=== PATIENT | male | born 1960 | race African-American/Black ===

== ENCOUNTER → 2018-03-26 | Outpatient (CLI) | payer BC, MEDICAID | END | disposition home or self-care (01) | LOC: LABWHC1 10:35 | PROVIDERS: ATTEND Surgery Plastic and Reconstructive Surgery | DX: K43.9 Ventral hernia without obstruction or gangrene (principal) | CPT/HCPCS: 36415; 86850; 86900; 86901 ==

== ENCOUNTER → 2018-04-02 | Outpatient (CLI) | payer BC, MEDICAID ==
[2018-04-02 16:05] LABS: HCT 44.2 % (39.0-53.0); HGB 14.8 gm/dL (13.0-17.5); MCH 28.4 pg (25.0-35.0); MCHC 33.5 g/dL (31.0-37.0); MCV 84.9 fL (80.0-100.0); Mean Platelet Volume 8.4; Platelet Count 254 k/uL (150-450); RDW 13.7 % (11.5-15.5); WBC 6.5 k/uL (3.8-10.6)
[2018-04-02 16:15] LABS: Anion Gap 10 mmol/L; Blood Urea Nitrogen 12 mg/dL (9-20); Carbon Dioxide 26 mmol/L (22-30); Chloride 104 mmol/L (98-107); Potassium 3.8 mmol/L (3.5-5.1); Sodium 140 mmol/L (137-145)
== END | disposition home or self-care (01) ==
LOC: LABPAT 15:45
PROVIDERS: ATTEND Internal Medicine Interventional Cardiology
DX: Z01.812 Encounter for preprocedural laboratory examination (principal)
CPT/HCPCS: 36415; 80051; 82565; 84520; 85027

== ENCOUNTER 2018-04-07 09:20 | Day surgery (SDC) | payer BC, MEDICAID ==
[2018-04-06 08:21] VITALS: BMI 30.9
[~2018-04-07 09:20] MED LIST: ALPRAZolam 0.25 MG TAB PO PRN; ASPIRIN 325 MG TAB PO ONE; SODIUM CHLORIDE 0.9% 1,000 ML in EMPTY BAG 1 BAG IV ONE
[2018-04-07 09:55] VITALS: TEMP 98
[2018-04-07] MEDS ORDERED: hydrALAZINE HCL 20 MG/ML 1 ML VIAL ONE (10:25)
[2018-04-07 10:26] LABS: Glucose,Whole Blood 146 mg/dL (75-99)
[2018-04-07] MEDS: MIDAZOLAM 2 MG/2 ML VIAL IV ONE ×2 (12:52→12:55)
[2018-04-07] MEDS ORDERED: LIDOCAINE 1% INJ 10MG/ML (20 ML MDV) SQ ONE (12:55)
[2018-04-07] MEDS ORDERED: HEPARIN SODIUM 1,000 UN/ML (10ML VL) IV ONE (12:57)
[2018-04-07] MEDS: VERAPAMIL SYRINGE (5 MG/10 ML) INTRAARTER ONE ×2 (12:57→13:05)
[2018-04-07] MEDS ORDERED: RX INFO: IV CONTRAST WAS GIVEN 1 EACH MISC MISCELLANE PRN (13:10)
[2018-04-07] MEDS ORDERED: SODIUM CHLORIDE 0.9% 1,000 ML IV SCH (13:15)
[2018-04-07] MEDS ORDERED: IOPAMIDOL-370 125ML BTL INJ ONE (13:16)
--- NOTE | 2018-04-07 13:38 | CC ---
CARDIAC CATHETERIZATION REPORT DATE OF SERVICE: 04/07/2018 PERFORMING PHYSICIAN: Terry Mir MD, merchandising execution manager. PROCEDURE PERFORMED: 1. Selective right and left coronary angiogram. 2. Left heart catheterization. INDICATION: This is a pleasant 58-year-old gentleman with history of diabetes as well as hypertension and history of smoking, was referred for cardiac assessment before abdominal surgery. The patient underwent myocardial perfusion imaging stress test and that revealed ischemia involving the inferior wall. Because of that, a heart catheterization was recommended. APPROACH: Right radial artery. COMPLICATION: None. LEVEL OF SEDATION: Moderate with sedation length of 12 minutes. PROCEDURE DESCRIPTION: After obtaining an informed consent, the patient was brought to the cardiac distillery laborer. The right radial artery was cannulated using micropuncture technique, the micropuncture wire passed easily then I placed a 6-Lithuanian sheath in the right common femoral artery. After that, I did give the patient 2 mg of verapamil IA and 10,000 units of heparin IV. I did after that selective right and left coronary angiogram using JR4 and JL3.5 catheters. I did perform left heart catheterization using JR4 catheter which flipped into the LV then I did pullback across the aortic valve. The procedure was completed without any complication. SELECTIVE CORONARY ANGIOGRAM: 1. The RCA is a large caliber vessel and it is a dominant vessel. It is angiographically normal. It bifurcates distally into PDA and PLV branches both are angiographically normal. 2. The left main is angiographically normal. It bifurcates into left circumflex, ramus intermedius, and left anterior descending artery. 3. The left circumflex is a large caliber vessel. It is a nondominant vessel. The left circumflex itself is angiographically normal. In the midportion it gives rise into a large OM branch which seems to be angiographically normal and distally gives rise into a second OM branch which seems to be angiographically normal. 4. The ramus intermedius bifurcates into 2 branches and both are angiographically normal. 5. The LAD: The proximal LAD looks angiographically normal. The mid and distal LAD are normal as well. HEMODYNAMICS: The left ventricular end-diastolic pressure was 12 mmHg and no gradient was identified across the aortic valve. CONCLUSION: 1. Normal coronary angiogram. 2. Normal left ventricular end-diastolic pressure. Postprocedure management is medical treatment. MMODL / IJN: [id number] /
--- NOTE | 2018-04-07 13:59 | LTR ---
DATE OF SERVICE: 04/07/2018 RE: Dillan Beckwith Dear Dr. Gibson; Mr. Dillan Mosquera underwent today a heart catheterization and that revealed normal coronaries. From the cardiovascular standpoint of view, the patient can proceed with the hernia surgery. Thank you for allowing us to participate in his care and please do not hesitate to call if you have any question or concern. Sincerely, MD EBENEZER Ellsworth / ASHLEYN: [id number] /
--- NOTE | 2018-04-07 13:59 | LTR ---
DATE OF SERVICE: 04/07/2017 RE: Dillan Mosquera Dear Dr. Perez; Mr. Dillan Mosquera was referred to see me for preop cardiac assessment before hernia surgery. As you know, he is a pleasant 58-year-old gentleman with diabetes, hypertension, and significant history of smoking. He underwent a myocardial perfusion imaging stress test which revealed inferior ischemia. The echocardiogram showed normal LV function with mild aortic insufficiency. Dillan underwent a heart catheterization and that revealed normal coronaries. I want to thank you for allowing me to participate in his care and please do not hesitate to call if you have any question or concern. Sincerely, MD EBENEZER Ellsworth / ASHLEYN: [id number] /
[2018-04-07 15:14] VITALS: RESP 16
[2018-04-07 15:44] VITALS: BP 162/89
[2018-04-07 17:39] LABS: Glucose,Whole Blood 157 mg/dL (75-99)
[2018-04-07] MEDS ORDERED: INSULIN ASPART 100 UNIT/ML 1 ML 10 ML VIAL SQ ONE (17:45)
[2018-04-07 17:55] VITALS: PULSE 68
== END 2018-04-07 18:26 | disposition home or self-care (01) ==
LOC: CATHCVL 09:20
PROVIDERS: ATTEND Internal Medicine Interventional Cardiology
DX: R94.39 Abnormal result of other cardiovascular function study (principal); I20.0 Unstable angina; E78.00 Pure hypercholesterolemia, unspecified; K46.9 Unspecified abdominal hernia without obstruction or gangrene; E11.9 Type 2 diabetes mellitus without complications; I10 Essential (primary) hypertension; Z82.49 Family history of ischemic heart disease and other diseases of the circulatory system; Z79.4 Long term (current) use of insulin; Z79.899 Other long term (current) drug therapy; F17.200 Nicotine dependence, unspecified, uncomplicated
CPT/HCPCS: 93458; C1894; J2250; J0360; J2001; J1644; Q9967

== ENCOUNTER 2018-05-27 14:42 | Day surgery (SDC) | payer BC, MEDICAID ==
[2018-05-18 12:32] VITALS: BMI 31.4
[~2018-05-27 14:42] MED LIST changes: -ALPRAZolam 0.25 MG TAB PO PRN; -ASPIRIN 325 MG TAB PO ONE; +DEXAMETHASONE SOD PHOSPHATE 10 MG/ML 1 ML VIAL IV ONE; +HEPARIN SODIUM,PORCINE 5,000 UNIT/ML 1 ML VIAL SQ ONE; +HYDROmorphone 1 MG/ML 1 ML SYRINGE IVP PRN; +LACTATED RINGERS 1,000 ML IV SCH; +LIDOCAINE 1% 20 ML VIAL (10MG/ML) FOR IV START INTRADERMA PRN; +ONDANSETRON 4 MG/2 ML VIAL IVP ONE; +SCOPOLAMINE 1.5MG/72HR PATCH TRANSDERM ONE; -SODIUM CHLORIDE 0.9% 1,000 ML in EMPTY BAG 1 BAG IV ONE; +ceFAZolin IN SWFI 2 GM/20 ML SYRINGE IVP ONE
== END 2018-05-27 15:19 | disposition home or self-care (01) ==
LOC: OR 14:42
PROVIDERS: ATTEND Surgery Plastic and Reconstructive Surgery
DX: Z53.8 Procedure and treatment not carried out for other reasons (principal); K43.9 Ventral hernia without obstruction or gangrene

== ENCOUNTER 2018-05-28 10:19 | Day surgery (SDC) | payer BC, MEDICAID ==
--- NOTE | 2018-05-28 08:44 | P.GSHP ---
History of Present Illness H&P Date: 05/28/18 CHIEF COMPLAINT: Ventral hernia HISTORY OF PRESENT ILLNESS: The patient is a 58-year-old male who presents with a history of swelling and pain along the abdomen from a hernia. Now he presents for surgical intervention. PAST MEDICAL HISTORY: Please see list. PAST SURGICAL HISTORY: Please see list. MEDICATIONS: Please see list. ALLERGIES: Please see list. SOCIAL HISTORY: No illicit drug use FAMILY HISTORY: No reports of Crohn disease or ulcerative colitis. REVIEW OF ORGAN SYSTEMS: CONSTITUTIONAL: No reports of fevers or chills. No reports of weight loss despite prior attempts. GI: Denies any blood in stools or constipation. PHYSICAL EXAM: VITAL SIGNS: Stable GENERAL: Well-developed pleasant male in no acute distress. HEENT: No scleral icterus. Extraocular movements grossly intact. Moist buccal mucosa. NECK: Supple without lymphadenopathy. CHEST: Unlabored respirations. Equal bilateral excursions. CARDIOVASCULAR: Regular rate and rhythm. Distal 2+ pulses. ABDOMEN: Soft, nondistended. Palpable defect of the abdomen. No peritoneal signs. MUSCULOSKELETAL: No clubbing, cyanosis, or edema. ASSESSMENT: 1. Ventral hernia PLAN: 1. Recommend proceeding with robotic ventral hernia repair with NO MESH per patient request 2. Benefits and risks of surgical intervention was discussed including possibility of open technique. 3. DVT prophylaxis. 4. Antibiotic prophylaxis. Past Medical History Past Medical History: Diabetes Mellitus, Hyperlipidemia, Hypertension, Sleep Apnea/CPAP/BIPAP Additional Past Medical History / Comment(s): uses CPAP History of Any Multi-Drug Resistant Organisms: None Reported Past Surgical History: Heart Catheterization, Hernia Repair Additional Past Surgical History / Comment(s): COLONOSCOPY Past Anesthesia/Blood Transfusion Reactions: No Reported Reaction Smoking Status: Former smoker - Past Family History Sister(s) Family Medical History: Cancer Additional Family Medical History / Comment(s): 1 SISTER FROM ESOPHAGEL CANCER. 1 SISTER HAD BREAST CANCER Medications and Allergies Home Medications Medication Instructions Recorded Confirmed Type INSULIN LISPRO (humaLOG) [humaLOG] 18 units SQ TID-W/MEALS 03/23/18 05/18/18 History Insulin Detemir [Levemir Flextouch] 50 units SQ HS 03/23/18 05/18/18 History PARoxetine HCL [Paxil] 20 mg PO HS 03/23/18 05/18/18 History Lisinopril [Zestril] 10 mg PO DAILY 04/06/18 05/18/18 History amLODIPine [Norvasc] 5 mg PO DAILY 04/06/18 05/18/18 History Allergies Allergy/AdvReac Type Severity Reaction Status Date / Time No Known Allergies Allergy Verified 05/18/18 12:29
[~2018-05-28 10:19] MED LIST changes: -DEXAMETHASONE SOD PHOSPHATE 10 MG/ML 1 ML VIAL IV ONE; -HYDROmorphone 1 MG/ML 1 ML SYRINGE IVP PRN; -LACTATED RINGERS 1,000 ML IV SCH; -LIDOCAINE 1% 20 ML VIAL (10MG/ML) FOR IV START INTRADERMA PRN; -ONDANSETRON 4 MG/2 ML VIAL IVP ONE; -SCOPOLAMINE 1.5MG/72HR PATCH TRANSDERM ONE
[2018-05-28] MEDS ORDERED: LACTATED RINGERS 1,000 ML IV SCH (10:52)
[2018-05-28] MEDS ORDERED: HYDROmorphone 0.5 MG/0.5 ML SYRINGE IVP PRN (10:52)
[2018-05-28] MEDS ORDERED: MIDAZOLAM 2 MG/2 ML VIAL IV PRN (10:52)
[2018-05-28] MEDS ORDERED: SCOPOLAMINE 1.5MG/72HR PATCH TRANSDERM ONE (10:52)
[2018-05-28] MEDS ORDERED: ONDANSETRON 4 MG/2 ML VIAL IVP ONE (10:52)
[2018-05-28] MEDS ORDERED: DEXAMETHASONE SOD PHOSPHATE 10 MG/ML 1 ML VIAL IV ONE (10:52)
[2018-05-28 11:14] LABS: Glucose,Whole Blood 156 mg/dL (75-99)
[2018-05-28] MEDS ORDERED: LIDOCAINE 1% 20 ML VIAL (10MG/ML) FOR IV START INTRADERMA ONE (11:35)
[2018-05-28] MEDS ORDERED: hydrALAZINE HCL 20 MG/ML 1 ML VIAL IVP ONE ×2 (13:13→13:38)
[2018-05-28] MEDS ORDERED: MIDAZOLAM 2 MG/2 ML VIAL ONE (13:52)
[2018-05-28] MEDS ORDERED: HYDROmorphone (PF) 1 MG/ML ONE (13:52)
[2018-05-28] MEDS ORDERED: GLYCOPYRROLATE 0.2 MG/ML 2 ML VIAL ONE (13:52)
[2018-05-28] MEDS ORDERED: NEOSTIGMINE 1 MG/ML 10 ML VIAL ONE (13:52)
[2018-05-28] MEDS ORDERED: ROCURONIUM BROMIDE 10 MG/ML 10 ML VIAL IV ONE (13:52)
[2018-05-28] MEDS ORDERED: MAGNESIUM SULFATE 4 MEQ/ML 2 ML VIAL ONE (13:52)
[2018-05-28] MEDS ORDERED: ePHEDrine SULFATE/0.9% NACL/PF 50 MG/5 ML SYRINGE IV ONE (13:52)
[2018-05-28] MEDS ORDERED: fentaNYL (PF) 50 MCG/ML 2 ML AMP ONE (13:52)
[2018-05-28] MEDS ORDERED: PROPOFOL 10 MG/ML 20 ML VIAL IV ONE (13:52)
[2018-05-28] MEDS ORDERED: BUPIVACAIN-EPI 0.25%-1:200,000 30 ML VIAL SQ ONE (14:37)
[2018-05-28] MEDS ORDERED: MAGNESIUM SULFATE-D5W PMX 1 GM in DEXTROSE/WATER 1 100ML.BAG IVPB SCH (15:15)
[2018-05-28] MEDS ORDERED: LACTATED RINGERS 1,000 ML IV ONE (15:49)
[2018-05-28 16:22] VITALS: TEMP 97.9
[2018-05-28] MEDS ORDERED: HYDROmorphone 1 MG/ML 1 ML SYRINGE IVP ONE ×2 (16:22→16:32)
[2018-05-28 16:27] LABS: Glucose,Whole Blood 268 mg/dL (75-99)
--- NOTE | 2018-05-28 16:28 | P.OP ---
Date of Procedure: 05/28/18 Description of Procedure: SURGEON: MARIA G GIBSON MD PREOPERATIVE DIAGNOSES: 1. Recurrent incarcerated epigastric ventral hernia, 4 cm 2. Obesity due to excess calories, BMI 32.1 3. Insulin-dependent diabetes type 2 4. Hypertensive heart disease 5. Depressive disorder POSTOPERATIVE DIAGNOSES: 1. Recurrent incarcerated epigastric ventral hernia, 4 cm, involving transverse mesocolon 2. Obesity due to excess calories, BMI 32.1 3. Insulin-dependent diabetes type 2 4. Hypertensive heart disease 5. Depressive disorder 6. Recurrent incarcerated umbilical hernia, 2 cm OPERATION: 1. Robotic-assisted da Rachel Xi laparoscopic repair of recurrent incarcerated epigastric ventral hernia 4 cm without mesh 2. Robotic-assisted da Rachel Xi laparoscopic repair of recurrent incarcerated umbilical hernia 2 cm without mesh ANESTHESIA: General with local ESTIMATED BLOOD LOSS: 5 mL. SPECIMENS: None. COMPLICATIONS: None. INDICATIONS: The patient is a 58-year-old male who presents with recurrent incarcerated epigastric hernia. Surgical options were described. The patient declined any mesh repair despite the increased possibility of recurrence. Surgical intervention with laparoscopic versus robotic and open techniques were reviewed. The patient wishes to avoid mesh. Benefits and risks were thoroughly described. Informed consent was obtained. DESCRIPTION OF PROCEDURE: The patient was brought into the operating room and laid in supine position. After general induction, the abdomen had been prepped and draped in standard sterile fashion. Ioban draping was also placed. Prior to incision, a timeout protocol was confirmed with surgical team regarding the patient's name including procedures to be performed. The robot was primed prior to the procedure. A field block using local anesthetic was placed along hernia site including the proposed port sites. Initial incision was made with an #11 blade along the left upper quadrant. A 0 degree 5 mm laparoscopic trocar entry was performed. Diagnostic laparoscopy demonstrated an incarcerated ventral hernia of the epigastrium involving the mid transverse mesocolon without obstruction. Three 8 mm trocars were placed along the right lateral abdominal wall. Placements of the ports were 12 cm from the target anatomy and 8 cm apart. The [employer] robot was previously primed, prepped and draped then docked along the right side of the patient. I then sat at the robot [employer] console where working arms of the robot were scissors, vessel sealer, needle armored truck driver, and graspers placed by the assistant production editor. To address the incarcerated mesocolon of the mid transverse colon, vessel sealer was used. The fascia of the hernia was incised superiorly and inferiorly along the midline to allow complete reduction of the incarcerated contents. No injury to the colon was found. Separately, an umbilical hernia 5 cm distal to the epigastric hernia was also identified consistent with recurrence. Fascial defect of the epigastric hernia was 4 cm. After the incarcerated contents was reduced, the peritoneal fat was cleaned from the abdominal wall. Next, hemostasis was checked with cautery. The hernia defect of 4-cm was oversewn using #1 Stratafix with fascial imbrication 3. Similarly, attention was brought to the recurrent umbilical hernia and also addressed with reduction of the incarcerated contents followed by oversew of the fascial defect. A final endoscopic imaging was obtained. All instruments and pneumoperitoneum were evacuated from the abdominal cavity. The da Rachel Xi robot was undocked from the patient. I re-scrubbed into the case for closure of incisions. The incisions were reapproximated using 4-0 Monocryl in an interrupted subcuticular fashion. Exofin liquid glue was applied to the skin after cleansing the skin with normal saline and dilute hydrogen peroxide. An umbilical dressing using 4 x 4 gauze and Tegaderm was placed along the midline followed by an abdominal binder. At the end of the procedure, needle, sponge, and instrument count had been verified correct by surgical specialist. The patient was taken to the postanesthesia care unit in stable condition. FINDINGS: 1. Recurrent incarcerated ventral hernia epigastrium, 4 cm involving transverse mesocolon 2. Recurrent incarcerated ventral hernia epigastrium, 2 cm involving omentum 3. Mesh repair avoided per patient request. Plan - Discharge Summary New Discharge Prescriptions: New HYDROcodone/APAP 5-325MG [[place] 5-325] 1 tab PO Q4HR PRN 3 Days #18 tab PRN Reason: Pain No Action INSULIN LISPRO (humaLOG) [humaLOG] 18 units SQ TID-W/MEALS PARoxetine HCL [Paxil] 20 mg PO HS Insulin Detemir [Levemir Flextouch] 50 units SQ HS amLODIPine [Norvasc] 5 mg PO DAILY Lisinopril [Zestril] 10 mg PO DAILY Discharge Medication List INSULIN LISPRO (humaLOG) [humaLOG] 18 units SQ TID-W/MEALS 03/23/18 [History] Insulin Detemir [Levemir Flextouch] 50 units SQ HS 03/23/18 [History] PARoxetine HCL [Paxil] 20 mg PO HS 03/23/18 [History] Lisinopril [Zestril] 10 mg PO DAILY 04/06/18 [History] amLODIPine [Norvasc] 5 mg PO DAILY 04/06/18 [History] HYDROcodone/APAP 5-325MG [[place] 5-325] 1 tab PO Q4HR PRN 3 Days #18 tab [Rx] Follow up Appointment(s)/Referral(s): Maria G Gibson MD [STAFF PHYSICIAN] - 05/31/18 Patient Instructions/Handouts: Abdominal Binder (DC), Ventral Hernia Repair (DC ) Activity/Diet/Wound Care/Special Instructions: No lifting over 4 pounds in 4 weeks. Wear abdominal binder at all times except for showering. No baths for soaks. Do not remove dressing Discharge Disposition: HOME SELF-CARE
[2018-05-28] MEDS ORDERED: INSULIN ASPART 100 UNIT/ML 1 ML 10 ML VIAL SQ ONE (16:33)
[2018-05-28 17:49] VITALS: RESP 18
[2018-05-28] MEDS ORDERED: HYDROcodone/APAP 5-325MG 1 EACH TAB PO ONE (18:04)
[2018-05-28 18:16] LABS: Glucose,Whole Blood 223 mg/dL (75-99)
[2018-05-28 18:21] VITALS: PULSE 87
[2018-05-28 18:37] VITALS: BP 147/73
== END 2018-05-28 19:03 | disposition home or self-care (01) ==
LOC: OR 10:19
PROVIDERS: ATTEND Surgery Plastic and Reconstructive Surgery
DX: K43.0 Incisional hernia with obstruction, without gangrene (principal); K42.0 Umbilical hernia with obstruction, without gangrene; E66.09 Other obesity due to excess calories; Z68.32 Body mass index [BMI] 32.0-32.9, adult; E11.9 Type 2 diabetes mellitus without complications; I11.9 Hypertensive heart disease without heart failure; F32.9 Major depressive disorder, single episode, unspecified; E78.5 Hyperlipidemia, unspecified; G47.33 Obstructive sleep apnea (adult) (pediatric); Z99.89 Dependence on other enabling machines and devices; Z79.4 Long term (current) use of insulin; Z79.899 Other long term (current) drug therapy; Z87.891 Personal history of nicotine dependence
CPT/HCPCS: 49653 ×2; J2250; J0360; J1644; J1100; J3475; J2710; J2405; J3010; J1170; J2704; J0690

== ENCOUNTER → 2019-03-03 | Outpatient (CLI) | payer BC, MEDICAID ==
--- NOTE | 2019-03-03 12:42 | CONS ---
CONSULTATION DATE OF SERVICE: 03/03/2019 A 59-year-old gentleman has been evaluated in the sleep center for obstructive sleep apnea-hypopnea syndrome. HISTORY OF PRESENT ILLNESS/SLEEP-WAKE EVALUATION: Patient has history of obstructive sleep apnea for more than 10 years. He continued to use his CPAP equipment but recently he developed problems with his CPAP unit. Sometimes in the middle of the night CPAP unit does not work well. He changed his weight down around 20 pounds for the last several months. 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 Sometimes he goes to bed around 10 a.m. and sleeps until 5:30 to 6 p.m. or sometimes he goes to bed at 9:30 p.m. to 7 a.m. [place] Sleepiness Scale today is 4. PAST MEDICAL HISTORY: Positive for hypertension, diabetes. PAST SURGICAL HISTORY: Several surgeries for abdominal hernia in May 2018. MEDICATIONS: Levemir, Humalog, Nuvigil, lisinopril. SOCIAL HISTORY: Negative for smoking. Alcohol consumption occasional. FAMILY HISTORY: Positive for hypertension and diabetes. REVIEW OF SYSTEMS: Awakenings from sleep if he has any problems with CPAP unit. PHYSICAL EXAMINATION: During physical exam, an gentleman without distress. VITAL SIGNS: BP 188/103 on the right arm, 173/85 on the left, RR 16, height 5 feet 9 inches, weight 217, body mass index 32.0, temperature 98.8, oxygen saturation at room air 95%, HEENT: Oropharynx extremely low position of soft palate. Mallampati 4. Neck is wide, 17-1/2 inches in circumference. NECK: Supple, no JVD. Thyroid is not palpable. LUNGS: Clear to percussion and to auscultation. Good air exchange. No wheezing or rhonchi. HEART: S1, S2 regular. No murmurs, gallops, or rubs. ABDOMEN: Soft and nontender. Bowel sounds are present. No organomegaly appreciated. EXTREMITIES: No clubbing or cyanosis. BAKELITE MOLDER: Awake, alert, and oriented X3. Cranial nerves 2 to 7 intact. There is no fasciculation or atrophy. noted. No focal deficits observed. IMPRESSION: 1. Obstructive sleep apnea-hypopnea syndrome for many years. Patient continued to use his CPAP equipment every night for the whole night, but recently developed some problems with his CPAP equipment, extremely low position of soft palate, wide neck. 2. Mild obesity. Body mass index 32.0. 3. Hypertension. 4. Diabetes mellitus. 5. Status post 2 surgeries for abdominal hernia. PLAN: 1. Prescription to replace CPAP unit. 2. Sleep hygiene with regular time in bed for least 7-1/2 hours. 3. Precautions related to driving. No driving if feeling sleepiness. 4. Prescription for all necessary CPAP supplies including mask, tube, filters. Thank you very much for allowing me to participate in management of your patient. Sincerely, Praveen Costello MD, PhD, FAASM Diplomat of [employer] Station Operator [facility] [place] MMODL / IJN: [id number] /
== END | disposition home or self-care (01) ==
LOC: SLEEP 10:21
PROVIDERS: ATTEND Internal Medicine
DX: G47.33 Obstructive sleep apnea (adult) (pediatric) (principal); E66.9 Obesity, unspecified; I10 Essential (primary) hypertension; E11.9 Type 2 diabetes mellitus without complications; Z68.32 Body mass index [BMI] 32.0-32.9, adult; Z99.89 Dependence on other enabling machines and devices; Z98.890 Other specified postprocedural states; Z79.4 Long term (current) use of insulin; Z79.899 Other long term (current) drug therapy

== ENCOUNTER → 2019-05-26 | Outpatient (CLI) | payer BC, MEDICAID ==
--- NOTE | 2019-05-26 15:22 | PN ---
PROGRESS NOTE DATE OF SERVICE: 05/26/2019 A 59-year-old gentleman who has been followed in the Sleep Center for treatment of obstructive sleep apnea-hypopnea syndrome recently patient received new CPAP unit and this is his first visit after he started to use new CPAP machine. The patient is able to use CPAP equipment every night for the whole night without significant problems. Occasionally, according to him, his , he still may have episodes of snoring. [place] Sleepiness Scale today is 11. I checked his CPAP unit, range of the pressure at 7-14 in average pressure 12.6, usage is 29/30 nights and 27/30 nights for more than 4 hours. The average usage is 7.7 hours which is good compliance. Leak is 7 L/minute which is normal range. Apnea-hypopnea index only 2.1, which is normal. MEDICATIONS: Levemir, Humalog, Nuvigil, lisinopril. PHYSICAL EXAM: Patient in no distress BP go on the right arm 166/97, HR 70, RR 16, weight 217, temp 98.3, oxygen saturation at room air 97% OROPHARYNX: Extremely low soft palate, Mallampati 4. Neck Supple, no JVD. Thyroid is not palpable. LUNGS Clear to percussion and to auscultation. Good air exchange. No wheezing or rhonchi. HEART S1, S2 regular. No murmurs, gallops, or rubs. ABDOMEN Soft and nontender. Bowel sounds are present. No organomegaly appreciated. EXTREMITIES No clubbing or cyanosis. NEURO: Awake, alert, and oriented X3. Cranial nerves 2 to 7 intact. There is no fasciculation or atrophy. noted. No focal deficits observed. IMPRESSION: 1. Obstructive sleep apnea-hypopnea syndrome. Patient demonstrated great compliance with treatment, benefitting from treatment. 2. Hypertension. 3. Diabetes mellitus. 4. Mild obesity. 5. Status post 2 surgeries for abdominal hernia. PLAN: 1. Patient will continue to use CPAP equipment every night for the whole night. 2. Watching and losing weigh. 3. I will increase the range of the pressure up to 16 to be sure that CPAP unit will cover any episodes of snoring. 4. No driving if feeling sleepiness. 5. I will maintain all necessary prescriptions for CPAP supplies including mask, tube, filters. 6. Patient is on treatment with modafinil 200 mg a day for any excessive daytime sleepiness. Patient will continue to take modafinil. Thank you very much for allowing me to participate in the management of your patient. Sincerely, Praveen Costello MD, PhD, FAASM Diplomat of [employer] Lard Bleacher of [facility] [place] MMODL / LESIA: [id number] /
== END | disposition home or self-care (01) ==
LOC: SLEEP 13:28
PROVIDERS: ATTEND Internal Medicine
DX: G47.33 Obstructive sleep apnea (adult) (pediatric) (principal); I10 Essential (primary) hypertension; E11.9 Type 2 diabetes mellitus without complications; E66.9 Obesity, unspecified; Z99.89 Dependence on other enabling machines and devices; Z98.890 Other specified postprocedural states; Z79.4 Long term (current) use of insulin; Z79.899 Other long term (current) drug therapy

== ENCOUNTER 2021-08-20 22:17 | Inpatient (IN) | payer BC, MEDICAID ==
[2021-08-20 22:39] LABS: Glucose,Whole Blood 200 mg/dL (75-99)
--- NOTE | 2021-08-20 22:43 | ED ---
Dizziness HPI - General Chief Complaint: Dizziness Stated Complaint: SOB Time Seen by Provider: 08/20/21 22:24 Source: patient, RN notes reviewed, old records reviewed Mode of arrival: wheelchair Limitations: no limitations - History of Present Illness Initial Comments: This is a 61-year-old male to the ER for evaluation today. Patient has history of high blood pressure off and has been off blood pressure medications for one year. Patient's sons were currently at bedside state they heard a fall earlier today around 9 PM. They found patient at that time with right arm pain. They thought he may have been a little confused at that time he was complaining of some difficulty breathing and they did give him a significant amount of Benadryl at that time 75 mg. Per them per the per the son's patient was also complaining of dizziness MD Complaint: dizziness, lightheadedness, near syncope -: unknown Timing: sudden onset, intermittent Description: off-balance, difficulty walking History of Same: Yes (This seems similar to the event he had prior to arrival) History of Trauma: Yes (patient did have a fall prior to arrival) Severity: moderate Improves With: nothing Worsens With: nothing Associated Symptoms: weakness, other (R arm spasm) - Related Data Home Medications Medication Instructions Recorded Confirmed INSULIN LISPRO (humaLOG) [humaLOG] 18 units SQ TID-W/MEALS 03/23/18 05/28/18 Insulin Detemir [Levemir Flextouch 50 units SQ HS 03/23/18 05/28/18 Pen] PARoxetine HCL [Paxil] 20 mg PO HS 03/23/18 05/28/18 amLODIPine [Norvasc] 5 mg PO DAILY 04/06/18 05/28/18 lisinopriL [Zestril] 10 mg PO DAILY 04/06/18 05/28/18 Previous Rx's Medication Instructions Recorded HYDROcodone/APAP 5-325MG [Cropsey 1 tab PO Q4HR PRN 3 Days #18 tab 05/28/18 5-325] Allergies Allergy/AdvReac Type Severity Reaction Status Date / Time No Known Allergies Allergy Verified 08/20/21 22:22 Review of Systems ROS Statement: Those systems with pertinent positive or pertinent negative responses have been documented in the HPI. ROS Other: All systems not noted in ROS Statement are negative. Past Medical History Past Medical History: Diabetes Mellitus, Hyperlipidemia, Hypertension, Sleep Apnea/CPAP/BIPAP Additional Past Medical History / Comment(s): uses CPAP History of Any Multi-Drug Resistant Organisms: None Reported Past Surgical History: Heart Catheterization, Hernia Repair Additional Past Surgical History / Comment(s): COLONOSCOPY Past Anesthesia/Blood Transfusion Reactions: No Reported Reaction Past Psychological History: Depression Smoking Status: Never smoker Past Alcohol Use History: Occasional Past Drug Use History: None Reported - Past Family History Sister(s) Family Medical History: Cancer Additional Family Medical History / Comment(s): 1 SISTER FROM ESOPHAGEL CANCER. 1 SISTER HAD BREAST CANCER General Exam - General Exam Comments Initial Comments: GCS 15 Initial NIH 0 R arm spasm General appearance: alert, in no apparent distress, anxious Head exam: Present: atraumatic, normocephalic, normal inspection Eye exam: Present: normal appearance, PERRL, EOMI. Absent: scleral icterus, conjunctival injection, periorbital swelling ENT exam: Present: normal exam, mucous membranes moist Neck exam: Present: normal inspection. Absent: tenderness, meningismus, lymphadenopathy Respiratory exam: Present: normal lung sounds bilaterally. Absent: respiratory distress, wheezes, rales, rhonchi, stridor Cardiovascular Exam: Present: normal rhythm, tachycardia, normal heart sounds. Absent: systolic murmur, diastolic murmur, rubs, gallop, clicks GI/Abdominal exam: Present: soft, normal bowel sounds. Absent: distended, tenderness, guarding, rebound, rigid Extremities exam: Present: normal inspection, full ROM, normal capillary refill. Absent: tenderness, pedal edema, joint swelling, calf tenderness Back exam: Present: normal inspection Neurological exam: Present: alert, oriented X3, CN II-XII intact Expanded Neurological exam: Present: tremor (R arm), protecting the airway. Absent: inattentive, memory loss-remote event, memory loss-recent event, ataxia, receptive aphasia, expressive aphasia, total aphasia Patient oriented to: Present: person, place, time Speech: Absent: fluid speech, receptive aphasia, expressive aphasia, total aphasia, anomia Cranial nerves: EOM's Intact: Normal, Gag Reflex: Normal, Tongue Deviation: Normal, Nystagmus: Normal, Facial Sensation: Normal, Facial Palsy with Forehead Movement: Normal, Facial Palsy without Forehead Movement: Normal Ataxia: Absent: yes Cerebellar function: Finger to Nose: Normal, Heel to Simons: Normal, Romberg: Normal Sensory exam: Upper Extremity Light Touch: Normal, Lower Extremity Light Touch: Normal Motor strength exam: RUE: 5, LUE: 5, RLE: 5, LLE: 5 Eye Response: (4) open spontaneously Motor Response: (6) obeys commands Verbal Response: (5) oriented Psychiatric exam: Present: normal affect, normal mood Skin exam: Present: warm, dry, intact, normal color. Absent: rash Course Vital Signs 08/20/21 08/20/21 08/20/21 22:18 22:39 23:07 Temperature 98.6 F Pulse Rate 121 H 114 H 89 Respiratory 18 18 18 Rate Blood Pressure 239/132 227/145 226/130 O2 Sat by Pulse 97 95 98 Oximetry 08/20/21 08/20/21 08/21/21 23:21 23:50 00:05 Temperature Pulse Rate 96 93 92 Respiratory 18 18 18 Rate Blood Pressure 208/133 185/117 220/133 O2 Sat by Pulse 97 98 100 Oximetry 08/21/21 08/21/21 08/21/21 00:16 00:50 01:00 Temperature Pulse Rate 89 94 94 Respiratory 18 20 18 Rate Blood Pressure 172/102 195/119 197/121 O2 Sat by Pulse 97 96 96 Oximetry 08/21/21 08/21/21 08/21/21 01:15 01:25 01:30 Temperature Pulse Rate 93 90 89 Respiratory 18 18 18 Rate Blood Pressure 193/118 190/117 196/119 O2 Sat by Pulse 96 96 98 Oximetry 08/21/21 08/21/21 08/21/21 01:35 01:40 01:45 Temperature Pulse Rate 92 96 92 Respiratory 18 18 18 Rate Blood Pressure 187/122 198/117 153/91 O2 Sat by Pulse 96 92 L Oximetry 08/21/21 08/21/21 08/21/21 01:48 01:55 02:00 Temperature Pulse Rate 91 92 90 Respiratory 18 18 18 Rate Blood Pressure 157/100 155/94 164/96 O2 Sat by Pulse 96 95 96 Oximetry 08/21/21 08/21/21 08/21/21 02:15 02:30 02:45 Temperature Pulse Rate 92 90 86 Respiratory 18 18 18 Rate Blood Pressure 196/118 137/85 165/87 O2 Sat by Pulse 96 98 98 Oximetry 08/21/21 08/21/21 08/21/21 03:00 03:20 03:30 Temperature Pulse Rate 87 86 89 Respiratory 18 18 18 Rate Blood Pressure 150/91 156/84 147/100 O2 Sat by Pulse 97 98 98 Oximetry 08/21/21 08/21/21 08/21/21 03:40 04:00 04:32 Temperature Pulse Rate 89 86 91 Respiratory 18 18 18 Rate Blood Pressure 160/92 155/83 181/109 O2 Sat by Pulse 96 98 97 Oximetry 08/21/21 08/21/21 08/21/21 04:41 05:20 05:30 Temperature Pulse Rate 90 97 94 Respiratory 18 18 18 Rate Blood Pressure 169/102 185/104 156/94 O2 Sat by Pulse 96 96 94 L Oximetry 08/21/21 08/21/21 08/21/21 05:51 06:00 06:30 Temperature 99.0 F Pulse Rate 89 89 90 Respiratory 18 18 18 Rate Blood Pressure 148/93 171/94 150/88 O2 Sat by Pulse 98 99 100 Oximetry 08/21/21 06:40 Temperature Pulse Rate 94 Respiratory 18 Rate Blood Pressure 164/104 O2 Sat by Pulse 99 Oximetry - Reevaluation(s) Reevaluation #1: 08/20/21 23:00 Medical record is reviewed 08/21/21 00:49 A she has blood pressure is significantly difficult to control here in the ER Reevaluation #2: 08/21/21 00:50 Patient was standing up to Pee when his right leg gave out (to have significant right-sided weakness right arm continued, right leg new as well as facial droop. Patient did fall to ground while he was pain secondary to right leg giving away Patient also this time is very anxious, complaining some shortness of breath 08/21/21 00:52 Code stroke paged secondary to these new symptoms patient is currently having 08/21/21 00:56 NIH on reevaluation Right tongue deviation, right facial droop right arm and leg weakness compared to left forearm 5 NIH 4 Reevaluation #3: 08/21/21 01:12 Patient severely elevated blood pressure is difficult to make him a TPA candidate at this time Reevaluation #4: 08/21/21 04:21 Does appear to significant worsening of symptoms especially with speech - Consultations Consultation #1: Spoke with Dr. Guerra for long winder tender Neuro interventional this suggests possibly small thalamic bleed, blood pressure control remains no TPA candidate for acute bleeding on CT (thalamic bleed) not seen by our radiologist Spoke with Dr. Carranza, Dr. Machado, Dr. Cardozo who are all okay with admitting patient Consultation #2: Spoke with [facility] transfer accepting facility which they deny transfer EKG Findings - EKG Comments: EKG Findings:: EKG is sinus tachycardia 110 SC 174 QRS 108 QTc 498 Medical Decision Making - Medical Decision Making 61 male to the emergency department for evaluation of fall. Patient presented with an NIH of 0 been presented as a code stroke later in his stay after falling again here in the emergency department. Does have worsening symptoms at this time does show evidence of thalamic bleed which may, not candidate hypertensive emergency on strict blood pressure control with permissive hypertension and hydration - Lab Data Result diagrams: 08/20/21 22:54 08/20/21 22:54 Lab Results 08/20/21 08/20/21 08/20/21 Range/Units 22:36 22:54 22:54 WBC 9.1 (3.8-10.6) k/uL RBC 5.25 (4.30-5.90) m/uL Hgb 15.8 (13.0-17.5) gm/dL Hct 45.8 (39.0-53.0) % MCV 87.3 (80.0-100.0) fL MCH 30.0 (25.0-35.0) pg MCHC 34.4 (31.0-37.0) g/dL RDW 13.4 (11.5-15.5) % Plt Count 231 (150-450) k/uL MPV 9.5 Neutrophils % 76 % Lymphocytes % 18 % Monocytes % 4 % Eosinophils % 1 % Basophils % 0 % Neutrophils # 6.9 (1.3-7.7) k/uL Lymphocytes # 1.6 (1.0-4.8) k/uL Monocytes # 0.4 (0-1.0) k/uL Eosinophils # 0.1 (0-0.7) k/uL Basophils # 0.0 (0-0.2) k/uL PT 10.5 (9.0-12.0) sec INR 1.0 (<1.2) APTT 24.5 (22.0-30.0) sec Sodium (137-145) mmol/L Potassium (3.5-5.1) mmol/L Chloride (98-107) mmol/L Carbon Dioxide (22-30) mmol/L Anion Gap mmol/L BUN (9-20) mg/dL Creatinine (0.66-1.25) mg/dL Est GFR (CKD-EPI)AfAm (>60 ml/min/1.73 sqM) Est GFR (CKD-EPI)NonAf (>60 ml/min/1.73 sqM) Glucose (74-99) mg/dL POC Glucose (mg/dL) 200 H (75-99) mg/dL POC Glu Dip Lube Operator ID Riley Mandujano Lactic Ac Sepsis Rflx Plasma Lactic Acid [place] (0.7-2.0) mmol/L Calcium (8.4-10.2) mg/dL Phosphorus (2.5-4.5) mg/dL Magnesium (1.6-2.3) mg/dL Total Bilirubin (0.2-1.3) mg/dL AST (17-59) U/L ALT (4-49) U/L Alkaline Phosphatase (38-126) U/L Troponin I (0.000-0.034) ng/mL NT-Pro-B Natriuret Pep pg/mL Total Protein (6.3-8.2) g/dL Albumin (3.5-5.0) g/dL 08/20/21 08/20/21 08/20/21 Range/Units 22:54 22:54 22:54 WBC (3.8-10.6) k/uL RBC (4.30-5.90) m/uL Hgb (13.0-17.5) gm/dL Hct (39.0-53.0) % MCV (80.0-100.0) fL MCH (25.0-35.0) pg MCHC (31.0-37.0) g/dL RDW (11.5-15.5) % Plt Count (150-450) k/uL MPV Neutrophils % % Lymphocytes % % Monocytes % % Eosinophils % % Basophils % % Neutrophils # (1.3-7.7) k/uL Lymphocytes # (1.0-4.8) k/uL Monocytes # (0-1.0) k/uL Eosinophils # (0-0.7) k/uL Basophils # (0-0.2) k/uL PT (9.0-12.0) sec INR (<1.2) APTT (22.0-30.0) sec Sodium 139 (137-145) mmol/L Potassium 3.9 (3.5-5.1) mmol/L Chloride 101 (98-107) mmol/L Carbon Dioxide 23 (22-30) mmol/L Anion Gap 15 mmol/L BUN 15 (9-20) mg/dL Creatinine 1.00 (0.66-1.25) mg/dL Est GFR (CKD-EPI)AfAm >90 (>60 ml/min/1.73 sqM) Est GFR (CKD-EPI)NonAf 82 (>60 ml/min/1.73 sqM) Glucose 219 H (74-99) mg/dL POC Glucose (mg/dL) (75-99) mg/dL POC Glu Dip Lube Operator ID Lactic Ac Sepsis Rflx Plasma Lactic Acid Keyon 2.9 H* (0.7-2.0) mmol/L Calcium 9.7 (8.4-10.2) mg/dL Phosphorus 3.9 (2.5-4.5) mg/dL Magnesium 1.7 (1.6-2.3) mg/dL Total Bilirubin 0.4 (0.2-1.3) mg/dL AST 25 (17-59) U/L ALT 24 (4-49) U/L Alkaline Phosphatase 89 (38-126) U/L Troponin I <0.012 (0.000-0.034) ng/mL NT-Pro-B Natriuret Pep pg/mL Total Protein 8.6 H (6.3-8.2) g/dL Albumin 4.6 (3.5-5.0) g/dL 08/20/21 08/20/21 08/21/21 Range/Units 22:54 23:38 00:50 WBC (3.8-10.6) k/uL RBC (4.30-5.90) m/uL Hgb (13.0-17.5) gm/dL Hct (39.0-53.0) % MCV (80.0-100.0) fL MCH (25.0-35.0) pg MCHC (31.0-37.0) g/dL RDW (11.5-15.5) % Plt Count (150-450) k/uL MPV Neutrophils % % Lymphocytes % % Monocytes % % Eosinophils % % Basophils % % Neutrophils # (1.3-7.7) k/uL Lymphocytes # (1.0-4.8) k/uL Monocytes # (0-1.0) k/uL Eosinophils # (0-0.7) k/uL Basophils # (0-0.2) k/uL PT (9.0-12.0) sec INR (<1.2) APTT (22.0-30.0) sec Sodium (137-145) mmol/L Potassium (3.5-5.1) mmol/L Chloride (98-107) mmol/L Carbon Dioxide (22-30) mmol/L Anion Gap mmol/L BUN (9-20) mg/dL Creatinine (0.66-1.25) mg/dL Est GFR (CKD-EPI)AfAm (>60 ml/min/1.73 sqM) Est GFR (CKD-EPI)NonAf (>60 ml/min/1.73 sqM) Glucose (74-99) mg/dL POC Glucose (mg/dL) 107 H (75-99) mg/dL POC Glu Dip Lube Operator ID Demetri, Pastor Lactic Ac Sepsis Rflx Y Plasma Lactic Acid Keyon (0.7-2.0) mmol/L Calcium (8.4-10.2) mg/dL Phosphorus (2.5-4.5) mg/dL Magnesium (1.6-2.3) mg/dL Total Bilirubin (0.2-1.3) mg/dL AST (17-59) U/L ALT (4-49) U/L Alkaline Phosphatase (38-126) U/L Troponin I (0.000-0.034) ng/mL NT-Pro-B Natriuret Pep 171 pg/mL Total Protein (6.3-8.2) g/dL Albumin (3.5-5.0) g/dL 08/21/21 Range/Units 01:40 WBC (3.8-10.6) k/uL RBC (4.30-5.90) m/uL Hgb (13.0-17.5) gm/dL Hct (39.0-53.0) % MCV (80.0-100.0) fL MCH (25.0-35.0) pg MCHC (31.0-37.0) g/dL RDW (11.5-15.5) % Plt Count (150-450) k/uL MPV Neutrophils % % Lymphocytes % % Monocytes % % Eosinophils % % Basophils % % Neutrophils # (1.3-7.7) k/uL Lymphocytes # (1.0-4.8) k/uL Monocytes # (0-1.0) k/uL Eosinophils # (0-0.7) k/uL Basophils # (0-0.2) k/uL PT (9.0-12.0) sec INR (<1.2) APTT (22.0-30.0) sec Sodium (137-145) mmol/L Potassium (3.5-5.1) mmol/L Chloride (98-107) mmol/L Carbon Dioxide (22-30) mmol/L Anion Gap mmol/L BUN (9-20) mg/dL Creatinine (0.66-1.25) mg/dL Est GFR (CKD-EPI)AfAm (>60 ml/min/1.73 sqM) Est GFR (CKD-EPI)NonAf (>60 ml/min/1.73 sqM) Glucose (74-99) mg/dL POC Glucose (mg/dL) (75-99) mg/dL POC Glu Dip Lube Operator ID Lactic Ac Sepsis Rflx Plasma Lactic Acid Keyon 1.5 (0.7-2.0) mmol/L Calcium (8.4-10.2) mg/dL Phosphorus (2.5-4.5) mg/dL Magnesium (1.6-2.3) mg/dL Total Bilirubin (0.2-1.3) mg/dL AST (17-59) U/L ALT (4-49) U/L Alkaline Phosphatase (38-126) U/L Troponin I (0.000-0.034) ng/mL NT-Pro-B Natriuret Pep pg/mL Total Protein (6.3-8.2) g/dL Albumin (3.5-5.0) g/dL - Radiology Data Radiology results: report reviewed (CT brain negative for acute disease after code stroke CT brain CT had neck negative for acute disease CT brain prior to admission does show thalamic bleed which is present on all prior CTs), image reviewed Critical Care Time Critical Care Time: Yes Total Critical Care Time: 31 Disposition Clinical Impression: Dehydration, Transient cerebral ischemia, Cerebrovascular accident (CVA), Hypertensive emergency Disposition: ADMITTED IP TO THIS HOSP Condition: Serious Is patient prescribed a controlled substance at d/c from ED?: No
[2021-08-20] MEDS ORDERED: LABETALOL 5 MG/ML VIAL MDV IVP STA ×2 (22:44→23:09)
[2021-08-20] MEDS ORDERED: SODIUM CHLORIDE 0.9% 1,000 ML IV STA (22:44)
--- NOTE | 2021-08-20 23:12 | CT ---
EXAMINATION TYPE: CT brain wo con DATE OF EXAM: 08/20/2021 COMPARISON: None HISTORY: ams, pt fell & was having rt sided weakness & dizzy CT DLP: 1070.4 mGycm Automated exposure control for dose reduction was used. Images of the brain obtained without contrast. Ventricles have normal size. There is no mass effect or midline shift. There is no sign of intracrani al hemorrhage. Calvarium is intact. There is no evidence of cerebral edema. Skull base is intact. The re is normal aeration of the mastoid sinuses. IMPRESSION: Negative unenhanced head CT scan.
[2021-08-20 23:14] LABS: Basophils % (A) 0 %; Eosinophils # (A) 0.1 k/uL (0-0.7); Eosinophils % (A) 1 %; HCT 45.8 % (39.0-53.0); HGB 15.8 gm/dL (13.0-17.5); Lymphocytes # (A) 1.6 k/uL (1.0-4.8); Lymphocytes % (A) 18 %; MCHC 34.4 g/dL (31.0-37.0); MCV 87.3 fL (80.0-100.0); Mean Platelet Volume 9.5; Monocytes # (A) 0.4 k/uL (0-1.0); Monocytes % (A) 4 %; Neutrophils # (A) 6.9 k/uL (1.3-7.7); Neutrophils % (A) 76 %; Platelet Count 231 k/uL (150-450); RBC 5.25 m/uL (4.30-5.90); RDW 13.4 % (11.5-15.5); WBC 9.1 k/uL (3.8-10.6)
[2021-08-20 23:24] LABS: Partial Thromboplastin Time 24.5 sec (22.0-30.0); Prothrombin Time 10.5 sec (9.0-12.0)
[2021-08-20] MEDS ORDERED: hydrALAZINE HCL 20 MG/ML 1 ML VIAL IVP STA (23:28)
[2021-08-20 23:30] LABS: ALT 24 U/L (4-49); AST 25 U/L (17-59); African American GFR (CKD) >90 (>60 ml/min/1.73 sqM); Albumin 4.6 g/dL (3.5-5.0); Alkaline Phosphatase 89 U/L (38-126); Anion Gap 15 mmol/L; Blood Urea Nitrogen 15 mg/dL (9-20); Calcium 9.7 mg/dL (8.4-10.2); Carbon Dioxide 23 mmol/L (22-30); Chloride 101 mmol/L (98-107); Glucose 219 mg/dL (74-99); Magnesium 1.7 mg/dL (1.6-2.3); Non-African American GFR(CKD) 82 (>60 ml/min/1.73 sqM); Phosphorus 3.9 mg/dL (2.5-4.5); Potassium 3.9 mmol/L (3.5-5.1); Sodium 139 mmol/L (137-145); Total Bilirubin 0.4 mg/dL (0.2-1.3); Total Protein 8.6 g/dL (6.3-8.2)
[2021-08-21] MEDS ORDERED: hydrALAZINE HCL 20 MG/ML 1 ML VIAL IVP STA (00:05)
[2021-08-21] MEDS ORDERED: LABETALOL 5 MG/ML VIAL MDV IVP STA (00:05)
--- NOTE | 2021-08-21 00:12 | XR ---
EXAMINATION TYPE: XR chest 1V DATE OF EXAM: 08/20/2021 COMPARISON: NONE HISTORY: Altered mental status TECHNIQUE: Single view FINDINGS: There is no heart failure nor confluent pneumonic infiltrate. Costophrenic angles are clear . There are chest leads. Bony thorax appears intact. IMPRESSION: No active cardiopulmonary disease.
[2021-08-21] MEDS ORDERED: cloNIDine 0.3 MG/24HR PATCH TRANSDERM SCH (00:15)
[2021-08-21] MEDS ORDERED: LORazepam 2 MG/ML INJ IV STA (00:46)
[2021-08-21] MEDS ORDERED: MORPHINE SULFATE 4 MG/ML SYRINGE IVP STA (00:46)
[2021-08-21] MEDS ORDERED: MORPHINE SULFATE 4 MG/ML SYRINGE IV PRN (00:46)
[2021-08-21] MEDS ORDERED: LORazepam 2 MG/ML INJ IV PRN (00:46)
[2021-08-21 01:00] LABS: Glucose,Whole Blood 107 mg/dL (75-99)
--- NOTE | 2021-08-21 01:21 | CT ---
EXAMINATION TYPE: CT brain wo con DATE OF EXAM: 08/21/2021 COMPARISON: Yesterday HISTORY: AMS/Fall CT DLP: 1849.4 mGycm Automated exposure control for dose reduction was used. Ventricles have normal size. There is no mass effect or midline shift. There is no sign of intracrani al hemorrhage. The calvarium is intact. IMPRESSION: Negative unenhanced head CT scan. No change
[2021-08-21] MEDS: CLEVIDIPINE BUTYRATE 25 MG in EMPTY BAG 1 BAG IV SCH ×8 (01:27→17:25)
--- NOTE | 2021-08-21 01:27 | CT ---
EXAMINATION TYPE: CT angio head neck DATE OF EXAM: 08/21/2021 COMPARISON: None HISTORY: AMS/Fall CT DLP: 1849.4 mGycm Automated exposure control for dose reduction was used. CONTRAST: Performed with IV Contrast, patient injected with 65 mL of Isovue 370. Images obtained from the aortic arch to the vertex of the brain without IV contrast. There are Three- D postprocessed images. There is normal branching pattern of the great vessels on the aortic arch. There is arterial flow in both subclavian arteries. There is arterial flow within the common internal and external carotid sergio iqra bilaterally. There is wide patency of the carotid artery bifurcations. Exam limited slightly by motion at the level of the oropharynx. There is arterial flow both vertebral arteries. There is no ev idence of carotid or vertebral artery aneurysm or dissection. No evidence of hemodynamic stenosis. Th ere is arterial flow in the vertebral basilar artery system. There is arterial flow in the anterior middle and posterior cerebral arteries. I see no evidence of i ntracranial aneurysm or neovascularity. There is no mass effect. There is normal enhancement of the v enous sinuses. There is no evidence of intracranial hemodynamic arterial stenosis. IMPRESSION: Negative CT angiogram of the neck. Negative CT angiogram of the brain.
[2021-08-21] MEDS ORDERED: NALOXONE 0.4 MG/ML 1 ML VIAL IV PRN (02:21)
[2021-08-21] MEDS ORDERED: ASPIRIN 325 MG TAB PO STA (02:30)
[2021-08-21 04:00] LABS: Magnesium 1.7 mg/dL (1.6-2.3); Phosphorus 2.9 mg/dL (2.5-4.5)
--- NOTE | 2021-08-21 04:41 | CT ---
EXAMINATION TYPE: CT brain wo con DATE OF EXAM: 08/21/2021 COMPARISON: 08/21/2021 HISTORY: AMS CT DLP: 1074.4 mGycm Automated exposure control for dose reduction was used. Ventricles have normal size. There is no mass effect or midline shift. Calvarium is intact. There is a 5 mm area of increased density in the mid left thalamus consistent with acute hemorrhage. In retrospect this is not changed compared to the 2 previous exams 3 hours ago and 5 hours ago. Ronit rium is intact. IMPRESSION: High attenuation left thalamus consistent with small focal acute hemorrhage without change. This coul d be acute hemorrhagic infarct. This exam was discussed with Dr. Burns 4:45 AM.
[2021-08-21] MEDS ORDERED: PANTOPRAZOLE 40 MG/10 ML VIAL IV SCH (09:00)
[2021-08-21 09:23] VITALS: RESP 18
--- NOTE | 2021-08-21 09:47 | ECHOF ---
Referral Reason:Thrombus MEASUREMENTS -------- HEIGHT: 162.6 cm WEIGHT: 106.6 kg BP: RVIDd: 4.0 cm (< 3.3) IVSd: 1.6 cm (0.6 - 1.1) LVIDd: 3.4 cm (3.9 - 5.3) LVPWd: 2.6 cm (0.6 - 1.1) IVSs: 2.2 cm LVIDs: 4.3 cm LVPWs: 1.8 cm LA Diam: 4.4 cm (2.7 - 3.8) LAESV Index (A-L): 33.15 ml/m Ao Diam: 3.5 cm (2.0 - 3.7) AV Cusp: 2.3 cm (1.5 - 2.6) LA Diam: 4.1 cm (2.7 - 3.8) MV EXCURSION: 19.523 mm (> 18.000) MV EF SLOPE: 71 mm/s (70 - 150) EPSS: 0.9 cm MV E Juan Jose: 0.29 m/s MV DecT: 262 ms MV A Juan Jose: 0.85 m/s MV E/A Ratio: 0.34 FINDINGS -------- Sinus rhythm. This was a technically good study. There is severe concentric left ventricular hypertrophy. Overall left ventricular systolic function is low-normal with, an EF between 50 - 55 %. The right ventricle is normal in size. The left atrial size is normal. The right atrial size is normal. Aneurysmal Interatrial septum. Possible PFO vs ASD. Bubble study is suboptimal, non diagnostic The aortic valve is trileaflet, and appears structurally normal. No aortic stenosis or regurgitation. Mild mitral regurgitation is present. Mild tricuspid regurgitation present. Right ventricular systolic pressure is normal at < 35 mmHg. There is no pulmonic regurgitation present. There is no pericardial effusion. CONCLUSIONS -------- 1. There is severe concentric left ventricular hypertrophy. 2. Overall left ventricular systolic function is low-normal with, an EF between 50 - 55 %. 3. The right ventricle is normal in size. 4. The left atrial size is normal. 5. The right atrial size is normal. 6. Aneurysmal Interatrial septum. 7. Possible PFO vs ASD. 8. The aortic valve is trileaflet, and appears structurally normal. No aortic stenosis or regurgitati on. 9. Mild mitral regurgitation is present. 10. Mild tricuspid regurgitation present. 11. There is no pericardial effusion. EXTRACTOR AND WRINGER OPERATOR: Mayda Silver RDCS
--- NOTE | 2021-08-21 11:57 | P.CNPUL ---
History of Present Illness Consult date: 08/21/21 Requesting physician: Berny Carranza Jr Reason for consult: other (Critical care management) Chief complaint: Right-sided weakness, aphasia History of present illness: This is a 61-year-old gentleman with a known history of diabetes mellitus and hypertension. Apparently the patient has been off blood pressure medications for approximately one year. The patient's son was in the home and heard a fall around 9 PM last night. They found the patient on the ground with right arm weakness confusion and difficulty speaking. He was also complaining of dizziness and difficulty walking. He was brought into the emergency room for the same. Chest x-ray revealed no acute pulmonary process. CT angiogram of the head and neck were negative. Initial computed tomography scan of the brain was negative. No evidence of intracranial hemorrhage. Follow up computed tomography scan at 1 AM today was also negative. A third computed tomography scan was performed approximately 4:30 AM that revealed a high attenuation left thalamus consistent with a small focal acute hemorrhage. This could be acute hemorrhagic infarct. Since at times attempts were made by the ER staff to find a tertiary care center with a neurosurgeon for higher level of care. Initially no beds were available and he was going to be admitted to the intensive care unit. He is seen today in consultation in the emergency department. He is awake. He has a right-sided facial droop. He has right sided weakness. His is at the bedside. MRI of the brain is pending. He is on room air oxygen with O2 saturations 88-99%. He is hypertensive. He is currently on up clevidipine drip at 5 mg per hour requiring titration up to 10 mg per hour. Clonidine patch has been applied. Echocardiogram reveals preserved left ventr icular systolic function with ejection fraction 50-55%. There is a possible PFO versus ASD noted. WBC 9.1. Hemoglobin 15.8. Sodium 139. Potassium 3.9. Creatinine 1.00. Glucose 219. Troponins 0.012, 0.0-1, 0.024 proBNP 171. Cabrera virus by PCR not detected. Review of Systems ROS unobtainable: due to mental status Past Medical History Past Medical History: Diabetes Mellitus, Hyperlipidemia, Hypertension, Sleep Apnea/CPAP/BIPAP Additional Past Medical History / Comment(s): uses CPAP History of Any Multi-Drug Resistant Organisms: None Reported Past Surgical History: Heart Catheterization, Hernia Repair Additional Past Surgical History / Comment(s): COLONOSCOPY Past Anesthesia/Blood Transfusion Reactions: No Reported Reaction Past Psychological History: Depression Smoking Status: Never smoker Past Alcohol Use History: Occasional Past Drug Use History: None Reported - Past Family History Sister(s) Family Medical History: Cancer Additional Family Medical History / Comment(s): 1 SISTER FROM ESOPHAGEL CANCER. 1 SISTER HAD BREAST CANCER Medications and Allergies Home Medications Medication Instructions Recorded Confirmed Type Insulin Detemir [Levemir Flextouch 1 dose SQ HS 03/23/18 08/21/21 History Pen] Insulin Lispro [humaLOG Kwikpen] See Protocol SQ AC-TID 08/21/21 08/21/21 History Allergies Allergy/AdvReac Type Severity Reaction Status Date / Time No Known Allergies Allergy Verified 08/21/21 09:19 Physical Exam Vitals: Vital Signs Temp Pulse Resp BP Pulse Ox 08/21/21 10:00 99 18 174/99 99 08/21/21 09:22 99 18 166/99 99 08/21/21 09:17 181/98 08/21/21 09:00 98 16 181/112 100 08/21/21 08:00 101 H 16 158/98 98 08/21/21 07:00 93 18 161/96 100 08/21/21 06:40 94 18 164/104 99 08/21/21 06:30 90 18 150/88 100 08/21/21 06:00 99.0 F 89 18 171/94 99 08/21/21 05:51 89 18 148/93 98 08/21/21 05:30 94 18 156/94 94 L 08/21/21 05:20 97 18 185/104 96 08/21/21 04:41 90 18 169/102 96 08/21/21 04:32 91 18 181/109 97 08/21/21 04:00 86 18 155/83 98 08/21/21 03:40 89 18 160/92 96 08/21/21 03:30 89 18 147/100 98 08/21/21 03:20 86 18 156/84 98 08/21/21 03:00 87 18 150/91 97 08/21/21 02:45 86 18 165/87 98 08/21/21 02:30 90 18 137/85 98 08/21/21 02:15 92 18 196/118 96 08/21/21 02:00 90 18 164/96 96 08/21/21 01:55 92 18 155/94 95 08/21/21 01:48 91 18 157/100 96 08/21/21 01:45 92 18 153/91 92 L 08/21/21 01:40 96 18 198/117 08/21/21 01:35 92 18 187/122 96 08/21/21 01:30 89 18 196/119 98 08/21/21 01:25 90 18 190/117 96 08/21/21 01:15 93 18 193/118 96 08/21/21 01:00 94 18 197/121 96 08/21/21 00:50 94 20 195/119 96 08/21/21 00:16 89 18 172/102 97 08/21/21 00:05 92 18 220/133 100 08/20/21 23:50 93 18 185/117 98 08/20/21 23:21 96 18 208/133 97 08/20/21 23:07 89 18 226/130 98 08/20/21 22:39 114 H 18 227/145 95 08/20/21 22:18 98.6 F 121 H 18 239/132 97 Intake and Output 08/20/21 08/21/21 08/21/21 22:59 06:59 14:59 Intake Total 49.534 47.933 Output Total 300 Balance 49.534 -252.067 Intake: Intake, IV Titration 49.534 47.933 Amount Clevidipine Butyrate 25 49.534 47.933 mg In Empty Bag 1 bag @ 1 MG/HR 2 mls/hr IV .Q24H [facility] Rx#:[id number] Output: Urine 300 Other: Weight 106.594 kg GENERAL EXAM: Alert, 61-year-old -[place] male patient on room air. HEAD: Normocephalic. EYES: Normal reaction of pupils, equal size. NOSE: Clear with pink turbinates. THROAT: Right-sided facial droop noted. No erythema or exudates. NECK: No masses, no JVD. CHEST: No chest wall deformity. LUNGS: Equal air entry with no crackles, wheeze, rhonchi or dullness. CVS: S1 and S2 normal with no audible murmur, regular rhythm. ABDOMEN: No hepatosplenomegaly, normal bowel sounds, no guarding or rigidity. SPINE: No scoliosis or deformity SKIN: No rashes CENTRAL NERVOUS SYSTEM: Tone is normal in all 4 extremities. EXTREMITIES: Right-sided weakness of the right upper and lower extremities. There is no peripheral edema. No clubbing, no cyanosis. Peripheral pulses are intact. Results - Laboratory Findings CBC and BMP: 08/20/21 22:54 08/20/21 22:54 PT/INR, D-dimer PT 10.5 sec (9.0-12.0) 08/20/21 22:54 INR 1.0 (<1.2) 08/20/21 22:54 Abnormal lab findings: Abnormal Labs 08/20/21 08/20/21 08/20/21 22:36 22:54 22:54 Glucose 219 H POC Glucose (mg/dL) 200 H Plasma Lactic Acid Keyon 2.9 H* Total Protein 8.6 H 08/21/21 00:50 Glucose POC Glucose (mg/dL) 107 H Plasma Lactic Acid [place] Total Protein - Diagnostic Findings Chest x-ray: image reviewed Assessment and Plan Assessment: 1 Acute left thalamus small focal acute hemorrhage with right-sided facial droop, weakness in the right upper and lower extremities consistent with acute hemorrhagic infarct. Echocardiogram reveals possible PFO versus ASD. 2 Acute hypertension requiring clevidipine drip at 10 mg an hour 3 History of hypertension however has been off his medications 4 Diabetes mellitus Plan: The patient was seen and evaluated by Dr. Machado CAT scan, echocardiograms and labs reviewed Titrate the clevidipine drip for better blood pressure control The plan is to still attempt to transfer the patient to a tertiary care center with neurosurgery availability If no accepting beds we will admit to the ICU with a poor prognosis He spoke to the patient's who is at the bedside, she is aware of the plan I, the cosigning physician, performed a history & physical examination of the patient. Lungs sounds are clear. Maintaining good O2 saturations in the 90s on room air. I discussed the assessment and plan of care with my nurse practitioner, Mel Lechuga. I attest to the above consultation as dictated by her. Time with Patient: Greater than 30
--- NOTE | 2021-08-21 13:04 | P.CNNES ---
History of Present Illness Consult date: 08/21/21 Requesting physician: Noe Burns Reason for Consult: Neuro evaluation History of Present Illness: Patient is a 61-year-old right-handed male came to the hospital yesterday at 10:17 PM for acute onset of right-sided weakness and slurred speech and frequent falls. Patient's was also present today. She states that he woke up yesterday at 7:30 AM with numbness of the right leg, complaining of feeling like a cramp of the right leg. He felt he was not feeling well, and attributed it to the sugars. 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 Late evening she went to work. Later there are some called patient's at around 9:30 PM, that patient had suffered from a couple falls and his speech is slurred. She recommended him to take him to the ER. Vital signs unremarkable blood pressure 239/132 pulse rate 121 temperature 98.6. The blood pressure went up to 227/145 and stayed up. Computed tomography scan of the head reported as "negative". Chest x-ray showed no active cardiopulmonary disease. Patient will in the ER was going to the bathroom, when his right leg gave way and he fell. Patient had a repeat computed tomography scan of head performed at 1:17 AM. It was again reported as "negative". Patient was noted to have slurred speech and right hemiparesis. Stroke code was activated. Patient was not a candidate for TPA, as his symptoms have been p resent for > 12 hours. EKG showed sinus tachycardia with premature supraventricular complexes.Stroke neurologist Dr. Joseph reviewed the CT scans, and felt there was a small left thalamic hemorrhage. Patient's blood pressure was very high, which was getting difficult to control. Transferred to higher level of care was considered, but no hospitals accepting the patient. A third computed tomography scan of the head performed at 4:31 AM showed high attenuation in the left thalamus consistent with small focal acute hemorrhage without change. This could be an acute hemorrhagic infarct. Patient had a CTA of head and neck which was reported as "negative". Patient's blood test shows normal CBC PT/PTT, Chem-7. Hepatic panel normal. Troponin negative. Plasma lactate 2.9. Patient's last hemoglobin A1c 9.0 on 07/13/2014. Patient has history of hypertension for 10 years, which is uncontrolled. Patient has stopped taking his blood pressure medications for over a year. He used to take lisinopril. Patient has diabetes for 10 years and he claims the sugars are controlled. He is a never smoker never had a strokes TIA in the past. Review of Systems Patient denies any visual symptoms, no chest pain, abdominal pain nausea vomiting diarrhea. No fever or chills. As per HPI. All other review of systems unremarkable. Patient currently not working since his completely closed during pandemic. Past Medical History Past Medical History: Diabetes Mellitus, Hyperlipidemia, Hypertension, Sleep Apnea/CPAP/BIPAP Additional Past Medical History / Comment(s): uses CPAP History of Any Multi-Drug Resistant Organisms: None Reported Past Surgical History: Heart Catheterization, Hernia Repair Additional Past Surgical History / Comment(s): COLONOSCOPY Past Anesthesia/Blood Transfusion Reactions: No Reported Reaction Past Psychological History: Depression Smoking Status: Never smoker Past Alcohol Use History: Occasional Past Drug Use History: None Reported - Past Family History Sister(s) Family Medical History: Cancer Additional Family Medical History / Comment(s): 1 SISTER FROM ESOPHAGEL CANCER. 1 SISTER HAD BREAST CANCER Medications and Allergies Home Medications Medication Instructions Recorded Confirmed Type Insulin Detemir [Levemir Flextouch 1 dose SQ HS 03/23/18 08/21/21 History Pen] Insulin Lispro [humaLOG Kwikpen] See Protocol SQ AC-TID 08/21/21 08/21/21 History Allergies Allergy/AdvReac Type Severity Reaction Status Date / Time No Known Allergies Allergy Verified 08/21/21 09:19 Physical Examination - Vital Signs Vital Signs: Vital Signs Temp Pulse Resp BP Pulse Ox 08/21/21 09:22 99 18 166/99 99 08/21/21 09:17 181/98 08/21/21 09:00 98 16 181/112 100 08/21/21 08:00 101 H 16 158/98 98 08/21/21 07:00 93 18 161/96 100 08/21/21 06:40 94 18 164/104 99 08/21/21 06:30 90 18 150/88 100 08/21/21 06:00 99.0 F 89 18 171/94 99 08/21/21 05:51 89 18 148/93 98 08/21/21 05:30 94 18 156/94 94 L 08/21/21 05:20 97 18 185/104 96 08/21/21 04:41 90 18 169/102 96 08/21/21 04:32 91 18 181/109 97 08/21/21 04:00 86 18 155/83 98 08/21/21 03:40 89 18 160/92 96 08/21/21 03:30 89 18 147/100 98 08/21/21 03:20 86 18 156/84 98 08/21/21 03:00 87 18 150/91 97 08/21/21 02:45 86 18 165/87 98 08/21/21 02:30 90 18 137/85 98 08/21/21 02:15 92 18 196/118 96 08/21/21 02:00 90 18 164/96 96 08/21/21 01:55 92 18 155/94 95 08/21/21 01:48 91 18 157/100 96 08/21/21 01:45 92 18 153/91 92 L 08/21/21 01:40 96 18 198/117 08/21/21 01:35 92 18 187/122 96 08/21/21 01:30 89 18 196/119 98 08/21/21 01:25 90 18 190/117 96 08/21/21 01:15 93 18 193/118 96 08/21/21 01:00 94 18 197/121 96 08/21/21 00:50 94 20 195/119 96 08/21/21 00:16 89 18 172/102 97 08/21/21 00:05 92 18 220/133 100 08/20/21 23:50 93 18 185/117 98 08/20/21 23:21 96 18 208/133 97 08/20/21 23:07 89 18 226/130 98 08/20/21 22:39 114 H 18 227/145 95 08/20/21 22:18 98.6 F 121 H 18 239/132 97 Intake and Output 08/20/21 08/21/21 08/21/21 22:59 06:59 14:59 Intake Total 49.534 34.800 Output Total 300 Balance 49.534 -265.200 Intake: Intake, IV Titration 49.534 34.800 Amount Clevidipine Butyrate 25 49.534 34.800 mg In Empty Bag 1 bag @ 1 MG/HR 2 mls/hr IV .Q24H [facility] Rx#:[id number] Output: Urine 300 Other: Weight 106.594 kg Patient is a middle aged Afro-[place] male, who is in no respiratory distress. Patient does appear stressed, struggling to get comfortable, trying to move right side. Patient is alert awake oriented to time place and person. Speech is moderately dysarthric, but no aphasia. Patient can name and repeat very well. Attention, concentration and fund of knowledge is adequate, however difficult to assess because of significant dysarthria. Patient's comprehension is perfect. On cranial examination, pupils are round and reacting to light, visual wu are full on confrontation, with no neglect on double simultaneous stimulation. His extraocular muscles are intact with no nystagmus. Patient has very severe right facial weakness, which is somewhat peripheral type. His tongue protrudes to the right side. Palatal elevation and sensation normal, hearing normal, facial sensation normal. Shoulder shrug severely decreased the right, normal left. On muscle strength testing, the strength is normal in left arm and left leg. Patient has very minimal movement of the right upper extremity at the shoulder. He has 1-2 strength at the cfa. In the right lower extremity hip flexion is about 4+ whereas ankle dorsiflexion is 1. Deep tendon reflexes are diminished in general bilaterally and plantars is flat on the right, down on the left side. Sensory to touch and temperature is equal on both sides with no neglect on double simultaneous stimulation. Cerebellar function showed no ataxia for [id number] testing on the left. Papa fontenot not able to perform testing on the right. Tone is slightly increased on the right and bulk of muscles normal. Gait not checked. On general examination, there is no carotid bruit or murmur, S1-S2 audible. Abdomen is soft nontender, bowel sounds present, no organomegaly. Chest is clear to auscultation. Peripheral pulses are present. No edema. Results - Laboratory Findings CBC and BMP: 08/20/21 22:54 08/20/21 22:54 Abnormal Lab Findings: Abnormal Labs 08/20/21 08/20/21 08/20/21 22:36 22:54 22:54 Glucose 219 H POC Glucose (mg/dL) 200 H Plasma Lactic Acid Keyon 2.9 H* Total Protein 8.6 H 08/21/21 00:50 Glucose POC Glucose (mg/dL) 107 H Plasma Lactic Acid [place] Total Protein Assessment and Plan Assessment: * Acute left thalamic hemorrhage, likely hypertensive * Acute ischemic stroke left basal ganglia, measuring 2.4 x 1.1 cm, possible embolic, less likely from ?small vessel disease. * 2-D echo reported small PFO versus ASD. * Hypertension, uncontrolled * Diabetes * Medication noncompliance Plan: * Patient has presented with an acute small left thalamic hemorrhage, likely hypertensive. However MRI of the brain also revealed evidence of an acute ischemic infarction involving the left basal ganglia, possibly embolic in nature. Official MRI report still pending. Hold off on antiplatelet medication because of evidence of thalamic hemorrhage. * Blood pressure needs to be controlled to less than 160 systolic. Avoid hypotension. * CTA of head and neck reported no acute process. No stenosis reported. * 2-D echo revealed severe concentric LVH. EF is low-normal between 50-55%. Right ventricle is normal in size. Left atrial size is normal. Aneurysmal interatrial septum. Possible PFO versus ASD. No aortic stenosis. We will get cardiology consult. * Hemoglobin A1c, lipid panel. * Patient accepted to [facility] for neurosurgical evaluation, but awaiting bed availability. * Telemetry monitoring rule out paroxysmal atrial fibrillation. * Patient on Protonix for gastric ulcer prophylaxis. * DVT prophylaxis, may use SCDs. * Discussed with patient's in detail. Thank you for the consult. Time with Patient: Greater than 30
[2021-08-21 13:50] LABS: Amphetamine Screen,Urine Not Detected (NotDetected); Barbiturate Screen,Urine Not Detected (NotDetected); Benzodiazepines Screen,Urine Detected (NotDetected); Cocaine Screen,Urine Not Detected (NotDetected); Methadone Screen, Urine Not Detected (NotDetected); Opiate Screen,Urine Detected (NotDetected); Oxycodone Screen, Urine Not Detected (NotDetected); Phencyclidine Screen,Urine Not Detected (NotDetected); Tricyclic Antidepressant,Urine Not Detected (NotDetected); Urn Cannabinoid Scrn Not Detected (NotDetected)
[2021-08-21 15:42] LABS: Glucose,Whole Blood 199 mg/dL (75-99)
[2021-08-21 17:28] VITALS: BP 161/98; PULSE 94; TEMP 98.2
--- NOTE | 2021-08-21 18:06 | MR ---
EXAMINATION TYPE: MR brain wo/w con DATE OF EXAM: 08/21/2021 COMPARISON: CT brain 08/21/2021 HISTORY: Bleed, cva, right side weakness CONTRAST: Performed utilizing 11 mL intravenous Gadavist gadolinium contrast. TECHNIQUE: Multiplanar, multiecho imaging on a 3.0 Carrie magnet is performed through the brain. Stud y is performed within 24 hours of arrival to the hospital. The craniovertebral junction is normal. The pituitary is normal. Diffusion-weighted imaging is performed. There is hyperintensity within the left thalamus compatible with acute ischemic change. This extends adjacent to the left lateral ventricle. Within the left thalamus is a small focal area of low signal on both T1 and T2-weighted sequences com patible with early subacute hemorrhage. This area corresponds to the CT examination. Periventricular white matter hyperintensities present on the inversion recovery weighted sequences ar e present bilaterally. Subcortical white matter change is in the left frontal lobe. Findings are nons pecific but can be related to chronic white matter ischemic type changes. The acute area of ischemic changes also identified is an ill-defined hyperintensity adjacent to the l eft lateral ventricle. Ventricles and sulci are prominent for the patient age. IMPRESSIONS: 1. Small hypointense area within the left thalamus on T1 and T2-weighted sequences can be compatible with the acute hemorrhage identified by CT examination. This appears similar to the comparison. 2. There is extension from the hemorrhage within the deep white matter adjacent to the left lateral v entricle compatible with acute ischemic change. 3. There are additional chronic appearing periventricular and subcortical white matter changes discus sed above.
[2021-08-21] MEDS ORDERED: ATORVASTATIN 80 MG TAB PO SCH (21:00)
[2021-08-22] MEDS ORDERED: ASPIRIN 325 MG TAB PO SCH (09:00)
== END 2021-08-21 17:45 | disposition other institution (70) | DRG 65 ==
LOC: EC 22:17 → 2SICU 08-21 02:22
PROVIDERS: ADMIT Family Medicine; ATTEND Family Medicine
DX: I61.8 Other nontraumatic intracerebral hemorrhage (principal); G81.91 Hemiplegia, unspecified affecting right dominant side; I16.1 Hypertensive emergency; R47.01 Aphasia; Q21.1 Atrial septal defect; R41.0 Disorientation, unspecified; R47.02 Dysphasia; R06.02 Shortness of breath; Z20.822 Contact with and (suspected) exposure to COVID-19; E11.65 Type 2 diabetes mellitus with hyperglycemia; E78.5 Hyperlipidemia, unspecified; I08.1 Rheumatic disorders of both mitral and tricuspid valves; E86.0 Dehydration; I10 Essential (primary) hypertension; I49.1 Atrial premature depolarization; R29.6 Repeated falls; R29.700 NIHSS score 0; R29.810 Facial weakness; W19.XXXA Unspecified fall, initial encounter; Z80.3 Family history of malignant neoplasm of breast; Z79.4 Long term (current) use of insulin; Z91.14 Patient's other noncompliance with medication regimen; Z91.81 History of falling; Z87.19 Personal history of other diseases of the digestive system; Z79.899 Other long term (current) drug therapy
CPT/HCPCS: 36415; 70450; 70496; 70498; 70553; 71045; 80053; 80306; 83036; 83605; 83735; 83880; 84100; 84484; 85025; 85610; 85730; 87635; 93005; 93306; 96361; 96365; 96366; 96375; 96376; 99291

== ENCOUNTER 2021-12-20 14:42 | Emergency (ER) | payer MEDICAID ==
[2021-12-20 14:47] VITALS: TEMP 98.1
--- NOTE | 2021-12-20 15:17 | CT ---
EXAMINATION TYPE: CT brain wo con DATE OF EXAM: 12/20/2021 HISTORY: headache, visual changes. hx of cva [address] DLP: 1126.4 mGycm. Automated Exposure Control for Dose Reduction was Utilized. TECHNIQUE: CT scan of the head is performed without contrast. COMPARISON: CT and MRI brain August 21, 2021. FINDINGS: There is no acute intracranial hemorrhage or midline shift identified. Interval expected evolution of now chronic left-sided infarct in the left sprague radiata extending into the internal ca psule. Mild low attenuation in the deep and periventricular white matter consistent with chronic smal l vessel ischemic change redemonstrated appreciated better on recent MRI. Suspected cerumen in the bi lateral external auditory canals. The globes are intact and the visualized sinuses are clear. IMPRESSION: Evolved left-sided infarct from most recent studies. Background mild to borderline moder ate chronic small vessel ischemic change redemonstrated. No acute intracranial hemorrhage or midline shift is seen.
[2021-12-20] MEDS ORDERED: diphenhydrAMINE 50 MG/ML 1 ML VIAL IVP STA (16:19)
[2021-12-20] MEDS ORDERED: METOCLOPRAMIDE 5 MG/ML 2 ML VIAL IVP STA (16:19)
[2021-12-20] MEDS ORDERED: SODIUM CHLORIDE 0.9% 1,000 ML IV STA (16:19)
[2021-12-20] MEDS ORDERED: MAGNESIUM SULFATE-D5W PMX 1 GM in DEXTROSE/WATER 1 100ML.BAG IVPB ONE (16:20)
[2021-12-20] MEDS ORDERED: DEXAMETHASONE SOD PHOSPHATE 10 MG/ML 1 ML VIAL IVP STA (16:20)
[2021-12-20 17:06] LABS: Basophils # (A) 0.1 k/uL (0-0.2); Basophils % (A) 1 %; Eosinophils # (A) 0.3 k/uL (0-0.7); Eosinophils % (A) 4 %; HGB 11.7 gm/dL (13.0-17.5); Lymphocytes # (A) 1.5 k/uL (1.0-4.8); Lymphocytes % (A) 20 %; MCH 29.4 pg (25.0-35.0); MCHC 32.6 g/dL (31.0-37.0); MCV 90.2 fL (80.0-100.0); Mean Platelet Volume 8.4; Monocytes # (A) 0.3 k/uL (0-1.0); Monocytes % (A) 4 %; Neutrophils # (A) 5.1 k/uL (1.3-7.7); Neutrophils % (A) 70 %; Platelet Count 264 k/uL (150-450); RBC 3.99 m/uL (4.30-5.90); RDW 13.6 % (11.5-15.5); WBC 7.3 k/uL (3.8-10.6)
[2021-12-20 17:15] LABS: Albumin 4.3 g/dL (3.5-5.0); Calcium 9.7 mg/dL (8.4-10.2); Total Bilirubin 0.9 mg/dL (0.2-1.3); Total Protein 7.8 g/dL (6.3-8.2)
[2021-12-20 17:18] LABS: Potassium 3.9 mmol/L (3.5-5.1)
[2021-12-20 17:22] LABS: Prothrombin Time 10.6 sec (9.0-12.0)
[2021-12-20 18:46] VITALS: RESP 17
--- NOTE | 2021-12-20 19:00 | CT ---
EXAMINATION TYPE: CT angio head neck DATE OF EXAM: 12/20/2021 COMPARISON: 08/21/2021 HISTORY: MIGUEL, blurry vision, dizziness, stroke last year. CT DLP: 542.7 mGycm Automated exposure control for dose reduction was used. CONTRAST: Performed with IV Contrast, patient injected with 65ml mL of Isovue 370. Images obtained from the aortic arch to the vertex of the brain without IV contrast. There are Three- D postprocessed images. There is normal branching pattern of the great vessels on the aortic arch. There is arterial flow in both subclavian arteries. There is arterial flow in the common internal and external carotid arteries bilaterally. There is arterial flow in both vertebral arteries. There is wide patency of the carotid artery bifurcations. No evidence of stenosis. No evidence of carotid or vertebral artery aneurysm or dissection. There is arterial flow in the vertebrobasilar artery system. There is arterial flow in the anterior middle and posterior cerebral arteries bilaterally. No mass ef fect. No evidence of intracranial aneurysm or neovascularity. No evidence of hemodynamic stenosis. Th ere is normal enhancement of the venous sinuses. There is an irregular 2 x 1 cm hypodensity left post erior internal capsule consistent with an old lacunar infarct. IMPRESSION: Old lacunar infarct left posterior internal capsule is a change compared to old CT scan. Negative CT angiogram of the neck. Negative CT angiogram of the brain.
--- NOTE | 2021-12-20 19:53 | ED ---
Headache HPI - General Chief Complaint: Headache Stated Complaint: Headaches,L eye vision issues Time Seen by Provider: 12/20/21 14:45 Mode of arrival: wheelchair Limitations: no limitations - History of Present Illness Initial Comments: 61-year-old male with past medical history of hypertension, diabetes, stroke secondary to uncontrolled hypertension presents to the emergency department with headache. Patient has awoken daily with a headache in the morning since Thursday. He has been asking his are Motrin which his states is uncommon for him. He normally does not suffer from headaches. He states that they're relatively minor, 2 out of 10 currently. It is not the worse headache of his life. No associated visual changes or speech difficulties. feels as if his weakness on his right side is worse however the patient does not feel that this is true. There has been no reported confusion from the patient. No fevers. No recent head trauma. They saw their primary care physician today in office who recommended that he come into the emergency room for CT. Outpatient CT unable to be performed at this time. No other alleviating, precipitating or modifying factors - Related Data Home Medications Medication Instructions Recorded Confirmed Insulin Lispro [humaLOG Kwikpen] See Protocol SQ TID-W/MEALS 08/21/21 12/20/21 Aspirin EC [Ecotrin Low Dose] 81 mg PO DAILY 12/20/21 12/20/21 Atorvastatin [Lipitor] 80 mg PO DAILY 12/20/21 12/20/21 Baclofen 5 mg PO BID 12/20/21 12/20/21 Docusate [Colace] 200 mg PO BID 12/20/21 12/20/21 Dronabinol [Marinol] 2.5 mg PO BID 12/20/21 12/20/21 Gabapentin [Neurontin] 100 mg PO TID 12/20/21 12/20/21 Mirtazapine [Remeron] 15 mg PO HS 12/20/21 12/20/21 NIFEdipine [NIFEdipine ER 60 mg PO DAILY 12/20/21 12/20/21 (Osmotic)] Pantoprazole [Protonix] 40 mg PO DAILY 12/20/21 12/20/21 Sennosides [Senna] 17.2 mg PO HS PRN 12/20/21 12/20/21 hydroCHLOROthiazide [Hydrodiuril] 25 mg PO DAILY 12/20/21 12/20/21 lisinopriL [Zestril] 20 mg PO DAILY 12/20/21 12/20/21 metFORMIN HCL 500 mg PO BID 12/20/21 12/20/21 ondansetron HCL [Zofran] 8 mg PO BID PRN 12/20/21 12/20/21 Allergies Allergy/AdvReac Type Severity Reaction Status Date / Time No Known Allergies Allergy Verified 12/20/21 18:00 Review of Systems ROS Statement: Those systems with pertinent positive or pertinent negative responses have been documented in the HPI. ROS Other: All systems not noted in ROS Statement are negative. Past Medical History Past Medical History: Diabetes Mellitus, Hyperlipidemia, Hypertension, Sleep Apnea/CPAP/BIPAP Additional Past Medical History / Comment(s): uses CPAP History of Any Multi-Drug Resistant Organisms: None Reported Past Surgical History: Heart Catheterization, Hernia Repair Additional Past Surgical History / Comment(s): COLONOSCOPY Past Anesthesia/Blood Transfusion Reactions: No Reported Reaction Past Psychological History: Depression Smoking Status: Never smoker Past Alcohol Use History: Occasional Past Drug Use History: None Reported - Past Family History Sister(s) Family Medical History: Cancer Additional Family Medical History / Comment(s): 1 SISTER FROM ESOPHAGEL CANCER. 1 SISTER HAD BREAST CANCER General Exam Limitations: no limitations General appearance: alert, in no apparent distress Head exam: Present: atraumatic, normocephalic, other (right facial droop) Eye exam: Present: normal appearance, PERRL, EOMI. Absent: scleral icterus, conjunctival injection, periorbital swelling ENT exam: Present: normal exam, mucous membranes moist Neck exam: Present: normal inspection. Absent: tenderness, meningismus, lymphadenopathy Respiratory exam: Present: normal lung sounds bilaterally. Absent: respiratory distress, wheezes, rales, rhonchi, stridor Cardiovascular Exam: Present: regular rate, normal rhythm, normal heart sounds. Absent: systolic murmur, diastolic murmur, rubs, gallop, clicks GI/Abdominal exam: Present: soft, normal bowel sounds. Absent: distended, tenderness, guarding, rebound, rigid Extremities exam: Present: normal capillary refill, other (right upper and right lower chronic weakness). Absent: tenderness, pedal edema, joint swelling, calf tenderness Back exam: Present: normal inspection Neurological exam: Present: alert, oriented X3, CN II-XII intact Psychiatric exam: Present: normal affect, normal mood Skin exam: Present: warm, dry, intact, normal color. Absent: rash Course Vital Signs 12/20/21 12/20/21 12/20/21 14:45 18:45 20:19 Temperature 98.1 F Pulse Rate 83 65 77 Respiratory 18 17 17 Rate Blood Pressure 121/81 148/102 140/86 O2 Sat by Pulse 98 98 96 Oximetry Medical Decision Making - Medical Decision Making Upon arrival patient is placed into room 10. A thorough history and physical exam is performed. IV access established laboratory studies are conducted. Laboratory studies are reviewed and are within normal limits. CT of the brain demonstrates of altered left-sided infarct from most recent study. No acute intracranial process. CT angiography demonstrates an old lacunar infarcts of the left posterior internal capsule. Negative CT angiogram of the neck. Negative CT angiogram of the brain. The patient is reevaluated after medication administration reports that his headache is completely gone at this time. She denies any new weakness. I did discuss diagnosis, differential and treatment options. Patient prefers to go home at this time. As he is stating that his weakness is not worse, I feel that this is appropriate. He is instructed to follow up in 2-4 days with his primary care doctor and return for any new worsening symptoms. Blood pressure is increasing during his hospital stay and therefore he is administered his home blood pressure medications. Patient discharged home in stable condition - Lab Data Result diagrams: 12/20/21 17:00 12/20/21 17:00 Lab Results 12/20/21 12/20/21 12/20/21 Range/Units 17:00 17:00 17:00 WBC 7.3 (3.8-10.6) k/uL RBC 3.99 L (4.30-5.90) m/uL Hgb 11.7 L (13.0-17.5) gm/dL Hct 36.0 L (39.0-53.0) % MCV 90.2 (80.0-100.0) fL MCH 29.4 (25.0-35.0) pg MCHC 32.6 (31.0-37.0) g/dL RDW 13.6 (11.5-15.5) % Plt Count 264 (150-450) k/uL MPV 8.4 Neutrophils % 70 % Lymphocytes % 20 % Monocytes % 4 % Eosinophils % 4 % Basophils % 1 % Neutrophils # 5.1 (1.3-7.7) k/uL Lymphocytes # 1.5 (1.0-4.8) k/uL Monocytes # 0.3 (0-1.0) k/uL Eosinophils # 0.3 (0-0.7) k/uL Basophils # 0.1 (0-0.2) k/uL PT 10.6 (9.0-12.0) sec INR 1.0 (<1.2) APTT 23.0 (22.0-30.0) sec Sodium 138 (137-145) mmol/L Potassium 3.9 (3.5-5.1) mmol/L Chloride 103 (98-107) mmol/L Carbon Dioxide 26 (22-30) mmol/L Anion Gap 9 mmol/L BUN 22 H (9-20) mg/dL Creatinine 1.29 H (0.66-1.25) mg/dL Est GFR (CKD-EPI)AfAm 70 (>60 ml/min/1.73 sqM) Est GFR (CKD-EPI)NonAf 60 (>60 ml/min/1.73 sqM) Glucose 107 H (74-99) mg/dL Calcium 9.7 (8.4-10.2) mg/dL Total Bilirubin 0.9 (0.2-1.3) mg/dL AST 34 (17-59) U/L ALT 15 (4-49) U/L Alkaline Phosphatase 61 (38-126) U/L Troponin I (0.000-0.034) ng/mL Total Protein 7.8 (6.3-8.2) g/dL Albumin 4.3 (3.5-5.0) g/dL 12/20/21 Range/Units 17:00 WBC (3.8-10.6) k/uL RBC (4.30-5.90) m/uL Hgb (13.0-17.5) gm/dL Hct (39.0-53.0) % MCV (80.0-100.0) fL MCH (25.0-35.0) pg MCHC (31.0-37.0) g/dL RDW (11.5-15.5) % Plt Count (150-450) k/uL MPV Neutrophils % % Lymphocytes % % Monocytes % % Eosinophils % % Basophils % % Neutrophils # (1.3-7.7) k/uL Lymphocytes # (1.0-4.8) k/uL Monocytes # (0-1.0) k/uL Eosinophils # (0-0.7) k/uL Basophils # (0-0.2) k/uL PT (9.0-12.0) sec INR (<1.2) APTT (22.0-30.0) sec Sodium (137-145) mmol/L Potassium (3.5-5.1) mmol/L Chloride (98-107) mmol/L Carbon Dioxide (22-30) mmol/L Anion Gap mmol/L BUN (9-20) mg/dL Creatinine (0.66-1.25) mg/dL Est GFR (CKD-EPI)AfAm (>60 ml/min/1.73 sqM) Est GFR (CKD-EPI)NonAf (>60 ml/min/1.73 sqM) Glucose (74-99) mg/dL Calcium (8.4-10.2) mg/dL Total Bilirubin (0.2-1.3) mg/dL AST (17-59) U/L ALT (4-49) U/L Alkaline Phosphatase (38-126) U/L Troponin I <0.012 (0.000-0.034) ng/mL Total Protein (6.3-8.2) g/dL Albumin (3.5-5.0) g/dL - EKG Data EKG Comments: EKG demonstrates sinus rhythm with a rate of 66. NC interval 182. QRS 119. QTC of 460. No acute ST segment elevations or depressions. Disposition Clinical Impression: Cephalgia, History of CVA (cerebrovascular accident) Disposition: HOME SELF-CARE Condition: Stable Instructions (If sedation given, give patient instructions): Acute Headache (ED) Additional Instructions: Please follow up with your PCP in 2-4 days. Return to the ED for any new or worsening symptoms. Is patient prescribed a controlled substance at d/c from ED?: No Referrals: Андрей Perez MD [Primary Care Provider] - 1-2 days Time of Disposition: 19:52
[2021-12-20] MEDS ORDERED: lisinopriL 20 MG TAB PO SCH (20:00)
[2021-12-20] MEDS ORDERED: hydroCHLOROthiazide 25 MG TAB PO SCH (20:00)
[2021-12-20 20:20] VITALS: BP 140/86; PULSE 77
== END 2021-12-20 20:50 | disposition home or self-care (01) ==
LOC: EC 14:42
DX: R51.9 Headache, unspecified (principal); Z86.73 Personal history of transient ischemic attack (TIA), and cerebral infarction without residual deficits; I10 Essential (primary) hypertension; E11.9 Type 2 diabetes mellitus without complications
CPT/HCPCS: 99285; 96365; 96375; 96361; 36415; 93005; 80053; 84484; 85025; 85610; 85730; 70496; 70450; 70498; J1200; J1100; J2765; J3475; Q9967

== ENCOUNTER → 2022-01-25 | Outpatient (CLI) | payer MEDICAID ==
[2022-01-25 16:32] LABS: African American GFR (CKD) 76.3 (60.0-200.0); Blood Urea Nitrogen 27.8 mg/dL (9.0-27.0); Non-African American GFR(CKD) 65.8 (60.0-200.0)
== END | disposition home or self-care (01) ==
LOC: LABWHC1 01-24 10:12
PROVIDERS: ATTEND Ophthalmology
DX: I63.9 Cerebral infarction, unspecified (principal)
CPT/HCPCS: 36415; 82565; 84520

== ENCOUNTER 2022-02-21 06:17 | Day surgery (SDC) | payer MEDICAID ==
[2022-02-19 12:19] VITALS: BMI 23.7
[~2022-02-21 06:17] MED LIST changes: -HEPARIN SODIUM,PORCINE 5,000 UNIT/ML 1 ML VIAL SQ ONE; +LACTATED RINGERS 1,000 ML IV SCH; -ceFAZolin IN SWFI 2 GM/20 ML SYRINGE IVP ONE
[2022-02-21 06:56] LABS: Glucose,Whole Blood 148 mg/dL (70-110)
[2022-02-21 07:00] VITALS: TEMP 97.9
[2022-02-21] MEDS ORDERED: LIDOCAINE 2% INJ 20 MG/ML (2 ML VIAL) ONE (07:10)
[2022-02-21] MEDS ORDERED: PROPOFOL 10 MG/ML 20 ML VIAL IV ONE (07:10)
--- NOTE | 2022-02-21 07:33 | P.PCN ---
Date of Procedure: 02/21/22 Procedure(s) Performed: Brief history: Patient is a pleasant 62-year-old -[place] male scheduled for an elective upper endoscopy as well as colonoscopy as a part of evaluation of progressive weight loss of 20 pounds, abdominal pain and intermittent rectal bleeding Procedure performed: Esophagogastroduodenoscopy with biopsy Colonoscopy with biopsy Preoperative diagnosis: Abdominal pain/progressive weight loss Intermittent rectal bleeding Anesthesia: [facility] [place] Procedure: After informed consent was obtained from the patient was brought into the endoscopy unit and IV sedation was administered by anesthesia under continuous monitoring. Initially upper endoscopy was done. The Olympus GF 160 video endoscope was inserted inserted into the mouth and esophagus intubated without any difficulty and was gradually advanced into the stomach and duodenum and carefully examined. The bulb and second part of the duodenum appeared normal. Biopsies were done from the duodenum to rule out celiac disease. The scope was then withdrawn into the stomach adequately insufflated with air and upon careful examination the antrum had mild gastritis and biopsies were done from this area. The body, cardia and fundus appeared normal. The scope was then withdrawn into the esophagus. The GE junction was located at 40 cm to the incisors. It appeared regular with no erythema erosions or ulcerations. Rest of the esophagus appeared normal. Patient tolerated the procedure well. At this time the patient continued to remain sedation. Initial digital rectal examination was normal. Olympus CF 160 video colonoscope was then inserted into the rectum and gradually advanced to the cecum without any difficulty. Careful examination was performed as the scope was gradually being withdrawn. The prep was excellent. The cecum, normal. Ascending colon there was a 3 mm polyp that was removed by cold biopsy. Rest of the ascending colon, transverse colon, descending colon, sigmoid colon and rectum appeared normal. Scattered sigmoid diverticulosis. Retroflexion was performed in the rectum and small internal were noted. Patient tolerated the procedure well. Impression: 1. Upper endoscopy revealed mild antral gastritis but no evidence of esophagitis or peptic ulcer disease 2. Colonoscopy revealed a 3 mm ascending colon polyp status post cold biopsy and scattered sigmoid diverticulosis as well as small internal hemorrhoids Recommendations: Findings of this examination were discussed with the patient as well as his family. He was advised to follow with the biopsy results. If the biopsy results adenoma he can have a repeat colonoscopy in 5 years.
[2022-02-21 07:52] LABS: Glucose,Whole Blood 124 mg/dL (70-110)
[2022-02-21 07:53] VITALS: RESP 17
[2022-02-21 08:22] VITALS: BP 132/92; PULSE 74
== END 2022-02-21 09:05 | disposition home or self-care (01) ==
LOC: ORWHC2ENDO 06:17
PROVIDERS: ATTEND Internal Medicine Gastroenterology
DX: D12.2 Benign neoplasm of ascending colon (principal); K29.50 Unspecified chronic gastritis without bleeding; K57.30 Diverticulosis of large intestine without perforation or abscess without bleeding; K64.8 Other hemorrhoids; I10 Essential (primary) hypertension; E11.69 Type 2 diabetes mellitus with other specified complication; E78.5 Hyperlipidemia, unspecified; G47.33 Obstructive sleep apnea (adult) (pediatric); I69.351 Hemiplegia and hemiparesis following cerebral infarction affecting right dominant side; Z79.899 Other long term (current) drug therapy; Z79.4 Long term (current) use of insulin; Z80.3 Family history of malignant neoplasm of breast; Z80.0 Family history of malignant neoplasm of digestive organs
CPT/HCPCS: 88305; 45380; 43239; J2704; J2001

== ENCOUNTER → 2023-07-24 | Outpatient (CLI) | payer MEDICAID ==
[2023-07-25 02:08] LABS: Basophils # (A) 0.04 X 10*3/uL (0.00-0.10); Basophils % (A) 0.8 %; Eosinophils # (A) 0.15 X 10*3/uL (0.04-0.35); Eosinophils % (A) 2.9 %; HCT 38.2 % (39.6-50.0); HGB 12.4 g/dL (13.0-17.0); MCH 29.2 pg (27.0-32.0); MCHC 32.5 g/dL (32.0-37.0); MCV 89.9 FL (80.0-97.0); Mean Platelet Volume 11.5 FL (9.5-12.2); Monocytes % (A) 5.8 %; NRBC Per 100 WBC 0 X 10*3/uL (0.00-0.01); Neutrophils # (A) 3.17 X 10*3/uL (1.80-7.70); Neutrophils % (A) 61.1 %; Platelet Count 252 X 10*3/uL (140-440); RBC 4.25 X 10*6/uL (4.40-5.60); RDW 13.8 % (11.5-14.5); WBC 5.18 X 10*3/uL (4.50-10.00)
[2023-07-25 03:14] LABS: ALT 16 U/L (10-49); AST 16 U/L (14-35); Albumin 4.5 g/dL (3.8-4.9); Albumin/Globulin Ratio 1.55 Ratio (1.60-3.17); Alkaline Phosphatase 79 U/L (41-126); BUN/Creat Ratio 17.18 Ratio (12.00-20.00); Blood Urea Nitrogen 18.9 mg/dL (9.0-27.0); Calcium 10.1 mg/dL (8.7-10.3); Carbon Dioxide 28.8 mmol/L (21.6-31.8); Chloride 103 mmol/L (96-109); Chol/HDL Ratio 2.22 Ratio; Globulin 2.9 g/dL (1.6-3.3); Glucose 93 mg/dL (70-110); LDL Cholesterol,Calculated 49.2 mg/dL (0.0-131.0); Potassium 3.6 mmol/L (3.5-5.5); Prostate Specific Antigen 1.42 ng/mL (0.000-4.500); Sodium 143 mmol/L (135-145); T4, Free (Free Thyroxine) 1.51 ng/dL (0.80-1.80); Total Bilirubin 0.3 mg/dL (0.3-1.2); Total Protein 7.4 g/dL (6.2-8.2)
== END | disposition home or self-care (01) ==
LOC: LABWHC1 13:27
DX: Z00.00 Encounter for general adult medical examination without abnormal findings (principal)
CPT/HCPCS: 36415; 80053; 80061; 82043; 82306; 82570; 83036; 84153; 84156; 84439; 84443; 85025

== ENCOUNTER 2023-10-01 00:51 | Emergency (ER) | payer MEDICAID ==
[2023-10-01 01:00] VITALS: TEMP 98.1
[2023-10-01 01:44] LABS: Glucose,Whole Blood 222 mg/dL (70-110)
[2023-10-01 02:10] LABS: Basophils % (A) 0 %; Eosinophils # (A) 0.1 k/uL (0-0.7); Eosinophils % (A) 1 %; HCT 28.7 % (39.0-53.0); HGB 9.7 gm/dL (13.0-17.5); Lymphocytes # (A) 0.8 k/uL (1.0-4.8); Lymphocytes % (A) 6 %; MCH 30.3 pg (25.0-35.0); MCHC 33.8 g/dL (31.0-37.0); MCV 89.7 fL (80.0-100.0); Monocytes # (A) 0.6 k/uL (0-1.0); Monocytes % (A) 5 %; Neutrophils # (A) 11.2 k/uL (1.3-7.7); Neutrophils % (A) 88 %; Platelet Count 273 k/uL (150-450); RDW 13.2 % (11.5-15.5); WBC 12.8 k/uL (3.8-10.6)
[2023-10-01 02:11] LABS: INR 1.1 (<1.2); Partial Thromboplastin Time 22.5 sec (22.0-30.0); Prothrombin Time 11.8 sec (10.0-12.5)
[2023-10-01 02:26] LABS: ALT 28 U/L (4-49); AST 19 U/L (17-59); African American GFR (CKD) 84 (>60 ml/min/1.73 sqM); Alkaline Phosphatase 57 U/L (38-126); Anion Gap 5 mmol/L; Blood Urea Nitrogen 42 mg/dL (9-20); Calcium 8.6 mg/dL (8.4-10.2); Carbon Dioxide 23 mmol/L (22-30); Chloride 107 mmol/L (98-107); Glucose 210 mg/dL (74-99); Non-African American GFR(CKD) 73 (>60 ml/min/1.73 sqM); Potassium 4.3 mmol/L (3.5-5.1); Sodium 135 mmol/L (137-145); Total Bilirubin 0.2 mg/dL (0.2-1.3); Total Protein 5.6 g/dL (6.3-8.2)
[2023-10-01 02:58] VITALS: RESP 12
--- NOTE | 2023-10-01 03:19 | ED ---
General Adult HPI - General Chief complaint: GI Bleed Stated complaint: BLOOD IN URINE Time Seen by Provider: 10/01/23 01:06 Source: patient Mode of arrival: wheelchair Limitations: no limitations - History of Present Illness Initial comments: 63-year-old male presenting to the ED with a chief complaint of GI bleeding. Patient notes history and 2021 of GI bleeding and had a colonoscopy performed which showed polyps. Has been following up with Dr. Costa of GI and has been stable since with no episodes. Tonight, had sensation of abdominal cramping and felt the urge to use the restroom. When he did, tried to have a bowel movement and noticed that he filled the toilet with blood. States pain currently at a 4 out of 10 in severity. Prior to evaluation, patient was reported to have a syncopal episode lasting approximately 2 minutes. At this time patient is back to his normal self. Denies chest pain shortness of breath. No other complaints at this time. - Related Data Home Medications Medication Instructions Recorded Confirmed Insulin Lispro [humaLOG Kwikpen] See Protocol SQ TID-W/MEALS 08/21/21 02/21/22 Aspirin EC [Ecotrin Low Dose] 81 mg PO DAILY 12/20/21 02/21/22 Atorvastatin [Lipitor] 80 mg PO DAILY 12/20/21 02/21/22 Baclofen 5 mg PO BID 12/20/21 02/21/22 Docusate [Colace] 200 mg PO BID 12/20/21 02/21/22 Gabapentin [Neurontin] 100 mg PO TID 12/20/21 02/21/22 Mirtazapine [Remeron] 15 mg PO HS 12/20/21 02/21/22 NIFEdipine [NIFEdipine ER 60 mg PO DAILY 12/20/21 02/21/22 (Osmotic)] Pantoprazole [Protonix] 40 mg PO DAILY 12/20/21 02/21/22 dronabinoL [Marinol] 5 mg PO BID 12/20/21 02/21/22 hydroCHLOROthiazide [Hydrodiuril] 25 mg PO DAILY 12/20/21 02/21/22 lisinopriL [Zestril] 20 mg PO DAILY 12/20/21 02/21/22 metFORMIN HCL 500 mg PO BID 12/20/21 02/21/22 ondansetron HCL [Zofran] 8 mg PO BID PRN 12/20/21 02/21/22 Allergies Allergy/AdvReac Type Severity Reaction Status Date / Time No Known Allergies Allergy Verified 10/01/23 00:59 Review of Systems ROS Statement: Those systems with pertinent positive or pertinent negative responses have been documented in the HPI. ROS Other: All systems not noted in ROS Statement are negative. Past Medical History Past Medical History: CVA/TIA, Diabetes Mellitus, Hyperlipidemia, Hypertension, Sleep Apnea/CPAP/BIPAP Additional Past Medical History / Comment(s): uses CPAP, CEREBRAL BLEED 08/19/22 RIGHT SIDE WEAKNESS History of Any Multi-Drug Resistant Organisms: None Reported Past Surgical History: Heart Catheterization, Hernia Repair Additional Past Surgical History / Comment(s): COLONOSCOPY Past Anesthesia/Blood Transfusion Reactions: No Reported Reaction Past Psychological History: Depression Smoking Status: Former smoker Past Alcohol Use History: Occasional Past Drug Use History: None Reported - Past Family History Sister(s) Family Medical History: Cancer Additional Family Medical History / Comment(s): 1 SISTER FROM ESOPHAGEL CANCER. 1 SISTER HAD BREAST CANCER General Exam Limitations: no limitations General appearance: alert, in no apparent distress Eye exam: Present: normal appearance Neck exam: Present: normal inspection Respiratory exam: Present: normal lung sounds bilaterally Cardiovascular Exam: Present: regular rate GI/Abdominal exam: Present: soft (No significant tenderness to palpation on examination.) Rectal exam: Present: other (Exam showed no gross active bleeding.) Neurological exam: Present: alert, oriented X3, CN II-XII intact Skin exam: Present: warm, dry Course Vital Signs 10/01/23 10/01/23 10/01/23 00:55 01:12 02:02 Temperature 98.1 F Pulse Rate 96 85 87 Respiratory 18 16 16 Rate Blood Pressure 106/69 118/94 O2 Sat by Pulse 96 96 96 Oximetry 10/01/23 02:42 Temperature Pulse Rate 62 Respiratory 12 Rate Blood Pressure 100/72 O2 Sat by Pulse 100 Oximetry Medical Decision Making - Medical Decision Making Was pt. sent in by a medical professional or institution (, PA, CARRIER OPERATOR, urgent care, hospital, or assisted...) When possible be specific @ -No Did you speak to anyone other than the patient for history (EMS, parent, family, police, friend...)? What history was obtained from this source @ -Spoke to the patient's son who reported patient had an episode lasting about 2 minutes were he became less responsive and his eyes rolled back. Did you review nursing and triage notes (agree or disagree)? Why? @ -I reviewed and agree with nursing and triage notes Were old charts reviewed (outside hosp., previous admission, EMS record, old EKG, old radiological studies, urgent care reports/EKG's, assisted records)? Report findings @ -Prior records are reviewed. For further details please see HPI Differential Diagnosis (chest pain, altered mental status, abdominal pain women, abdominal pain men, vaginal bleeding, weakness, fever, dyspnea, syncope, headache, dizziness, GI bleed, back pain, seizure, CVA, palpatations, mental health, musculoskeletal)? @ -Differential Abdominal Pain Men: Appendicitis, cholecystitis, diverticulosis, ischemic bowel, pancreatitis, hepatitis, UTI, gastroenteritis, AAA, incarcerated hernia, bowel obstruction, constipation, inflammatory bowel, hepatitis, peptic ulcer disease, splenic infar ction, perforated viscus, testicular torsion, this is not meant to be an all- inclusive list EKG interpreted by me (3pts min.). @ -EKG interpreted by me showing sinus rhythm with nonspecific T wave changes at a rate of 75 bpm. SD 151, QRS 105, QT/QTc 392/401. X-rays interpreted by me (1pt min.). @ -None done CT interpreted by me (1pt min.). @ -None done U/S interpreted by me (1pt. min.). @ -None done What testing was considered but not performed or refused? (CT, X-rays, U/S, labs)? Why? @ -None What meds were considered but not given or refused? Why? @ -None Did you discuss the management of the patient with other professionals (professionals i.e. Dr., PA, CARRIER OPERATOR, lab, RT, psych nurse, social media manager, cannon fire direction specialist, teacher, security officer supervisor, bilingual case manager)? Give summary @ -Case discussed with Dr. Paige, attending physician at [facility], who ac cepted transfer of patient. Was smoking cessation discussed for >3mins.? @ -No Was critical care preformed (if so, how long)? @ -No Were there social determinants of health that impacted care today? How? (Homelessness, low income, unemployed, alcoholism, drug addiction, transportation, low edu. Level, literacy, decrease access to med. care, care home, rehab)? @ -No Was there de-escalation of care discussed even if they declined (Discuss DNR or withdrawal of care, Hospice)? DNR status @ -No What co-morbidities impacted this encounter? (DM, HTN, Smoking, COPD, CAD, Cancer, CVA, ARF, Chemo, Hep., AIDS, mental health diagnosis, sleep apnea, morbid obesity)? @ -None Was patient admitted / discharged? Hospital course, mention meds given and route, prescriptions, significant lab abnormalities, going to OR and other pertinent info. @ -Transfer 63-year-old male presenting to the ED with complaints of abdominal pain and GI bleeding. Prior to examination patient was noted to have a syncopal episode. Patient did use the bedside commode and this showed a large amount of gross blood. Laboratory studies significant for a hemoglobin of 9.7. Chemistry panel shows an elevated BUN at 42. At this time, do not have GI services available. Secondary to this patient will be transferred to [facility] for further evaluation. Undiagnosed new problem with uncertain prognosis? @ -No Drug Therapy requiring intensive monitoring for toxicity (Heparin, Nitro, Insul in, Cardizem)? @ -No Were any procedures done? @ -No Diagnosis/symptom? @ -Abdominal pain, GI bleeding Acute, or Chronic, or Acute on Chronic? @ -Acute Uncomplicated (without systemic symptoms) or Complicated (systemic symptoms)? @ -Complicated Side effects of treatment? @ -No Exacerbation, Progression, or Severe Exacerbation? @ -No Poses a threat to life or bodily function? How? (Chest pain, USA, CA, pneumonia, PE, COPD, DKA, ARF, appy, cholecystitis, CVA, Diverticulitis, Homicidal, Suicidal, threat to staff... and all critical care pts) @ -Possibly - Lab Data Result diagrams: 10/01/23 01:52 10/01/23 01:52 Lab Results 10/01/23 10/01/23 10/01/23 Range/Units 01:42 01:52 01:52 WBC 12.8 H (3.8-10.6) k/uL RBC 3.20 L (4.30-5.90) m/uL Hgb 9.7 L (13.0-17.5) gm/dL Hct 28.7 L (39.0-53.0) % MCV 89.7 (80.0-100.0) fL MCH 30.3 (25.0-35.0) pg MCHC 33.8 (31.0-37.0) g/dL RDW 13.2 (11.5-15.5) % Plt Count 273 (150-450) k/uL MPV 9.0 Neutrophils % 88 % Lymphocytes % 6 % Monocytes % 5 % Eosinophils % 1 % Basophils % 0 % Neutrophils # 11.2 H (1.3-7.7) k/uL Lymphocytes # 0.8 L (1.0-4.8) k/uL Monocytes # 0.6 (0-1.0) k/uL Eosinophils # 0.1 (0-0.7) k/uL Basophils # 0.0 (0-0.2) k/uL PT 11.8 (10.0-12.5) sec INR 1.1 (<1.2) APTT 22.5 (22.0-30.0) sec Sodium (137-145) mmol/L Potassium (3.5-5.1) mmol/L Chloride (98-107) mmol/L Carbon Dioxide (22-30) mmol/L Anion Gap mmol/L BUN (9-20) mg/dL Creatinine (0.66-1.25) mg/dL Est GFR (CKD-EPI)AfAm (>60 ml/min/1.73 sqM) Est GFR (CKD-EPI)NonAf (>60 ml/min/1.73 sqM) Glucose (74-99) mg/dL POC Glucose (mg/dL) 222 H (70-110) mg/dL POC Glu [facility] Laborer ID Leila Cainy Calcium (8.4-10.2) mg/dL Total Bilirubin (0.2-1.3) mg/dL AST (17-59) U/L ALT (4-49) U/L Alkaline Phosphatase (38-126) U/L Troponin I (0.000-0.034) ng/mL Total Protein (6.3-8.2) g/dL Albumin (3.5-5.0) g/dL 10/01/23 10/01/23 Range/Units 01:52 01:52 WBC (3.8-10.6) k/uL RBC (4.30-5.90) m/uL Hgb (13.0-17.5) gm/dL Hct (39.0-53.0) % MCV (80.0-100.0) fL MCH (25.0-35.0) pg MCHC (31.0-37.0) g/dL RDW (11.5-15.5) % Plt Count (150-450) k/uL MPV Neutrophils % % Lymphocytes % % Monocytes % % Eosinophils % % Basophils % % Neutrophils # (1.3-7.7) k/uL Lymphocytes # (1.0-4.8) k/uL Monocytes # (0-1.0) k/uL Eosinophils # (0-0.7) k/uL Basophils # (0-0.2) k/uL PT (10.0-12.5) sec INR (<1.2) APTT (22.0-30.0) sec Sodium 135 L (137-145) mmol/L Potassium 4.3 (3.5-5.1) mmol/L Chloride 107 (98-107) mmol/L Carbon Dioxide 23 (22-30) mmol/L Anion Gap 5 mmol/L BUN 42 H (9-20) mg/dL Creatinine 1.09 (0.66-1.25) mg/dL Est GFR (CKD-EPI)AfAm 84 (>60 ml/min/1.73 sqM) Est GFR (CKD-EPI)NonAf 73 (>60 ml/min/1.73 sqM) Glucose 210 H (74-99) mg/dL POC Glucose (mg/dL) (70-110) mg/dL POC Glu [employer] Laborer ID Calcium 8.6 (8.4-10.2) mg/dL Total Bilirubin 0.2 (0.2-1.3) mg/dL AST 19 (17-59) U/L ALT 28 (4-49) U/L Alkaline Phosphatase 57 (38-126) U/L Troponin I <0.012 (0.000-0.034) ng/mL Total Protein 5.6 L (6.3-8.2) g/dL Albumin 3.0 L (3.5-5.0) g/dL Disposition Clinical Impression: Abdominal pain, GI bleed Disposition: OTHER INSTITUTION NOT DEFINED Condition: Fair Referrals: Андрей Perez MD [Primary Care Provider] - 1-2 days Time of Disposition: 03:15 - Out of Hospital Transfer - Req. Specs Out of Hospital Transfer - Requested Specifics: Other Emergency Center ([facility]
[2023-10-01 03:52] VITALS: BP 105/71; PULSE 68
== END 2023-10-01 03:43 | disposition other institution (70) ==
LOC: EC 00:51
DX: K92.2 Gastrointestinal hemorrhage, unspecified (principal); R79.89 Other specified abnormal findings of blood chemistry; E11.9 Type 2 diabetes mellitus without complications; I10 Essential (primary) hypertension; E78.5 Hyperlipidemia, unspecified; F32.A Depression, unspecified; Z79.4 Long term (current) use of insulin; Z79.84 Long term (current) use of oral hypoglycemic drugs; Z79.82 Long term (current) use of aspirin; Z79.899 Other long term (current) drug therapy; Z87.891 Personal history of nicotine dependence; Z86.73 Personal history of transient ischemic attack (TIA), and cerebral infarction without residual deficits
CPT/HCPCS: 36415; 80053; 83605; 84484; 85025; 85610; 85730; 93005; 99285

== ENCOUNTER 2023-10-25 14:25 | Inpatient (IN) | payer OTHER, MEDICAID ==
--- NOTE | 2023-10-25 14:54 | ED ---
Weakness HPI - General Chief complaint: Shortness of Breath Stated complaint: Hypotension Time Seen by Provider: 10/25/23 14:27 Source: EMS, RN notes reviewed, old records reviewed, Caregiver Mode of arrival: EMS Limitations: altered mental status, physical limitation - History of Present Illness Initial comments: This is a 63-year-old male to ER for evaluation regards to shortness of breath from [facility], concern for GI bleed with colectomy, low blood pressure and decreased level of responsiveness MD Complaint: generalized weakness -: unknown Location: generalized Severity: severe Consistency: constant Improves with: none Worsens with: none Associated Symptoms: confusion, shortness of breath - Related Data Home Medications Medication Instructions Recorded Confirmed Aspirin EC [Ecotrin Low Dose] 81 mg PO DAILY@0800 12/20/21 10/25/23 Atorvastatin [Lipitor] 80 mg PO DAILY@0800 12/20/21 10/25/23 Docusate [Colace] 100 mg PO BID@0800,1700 12/20/21 10/25/23 Gabapentin [Neurontin] 100 mg PO TID@0600,1200,1700 12/20/21 10/25/23 Pantoprazole [Protonix] 40 mg PO DAILY@0800 12/20/21 10/25/23 metFORMIN HCL 500 mg PO BID@0800,1700 12/20/21 10/25/23 ondansetron HCL [Zofran] 8 mg PO TID@0800,1200,1700 12/20/21 10/25/23 Baclofen 10 mg PO QID@08,12,17,21 10/25/23 10/25/23 Cholestyramine (with Sugar) 4 gm PO DAILY PRN 10/25/23 10/25/23 [Cholestyramine Powder] Dicyclomine [Bentyl] 10 mg PO TID@0800,1200,1700 10/25/23 10/25/23 Loperamide [Imodium] 4 mg PO QID@00,06,12,18 10/25/23 10/25/23 Mirtazapine 30 mg PO HS@2100 10/25/23 10/25/23 NIFEdipine XL [Procardia XL] 60 mg PO DAILY@0800 10/25/23 10/25/23 Sertraline [Zoloft] 100 mg PO DAILY@0800 10/25/23 10/25/23 Previous Rx's Medication Instructions Recorded cefUROXime axetiL [Ceftin] 500 mg PO BID 5 Days #10 tab 10/29/23 Apixaban [Eliquis] 5 mg PO BID tab 11/02/23 lisinopriL [Zestril] 5 mg PO DAILY tab 11/02/23 INSULIN LISPRO (HumaLOG) [humaLOG] 0 unit SQ ACHS #10 ml 11/03/23 Allergies Allergy/AdvReac Type Severity Reaction Status Date / Time No Known Allergies Allergy Verified 10/25/23 17:01 Review of Systems ROS Statement: Those systems with pertinent positive or pertinent negative responses have been documented in the HPI. ROS Other: All systems not noted in ROS Statement are negative. Past Medical History Past Medical History: CVA/TIA, Diabetes Mellitus, Hyperlipidemia, Hypertension, Sleep Apnea/CPAP/BIPAP Additional Past Medical History / Comment(s): uses CPAP, CEREBRAL BLEED 08/19/22 RIGHT SIDE WEAKNESS History of Any Multi-Drug Resistant Organisms: None Reported Past Surgical History: Heart Catheterization, Hernia Repair Additional Past Surgical History / Comment(s): COLONOSCOPY Past Anesthesia/Blood Transfusion Reactions: No Reported Reaction Past Psychological History: Depression Smoking Status: Former smoker Past Alcohol Use History: Occasional Past Drug Use History: None Reported - Past Family History Sister(s) Family Medical History: Cancer Additional Family Medical History / Comment(s): 1 SISTER FROM ESOPHAGEL CANCER. 1 SISTER HAD BREAST CANCER General Exam Limitations: altered mental status General appearance: alert, lethargic, obtunded, in distress Head exam: Present: atraumatic, normocephalic, normal inspection Eye exam: Present: normal appearance, PERRL, EOMI. Absent: scleral icterus, conjunctival injection, periorbital swelling ENT exam: Present: normal exam, mucous membranes moist Neck exam: Present: normal inspection. Absent: tenderness, meningismus, lymphadenopathy Respiratory exam: Present: normal lung sounds bilaterally. Absent: respiratory distress, wheezes, rales, rhonchi, stridor Cardiovascular Exam: Present: regular rate, normal rhythm, normal heart sounds. Absent: systolic murmur, diastolic murmur, rubs, gallop, clicks GI/Abdominal exam: Present: soft, normal bowel sounds. Absent: distended, tenderness, guarding, rebound, rigid Extremities exam: Present: normal inspection, full ROM, normal capillary refill. Absent: tenderness, pedal edema, joint swelling, calf tenderness Back exam: Present: normal inspection Neurological exam: Present: alert, oriented X3, CN II-XII intact Psychiatric exam: Present: normal affect, normal mood Skin exam: Present: warm, dry, intact, normal color. Absent: rash Course Vital Signs 10/25/23 10/25/23 10/25/23 14:34 15:48 15:55 Temperature Pulse Rate 90 90 85 Pulse Rate [ Left Supine Pulse Oximetery ] Respiratory 16 18 20 Rate Blood Pressure 80/63 103/40 89/61 Blood Pressure [Left Arm Supine] O2 Sat by Pulse 100 100 Oximetry 10/25/23 10/25/23 10/25/23 16:21 16:28 16:30 Temperature Pulse Rate 85 80 Pulse Rate [ Left Supine Pulse Oximetery ] Respiratory 20 16 16 Rate Blood Pressure 65/50 68/47 Blood Pressure [Left Arm Supine] O2 Sat by Pulse 100 100 Oximetry 10/25/23 10/25/23 10/25/23 16:52 17:22 18:15 Temperature Pulse Rate 80 79 Pulse Rate [ Left Supine Pulse Oximetery ] Respiratory 12 16 16 Rate Blood Pressure 107/67 113/60 Blood Pressure [Left Arm Supine] O2 Sat by Pulse 96 100 Oximetry 10/25/23 10/25/23 10/25/23 18:35 18:40 18:43 Temperature Pulse Rate 82 85 Pulse Rate [ Left Supine Pulse Oximetery ] Respiratory 18 20 Rate Blood Pressure 84/48 90/58 Blood Pressure [Left Arm Supine] O2 Sat by Pulse 100 100 Oximetry 10/25/23 10/25/23 10/25/23 19:38 19:40 19:50 Temperature Pulse Rate 92 92 90 Pulse Rate [ Left Supine Pulse Oximetery ] Respiratory 12 12 13 Rate Blood Pressure 125/70 125/67 119/65 Blood Pressure [Left Arm Supine] O2 Sat by Pulse 100 100 100 Oximetry 10/25/23 10/25/23 10/25/23 20:00 20:10 20:30 Temperature Pulse Rate 90 96 90 Pulse Rate [ Left Supine Pulse Oximetery ] Respiratory 12 12 12 Rate Blood Pressure 119/65 109/61 91/58 Blood Pressure [Left Arm Supine] O2 Sat by Pulse 100 100 100 Oximetry 10/25/23 10/25/23 10/25/23 20:40 21:20 21:30 Temperature Pulse Rate 108 H 86 83 Pulse Rate [ Left Supine Pulse Oximetery ] Respiratory 12 12 12 Rate Blood Pressure 97/55 95/49 104/61 Blood Pressure [Left Arm Supine] O2 Sat by Pulse 100 100 100 Oximetry 10/25/23 10/26/23 10/26/23 22:45 02:00 04:00 Temperature Pulse Rate Pulse Rate [ 72 72 108 H Left Supine Pulse Oximetery ] Respiratory 20 20 18 Rate Blood Pressure Blood Pressure 141/80 143/86 [Left Arm Supine] O2 Sat by Pulse 93 L 100 Oximetry 10/26/23 10/26/23 10/26/23 11:31 11:42 17:39 Temperature 98.7 F Pulse Rate 105 H 72 Pulse Rate [ Left Supine Pulse Oximetery ] Respiratory 18 20 Rate Blood Pressure 93/61 Blood Pressure [Left Arm Supine] O2 Sat by Pulse 93 L 93 L 100 Oximetry 10/26/23 10/26/23 10/27/23 19:02 23:40 03:59 Temperature 98.2 F Pulse Rate 86 98 95 Pulse Rate [ Left Supine Pulse Oximetery ] Respiratory 18 18 16 Rate Blood Pressure 104/70 133/68 129/67 Blood Pressure [Left Arm Supine] O2 Sat by Pulse 100 100 98 Oximetry 10/27/23 10/27/23 06:47 15:19 Temperature 98.4 F Pulse Rate 74 80 Pulse Rate [ Left Supine Pulse Oximetery ] Respiratory 16 20 Rate Blood Pressure 93/60 144/78 Blood Pressure [Left Arm Supine] O2 Sat by Pulse 100 100 Oximetry - Reevaluation(s) Reevaluation #1: 10/25/23 14:53 Medical records reviewed Reevaluation #2: 10/25/23 16:52 patient has symptoms of relapsing and remitting mental status Reevaluation #3: 10/25/23 16:53 Patient informed of results questions answered Reevaluation #4: 10/25/23 14:53 Was pt. sent in by a medical professional or institution (, PA, PRACTICING MD ANESTHESIOLOGIST, urgent care, hospital, or retirement...) When possible be specific @ -no Did you speak to anyone other than the patient for history (EMS, parent, family, police, friend...)? What history was obtained from this source @ -no Did you review nursing and triage notes (agree or disagree)? Why? @ -agree Are old charts reviewed (outside hosp., previous admission, EMS record, old EKG, old radiological studies, urgent care reports/EKG's, retirement records)? Report findings @ -yes Differential Diagnosis (chest pain, altered mental status, abdominal pain women, abdominal pain men, vaginal bleeding, weakness, fever, dyspnea, syncope, headache, dizziness, GI bleed, back pain, seizure, CVA, palpatations, mental health, musculoskeletal)? @ -prior EKG interpreted by me (3pts min.). @ -yes X-rays interpreted by me (1pt min.). @ -yes negative for acute disease CT interpreted by me (1pt min.). @ -Yes pending, negative for acute disease U/S interpreted by me (1pt. min.). @ -no What testing was considered but not performed or refused? (CT, X-rays, U/S, labs)? Why? @ -none What meds were considered but not given or refused? Why? @ -none Did you discuss the management of the patient with other professionals (professionals i.e. , PA, PRACTICING MD ANESTHESIOLOGIST, lab, RT, psych nurse, clinical social work therapist, flame brazing machine operator, teacher, ground intelligence officer, immigration case worker)? Give summary @ -no Was smoking cessation discussed for >3mins.? @ -no Was critical care preformed (if so, how long)? @ -no Were there social determinants of health that impacted care today? How? (Homelessness, low income, unemployed, alcoholism, drug addiction, transportation, low edu. Level, literacy, decrease access to med. care, residential, rehab)? @ -none Was there de-escalation of care discussed even if they declined (Discuss DNR or withdrawal of care, Hospice)? DNR status @ -no What co-morbidities impacted this encounter? (DM, HTN, Smoking, COPD, CAD, Cancer, CVA, ARF, Chemo, Hep., AIDS, mental health diagnosis, sleep apnea, morbid obesity)? @ -none Was patient admitted / discharged? Hospital course, mention meds given and route, prescriptions, significant lab abnormalities, going to OR and other pertinent info. @ - 63 male to the ER for evaluation patient presents today for evaluation of altered mental status and decreased responsiveness with low blood pressure without symptoms or significant improving with hydration here in the ER, Leach is placed, minimal output, patient admitted for renal failure and dehydration with altered mental status Admitted Undiagnosed new problem with uncertain prognosis? @ -no Drug Therapy requiring intensive monitoring for toxicity (Heparin, Nitro, Insulin, Cardizem)? @ -no Were any procedures done? @ -no Diagnosis/symptom? @ -Renal failure dehydration altered mental status Acute, or Chronic, or Acute on Chronic? @ -Acute Uncomplicated (without systemic symptoms) or Complicated (systemic symptoms)? @ -Complicated Side effects of treatment? @ -no Exacerbation, Progression, or Severe Exacerbation? @ -exacerbation Poses a threat to life or bodily function? How? (Chest pain, USA, NM, pneumonia, PE, COPD, DKA, ARF, appy, cholecystitis, CVA, Diverticulitis, Homicidal, Suicidal, threat to staff... and all critical care pts) @ -yes with significant weakness and altered mental status Reevaluation #5: Differential Altered Mental Status: Hypoglycemia, DKA, hypercapnia, ETOH, overdose, CO poisoning, trauma, myxedema coma, HTN encephalopathy, infection, encephalitis, psychosis, intercranial hemorrhage, hepatic encephalopathy, meningitis, CVA, this is not meant to be an all-inclusive list - Consultations Consultation #1: Spoke with Dr. Perez will see this patient EKG Findings - EKG Comments: EKG Findings:: EKG is sinus 88 VA 169 QRS 110 QTc 428 - EKG Results: EKG: interpreted by RACHEL Medical Decision Making - Medical Decision Making 63 male to the ER for evaluation patient midstate for evaluation of altered mental status and decreased responsiveness with low blood pressure without symptoms or significant improving with hydration here in the ER, Leach is placed, minimal output, patient admitted for renal failure and dehydration with altered mental status - Lab Data Result diagrams: 11/03/23 06:57 11/03/23 06:57 Lab Results 10/25/23 10/25/23 10/25/23 Range/Units 15:31 15:31 15:31 WBC 11.0 H (3.8-10.6) k/uL RBC 4.45 (4.30-5.90) m/uL Hgb 12.7 L D (13.0-17.5) gm/dL Hct 40.8 (39.0-53.0) % MCV 91.8 (80.0-100.0) fL MCH 28.5 (25.0-35.0) pg MCHC 31.0 (31.0-37.0) g/dL RDW 14.6 (11.5-15.5) % Plt Count 352 (150-450) k/uL MPV 8.4 Neutrophils % 84 % Lymphocytes % 11 % Monocytes % 3 % Eosinophils % 1 % Basophils % 0 % Neutrophils # 9.2 H (1.3-7.7) k/uL Lymphocytes # 1.2 (1.0-4.8) k/uL Monocytes # 0.4 (0-1.0) k/uL Eosinophils # 0.1 (0-0.7) k/uL Basophils # 0.0 (0-0.2) k/uL Hypochromasia Slight PT 11.2 (10.0-12.5) sec INR 1.0 (<1.2) APTT 21.7 L (22.0-30.0) sec Sodium 141 (137-145) mmol/L Potassium 5.4 H (3.5-5.1) mmol/L Chloride 101 (98-107) mmol/L Carbon Dioxide 21 L (22-30) mmol/L Anion Gap 19 mmol/L BUN 66 H (9-20) mg/dL Creatinine 5.55 H (0.66-1.25) mg/dL Est GFR (CKD-EPI)AfAm 12 (>60 ml/min/1.73 sqM) Est GFR (CKD-EPI)NonAf 10 (>60 ml/min/1.73 sqM) Glucose 140 H (74-99) mg/dL Lactic Ac Sepsis Rflx Plasma Lactic Acid [place] (0.7-2.0) mmol/L Calcium 11.0 H (8.4-10.2) mg/dL Phosphorus 8.9 H (2.5-4.5) mg/dL Magnesium 2.1 (1.6-2.3) mg/dL Total Bilirubin 0.6 (0.2-1.3) mg/dL AST 25 (17-59) U/L ALT 21 (4-49) U/L Alkaline Phosphatase 136 H (38-126) U/L Creatine Kinase (55-170) U/L Troponin I (0.000-0.034) ng/mL Total Protein 9.1 H (6.3-8.2) g/dL Albumin 5.3 H (3.5-5.0) g/dL TSH 2.630 (0.465-4.680) mIU/L 10/25/23 10/25/23 10/25/23 Range/Units 15:31 15:31 15:31 WBC (3.8-10.6) k/uL RBC (4.30-5.90) m/uL Hgb (13.0-17.5) gm/dL Hct (39.0-53.0) % MCV (80.0-100.0) fL MCH (25.0-35.0) pg MCHC (31.0-37.0) g/dL RDW (11.5-15.5) % Plt Count (150-450) k/uL MPV Neutrophils % % Lymphocytes % % Monocytes % % Eosinophils % % Basophils % % Neutrophils # (1.3-7.7) k/uL Lymphocytes # (1.0-4.8) k/uL Monocytes # (0-1.0) k/uL Eosinophils # (0-0.7) k/uL Basophils # (0-0.2) k/uL Hypochromasia PT (10.0-12.5) sec INR (<1.2) APTT (22.0-30.0) sec Sodium (137-145) mmol/L Potassium (3.5-5.1) mmol/L Chloride (98-107) mmol/L Carbon Dioxide (22-30) mmol/L Anion Gap mmol/L BUN (9-20) mg/dL Creatinine (0.66-1.25) mg/dL Est GFR (CKD-EPI)AfAm (>60 ml/min/1.73 sqM) Est GFR (CKD-EPI)NonAf (>60 ml/min/1.73 sqM) Glucose (74-99) mg/dL Lactic Ac Sepsis Rflx Plasma Lactic Acid [place] 4.8 H* (0.7-2.0) mmol/L Calcium (8.4-10.2) mg/dL Phosphorus (2.5-4.5) mg/dL Magnesium (1.6-2.3) mg/dL Total Bilirubin (0.2-1.3) mg/dL AST (17-59) U/L ALT (4-49) U/L Alkaline Phosphatase (38-126) U/L Creatine Kinase 49 L (55-170) U/L Troponin I 1.250 H* (0.000-0.034) ng/mL Total Protein (6.3-8.2) g/dL Albumin (3.5-5.0) g/dL TSH (0.465-4.680) mIU/L 10/25/23 Range/Units 16:01 WBC (3.8-10.6) k/uL RBC (4.30-5.90) m/uL Hgb (13.0-17.5) gm/dL Hct (39.0-53.0) % MCV (80.0-100.0) fL MCH (25.0-35.0) pg MCHC (31.0-37.0) g/dL RDW (11.5-15.5) % Plt Count (150-450) k/uL MPV Neutrophils % % Lymphocytes % % Monocytes % % Eosinophils % % Basophils % % Neutrophils # (1.3-7.7) k/uL Lymphocytes # (1.0-4.8) k/uL Monocytes # (0-1.0) k/uL Eosinophils # (0-0.7) k/uL Basophils # (0-0.2) k/uL Hypochromasia PT (10.0-12.5) sec INR (<1.2) APTT (22.0-30.0) sec Sodium (137-145) mmol/L Potassium (3.5-5.1) mmol/L Chloride (98-107) mmol/L Carbon Dioxide (22-30) mmol/L Anion Gap mmol/L BUN (9-20) mg/dL Creatinine (0.66-1.25) mg/dL Est GFR (CKD-EPI)AfAm (>60 ml/min/1.73 sqM) Est GFR (CKD-EPI)NonAf (>60 ml/min/1.73 sqM) Glucose (74-99) mg/dL Lactic Ac Sepsis Rflx Y Plasma Lactic Acid [place] (0.7-2.0) mmol/L Calcium (8.4-10.2) mg/dL Phosphorus (2.5-4.5) mg/dL Magnesium (1.6-2.3) mg/dL Total Bilirubin (0.2-1.3) mg/dL AST (17-59) U/L ALT (4-49) U/L Alkaline Phosphatase (38-126) U/L Creatine Kinase (55-170) U/L Troponin I (0.000-0.034) ng/mL Total Protein (6.3-8.2) g/dL Albumin (3.5-5.0) g/dL TSH (0.465-4.680) mIU/L - EKG Data -: EKG Interpreted by Id - Radiology Data Radiology results: pending ( CT brain), report reviewed (Chest x-ray is negative for acute disease), image reviewed Disposition Clinical Impression: Dehydration, Abdominal pain, Weakness, AMS (altered mental status), LURDES (acute kidney injury) Dis[facility] Condition: Stable Is patient prescribed a controlled substance at d/c from ED?: No Time of Disposition: 16:50
[2023-10-25 15:43] LABS: Basophils % (A) 0 %; Eosinophils # (A) 0.1 k/uL (0-0.7); Eosinophils % (A) 1 %; HCT 40.8 % (39.0-53.0); Hypochromasia Slight; Lymphocytes # (A) 1.2 k/uL (1.0-4.8); Lymphocytes % (A) 11 %; MCH 28.5 pg (25.0-35.0); MCV 91.8 fL (80.0-100.0); Mean Platelet Volume 8.4; Monocytes # (A) 0.4 k/uL (0-1.0); Monocytes % (A) 3 %; Neutrophils # (A) 9.2 k/uL (1.3-7.7); Neutrophils % (A) 84 %; Platelet Count 352 k/uL (150-450); RBC 4.45 m/uL (4.30-5.90); RDW 14.6 % (11.5-15.5)
[2023-10-25] MEDS: NALOXONE 0.4 MG/ML 1 ML VIAL IVP STA ×4 (15:49→18:40)
[2023-10-25] MEDS: SODIUM CHLORIDE 0.9% 1,000 ML IV STA ×2 (15:52→16:58)
[2023-10-25] MEDS: SODIUM CHLORIDE 0.9% 500 ML 500 ML IV STA ×2 (15:53→16:59)
--- NOTE | 2023-10-25 15:56 | XR ---
EXAMINATION TYPE: XR chest 1V portable DATE OF EXAM: 10/25/2023 3:49 PM CLINICAL INDICATION:Male, 63 years old with history of weak; [facility] COMPARISON: Chest radiographs from 08/20/2021 TECHNIQUE: XR chest 1V portable Frontal view of the chest. FINDINGS: Lungs/Pleura: There is no evidence of pleural effusion, focal consolidation, or pneumothorax. Pulmonary vascularity: Unremarkable. Heart/mediastinum: Cardiomediastinal silhouette is unremarkable. Musculoskeletal: No acute osseous pathology. IMPRESSION: No acute cardiopulmonary disease/process.
[2023-10-25 16:02] LABS: ALT 21 U/L (4-49); AST 25 U/L (17-59); African American GFR (CKD) 12 (>60 ml/min/1.73 sqM); Albumin 5.3 g/dL (3.5-5.0); Alkaline Phosphatase 136 U/L (38-126); Anion Gap 19 mmol/L; Blood Urea Nitrogen 66 mg/dL (9-20); Carbon Dioxide 21 mmol/L (22-30); Chloride 101 mmol/L (98-107); Glucose 140 mg/dL (74-99); Magnesium 2.1 mg/dL (1.6-2.3); Non-African American GFR(CKD) 10 (>60 ml/min/1.73 sqM); Phosphorus 8.9 mg/dL (2.5-4.5); Potassium 5.4 mmol/L (3.5-5.1); Sodium 141 mmol/L (137-145); Total Bilirubin 0.6 mg/dL (0.2-1.3); Total Protein 9.1 g/dL (6.3-8.2)
[2023-10-25 16:04] LABS: Prothrombin Time 11.2 sec (10.0-12.5)
[2023-10-25 16:12] LABS: HGB 12.7 gm/dL (13.0-17.5)
[2023-10-25 16:46] LABS: Partial Thromboplastin Time 21.7 sec (22.0-30.0)
[2023-10-25] MEDS ORDERED: NALOXONE 0.4 MG/ML 1 ML VIAL IV PRN (16:49)
[2023-10-25 17:59] LABS: Amphetamine Screen,Urine Not Detected (NotDetected); Barbiturate Screen,Urine Not Detected (NotDetected); Benzodiazepines Screen,Urine Not Detected (NotDetected); Cocaine Screen,Urine Not Detected (NotDetected); Methadone Screen, Urine Not Detected (NotDetected); Opiate Screen,Urine Not Detected (NotDetected); Oxycodone Screen, Urine Not Detected (NotDetected); Phencyclidine Screen,Urine Not Detected (NotDetected); Tricyclic Antidepressant,Urine Not Detected (NotDetected); Urn Cannabinoid Scrn Not Detected (NotDetected)
[2023-10-25] MEDS: SODIUM CHLORIDE 0.9% 1,000 ML IV SCH (18:14)
[2023-10-25] MEDS: SODIUM CHLORIDE 0.9% 1,000 ML IV ONE (18:43)
--- NOTE | 2023-10-26 01:31 | CT ---
EXAM: CT Head Without Intravenous Contrast CLINICAL HISTORY: ITS.REASON CT Reason: ams TECHNIQUE: Axial computed tomography images of the head/brain without intravenous contrast. CTDI is 47.2 mGy and DLP is 1191.4 mGy-cm. This CT exam was performed using one or more of the following dose reduction techniques: automated exposure control, adjustment of the mA and/or kV according to patient size, and/or use of iterative reconstruction technique. COMPARISON: No relevant prior studies available. FINDINGS: Brain: 2 cm area of encephalomalacia within the left occipital parietal lobe likely related to remote infarct. No hemorrhage. No significant white matter disease. Ventricles: Unremarkable. No ventriculomegaly. Bones/joints: Unremarkable. No acute fracture. Soft tissues: Unremarkable. Sinuses: Unremarkable as visualized. No acute sinusitis. Mastoid air cells: Unremarkable as visualized. No mastoid effusion. IMPRESSION: No acute intracranial abnormality. 2 cm area of encephalomalacia within the left occipital parietal lobe likely related to remote infarct.
[2023-10-26 02:45] LABS: ALT 12 U/L (4-49); AST 17 U/L (17-59); African American GFR (CKD) 13 (>60 ml/min/1.73 sqM); Albumin 3.1 g/dL (3.5-5.0); Alkaline Phosphatase 85 U/L (38-126); Anion Gap 11 mmol/L; Blood Urea Nitrogen 62 mg/dL (9-20); Calcium 8.1 mg/dL (8.4-10.2); Carbon Dioxide 17 mmol/L (22-30); Chloride 112 mmol/L (98-107); Glucose 110 mg/dL (74-99); Magnesium 1.7 mg/dL (1.6-2.3); Non-African American GFR(CKD) 12 (>60 ml/min/1.73 sqM); Phosphorus 6.8 mg/dL (2.5-4.5); Potassium 4.2 mmol/L (3.5-5.1); Sodium 140 mmol/L (137-145); Total Bilirubin 0.3 mg/dL (0.2-1.3); Total Protein 5.7 g/dL (6.3-8.2)
[2023-10-26 02:48] LABS: Basophils % (A) 0 %; Eosinophils % (A) 1 %; HCT 26.3 % (39.0-53.0); Hypochromasia Moderate; Lymphocytes # (A) 1.1 k/uL (1.0-4.8); Lymphocytes % (A) 12 %; MCHC 32.3 g/dL (31.0-37.0); MCV 92.8 fL (80.0-100.0); Mean Platelet Volume 8.4; Monocytes # (A) 0.4 k/uL (0-1.0); Monocytes % (A) 4 %; Neutrophils % (A) 82 %; Platelet Count 219 k/uL (150-450); RBC 2.83 m/uL (4.30-5.90); RDW 14.8 % (11.5-15.5); WBC 8.6 k/uL (3.8-10.6)
[2023-10-26 02:53] LABS: HGB 8.5 gm/dL (13.0-17.5)
[2023-10-26] MEDS: MORPHINE SULFATE 4 MG/ML SYRINGE IV PRN (09:39)
[2023-10-26] MEDS ORDERED: DEXTROSE 50% SYRINGE 50 ML IVP PRN (10:30)
[2023-10-26] MEDS: hydrOXYzine HCL 25 MG TAB PO SCH (11:34)
[2023-10-26] MEDS: PANTOPRAZOLE 40 MG/10 ML VIAL IVP SCH (11:35)
[2023-10-26 11:41] LABS: Basophils % (A) 0 %; Eosinophils # (A) 0.1 k/uL (0-0.7); Eosinophils % (A) 1 %; HCT 26.7 % (39.0-53.0); HGB 8.5 gm/dL (13.0-17.5); Hypochromasia Slight; Lymphocytes # (A) 0.8 k/uL (1.0-4.8); Lymphocytes % (A) 8 %; MCH 29.3 pg (25.0-35.0); MCHC 31.9 g/dL (31.0-37.0); MCV 91.8 fL (80.0-100.0); Mean Platelet Volume 8.1; Monocytes # (A) 0.6 k/uL (0-1.0); Monocytes % (A) 6 %; Neutrophils # (A) 8.5 k/uL (1.3-7.7); Neutrophils % (A) 84 %; Platelet Count 243 k/uL (150-450); RBC 2.91 m/uL (4.30-5.90); RDW 14.6 % (11.5-15.5); WBC 10.1 k/uL (3.8-10.6)
--- NOTE | 2023-10-26 11:59 | P.NPCON ---
History of Present Illness - Reason for Consult acute renal failure - History of Present Illness Patient is a 63-year-old male who was sent in to the hospital from [facility] due to mental status changes and concern for possible ongoing GI bleed. According to the family patient was recently hospitalized and [facility] for acute GI bleed. He had more than 10 units of packed RBCs transfusion and had bowel surgery with significant resection of the large intestine. Patient was at [facility] only for 2 days. No significant urinary symptoms per family No history of fever Leach catheter was placed in the ER and 500 mL of urine was obtained. It looks like another 600 mL was obtained therefore there was likely underlying urine retention. Blood pressure was low initially with systolic in the 60s. Currently improved. Patient is maintained on IV fluids. NOE inhibitor's on hold Serum creatinine was 5.5 yesterday and it is 4.9 today. Previous creatinine 1.0 on 10/01/2023 Review of Systems As per HPI Past Medical History Past Medical History: CVA/TIA, Diabetes Mellitus, Hyperlipidemia, Hypertension, Sleep Apnea/CPAP/BIPAP Additional Past Medical History / Comment(s): uses CPAP, CEREBRAL BLEED 08/19/22 RIGHT SIDE WEAKNESS History of Any Multi-Drug Resistant Organisms: None Reported Past Surgical History: Heart Catheterization, Hernia Repair Additional Past Surgical History / Comment(s): COLONOSCOPY Past Anesthesia/Blood Transfusion Reactions: No Reported Reaction Past Psychological History: Depression Smoking Status: Former smoker Past Alcohol Use History: Occasional Past Drug Use History: None Reported - Past Family History Sister(s) Family Medical History: Cancer Additional Family Medical History / Comment(s): 1 SISTER FROM ESOPHAGEL CANCER. 1 SISTER HAD BREAST CANCER Medications and Allergies Home Medications Medication Instructions Recorded Confirmed Type Aspirin EC [Ecotrin Low Dose] 81 mg PO DAILY@0800 12/20/21 10/25/23 History Atorvastatin [Lipitor] 80 mg PO DAILY@0800 12/20/21 10/25/23 History Docusate [Colace] 100 mg PO BID@0800,1700 12/20/21 10/25/23 History Gabapentin [Neurontin] 100 mg PO TID@0600,1200,1700 12/20/21 10/25/23 History Pantoprazole [Protonix] 40 mg PO DAILY@0800 12/20/21 10/25/23 History lisinopriL [Zestril] 20 mg PO DAILY@0800 12/20/21 10/25/23 History metFORMIN HCL 500 mg PO BID@0800,1700 12/20/21 10/25/23 History ondansetron HCL [Zofran] 8 mg PO TID@0800,1200,1700 12/20/21 10/25/23 History Baclofen 10 mg PO QID@08,12,17,21 10/25/23 10/25/23 History Cholestyramine (with Sugar) 4 gm PO DAILY PRN 10/25/23 10/25/23 History [Cholestyramine Powder] Dicyclomine [Bentyl] 10 mg PO TID@0800,1200,1700 10/25/23 10/25/23 History Loperamide [Imodium] 4 mg PO QID@00,06,12,18 10/25/23 10/25/23 History Mirtazapine 30 mg PO HS@2100 10/25/23 10/25/23 History NIFEdipine XL [Procardia XL] 60 mg PO DAILY@0800 10/25/23 10/25/23 History Sertraline [Zoloft] 100 mg PO DAILY@0800 10/25/23 10/25/23 History Allergies Allergy/AdvReac Type Severity Reaction Status Date / Time No Known Allergies Allergy Verified 10/25/23 17:01 Physical Exam Vitals: Vital Signs Pulse Pulse Resp BP BP Pulse Ox 10/26/23 11:42 93 L 10/26/23 11:31 105 H 18 93/61 93 L 10/26/23 04:00 108 H 18 143/86 100 10/26/23 02:00 72 20 10/25/23 22:45 72 20 141/80 93 L 10/25/23 21:30 83 12 104/61 100 10/25/23 21:20 86 12 95/49 100 10/25/23 20:40 108 H 12 97/55 100 10/25/23 20:30 90 12 91/58 100 10/25/23 20:10 96 12 109/61 100 10/25/23 20:00 90 12 119/65 100 10/25/23 19:50 90 13 119/65 100 10/25/23 19:40 92 12 125/67 100 10/25/23 19:38 92 12 125/70 100 10/25/23 18:43 85 20 90/58 100 10/25/23 18:40 18 10/25/23 18:35 82 84/48 100 10/25/23 18:15 79 16 113/60 100 10/25/23 17:22 80 16 107/67 96 10/25/23 16:52 12 10/25/23 16:30 80 16 68/47 100 10/25/23 16:28 16 10/25/23 16:21 85 20 65/50 100 10/25/23 15:55 85 20 89/61 100 10/25/23 15:48 90 18 103/40 100 10/25/23 14:34 90 16 80/63 Intake and Output 10/25/23 10/26/23 10/26/23 22:59 06:59 14:59 Output Total 1100 Balance -1100 Output: Urine 500 Stool 600 Other: Voiding Method Indwelling Catheter Patient is awake, confused. Not in any acute distress Examination of the heart S1 and S2 Examination of the lungs bilateral breath sounds are heard Abdomen is soft nontender, ileostomy noted Examination of lower extremity shows no evidence of edema Patient is moving all 4 extremities, he is agitated Results - Lab Results Most recent lab results Calcium 8.1 mg/dL (8.4-10.2) L 10/26/23 02:18 Phosphorus 6.8 mg/dL (2.5-4.5) H 10/26/23 02:18 Magnesium 1.7 mg/dL (1.6-2.3) 10/26/23 02:18 10/26/23 11:36 10/26/23 02:18 Assessment and Plan Assessment: 1. Acute kidney injury ATN secondary to hypotension. Possible underlying urine retention as well. Currently with indwelling Leach catheter. Noe inhibitors are on hold. Check UA. Check ultrasound of the kidneys 2. Mental status changes related to hypotension and possibly related to advanced acute kidney injury. Renal function is currently improving therefore I will hold off on dialysis. 3. Anion gap metabolic acidosis secondary to acute kidney injury and lactic acidosis 4. 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 Renal function is improving therefore I will hold off on renal replacement therapy at this time Thank you for the consultation. We will continue to follow the patient with you during his hospitalization
[2023-10-26 12:22] LABS: Glucose,Whole Blood 115 mg/dL (70-110)
[2023-10-26] MEDS: INSULIN ASPART (NovoLOG) 100 UNIT/ML VIAL SQ SCH (12:23)
--- NOTE | 2023-10-26 13:30 | US ---
EXAMINATION TYPE: US kidneys/renal and bladder DATE OF EXAM: 10/26/2023 COMPARISON: NONE CLINICAL INDICATION: Male, 63 years old with history of adilson; Recent hospitalization for internal blee d from bowel; Lost a lot of blood (45 Unit transfer?); History taken from patients . EXAM MEASUREMENTS: Right Kidney: 10.9 x 5.8 x 5.5 cm Left Kidney: 9.8 x 6.4 x 5.2 cm Post Void Residual Volume: NA mL Right Kidney: Multiple cysts, largest = 5.1 x 4.7 x 4.0 cm Left Kidney: wnl Bladder: Leach noted within Bilateral Jets seen: Not assessed Normal Post Void Residual: NA There is no evidence for hydronephrosis at this point in time. No nephrolithiasis is seen. Incidental note is made of multiple gallstones within the gallbladder which is only partially include d. IMPRESSION: 1. Multiple right-sided renal cysts. 2. No hydronephrosis or shadowing renal stones otherwise seen. 3. Incidental note is made of cholelithiasis.
[2023-10-26 13:50] LABS: Amorphous Sediment,Urine Moderate /hpf; Appearance,Urine Turbid (Clear); Bacteria,Urine Occasional /hpf; Bilirubin,Urine Negative (Negative); Blood,Urine Negative (Negative); Color,Urine Yellow; Glucose,Urine (UA) Negative (Negative); Hyaline Casts,Urine 9 /lpf (0-2); Ketones,Urine Negative (Negative); Leukocyte Esterase,Urine Negative (Negative); Mucus,Urine Many /hpf; Nitrite,Urine Negative (Negative); PH, Urine 5.5 (5.0-8.0); Protein,Urine 1+ (Negative); Specific Gravity,Urine 1.024 (1.001-1.035); Uric Acid Crystals,Urine Occasional /hpf; Urobilinogen,Urine <2.0 mg/dL (<2.0); WBC,Urine 4 /hpf (0-5)
[2023-10-26] MEDS: LORazepam 2 MG/ML INJ IV PRN (13:59)
[2023-10-26 14:31] LABS: Appearance,Urine Turbid (Clear); Bacteria,Urine Rare /hpf; Bilirubin,Urine Negative (Negative); Blood,Urine Moderate (Negative); Color,Urine Colorless; Glucose,Urine (UA) 1+ (Negative); Ketones,Urine Negative (Negative); Leukocyte Esterase,Urine Moderate (Negative); Mucus,Urine Rare /hpf; Nitrite,Urine Negative (Negative); Protein,Urine 1+ (Negative); RBC,Urine >182 /hpf (0-5); Specific Gravity,Urine 1.011 (1.001-1.035); Squamous Epithelial Cell,Urine 1 /hpf (0-4); Triple Phosphate Crystal,Urine Moderate /hpf; Urobilinogen,Urine <2.0 mg/dL (<2.0); WBC,Urine 10 /hpf (0-5)
--- NOTE | 2023-10-26 14:31 | P.HPIM ---
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 at bedside reports she was told by Kevin that patient had a seizure. On admission, Leach catheter was placed with immediate return of 500 mL of urine followed by another 600ml. Hypotensive on admission with lowest blood pressure recorded as 65/50, heart rate 85, respiratory rate 20, maintaining O2 sats of 100% on 4 L nasal cannula, temperature pending. Received multiple fluid boluses and currently receiving IV fluid hydration of saline 130 MLS per hour. Serum creatinine was 5.5, currently 4.96, baseline creatinine 1. Bicarb 17, bicarb drip ordered. Chest x-ray reported no acute cardiopulmonary disease/process. Brain CT reported no acute intracranial abnormality, 2 cm area of encephalomalacia within the left occipital parietal lobe likely related to remote infarct. Denies chest pain, palpitations .troponin elevated 1.250, repeat level ordered. Review of Systems ROS unable to be obtained at this time secondary to patient's current mental status. Past Medical History Past Medical History: CVA/TIA, Diabetes Mellitus, Hyperlipidemia, Hypertension, Sleep Apnea/CPAP/BIPAP Additional Past Medical History / Comment(s): uses CPAP, CEREBRAL BLEED 08/19/22 RIGHT SIDE WEAKNESS History of Any Multi-Drug Resistant Organisms: None Reported Past Surgical History: Heart Catheterization, Hernia Repair Additional Past Surgical History / Comment(s): COLONOSCOPY Past Anesthesia/Blood Transfusion Reactions: No Reported Reaction Past Psychological History: Depression Smoking Status: Former smoker Past Alcohol Use History: Occasional Past Drug Use History: None Reported - Past Family History Sister(s) Family Medical History: Cancer Additional Family Medical History / Comment(s): 1 SISTER FROM ESOPHAGEL CANCER. 1 SISTER HAD BREAST CANCER Medications and Allergies Home Medications Medication Instructions Recorded Confirmed Type Aspirin EC [Ecotrin Low Dose] 81 mg PO DAILY@0800 12/20/21 10/25/23 History Atorvastatin [Lipitor] 80 mg PO DAILY@0800 12/20/21 10/25/23 History Docusate [Colace] 100 mg PO BID@0800,1700 12/20/21 10/25/23 History Gabapentin [Neurontin] 100 mg PO TID@0600,1200,1700 12/20/21 10/25/23 History Pantoprazole [Protonix] 40 mg PO DAILY@0800 12/20/21 10/25/23 History lisinopriL [Zestril] 20 mg PO DAILY@0800 12/20/21 10/25/23 History metFORMIN HCL 500 mg PO BID@0800,1700 12/20/21 10/25/23 History ondansetron HCL [Zofran] 8 mg PO TID@0800,1200,1700 12/20/21 10/25/23 History Baclofen 10 mg PO QID@08,12,17,21 10/25/23 10/25/23 History Cholestyramine (with Sugar) 4 gm PO DAILY PRN 10/25/23 10/25/23 History [Cholestyramine Powder] Dicyclomine [Bentyl] 10 mg PO TID@0800,1200,1700 10/25/23 10/25/23 History Loperamide [Imodium] 4 mg PO QID@00,06,12,18 10/25/23 10/25/23 History Mirtazapine 30 mg PO HS@2100 10/25/23 10/25/23 History NIFEdipine XL [Procardia XL] 60 mg PO DAILY@0800 10/25/23 10/25/23 History Sertraline [Zoloft] 100 mg PO DAILY@0800 10/25/23 10/25/23 History Allergies Allergy/AdvReac Type Severity Reaction Status Date / Time No Known Allergies Allergy Verified 10/25/23 17:01 Physical Exam Vitals: Vital Signs Pulse Pulse Resp BP BP Pulse Ox 10/26/23 04:00 108 H 18 143/86 100 10/26/23 02:00 72 20 10/25/23 22:45 72 20 141/80 93 L 10/25/23 21:30 83 12 104/61 100 10/25/23 21:20 86 12 95/49 100 10/25/23 20:40 108 H 12 97/55 100 10/25/23 20:30 90 12 91/58 100 10/25/23 20:10 96 12 109/61 100 10/25/23 20:00 90 12 119/65 100 10/25/23 19:50 90 13 119/65 100 10/25/23 19:40 92 12 125/67 100 10/25/23 19:38 92 12 125/70 100 10/25/23 18:43 85 20 90/58 100 10/25/23 18:40 18 10/25/23 18:35 82 84/48 100 10/25/23 18:15 79 16 113/60 100 10/25/23 17:22 80 16 107/67 96 10/25/23 16:52 12 10/25/23 16:30 80 16 68/47 100 10/25/23 16:28 16 10/25/23 16:21 85 20 65/50 100 10/25/23 15:55 85 20 89/61 100 10/25/23 15:48 90 18 103/40 100 10/25/23 14:34 90 16 80/63 Intake and Output 10/25/23 10/26/23 10/26/23 22:59 06:59 14:59 Output Total 1100 Balance -1100 Output: Urine 500 Stool 600 Other: Voiding Method Indwelling Catheter PHYSICAL EXAM: VITAL SIGNS: [As above] GENERAL: Alert and oriented x 1, sitting up in bed, confused, agitated, disoriented to year,oriented to person and family. HEENT: Normocephalic conjunctivae normal. eyes normal. NECK: Supple, no JVD. No thyroid enlargement. No LNs CARDIOVASCULAR: S1, S2 regular.. No murmur RESPIRATION: Equal air entry, breath sounds diminished in the bases. No rhonchi or crackles. No bronchial breathing. ABDOMEN: Soft, nontender . No guarding. Recent surgery, surgical incision site appears healed- ostomy present with watery greenish drainage LEGS: No edema. no swelling NERVOUS SYSTEM: Limited exam given current mental status,URIAS Skin: Warm and dry, no rash noted. Results CBC & Chem 7: 10/26/23 11:36 10/26/23 02:18 Labs: Abnormal Lab Results - Last 24 Hours (Table) 10/25/23 10/25/23 10/25/23 Range/Units 15:31 15:31 15:31 WBC 11.0 H (3.8-10.6) k/uL RBC (4.30-5.90) m/uL Hgb 12.7 L D (13.0-17.5) gm/dL Hct (39.0-53.0) % Neutrophils # 9.2 H (1.3-7.7) k/uL APTT 21.7 L (22.0-30.0) sec Potassium 5.4 H (3.5-5.1) mmol/L Chloride (98-107) mmol/L Carbon Dioxide 21 L (22-30) mmol/L BUN 66 H (9-20) mg/dL Creatinine 5.55 H (0.66-1.25) mg/dL Glucose 140 H (74-99) mg/dL Plasma Lactic Acid [place] (0.7-2.0) mmol/L Calcium 11.0 H (8.4-10.2) mg/dL Phosphorus 8.9 H (2.5-4.5) mg/dL Alkaline Phosphatase 136 H (38-126) U/L Creatine Kinase (55-170) U/L Troponin I (0.000-0.034) ng/mL Total Protein 9.1 H (6.3-8.2) g/dL Albumin 5.3 H (3.5-5.0) g/dL 10/25/23 10/25/23 10/25/23 Range/Units 15:31 15:31 15:31 WBC (3.8-10.6) k/uL RBC (4.30-5.90) m/uL Hgb (13.0-17.5) gm/dL Hct (39.0-53.0) % Neutrophils # (1.3-7.7) k/uL APTT (22.0-30.0) sec Potassium (3.5-5.1) mmol/L Chloride (98-107) mmol/L Carbon Dioxide (22-30) mmol/L BUN (9-20) mg/dL Creatinine (0.66-1.25) mg/dL Glucose (74-99) mg/dL Plasma Lactic Acid [place] 4.8 H* (0.7-2.0) mmol/L Calcium (8.4-10.2) mg/dL Phosphorus (2.5-4.5) mg/dL Alkaline Phosphatase (38-126) U/L Creatine Kinase 49 L (55-170) U/L Troponin I 1.250 H* (0.000-0.034) ng/mL Total Protein (6.3-8.2) g/dL Albumin (3.5-5.0) g/dL 10/25/23 10/25/23 10/26/23 Range/Units 18:54 22:48 02:18 WBC (3.8-10.6) k/uL RBC 2.83 L (4.30-5.90) m/uL Hgb 8.5 L D (13.0-17.5) gm/dL Hct 26.3 L (39.0-53.0) % Neutrophils # (1.3-7.7) k/uL APTT (22.0-30.0) sec Potassium (3.5-5.1) mmol/L Chloride (98-107) mmol/L Carbon Dioxide (22-30) mmol/L BUN (9-20) mg/dL Creatinine (0.66-1.25) mg/dL Glucose (74-99) mg/dL Plasma Lactic Acid [place] 3.8 H* 2.3 H* (0.7-2.0) mmol/L Calcium (8.4-10.2) mg/dL Phosphorus (2.5-4.5) mg/dL Alkaline Phosphatase (38-126) U/L Creatine Kinase (55-170) U/L Troponin I (0.000-0.034) ng/mL Total Protein (6.3-8.2) g/dL Albumin (3.5-5.0) g/dL 10/26/23 Range/Units 02:18 WBC (3.8-10.6) k/uL RBC (4.30-5.90) m/uL Hgb (13.0-17.5) gm/dL Hct (39.0-53.0) % Neutrophils # (1.3-7.7) k/uL APTT (22.0-30.0) sec Potassium (3.5-5.1) mmol/L Chloride 112 H (98-107) mmol/L Carbon Dioxide 17 L (22-30) mmol/L BUN 62 H (9-20) mg/dL Creatinine 4.96 H (0.66-1.25) mg/dL Glucose 110 H (74-99) mg/dL Plasma Lactic Acid [place] (0.7-2.0) mmol/L Calcium 8.1 L (8.4-10.2) mg/dL Phosphorus 6.8 H (2.5-4.5) mg/dL Alkaline Phosphatase (38-126) U/L Creatine Kinase (55-170) U/L Troponin I (0.000-0.034) ng/mL Total Protein 5.7 L (6.3-8.2) g/dL Albumin 3.1 L (3.5-5.0) g/dL Assessment and Plan Assessment: Acute renal failure secondary to ATN related to hypotension, urinary retention, medications- NIYAH inhibitor, metformin on hold Metabolic acidosis secondary to #1 Possible acute UTI, original UA not available, UA with reflex to culture reordered. 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 Lactic acidosis resolved with IV fluid hydration Acute blood loss anemia, in a patient with recent history of abdominal surgery at [facility] Acute renal failure Diabetes mellitus Hypertension Hyperlipidemia Sleep apnea Plan: Continue on current medication regime, monitoring and symptomatic treatment. UA with culture , repeat troponin ordered. stat repeat CBC ordered. Nephrology consult in place, recommendations pending. Bicarb drip ordered. neurology consult initiated. Seizure precautions ordered. Close monitoring of hemoglobin, renal function, bicarb with repeat labs ordered for a.m. The impression and plan of care has been dictated as directed. : I performed a history and examination of this patient, discussed the same with the dictator. I agree with the dictator's note ,documented as a scribe. Any additional findings or plans will be noted.
[2023-10-26 16:53] LABS: HCT 25.7 % (39.0-53.0); HGB 8.3 gm/dL (13.0-17.5); Hypochromasia Moderate; MCH 29.8 pg (25.0-35.0); MCHC 32.2 g/dL (31.0-37.0); MCV 92.3 fL (80.0-100.0); Mean Platelet Volume 8.1; Platelet Count 219 k/uL (150-450); RBC 2.78 m/uL (4.30-5.90); RDW 14.7 % (11.5-15.5); WBC 9.9 k/uL (3.8-10.6)
[2023-10-26 16:55] LABS: Glucose,Whole Blood 99 mg/dL (70-110)
[2023-10-26 21:15] LABS: Glucose,Whole Blood 92 mg/dL (70-110)
[2023-10-27 07:51] LABS: Basophils % (A) 0 %; Eosinophils # (A) 0.1 k/uL (0-0.7); Eosinophils % (A) 1 %; HCT 24.4 % (39.0-53.0); Hypochromasia Marked; Lymphocytes # (A) 1.1 k/uL (1.0-4.8); Lymphocytes % (A) 12 %; MCH 30.5 pg (25.0-35.0); MCHC 32.7 g/dL (31.0-37.0); MCV 93.4 fL (80.0-100.0); Monocytes # (A) 0.8 k/uL (0-1.0); Monocytes % (A) 8 %; Neutrophils # (A) 6.9 k/uL (1.3-7.7); Neutrophils % (A) 77 %; Platelet Count 200 k/uL (150-450); Poikilocytosis Slight; RBC 2.61 m/uL (4.30-5.90); RDW 14.6 % (11.5-15.5)
[2023-10-27 08:04] LABS: African American GFR (CKD) 26 (>60 ml/min/1.73 sqM); Anion Gap 10 mmol/L; Blood Urea Nitrogen 51 mg/dL (9-20); Calcium 8.8 mg/dL (8.4-10.2); Carbon Dioxide 17 mmol/L (22-30); Chloride 113 mmol/L (98-107); Glucose 73 mg/dL (74-99); Non-African American GFR(CKD) 23 (>60 ml/min/1.73 sqM); Potassium 3.9 mmol/L (3.5-5.1); Sodium 140 mmol/L (137-145)
--- NOTE | 2023-10-27 08:08 | P.CNNES ---
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 Patient not able to provide any history. Patient's was present, who provided with a detailed history. Patient's mentioned that patient was recently hospitalized at [facility] for almost a month, after he had blood in the stools. He was in the ICU for 3 weeks where he coded 5 times. Patient required 45 units of packed blood cells. He underwent complete col ectomy with ileostomy. While he was in the ICU, patient had a new onset seizure. He was not discharged on seizure medication. Patient also developed renal insufficiency while he was in the hospital. He was just discharged to the [facility] on 10/23/2023. Yesterday he was getting evaluated by the PT, OT when he started having shortness of breath, his saturation dropped down to 82%, and he had his second seizure for which he is transferred to [facility]. He did not bite his tongue, and patient's does not know if he lost control of urine. Patient's mentions that prior to getting sick in [facility], he was completely conversational, and would hold normal conversation. He has developed significant mental status change since he had the second seizure. As per EMS flowsheet, when they arrived on scene, patient was laying in hospital bed in the [facility]. The nursing staff states patient had complained of being unable to urinate shortly before becoming lethargic. Patient was alert to painful stimuli upon EMS arrival. Patient's vitals at the scene was blood pressure 70/28, which came down to 66/39, pulse rate 86, respirations 16 saturation 93%. Blood glucose was not checked. EKG shows sinus rhythm, chest x-ray revealed no acute process. CT head revealed no acute intracranial abnormality. 2 cm area of encephalomalacia within the left occipital parietal lobe likely related to remote infarct. I personally reviewed CT head, agree with the findings. Apparently this area of ischemia involving the left occipital lobe is somehow new since his MRI from 01/13/2022 where it was not present, although appears definitely chronic at this time. Evidence of old lacunar infarct involving the left posterior periventricular white matter. Visualized paranasal sinuses are clear. Ultrasound of the abdomen showed multiple right-sided renal cysts. No hydronephrosis or shadowing renal stones otherwise seen. Blood test shows WBC 11.0, hemoglobin 12.7, platelets 352. PT PTT normal, sodium is normal potassium 5.4. BUN 66, creatinine 5.55. Lactate 4.8, hepatic panel is normal, CK is 49, troponin was elevated 1.250. TSH is normal. UA is negative. Urine drug screen negative. Repeat BUN is 62, creatinine 4.96. And hemoglobin 8.5. Troponin is 0.334, improved. UA shows moderate leukocyte esterase, > 182 RBC and 10 WBC. Negative nitrite. Blood cultures so far negative. Patient has been seen by myself on 08/21/2021 for acute left thalamic hemorrhage likely hypertensive. Patient also had acute ischemic stroke left basal ganglia measuring 2.4 x 1.1 cm, possible embolic, less likely from small vessel disease. 2D echo reported small PFO versus ASD. Hypertension, diabetes and medication noncompliance at that time. Patient was transferred [place] [facility] [place] acute left thalamic hemorrhage. He was treated conservatively. Patient after stabilization was transferred to [facility] in [place] for rehabilitation where he stayed for 2 months. His mentation completely recovered although he has slight speech deficit after CVA. His right arm is weaker than the right leg. He is able to walk with a cane and using an AFO of the right foot. Since his recent hospitalization for colectomy, he has not been able to walk because of weakness therefore he was in [facility] for rehabilitation. Since patient had the stroke, he is completely compliant with medication. He does take aspirin 81 mg daily. Patient has history of hypertension for 12 years. Patient has diabetes for 12 years. He has never smoked. Review of Systems Constitutional: Reports fever, Reports weight loss, Denies chills Eyes: denies blurred vision, denies diplopia, denies pain, denies loss of vision Ears: deny: decreased hearing, ear discharge Ears, nose, mouth and throat: Denies headache, Denies sore throat, Denies vertigo Cardiovascular: Reports shortness of breath, Denies chest pain Respiratory: Denies cough, Denies excessive sputum Gastrointestinal: Denies abdominal pain, Denies diarrhea, Denies nausea, Denies vomiting Genitourinary: Denies incontinence Musculoskeletal: Denies low back pain, Denies myalgias, Denies neck pain Integumentary: Denies pruritus, Denies rash Neurological: Reports as per HPI Psychiatric: Reports anxiety, Reports depression Endocrine: Reports weight change, Denies fatigue Hematologic/Lymphatic: Denies easy bleeding, Denies easy bruising Past Medical History Past Medical History: CVA/TIA, Diabetes Mellitus, Hyperlipidemia, Hypertension, Sleep Apnea/CPAP/BIPAP Additional Past Medical History / Comment(s): uses CPAP, CEREBRAL BLEED 08/19/22 RIGHT SIDE WEAKNESS History of Any Multi-Drug Resistant Organisms: None Reported Past Surgical History: Heart Catheterization, Hernia Repair Additional Past Surgical History / Comment(s): COLONOSCOPY Past Anesthesia/Blood Transfusion Reactions: No Reported Reaction Past Psychological History: Depression Smoking Status: Former smoker Past Alcohol Use History: Occasional Past Drug Use History: None Reported - Past Family History Sister(s) Family Medical History: Cancer Additional Family Medical History / Comment(s): 1 SISTER FROM ESOPHAGEL CANCER. 1 SISTER HAD BREAST CANCER Medications and Allergies Home Medications Medication Instructions Recorded Confirmed Type Aspirin EC [Ecotrin Low Dose] 81 mg PO DAILY@0800 12/20/21 10/25/23 History Atorvastatin [Lipitor] 80 mg PO DAILY@0800 12/20/21 10/25/23 History Docusate [Colace] 100 mg PO BID@0800,1700 12/20/21 10/25/23 History Gabapentin [Neurontin] 100 mg PO TID@0600,1200,1700 12/20/21 10/25/23 History Pantoprazole [Protonix] 40 mg PO DAILY@0800 12/20/21 10/25/23 History lisinopriL [Zestril] 20 mg PO DAILY@0800 12/20/21 10/25/23 History metFORMIN HCL 500 mg PO BID@0800,1700 12/20/21 10/25/23 History ondansetron HCL [Zofran] 8 mg PO TID@0800,1200,1700 12/20/21 10/25/23 History Baclofen 10 mg PO QID@08,12,17,21 10/25/23 10/25/23 History Cholestyramine (with Sugar) 4 gm PO DAILY PRN 10/25/23 10/25/23 History [Cholestyramine Powder] Dicyclomine [Bentyl] 10 mg PO TID@0800,1200,1700 10/25/23 10/25/23 History Loperamide [Imodium] 4 mg PO QID@00,06,12,18 10/25/23 10/25/23 History Mirtazapine 30 mg PO HS@2100 10/25/23 10/25/23 History NIFEdipine XL [Procardia XL] 60 mg PO DAILY@0800 10/25/23 10/25/23 History Sertraline [Zoloft] 100 mg PO DAILY@0800 10/25/23 10/25/23 History Allergies Allergy/AdvReac Type Severity Reaction Status Date / Time No Known Allergies Allergy Verified 10/25/23 17:01 Physical Examination - Vital Signs Vital Signs: Vital Signs Temp Pulse Pulse Resp BP BP Pulse Ox 10/26/23 19:02 86 18 104/70 100 10/26/23 17:39 72 20 100 10/26/23 11:42 93 L 10/26/23 11:31 98.7 F 105 H 18 93/61 93 L 10/26/23 04:00 108 H 18 143/86 100 10/26/23 02:00 72 20 10/25/23 22:45 72 20 141/80 93 L 10/25/23 21:30 83 12 104/61 100 10/25/23 21:20 86 12 95/49 100 10/25/23 20:40 108 H 12 97/55 100 10/25/23 20:30 90 12 91/58 100 10/25/23 20:10 96 12 109/61 100 10/25/23 20:00 90 12 119/65 100 10/25/23 19:50 90 13 119/65 100 Intake and Output 10/26/23 10/26/23 10/26/23 06:59 14:59 22:59 Output Total 1100 Balance -1100 Output: Urine 500 Stool 600 Other: Voiding Method Indwelling Catheter Patient is a middle aged Afro-[place] male, who appears somewhat restless, turning his head left to right although prefers keeping his head to the left where his is present and keeps on watching her. Patient is obviously encephalopathic. Patient knows it is the month of October, could not tell the year. He could not tell what city or state he is in. More [place] is slightly perseverating. He believes Mr. Cardona is the president. Speech appears clear, but very limited. Attention, concentration is significantly limited and fund of knowledge difficult to assess because of mentation. On cranial nerve examination, pupils are equal, round and reacting to light, visual wu are full on confrontation, with no neglect on double simultaneous stimulation. Extraocular muscles are intact with no nystagmus. Patient has obvious right facial asymmetry. This is perhaps old from previous stroke. His tongue protrudes to the midline. Palatal elevation and sensation normal, hearing appears normal and shoulder shrug decreased on the right, facial sensation difficult to assess. On muscle strength testing, patient is hemiplegic on the right side from pre vious stroke. His right arm is weaker than the leg. He is able to lift his right leg off the bed and give some resistance at least 3+. However his ankle is very weak. The left arm and the left leg is normal. Deep tendon reflexes are (right/left) biceps 2/1, brachioradialis 2/1, plantar is flat on the right side, down on the left. Sensory to touch is equal, although he would not cooperate for checking for neglect because of his mentation. Cerebellar function showed no ataxia for [id number] testing on the left side, cannot perform on the right because of hemiplegia. Tone is decreased on the right and bulk of muscles normal. Gait deferred.. On general examination, there is no carotid bruit or murmur, S1-S2 audible. Chest is clear on consultation. Abdomen is soft nontender. No organomegaly, bowel sounds present. Peripheral pulses are present. No peripheral edema. Results - Laboratory Findings CBC and BMP: 10/26/23 16:12 10/26/23 02:18 Abnormal Lab Findings: Abnormal Labs 10/25/23 10/25/23 10/25/23 15:31 15:31 15:31 WBC 11.0 H RBC Hgb 12.7 L D Hct Neutrophils # 9.2 H Lymphocytes # APTT 21.7 L Potassium 5.4 H Chloride Carbon Dioxide 21 L BUN 66 H Creatinine 5.55 H Glucose 140 H POC Glucose (mg/dL) Plasma Lactic Acid [place] Calcium 11.0 H Phosphorus 8.9 H Alkaline Phosphatase 136 H Creatine Kinase Troponin I Total Protein 9.1 H Albumin 5.3 H Urine Protein Urine Glucose (UA) Urine Blood Ur Leukocyte Esterase Urine RBC Urine WBC Uric Acid Crystals Triple Phos Crystals Amorphous Sediment Urine Bacteria Hyaline Casts Urine Mucus 10/25/23 10/25/23 10/25/23 15:31 15:31 15:31 WBC RBC Hgb Hct Neutrophils # Lymphocytes # APTT Potassium Chloride Carbon Dioxide BUN Creatinine Glucose POC Glucose (mg/dL) Plasma Lactic Acid [place] 4.8 H* Calcium Phosphorus Alkaline Phosphatase Creatine Kinase 49 L Troponin I 1.250 H* Total Protein Albumin Urine Protein Urine Glucose (UA) Urine Blood Ur Leukocyte Esterase Urine RBC Urine WBC Uric Acid Crystals Triple Phos Crystals Amorphous Sediment Urine Bacteria Hyaline Casts Urine Mucus 10/25/23 10/25/23 10/25/23 17:02 18:54 22:48 WBC RBC Hgb Hct Neutrophils # Lymphocytes # APTT Potassium Chloride Carbon Dioxide BUN Creatinine Glucose POC Glucose (mg/dL) Plasma Lactic Acid [place] 3.8 H* 2.3 H* Calcium Phosphorus Alkaline Phosphatase Creatine Kinase Troponin I Total Protein Albumin Urine Protein 1+ H Urine Glucose (UA) Urine Blood Ur Leukocyte Esterase Urine RBC Urine WBC Uric Acid Crystals Occasional H Triple Phos Crystals Amorphous Sediment Moderate H Urine Bacteria Occasional H Hyaline Casts 9 H Urine Mucus Many H 10/26/23 10/26/23 10/26/23 02:18 02:18 11:36 WBC RBC 2.83 L 2.91 L Hgb 8.5 L D 8.5 L Hct 26.3 L 26.7 L Neutrophils # 8.5 H Lymphocytes # 0.8 L APTT Potassium Chloride 112 H Carbon Dioxide 17 L BUN 62 H Creatinine 4.96 H Glucose 110 H POC Glucose (mg/dL) Plasma Lactic Acid [place] Calcium 8.1 L Phosphorus 6.8 H Alkaline Phosphatase Creatine Kinase Troponin I Total Protein 5.7 L Albumin 3.1 L Urine Protein Urine Glucose (UA) Urine Blood Ur Leukocyte Esterase Urine RBC Urine WBC Uric Acid Crystals Triple Phos Crystals Amorphous Sediment Urine Bacteria Hyaline Casts Urine Mucus 10/26/23 10/26/23 10/26/23 12:20 14:03 16:12 WBC RBC 2.78 L Hgb 8.3 L Hct 25.7 L Neutrophils # Lymphocytes # APTT Potassium Chloride Carbon Dioxide BUN Creatinine Glucose POC Glucose (mg/dL) 115 H Plasma Lactic Acid [place] Calcium Phosphorus Alkaline Phosphatase Creatine Kinase Troponin I Total Protein Albumin Urine Protein 1+ H Urine Glucose (UA) 1+ H Urine Blood Moderate H Ur Leukocyte Esterase Moderate H Urine RBC >182 H Urine WBC 10 H Uric Acid Crystals Triple Phos Crystals Moderate H Amorphous Sediment Urine Bacteria Rare H Hyaline Casts Urine Mucus Rare H 10/26/23 16:12 WBC RBC Hgb Hct Neutrophils # Lymphocytes # APTT Potassium Chloride Carbon Dioxide BUN Creatinine Glucose POC Glucose (mg/dL) Plasma Lactic Acid [place] Calcium Phosphorus Alkaline Phosphatase Creatine Kinase Troponin I 0.334 H* Total Protein Albumin Urine Protein Urine Glucose (UA) Urine Blood Ur Leukocyte Esterase Urine RBC Urine WBC Uric Acid Crystals Triple Phos Crystals Amorphous Sediment Urine Bacteria Hyaline Casts Urine Mucus Assessment and Plan Assessment: * Seizure, likely due to hemodynamic and metabolic dysfunction. Patient was very hypotensive with blood pressure 70/28 likely triggering the seizure. Perhaps acute on chronic renal insufficiency, hyperkalemia may be contributing to the seizure. * Acute renal failure * Hyperkalemia * Lactic acidosis * Elevated troponin * Anemia with recent history of massive GI bleed status post multiple packed RBC transfusion and colectomy with ileostomy. 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 * Evidence of chronic left occipital lobe CVA which is new since his most recent brain imaging of MRI 01/14/2022 * Hypertension * Diabetes, well-controlled, as last A1c 5.9 on 07/24/2023 * Previous 2D echo reported small PFO versus ASD. Cardiology following. Plan: * Patient's seizure is likely provoked due to reasons mentioned above. We will check EEG to rule out any epileptiform activity. Hold off on antiepileptic medication unless EEG shows any obvious epileptiform activity. * Patient has elevated cardiac enzymes. Cardiology has been consulted. Discussed with the nurse, to inform cardiology. Consider starting aspirin if no medical contraindication. We will defer to IM/cardiology because of recent massive GI bleed, and currently patient's hemoglobin has dropped from 12.7-8.5. * Nephrology on board for acute renal failure. * Patient has history of questionable PFO VS ASD. Cardiology on board. Uncertain if patient had TOMASA performed in the past. Will discuss with the cardiology. * Hemoglobin A1c 5.9 on 07/24/2023 * Lipid panel with cholesterol 115, LDL 49, HDL 51, triglycerides 70 on 07/24/2023. Continue Lipitor 80 mg daily. * Other medical management as per IM and other specialties. * Neurology will follow clinically * Thank you for the consult. Time with Patient: Greater than 30
[2023-10-27 08:43] LABS: Glucose,Whole Blood 68 mg/dL (70-110)
[2023-10-27 09:49] LABS: Glucose,Whole Blood 79 mg/dL (70-110)
[2023-10-27] MEDS: DEXTROSE 50% SYRINGE 50 ML IVP PRN (09:50)
[2023-10-27] MEDS: CEFEPIME 2 GM in SODIUM CHLORIDE 0.9% 100 ML IVPB STA (11:34)
--- NOTE | 2023-10-27 11:37 | P.CRDCN ---
History of Present Illness History of present illness: HISTORY OF PRESENT ILLNESS: This is a 63-year-old female with a past medical history significant for hypertension, hyperlipidemia, diabetes, CVA, and former nicotine dependence. Patient does not follow with a director of housing. We have been asked to see the patient in consultation for elevated troponins. Patient examined at the bedside in the emergency room. Patient's family is at the bedside. Patient was recently hospitalized at [facility] due to significant GI bleeding requiring more than 10 units of packed RBCs. Patient also underwent colon resection end ileostomy placement. Patient was discharged to [facility]. Patient's family states he was only there for less than 2 days when he began to have shortness of breath, low blood pressure, and confusion. Patient was jonna t to the hospital for further evaluation. Patient currently denies any chest pain or pressure. He denies any shortness of breath. DIAGNOSTICS: - EKG reveals sinus mechanism with no signs of acute ischemia. - Chest xray negative for acute process. - Laboratory data: WBC 9.9. Hemoglobin 8.3. Platelet count 219. Sodium 140. Potassium 4.2. BUN 62. Creatinine 4.96. Lactic acid 2.3. Troponin 1.250. 0.334. 0.277. - Current home cardiac medications include Procardia XL 60 mg daily, lisinopril 20 mg daily, atorvastatin 80 mg daily, and aspirin 81 mg daily. - Most recent echocardiogram obtained in July 2021 revealed ejection fraction 50 to 55%, mild MR, mild TR, possible PFO versus ASD. - Cardiac catheterization history: March [address] Mir revealing normal coronary arteries and normal left ventricular end-diastolic pressure REVIEW OF SYSTEMS: At the time of my exam: CONSTITUTIONAL: Denies fever or chills. HEENT: Denies blurred vision, vision changes, or eye pain. Denies hemoptysis CARDIOVASCULAR: Denies chest pain. Denies orthopnea. Denies PND. Denies palpitations RESPIRATORY: Denies shortness of breath. GASTROINTESTINAL: Denies abdominal pain. Denies nausea or vomiting. HEMATOLOGIC: Denies bleeding disorders. GENITOURINARY: Denies any blood in urine. SKIN: Denies pruitis. Denies rash. PHYSICAL EXAM: VITAL SIGNS: Reviewed. GENERAL: Well-developed in no acute distress. HEENT: Head is normocephalic. Pupils are equal, round. Sclerae anicteric. Mucous membranes of the mouth are moist. Neck supple. No JVD or thyromegaly LUNGS: Respirations even and unlabored. Lungs essentially clear to auscultation bilaterally. HEART: Regular rate and rhythm. S1 and S2 heard. ABDOMEN: Soft. Nondistended. Nontender. EXTREMITIES: Normal range of motion. No clubbing or cyanosis. Peripheral pulses intact. No lower extremity edema NEUROLOGIC: Awake and alert. Oriented x 3. ASSESSMENT: Altered mental status Hypotension, improved with IV fluid hydration Acute renal failure Abnormal troponins, not suggestive of acute coronary syndrome, likely secondary to above Acute anemia, hemoglobin 12.7 on admission, now 8.3, possible hemodilution Recent colon resection with ostomy creation at [facility] Recent GI bleeding requiring more than 10 units packed RBCs History of seizure disorder PLAN: An acute coronary event has been ruled out Obtain 2D echo to assess cardiac structure and function Continue to monitor blood pressure Continue telemetry monitoring Further recommendations pending patient course Nurse practitioner note has been reviewed by physician. Signing provider agrees with the documented findings, assessment, and plan of care documented by LEADED GLASS INSTALLER as a scribe. Past Medical History Past Medical History: CVA/TIA, Diabetes Mellitus, Hyperlipidemia, Hypertension, Sleep Apnea/CPAP/BIPAP Additional Past Medical History / Comment(s): uses CPAP, CEREBRAL BLEED 08/19/22 RIGHT SIDE WEAKNESS History of Any Multi-Drug Resistant Organisms: None Reported Past Surgical History: Heart Catheterization, Hernia Repair Additional Past Surgical History / Comment(s): COLONOSCOPY Past Anesthesia/Blood Transfusion Reactions: No Reported Reaction Past Psychological History: Depression Smoking Status: Former smoker Past Alcohol Use History: Occasional Past Drug Use History: None Reported - Past Family History Sister(s) Family Medical History: Cancer Additional Family Medical History / Comment(s): 1 SISTER FROM ESOPHAGEL CANCER. 1 SISTER HAD BREAST CANCER Medications and Allergies Home Medications Medication Instructions Recorded Confirmed Type Aspirin EC [Ecotrin Low Dose] 81 mg PO DAILY@0800 12/20/21 10/25/23 History Atorvastatin [Lipitor] 80 mg PO DAILY@0800 12/20/21 10/25/23 History Docusate [Colace] 100 mg PO BID@0800,1700 12/20/21 10/25/23 History Gabapentin [Neurontin] 100 mg PO TID@0600,1200,1700 12/20/21 10/25/23 History Pantoprazole [Protonix] 40 mg PO DAILY@0800 12/20/21 10/25/23 History lisinopriL [Zestril] 20 mg PO DAILY@0800 12/20/21 10/25/23 History metFORMIN HCL 500 mg PO BID@0800,1700 12/20/21 10/25/23 History ondansetron HCL [Zofran] 8 mg PO TID@0800,1200,1700 12/20/21 10/25/23 History Baclofen 10 mg PO QID@08,12,17,21 10/25/23 10/25/23 History Cholestyramine (with Sugar) 4 gm PO DAILY PRN 10/25/23 10/25/23 History [Cholestyramine Powder] Dicyclomine [Bentyl] 10 mg PO TID@0800,1200,1700 10/25/23 10/25/23 History Loperamide [Imodium] 4 mg PO QID@00,06,12,18 10/25/23 10/25/23 History Mirtazapine 30 mg PO HS@2100 10/25/23 10/25/23 History NIFEdipine XL [Procardia XL] 60 mg PO DAILY@0800 10/25/23 10/25/23 History Sertraline [Zoloft] 100 mg PO DAILY@0800 10/25/23 10/25/23 History Allergies Allergy/AdvReac Type Severity Reaction Status Date / Time No Known Allergies Allergy Verified 10/25/23 17:01 Physical Exam Vitals: Vital Signs Temp Pulse Resp BP Pulse Ox 10/27/23 06:47 74 16 93/60 100 10/27/23 03:59 95 16 129/67 98 10/26/23 23:40 98.2 F 98 18 133/68 100 10/26/23 19:02 86 18 104/70 100 10/26/23 17:39 72 20 100 10/26/23 11:42 93 L 10/26/23 11:31 98.7 F 105 H 18 93/61 93 L Intake and Output 10/26/23 10/27/23 10/27/23 22:59 06:59 14:59 Output Total 1700 Balance -1700 Output: Urine 1700 Results 10/27/23 06:12 10/27/23 06:12 Cardiac Enzymes 10/26/23 10/26/23 Range/Units 16:12 21:35 Troponin I 0.334 H* 0.277 H* (0.000-0.034) ng/mL CBC 10/26/23 10/26/23 Range/Units 11:36 16:12 WBC 10.1 9.9 (3.8-10.6) k/uL RBC 2.91 L 2.78 L (4.30-5.90) m/uL Hgb 8.5 L 8.3 L (13.0-17.5) gm/dL Hct 26.7 L 25.7 L (39.0-53.0) % Plt Count 243 219 (150-450) k/uL Current Medications Generic Name Dose Route Start Last Admin Trade Name Freq PRN Reason Stop Dose Admin Dextrose/Water 25 ml 10/26/23 10:30 Dextrose 50% Syringe 50 Ml IVP PER PROTOCOL PRN Hypoglycemia Protocol Dextrose/Water 50 ml 10/26/23 10:30 Dextrose 50% Syringe 50 Ml IVP PER PROTOCOL PRN Hypoglycemia Protocol Sodium Chloride 1,000 mls @ 130 mls/hr 10/25/23 17:00 10/27/23 00:12 Saline 0.9% IV 130 mls/hr .[id number] ARELI Administration Insulin Aspart 0 unit 10/26/23 12:30 10/26/23 21:39 Insulin Aspart (Novolog) 100 Unit/Ml Vial SQ Not Given ACHS ARELI Protocol Lorazepam 0.5 mg 10/26/23 13:51 10/27/23 03:58 Lorazepam 2 Mg/Ml Inj IV 0.5 mg Q8H PRN Administration Anxiety Morphine Sulfate 4 mg 10/25/23 16:49 10/27/23 03:58 Morphine Sulfate 4 Mg/Ml Syringe IV 4 mg Q4HR PRN Administration Severe Pain (Scale 7 to 10) Naloxone HCl 0.2 mg 10/25/23 16:49 Naloxone 0.4 Mg/Ml 1 Ml Vial IV Q2M PRN Opioid Reversal Ondansetron HCl 4 mg 10/25/23 16:49 Ondansetron 4 Mg/2 Ml Vial IVP Q8HR PRN Nausea And Vomiting Pantoprazole Sodium 40 mg 10/26/23 11:00 10/26/23 11:35 Pantoprazole 40 Mg/10 Ml Vial IVP 40 mg DAILY ARELI Administration Intake and Output 10/26/23 10/27/23 10/27/23 22:59 06:59 14:59 Output Total 1700 Balance -1700 Output: Urine 1700 10/26/23 16:12 10/26/23 02:18
[2023-10-27 12:44] LABS: Glucose,Whole Blood 134 mg/dL (70-110)
--- NOTE | 2023-10-27 12:49 | P.PN ---
Subjective Patient is seen for follow-up for acute kidney injury. Renal function has improved significantly with IV hydration and Leach catheter placement for urine retention. Mentation has improved as well. Serum creatinine decreased to 2.8 from 5.5 on initial admission. Objective - Vital Signs Vital signs: Vital Signs Temp 98.2 F 10/26/23 23:40 Pulse 74 10/27/23 06:47 Resp 16 10/27/23 06:47 BP 93/60 10/27/23 06:47 Pulse Ox 100 10/27/23 06:47 FiO2 Intake & Output 10/26/23 10/27/23 10/27/23 18:59 06:59 18:59 Output Total 1700 Balance -1700 Output: Urine 1700 - Exam Patient is awake, confused. Not in any acute distress. Mentation is improved Examination of the heart S1 and S2 Examination of the lungs bilateral breath sounds are heard Abdomen is soft nontender, ileostomy noted Examination of lower extremity shows no evidence of edema Patient is moving all 4 extremities - Labs CBC & Chem 7: 10/27/23 06:12 10/27/23 06:12 Labs: Abnormal Lab Results - Last 24 Hours (Table) 10/25/23 10/26/23 10/26/23 Range/Units 17:02 14:03 16:12 RBC 2.78 L (4.30-5.90) m/uL Hgb 8.3 L (13.0-17.5) gm/dL Hct 25.7 L (39.0-53.0) % Chloride (98-107) mmol/L Carbon Dioxide (22-30) mmol/L BUN (9-20) mg/dL Creatinine (0.66-1.25) mg/dL Glucose (74-99) mg/dL POC Glucose (mg/dL) (70-110) mg/dL Troponin I (0.000-0.034) ng/mL Urine Protein 1+ H 1+ H (Negative) Urine Glucose (UA) 1+ H (Negative) Urine Blood Moderate H (Negative) Ur Leukocyte Esterase Moderate H (Negative) Urine RBC >182 H (0-5) /hpf Urine WBC 10 H (0-5) /hpf Uric Acid Crystals Occasional H (None) /hpf Triple Phos Crystals Moderate H (None) /hpf Amorphous Sediment Moderate H (None) /hpf Urine Bacteria Occasional H Rare H (None) /hpf Hyaline Casts 9 H (0-2) /lpf Urine Mucus Many H Rare H (None) /hpf 10/26/23 10/26/23 10/27/23 Range/Units 16:12 21:35 06:12 RBC 2.61 L (4.30-5.90) m/uL Hgb 8.0 L (13.0-17.5) gm/dL Hct 24.4 L (39.0-53.0) % Chloride (98-107) mmol/L Carbon Dioxide (22-30) mmol/L BUN (9-20) mg/dL Creatinine (0.66-1.25) mg/dL Glucose (74-99) mg/dL POC Glucose (mg/dL) (70-110) mg/dL Troponin I 0.334 H* 0.277 H* (0.000-0.034) ng/mL Urine Protein (Negative) Urine Glucose (UA) (Negative) Urine Blood (Negative) Ur Leukocyte Esterase (Negative) Urine RBC (0-5) /hpf Urine WBC (0-5) /hpf Uric Acid Crystals (None) /hpf Triple Phos Crystals (None) /hpf Amorphous Sediment (None) /hpf Urine Bacteria (None) /hpf Hyaline Casts (0-2) /lpf Urine Mucus (None) /hpf 10/27/23 10/27/23 10/27/23 Range/Units 06:12 08:42 12:42 RBC (4.30-5.90) m/uL Hgb (13.0-17.5) gm/dL Hct (39.0-53.0) % Chloride 113 H (98-107) mmol/L Carbon Dioxide 17 L (22-30) mmol/L BUN 51 H (9-20) mg/dL Creatinine 2.85 H (0.66-1.25) mg/dL Glucose 73 L (74-99) mg/dL POC Glucose (mg/dL) 68 L 134 H (70-110) mg/dL Troponin I (0.000-0.034) ng/mL Urine Protein (Negative) Urine Glucose (UA) (Negative) Urine Blood (Negative) Ur Leukocyte Esterase (Negative) Urine RBC (0-5) /hpf Urine WBC (0-5) /hpf Uric Acid Crystals (None) /hpf Triple Phos Crystals (None) /hpf Amorphous Sediment (None) /hpf Urine Bacteria (None) /hpf Hyaline Casts (0-2) /lpf Urine Mucus (None) /hpf Microbiology - Last 24 Hours (Table) 10/25/23 15:20 Blood Culture - Preliminary Blood 10/25/23 15:31 Blood Culture - Preliminary Blood Assessment and Plan Assessment: 1. Acute kidney injury ATN secondary to hypotension. Possible underlying urine retention as well. Currently with indwelling Leach catheter. Noe inhibitors are on hold. Ultrasound shows no evidence of obstructive uropathy. Multiple cysts noted on the right kidney. UA shows 1+ protein no blood on 10/25/2023. Repeat urine specimen on was likely a Leach specimen with moderate blood noted. 2. Mental status changes related to hypotension and possibly related to adva nced acute kidney injury. Renal function is currently improving therefore I will hold off on dialysis. 3. Anion gap metabolic acidosis secondary to acute kidney injury and lactic acidosis 4. Anemia with recent history of massive GI bleed status post multiple packed RBCs transfusion and abdominal surgery with resection of large portion of the colon and ileostomy Plan: Continue with IV fluids Change to IV bicarb Continue with Leach catheter Continue to hold off on NOE inhibitor's and avoid any other nephrotoxic agents. Renal function is improving therefore I will hold off on renal replacement therapy at this time
--- NOTE | 2023-10-27 13:24 | P.PN ---
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 at bedside reports she was told by Kevin that patient had a seizure. On admission, Leach catheter was placed with immediate return of 500 mL of urine followed by another 600ml. Hypotensive on admission with lowest blood pressure recorded as 65/50, heart rate 85, respiratory rate 20, maintaining O2 sats of 100% on 4 L nasal cannula, temper ature pending. Received multiple fluid boluses and currently receiving IV fluid hydration of saline 130 MLS per hour. Serum creatinine was 5.5, currently 4.96, baseline creatinine 1. Bicarb 17, bicarb drip ordered. Chest x-ray reported no acute cardiopulmonary disease/process. Brain CT reported no acute intracranial abnormality, 2 cm area of encephalomalacia within the left occipital parietal lobe likely related to remote infarct. Denies chest pain, palpitations .troponin elevated 1.250, repeat level ordered. 10/27/2023 troponins 1.250, 0.334, 0.277 , evaluated by cardiology, echo ordered. Evaluated by neurology, EEG pending. cefepime initiated per infectious disease. UA reporting moderate triple phosphate crystals, greater than 10 urine WBCs, moderate leukocytes, negative nitrates, moderate blood, 1+ close, 1+ protein. Sensorium significantly improved.Maintained on IV bicarb, bicarb remains at 17 and Leach catheter secondary to urinary retention. Creatinine improving, decreased to 2.85. hemoglobin 8, platelets 200. Reticulocyte count within normal limits, 1. No bleeding. denies abdominal pain. Blood pressures soft. Objective - Vital Signs Vital signs: Vital Signs Temp 98.2 F 10/26/23 23:40 Pulse 74 10/27/23 06:47 Resp 16 10/27/23 06:47 BP 93/60 10/27/23 06:47 Pulse Ox 100 10/27/23 06:47 FiO2 Intake & Output 10/26/23 10/27/23 10/27/23 18:59 06:59 18:59 Output Total 1700 Balance -1700 Output: Urine 1700 - Exam PHYSICAL EXAM: VITAL SIGNS: [As above] GENERAL: Alert and oriented x 2-3, sitting up in bed, conversing appropriately, at bedside HEENT: Normocephalic conjunctivae normal. eyes normal. NECK: Supple, no JVD. CARDIOVASCULAR: S1, S2 regular.No murmur RESPIRATION: Equal air entry, breath sounds diminished in the bases. No rhonchi or crackles. ABDOMEN: Soft, nontender . No guarding. Recent surgery, surgical incision site appears healed- ostomy present with greenish drainage LEGS: No edema. no swelling NERVOUS SYSTEM: Cranial nerves II through XII grossly intact. Skin: Warm and dry, no rash noted. - Labs CBC & Chem 7: 10/27/23 06:12 10/27/23 06:12 Labs: Abnormal Lab Results - Last 24 Hours (Table) 10/25/23 10/26/23 10/26/23 Range/Units 17:02 12:20 14:03 RBC (4.30-5.90) m/uL Hgb (13.0-17.5) gm/dL Hct (39.0-53.0) % Chloride (98-107) mmol/L Carbon Dioxide (22-30) mmol/L BUN (9-20) mg/dL Creatinine (0.66-1.25) mg/dL Glucose (74-99) mg/dL POC Glucose (mg/dL) 115 H (70-110) mg/dL Troponin I (0.000-0.034) ng/mL Urine Protein 1+ H 1+ H (Negative) Urine Glucose (UA) 1+ H (Negative) Urine Blood Moderate H (Negative) Ur Leukocyte Esterase Moderate H (Negative) Urine RBC >182 H (0-5) /hpf Urine WBC 10 H (0-5) /hpf Uric Acid Crystals Occasional H (None) /hpf Triple Phos Crystals Moderate H (None) /hpf Amorphous Sediment Moderate H (None) /hpf Urine Bacteria Occasional H Rare H (None) /hpf Hyaline Casts 9 H (0-2) /lpf Urine Mucus Many H Rare H (None) /hpf 10/26/23 10/26/23 10/26/23 Range/Units 16:12 16:12 21:35 RBC 2.78 L (4.30-5.90) m/uL Hgb 8.3 L (13.0-17.5) gm/dL Hct 25.7 L (39.0-53.0) % Chloride (98-107) mmol/L Carbon Dioxide (22-30) mmol/L BUN (9-20) mg/dL Creatinine (0.66-1.25) mg/dL Glucose (74-99) mg/dL POC Glucose (mg/dL) (70-110) mg/dL Troponin I 0.334 H* 0.277 H* (0.000-0.034) ng/mL Urine Protein (Negative) Urine Glucose (UA) (Negative) Urine Blood (Negative) Ur Leukocyte Esterase (Negative) Urine RBC (0-5) /hpf Urine WBC (0-5) /hpf Uric Acid Crystals (None) /hpf Triple Phos Crystals (None) /hpf Amorphous Sediment (None) /hpf Urine Bacteria (None) /hpf Hyaline Casts (0-2) /lpf Urine Mucus (None) /hpf 10/27/23 10/27/23 10/27/23 Range/Units 06:12 06:12 08:42 RBC 2.61 L (4.30-5.90) m/uL Hgb 8.0 L (13.0-17.5) gm/dL Hct 24.4 L (39.0-53.0) % Chloride 113 H (98-107) mmol/L Carbon Dioxide 17 L (22-30) mmol/L BUN 51 H (9-20) mg/dL Creatinine 2.85 H (0.66-1.25) mg/dL Glucose 73 L (74-99) mg/dL POC Glucose (mg/dL) 68 L (70-110) mg/dL Troponin I (0.000-0.034) ng/mL Urine Protein (Negative) Urine Glucose (UA) (Negative) Urine Blood (Negative) Ur Leukocyte Esterase (Negative) Urine RBC (0-5) /hpf Urine WBC (0-5) /hpf Uric Acid Crystals (None) /hpf Triple Phos Crystals (None) /hpf Amorphous Sediment (None) /hpf Urine Bacteria (None) /hpf Hyaline Casts (0-2) /lpf Urine Mucus (None) /hpf Microbiology - Last 24 Hours (Table) 10/25/23 15:20 Blood Culture - Preliminary Blood 10/25/23 15:31 Blood Culture - Preliminary Blood Assessment and Plan Assessment: Acute renal failure secondary to ATN related to hypotension, urinary retention, medications- NIYAH inhibitor, metformin on hold Metabolic acidosis secondary to #1 Possible acute UTI, original UA not available, UA with reflex to culture reorder ed. 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 Lactic acidosis resolved with IV fluid hydration Acute blood loss anemia, in a patient with recent history of colon resection, ostomy, massive GI bleed with multiple units of packed RBC transfusions at [facility], possibly hemodilutional. Acute renal failure Diabetes mellitus, hemoglobin A1c 5.7 Hypertension Hyperlipidemia Sleep apnea Plan: Continue on current medication regime, monitoring and symptomatic treatment. EEG and echo pending. general surgery consulted related to anemia. Bicarb drip as per nephrology. Avoid nephrotoxins. maintain seizure precautions. Antibiotics as per infectious disease .close monitoring of hemoglobin, renal function, bicarb with repeat labs ordered for a.m. The impression and plan of care has been dictated as directed. : I performed a history and examination of this patient, discussed the same with the dictator. I agree with the dictator's note ,documented as a scribe. Any additional findings or plans will be noted.
[2023-10-27] MEDS: DEXTROSE 5% IN WATER 1,000 ML with SODIUM BICARB (1 MEQ/ML) 150 ML IV SCH (13:54)
--- NOTE | 2023-10-27 15:16 | P.GSCN ---
History of Present Illness Consult date: 10/27/23 History of present illness: CHIEF COMPLAINT: Hypotension and unresponsiveness HISTORY OF PRESENT ILLNESS: This is a 63-year-old male who was brought in from [facility] due to hypotension and unresponsiveness. Patient evidence of acute renal failure and possible UTI. Patient did have a hemoglobin of 12.7 which is dropped down to 8.0. Patient has received fluids for his hypotension. Currently no blood from his ostomy. Stool is liquidy green in color. He denies any abdominal pain. Denies any nausea or vomiting. Patient had a recent colon resection with ostomy placed at [facility] for GI bleed about 2 weeks ago. Patient had a prolonged hospitalization there and needed ICU care. Per charting patient needed more than 10 units of packaged RBCs., Patient currently denies any chest pain or shortness of breath. PAST MEDICAL HISTORY: GI bleed, CVA, diabetes mellitus, hyperlipidemia, hypertension, sleep apnea, cerebral bleed 08/19/2022 right-sided weakness, seizure PAST SURGICAL HISTORY: See list. MEDICATIONS: See list. ALLERGIES: See list. SOCIAL HISTORY: No illicit drug use. REVIEW OF SYSTEMS: CONSTITUTIONAL: Denies fever or chills. HEENT: Denies blurred vision, vision changes, or eye pain. Denies hemoptysis ENDOCRINE: Denies heat or cold intolerance. CARDIOVASCULAR: Denies chest pain or pressure. RESPIRATORY: No shortness of breath. GASTROINTESTINAL: Denies abdominal pain. Denies nausea or vomiting. NEURO: Denies history of seizures. PSYCH: No depression or suicidal ideation HEMATOLOGIC: Denies bleeding disorders. LYMPHATIC: The patient denies any lumps and bumps around the neck. GENITOURINARY: Denies any blood in urine or increased urinary frequency. MUSCULOSKELETAL: Denies myalgias. Denies joint swelling. Denies decreased range of motion beyond patients baseline. SKIN: Denies pruitis. Denies rash. PHYSICAL EXAM: VITAL SIGNS: Reviewed GENERAL: Well-developed in no acute distress. HEENT: No sclera icterus. Extraocular movements grossly intact. Moist buccal mucosa. Head is atraumatic, normocephalic. Hears conversational speech. No nasal drainage. NECK: Supple without lymphadenopathy. CHEST: Non-labored respirations and equal bilateral excursions. CARDIOVASCULAR: Palpable 2+ radial pulses. ABDOMEN: Soft. Nondistended. Nontender ostomy intact stoma pink in color. No evidence of bleeding at this time. Liquidy green stool present. MUSCULOSKELETAL: No clubbing or cyanosis. NEUROLOGIC: No focal or lateralizing signs. Cranial nerves II through XII grossly intact. PSYCH: Appropriate affect. Alert and oriented to person, place and time. SKIN: Well perfused. Good skin turgor. LABORATORY DATA: WBC 9.0 Hgb 12.7 down to 8.0 platelets 200 Sodium is 140 potassium 3.9 creatinine 5.55 down to 2.85 IMAGING: Bladder ultrasound multiple right sided renal cysts. No hydronephrosis or renal stones. Incidental note made of cholelithiasis. ASSESSMENT: 1. Anemia. No signs of active bleeding at this time 2. Recent GI bleed with colectomy and ostomy placement about 2 weeks ago at [facility] 3. Hypotension improved with IV fluids 4. Acute kidney injury 5. Altered mental status 6. Elevated troponin, followed by cardiology, not suggestive of acute coronary syndrome PLAN: -Further recommendations forthcoming per surgeon -Continue to monitor hemoglobin -Continue to monitor for any signs or symptoms of bleeding -Continue Protonix -Okay for regular diet Physician Respiratory Assistant note has been reviewed by physician. Signing provider agrees with the documented findings, assessment, and plan of care. Past Medical History Past Medical History: CVA/TIA, Diabetes Mellitus, Hyperlipidemia, Hypertension, Sleep Apnea/CPAP/BIPAP Additional Past Medical History / Comment(s): uses CPAP, CEREBRAL BLEED 08/19/22 RIGHT SIDE WEAKNESS History of Any Multi-Drug Resistant Organisms: None Reported Past Surgical History: Heart Catheterization, Hernia Repair Additional Past Surgical History / Comment(s): COLONOSCOPY Past Anesthesia/Blood Transfusion Reactions: No Reported Reaction Past Psychological History: Depression Smoking Status: Former smoker Past Alcohol Use History: Occasional Past Drug Use History: None Reported - Past Family History Sister(s) Family Medical History: Cancer Additional Family Medical History / Comment(s): 1 SISTER FROM ESOPHAGEL CANCER. 1 SISTER HAD BREAST CANCER Medications and Allergies Home Medications Medication Instructions Recorded Confirmed Type Aspirin EC [Ecotrin Low Dose] 81 mg PO DAILY@0800 12/20/21 10/25/23 History Atorvastatin [Lipitor] 80 mg PO DAILY@0800 12/20/21 10/25/23 History Docusate [Colace] 100 mg PO BID@0800,1700 12/20/21 10/25/23 History Gabapentin [Neurontin] 100 mg PO TID@0600,1200,1700 12/20/21 10/25/23 History Pantoprazole [Protonix] 40 mg PO DAILY@0800 12/20/21 10/25/23 History lisinopriL [Zestril] 20 mg PO DAILY@0800 12/20/21 10/25/23 History metFORMIN HCL 500 mg PO BID@0800,1700 12/20/21 10/25/23 History ondansetron HCL [Zofran] 8 mg PO TID@0800,1200,1700 12/20/21 10/25/23 History Baclofen 10 mg PO QID@08,12,17,21 10/25/23 10/25/23 History Cholestyramine (with Sugar) 4 gm PO DAILY PRN 10/25/23 10/25/23 History [Cholestyramine Powder] Dicyclomine [Bentyl] 10 mg PO TID@0800,1200,1700 10/25/23 10/25/23 History Loperamide [Imodium] 4 mg PO QID@00,06,12,18 10/25/23 10/25/23 History Mirtazapine 30 mg PO HS@2100 10/25/23 10/25/23 History NIFEdipine XL [Procardia XL] 60 mg PO DAILY@0800 10/25/23 10/25/23 History Sertraline [Zoloft] 100 mg PO DAILY@0800 10/25/23 10/25/23 History Allergies Allergy/AdvReac Type Severity Reaction Status Date / Time No Known Allergies Allergy Verified 10/25/23 17:01 Surgical - Exam Vital Signs Pulse Resp BP 90 16 80/63 10/25/23 14:34 10/25/23 14:34 10/25/23 14:34 Results - Labs 10/27/23 06:12 10/27/23 06:12 Abnormal Lab Results - Last 24 Hours (Table) 10/26/23 10/26/23 10/26/23 Range/Units 16:12 16:12 21:35 RBC 2.78 L (4.30-5.90) m/uL Hgb 8.3 L (13.0-17.5) gm/dL Hct 25.7 L (39.0-53.0) % Chloride (98-107) mmol/L Carbon Dioxide (22-30) mmol/L BUN (9-20) mg/dL Creatinine (0.66-1.25) mg/dL Glucose (74-99) mg/dL POC Glucose (mg/dL) (70-110) mg/dL Troponin I 0.334 H* 0.277 H* (0.000-0.034) ng/mL 10/27/23 10/27/23 10/27/23 Range/Units 06:12 06:12 08:42 RBC 2.61 L (4.30-5.90) m/uL Hgb 8.0 L (13.0-17.5) gm/dL Hct 24.4 L (39.0-53.0) % Chloride 113 H (98-107) mmol/L Carbon Dioxide 17 L (22-30) mmol/L BUN 51 H (9-20) mg/dL Creatinine 2.85 H (0.66-1.25) mg/dL Glucose 73 L (74-99) mg/dL POC Glucose (mg/dL) 68 L (70-110) mg/dL Troponin I (0.000-0.034) ng/mL 10/27/23 Range/Units 12:42 RBC (4.30-5.90) m/uL Hgb (13.0-17.5) gm/dL Hct (39.0-53.0) % Chloride (98-107) mmol/L Carbon Dioxide (22-30) mmol/L BUN (9-20) mg/dL Creatinine (0.66-1.25) mg/dL Glucose (74-99) mg/dL POC Glucose (mg/dL) 134 H (70-110) mg/dL Troponin I (0.000-0.034) ng/mL Microbiology - Last 24 Hours (Table) 10/25/23 15:20 Blood Culture - Preliminary Blood 10/25/23 15:31 Blood Culture - Preliminary Blood Diabetes panel 10/27/23 10/27/23 Range/Units 06:12 06:12 Sodium 140 (137-145) mmol/L Potassium 3.9 (3.5-5.1) mmol/L Chloride 113 H (98-107) mmol/L Carbon Dioxide 17 L (22-30) mmol/L BUN 51 H (9-20) mg/dL Creatinine 2.85 H (0.66-1.25) mg/dL Glucose 73 L (74-99) mg/dL Hemoglobin A1c 5.7 (<=6.0) % Calcium 8.8 (8.4-10.2) mg/dL Calcium panel 10/27/23 Range/Units 06:12 Calcium 8.8 (8.4-10.2) mg/dL Pituitary panel 10/27/23 Range/Units 06:12 Sodium 140 (137-145) mmol/L Potassium 3.9 (3.5-5.1) mmol/L Chloride 113 H (98-107) mmol/L Carbon Dioxide 17 L (22-30) mmol/L BUN 51 H (9-20) mg/dL Creatinine 2.85 H (0.66-1.25) mg/dL Glucose 73 L (74-99) mg/dL Calcium 8.8 (8.4-10.2) mg/dL Adrenal panel 10/27/23 Range/Units 06:12 Sodium 140 (137-145) mmol/L Potassium 3.9 (3.5-5.1) mmol/L Chloride 113 H (98-107) mmol/L Carbon Dioxide 17 L (22-30) mmol/L BUN 51 H (9-20) mg/dL Creatinine 2.85 H (0.66-1.25) mg/dL Glucose 73 L (74-99) mg/dL Calcium 8.8 (8.4-10.2) mg/dL
[2023-10-27 16:48] LABS: Glucose,Whole Blood 141 mg/dL (70-110)
[2023-10-27] MEDS: ACETAMINOPHEN TAB 325 MG TAB PO PRN (20:34)
[2023-10-27 20:36] LABS: Glucose,Whole Blood 137 mg/dL (70-110)
[2023-10-27] MEDS: CEFEPIME 1 GM in SODIUM CHLORIDE 0.9% 50 ML IVPB SCH (20:45)
[2023-10-27 21:20] LABS: % Iron Saturation 12.07 (15.00-50.00)
--- NOTE | 2023-10-28 00:29 | EEG ---
ELECTROENCEPHALOGRAM REPORT PREAMBLE: This is a 63-year-old male who has history of stroke in 2020 with right hemiplegia, came to the hospital with seizure-like activity. The patient was also hypotensive at that time. The patient not on any seizure medication. EEG FINDINGS: This is a 21-channel digital EEG recorded with video component, utilizing 10/20 international system with referential and bipolar montages. Background consists of moderately well-developed, poorly regulated, predominantly mixed frequencies of 5-6 hertz theta, intermixed with moderate amplitude 1-2 hertz delta activity seen in bihemispheric region. Background does not seem to be reactive to eye opening or closing. Photic stimulation and hyperventilation were not done. Different stages of sleep were not seen. No focal or generalized epileptiform activity was seen. IMPRESSION: This is an abnormal EEG due to background slowing of moderate degree. This is suggestive of generalized cerebral dysfunction as can be seen with toxic metabolic encephalopathy or related to diffuse structural brain abnormality. Clinical correlation is recommended. No epileptiform activity was seen. MMODL / IJN: [id number] /
[2023-10-28 05:19] LABS: Glucose,Whole Blood 141 mg/dL (70-110)
--- NOTE | 2023-10-28 08:13 | P.CONS ---
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 also with a history of diabetes mellitus hypertension hyperlipidemia sleep apnea recently admitted at [facility] for GI bleed and the patient's status post subtotal colectomy with ileostomy after stabilization the patient has been discharged to the [facility] for rehabilitation, patient apparently did have an episode of decreased responsiveness, seem to have difficulty urinating was complaining of shortness of breath and noticed to be hypoxic for the patient was brought into [facility] ER 2 days ago on presentation to the hospital the patient was afebrile no fever has been called subsequently patient did have some tachycardia but not hypotensive or hypoxic and currently not requiring some supplemental oxygen patient did have a white count of 11,000 on admission did have elevated BUN and creatinine lactic acid was 2.3 subsequent normalized liver enzymes normal patient did have a positive UA with moderate leukocyte Estrace urine drug screen has been negative patient did have a dose of Rocephin in the ER yesterday infectious disease was consulted for further grzegorz gement of antibiotic therapy patient did have a chest x-ray no acute cardiopulmonary disease ultrasound of the bladder and kidney area mild right- sided renal cyst no hydronephrosis or shadowing stone is seen, patient abdominal evaluation slightly more awake and alert he is breathing comfortably on room air denies any chest pain shortness of breath or cough denies currently abdominal pain no nausea no vomiting does have some difficulty urination no hematuria or flank pain Review of Systems Positive point and negatives has been mentioned in the HPI, complete review of systems was performed and all other systems are negative Past Medical History Past Medical History: CVA/TIA, Diabetes Mellitus, Hyperlipidemia, Hypertension, Sleep Apnea/CPAP/BIPAP Additional Past Medical History / Comment(s): uses CPAP, CEREBRAL BLEED 08/19/22 RIGHT SIDE WEAKNESS History of Any Multi-Drug Resistant Organisms: None Reported Past Surgical History: Heart Catheterization, Hernia Repair Additional Past Surgical History / Comment(s): COLONOSCOPY Past Anesthesia/Blood Transfusion Reactions: No Reported Reaction Past Psychological History: Depression Smoking Status: Former smoker Past Alcohol Use History: Occasional Past Drug Use History: None Reported - Past Family History Sister(s) Family Medical History: Cancer Additional Family Medical History / Comment(s): 1 SISTER FROM ESOPHAGEL CANCER. 1 SISTER HAD BREAST CANCER Medications and Allergies Home Medications Medication Instructions Recorded Confirmed Type Aspirin EC [Ecotrin Low Dose] 81 mg PO DAILY@0800 12/20/21 10/25/23 History Atorvastatin [Lipitor] 80 mg PO DAILY@0800 12/20/21 10/25/23 History Docusate [Colace] 100 mg PO BID@0800,1700 12/20/21 10/25/23 History Gabapentin [Neurontin] 100 mg PO TID@0600,1200,1700 12/20/21 10/25/23 History Pantoprazole [Protonix] 40 mg PO DAILY@0800 12/20/21 10/25/23 History metFORMIN HCL 500 mg PO BID@0800,1700 12/20/21 10/25/23 History ondansetron HCL [Zofran] 8 mg PO TID@0800,1200,1700 12/20/21 10/25/23 History Baclofen 10 mg PO QID@08,12,17,21 10/25/23 10/25/23 History Cholestyramine (with Sugar) 4 gm PO DAILY PRN 10/25/23 10/25/23 History [Cholestyramine Powder] Dicyclomine [Bentyl] 10 mg PO TID@0800,1200,1700 10/25/23 10/25/23 History Loperamide [Imodium] 4 mg PO QID@00,06,12,18 10/25/23 10/25/23 History Mirtazapine 30 mg PO HS@2100 10/25/23 10/25/23 History NIFEdipine XL [Procardia XL] 60 mg PO DAILY@0800 10/25/23 10/25/23 History Sertraline [Zoloft] 100 mg PO DAILY@0800 10/25/23 10/25/23 History cefUROXime axetiL [Ceftin] 500 mg PO BID 5 Days #10 tab 10/29/23 Rx Apixaban [Eliquis] 5 mg PO BID tab 11/02/23 Rx lisinopriL [Zestril] 5 mg PO DAILY tab 11/02/23 Rx INSULIN LISPRO (HumaLOG) [humaLOG] 0 unit SQ ACHS #10 ml 11/03/23 Rx Allergies Allergy/AdvReac Type Severity Reaction Status Date / Time No Known Allergies Allergy Verified 10/25/23 17:01 Physical Exam Vitals: Vital Signs Temp Pulse Resp BP Pulse Ox 10/27/23 06:47 74 16 93/60 100 10/27/23 03:59 95 16 129/67 98 10/26/23 23:40 98.2 F 98 18 133/68 100 10/26/23 19:02 86 18 104/70 100 10/26/23 17:39 72 20 100 10/26/23 11:42 93 L 10/26/23 11:31 98.7 F 105 H 18 93/61 93 L Intake and Output 10/26/23 10/27/23 10/27/23 22:59 06:59 14:59 Output Total 1700 Balance -1700 Output: Urine 1700 GENERAL DESCRIPTION: Middle-aged male lying in bed, no distress. No tachypnea or accessory muscle of respiration use. HEENT: Shows Pallor , no scleral icterus. Oral mucous membrane is dry. NECK: Trachea central, no thyromegaly. LUNGS: Unlabored breathing. Clear to auscultation anteriorly. No wheeze or crackle. HEART: S1, S2, regular rate and rhythm. No loud murmur ABDOMEN: Soft, no tenderness , EXTREMITIES: No edema of feet. SKIN: No rash, no masses palpable. NEUROLOGICAL: The patient is lethargic but arousable, mood and affect normal. Results CBC & Chem 7: 11/03/23 06:57 11/03/23 06:57 Labs: Abnormal Lab Results - Last 24 Hours (Table) 10/25/23 10/26/23 10/26/23 Range/Units 17:02 11:36 12:20 RBC 2.91 L (4.30-5.90) m/uL Hgb 8.5 L (13.0-17.5) gm/dL Hct 26.7 L (39.0-53.0) % Neutrophils # 8.5 H (1.3-7.7) k/uL Lymphocytes # 0.8 L (1.0-4.8) k/uL Chloride (98-107) mmol/L Carbon Dioxide (22-30) mmol/L BUN (9-20) mg/dL Creatinine (0.66-1.25) mg/dL Glucose (74-99) mg/dL POC Glucose (mg/dL) 115 H (70-110) mg/dL Troponin I (0.000-0.034) ng/mL Urine Protein 1+ H (Negative) Urine Glucose (UA) (Negative) Urine Blood (Negative) Ur Leukocyte Esterase (Negative) Urine RBC (0-5) /hpf Urine WBC (0-5) /hpf Uric Acid Crystals Occasional H (None) /hpf Triple Phos Crystals (None) /hpf Amorphous Sediment Moderate H (None) /hpf Urine Bacteria Occasional H (None) /hpf Hyaline Casts 9 H (0-2) /lpf Urine Mucus Many H (None) /hpf 10/26/23 10/26/23 10/26/23 Range/Units 14:03 16:12 16:12 RBC 2.78 L (4.30-5.90) m/uL Hgb 8.3 L (13.0-17.5) gm/dL Hct 25.7 L (39.0-53.0) % Neutrophils # (1.3-7.7) k/uL Lymphocytes # (1.0-4.8) k/uL Chloride (98-107) mmol/L Carbon Dioxide (22-30) mmol/L BUN (9-20) mg/dL Creatinine (0.66-1.25) mg/dL Glucose (74-99) mg/dL POC Glucose (mg/dL) (70-110) mg/dL Troponin I 0.334 H* (0.000-0.034) ng/mL Urine Protein 1+ H (Negative) Urine Glucose (UA) 1+ H (Negative) Urine Blood Moderate H (Negative) Ur Leukocyte Esterase Moderate H (Negative) Urine RBC >182 H (0-5) /hpf Urine WBC 10 H (0-5) /hpf Uric Acid Crystals (None) /hpf Triple Phos Crystals Moderate H (None) /hpf Amorphous Sediment (None) /hpf Urine Bacteria Rare H (None) /hpf Hyaline Casts (0-2) /lpf Urine Mucus Rare H (None) /hpf 10/26/23 10/27/23 10/27/23 Range/Units 21:35 06:12 06:12 RBC 2.61 L (4.30-5.90) m/uL Hgb 8.0 L (13.0-17.5) gm/dL Hct 24.4 L (39.0-53.0) % Neutrophils # (1.3-7.7) k/uL Lymphocytes # (1.0-4.8) k/uL Chloride 113 H (98-107) mmol/L Carbon Dioxide 17 L (22-30) mmol/L BUN 51 H (9-20) mg/dL Creatinine 2.85 H (0.66-1.25) mg/dL Glucose 73 L (74-99) mg/dL POC Glucose (mg/dL) (70-110) mg/dL Troponin I 0.277 H* (0.000-0.034) ng/mL Urine Protein (Negative) Urine Glucose (UA) (Negative) Urine Blood (Negative) Ur Leukocyte Esterase (Negative) Urine RBC (0-5) /hpf Urine WBC (0-5) /hpf Uric Acid Crystals (None) /hpf Triple Phos Crystals (None) /hpf Amorphous Sediment (None) /hpf Urine Bacteria (None) /hpf Hyaline Casts (0-2) /lpf Urine Mucus (None) /hpf 10/27/23 Range/Units 08:42 RBC (4.30-5.90) m/uL Hgb (13.0-17.5) gm/dL Hct (39.0-53.0) % Neutrophils # (1.3-7.7) k/uL Lymphocytes # (1.0-4.8) k/uL Chloride (98-107) mmol/L Carbon Dioxide (22-30) mmol/L BUN (9-20) mg/dL Creatinine (0.66-1.25) mg/dL Glucose (74-99) mg/dL POC Glucose (mg/dL) 68 L (70-110) mg/dL Troponin I (0.000-0.034) ng/mL Urine Protein (Negative) Urine Glucose (UA) (Negative) Urine Blood (Negative) Ur Leukocyte Esterase (Negative) Urine RBC (0-5) /hpf Urine WBC (0-5) /hpf Uric Acid Crystals (None) /hpf Triple Phos Crystals (None) /hpf Amorphous Sediment (None) /hpf Urine Bacteria (None) /hpf Hyaline Casts (0-2) /lpf Urine Mucus (None) /hpf Microbiology - Last 24 Hours (Table) 10/25/23 15:20 Blood Culture - Preliminary Blood 10/25/23 15:31 Blood Culture - Preliminary Blood Assessment and Plan (1) Leukocytosis Status: Acute Code(s): D72.829 - ELEVATED WHITE BLOOD CELL COUNT, UNSPECIFIED SNOMED Code(s): 114464190 (2) Urinary tract infection Status: Acute Code(s): N39.0 - URINARY TRACT INFECTION, SITE NOT SPECIFIED SNOMED Code(s): 65460812 Plan: 1patient presented to hospital with weakness decreased level of responsiveness, patient did have a urinary symptoms also elevated white count positive UA concerning for symptomatic ureteric infection likely from enteric gram-negative pathogen keeping in mind her recent prolonged stay at [facility] will need to cover for resistant gram-negative 2-we will start the patient cefepime dose adjusted to the kidney function while waiting for the culture to finalize at the bedside multiple question concern answered We will follow on clinical condition and cultures to further adjust medication if needed Thank you for this consultation we will follow the patient along with you Dictation was produced using [employer] dictation software. please excuse any grammatical, word or spelling errors. Time with Patient: Greater than 30
[2023-10-28 09:26] LABS: HCT 24.7 % (39.0-53.0); HGB 8.3 gm/dL (13.0-17.5); Hypochromasia Slight; MCH 30.6 pg (25.0-35.0); MCHC 33.8 g/dL (31.0-37.0); MCV 90.7 fL (80.0-100.0); Mean Platelet Volume 8.2; Platelet Count 191 k/uL (150-450); Poikilocytosis Slight; RBC 2.73 m/uL (4.30-5.90); RDW 14.4 % (11.5-15.5)
--- NOTE | 2023-10-28 10:25 | P.PN ---
Subjective Progress Note Date: 10/27/23 Patient was seen for a follow-up. Patient's and perhaps children were present. They believe patient is much better. They believe he is 40% better. He is nowhere back to baseline yet. His worsening of symptoms were very acute, concerning for a CVA. Patient already have history of multiple strokes in the past. Need to rule out another CVA. Objective - Vital Signs Vital signs: Vital Signs Temp 98.4 F 10/27/23 15:19 Pulse 101 H 10/27/23 16:00 Resp 16 10/27/23 16:00 BP 152/80 10/27/23 16:00 Pulse Ox 100 10/27/23 16:00 FiO2 Intake & Output 10/26/23 10/27/23 10/27/23 18:59 06:59 18:59 Output Total 1700 1000 Balance -1700 -1000 Output: Urine 1700 850 Stool 150 Other: Voiding Method Indwelling Catheter - Exam Patient is much more alert and awake. He continues to be somewhat dysarthric. Patient is nowhere back to baseline yet. - Labs CBC & Chem 7: 10/28/23 07:37 10/27/23 06:12 Labs: Abnormal Lab Results - Last 24 Hours (Table) 10/26/23 10/27/23 10/27/23 Range/Units 21:35 06:12 06:12 RBC 2.61 L (4.30-5.90) m/uL Hgb 8.0 L (13.0-17.5) gm/dL Hct 24.4 L (39.0-53.0) % Chloride 113 H (98-107) mmol/L Carbon Dioxide 17 L (22-30) mmol/L BUN 51 H (9-20) mg/dL Creatinine 2.85 H (0.66-1.25) mg/dL Glucose 73 L (74-99) mg/dL POC Glucose (mg/dL) (70-110) mg/dL Troponin I 0.277 H* (0.000-0.034) ng/mL 10/27/23 10/27/23 10/27/23 Range/Units 08:42 12:42 16:44 RBC (4.30-5.90) m/uL Hgb (13.0-17.5) gm/dL Hct (39.0-53.0) % Chloride (98-107) mmol/L Carbon Dioxide (22-30) mmol/L BUN (9-20) mg/dL Creatinine (0.66-1.25) mg/dL Glucose (74-99) mg/dL POC Glucose (mg/dL) 68 L 134 H 141 H (70-110) mg/dL Troponin I (0.000-0.034) ng/mL Microbiology - Last 24 Hours (Table) 10/25/23 15:20 Blood Culture - Preliminary Blood 10/25/23 15:31 Blood Culture - Preliminary Blood Assessment and Plan Assessment: * Seizure, likely due to hemodynamic and metabolic dysfunction. Patient was very hypotensive with blood pressure 70/28 likely triggering the seizure. Perhaps acute on chronic renal insufficiency, hyperkalemia may be contributing to the seizure. * Patient developed acute worsening of mental status. Need to rule out CVA. * Acute renal failure * Hyperkalemia * Lactic acidosis * Elevated troponin, improving, cardiology on board. * Anemia with recent history of massive GI bleed status post multiple packed RBC transfusion and colectomy with ileostomy. 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 * Evidence of chronic left occipital lobe CVA which is new since his most recent brain imaging of MRI 01/14/2022 * Hypertension * Diabetes, well-controlled, as last A1c 5.9 on 07/24/2023 * Previous 2D echo reported small PFO versus ASD. Cardiology following. Plan: * Patient's seizure is likely provoked due to reasons mentioned above. * EEG was abnormal due to background slowing of moderate degree, suggestive of generalized cerebral dysfunction as can be seen with toxic metabolic encephalopathy or related to diffuse structural brain abnormality. Clinical correlation is recommended. No epileptiform activity was seen. * No indication of antiepileptic medication, as the seizure was likely provoked due to hemodynamic and metabolic dysfunction, and the EEG did not reveal any epileptiform activity. * Patient has acute change in mental status, and continues to have mildly slurred speech. We will check MRI to rule out any acute stroke. * Patient has elevated cardiac enzymes. Cardiology on board. Consider starting aspirin if no medical contraindication. We will defer to IM/cardiology because of recent massive GI bleed, and currently patient's hemoglobin has dropped from 12.7-8.5, and now today further down to 8.0. * Nephrology on board for acute renal failure, much improving. * Patient's 2D echo in July 2021 revealed EF 50 to 55%, mild MR, possible PFO versus ASD. Cardiology on board, recommended repeating 2D echo. Uncertain if patient had TOMASA performed in the past. * Hemoglobin A1c 5.9 on 07/24/2023 * Patient has possible UTI, ID on board, started on cefepime. * Lipid panel with cholesterol 115, LDL 49, HDL 51, triglycerides 70 on 07/24/2023. Continue Lipitor 80 mg daily. * Other medical management as per IM and other specialties.
[2023-10-28 11:34] LABS: Glucose,Whole Blood 175 mg/dL (70-110)
--- NOTE | 2023-10-28 11:42 | CA ---
Transthoracic Echo Report Name: Dillan Mosquera Age: 63 Gender: M : 1960 Exam Date: 10/27/2023 16:05 Exam Location: [facility] Ht (in): 72 Wt (lb): 180 Ordering Physician: Za Mayer Attending/Referring Phys: Giorgi Martini MD ([id number]) Ice Platform Supervisor Lauren Arora, [place] Procedure CPT: Indications: LV function Cardiac Hx: stroke Technical Quality: Fair Contrast 1: Total Dose (mL): Contrast 2: Total Dose (mL): MEASUREMENTS (Male / Female) Normal Values 2D ECHO LV Diastolic Diameter PLAX 5.0 cm 4.2 - 5.9 / 3.9 - 5.3 cm LV Systolic Diameter PLAX 3.4 cm IVS Diastolic Thickness 1.2 cm 0.6 - 1.0 / 0.6 - 0.9 cm LVPW Diastolic Thickness 1.1 cm 0.6 - 1.0 / 0.6 - 0.9 cm LV Relative Wall Thickness 0.5 RV Internal Dim ED PLAX 2.8 cm LA Systolic Diameter LX 3.3 cm 3.0 - 4.0 / 2.7 - 3.8 cm M-MODE Aortic Root Diameter MM 3.4 cm DOPPLER AV Peak Velocity 106.8 cm/s AV Peak Gradient 4.6 mmHg MV Area PHT 4.2 cm??? Mitral E Point Velocity 86.4 cm/s Mitral A Point Velocity 76.3 cm/s Mitral E to A Ratio 1.1 MV Deceleration Time 182.6 ms FINDINGS Left Ventricle Left ventricular ejection fraction is estimated at 50-55 %. Left ventricular cavity size normal. Mildly increased septal wall thickness. Right Ventricle Normal right ventricular size. Unable to estimate the right ventricular systolic pressure. Right Atrium Right atrium not well visualized. Left Atrium Normal left atrial size. Mitral Valve Structurally normal mitral valve. No mitral stenosis, regurgitation or prolapse. Aortic Valve Aortic valve not well visualized. Tricuspid Valve Tricuspid valve not well visualized. Pulmonic Valve Pulmonic valve not well visualized. Pericardium No pericardial effusion. Aorta Normal size aortic root and proximal ascending aorta. CONCLUSIONS Normal LV function Previewed by: Dr. Elan Armenta MD (Electronically Signed) Final Date: 28 October 2023 11:42
[2023-10-28] MEDS: LORazepam 2 MG/ML INJ IV STA (12:18)
--- NOTE | 2023-10-28 12:23 | P.PN ---
Subjective HISTORY OF PRESENT ILLNESS: This is a 63-year-old female with a past medical history significant for hypertension, hyperlipidemia, diabetes, CVA, and former nicotine dependence. Patient does not follow with a technician assistant. We have been asked to see the patient in consultation for elevated troponins. Patient examined at the bedside in the emergency room. Patient's family is at the bedside. Patient was recently hospitalized at [facility] due to significant GI bleeding requiring more than 10 units of packed RBCs. Patient also underwent colon resection end ileostomy placement. Patient was discharged to [facility]. Patient's family states he was only there for less than 2 days when he began to have shortness of breath, low blood pressure, and confusion. Patient was brought to the hospital for further evaluation. Patient currently denies any chest pain or pressure. He denies any shortness of breath. DIAGNOSTICS: - EKG reveals sinus mechanism with no signs of acute ischemia. - Chest xray negative for acute process. - Laboratory data: WBC 9.9. Hemoglobin 8.3. Platelet count 219. Sodium 140. Potassium 4.2. BUN 62. Creatinine 4.96. Lactic acid 2.3. Troponin 1.250. 0.334. 0.277. - Current home cardiac medications include Procardia XL 60 mg daily, lisinopril 20 mg daily, atorvastatin 80 mg daily, and aspirin 81 mg daily. - Most recent echocardiogram obtained in July 2021 revealed ejection fraction 50 to 55%, mild MR, mild TR, possible PFO versus ASD. - Cardiac catheterization history: March [address] Mir revealing normal coronary arteries and normal left ventricular end-diastolic pressure 10/28/2023 Patient examined this morning at the bedside. Patient's family is present. Patient states he is feeling somewhat better today. He reports he has been able to tolerate some oral intake. He denies chest pain or pressure. He denies shortness of breath. Vital signs are stable. Echocardiogram completed revealing ejection fraction 50 to 55%. PHYSICAL EXAM: VITAL SIGNS: Reviewed. GENERAL: Well-developed in no acute distress. HEENT: Head is normocephalic. Pupils are equal, round. Sclerae anicteric. Mucous membranes of the mouth are moist. Neck supple. No JVD or thyromegaly LUNGS: Respirations even and unlabored. Lungs essentially clear to auscultation bilaterally. HEART: Regular rate and rhythm. S1 and S2 heard. EXTREMITIES: Normal range of motion. No clubbing or cyanosis. Peripheral pulses intact. No lower extremity edema ASSESSMENT: Altered mental status Hypotension, improved with IV fluid hydration Acute renal failure Abnormal troponins, not suggestive of acute coronary syndrome, likely secondary to above Acute anemia, hemoglobin 12.7 on admission, now 8.3, possible hemodilution Recent colon resection with ostomy creation at [facility] Recent GI bleeding requiring more than 10 units packed RBCs History of seizure disorder History of CVA PLAN: An acute coronary event has been ruled out Continue to monitor blood pressure Continue telemetry monitoring Resume Lipitor Patient on ASA 81mg daily at home. May resume from cardiology standpoint. Will defer to internal medicine. Continue to hold antihypertensive medications No plans for TOMASA or cardiac catheterization at this time Neurology following. MRI ordered. Await results. Further recommendations pending patient course Nurse practitioner note has been reviewed by physician. Signing provider agrees with the documented findings, assessment, and plan of care documented by PROMOTIONAL MARKETING ANALYST as a scribe. Objective - Vital Signs Vital signs: Vital Signs Temp 97.7 F 10/28/23 03:28 Pulse 93 10/28/23 08:00 Resp 16 10/28/23 08:00 BP 130/63 10/28/23 08:00 Pulse Ox 100 10/28/23 08:00 FiO2 Intake & Output 10/27/23 10/28/23 10/28/23 18:59 06:59 18:59 Intake Total 120 Output Total 1000 1300 550 Balance -1000 -1180 -550 Intake: Oral 120 Output: Urine 850 1150 550 Uretheral (Leach) 500 Stool 150 150 Other: Voiding Method Indwelling Catheter Indwelling Catheter Indwelling Catheter - Labs CBC & Chem 7: 10/28/23 07:37 10/27/23 06:12 Labs: Abnormal Lab Results - Last 24 Hours (Table) 10/27/23 10/27/23 10/27/23 Range/Units 06:12 12:42 16:44 RBC (4.30-5.90) m/uL Hgb (13.0-17.5) gm/dL Hct (39.0-53.0) % POC Glucose (mg/dL) 134 H 141 H (70-110) mg/dL Iron 21 L (65-175) UG/DL TIBC 174 L (228-460) UG/DL % Saturation 12.07 L (15.00-50.00) Transferrin 124.0 L (204.0-354.0) mg/dL 10/27/23 10/28/23 10/28/23 Range/Units 20:25 05:17 07:37 RBC 2.73 L (4.30-5.90) m/uL Hgb 8.3 L (13.0-17.5) gm/dL Hct 24.7 L (39.0-53.0) % POC Glucose (mg/dL) 137 H 141 H (70-110) mg/dL Iron (65-175) UG/DL TIBC (228-460) UG/DL % Saturation (15.00-50.00) Transferrin (204.0-354.0) mg/dL 10/28/23 Range/Units 11:32 RBC (4.30-5.90) m/uL Hgb (13.0-17.5) gm/dL Hct (39.0-53.0) % POC Glucose (mg/dL) 175 H (70-110) mg/dL Iron (65-175) UG/DL TIBC (228-460) UG/DL % Saturation (15.00-50.00) Transferrin (204.0-354.0) mg/dL Microbiology - Last 24 Hours (Table) 10/25/23 15:20 Blood Culture - Preliminary Blood 10/25/23 15:31 Blood Culture - Preliminary Blood
--- NOTE | 2023-10-28 12:37 | P.PN ---
Subjective Patient is seen for follow-up for acute kidney injury. Renal function has improved significantly with IV hydration and Leach catheter placement for urine retention. Mentation has improved as well. Serum creatinine decreased to 2.8 from 5.5 on initial admission. Labs are pending from today Urine output at 2 L for 24 hours Objective - Vital Signs Vital signs: Vital Signs Temp 97.7 F 10/28/23 03:28 Pulse 93 10/28/23 08:00 Resp 16 10/28/23 08:00 BP 130/63 10/28/23 08:00 Pulse Ox 100 10/28/23 08:00 FiO2 Intake & Output 10/27/23 10/28/23 10/28/23 18:59 06:59 18:59 Intake Total 120 Output Total 1000 1300 550 Balance -1000 -1180 -550 Intake: Oral 120 Output: Urine 850 1150 550 Uretheral (Leach) 500 Stool 150 150 Other: Voiding Method Indwelling Catheter Indwelling Catheter Indwelling Catheter - Exam Patient is awake, confused. Not in any acute distress. Mentation is improved Examination of the heart S1 and S2 Examination of the lungs bilateral breath sounds are heard Abdomen is soft nontender, ileostomy noted Examination of lower extremity shows no evidence of edema Patient is moving all 4 extremities - Labs CBC & Chem 7: 10/28/23 07:37 10/27/23 06:12 Labs: Abnormal Lab Results - Last 24 Hours (Table) 10/27/23 10/27/23 10/27/23 Range/Units 06:12 12:42 16:44 RBC (4.30-5.90) m/uL Hgb (13.0-17.5) gm/dL Hct (39.0-53.0) % POC Glucose (mg/dL) 134 H 141 H (70-110) mg/dL Iron 21 L (65-175) UG/DL TIBC 174 L (228-460) UG/DL % Saturation 12.07 L (15.00-50.00) Transferrin 124.0 L (204.0-354.0) mg/dL 10/27/23 10/28/23 10/28/23 Range/Units 20:25 05:17 07:37 RBC 2.73 L (4.30-5.90) m/uL Hgb 8.3 L (13.0-17.5) gm/dL Hct 24.7 L (39.0-53.0) % POC Glucose (mg/dL) 137 H 141 H (70-110) mg/dL Iron (65-175) UG/DL TIBC (228-460) UG/DL % Saturation (15.00-50.00) Transferrin (204.0-354.0) mg/dL 10/28/23 Range/Units 11:32 RBC (4.30-5.90) m/uL Hgb (13.0-17.5) gm/dL Hct (39.0-53.0) % POC Glucose (mg/dL) 175 H (70-110) mg/dL Iron (65-175) UG/DL TIBC (228-460) UG/DL % Saturation (15.00-50.00) Transferrin (204.0-354.0) mg/dL Microbiology - Last 24 Hours (Table) 10/25/23 15:20 Blood Culture - Preliminary Blood 10/25/23 15:31 Blood Culture - Preliminary Blood Assessment and Plan Assessment: 1. Acute kidney injury ATN secondary to hypotension. Possible underlying urine retention as well. Currently with indwelling Leach catheter. Noe inhibitors are on hold. Ultrasound shows no evidence of obstructive uropathy. Multiple cysts noted on the right kidney. UA shows 1+ protein no blood on 10/25/2023. Repeat urine specimen on was likely a Leach specimen with moderate blood noted. 2. Mental status changes related to hypotension and possibly related to advanced acute kidney injury. Renal function is currently improving therefore I will hold off on dialysis. 3. Anion gap metabolic acidosis secondary to acute kidney injury and lactic acidosis 4. Anemia with recent history of massive GI bleed status post multiple packed RBCs transfusion and abdominal surgery with resection of large portion of the colon and ileostomy Plan: Continue with IV fluids It just IV fluids based on labs from today Continue with Leach catheter Continue to hold off on NOE inhibitor's and avoid any other nephrotoxic agents.
--- NOTE | 2023-10-28 13:16 | MR ---
EXAMINATION TYPE: MR brain wo con DATE OF EXAM: 10/28/2023 12:54 PM COMPARISON: NONE HISTORY: Weakness, AMS, evaluate for CVA. FINDINGS: The ventricles, basal cisterns and sulci overlying the cerebral convexities are mildly enlarged. There is evidence of mild periventricular white matter ischemic demyelination. Remote deep white matter insults are also noted. Subcortical edema noted within the high left parietal lobe compatible with acute CVA. There is also f ocal area of increased signal within the right centrum semioval . There is no evidence for midline shift or mass effect. Acute intracranial hemorrhage or extra-axial collection is not evident. The paranasal sinuses and mastoid air cells are well-aerated. IMPRESSION: Subcortical edema noted within the high left parietal lobe compatible with acute CVA. There is also f ocal area of increased signal within the right centrum semioval .
--- NOTE | 2023-10-28 15:25 | P.PN ---
Subjective Progress Note Date: 10/28/23 CHIEF COMPLAINT: Hypotension and unresponsiveness HISTORY OF PRESENT ILLNESS: Patient brought in from [facility] due to hypotension, unresponsiveness and concerns for possible seizure. Surgical service following in regards to his anemia. Patient has had no bloody output from his ileostomy. Hemoglobin has gone up slightly from 8.0-8.3. Patient did receive a lot of fluids on admission due to hypotension. Iron is low at 21 PHYSICAL EXAM: VITAL SIGNS: Reviewed GENERAL: Well-developed in no acute distress. HEENT: No sclera icterus. Extraocular movements grossly intact. Moist buccal mucosa. Head is atraumatic, normocephalic. Hears conversational speech. No nasal drainage. NECK: Supple without lymphadenopathy. CHEST: Non-labored respirations and equal bilateral excursions. CARDIOVASCULAR: Palpable 2+ radial pulses. ABDOMEN: Soft. Nondistended. Nontender. Ileostomy with light pink stoma. Stool is thick and greenish in color MUSCULOSKELETAL: No clubbing or cyanosis. NEUROLOGIC: No focal or lateralizing signs. Cranial nerves II through XII grossly intact. PSYCH: Appropriate affect. Alert and oriented to person, place and time. SKIN: Well perfused. Good skin turgor. ASSESSMENT: 1. Anemia. No signs of active bleeding at this time 2. Recent GI bleed, likely diverticular bleed with colectomy and ileostomy placement about 3 weeks ago at [facility] 3. Hypotension improved with IV fluids 4. Acute kidney injury 5. Altered mental status 6. Elevated troponin, followed by cardiology, acute coronary syndrome ruled out by cardiac PLAN: -No plans for endoscopy -Continue to monitor hemoglobin -Continue to monitor for any signs or symptoms of bleeding Physician Para Educator note has been reviewed by physician. Signing provider agrees with the documented findings, assessment, and plan of care. Objective - Vital Signs Vital signs: Vital Signs Temp 97.7 F 10/28/23 03:28 Pulse 83 10/28/23 12:00 Resp 16 10/28/23 12:00 BP 116/73 10/28/23 12:00 Pulse Ox 100 10/28/23 12:00 FiO2 Intake & Output 10/27/23 10/28/23 10/28/23 18:59 06:59 18:59 Intake Total 120 Output Total 1000 1300 550 Balance -1000 -1180 -550 Intake: Oral 120 Output: Urine 850 1150 550 Uretheral (Leach) 500 Stool 150 150 Other: Voiding Method Indwelling Catheter Indwelling Catheter Indwelling Catheter - Labs CBC & Chem 7: 10/28/23 07:37 10/27/23 06:12 Labs: Abnormal Lab Results - Last 24 Hours (Table) 10/27/23 10/27/23 10/27/23 Range/Units 06:12 16:44 20:25 RBC (4.30-5.90) m/uL Hgb (13.0-17.5) gm/dL Hct (39.0-53.0) % POC Glucose (mg/dL) 141 H 137 H (70-110) mg/dL Iron 21 L (65-175) UG/DL TIBC 174 L (228-460) UG/DL % Saturation 12.07 L (15.00-50.00) Transferrin 124.0 L (204.0-354.0) mg/dL 10/28/23 10/28/23 10/28/23 Range/Units 05:17 07:37 11:32 RBC 2.73 L (4.30-5.90) m/uL Hgb 8.3 L (13.0-17.5) gm/dL Hct 24.7 L (39.0-53.0) % POC Glucose (mg/dL) 141 H 175 H (70-110) mg/dL Iron (65-175) UG/DL TIBC (228-460) UG/DL % Saturation (15.00-50.00) Transferrin (204.0-354.0) mg/dL Microbiology - Last 24 Hours (Table) 10/25/23 15:20 Blood Culture - Preliminary Blood 10/25/23 15:31 Blood Culture - Preliminary Blood
[2023-10-28 16:22] LABS: African American GFR (CKD) 73 (>60 ml/min/1.73 sqM); Anion Gap 9 mmol/L; Blood Urea Nitrogen 23 mg/dL (9-20); Calcium 8.5 mg/dL (8.4-10.2); Carbon Dioxide 24 mmol/L (22-30); Chloride 105 mmol/L (98-107); Glucose 124 mg/dL (74-99); Non-African American GFR(CKD) 63 (>60 ml/min/1.73 sqM); Potassium 3.1 mmol/L (3.5-5.1); Sodium 138 mmol/L (137-145)
[2023-10-28 16:44] LABS: Glucose,Whole Blood 163 mg/dL (70-110)
--- NOTE | 2023-10-28 16:49 | P.PN ---
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 at bedside reports she was told by Kevin that patient had a seizure. On admission, Leach catheter was placed with immediate return of 500 mL of urine followed by another 600ml. Hypotensive on admission with lowest blood pressure recorded as 65/50, heart rate 85, respiratory rate 20, maintaining O2 sats of 100% on 4 L nasal cannula, temper ature pending. Received multiple fluid boluses and currently receiving IV fluid hydration of saline 130 MLS per hour. Serum creatinine was 5.5, currently 4.96, baseline creatinine 1. Bicarb 17, bicarb drip ordered. Chest x-ray reported no acute cardiopulmonary disease/process. Brain CT reported no acute intracranial abnormality, 2 cm area of encephalomalacia within the left occipital parietal lobe likely related to remote infarct. Denies chest pain, palpitations .troponin elevated 1.250, repeat level ordered. 10/27/2023 troponins 1.250, 0.334, 0.277 , evaluated by cardiology, echo ordered. Evaluated by neurology, EEG pending. cefepime initiated per infectious disease. UA reporting moderate triple phosphate crystals, greater than 10 urine WBCs, moderate leukocytes, negative nitrates, moderate blood, 1+ close, 1+ protein. Sensorium significantly improved.Maintained on IV bicarb, bicarb remains at 17 and Leach catheter secondary to urinary retention. Creatinine improving, decreased to 2.85. hemoglobin 8, platelets 200. Reticulocyte count within normal limits, 1. No bleeding. denies abdominal pain. Blood pressures soft. 10/28/2023 at bedside reports patient's mental status/dysarthria is at about 47 % of baseline. EEG reported abnormal due to background slowing of moderate degree suggestive of generalized cerebral dysfunction, can be seen with toxic metabolic encephalopathy or related to diffuse structural brain abnormality, no epileptiform activity seen. Just returned back from brain MRI. Echocardiogram reported normal LV function.hemoglobin 8.3 with no bleeding noted. Iron 21. 24- hour I AND O reporting urine output of 2 L. BMP pending. Objective - Vital Signs Vital signs: Vital Signs Temp 97.7 F 10/28/23 03:28 Pulse 83 10/28/23 12:00 Resp 16 10/28/23 12:00 BP 116/73 10/28/23 12:00 Pulse Ox 100 10/28/23 12:00 FiO2 Intake & Output 10/27/23 10/28/23 10/28/23 18:59 06:59 18:59 Intake Total 120 118 Output Total 1000 1300 550 Balance -1000 -1180 -432 Intake: Oral 120 118 Output: Urine 850 1150 550 Uretheral (Leach) 500 Stool 150 150 Other: Voiding Method Indwelling Catheter Indwelling Catheter Indwelling Catheter - Exam PHYSICAL EXAM: VITAL SIGNS: [As above] GENERAL: Alert and oriented x 2-3, sitting up in bed, no acute distress HEENT: Normocephalic conjunctivae normal. eyes normal. NECK: Supple, no JVD. CARDIOVASCULAR: S1, S2 regular.No murmur RESPIRATION: Unlabored, equal air entry, breath sounds diminished in the bases. ABDOMEN: Soft, nontender . No guarding, ileostomy with greenish drainage, light pink stoma. LEGS: No edema. no swelling NERVOUS SYSTEM: Limited exam -cranial nerves II through XII grossly intact.URIAS. Skin: Warm and dry, no rash noted. - Labs CBC & Chem 7: 10/28/23 07:37 10/27/23 06:12 Labs: Abnormal Lab Results - Last 24 Hours (Table) 10/27/23 10/27/23 10/27/23 Range/Units 06:12 16:44 20:25 RBC (4.30-5.90) m/uL Hgb (13.0-17.5) gm/dL Hct (39.0-53.0) % POC Glucose (mg/dL) 141 H 137 H (70-110) mg/dL Iron 21 L (65-175) UG/DL TIBC 174 L (228-460) UG/DL % Saturation 12.07 L (15.00-50.00) Transferrin 124.0 L (204.0-354.0) mg/dL 10/28/23 10/28/23 10/28/23 Range/Units 05:17 07:37 11:32 RBC 2.73 L (4.30-5.90) m/uL Hgb 8.3 L (13.0-17.5) gm/dL Hct 24.7 L (39.0-53.0) % POC Glucose (mg/dL) 141 H 175 H (70-110) mg/dL Iron (65-175) UG/DL TIBC (228-460) UG/DL % Saturation (15.00-50.00) Transferrin (204.0-354.0) mg/dL Microbiology - Last 24 Hours (Table) 10/25/23 15:20 Blood Culture - Preliminary Blood 10/25/23 15:31 Blood Culture - Preliminary Blood Assessment and Plan Assessment: Change in mental status, metabolic encephalopathy, ruling out CVA in a patient with history of 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 Brain MRI pending Chronic left occipital lobe CVA which appears new since most recent brain imaging of MRI 01/14/2022 per neurology's review. Hypotension, improved with IV fluid hydration Dehydration secondary to the above Acute renal failure secondary to ATN related to hypotension, urinary retention, medications- NIYAH inhibitor, metformin on hold Seizure activity reported by , recently while inpatient at [facility], also possibly at [facility], suspect hemodynamic related as well as related to acute renal failure. Metabolic acidosis secondary to #1 Possible acute UTI, original UA not available, UA with reflex to culture reordered. Elevated troponins, not suggestive of acute coronary syndrome as per cardiology. Lactic acidosis resolved with IV fluid hydration Acute anemia, in a patient with recent history of recent colectomy with ile ostomy, massive GI bleed with multiple units of packed RBC transfusions at [facility], possibly hemodilutional, iron deficient. Urinary retention, requiring Leach catheter Diabetes mellitus, hemoglobin A1c 5.7 Hypertension Hyperlipidemia Sleep apnea Former nicotine dependence Plan: Continue on current medication regime, monitoring and symptomatic treatment. MRI completed, results pending. BMP pending. IV fluid hydration. avoiding nephrotoxins. Continue maintaining seizure precautions. Antibiotics as per infectious disease .close monitoring of hemoglobin, renal function, bi carb with repeat labs ordered for a.m. PT/OT consulted. The impression and plan of care has been dictated as directed. : I performed a history and examination of this patient, discussed the same with the dictator. I agree with the dictator's note ,documented as a scribe. Any additional findings or plans will be noted.
[2023-10-28] MEDS: SODIUM FERRIC GLUCONAT-SUCROSE 125 MG in SODIUM CHLORIDE 0.9% 100 ML IVPB SCH (17:05)
[2023-10-28 20:02] LABS: Glucose,Whole Blood 151 mg/dL (70-110)
[2023-10-28] MEDS: CLOPIDOGREL 75 MG TAB PO SCH (21:03)
[2023-10-29 06:18] LABS: Glucose,Whole Blood 133 mg/dL (70-110)
[2023-10-29] MEDS: ACETAMINOPHEN IV (For NPO) 1,000 MG in EMPTY BAG 1 BAG IVPB ONE (06:44)
[2023-10-29 08:14] LABS: Basophils % (A) 0 %; Eosinophils # (A) 0.2 k/uL (0-0.7); Eosinophils % (A) 3 %; HCT 25.2 % (39.0-53.0); HGB 8.2 gm/dL (13.0-17.5); Lymphocytes % (A) 16 %; MCH 28.9 pg (25.0-35.0); MCHC 32.6 g/dL (31.0-37.0); MCV 88.5 fL (80.0-100.0); Mean Platelet Volume 8.5; Monocytes # (A) 0.4 k/uL (0-1.0); Monocytes % (A) 6 %; Neutrophils # (A) 4.7 k/uL (1.3-7.7); Neutrophils % (A) 75 %; Platelet Count 190 k/uL (150-450); Poikilocytosis Slight; RBC 2.85 m/uL (4.30-5.90); RDW 14.2 % (11.5-15.5); WBC 6.2 k/uL (3.8-10.6)
[2023-10-29 08:43] LABS: African American GFR (CKD) >90 (>60 ml/min/1.73 sqM); Anion Gap 6 mmol/L; Blood Urea Nitrogen 14 mg/dL (9-20); Calcium 8.3 mg/dL (8.4-10.2); Carbon Dioxide 30 mmol/L (22-30); Chloride 101 mmol/L (98-107); Glucose 120 mg/dL (74-99); Non-African American GFR(CKD) >90 (>60 ml/min/1.73 sqM); Potassium 3.1 mmol/L (3.5-5.1); Sodium 137 mmol/L (137-145)
[2023-10-29] MEDS: ATORVASTATIN 80 MG TAB PO SCH (09:18)
--- NOTE | 2023-10-29 09:26 | P.PN ---
Subjective Progress Note Date: 10/28/23 Patient was seen for a follow-up. Patient's 2 sons were present today. They believe patient is about now 55% improved. "A lot more to do". He is slowly improving. Patient denies any headache. No new focal symptoms. Objective - Vital Signs Vital signs: Vital Signs Temp 97.7 F 10/28/23 03:28 Pulse 98 10/28/23 16:00 Resp 16 10/28/23 16:00 BP 132/72 10/28/23 16:00 Pulse Ox 99 10/28/23 16:00 FiO2 Intake & Output 10/28/23 10/28/23 10/29/23 06:59 18:59 06:59 Intake Total 120 236 Output Total 1300 800 Balance -1180 -564 Intake: Oral 120 236 Output: Urine 1150 800 Uretheral (Leach) 500 Stool 150 Other: Voiding Method Indwelling Catheter Indwelling Catheter - Exam Patient is much more alert and awake. Patient speech is mild to moderately dysarthric. No aphasia. Cranial nerves significant for right facial droop. Tongue protrudes slightly to the right. Visual wu are full with no neglect. Extraocular muscles are intact. Right shoulder shrug is decreased. On muscle strength testing, the strength is completely normal in the left arm and left leg. Patient's right arm is very weak almost 0. Right hip flexion 4+, ankle dorsiflexion 0. Sensory to touch is equal with no neglect. - Labs CBC & Chem 7: 10/29/23 07:39 10/29/23 07:39 Labs: Abnormal Lab Results - Last 24 Hours (Table) 10/27/23 10/27/23 10/28/23 Range/Units 06:12 20:25 05:17 RBC (4.30-5.90) m/uL Hgb (13.0-17.5) gm/dL Hct (39.0-53.0) % Potassium (3.5-5.1) mmol/L BUN (9-20) mg/dL Glucose (74-99) mg/dL POC Glucose (mg/dL) 137 H 141 H (70-110) mg/dL Iron 21 L (65-175) UG/DL TIBC 174 L (228-460) UG/DL % Saturation 12.07 L (15.00-50.00) Transferrin 124.0 L (204.0-354.0) mg/dL 10/28/23 10/28/23 10/28/23 Range/Units 07:37 07:37 11:32 RBC 2.73 L (4.30-5.90) m/uL Hgb 8.3 L (13.0-17.5) gm/dL Hct 24.7 L (39.0-53.0) % Potassium 3.1 L (3.5-5.1) mmol/L BUN 23 H (9-20) mg/dL Glucose 124 H (74-99) mg/dL POC Glucose (mg/dL) 175 H (70-110) mg/dL Iron (65-175) UG/DL TIBC (228-460) UG/DL % Saturation (15.00-50.00) Transferrin (204.0-354.0) mg/dL 10/28/23 10/28/23 Range/Units 16:42 20:00 RBC (4.30-5.90) m/uL Hgb (13.0-17.5) gm/dL Hct (39.0-53.0) % Potassium (3.5-5.1) mmol/L BUN (9-20) mg/dL Glucose (74-99) mg/dL POC Glucose (mg/dL) 163 H 151 H (70-110) mg/dL Iron (65-175) UG/DL TIBC (228-460) UG/DL % Saturation (15.00-50.00) Transferrin (204.0-354.0) mg/dL Microbiology - Last 24 Hours (Table) 10/25/23 15:20 Blood Culture - Preliminary Blood 10/25/23 15:31 Blood Culture - Preliminary Blood Assessment and Plan Assessment: * Acute stroke, involving the high left parietal lobe and also a small focal area of ischemia in the right centrum semiovale. Strokes are bilateral, therefore need to rule out cardio-embolic source. * Seizure, likely due to hemodynamic and metabolic dysfunction. Patient was very hypotensive with blood pressure 70/28 likely triggering the seizure. Perhaps acute on chronic renal insufficiency, hyperkalemia may be contributing to the seizure. * Acute renal failure, resolved * Hyperkalemia, resolved * Lactic acidosis, resolved * Elevated troponin, improving, cardiology on board. * Anemia with recent history of massive GI bleed status post multiple packed RBC transfusion and colectomy with ileostomy. 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 * Evidence of chronic left occipital lobe CVA which is new since his most recent brain imaging of MRI 01/14/2022 * Hypertension * Diabetes, well-controlled, with hemoglobin A1c 5.7. * Previous 2D echo reported small PFO versus ASD. Cardiology following. Plan: * MRI of the brain revealed subcortical edema noted within the high left pa rietal lobe compatible with acute CVA. There is also focal area of increased signal within the right centrum semiovale. I reviewed MRI agree with the findings. * Patient was taking aspirin 81 mg daily, therefore has failed aspirin regimen. We will switch to Plavix 75 mg daily. I informed nurse to check with the primary physician to get clearance before starting Plavix. * 2D echo revealed normal left ventricular systolic function with EF 50 to 55%. Left ventricular cavity size normal. Mildly increased septal wall thickness. Right atrium not well-visualized. Normal left atrial size. Most of the valves not visualized. * Patient is having recurrent embolic strokes. He has now at least 4 different areas of ischemic infarctions over the last few years. Patient has history of possible PFO. 2D echo was of poor quality. Strongly recommend TOMASA for fu rther evaluation of embolic source. I informed the cardiology team for TOMASA. * Patient's seizure is likely provoked due to reasons mentioned above. * EEG was abnormal due to background slowing of moderate degree, suggestive of generalized cerebral dysfunction as can be seen with toxic metabolic encephalopathy or related to diffuse structural brain abnormality. Clinical correlation is recommended. No epileptiform activity was seen. * No indication of antiepileptic medication, as the seizure was likely provoked due to hemodynamic and metabolic dysfunction, and the EEG did not reveal any epileptiform activity. * Patient has elevated cardiac enzymes. Cardiology on board. Consider starting aspirin if no medical contraindication. We will defer to IM/cardiology because of recent massive GI bleed, and currently patient's hemoglobin has dropped from 12.7-8.5, and now today 8.3. * Nephrology on board for acute renal failure, now resolved. * Hemoglobin A1c 5.9 on 07/24/2023 * Patient has possible UTI, ID on board, started on cefepime. * Lipid panel with cholesterol 115, LDL 49, HDL 51, triglycerides 70 on 07/24/2023. Continue Lipitor 80 mg daily. * Other medical management as per IM and other specialties.
[2023-10-29] MEDS: ONDANSETRON 4 MG/2 ML VIAL IVP PRN (10:03)
--- NOTE | 2023-10-29 11:25 | P.PN ---
Subjective HISTORY OF PRESENT ILLNESS: This is a 63-year-old female with a past medical history significant for hypertension, hyperlipidemia, diabetes, CVA, and former nicotine dependence. Patient does not follow with a police pilot. We have been asked to see the patient in consultation for elevated troponins. Patient examined at the bedside in the emergency room. Patient's family is at the bedside. Patient was recently hospitalized at [facility] due to significant GI bleeding requiring more than 10 units of packed RBCs. Patient also underwent colon resection end ileostomy placement. Patient was discharged to [facility]. Patient's family states he was only there for less than 2 days when he began to have shortness of breath, low blood pressure, and confusion. Patient was brought to the hospital for further evaluation. Patient currently denies any chest pain or pressure. He denies any shortness of breath. DIAGNOSTICS: - EKG reveals sinus mechanism with no signs of acute ischemia. - Chest xray negative for acute process. - Laboratory data: WBC 9.9. Hemoglobin 8.3. Platelet count 219. Sodium 140. Potassium 4.2. BUN 62. Creatinine 4.96. Lactic acid 2.3. Troponin 1.250. 0.334. 0.277. - Current home cardiac medications include Procardia XL 60 mg daily, lisinopril 20 mg daily, atorvastatin 80 mg daily, and aspirin 81 mg daily. - Most recent echocardiogram obtained in July 2021 revealed ejection fraction 50 to 55%, mild MR, mild TR, possible PFO versus ASD. - Cardiac catheterization history: March [address] Mir revealing normal coronary arteries and normal left ventricular end-diastolic pressure 10/28/2023 Patient examined this morning at the bedside. Patient's family is present. Patient states he is feeling somewhat better today. He reports he has been able to tolerate some oral intake. He denies chest pain or pressure. He denies shortness of breath. Vital signs are stable. Echocardiogram completed revealing ejection fraction 50 to 55%. 10/29/2023 Patient examined this morning at the bedside. Patient's family is present. Patient denies any chest pain or pressure. He denies any shortness of breath. He states he is starting to feel little bit better. He continues to report right-sided weakness which is chronic. Telemetry reveals sinus mechanism with no evidence of atrial fibrillation. Vital signs are stable. PHYSICAL EXAM: VITAL SIGNS: Reviewed. GENERAL: Well-developed in no acute distress. HEENT: Head is normocephalic. Pupils are equal, round. Sclerae anicteric. Mucous membranes of the mouth are moist. Neck supple. No JVD or thyromegaly LUNGS: Respirations even and unlabored. Lungs essentially clear to auscultation bilaterally. HEART: Regular rate and rhythm. S1 and S2 heard. EXTREMITIES: Normal range of motion. No clubbing or cyanosis. Peripheral pulses intact. No lower extremity edema ASSESSMENT: Altered mental status Hypotension, improved with IV fluid hydration Acute renal failure Abnormal troponins, not suggestive of acute coronary syndrome, likely secondary to above Acute CVA involving left high parietal lobe and also small focal area of ischemia in right centrum semiovale Acute anemia, hemoglobin 12.7 on admission, now 8.3, possible hemodilution Recent colon resection with ostomy creation at [facility] Recent GI bleeding requiring more than 10 units packed RBCs History of seizure disorder Possible PFO vs ASD on prior echo, not visualized on repeat echo History of CVA, 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 Resume lisinopril tomorrow as LURDES has resolved and BP is running on the higher side Discussed possibility of TOMASA with family. Per Dr. Núñez, No plans for inpatient TOMASA. Will consider outpatient TOMASA when patients acute issues have resolved. Family is agreeable. Recommend event monitor at discharge to assess for atrial fibrillation Further recommendations pending patient course Nurse practitioner note has been reviewed by physician. Signing provider agrees with the documented findings, assessment, and plan of care documented by FAMILY LIFE COUNSELOR as a scribe. Objective - Vital Signs Vital signs: Vital Signs Temp 98.5 F 10/29/23 04:00 Pulse 85 10/29/23 04:00 Resp 18 10/29/23 04:00 BP 152/93 10/29/23 04:00 Pulse Ox 98 10/29/23 04:00 FiO2 Intake & Output 10/28/23 10/29/23 10/29/23 18:59 06:59 18:59 Intake Total 236 20 Output Total 800 975 Balance -564 -955 Intake: IV 20 Invasive Line 1 10 Invasive Line 2 10 Oral 236 Output: Urine 800 725 Stool 250 Other: Voiding Method Indwelling Catheter Indwelling Catheter - Labs CBC & Chem 7: 10/29/23 07:39 10/29/23 07:39 Labs: Abnormal Lab Results - Last 24 Hours (Table) 10/28/23 10/28/23 10/28/23 Range/Units 07:37 07:37 11:32 RBC 2.73 L (4.30-5.90) m/uL Hgb 8.3 L (13.0-17.5) gm/dL Hct 24.7 L (39.0-53.0) % Potassium 3.1 L (3.5-5.1) mmol/L BUN 23 H (9-20) mg/dL Glucose 124 H (74-99) mg/dL POC Glucose (mg/dL) 175 H (70-110) mg/dL Calcium (8.4-10.2) mg/dL 10/28/23 10/28/23 10/29/23 Range/Units 16:42 20:00 06:17 RBC (4.30-5.90) m/uL Hgb (13.0-17.5) gm/dL Hct (39.0-53.0) % Potassium (3.5-5.1) mmol/L BUN (9-20) mg/dL Glucose (74-99) mg/dL POC Glucose (mg/dL) 163 H 151 H 133 H (70-110) mg/dL Calcium (8.4-10.2) mg/dL 10/29/23 10/29/23 Range/Units 07:39 07:39 RBC 2.85 L (4.30-5.90) m/uL Hgb 8.2 L (13.0-17.5) gm/dL Hct 25.2 L (39.0-53.0) % Potassium 3.1 L (3.5-5.1) mmol/L BUN (9-20) mg/dL Glucose 120 H (74-99) mg/dL POC Glucose (mg/dL) (70-110) mg/dL Calcium 8.3 L (8.4-10.2) mg/dL Microbiology - Last 24 Hours (Table) 10/25/23 15:20 Blood Culture - Preliminary Blood 10/25/23 15:31 Blood Culture - Preliminary Blood
[2023-10-29] MEDS: SODIUM CHLORIDE 0.9% 1,000 ML IV SCH (11:30)
[2023-10-29 11:57] LABS: Glucose,Whole Blood 161 mg/dL (70-110)
--- NOTE | 2023-10-29 12:25 | P.PN ---
Subjective Patient is seen for follow-up for acute kidney injury. Renal function has improved significantly with IV hydration and Leach catheter placement for urine retention. Mentation has improved as well. Serum creatinine decreased to 0.9 from 5.5 on initial admission. Urine output at 1.5 L for 24 hours Objective - Vital Signs Vital signs: Vital Signs Temp 98.4 F 10/29/23 08:00 Pulse 70 10/29/23 08:00 Resp 16 10/29/23 08:00 BP 155/87 10/29/23 08:00 Pulse Ox 96 10/29/23 08:00 FiO2 Intake & Output 10/28/23 10/29/23 10/29/23 18:59 06:59 18:59 Intake Total 236 20 Output Total 800 975 150 Balance -564 -955 -150 Intake: IV 20 Invasive Line 1 10 Invasive Line 2 10 Oral 236 Output: Urine 800 725 Stool 250 150 Other: Voiding Method Indwelling Catheter Indwelling Catheter Indwelling Catheter - Exam Patient is awake, confused. Not in any acute distress. Mentation is improved Examination of the heart S1 and S2 Examination of the lungs bilateral breath sounds are heard Abdomen is soft nontender, ileostomy noted Examination of lower extremity shows no evidence of edema Patient is moving all 4 extremities - Labs CBC & Chem 7: 10/29/23 07:39 10/29/23 07:39 Labs: Abnormal Lab Results - Last 24 Hours (Table) 10/28/23 10/28/23 10/28/23 Range/Units 07:37 16:42 20:00 RBC (4.30-5.90) m/uL Hgb (13.0-17.5) gm/dL Hct (39.0-53.0) % Potassium 3.1 L (3.5-5.1) mmol/L BUN 23 H (9-20) mg/dL Glucose 124 H (74-99) mg/dL POC Glucose (mg/dL) 163 H 151 H (70-110) mg/dL Calcium (8.4-10.2) mg/dL 10/29/23 10/29/23 10/29/23 Range/Units 06:17 07:39 07:39 RBC 2.85 L (4.30-5.90) m/uL Hgb 8.2 L (13.0-17.5) gm/dL Hct 25.2 L (39.0-53.0) % Potassium 3.1 L (3.5-5.1) mmol/L BUN (9-20) mg/dL Glucose 120 H (74-99) mg/dL POC Glucose (mg/dL) 133 H (70-110) mg/dL Calcium 8.3 L (8.4-10.2) mg/dL 10/29/23 Range/Units 11:28 RBC (4.30-5.90) m/uL Hgb (13.0-17.5) gm/dL Hct (39.0-53.0) % Potassium (3.5-5.1) mmol/L BUN (9-20) mg/dL Glucose (74-99) mg/dL POC Glucose (mg/dL) 161 H (70-110) mg/dL Calcium (8.4-10.2) mg/dL Microbiology - Last 24 Hours (Table) 10/25/23 15:20 Blood Culture - Preliminary Blood 10/25/23 15:31 Blood Culture - Preliminary Blood Assessment and Plan Assessment: 1. Acute kidney injury ATN secondary to hypotension. Possible underlying urine retention as well. Currently with indwelling Leach catheter. Noe inhibitors are on hold. Ultrasound shows no evidence of obstructive uropathy. Multiple cysts noted on the right kidney. UA shows 1+ protein no blood on 10/25/2023. Repeat urine specimen on was likely a Leach specimen with moderate blood noted. 2. Mental status changes related to hypotension and possibly related to advanced acute kidney injury. Currently improved with improving renal function. 3. Anion gap metabolic acidosis secondary to acute kidney injury and lactic acidosis 4. Anemia with recent history of massive GI bleed status post multiple packed RBCs transfusion and abdominal surgery with resection of large portion of the colon and ileostomy Plan: Continue with IV fluids DC bicarb drip Continue with Leach catheter Okay to add NOE inhibitor's as blood pressure remains on the higher side
--- NOTE | 2023-10-29 13:23 | P.PN ---
Subjective Progress Note Date: 10/28/23 Principal diagnosis: Reason for follow-up is urinary tract infection Patient is a 63-year-old -Luxembourger male with a past medical history significant for CVA TIA with the residual right-sided weakness also with a history of diabetes mellitus hypertension hyperlipidemia sleep apnea. On today's evaluation that is 10/28/2023,the patient remains to be afebrile, patient is on 2 L nasal cannula supplemental oxygen and denies any shortness of breath no chest pain or cough.Patient denies having any nausea or vomiting, no abdominal pain and no diarrhea has been reported. Patient did have a white count of 7.0, creatinine is 1.24 Objective - Vital Signs Vital signs: Vital Signs Temp 97.7 F 10/28/23 03:28 Pulse 93 10/28/23 08:00 Resp 16 10/28/23 08:00 BP 130/63 10/28/23 08:00 Pulse Ox 100 10/28/23 08:00 FiO2 Intake & Output 10/27/23 10/28/23 10/28/23 18:59 06:59 18:59 Intake Total 120 Output Total 1000 1300 550 Balance -1000 -1180 -550 Intake: Oral 120 Output: Urine 850 1150 550 Uretheral (Leach) 500 Stool 150 150 Other: Voiding Method Indwelling Catheter Indwelling Catheter Indwelling Catheter - Exam GENERAL DESCRIPTION: Middle-age male lying in bed in no distress RESPIRATORY SYSTEM: Unlabored breathing , decreased breath sounds at bases HEART: S1 S2 regular rate and rhythm , ABDOMEN: Soft , no tenderness EXTREMITIES: No edema feet - Labs CBC & Chem 7: 10/29/23 07:39 10/29/23 07:39 Labs: Abnormal Lab Results - Last 24 Hours (Table) 10/27/23 10/27/23 10/27/23 Range/Units 06:12 12:42 16:44 RBC (4.30-5.90) m/uL Hgb (13.0-17.5) gm/dL Hct (39.0-53.0) % POC Glucose (mg/dL) 134 H 141 H (70-110) mg/dL Iron 21 L (65-175) UG/DL TIBC 174 L (228-460) UG/DL % Saturation 12.07 L (15.00-50.00) Transferrin 124.0 L (204.0-354.0) mg/dL 10/27/23 10/28/23 10/28/23 Range/Units 20:25 05:17 07:37 RBC 2.73 L (4.30-5.90) m/uL Hgb 8.3 L (13.0-17.5) gm/dL Hct 24.7 L (39.0-53.0) % POC Glucose (mg/dL) 137 H 141 H (70-110) mg/dL Iron (65-175) UG/DL TIBC (228-460) UG/DL % Saturation (15.00-50.00) Transferrin (204.0-354.0) mg/dL 10/28/23 Range/Units 11:32 RBC (4.30-5.90) m/uL Hgb (13.0-17.5) gm/dL Hct (39.0-53.0) % POC Glucose (mg/dL) 175 H (70-110) mg/dL Iron (65-175) UG/DL TIBC (228-460) UG/DL % Saturation (15.00-50.00) Transferrin (204.0-354.0) mg/dL Microbiology - Last 24 Hours (Table) 10/25/23 15:20 Blood Culture - Preliminary Blood 10/25/23 15:31 Blood Culture - Preliminary Blood Assessment and Plan (1) Urinary tract infection Current Visit: Yes Status: Acute Code(s): N39.0 - URINARY TRACT INFECTION, SITE NOT SPECIFIED SNOMED Code(s): 75849029 Plan: 1patient presented to hospital with weakness decreased level of responsiveness, patient did have a urinary symptoms also elevated white count positive UA concerning for symptomatic ureteric infection likely from enteric gram-negative pathogen keeping in mind her recent prolonged stay at [facility] will need to cover for resistant gram-negative 2-patient to continue with cefepime while waiting for the culture to finalize at the bedside multiple question concern answered Dictation was produced using [employer] dictation software. please excuse any grammatical, word or spelling errors. Time with Patient: Less than 30
--- NOTE | 2023-10-29 13:26 | P.PN ---
Subjective Progress Note Date: 10/29/23 Principal diagnosis: Reason for follow-up is urinary tract infection Patient is a 63-year-old -Col[place] male with a past medical history significant for CVA TIA with the residual right-sided weakness also with a history of diabetes mellitus hypertension hyperlipidemia sleep apnea. On today's evaluation that is 10/28/2023,the patient remains to be afebrile, patient is on 2 L nasal cannula supplemental oxygen and denies any shortness of breath no chest pain or cough.Patient denies having any nausea or vomiting, no abdominal pain and no diarrhea has been reported. Patient did have a white count of 7.0, creatinine is 1.24 Objective - Vital Signs Vital signs: Vital Signs Temp 98.4 F 10/29/23 08:00 Pulse 70 10/29/23 08:00 Resp 16 10/29/23 08:00 BP 155/87 10/29/23 08:00 Pulse Ox 96 10/29/23 08:00 FiO2 Intake & Output 10/28/23 10/29/23 10/29/23 18:59 06:59 18:59 Intake Total 236 20 Output Total 800 975 150 Balance -564 -955 -150 Intake: IV 20 Invasive Line 1 10 Invasive Line 2 10 Oral 236 Output: Urine 800 725 Stool 250 150 Other: Voiding Method Indwelling Catheter Indwelling Catheter Indwelling Catheter - Exam GENERAL DESCRIPTION: Middle-age male lying in bed in no distress RESPIRATORY SYSTEM: Unlabored breathing , decreased breath sounds at bases HEART: S1 S2 regular rate and rhythm , ABDOMEN: Soft , no tenderness EXTREMITIES: No edema feet - Labs CBC & Chem 7: 10/29/23 07:39 10/29/23 07:39 Labs: Abnormal Lab Results - Last 24 Hours (Table) 10/28/23 10/28/23 10/28/23 Range/Units 07:37 16:42 20:00 RBC (4.30-5.90) m/uL Hgb (13.0-17.5) gm/dL Hct (39.0-53.0) % Potassium 3.1 L (3.5-5.1) mmol/L BUN 23 H (9-20) mg/dL Glucose 124 H (74-99) mg/dL POC Glucose (mg/dL) 163 H 151 H (70-110) mg/dL Calcium (8.4-10.2) mg/dL 10/29/23 10/29/23 10/29/23 Range/Units 06:17 07:39 07:39 RBC 2.85 L (4.30-5.90) m/uL Hgb 8.2 L (13.0-17.5) gm/dL Hct 25.2 L (39.0-53.0) % Potassium 3.1 L (3.5-5.1) mmol/L BUN (9-20) mg/dL Glucose 120 H (74-99) mg/dL POC Glucose (mg/dL) 133 H (70-110) mg/dL Calcium 8.3 L (8.4-10.2) mg/dL 10/29/23 Range/Units 11:28 RBC (4.30-5.90) m/uL Hgb (13.0-17.5) gm/dL Hct (39.0-53.0) % Potassium (3.5-5.1) mmol/L BUN (9-20) mg/dL Glucose (74-99) mg/dL POC Glucose (mg/dL) 161 H (70-110) mg/dL Calcium (8.4-10.2) mg/dL Microbiology - Last 24 Hours (Table) 10/25/23 15:20 Blood Culture - Preliminary Blood 10/25/23 15:31 Blood Culture - Preliminary Blood Assessment and Plan (1) Urinary tract infection Current Visit: Yes Status: Acute Code(s): N39.0 - URINARY TRACT INFECTION, SITE NOT SPECIFIED SNOMED Code(s): 72369742 Plan: 1patient presented to hospital with weakness decreased level of responsiveness, patient did have a urinary symptoms also elevated white count positive UA concerning for symptomatic ureteric infection likely from enteric gram-negative pathogen keeping in mind her recent prolonged stay at [facility] will need to cover for resistant gram-negative 2-patient has shown clinical improvement, continue with cefepime, repeat UA as no cultures were don faustino initial sample Dictation was produced using [employer] dictation software. please excuse any grammatical, word or spelling errors. Time with Patient: Less than 30
[2023-10-29 14:11] LABS: Appearance,Urine Clear (Clear); Bacteria,Urine Rare /hpf; Bilirubin,Urine Negative (Negative); Blood,Urine Small (Negative); Color,Urine Colorless; Glucose,Urine (UA) 3+ (Negative); Ketones,Urine Negative (Negative); Leukocyte Esterase,Urine Negative (Negative); Nitrite,Urine Negative (Negative); Protein,Urine Negative (Negative); RBC,Urine 6 /hpf (0-5); Specific Gravity,Urine 1.009 (1.001-1.035); Urobilinogen,Urine <2.0 mg/dL (<2.0); WBC,Urine 1 /hpf (0-5)
--- NOTE | 2023-10-29 14:34 | P.PN ---
Subjective Progress Note Date: 10/29/23 CHIEF COMPLAINT: Hypotension and unresponsiveness HISTORY OF PRESENT ILLNESS: Patient brought in from [facility] due to hypotension, unresponsiveness and concerns for possible seizure. Surgical service following in regards to his anemia. Patient has had no bloody output from his ileostomy. Hgb stable 8.2. Patient is receiving IV iron. Patient does report some discomfort in the left lower quadrant. Patient reports decreased appetite. PHYSICAL EXAM: VITAL SIGNS: Reviewed GENERAL: Well-developed in no acute distress. HEENT: No sclera icterus. Extraocular movements grossly intact. Moist buccal mucosa. Head is atraumatic, normocephalic. Hears conversational speech. No nasal drainage. NECK: Supple without lymphadenopathy. CHEST: Non-labored respirations and equal bilateral excursions. CARDIOVASCULAR: Palpable 2+ radial pulses. ABDOMEN: Soft. Nondistended. Tender in the left lower quadrant. Ileostomy with light pink stoma. Stool is thick and greenish in color MUSCULOSKELETAL: No clubbing or cyanosis. NEUROLOGIC: No focal or lateralizing signs. Cranial nerves II through XII grossly intact. PSYCH: Appropriate affect. Alert and oriented to person, place and time. SKIN: Well perfused. Good skin turgor. ASSESSMENT: 1. Anemia. No signs of active bleeding at this time 2. Recent GI bleed, likely diverticular bleed with colectomy and ileostomy placement about 3 weeks ago at [facility] 3. Hypotension improved with IV fluids 4. Acute kidney injury resolved 5. Altered mental status 6. Elevated troponin, followed by cardiology, acute coronary syndrome ruled out by cardiac PLAN: -No plans for endoscopy -Continue to monitor hemoglobin -Continue to monitor for any signs or symptoms of bleeding -Agree with IV iron -Add Ensure protein drinks Physician Metalizing Machine Operator note has been reviewed by physician. Signing provider agrees with the documented findings, assessment, and plan of care. Objective - Vital Signs Vital signs: Vital Signs Temp 98.4 F 10/29/23 08:00 Pulse 70 10/29/23 08:00 Resp 16 10/29/23 08:00 BP 155/87 10/29/23 08:00 Pulse Ox 96 10/29/23 08:00 FiO2 Intake & Output 10/28/23 10/29/23 10/29/23 18:59 06:59 18:59 Intake Total 236 20 118 Output Total 800 975 950 Balance -564 -955 -832 Intake: IV 20 Invasive Line 1 10 Invasive Line 2 10 Oral 236 118 Output: Urine 800 725 800 Stool 250 150 Other: Voiding Method Indwelling Catheter Indwelling Catheter Indwelling Catheter - Labs CBC & Chem 7: 10/29/23 07:39 10/29/23 07:39 Labs: Abnormal Lab Results - Last 24 Hours (Table) 10/28/23 10/28/23 10/28/23 Range/Units 07:37 16:42 20:00 RBC (4.30-5.90) m/uL Hgb (13.0-17.5) gm/dL Hct (39.0-53.0) % Potassium 3.1 L (3.5-5.1) mmol/L BUN 23 H (9-20) mg/dL Glucose 124 H (74-99) mg/dL POC Glucose (mg/dL) 163 H 151 H (70-110) mg/dL Calcium (8.4-10.2) mg/dL Magnesium (1.6-2.3) mg/dL Urine Glucose (UA) (Negative) Urine Blood (Negative) Urine RBC (0-5) /hpf Urine Bacteria (None) /hpf 10/29/23 10/29/23 10/29/23 Range/Units 06:17 07:39 07:39 RBC 2.85 L (4.30-5.90) m/uL Hgb 8.2 L (13.0-17.5) gm/dL Hct 25.2 L (39.0-53.0) % Potassium 3.1 L (3.5-5.1) mmol/L BUN (9-20) mg/dL Glucose 120 H (74-99) mg/dL POC Glucose (mg/dL) 133 H (70-110) mg/dL Calcium 8.3 L (8.4-10.2) mg/dL Magnesium (1.6-2.3) mg/dL Urine Glucose (UA) (Negative) Urine Blood (Negative) Urine RBC (0-5) /hpf Urine Bacteria (None) /hpf 10/29/23 10/29/23 10/29/23 Range/Units 07:39 11:28 14:03 RBC (4.30-5.90) m/uL Hgb (13.0-17.5) gm/dL Hct (39.0-53.0) % Potassium (3.5-5.1) mmol/L BUN (9-20) mg/dL Glucose (74-99) mg/dL POC Glucose (mg/dL) 161 H (70-110) mg/dL Calcium (8.4-10.2) mg/dL Magnesium 1.4 L (1.6-2.3) mg/dL Urine Glucose (UA) 3+ H (Negative) Urine Blood Small H (Negative) Urine RBC 6 H (0-5) /hpf Urine Bacteria Rare H (None) /hpf Microbiology - Last 24 Hours (Table) 10/25/23 15:20 Blood Culture - Preliminary Blood 10/25/23 15:31 Blood Culture - Preliminary Blood
[2023-10-29] MEDS ORDERED: Magnesium Replacement Protocol 1 EACH MISC MISCELLANE PRN (14:37)
[2023-10-29] MEDS: POTASSIUM CHLORIDE ER 20 MEQ TAB.ER PO SCH (15:46)
[2023-10-29] MEDS: MAGNESIUM SULFATE-D5W PMX 1 GM in DEXTROSE/WATER 1 100ML.BAG IVPB SCH (15:46)
[2023-10-29] MEDS: IOPAMIDOL CONTRAST (ORAL USE) VIAL PO PRN (15:46)
--- NOTE | 2023-10-29 15:46 | P.PN ---
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 at bedside reports she was told by Kevin that patient had a seizure. On admission, Leach catheter was placed with immediate return of 500 mL of urine followed by another 600ml. Hypotensive on admission with lowest blood pressure recorded as 65/50, heart rate 85, respiratory rate 20, maintaining O2 sats of 100% on 4 L nasal cannula, temper ature pending. Received multiple fluid boluses and currently receiving IV fluid hydration of saline 130 MLS per hour. Serum creatinine was 5.5, currently 4.96, baseline creatinine 1. Bicarb 17, bicarb drip ordered. Chest x-ray reported no acute cardiopulmonary disease/process. Brain CT reported no acute intracranial abnormality, 2 cm area of encephalomalacia within the left occipital parietal lobe likely related to remote infarct. Denies chest pain, palpitations .troponin elevated 1.250, repeat level ordered. 10/27/2023 troponins 1.250, 0.334, 0.277 , evaluated by cardiology, echo ordered. Evaluated by neurology, EEG pending. cefepime initiated per infectious disease. UA reporting moderate triple phosphate crystals, greater than 10 urine WBCs, moderate leukocytes, negative nitrates, moderate blood, 1+ close, 1+ protein. Sensorium significantly improved.Maintained on IV bicarb, bicarb remains at 17 and Leach catheter secondary to urinary retention. Creatinine improving, decreased to 2.85. hemoglobin 8, platelets 200. Reticulocyte count within normal limits, 1. No bleeding. denies abdominal pain. Blood pressures soft. 10/28/2023 at bedside reports patient's mental status/dysarthria is at about 47 % of baseline. EEG reported abnormal due to background slowing of moderate degree suggestive of generalized cerebral dysfunction, can be seen with toxic metabolic encephalopathy or related to diffuse structural brain abnormality, no epileptiform activity seen. Just returned back from brain MRI. Echocardiogram reported normal LV function.hemoglobin 8.3 with no bleeding noted. Iron 21. 24- hour I AND O reporting urine output of 2 L. BMP pending. 10/29/2023 Mentation improved .telemetry sinus rhythm, denies chest pain, palpitations or shortness of breath. Significant improvement in renal function, BUN 14, creatinine 0.9. Antihypertensives remain on hold, blood pressures running higher , systolic blood pressure in the 150s, nephrology okayed resuming lisinopril .Bicarb 30, Bicarb Drip Discontinued. continue O2 sats in the high 90s on room air. Continues on cefepime as per ID, Afebrile, normal WBC. Denies nausea, vomiting or diarrhea. Denies abdominal pain or tenderness. hemoglobin 8.2, platelets 190. Potassium 3.9, potassium supplementation ordered, magnesium level added on. Blood sugars controlled. MRI reported subcortical edema noted within the left high parietal lobe compatible with acute CVA, also focal area of increased signal within the right centrum semiovale. Plavix started as per neurology related to patient failed aspirin regime. Potassium 3.1, supplements ordered. Magnesium level ordered. Hemoglobin 8.2, platelets 190. Denies chest pain, palpitations or shortness of breath. Objective - Vital Signs Vital signs: Vital Signs Temp 98.4 F 10/29/23 08:00 Pulse 70 10/29/23 08:00 Resp 16 10/29/23 08:00 BP 155/87 10/29/23 08:00 Pulse Ox 96 10/29/23 08:00 FiO2 Intake & Output 10/28/23 10/29/23 10/29/23 18:59 06:59 18:59 Intake Total 236 20 Output Total 800 975 150 Balance -564 -955 -150 Intake: IV 20 Invasive Line 1 10 Invasive Line 2 10 Oral 236 Output: Urine 800 725 Stool 250 150 Other: Voiding Method Indwelling Catheter Indwelling Catheter Indwelling Catheter - Exam PHYSICAL EXAM: VITAL SIGNS: [As above] GENERAL: Alert and oriented x 2-3, sitting up in bed, no acute distress extremely attentive and participating in discussion at bedside. HEENT: Normocephalic conjunctivae normal. eyes normal. NECK: Supple, no JVD. CARDIOVASCULAR: S1, S2 regular.No murmur RESPIRATION: Unlabored, equal air entry, breath sounds diminished in the bases. ABDOMEN: Soft, nontender . No guarding, ileostomy with greenish drainage, light pink stoma. LEGS: No edema. no swelling NERVOUS SYSTEM: Limited exam -cranial nerves II through XII grossly intact.URIAS. Chronic residual right-sided weakness. Skin: Warm and dry, no rash noted. - Labs CBC & Chem 7: 10/29/23 07:39 10/29/23 07:39 Labs: Abnormal Lab Results - Last 24 Hours (Table) 10/28/23 10/28/23 10/28/23 Range/Units 07:37 16:42 20:00 RBC (4.30-5.90) m/uL Hgb (13.0-17.5) gm/dL Hct (39.0-53.0) % Potassium 3.1 L (3.5-5.1) mmol/L BUN 23 H (9-20) mg/dL Glucose 124 H (74-99) mg/dL POC Glucose (mg/dL) 163 H 151 H (70-110) mg/dL Calcium (8.4-10.2) mg/dL 10/29/23 10/29/23 10/29/23 Range/Units 06:17 07:39 07:39 RBC 2.85 L (4.30-5.90) m/uL Hgb 8.2 L (13.0-17.5) gm/dL Hct 25.2 L (39.0-53.0) % Potassium 3.1 L (3.5-5.1) mmol/L BUN (9-20) mg/dL Glucose 120 H (74-99) mg/dL POC Glucose (mg/dL) 133 H (70-110) mg/dL Calcium 8.3 L (8.4-10.2) mg/dL 10/29/23 Range/Units 11:28 RBC (4.30-5.90) m/uL Hgb (13.0-17.5) gm/dL Hct (39.0-53.0) % Potassium (3.5-5.1) mmol/L BUN (9-20) mg/dL Glucose (74-99) mg/dL POC Glucose (mg/dL) 161 H (70-110) mg/dL Calcium (8.4-10.2) mg/dL Microbiology - Last 24 Hours (Table) 10/25/23 15:20 Blood Culture - Preliminary Blood 10/25/23 15:31 Blood Culture - Preliminary Blood Assessment and Plan Assessment: Change in mental status, metabolic encephalopathy, ruling out CVA in a patient with history of 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 Brain MRI reported acute bilateral CVAs- high left parietal lobe and small focal area of ischemia in the right centrum semiovale. Ruling out cardioembolic source.Possible PFO vs ASD on prior echo, not visualized on repeat echo. Cardiology recommending possible outpatient TOMASA after acute issues have resolved. Hypotension, improved with IV fluid hydration; now hypertensive Dehydration secondary to the above Acute renal failure secondary to ATN related to hypotension, urinary retention, medications. Resolved. Seizure activity reported by , recently while inpatient at [facility], also possibly at [facility], suspect hemodynamic related as well as related to acute renal failure. Metabolic acidosis secondary to #1 Possible acute UTI, original UA not available, UA with reflex to culture reordered. Elevated troponins, not suggestive of acute coronary syndrome as per cardiology. Lactic acidosis resolved with IV fluid hydration Acute anemia, in a patient with recent history of recent colectomy with ileostomy, massive GI bleed with multiple units of packed RBC transfusions at [facility], possibly hemodilutional, iron deficient. Close monitoring. Urinary retention, requiring Leach catheter Diabetes mellitus, hemoglobin A1c 5.7 Hypertension Hyperlipidemia Sleep apnea Former nicotine dependence Plan: Continue on current medication regime, monitoring and symptomatic treatment. IV fluids as per nephrology. Hypertensive, resuming NIYAH inhibitor. Antibiotics as per infectious disease .Plavix initiated given aspirin failure as per neurology. Discussed with at bedside -if any presentation of bleeding will discontinue given patient's history of massive GI bleed .Close monitoring of hemoglobin, renal function, with repeat labs ordered for a.m. No antiepileptic medication as per neurology as seizure was likely provoked to hemodynamic and metabolic dysfunction as well as EEG did not reveal any epileptiform activity .PT/OT. Potential discharge planning in progress for tomorrow to [facility] subacute rehab pending final DC recommendations and clearance from infectious disease, cardiology, neurology and nephrology. Prognosis guarded given multiple complex medical issues. The impression and plan of care has been dictated as directed. : I performed a history and examination of this patient, discussed the same with the dictator. I agree with the dictator's note ,documented as a scribe. Any additional findings or plans will be noted.
--- NOTE | 2023-10-29 16:19 | P.EN ---
Had physician to physician communication with Dr. Cardozo. Dr Cardozo is concerned about embolic etiology of patient's CVA. Patient has had 4 CVAs in the past. Will plan for TOAMSA tomorrow
[2023-10-29 17:24] LABS: Glucose,Whole Blood 141 mg/dL (70-110)
[2023-10-29] MEDS: POTASSIUM CHLORIDE 20 MEQ in WATER FOR INJECTION 1 100ML.BAG IVPB SCH (18:12)
--- NOTE | 2023-10-29 20:01 | CT ---
EXAMINATION TYPE: CT abdomen pelvis wo con DATE OF EXAM: 10/29/2023 HISTORY: LLQ pain. Inpatient. TECHNIQUE: CT scan of the abdomen and pelvis is performed without oral or IV contrast.CT DLP: 416.2 mGycm. Automated Exposure Control for Dose Reduction was Utilized. COMPARISON: NONE FINDINGS: LUNG BASES: No acute process. Mild cardiomegaly noted. LIVER/GB: No acute process. PANCREAS: Unremarkable. SPLEEN: No significant abnormality is seen. ADRENALS: No nodules. KIDNEYS: No acute process. Three right renal cystic masses noted measuring from 2 cm-5 cm. BOWEL: Oral contrast is present. Stomach is distended. No small or large bowel dilation. No inflammat ion. Left lower quadrant bowel loops are not opacified with oral contrast and, so, are not well visua lized. However, there is no definite lower quadrant acute process. PERITONEAL CAVITY: No pneumoperitoneum or fluid. PELVIC VISCERA: Leach catheter noted. No gross abnormality seen. LYMPH NODES: No greater than 1 cm abdominal or pelvic lymph nodes are appreciated. OSSEOUS STRUCTURES: No significant abnormality is seen. Limitation of the study: Without IV contrast there is limited CT sensitivity for focal visceral lesions, intraluminal filling defects, intravascular pathology. IMPRESSION: No definite acute process.
[2023-10-29 20:18] LABS: Glucose,Whole Blood 142 mg/dL (70-110)
[2023-10-30] MEDS: CEFEPIME 2 GM in SODIUM CHLORIDE 0.9% 100 ML IVPB SCH (02:28)
[2023-10-30 06:11] LABS: Glucose,Whole Blood 155 mg/dL (70-110)
[2023-10-30] MEDS: lisinopriL 20 MG TAB PO SCH (08:30)
[2023-10-30] MEDS: IV FLUID CONTINUATION 1,000 ML IV ONE (11:43)
--- NOTE | 2023-10-30 11:50 | P.PN ---
Subjective Progress Note Date: 10/29/23 Patient was seen for a follow-up. Patient's was present today. She believes that he is about 80% better. He is still slightly delayed and slurred speech. He is slowly improving. Patient denies any headache. No new focal symptoms. Objective - Vital Signs Vital signs: Vital Signs Temp 98.8 F 10/29/23 12:00 Pulse 98 10/29/23 14:00 Resp 18 10/29/23 14:00 BP 150/85 10/29/23 12:00 Pulse Ox 98 10/29/23 12:00 FiO2 Intake & Output 10/28/23 10/29/23 10/29/23 18:59 06:59 18:59 Intake Total 236 20 118 Output Total 603 521 3244 Balance -564 -955 -982 Intake: IV 20 Invasive Line 1 10 Invasive Line 2 10 Oral 236 118 Output: Urine 800 725 800 Stool 250 300 Other: Voiding Method Indwelling Catheter Indwelling Catheter Indwelling Catheter - Exam Patient is much more alert and awake. Patient speech is mild to moderately dysarthric. No aphasia. Patient knows it is October 2023 and that he is in [facility] in [place]. Patient's mentions that he did have some slurred speech before after his previous stroke but has got worse with this current 1. Cranial nerves significant for right facial droop, although better than yesterday. Tongue protrudes slightly to the right. Visual wu are full with no neglect. Extraocular muscles are intact. Right shoulder shrug is decreased. On muscle strength testing, the strength is completely normal in the left arm and left leg. Patient's right arm is very weak almost 0. Right hip flexion 4+, ankle dorsiflexion 0. Sensory to touch is equal with no neglect. - Labs CBC & Chem 7: 10/29/23 07:39 10/29/23 07:39 Labs: Abnormal Lab Results - Last 24 Hours (Table) 10/28/23 10/28/23 10/28/23 Range/Units 07:37 16:42 20:00 RBC (4.30-5.90) m/uL Hgb (13.0-17.5) gm/dL Hct (39.0-53.0) % Potassium 3.1 L (3.5-5.1) mmol/L BUN 23 H (9-20) mg/dL Glucose 124 H (74-99) mg/dL POC Glucose (mg/dL) 163 H 151 H (70-110) mg/dL Calcium (8.4-10.2) mg/dL Magnesium (1.6-2.3) mg/dL Urine Glucose (UA) (Negative) Urine Blood (Negative) Urine RBC (0-5) /hpf Urine Bacteria (None) /hpf 10/29/23 10/29/23 10/29/23 Range/Units 06:17 07:39 07:39 RBC 2.85 L (4.30-5.90) m/uL Hgb 8.2 L (13.0-17.5) gm/dL Hct 25.2 L (39.0-53.0) % Potassium 3.1 L (3.5-5.1) mmol/L BUN (9-20) mg/dL Glucose 120 H (74-99) mg/dL POC Glucose (mg/dL) 133 H (70-110) mg/dL Calcium 8.3 L (8.4-10.2) mg/dL Magnesium (1.6-2.3) mg/dL Urine Glucose (UA) (Negative) Urine Blood (Negative) Urine RBC (0-5) /hpf Urine Bacteria (None) /hpf 10/29/23 10/29/23 10/29/23 Range/Units 07:39 11:28 14:03 RBC (4.30-5.90) m/uL Hgb (13.0-17.5) gm/dL Hct (39.0-53.0) % Potassium (3.5-5.1) mmol/L BUN (9-20) mg/dL Glucose (74-99) mg/dL POC Glucose (mg/dL) 161 H (70-110) mg/dL Calcium (8.4-10.2) mg/dL Magnesium 1.4 L (1.6-2.3) mg/dL Urine Glucose (UA) 3+ H (Negative) Urine Blood Small H (Negative) Urine RBC 6 H (0-5) /hpf Urine Bacteria Rare H (None) /hpf Microbiology - Last 24 Hours (Table) 10/25/23 15:20 Blood Culture - Preliminary Blood 10/25/23 15:31 Blood Culture - Preliminary Blood Assessment and Plan Assessment: * Acute stroke, involving the high left parietal lobe and also a small focal area of ischemia in the right centrum semiovale. Strokes are bilateral, therefore need to rule out cardio-embolic source. * Seizure, likely due to hemodynamic and metabolic dysfunction. Patient was very hypotensive with blood pressure 70/28 likely triggering the seizure. Perhaps acute on chronic renal insufficiency, hyperkalemia may be contributing to the seizure. * Acute renal failure, resolved * Hyperkalemia, resolved * Lactic acidosis, resolved * Elevated troponin, improving, cardiology on board. * Anemia with recent history of massive GI bleed status post multiple packed RBC transfusion and colectomy with ileostomy. 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 * Evidence of chronic left occipital lobe CVA which is new since his most recent brain imaging of MRI 01/14/2022 * Hypertension * Diabetes, well-controlled, with hemoglobin A1c 5.7. * Previous 2D echo reported small PFO versus ASD. Cardiology following. Plan: * Patient's neurological examination is improving. He still has some slurred speech, and slightly slow mentation more than baseline. He continues to be right hemiplegic, which is chronic from before. * MRI of the brain revealed subcortical edema noted within the high left parietal lobe compatible with acute CVA. There is also focal area of increased signal within the right centrum semiovale. I reviewed MRI agree with the findings. * Patient was taking aspirin 81 mg daily, therefore has failed aspirin regimen. We will switch to Plavix 75 mg daily. I informed nurse to check with the primary physician to get clearance before starting Plavix. * 2D echo revealed normal left ventricular systolic function with EF 50 to 55%. Left ventricular cavity size normal. Mildly increased septal wall thickness. Right atrium not well-visualized. Normal left atrial size. Most of the valves not visualized. * Patient is having recurrent embolic strokes. He has now at least 4 different areas of ischemic infarctions over the last few years. Patient has history of possible PFO. 2D echo was of poor quality. Strongly recommend TOMASA for further evaluation of embolic source. I informed the cardiology team for TOMASA. * Patient's seizure is likely provoked due to reasons mentioned above. * EEG was abnormal due to background slowing of moderate degree, suggestive of generalized cerebral dysfunction as can be seen with toxic metabolic encephalopathy or related to diffuse structural brain abnormality. Clinical correlation is recommended. No epileptiform activity was seen. * No indication of antiepileptic medication, as the seizure was likely provoked due to hemodynamic and metabolic dysfunction, and the EEG did not reveal any epileptiform activity. * Patient has elevated cardiac enzymes. Cardiology on board. Patient used to be on aspirin 81 mg daily. He has failed aspirin regimen. We have switched f rom aspirin to Plavix 75 mg daily. Primary has cleared for Plavix for now closely watching his hemoglobin. Hemoglobin stable. * Nephrology on board for acute renal failure, now resolved. * Hemoglobin A1c 5.9 on 07/24/2023 * Patient has possible UTI, ID on board, started on cefepime. * Telemetry monitoring showing sinus rhythm, sinus tachycardia in the 130s with some ectopy. No other arrhythmia. * Lipid panel with cholesterol 115, LDL 49, HDL 51, triglycerides 70 on 07/24/2023. Continue Lipitor 80 mg daily. * Other medical management as per IM and other specialties.
[2023-10-30] MEDS: MIDAZOLAM 2 MG/2 ML VIAL IVP ONE ×2 (11:55→12:04)
[2023-10-30] MEDS: fentaNYL (PF) 50 MCG/ML 2 ML AMP IVP ONE (11:55)
[2023-10-30] MEDS: BENZOCAINE SPRAY 1 CAN MUCOUS MEM ONE (11:55)
[2023-10-30 13:08] LABS: Glucose,Whole Blood 128 mg/dL (70-110)
--- NOTE | 2023-10-30 13:31 | P.PN ---
Subjective Progress Note Date: 10/30/23 CHIEF COMPLAINT: Hypotension and unresponsiveness HISTORY OF PRESENT ILLNESS: [facility], unresponsiveness and concerns for possible seizure. Surgical service following in regards to his anemia. Patient has had no bloody output from his ileostomy. Hgb stable 8.2 as of yesterday. Patient is receiving IV iron. Patient's abdominal pain has resolved. CT scan abdomen and pelvis no definite acute process reported. PHYSICAL EXAM: VITAL SIGNS: Reviewed GENERAL: Well-developed in no acute distress. HEENT: No sclera icterus. Extraocular movements grossly intact. Moist buccal mucosa. Head is atraumatic, normocephalic. Hears conversational speech. No nasal drainage. NECK: Supple without lymphadenopathy. CHEST: Non-labored respirations and equal bilateral excursions. CARDIOVASCULAR: Palpable 2+ radial pulses. ABDOMEN: Soft. Nondistended. Nontender ileostomy with light pink stoma. Stool is thick and greenish in color MUSCULOSKELETAL: No clubbing or cyanosis. NEUROLOGIC: No focal or lateralizing signs. Cranial nerves II through XII g rossly intact. PSYCH: Appropriate affect. Alert and oriented to person, place and time. SKIN: Well perfused. Good skin turgor. ASSESSMENT: 1. Anemia. No signs of active bleeding at this time 2. Recent GI bleed, likely diverticular bleed with colectomy and ileostomy placement about 3 weeks ago at [facility] 3. Hypotension improved with IV fluids 4. Acute kidney injury resolved 5. Altered mental status 6. Elevated troponin, followed by cardiology, acute coronary syndrome ruled out by cardiac 7. Previous hospitalization contributing to patient's iron deficiency anemia PLAN: -No plans for endoscopy -Continue to monitor hemoglobin -Continue to monitor for any signs or symptoms of bleeding -Agree with IV iron -Continue Ensure protein drinks Physician Lockstitch Cup Setter note has been reviewed by physician. Signing provider agrees with the documented findings, assessment, and plan of care. Objective - Vital Signs Vital signs: Vital Signs Temp 98.9 F 10/30/23 08:00 Pulse 136 H 10/30/23 12:40 Resp 17 10/30/23 12:40 BP 128/91 10/30/23 12:40 Pulse Ox 96 10/30/23 12:40 FiO2 Intake & Output 10/29/23 10/30/23 10/30/23 18:59 06:59 18:59 Intake Total 118 450 100 Output Total 1650 1300 575 [id number] -850 -475 Intake: IV 10 100 Invasive Line 2 10 Oral 118 440 Output: Urine 1300 1000 575 Stool 350 300 Other: Voiding Method Indwelling Catheter Indwelling Catheter Indwelling Catheter - Labs CBC & Chem 7: 10/29/23 07:39 10/29/23 07:39 Labs: Abnormal Lab Results - Last 24 Hours (Table) 10/29/23 10/29/23 10/29/23 Range/Units 14:03 17:22 20:15 POC Glucose (mg/dL) 141 H 142 H (70-110) mg/dL Urine Glucose (UA) 3+ H (Negative) Urine Blood Small H (Negative) Urine RBC 6 H (0-5) /hpf Urine Bacteria Rare H (None) /hpf 10/30/23 10/30/23 Range/Units 06:08 12:49 POC Glucose (mg/dL) 155 H 128 H (70-110) mg/dL Urine Glucose (UA) (Negative) Urine Blood (Negative) Urine RBC (0-5) /hpf Urine Bacteria (None) /hpf
--- NOTE | 2023-10-30 15:12 | P.PN ---
Subjective Patient is seen for follow-up for acute kidney injury. Renal function has improved significantly with IV hydration and Leach catheter placement for urine retention. Mentation has improved significantly. Serum creatinine decreased to 0.9 from 5.5 on initial admission. Good urine output. Maintained on normal saline at 75 cc an hour. Objective - Vital Signs Vital signs: Vital Signs Temp 98.9 F 10/30/23 08:00 Pulse 136 H 10/30/23 12:40 Resp 17 10/30/23 12:40 BP 128/91 10/30/23 12:40 Pulse Ox 96 10/30/23 12:40 FiO2 Intake & Output 10/29/23 10/30/23 10/30/23 18:59 06:59 18:59 Intake Total 118 450 100 Output Total 1650 1300 575 Balance -1532 -850 -475 Intake: IV 10 100 Invasive Line 2 10 Oral 118 440 Output: Urine 1300 1000 575 Stool 350 300 Other: Voiding Method Indwelling Catheter Indwelling Catheter Indwelling Catheter - Exam Patient is awake, confused. Not in any acute distress. Mentation is improved Examination of the heart S1 and S2 Examination of the lungs bilateral breath sounds are heard Abdomen is soft nontender, ileostomy noted Examination of lower extremity shows no evidence of edema Patient is moving all 4 extremities - Labs CBC & Chem 7: 10/29/23 07:39 10/29/23 07:39 Labs: Abnormal Lab Results - Last 24 Hours (Table) 10/29/23 10/29/23 10/30/23 Range/Units 17:22 20:15 06:08 POC Glucose (mg/dL) 141 H 142 H 155 H (70-110) mg/dL 10/30/23 Range/Units 12:49 POC Glucose (mg/dL) 128 H (70-110) mg/dL Assessment and Plan Assessment: 1. Acute kidney injury ATN secondary to hypotension. Possible underlying urine retention as well. Currently with indwelling Leach catheter. Noe inhibitors are on hold. Ultrasound shows no evidence of obstructive uropathy. Multiple cysts noted on the right kidney. UA shows 1+ protein no blood on 10/25/2023. Repeat urine specimen on was likely a Leach specimen with moderate blood noted. 2. Mental status changes related to hypotension and possibly related to advanced acute kidney injury. Currently improved with improving renal function. 3. Anion gap metabolic acidosis secondary to acute kidney injury and lactic acidosis, improved 4. Anemia with recent history of massive GI bleed status post multiple packed RBCs transfusion and abdominal surgery with resection of large portion of the colon and ileostomy Plan: Continue with IV fluids Continue with Leach catheter Continue with NOE inhibitors
[2023-10-30] MEDS: fentaNYL (PF) 50 MCG/ML 2 ML AMP ONE (15:33)
[2023-10-30] MEDS: FUROSEMIDE 10 MG/ML 4 ML VIAL IV STA (15:35)
[2023-10-30 15:40] VITALS: BMI 24.4
--- NOTE | 2023-10-30 16:26 | P.TEE ---
Date of Procedure: 10/30/23 (Please CC this report to Dr. Giorgi Martini and Dr. Андрей Perez) Transesophageal Echocardiogram (TOMASA) Progress Note: Please CC this report to Dr. Giorgi Martini and Dr. Андрей Perez Description of Procedure(s): Procedure performed: 1. Transesophageal Echocardiogram with color flow doppler, pulsed wave doppler and continuous wave doppler 2. Moderate conscious sedation. Sedation time [20] mins. 3. Bubble Study Indications: Recurrent CVA. I69.30 Consent: I have discussed the risks, benefits and alternative therapies for the above-mentioned procedure. The patient has indicated understanding and acceptance of the risks of the procedure. Signed consent was obtained and was placed in the paper chart. Procedural Steps: Timeout was performed in usual fashion. Patient's heart rate, blood pressure, oxygen saturation and ECG were monitored. Benzocaine was sprayed liberally in the back of the throat. Bite block was placed between the jaw. 4 mg of Versed and 75 mcg of Fentanyl were administered intravenously. After achieving appropriate moderate conscious sedation, TOMASA probe was advanced without difficulty and without any immediate complications to the esophagus. TOMASA study was performed with color flow doppler, pulsed wave doppler and continuous wave doppler. The probe was then removed. Patient tolerated the procedure well. Patient was transferred to the post procedure area in stable and satisfactory condition. Throughout the procedure patient's heart rate, blood pressure, oxygen saturation and ECG were monitored. Total sedation time [20] mins. Complications: none FINDINGS Left Atrium: Severe left atrial dilatation. Elevated LA pressures. No evidence of mass or thrombus seen Left Atrial Appendage: No evidence of thrombus or mass seen in ZACHARY. Inter atrial septum: Patent foramen ovale with [id number] shunting on color Doppler. No right to left shunting on bubble study noticed with Left Ventricle: Severely reduced global LV systolic function. Right Atrium: Normal overall RV size Right Ventricle: Normal global RV size and systolic function Aortic Valve: Structurally normal Trileaflet, trace regurgitation. No evidence of thrombus or vegetation. Mitral Valve: Struturally normal. Mild MR. No evidence of vegetation. Pulmonic Valve: No significant regurg or stenosis. No evidence of vegetation. Tricuspid Valve: Mild TR. No evidence of vegetation. Ascending aorta, Aortic root and Aortic arch: Normal size aortic root and ascending aorta. Ascending aorta measured 4.0 cm. Mild intimal thickening. Descending aorta: Mild intimal thickening. CONCLUSION: Severely reduced global LV systolic function Severely reduced LA dilatation Severely elevated LA pressures Patent foramen ovale with [id number] shunting No evidence of intracardiac thrombus No evidence of vegetation or infective endocarditis Giles Núñez MD, RPVI, FACC Thank you for allowing [facility] to participate in this patient's care. Feel free to reach out in case of any followup questions.
[2023-10-30] MEDS: METOPROLOL SUCCINATE (ER) 50 MG TAB.ER.24H PO SCH (17:02)
[2023-10-30 17:08] LABS: Glucose,Whole Blood 139 mg/dL (70-110)
[2023-10-30 18:37] LABS: Basophils % (A) 0 %; Eosinophils # (A) 0.1 k/uL (0-0.7); Eosinophils % (A) 1 %; HGB 10.3 gm/dL (13.0-17.5); Hypochromasia Slight; Lymphocytes # (A) 0.9 k/uL (1.0-4.8); Lymphocytes % (A) 5 %; MCHC 33.3 g/dL (31.0-37.0); MCV 90.3 fL (80.0-100.0); Mean Platelet Volume 8.4; Monocytes # (A) 0.4 k/uL (0-1.0); Monocytes % (A) 2 %; Neutrophils # (A) 17.3 k/uL (1.3-7.7); Neutrophils % (A) 92 %; Platelet Count 267 k/uL (150-450); Poikilocytosis Slight; RBC 3.44 m/uL (4.30-5.90); RDW 14.3 % (11.5-15.5); WBC 18.9 k/uL (3.8-10.6)
[2023-10-30 20:09] LABS: Glucose,Whole Blood 164 mg/dL (70-110)
[2023-10-30] MEDS: ATORVASTATIN 40 MG TAB PO SCH (20:21)
--- NOTE | 2023-10-31 00:56 | P.PN ---
Subjective Progress Note Date: 10/30/23 Patient was seen for a follow-up. Patient's and patient's son were present today. Patient is further better. He is still slightly delayed and slurred speech. He is slowly improving. Patient denies any headache. No new focal symptoms. Objective - Vital Signs Vital signs: Vital Signs Temp 98.9 F 10/30/23 08:00 Pulse 129 H 10/30/23 15:35 Resp 18 10/30/23 15:35 BP 128/89 10/30/23 15:35 Pulse Ox 96 10/30/23 15:35 FiO2 Intake & Output 10/30/23 10/30/23 10/31/23 06:59 18:59 06:59 Intake Total 450 100 Output Total 1300 2775 Balance -850 -2675 Weight 81.647 kg Intake: IV 10 100 Invasive Line 2 10 Oral 440 Output: Urine 1000 2775 Stool 300 Other: Voiding Method Indwelling Catheter Indwelling Catheter - Exam Patient is much more alert and awake. Patient speech is mild to moderately dysarthric. No aphasia. Patient knows it is October 2023 and that he is in [facility] in [place]. Patient's mentions that he did have some slurred speech before after his previous stroke but has got worse with this current 1. Cranial nerves significant for right facial droop, although better than yesterday. Tongue protrudes slightly to the right. Visual wu are full with no neglect. Extraocular muscles are intact. Right shoulder shrug is decreased. On muscle strength testing, the strength is completely normal in the left arm and left leg. Patient's right arm is very weak almost 0. Right hip flexion 4+, ankle dorsiflexion 0. Sensory to touch is equal with no neglect. - Labs CBC & Chem 7: 10/30/23 17:46 10/29/23 07:39 Labs: Abnormal Lab Results - Last 24 Hours (Table) 10/29/23 10/30/23 10/30/23 Range/Units 20:15 06:08 12:49 WBC (3.8-10.6) k/uL RBC (4.30-5.90) m/uL Hgb (13.0-17.5) gm/dL Hct (39.0-53.0) % Neutrophils # (1.3-7.7) k/uL Lymphocytes # (1.0-4.8) k/uL POC Glucose (mg/dL) 142 H 155 H 128 H (70-110) mg/dL 10/30/23 10/30/23 Range/Units 17:07 17:46 WBC 18.9 H (3.8-10.6) k/uL RBC 3.44 L (4.30-5.90) m/uL Hgb 10.3 L (13.0-17.5) gm/dL Hct 31.0 L (39.0-53.0) % Neutrophils # 17.3 H (1.3-7.7) k/uL Lymphocytes # 0.9 L (1.0-4.8) k/uL POC Glucose (mg/dL) 139 H (70-110) mg/dL Assessment and Plan Assessment: * Acute stroke, involving the high left parietal lobe and also a small focal area of ischemia in the right centrum semiovale. Strokes are bilateral, therefore need to rule out cardio-embolic source. * Seizure, likely due to hemodynamic and metabolic dysfunction. Patient was very hypotensive with blood pressure 70/28 likely triggering the seizure. Perhaps acute on chronic renal insufficiency, hyperkalemia may be contributing to the seizure. * Acute renal failure, resolved * Hyperkalemia, resolved * Lactic acidosis, resolved * Elevated troponin, improving, cardiology on board. * Anemia with recent history of massive GI bleed status post multiple packed RBC transfusion and colectomy with ileostomy. 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 * Evidence of chronic left occipital lobe CVA which is new since his most recent brain imaging of MRI 01/14/2022 * Hypertension * Diabetes, well-controlled, with hemoglobin A1c 5.7. * Previous 2D echo reported small PFO versus ASD. Cardiology following. Plan: * Patient's neurological examination is improving. He still has some slurred speech, and slightly slow mentation more than baseline. He continues to be right hemiplegic, which is chronic from before. * MRI of the brain revealed subcortical edema noted within the high left parietal lobe compatible with acute CVA. There is also focal area of increased signal within the right centrum semiovale. I reviewed MRI agree with the findings. * Patient was taking aspirin 81 mg daily, therefore has failed aspirin regimen. We will switch to Plavix 75 mg daily. I informed nurse to check with the primary physician to get clearance before starting Plavix. * 2D echo revealed normal left ventricular systolic function with EF 50 to 55%. Left ventricular cavity size normal. Mildly increased septal wall thickness. Right atrium not well-visualized. Normal left atrial size. Most of the valves not visualized. * Patient is having recurrent embolic strokes. He has now at least 4 different areas of ischemic infarctions over the last few years. Patient has history of possible PFO. 2D echo was of poor quality. Strongly recommend TOMASA for further evaluation of embolic source. I informed the cardiology team for TOMASA. * TOMASA revealed: Severely reduced global LV systolic function Severely reduced LA dilatation Severely elevated LA pressures Patent foramen ovale with [id number] shunting No evidence of intracardiac thrombus No evidence of vegetation or infective endocarditis Patient to follow-up with weigher and grader to consider PFO closure outpatient. * Patient's seizure is likely provoked due to reasons mentioned above. * EEG was abnormal due to background slowing of moderate degree, suggestive of generalized cerebral dysfunction as can be seen with toxic metabolic encephalopathy or related to diffuse structural brain abnormality. Clinical correlation is recommended. No epileptiform activity was seen. * No indication of antiepileptic medication, as the seizure was likely provoked due to hemodynamic and metabolic dysfunction, and the EEG did not reveal any epileptiform activity. * Patient has elevated cardiac enzymes. Cardiology on board. Patient used to be on aspirin 81 mg daily. He has failed aspirin regimen. We have switched from aspirin to Plavix 75 mg daily. Primary has cleared for Plavix for now c losely watching his hemoglobin. Hemoglobin stable today 10.3. * Nephrology on board for acute renal failure, now resolved. * Hemoglobin A1c 5.9 on 07/24/2023 * Patient has possible UTI, ID on board, started on cefepime. * Lipid panel with cholesterol 115, LDL 49, HDL 51, triglycerides 70 on 07/24/2023. Continue Lipitor 80 mg daily. * Other medical management as per IM and other specialties. * Neurologically clear for transfer to rehab facility for strengthening. Please call neurology service if any concerns. Dr. Dias starting neurology service over the weekend.
[2023-10-31 05:14] LABS: Glucose,Whole Blood 120 mg/dL (70-110)
[2023-10-31] MEDS: TAMSULOSIN 0.4 MG CAP.ER.24H PO SCH (09:48)
--- NOTE | 2023-10-31 09:50 | P.PN ---
Subjective Patient is seen in follow-up for acute kidney injury. Renal function improved with IV fluids and Leach catheter placement due to retention. Hemodynamically stable. Nonoliguric. Oral intake poor. Intermittent dry heaving. Vital signs are stable. General: No acute distress. HEENT: Head exam is unremarkable. LUNGS: No audible rhonchi or wheezes. HEART: Rate and Rhythm are regular. ABDOMEN: Nontender. EXTREMITITES: No edema. Objective - Vital Signs Vital signs: Vital Signs Temp 98.5 F 10/31/23 03:19 Pulse 99 10/31/23 03:19 Resp 18 10/31/23 03:19 BP 109/82 10/31/23 03:19 Pulse Ox 99 10/31/23 03:19 FiO2 Intake & Output 10/30/23 10/31/23 10/31/23 18:59 06:59 18:59 Intake Total 100 720 Output Total 2775 300 Balance -2675 420 Weight 81.647 kg Intake: IV 100 Oral 720 Output: Urine 2775 300 Other: Voiding Method Indwelling Catheter Indwelling Catheter - Labs CBC & Chem 7: 10/30/23 17:46 10/29/23 07:39 Labs: Abnormal Lab Results - Last 24 Hours (Table) 10/30/23 10/30/23 10/30/23 Range/Units 12:49 17:07 17:46 WBC 18.9 H (3.8-10.6) k/uL RBC 3.44 L (4.30-5.90) m/uL Hgb 10.3 L (13.0-17.5) gm/dL Hct 31.0 L (39.0-53.0) % Neutrophils # 17.3 H (1.3-7.7) k/uL Lymphocytes # 0.9 L (1.0-4.8) k/uL POC Glucose (mg/dL) 128 H 139 H (70-110) mg/dL 10/30/23 10/31/23 Range/Units 20:04 05:12 WBC (3.8-10.6) k/uL RBC (4.30-5.90) m/uL Hgb (13.0-17.5) gm/dL Hct (39.0-53.0) % Neutrophils # (1.3-7.7) k/uL Lymphocytes # (1.0-4.8) k/uL POC Glucose (mg/dL) 164 H 120 H (70-110) mg/dL Microbiology - Last 24 Hours (Table) 10/25/23 15:20 Blood Culture - Final Blood 10/25/23 15:31 Blood Culture - Final Blood Assessment and Plan Plan: Assessment: 1. Acute kidney injury secondary to ATN secondary to hypotension and urinary retention. No hydronephrosis noted on kidney ultrasound. 1+ protein and no blood on UA. Repeat UA from October 29, 2023 showed no proteinuria. Acute kidney injury now resolved. 2. Urinary retention status post Leach catheter placement. 3. Hypokalemia from poor intake and diuresis. 4. Hypomagnesemia from poor intake and diuresis. Replaced. Improved. 5. Recent GI bleed status post colectomy end ileostomy placement. Surgery following. 6. Anemia. Iron deficiency noted. Plan: Maintain IV fluids. Encouraged oral intake. Add Flomax. Okay to do trial of void. Receiving IV iron. Follow-up morning labs.
--- NOTE | 2023-10-31 10:46 | P.PN ---
Subjective Progress Note Date: 10/31/23 Principal diagnosis: Impression presented to the hospital from subacute rehab status post bowel resection secondary to GI bleed, recent acute kidney injury which is improved, compromised cardiac function which also has improved, anemia secondary to massive GI bleed with bowel resection, multiple transfusions currently stable This patient is currently hemodynamically stable amount is awake alert oriented his is in attendance, oral intake poor but improved Objective - Vital Signs Vital signs: Vital Signs Temp 98.5 F 10/31/23 08:20 Pulse 102 H 10/31/23 08:20 Resp 17 10/31/23 08:20 BP 113/77 10/31/23 08:20 Pulse Ox 97 10/31/23 08:20 FiO2 Intake & Output 10/30/23 10/31/23 10/31/23 18:59 06:59 18:59 Intake Total 100 720 Output Total 2775 300 Balance -2245 420 Weight 81.647 kg Intake: IV 100 Oral 720 Output: Urine 2775 300 Other: Voiding Method Indwelling Catheter Indwelling Catheter Indwelling Catheter - Exam General: [Patient awake, alert and oriented times 3. Patient in no acute distress.] HEENT: [PERRL. EOMI. No pharyngeal erythema or exudate.] Neck: [No adenopathy.] Cardiac: [Heart regular in rate and rhythm. No S3. No S4. No clicks, rubs. No murmur.] Lungs: [Clear to auscultation bilaterally.] Abdomen: [No mass. No organomegaly. Bowel sounds presnt and normoactive in all 4 quadrants Incision clean and dry Extremes: [No edema no cyanosis no claudication normal pulses] : Normal male genitalia Musculoskeletal: [No joint erythema, edema or tenderness.] Skin: [No rash.] Neurologic: [No lateralizing deficits. CN II - XII grossly intact.] Lymphatic: [No adenopathy.] - Labs CBC & Chem 7: 10/30/23 17:46 10/29/23 07:39 Labs: Abnormal Lab Results - Last 24 Hours (Table) 10/30/23 10/30/23 10/30/23 Range/Units 12:49 17:07 17:46 WBC 18.9 H (3.8-10.6) k/uL RBC 3.44 L (4.30-5.90) m/uL Hgb 10.3 L (13.0-17.5) gm/dL Hct 31.0 L (39.0-53.0) % Neutrophils # 17.3 H (1.3-7.7) k/uL Lymphocytes # 0.9 L (1.0-4.8) k/uL POC Glucose (mg/dL) 128 H 139 H (70-110) mg/dL 10/30/23 10/31/23 Range/Units 20:04 05:12 WBC (3.8-10.6) k/uL RBC (4.30-5.90) m/uL Hgb (13.0-17.5) gm/dL Hct (39.0-53.0) % Neutrophils # (1.3-7.7) k/uL Lymphocytes # (1.0-4.8) k/uL POC Glucose (mg/dL) 164 H 120 H (70-110) mg/dL Microbiology - Last 24 Hours (Table) 10/25/23 15:20 Blood Culture - Final Blood 10/25/23 15:31 Blood Culture - Final Blood Assessment and Plan (1) LURDES (acute kidney injury) Current Visit: Yes Status: Acute Code(s): N17.9 - ACUTE KIDNEY FAILURE, UNS PECIFIED SNOMED Code(s): 72062477 (2) AMS (altered mental status) Current Visit: Yes Status: Acute Code(s): R41.82 - ALTERED MENTAL STATUS, UNSPECIFIED SNOMED Code(s): 475133761 (3) Abdominal pain Current Visit: Yes Status: Acute Code(s): R10.9 - UNSPECIFIED ABDOMINAL PAIN SNOMED Code(s): 34703379 (4) Dehydration Current Visit: Yes Status: Acute Code(s): E86.0 - DEHYDRATION SNOMED Code(s): 68048661 (5) Urinary tract infection Current Visit: Yes Status: Acute Code(s): N39.0 - URINARY TRACT INFECTION, SITE NOT SPECIFIED SNOMED Code(s): 93755313 (6) Weakness Current Visit: Yes Status: Acute Code(s): R53.1 - WEAKNESS SNOMED Code(s): 06815996 (7) Cerebrovascular accident (CVA) Current Visit: No Status: Acute Code(s): I63.9 - CEREBRAL INFARCTION, UNSPE CIFIED SNOMED Code(s): 983026717 (8) GI bleed Current Visit: No Status: Acute Code(s): K92.2 - GASTROINTESTINAL HEMORRHAGE, UNSPECIFIED SNOMED Code(s): 80414856 Plan: The plan was to send patient to subacute rehab Patient underwent TOMASA subsequently developed sinus tachycardia Which has been controlled with addition no metoprolol rates currently in the low 90s Patient improving slowly Will reassess for subacute rehab Time with Patient: Greater than 30
[2023-10-31 11:30] LABS: HCT 30.9 % (39.0-53.0); HGB 10.1 gm/dL (13.0-17.5); Hypochromasia Slight; MCH 29.4 pg (25.0-35.0); MCHC 32.6 g/dL (31.0-37.0); MCV 90.2 fL (80.0-100.0); Mean Platelet Volume 8.3; Platelet Count 274 k/uL (150-450); RBC 3.43 m/uL (4.30-5.90); RDW 14.4 % (11.5-15.5); WBC 15.8 k/uL (3.8-10.6)
[2023-10-31 11:40] LABS: Glucose,Whole Blood 158 mg/dL (70-110)
[2023-10-31 11:50] LABS: African American GFR (CKD) >90 (>60 ml/min/1.73 sqM); Anion Gap 6 mmol/L; Blood Urea Nitrogen 12 mg/dL (9-20); Calcium 9.1 mg/dL (8.4-10.2); Carbon Dioxide 26 mmol/L (22-30); Chloride 107 mmol/L (98-107); Glucose 133 mg/dL (74-99); Magnesium 1.7 mg/dL (1.6-2.3); Non-African American GFR(CKD) 86 (>60 ml/min/1.73 sqM); Potassium 4.1 mmol/L (3.5-5.1); Sodium 139 mmol/L (137-145)
--- NOTE | 2023-10-31 12:11 | P.PN ---
Subjective Progress Note Date: 10/30/23 Principal diagnosis: Reason for follow-up is urinary tract infection Patient is a 63-year-old -[place] male with a past medical history significant for CVA TIA with the residual right-sided weakness also with a history of diabetes mellitus hypertension hyperlipidemia sleep apnea. On today's evaluation that is 10/30/2023, Patient is afebrile patient is currently on room air and denies having any shortness of breath, the patient denies any chest pain or cough, the patient denies any nausea vomiting did not have any abdominal pain and no diarrhea. No new labs were obtained today repeat urine is relatively clear Objective - Vital Signs Vital signs: Vital Signs Temp 98.3 F 10/30/23 03:22 Pulse 85 10/30/23 03:22 Resp 16 10/30/23 03:22 BP 150/93 10/30/23 03:22 Pulse Ox 99 10/30/23 03:22 FiO2 Intake & Output 10/29/23 10/30/23 10/30/23 18:59 06:59 18:59 Intake Total 118 450 Output Total 1650 1300 Balance -1532 -850 Intake: IV 10 Invasive Line 2 10 Oral 118 440 Output: Urine 1300 1000 Stool 350 300 Other: Voiding Method Indwelling Catheter Indwelling Catheter - Labs CBC & Chem 7: 10/29/23 07:39 10/29/23 07:39 Labs: Abnormal Lab Results - Last 24 Hours (Table) 10/29/23 10/29/23 10/29/23 Range/Units 07:39 11:28 14:03 POC Glucose (mg/dL) 161 H (70-110) mg/dL Magnesium 1.4 L (1.6-2.3) mg/dL Urine Glucose (UA) 3+ H (Negative) Urine Blood Small H (Negative) Urine RBC 6 H (0-5) /hpf Urine Bacteria Rare H (None) /hpf 10/29/23 10/29/23 10/30/23 Range/Units 17:22 20:15 06:08 POC Glucose (mg/dL) 141 H 142 H 155 H (70-110) mg/dL Magnesium (1.6-2.3) mg/dL Urine Glucose (UA) (Negative) Urine Blood (Negative) Urine RBC (0-5) /hpf Urine Bacteria (None) /hpf Assessment and Plan (1) Urinary tract infection Current Visit: Yes Status: Acute Code(s): N39.0 - URINARY TRACT INFECTION, SITE NOT SPECIFIED SNOMED Code(s): 38964138 Plan: 1patient presented to hospital with weakness decreased level of responsiveness, patient did have a urinary symptoms also elevated white count positive UA concerning for symptomatic ureteric infection likely from enteric gram-negative pathogen keeping in mind her recent prolonged stay at [facility] will need to cover for resistant gram-negative 2-patient has shown clinical improvement, continue with cefepime, repeat UA has shown improvement will finish therapy with oral Ceftin on discharge this was discussed with the DIRECTOR EDUCATIONAL RADIO for admitting team Care also discussed with the at the bedside Dictation was produced using [employer] dictation software. please excuse any grammatical, word or spelling errors.
--- NOTE | 2023-10-31 13:40 | P.PN ---
Subjective Progress Note Date: 10/31/23 HISTORY OF PRESENT ILLNESS: This is a 63-year-old female with a past medical history significant for hy pertension, hyperlipidemia, diabetes, CVA, and former nicotine dependence. Patient does not follow with a technical service engineer. We have been asked to see the patient in consultation for elevated troponins. Patient examined at the bedside in the emergency room. Patient's family is at the bedside. Patient was recently hospitalized at [facility] due to significant GI bleeding requiring more than 10 units of packed RBCs. Patient also underwent colon resection end ileostomy placement. Patient was discharged to [facility]. Patient's family states he was only there for less than 2 days when he began to have shortness of breath, low blood pressure, and confusion. Patient was brought to the hospital for further evaluation. Patient currently denies any chest pain or pressure. He denies any shortness of breath. DIAGNOSTICS: - EKG reveals sinus mechanism with no signs of acute ischemia. - Chest xray negative for acute process. - Laboratory data: WBC 9.9. Hemoglobin 8.3. Platelet count 219. Sodium 140. Potassium 4.2. BUN 62. Creatinine 4.96. Lactic acid 2.3. Troponin 1.250. 0.334. 0.277. - Current home cardiac medications include Procardia XL 60 mg daily, lisinopril 20 mg daily, atorvastatin 80 mg daily, and aspirin 81 mg daily. - Most recent echocardiogram obtained in July 2021 revealed ejection fraction 50 to 55%, mild MR, mild TR, possible PFO versus ASD. - Cardiac catheterization history: March [address] iMr revealing normal coronary arteries and normal left ventricular end-diastolic pressure 10/28/2023 Patient examined this morning at the bedside. Patient's family is present. Patient states he is feeling somewhat better today. He reports he has been able to tolerate some oral intake. He denies chest pain or pressure. He denies shortness of breath. Vital signs are stable. Echocardiogram completed revealing ejection fraction 50 to 55%. 10/29/2023 Patient examined this morning at the bedside. Patient's family is present. Patient denies any chest pain or pressure. He denies any shortness of breath. He states he is starting to feel little bit better. He continues to report right-sided weakness which is chronic. Telemetry reveals sinus mechanism with no evidence of atrial fibrillation. Vital signs are stable. 10/31/2023 Patient has been seen today. For last 2 to 3 days patient has been sinus tachycardic with heart rate is in 110s to 120s. We attribute this to patient's dehydration and sepsis. Yesterday TOMASA was performed which was uneventful. No postop complications. Patient's LVEF appears to be in 20% with severely reduced globally. For this I have started him on metoprolol xl 50 mg daily. I gave him 1 dose of IV Lasix 40 mg yesterday for elevated LA pressures. Today's blood pressure 103/70, heart rate 90s to 100 sinus tachycardia. ECG shows new T wave inversions diffusely. These are consistent with stress cardiomyopathy. Any chest pain chest pressure or shortness of breath. Clinically he does not appear volume overloaded but his TOMASA showed dilated left atrium with signs of elevated LA pressures. PHYSICAL EXAM: VITAL SIGNS: Reviewed. GENERAL: Well-developed in no acute distress. HEENT: Head is normocephalic. Pupils are equal, round. Sclerae anicteric. Mucous membranes of the mouth are moist. Neck supple. No JVD or thyromegaly LUNGS: Respirations even and unlabored. Lungs essentially clear to auscultation bilaterally. HEART: Regular rate and rhythm. S1 and S2 heard. EXTREMITIES: Normal range of motion. No clubbing or cyanosis. Peripheral pulses intact. No lower extremity edema ASSESSMENT: Mild HFrEF Exacerbation Stress cardiomyopathy. Cannot rule out tachycardia induced CMP. Cannot rule out iatrogenic volume overload which was given for LURDES PFO by TOMASA Hypotension and dehydration along with LURDES on admission, now resolved Abnormal troponins, not suggestive of acute coronary syndrome, likely secondary to above AMS, likely due to acute CVA involving left high parietal lobe and also small focal area of ischemia in right centrum semiovale Acute anemia, hemoglobin 12.7 on admission, now 8.3, possible hemodilution Recent colon resection with ostomy creation at [facility] Recent GI bleeding requiring more than 10 units packed RBCs History of seizure disorder Possible PFO vs ASD on prior echo, not visualized on repeat echo History of CVA, 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 Continue metoprolol XL 50 mg daily Reduce lisinopril to 5 mg daily due to low blood pressure Discontinue IV fluids Give 1 more dose of Lasix 20 mg IV Continue Plavix for CAD as per neurology recommendations Objective - Vital Signs Vital signs: Vital Signs Temp 98.5 F 10/31/23 08:20 Pulse 103 H 10/31/23 11:35 Resp 18 10/31/23 11:35 BP 106/74 10/31/23 11:35 Pulse Ox 99 10/31/23 11:35 FiO2 Intake & Output 10/30/23 10/31/23 10/31/23 18:59 06:59 18:59 Intake Total 100 720 Output Total 2775 300 850 Balance -3763 420 -850 Weight 81.647 kg Intake: IV 100 Oral 720 Output: Urine 2775 300 850 Uretheral (Leach) 300 Other: Voiding Method Indwelling Catheter Indwelling Catheter Indwelling Catheter - Labs CBC & Chem 7: 10/31/23 10:47 10/31/23 10:47 Labs: Abnormal Lab Results - Last 24 Hours (Table) 10/30/23 10/30/23 10/30/23 Range/Units 17:07 17:46 20:04 WBC 18.9 H (3.8-10.6) k/uL RBC 3.44 L (4.30-5.90) m/uL Hgb 10.3 L (13.0-17.5) gm/dL Hct 31.0 L (39.0-53.0) % Neutrophils # 17.3 H (1.3-7.7) k/uL Lymphocytes # 0.9 L (1.0-4.8) k/uL Glucose (74-99) mg/dL POC Glucose (mg/dL) 139 H 164 H (70-110) mg/dL 10/31/23 10/31/23 10/31/23 Range/Units 05:12 10:47 10:47 WBC 15.8 H (3.8-10.6) k/uL RBC 3.43 L (4.30-5.90) m/uL Hgb 10.1 L (13.0-17.5) gm/dL Hct 30.9 L (39.0-53.0) % Neutrophils # (1.3-7.7) k/uL Lymphocytes # (1.0-4.8) k/uL Glucose 133 H (74-99) mg/dL POC Glucose (mg/dL) 120 H (70-110) mg/dL 10/31/23 Range/Units 11:34 WBC (3.8-10.6) k/uL RBC (4.30-5.90) m/uL Hgb (13.0-17.5) gm/dL Hct (39.0-53.0) % Neutrophils # (1.3-7.7) k/uL Lymphocytes # (1.0-4.8) k/uL Glucose (74-99) mg/dL POC Glucose (mg/dL) 158 H (70-110) mg/dL Microbiology - Last 24 Hours (Table) 10/25/23 15:20 Blood Culture - Final Blood 10/25/23 15:31 Blood Culture - Final Blood
--- NOTE | 2023-10-31 13:43 | P.PN ---
Subjective Progress Note Date: 10/31/23 Principal diagnosis: Reason for follow-up is urinary tract infection Patient is a 63-year-old -Irish male with a past medical history significant for CVA TIA with the residual right-sided weakness also with a history of diabetes mellitus hypertension hyperlipidemia sleep apnea. On today's evaluation that is 10/31/2023, patient has been afebrile, patient is breathing comfortably and is currently on room air, patient denies having any significant cough no chest pain shortness of breath, patient denies nausea vomiting or diarrhea and no abdominal pain Patient white count is down to 15.8 creatinine 0.96 blood culture negative repeat UA negative Objective - Vital Signs Vital signs: Vital Signs Temp 98.5 F 10/31/23 08:20 Pulse 102 H 10/31/23 08:20 Resp 17 10/31/23 08:20 BP 113/77 10/31/23 08:20 Pulse Ox 97 10/31/23 08:20 FiO2 Intake & Output 10/30/23 10/31/23 10/31/23 18:59 06:59 18:59 Intake Total 100 720 Output Total 2775 300 550 Balance -2675 420 -550 Weight 81.647 kg Intake: IV 100 Oral 720 Output: Urine 2775 300 550 Other: Voiding Method Indwelling Catheter Indwelling Catheter Indwelling Catheter - Exam GENERAL DESCRIPTION: Middle-age male lying in bed in no distress RESPIRATORY SYSTEM: Unlabored breathing , decreased breath sounds at bases HEART: S1 S2 regular rate and rhythm , ABDOMEN: Soft , no tenderness EXTREMITIES: No edema feet - Labs CBC & Chem 7: 10/31/23 10:47 10/31/23 10:47 Labs: Abnormal Lab Results - Last 24 Hours (Table) 10/30/23 10/30/23 10/30/23 Range/Units 12:49 17:07 17:46 WBC 18.9 H (3.8-10.6) k/uL RBC 3.44 L (4.30-5.90) m/uL Hgb 10.3 L (13.0-17.5) gm/dL Hct 31.0 L (39.0-53.0) % Neutrophils # 17.3 H (1.3-7.7) k/uL Lymphocytes # 0.9 L (1.0-4.8) k/uL Glucose (74-99) mg/dL POC Glucose (mg/dL) 128 H 139 H (70-110) mg/dL 10/30/23 10/31/23 10/31/23 Range/Units 20:04 05:12 10:47 WBC 15.8 H (3.8-10.6) k/uL RBC 3.43 L (4.30-5.90) m/uL Hgb 10.1 L (13.0-17.5) gm/dL Hct 30.9 L (39.0-53.0) % Neutrophils # (1.3-7.7) k/uL Lymphocytes # (1.0-4.8) k/uL Glucose (74-99) mg/dL POC Glucose (mg/dL) 164 H 120 H (70-110) mg/dL 10/31/23 10/31/23 Range/Units 10:47 11:34 WBC (3.8-10.6) k/uL RBC (4.30-5.90) m/uL Hgb (13.0-17.5) gm/dL Hct (39.0-53.0) % Neutrophils # (1.3-7.7) k/uL Lymphocytes # (1.0-4.8) k/uL Glucose 133 H (74-99) mg/dL POC Glucose (mg/dL) 158 H (70-110) mg/dL Microbiology - Last 24 Hours (Table) 10/25/23 15:20 Blood Culture - Final Blood 10/25/23 15:31 Blood Culture - Final Blood Assessment and Plan (1) Urinary tract infection Current Visit: Yes Status: Acute Code(s): N39.0 - URINARY TRACT INFECTION, SITE NOT SPECIFIED SNOMED Code(s): 36060740 (2) Leukocytosis Current Visit: Yes Status: Acute Code(s): D72.829 - ELEVATED WHITE BLOOD CELL COUNT, UNSPECIFIED SNOMED Code(s): 244525687 Plan: 1patient presented to hospital with weakness decreased level of responsiveness, patient did have a urinary symptoms also elevated white count positive UA concerning for symptomatic ureteric infection likely from enteric gram-negative pathogen keeping in mind her recent prolonged stay at [facility] will need to cover for resistant gram-negative 2-patient has shown clinical improvement, repeat UA not significantly positive white count is trending down continue with cefepime while inpatient Dictation was produced using [employer] dictation software. please excuse any grammatical, word or spelling errors. Time with Patient: Less than 30
[2023-10-31] MEDS: FUROSEMIDE 10 MG/ML 2 ML VIAL IV ONE (14:17)
[2023-10-31 16:23] LABS: Glucose,Whole Blood 161 mg/dL (70-110)
--- NOTE | 2023-10-31 16:24 | CA ---
Transthoracic Echo Report Name: Dillan Mosquera Age: 63 Gender: M : 1960 Exam Date: 10/31/2023 14:25 Exam Location: [place] [facility] Ht (in): 72 Wt (lb): 180 Ordering Physician: Giles Núñez MD ([id number]) Attending/Referring Phys: Giorgi Martini MD ([id number]) Plate Mounter Lauren Arora RDCS Procedure CPT: Indications: LVEF. On TOMASA EF was low 20% Cardiac Hx: limited study, stroke Technical Quality: Contrast 1: Definity Total Dose (mL): 2 Contrast 2: Total Dose (mL): MEASUREMENTS (Male / Female) Normal Values 2D ECHO LV Diastolic Volume MOD BP 106.4 cm??? 67 - 155 / 56 - 104 cm??? LV Systolic Volume MOD BP 80.7 cm??? 22 - 58 / 19 - 49 cm??? LV Ejection Fraction MOD BP 24.2 % >= 55 % LV Cardiac Index MOD BP 1322.5 cm???/min???m??? LV Diastolic Volume MOD 4C 126.4 cm??? LV Systolic Volume MOD 4C 93.7 cm??? LV Ejection Fraction MOD 4C 25.8 % LV Cardiac Index MOD 4C 1680.6 cm???/min???m??? LV Diastolic Length 4C 8.6 cm LV Systolic Length 4C 8.7 cm LV Diastolic Volume MOD 2C 88.7 cm??? LV Systolic Volume MOD 2C 71.2 cm??? LV Ejection Fraction MOD 2C 19.8 % LV Cardiac Index MOD 2C 902.1 cm???/min???m??? LV Diastolic Length 2C 8.8 cm LV Systolic Length 2C 9.1 cm DOPPLER TR Peak Velocity 265.3 cm/s TR Peak Gradient 28.1 mmHg Right Ventricular Systolic Press 31.7 mmHg FINDINGS Left Ventricle Left ventricular ejection fraction is estimated at 15-20 %. Only basel mishra cole Right Ventricle Right ventricular systolic pressure within normal limits. Right Atrium Left Atrium Mitral Valve Structurally normal mitral valve. No mitral stenosis, regurgitation or prolapse. Aortic Valve No aortic valve stenosis or regurgitation. Tricuspid Valve Structurally normal tricuspid valve. Mild tricuspid regurgitation. Pulmonic Valve Pulmonic valve not well visualized. Pericardium No pericardial effusion. Aorta CONCLUSIONS LVEF is estimated at 15-20 %. Severely reduced global LV systolic function No obvious thrombus in LV cavity on definity imaging. Swirling of contrast within LV cavity suggestive of slow forward flow No pericardial efffusion Previewed by: Dr Giles Núñez (Electronically Signed) Final Date: 31 October 2023 16:24
[2023-10-31 17:53] LABS: Glucose,Whole Blood 123 mg/dL (70-110)
[2023-10-31] MEDS: MELATONIN 5 MG TABLET PO PRN (20:20)
[2023-10-31] MEDS: APIXABAN 5 MG TAB PO SCH (20:20)
[2023-10-31 20:28] LABS: Glucose,Whole Blood 99 mg/dL (70-110)
[2023-10-31] MEDS ORDERED: MELATONIN 5 MG TABLET PO SCH (21:00)
--- NOTE | 2023-10-31 21:47 | P.PN ---
Subjective Progress Note Date: 10/31/23 Principal diagnosis: Patient seen and evaluated at bedside. Patient doing well, no complaints. Objective - Vital Signs Vital signs: Vital Signs Temp 98.3 F 10/31/23 19:37 Pulse 106 H 10/31/23 19:37 Resp 16 10/31/23 19:37 BP 105/76 10/31/23 19:37 Pulse Ox 98 10/31/23 19:37 FiO2 Intake & Output 10/31/23 10/31/23 11/01/23 06:59 18:59 07:59 Intake Total 720 240 Output Total 300 1450 Balance 420 -1210 Intake: Oral 720 240 Output: Urine 300 1450 Uretheral (Leach) 300 Other: Voiding Method Indwelling Catheter Indwelling Catheter Urinal gen: nad cv: rrr pul: non labored breathing abd: soft, non distended, no guarding or rebound tenderness, ostomy pink/patent/producing ext: b/l edema - Labs CBC & Chem 7: 10/31/23 10:47 10/31/23 10:47 Labs: Abnormal Lab Results - Last 24 Hours (Table) 10/31/23 10/31/23 10/31/23 Range/Units 05:12 10:47 10:47 WBC 15.8 H (3.8-10.6) k/uL RBC 3.43 L (4.30-5.90) m/uL Hgb 10.1 L (13.0-17.5) gm/dL Hct 30.9 L (39.0-53.0) % Glucose 133 H (74-99) mg/dL POC Glucose (mg/dL) 120 H (70-110) mg/dL 10/31/23 10/31/23 10/31/23 Range/Units 11:34 16:20 17:52 WBC (3.8-10.6) k/uL RBC (4.30-5.90) m/uL Hgb (13.0-17.5) gm/dL Hct (39.0-53.0) % Glucose (74-99) mg/dL POC Glucose (mg/dL) 158 H 161 H 123 H (70-110) mg/dL Microbiology - Last 24 Hours (Table) 10/25/23 15:20 Blood Culture - Final Blood 10/25/23 15:31 Blood Culture - Final Blood Assessment and Plan Assessment: 63 yo male s/p subtotal colectomy w/ recent small gi bleed -no significant bleeding -counseled pt on reversal options -trend hgb, if stable ok to discharge Time with Patient: Less than 30
[2023-11-01 06:18] LABS: Glucose,Whole Blood 121 mg/dL (70-110)
[2023-11-01] MEDS: lisinopriL 5 MG TAB PO SCH (08:37)
[2023-11-01] MEDS: ASPIRIN 81 MG PO SCH (08:37)
[2023-11-01 09:04] LABS: African American GFR (CKD) >90 (>60 ml/min/1.73 sqM); Anion Gap 9 mmol/L; Blood Urea Nitrogen 15 mg/dL (9-20); Calcium 9.3 mg/dL (8.4-10.2); Carbon Dioxide 20 mmol/L (22-30); Chloride 109 mmol/L (98-107); Glucose 114 mg/dL (74-99); Magnesium 1.7 mg/dL (1.6-2.3); Non-African American GFR(CKD) >90 (>60 ml/min/1.73 sqM); Potassium 3.9 mmol/L (3.5-5.1); Sodium 138 mmol/L (137-145)
--- NOTE | 2023-11-01 10:08 | P.PN ---
Subjective Patient is seen in follow-up for acute kidney injury. Renal function improved with IV fluids and Leach catheter placement due to retention. Leach catheter removed. Has been voiding on his own. Oral intake just fair. Still has dry heaving at times. Vital signs are stable. General: No acute distress. HEENT: Head exam is unremarkable. LUNGS: No audible rhonchi or wheezes. HEART: Rate and Rhythm are regular. ABDOMEN: Nontender. EXTREMITITES: No edema. Objective - Vital Signs Vital signs: Vital Signs Temp 98.6 F 11/01/23 03:45 Pulse 145 H 11/01/23 05:21 Resp 18 11/01/23 03:45 BP 111/72 11/01/23 05:21 Pulse Ox 100 11/01/23 03:45 FiO2 Intake & Output 10/31/23 11/01/23 11/01/23 17:59 06:59 18:59 Intake Total Output Total Balance Intake: Oral Output: Urine Uretheral (Leach) Other: Voiding Method # Voids 3 - Labs CBC & Chem 7: 10/31/23 10:47 11/01/23 07:44 Labs: Abnormal Lab Results - Last 24 Hours (Table) 10/31/23 10/31/23 10/31/23 Range/Units 10:47 10:47 11:34 WBC 15.8 H (3.8-10.6) k/uL RBC 3.43 L (4.30-5.90) m/uL Hgb 10.1 L (13.0-17.5) gm/dL Hct 30.9 L (39.0-53.0) % Chloride (98-107) mmol/L Carbon Dioxide (22-30) mmol/L Glucose 133 H (74-99) mg/dL POC Glucose (mg/dL) 158 H (70-110) mg/dL 10/31/23 10/31/23 11/01/23 Range/Units 16:20 17:52 06:16 WBC (3.8-10.6) k/uL RBC (4.30-5.90) m/uL Hgb (13.0-17.5) gm/dL Hct (39.0-53.0) % Chloride (98-107) mmol/L Carbon Dioxide (22-30) mmol/L Glucose (74-99) mg/dL POC Glucose (mg/dL) 161 H 123 H 121 H (70-110) mg/dL 11/01/23 Range/Units 07:44 WBC (3.8-10.6) k/uL RBC (4.30-5.90) m/uL Hgb (13.0-17.5) gm/dL Hct (39.0-53.0) % Chloride 109 H (98-107) mmol/L Carbon Dioxide 20 L (22-30) mmol/L Glucose 114 H (74-99) mg/dL POC Glucose (mg/dL) (70-110) mg/dL Assessment and Plan Plan: Assessment: 1. Acute kidney injury secondary to ATN secondary to hypotension and urinary retention. No hydronephrosis noted on kidney ultrasound. 1+ protein and no blood on UA. Repeat UA from October 29, 2023 showed no proteinuria. Acute kidney injury now resolved. 2. Urinary retention status post Leach catheter placement. Leach catheter now removed. On Flomax. 3. Hypokalemia from poor intake and diuresis. Replaced. Better. 4. Hypomagnesemia from poor intake and diuresis. Replaced. Improved. 5. Recent GI bleed status post colectomy end ileostomy placement. Surgery following. 6. Anemia. Iron deficiency noted. Plan: Now off IV fluids. Encouraged oral intake. Receiving IV iron. Dose of lisinopril decreased. Hold for systolic blood pressure less than 110.
[2023-11-01 11:35] LABS: Glucose,Whole Blood 129 mg/dL (70-110)
--- NOTE | 2023-11-01 12:54 | P.PN ---
Subjective Progress Note Date: 11/01/23 Principal diagnosis: Impression presented to the hospital from subacute rehab status post bowel resection secondary to GI bleed, recent acute kidney injury which is improved, compromised cardiac function which also has improved, anemia secondary to massive GI bleed with bowel resection, multiple transfusions currently stable 11/01/2023 Patient is awake alert vital signs are stable, hemoglobin is 10 today, patient is hemodynamically stable, renal function is back to normal Encouraging oral fluids and oral nutritional intake Objective - Vital Signs Vital signs: Vital Signs Temp 99 F 11/01/23 11:50 Pulse 97 11/01/23 11:50 Resp 17 11/01/23 11:50 BP 118/79 11/01/23 11:50 Pulse Ox 97 11/01/23 11:50 FiO2 Intake & Output 10/31/23 11/01/23 11/01/23 17:59 06:59 18:59 Intake Total Output Total Balance Intake: Oral Output: Urine Uretheral (Leach) Other: Voiding Method Urinal # Voids 3 - Exam General: [Patient awake, alert and oriented times 3. Patient in no acute distress.] HEENT: [PERRL. EOMI. No pharyngeal erythema or exudate.] Neck: [No adenopathy.] Cardiac: [Heart regular in rate and rhythm. No S3. No S4. No clicks, rubs. No murmur.] Lungs: [Clear to auscultation bilaterally.] Abdomen: [No mass. No organomegaly. Bowel sounds presnt and normoactive in all 4 quadrants Incision clean and dry Extremes: [No edema no cyanosis no claudication normal pulses] : Normal male genitalia Musculoskeletal: [No joint erythema, edema or tenderness.] Skin: [No rash.] Neurologic: [No lateralizing deficits. CN II - XII grossly intact.] Lymphatic: [No adenopathy.] - Labs CBC & Chem 7: 10/31/23 10:47 11/01/23 07:44 Labs: Abnormal Lab Results - Last 24 Hours (Table) 10/31/23 10/31/23 10/31/23 Range/Units 10:47 16:20 17:52 Chloride (98-107) mmol/L Carbon Dioxide (22-30) mmol/L Glucose 133 H (74-99) mg/dL POC Glucose (mg/dL) 161 H 123 H (70-110) mg/dL 11/01/23 11/01/23 11/01/23 Range/Units 06:16 07:44 11:34 Chloride 109 H (98-107) mmol/L Carbon Dioxide 20 L (22-30) mmol/L Glucose 114 H (74-99) mg/dL POC Glucose (mg/dL) 121 H 129 H (70-110) mg/dL Assessment and Plan (1) LURDES (acute kidney injury) Current Visit: Yes Status: Acute Code(s): N17.9 - ACUTE KIDNEY FAILURE, UNSPECIFIED SNOMED Code(s): 75867734 (2) AMS (altered mental status) Current Visit: Yes Status: Acute Code(s): R41.82 - ALTERED MENTAL STATUS, UNSPECIFIED SNOMED Code(s): 086576584 (3) Abdominal pain Current Visit: Yes Status: Acute Code(s): R10.9 - UNSPECIFIED ABDOMINAL PAIN SNOMED Code(s): 77671106 (4) Dehydration Current Visit: Yes Status: Acute Code(s): E86.0 - DEHYDRATION SNOMED Code(s): 36677629 (5) Urinary tract infection Current Visit: Yes Status: Acute Code(s): N39.0 - URINARY TRACT INFECTION, SITE NOT SPECIFIED SNOMED Code(s): 98053806 (6) Weakness Current Visit: Yes Status: Acute Code(s): R53.1 - WEAKNESS SNOMED Code(s): 67639594 (7) Cerebrovascular accident (CVA) Current Visit: No Status: Acute Code(s): I63.9 - CEREBRAL INFARCTION, UNSPECIFIED SNOMED Code(s): 460543563 Plan: The plan was to send patient to subacute rehab Patient underwent TOMASA subsequently developed sinus tachycardia Which has been controlled with additional metoprolol rates currently in the low 90s Patient improving slowly Will reassess for subacute rehab, anticipate movement to subacute rehab Thursday or Thursday Time with Patient: Greater than 30
--- NOTE | 2023-11-01 13:26 | P.PN ---
Subjective Progress Note Date: 11/01/23 Principal diagnosis: GI bleed Patient stable at this time. No active bleeding. Hemoglobin 10.1 yesterday. Tolerating diet. Objective - Vital Signs Vital signs: Vital Signs Temp 99 F 11/01/23 11:50 Pulse 97 11/01/23 11:50 Resp 17 11/01/23 11:50 BP 118/79 11/01/23 11:50 Pulse Ox 97 11/01/23 11:50 FiO2 Intake & Output 10/31/23 11/01/23 11/01/23 17:59 06:59 18:59 Intake Total Output Total Balance Intake: Oral Output: Urine Uretheral (Leach) Other: Voiding Method Urinal # Voids 3 - Exam Abdomen: Soft, nondistended, nontender, ostomy functioning - Labs CBC & Chem 7: 10/31/23 10:47 11/01/23 07:44 Labs: Abnormal Lab Results - Last 24 Hours (Table) 10/31/23 10/31/23 11/01/23 Range/Units 16:20 17:52 06:16 Chloride (98-107) mmol/L Carbon Dioxide (22-30) mmol/L Glucose (74-99) mg/dL POC Glucose (mg/dL) 161 H 123 H 121 H (70-110) mg/dL 11/01/23 11/01/23 Range/Units 07:44 11:34 Chloride 109 H (98-107) mmol/L Carbon Dioxide 20 L (22-30) mmol/L Glucose 114 H (74-99) mg/dL POC Glucose (mg/dL) 129 H (70-110) mg/dL Assessment and Plan (1) GI bleed Narrative/Plan: Patient being monitored for recurrent bleeding. He had some small rectal bleeding on Thursday. None since. Hemoglobin is stable. Continue diet. Current Visit: Yes Status: Acute Code(s): K92.2 - GASTROINTESTINAL HEMORRHAGE, UNSPECIFIED SNOMED Code(s): 51271632
--- NOTE | 2023-11-01 14:27 | P.PN ---
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 On today's evaluation that is 11/01/2023,the patient denies any fever or any chills, patient is breathing comfortably on room air, the patient denies chest pain shortness of breath and no significant cough, patient denies abdominal pain, no nausea vomiting or diarrhea. Creatinine 0.88 no CBC was done today Objective - Vital Signs Vital signs: Vital Signs Temp 99 F 11/01/23 11:50 Pulse 97 11/01/23 11:50 Resp 17 11/01/23 11:50 BP 118/79 11/01/23 11:50 Pulse Ox 97 11/01/23 11:50 FiO2 Intake & Output 10/31/23 11/01/23 11/01/23 17:59 06:59 18:59 Intake Total Output Total Balance Intake: Oral Output: Urine Uretheral (Leach) Other: Voiding Method Urinal # Voids 3 - Exam GENERAL DESCRIPTION: Middle-age male lying in bed in no distress RESPIRATORY SYSTEM: Unlabored breathing , decreased breath sounds at bases HEART: S1 S2 regular rate and rhythm , ABDOMEN: Soft , no tenderness EXTREMITIES: No edema feet - Labs CBC & Chem 7: 10/31/23 10:47 11/01/23 07:44 Labs: Abnormal Lab Results - Last 24 Hours (Table) 10/31/23 10/31/23 11/01/23 Range/Units 16:20 17:52 06:16 Chloride (98-107) mmol/L Carbon Dioxide (22-30) mmol/L Glucose (74-99) mg/dL POC Glucose (mg/dL) 161 H 123 H 121 H (70-110) mg/dL 11/01/23 11/01/23 Range/Units 07:44 11:34 Chloride 109 H (98-107) mmol/L Carbon Dioxide 20 L (22-30) mmol/L Glucose 114 H (74-99) mg/dL POC Glucose (mg/dL) 129 H (70-110) mg/dL Assessment and Plan (1) Urinary tract infection Current Visit: Yes Status: Acute Code(s): N39.0 - URINARY TRACT INFECTION, SITE NOT SPECIFIED SNOMED Code(s): 46150325 (2) Leukocytosis Current Visit: Yes Status: Acute Code(s): D72.829 - ELEVATED WHITE BLOOD CELL COUNT, UNSPECIFIED SNOMED Code(s): 657806427 (3) Thrush Current Visit: Yes Status: Acute Code(s): B37.0 - CANDIDAL STOMATITIS SNOMED Code(s): 33643518 Plan: 1patient presented to hospital with weakness decreased level of responsiveness, patient did have a urinary symptoms also elevated white count positive UA concerning for symptomatic ureteric infection likely from enteric gram-negative pathogen keeping in mind her recent prolonged stay at [facility] will need to cover for resistant gram-negative 2-patient has shown clinical improvement, repeat UA not significantly positive white count is trending down as of yesterday continue cefepime finishing therapy with Ceftin 3oral thrush we will start nystatin swish and swallow Dictation was produced using [employer] dictation software. please excuse any grammatical, word or spelling errors. Time with Patient: Less than 30
[2023-11-01] MEDS: NYSTATIN 100,000 UNIT/ML SUSP 500,000 UNIT/5 ML CUP PO SCH (15:43)
[2023-11-01 16:24] LABS: Glucose,Whole Blood 152 mg/dL (70-110)
[2023-11-01] MEDS: FUROSEMIDE 20 MG TAB PO SCH (16:39)
--- NOTE | 2023-11-01 18:45 | P.PN ---
Subjective Progress Note Date: 11/01/23 HISTORY OF PRESENT ILLNESS: This is a 63-year-old female with a past medical history significant for hy pertension, hyperlipidemia, diabetes, CVA, and former nicotine dependence. 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 We have been asked to see the patient in consultation for elevated troponins. Patient examined at the bedside in the emergency room. Patient's family is at the bedside. Patient was recently hospitalized at [facility] due to significant GI bleeding requiring more than 10 units of packed RBCs. Patient also underwent colon resection end ileostomy placement. Patient was discharged to [facility]. Patient's family states he was only there for less than 2 days when he began to have shortness of breath, low blood pressure, and confusion. Patient was brought to the hospital for further evaluation. Patient currently denies any chest pain or pressure. He denies any shortness of breath. DIAGNOSTICS: - EKG reveals sinus mechanism with no signs of acute ischemia. - Chest xray negative for acute process. - Laboratory data: WBC 9.9. Hemoglobin 8.3. Platelet count 219. Sodium 140. Potassium 4.2. BUN 62. Creatinine 4.96. Lactic acid 2.3. Troponin 1.250. 0.334. 0.277. - Current home cardiac medications include Procardia XL 60 mg daily, lisinopril 20 mg daily, atorvastatin 80 mg daily, and aspirin 81 mg daily. - Most recent echocardiogram obtained in July 2021 revealed ejection fraction 50 to 55%, mild MR, mild TR, possible PFO versus ASD. - Cardiac catheterization history: March [address] Mir revealing normal coronary arteries and normal left ventricular end-diastolic pressure 10/28/2023 Patient examined this morning at the bedside. Patient's family is present. Patient states he is feeling somewhat better today. He reports he has been able to tolerate some oral intake. He denies chest pain or pressure. He denies shortness of breath. Vital signs are stable. Echocardiogram completed revealing ejection fraction 50 to 55%. 10/29/2023 Patient examined this morning at the bedside. Patient's family is present. Patient denies any chest pain or pressure. He denies any shortness of breath. He states he is starting to feel little bit better. He continues to report right-sided weakness which is chronic. Telemetry reveals sinus mechanism with no evidence of atrial fibrillation. Vital signs are stable. 10/31/2023 Patient has been seen today. For last 2 to 3 days patient has been sinus tachycardic with heart rate is in 110s to 120s. We attribute this to patient's dehydration and sepsis. Yesterday TOMASA was performed which was uneventful. No postop complications. Patient's LVEF appears to be in 20% with severely reduced globally. For this I have started him on metoprolol xl 50 mg daily. I gave him 1 dose of IV Lasix 40 mg yesterday for elevated LA pressures. Today's blood pressure 103/70, heart rate 90s to 100 sinus tachycardia. ECG shows new T wave inversions diffusely. These are consistent with stress cardiomyopathy. Any chest pain chest pressure or shortness of breath. Clinically he does not appear volume overloaded but his TOMASA showed dilated left atrium with signs of elevated LA pressures. 11/01/23 Patient's hemodynamics are better controlled, heart rate is ranging from 90 to 100 bpm, blood pressure is holding up systolic around 100-110 mmHg. PHYSICAL EXAM: VITAL SIGNS: Reviewed. GENERAL: Well-developed in no acute distress. HEENT: Head is normocephalic. Pupils are equal, round. Sclerae anicteric. Mucous membranes of the mouth are moist. Neck supple. No JVD or thyromegaly LUNGS: Respirations even and unlabored. Lungs essentially clear to auscultation bilaterally. HEART: Regular rate and rhythm. S1 and S2 heard. EXTREMITIES: Normal range of motion. No clubbing or cyanosis. Peripheral puls es intact. No lower extremity edema ASSESSMENT: Mild HFrEF Exacerbation Stress cardiomyopathy. Cannot rule out tachycardia induced CMP. Cannot rule out iatrogenic volume overload which was given for LURDES PFO by TOMASA Hypotension and dehydration along with LURDES on admission, now resolved Abnormal troponins, not suggestive of acute coronary syndrome, likely secondary to above AMS, likely due to acute CVA involving left high parietal lobe and also small focal area of ischemia in right centrum semiovale Acute anemia, hemoglobin 12.7 on admission, now 8.3, possible hemodilution Recent colon resection with ostomy creation at [facility] Recent GI bleeding requiring more than 10 units packed RBCs History of seizure disorder Possible PFO vs ASD on prior echo, not visualized on repeat echo History of CVA, 07/2021 with residual right sided weakness, left thalamic hype rtensive hemorrhage and left basal ganglionic ischemic infarction simultaneously PLAN: Continue metoprolol XL 50 mg daily Lisinopril to 5 mg daily due to low blood pressure Give 1 more dose of Lasix 20 mg IV. Start p.o. Lasix 20 mg daily from tomorrow Continue Plavix. Start aspirin 81 mg for CVA. Start Eliquis 5 mg twice daily because patient has low LVEF with apical hypokinesia and swelling of Definity contrast within the LV. He is at high risk of LV thrombus formation. In setting of recent stroke low EF, I would start him on Eliquis 5 mg twice daily temporarily until his EF improves. Patient would need outpatient evaluation for his etiology of cardiomyopathy. Plan is to follow-up outpatient with Dr. Martini, repeat echocardiogram, if no improvement possible heart cath. Patient also has a PFO and has had 2-3 strokes in the past. Will need PFO closure evaluation o/p. Detailed discussion about indication needs and nuance of LifeVest. Patient's family will discuss within themselves and will reach out to us tomorrow if they would like to get it. We also had a discussion about secondary prevention ICD Objective - Vital Signs Vital signs: Vital Signs Temp 99.1 F 11/01/23 15:40 Pulse 103 H 11/01/23 15:40 Resp 18 11/01/23 15:40 BP 108/75 11/01/23 15:40 Pulse Ox 99 11/01/23 15:40 FiO2 Intake & Output 10/31/23 11/01/23 11/01/23 17:59 06:59 18:59 Intake Total Output Total Balance Intake: Oral Output: Urine Uretheral (Leach) Other: Voiding Method Urinal # Voids 3 - Labs CBC & Chem 7: 10/31/23 10:47 11/01/23 07:44 Labs: Abnormal Lab Results - Last 24 Hours (Table) 10/31/23 11/01/23 11/01/23 Range/Units 17:52 06:16 07:44 Chloride 109 H (98-107) mmol/L Carbon Dioxide 20 L (22-30) mmol/L Glucose 114 H (74-99) mg/dL POC Glucose (mg/dL) 123 H 121 H (70-110) mg/dL 11/01/23 11/01/23 Range/Units 11:34 16:22 Chloride (98-107) mmol/L Carbon Dioxide (22-30) mmol/L Glucose (74-99) mg/dL POC Glucose (mg/dL) 129 H 152 H (70-110) mg/dL
[2023-11-01 20:54] LABS: Glucose,Whole Blood 109 mg/dL (70-110)
[2023-11-02 06:27] LABS: Glucose,Whole Blood 105 mg/dL (70-110)
[2023-11-02 10:23] LABS: HCT 28.6 % (39.0-53.0); HGB 9.3 gm/dL (13.0-17.5); Hypochromasia Slight; MCH 29.9 pg (25.0-35.0); MCHC 32.5 g/dL (31.0-37.0); MCV 92.2 fL (80.0-100.0); Platelet Count 320 k/uL (150-450); RDW 14.9 % (11.5-15.5)
[2023-11-02 10:33] LABS: African American GFR (CKD) >90 (>60 ml/min/1.73 sqM); Anion Gap 7 mmol/L; Blood Urea Nitrogen 19 mg/dL (9-20); Calcium 9.1 mg/dL (8.4-10.2); Carbon Dioxide 22 mmol/L (22-30); Chloride 110 mmol/L (98-107); Glucose 130 mg/dL (74-99); Magnesium 1.7 mg/dL (1.6-2.3); Non-African American GFR(CKD) >90 (>60 ml/min/1.73 sqM); Potassium 3.9 mmol/L (3.5-5.1); Sodium 139 mmol/L (137-145)
[2023-11-02 11:34] LABS: Glucose,Whole Blood 203 mg/dL (70-110)
--- NOTE | 2023-11-02 11:38 | P.PN ---
Subjective Patient is seen in follow-up for acute kidney injury. Renal function improved with IV fluids and Leach catheter placement due to retention. Leach catheter now removed. Has been voiding on his own. Oral intake just fair. No further dry heaving. Vital signs are stable. General: No acute distress. HEENT: Head exam is unremarkable. LUNGS: No audible rhonchi or wheezes. HEART: Rate and Rhythm are regular. ABDOMEN: Nontender. EXTREMITITES: No edema. Objective - Vital Signs Vital signs: Vital Signs Temp 98.5 F 11/02/23 08:25 Pulse 96 11/02/23 08:25 Resp 16 11/02/23 08:25 BP 123/83 11/02/23 08:25 Pulse Ox 100 11/02/23 08:25 FiO2 21 11/02/23 07:36 Intake & Output 11/01/23 11/02/23 11/02/23 18:59 06:59 18:59 Output Total 575 Balance -575 Output: Urine 325 Stool 250 Other: Voiding Method Urinal Urinal Urinal # Voids 3 - Labs CBC & Chem 7: 11/02/23 09:51 11/02/23 09:51 Labs: Abnormal Lab Results - Last 24 Hours (Table) 11/01/23 11/02/23 11/02/23 Range/Units 16:22 09:51 09:51 WBC 12.0 H (3.8-10.6) k/uL RBC 3.10 L (4.30-5.90) m/uL Hgb 9.3 L (13.0-17.5) gm/dL Hct 28.6 L (39.0-53.0) % Chloride 110 H (98-107) mmol/L Glucose 130 H (74-99) mg/dL POC Glucose (mg/dL) 152 H (70-110) mg/dL 11/02/23 Range/Units 11:31 WBC (3.8-10.6) k/uL RBC (4.30-5.90) m/uL Hgb (13.0-17.5) gm/dL Hct (39.0-53.0) % Chloride (98-107) mmol/L Glucose (74-99) mg/dL POC Glucose (mg/dL) 203 H (70-110) mg/dL Assessment and Plan Plan: Assessment: 1. Acute kidney injury secondary to ATN secondary to hypotension and urinary retention. No hydronephrosis noted on kidney ultrasound. 1+ protein and no blood on UA. Repeat UA from October 29, 2023 showed no proteinuria. Acute kidney injury now resolved. 2. Urinary retention status post Leach catheter placement. Leach catheter now removed. On Flomax. 3. Hypokalemia from poor intake and diuresis. Replaced. Better. 4. Hypomagnesemia from poor intake and diuresis. Replaced. Improved. 5. Recent GI bleed status post colectomy end ileostomy placement. Surgery following. 6. Anemia. Iron deficiency noted. 7. Chronic systolic CHF with ejection fraction of 15 to 20%. Plan: Maintain low-dose Lasix. Encouraged oral intake. Add oral magnesium oxide. Receiving IV iron. Dose of lisinopril decreased 11/01/23. Hold for systolic blood pressure less than 110.
--- NOTE | 2023-11-02 12:15 | P.PN ---
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 On today's evaluation that is 11/02/2023,the patient remains to be afebrile, patient is on room air not requiring supplemental oxygen and denies any shortness of breath no chest pain or cough.Patient denies having any nausea or vomiting, no abdominal pain and no diarrhea has been reported. Patient white count is down to 12,000, creatinine 0.80 blood culture negative Objective - Vital Signs Vital signs: Vital Signs Temp 98.5 F 11/02/23 08:25 Pulse 105 H 11/02/23 11:33 Resp 16 11/02/23 11:33 BP 112/80 11/02/23 11:33 Pulse Ox 100 11/02/23 11:33 FiO2 21 11/02/23 07:36 Intake & Output 11/01/23 11/02/23 11/02/23 18:59 06:59 18:59 Output Total 575 125 Balance -575 -125 Output: Urine 325 Stool 250 125 Other: Voiding Method Urinal Urinal Urinal # Voids 3 - Exam GENERAL DESCRIPTION: Middle-age male lying in bed in no distress RESPIRATORY SYSTEM: Unlabored breathing , decreased breath sounds at bases HEART: S1 S2 regular rate and rhythm , ABDOMEN: Soft , no tenderness EXTREMITIES: No edema feet - Labs CBC & Chem 7: 11/02/23 09:51 11/02/23 09:51 Labs: Abnormal Lab Results - Last 24 Hours (Table) 11/01/23 11/02/23 11/02/23 Range/Units 16:22 09:51 09:51 WBC 12.0 H (3.8-10.6) k/uL RBC 3.10 L (4.30-5.90) m/uL Hgb 9.3 L (13.0-17.5) gm/dL Hct 28.6 L (39.0-53.0) % Chloride 110 H (98-107) mmol/L Glucose 130 H (74-99) mg/dL POC Glucose (mg/dL) 152 H (70-110) mg/dL 03/11/24 Range/Units 11:31 WBC (3.8-10.6) k/uL RBC (4.30-5.90) m/uL Hgb (13.0-17.5) gm/dL Hct (39.0-53.0) % Chloride (98-107) mmol/L Glucose (74-99) mg/dL POC Glucose (mg/dL) 203 H (70-110) mg/dL Assessment and Plan (1) Urinary tract infection Current Visit: Yes Status: Acute Code(s): N39.0 - URINARY TRACT INFECTION, SITE NOT SPECIFIED SNOMED Code(s): 67796215 (2) Leukocytosis Current Visit: Yes Status: Acute Code(s): D72.829 - ELEVATED WHITE BLOOD CELL COUNT, UNSPECIFIED SNOMED Code(s): 170546330 (3) Thrush Current Visit: Yes Status: Acute Code(s): B37.0 - CANDIDAL STOMATITIS SNOMED Code(s): 74674206 Plan: 1patient presented to hospital with weakness decreased level of responsiveness, patient did have a urinary symptoms also elevated white count positive UA concerning for symptomatic ureteric infection likely from enteric gram-negative pathogen keeping in mind her recent prolonged stay at [facility] will need to cover for resistant gram-negative 2-patient has shown clinical improvement, repeat UA not significantly positive and the patient has received adequate cefepime during this hospital stay and can be discontinued on discharge 3oral thrush more like responsible for the elevated white count which is trending down, patient to continue with nystatin swish and swallow x 7 days on discharge Dictation was produced using [employer] dictation software. please excuse any grammatical, word or spelling errors. Time with Patient: Less than 30
[2023-11-02] MEDS: MAGNESIUM OXIDE 400 MG TAB PO SCH (12:17)
--- NOTE | 2023-11-02 13:50 | P.PN ---
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 at bedside reports she was told by Kevin that patient had a seizure. On admission, Leach catheter was placed with immediate return of 500 mL of urine followed by another 600ml. Hypotensive on admission with lowest blood pressure recorded as 65/50, heart rate 85, respiratory rate 20, maintaining O2 sats of 100% on 4 L nasal cannula, temper ature pending. Received multiple fluid boluses and currently receiving IV fluid hydration of saline 130 MLS per hour. Serum creatinine was 5.5, currently 4.96, baseline creatinine 1. Bicarb 17, bicarb drip ordered. Chest x-ray reported no acute cardiopulmonary disease/process. Brain CT reported no acute intracranial abnormality, 2 cm area of encephalomalacia within the left occipital parietal lobe likely related to remote infarct. Denies chest pain, palpitations .troponin elevated 1.250, repeat level ordered. 10/27/2023 troponins 1.250, 0.334, 0.277 , evaluated by cardiology, echo ordered. Evaluated by neurology, EEG pending. cefepime initiated per infectious disease. UA reporting moderate triple phosphate crystals, greater than 10 urine WBCs, moderate leukocytes, negative nitrates, moderate blood, 1+ close, 1+ protein. Sensorium significantly improved.Maintained on IV bicarb, bicarb remains at 17 and Leach catheter secondary to urinary retention. Creatinine improving, decreased to 2.85. hemoglobin 8, platelets 200. Reticulocyte count within normal limits, 1. No bleeding. denies abdominal pain. Blood pressures soft. 10/28/2023 at bedside reports patient's mental status/dysarthria is at about 47 % of baseline. EEG reported abnormal due to background slowing of moderate degree suggestive of generalized cerebral dysfunction, can be seen with toxic metabolic encephalopathy or related to diffuse structural brain abnormality, no epileptiform activity seen. Just returned back from brain MRI. Echocardiogram reported normal LV function.hemoglobin 8.3 with no bleeding noted. Iron 21. 24- hour I AND O reporting urine output of 2 L. BMP pending. 10/29/2023 Mentation improved .telemetry sinus rhythm, denies chest pain, palpitations or shortness of breath. Significant improvement in renal function, BUN 14, creatinine 0.9. Antihypertensives remain on hold, blood pressures running higher , systolic blood pressure in the 150s, nephrology okayed resuming lisinopril .Bicarb 30, Bicarb Drip Discontinued. continue O2 sats in the high 90s on room air. Continues on cefepime as per ID, Afebrile, normal WBC. Denies nausea, vomiting or diarrhea. Denies abdominal pain or tenderness. hemoglobin 8.2, platelets 190. Potassium 3.9, potassium supplementation ordered, magnesium level added on. Blood sugars controlled. MRI reported subcortical edema noted within the left high parietal lobe compatible with acute CVA, also focal area of increased signal within the right centrum semiovale. Plavix started as per neurology related to patient failed aspirin regime. Potassium 3.1, supplements ordered. Magnesium level ordered. Hemoglobin 8.2, platelets 190. Denies chest pain, palpitations or shortness of breath. 11/01/2023 Patient is awake alert vital signs are stable, hemoglobin is 10 today, patient is hemodynamically stable, renal function is back to normal Encouraging oral fluids and oral nutritional intake 10/30/2023 no bleeding reported, hemoglobin 9.3, platelets 320. Renal function improved, creatinine 0.8, with IV fluids and Leach catheter for urinary retention .continues on oral Lasix, spontaneously voiding. magnesium oxide initiated, magnesium 1.7. Tachycardic yesterday, heart rate currently in the mid 90s. TOMASA reported severely reduced global LV systolic function, severely reduced LA dilatation, severely elevated LA pressures, PFO with [id number] shunting, no evidence of intracardiac thrombus, no evidence of vegetation or infective endocarditis, ascending aorta measured 4.0 cm. Afebrile, WBC 12, blood cultures reporting no growth. Denies nausea, vomiting or diarrhea. Denies abdominal pain. denies chest pain, palpitations or shortness of breath. Maintaining O2 sats in the 90s on room air. Objective - Vital Signs Vital signs: Vital Signs Temp 98.5 F 11/02/23 08:25 Pulse 96 11/02/23 08:25 Resp 16 11/02/23 08:25 BP 123/83 11/02/23 08:25 Pulse Ox 100 11/02/23 08:25 FiO2 21 11/02/23 07:36 Intake & Output 11/01/23 11/02/23 11/02/23 18:59 06:59 18:59 Output Total 575 Balance -575 Output: Urine 325 Stool 250 Other: Voiding Method Urinal Urinal Urinal # Voids 3 - Exam PHYSICAL EXAM: VITAL SIGNS: [As above] GENERAL: Alert and oriented x 3, sitting up at side of bed, conversing appropriately HEENT: Normocephalic conjunctivae normal. eyes normal. NECK: Supple, no JVD. CARDIOVASCULAR: S1, S2 regular.No murmur RESPIRATION: Unlabored, equal air entry, breath sounds diminished in the bases. ABDOMEN: Soft, nontender . No guarding, ileostomy. LEGS: No edema. no swelling NERVOUS SYSTEM: Limited exam -cranial nerves II through XII grossly intact.URIAS. Chronic residual right-sided weakness. Skin: Warm and dry, no rash noted. - Labs CBC & Chem 7: 11/02/23 09:51 11/02/23 09:51 Labs: Abnormal Lab Results - Last 24 Hours (Table) 11/01/23 11/02/23 11/02/23 Range/Units 16:22 09:51 09:51 WBC 12.0 H (3.8-10.6) k/uL RBC 3.10 L (4.30-5.90) m/uL Hgb 9.3 L (13.0-17.5) gm/dL Hct 28.6 L (39.0-53.0) % Chloride 110 H (98-107) mmol/L Glucose 130 H (74-99) mg/dL POC Glucose (mg/dL) 152 H (70-110) mg/dL 11/02/23 Range/Units 11:31 WBC (3.8-10.6) k/uL RBC (4.30-5.90) m/uL Hgb (13.0-17.5) gm/dL Hct (39.0-53.0) % Chloride (98-107) mmol/L Glucose (74-99) mg/dL POC Glucose (mg/dL) 203 H (70-110) mg/dL Assessment and Plan Assessment: Change in mental status, metabolic encephalopathy, multifactorial secondary to acute bilateral CVAs, renal failure in a patient with history of 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 Brain MRI reported acute bilateral CVAs- high left parietal lobe and small focal area of ischemia in the right centrum semiovale. Ruling out cardioembolic source.Possible PFO vs ASD on prior echo, not visualized on repeat echo. TOMASA reported PFO, closure evaluation outpatient. Stress cardiomyopathy, possibly induced by tachycardia, 10/31/2023 new T wave inversions consistent with stress cardiomyopathy as per cardiology. Further evaluation outpatient with cardiology. Ascending aorta 4.0 cm Hypotension, improved with IV fluid hydration. Dehydration secondary to the above Acute renal failure secondary to ATN related to hypotension, urinary retention, medications. Resolved. Seizure activity reported by , recently while inpatient at [facility], also possibly at [facility], suspect hemodynamic related as well as related to acute renal failure. Metabolic acidosis secondary to #1 Possible acute UTI, original UA not available, UA with reflex to culture reordered. Elevated troponins, not suggestive of acute coronary syndrome as per cardiology. Lactic acidosis resolved with IV fluid hydration Acute anemia, in a patient with recent history of recent colectomy with ileostomy, massive GI bleed with multiple units of packed RBC transfusions at [facility], possibly hemodilutional, iron deficient. Close monitoring. Urinary retention, suspect Leach catheter Diabetes mellitus, hemoglobin A1c 5.7 Hypertension Hyperlipidemia Sleep apnea Former nicotine dependence Plan: Continue on current medication regime, monitoring and symptomatic treatment. IV fluids as per nephrology. Decreased NIYAH inhibitor dose with parameters to hold if systolic blood pressure less than 110. Antibiotics as per infectious disease .Anticoagulation Further Adjusted to Eliquis secondary to Low EF as per cardiology . Close monitoring of hemoglobin with repeat labs ordered for a.m. high risk for bleeding as previously discussed with both patient and significant other at bedside. PPI twice daily. no antiepileptic medication as per neurology as seizure was likely provoked to hemodynamic and metabolic dysfunction as well as EEG did not reveal any epileptiform activity .PT/OT. Discharge planning in progress for tomorrow to [facility] subacute rehab pending LifeVest, final DC recommendations and clearance from cardiology. Prognosis guarded given multiple complex medical issues. The impression and plan of care has been dictated as directed. : I performed a history and examination of this patient, discussed the same with the dictator. I agree with the dictator's note ,documented as a scribe. Any additional findings or plans will be noted.
--- NOTE | 2023-11-02 13:58 | P.PN ---
Subjective Progress Note Date: 11/02/23 HISTORY OF PRESENT ILLNESS: This is a 63-year-old female with a past medical history significant for hy pertension, hyperlipidemia, diabetes, CVA, and former nicotine dependence. Patient does not follow with a radio communication coordinator. We have been asked to see the patient in consultation for elevated troponins. Patient examined at the bedside in the emergency room. Patient's family is at the bedside. Patient was recently hospitalized at [facility] due to significant GI bleeding requiring more than 10 units of packed RBCs. Patient also underwent colon resection end ileostomy placement. Patient was discharged to [facility]. Patient's family states he was only there for less than 2 days when he began to have shortness of breath, low blood pressure, and confusion. Patient was brought to the hospital for further evaluation. Patient currently denies any chest pain or pressure. He denies any shortness of breath. DIAGNOSTICS: - EKG reveals sinus mechanism with no signs of acute ischemia. - Chest xray negative for acute process. - Laboratory data: WBC 9.9. Hemoglobin 8.3. Platelet count 219. Sodium 140. Potassium 4.2. BUN 62. Creatinine 4.96. Lactic acid 2.3. Troponin 1.250. 0.334. 0.277. - Current home cardiac medications include Procardia XL 60 mg daily, lisinopril 20 mg daily, atorvastatin 80 mg daily, and aspirin 81 mg daily. - Most recent echocardiogram obtained in July 2021 revealed ejection fraction 50 to 55%, mild MR, mild TR, possible PFO versus ASD. - Cardiac catheterization history: March [address] Mir revealing normal coronary arteries and normal left ventricular end-diastolic pressure 10/28/2023 Patient examined this morning at the bedside. Patient's family is present. Patient states he is feeling somewhat better today. He reports he has been able to tolerate some oral intake. He denies chest pain or pressure. He denies shortness of breath. Vital signs are stable. Echocardiogram completed revealing ejection fraction 50 to 55%. 10/29/2023 Patient examined this morning at the bedside. Patient's family is present. Patient denies any chest pain or pressure. He denies any shortness of breath. He states he is starting to feel little bit better. He continues to report right-sided weakness which is chronic. Telemetry reveals sinus mechanism with no evidence of atrial fibrillation. Vital signs are stable. 10/31/2023 Patient has been seen today. For last 2 to 3 days patient has been sinus tachycardic with heart rate is in 110s to 120s. We attribute this to patient's dehydration and sepsis. Yesterday TOMASA was performed which was uneventful. No postop complications. Patient's LVEF appears to be in 20% with severely reduced globally. For this I have started him on metoprolol xl 50 mg daily. I gave him 1 dose of IV Lasix 40 mg yesterday for elevated LA pressures. Today's blood pressure 103/70, heart rate 90s to 100 sinus tachycardia. ECG shows new T wave inversions diffusely. These are consistent with stress cardiomyopathy. Any chest pain chest pressure or shortness of breath. Clinically he does not appear volume overloaded but his TOMASA showed dilated left atrium with signs of elevated LA pressures. 11/01/23 Patient's hemodynamics are better controlled, heart rate is ranging from 90 to 100 bpm, blood pressure is holding up systolic around 100-110 mmHg. 11/01 Family and patient is in agreement to pursue LifeVest. Case management is following for this. Patient denies having any chest pain. Discharge plan is to [facility]. Blood pressure 112/80, heart rate 105, pulse ox 100% on room air. Repeat blood work reveals WBC 12, hemoglobin 9.3, BUN 19 creatinine 0.8, potassium 3.9. PHYSICAL EXAM: VITAL SIGNS: Reviewed. GENERAL: Well-developed in no acute distress. HEENT: Head is normocephalic. Pupils are equal, round. Sclerae anicteric. Mucous membranes of the mouth are moist. Neck supple. No JVD or thyromegaly LUNGS: Respirations even and unlabored. Lungs essentially clear to auscultation bilaterally. HEART: Regular rate and rhythm. S1 and S2 heard. EXTREMITIES: Normal range of motion. No clubbing or cyanosis. Peripheral pulses intact. No lower extremity edema ASSESSMENT: Mild HFrEF Exacerbation Stress cardiomyopathy. Cannot rule out tachycardia induced CMP. Cannot rule out iatrogenic volume overload which was given for LURDES PFO by TOMASA Hypotension and dehydration along with LURDES on admission, now resolved Abnormal troponins, not suggestive of acute coronary syndrome, likely secondary to above AMS, likely due to acute CVA involving left high parietal lobe and also small focal area of ischemia in right centrum semiovale Acute anemia, hemoglobin 12.7 on admission, now 8.3, possible hemodilution Recent colon resection with ostomy creation at [facility] Recent GI bleeding requiring more than 10 units packed RBCs History of seizure disorder Possible PFO vs ASD on prior echo, not visualized on repeat echo History of CVA, 07/2021 with residual right sided weakness, left thalamic hypertensive hemorrhage and left basal ganglionic ischemic infarction simultan eously PLAN: Continue metoprolol XL 50 mg daily Lisinopril to 5 mg daily Continue Lasix 20 mg daily Continue Plavix. Start aspirin 81 mg for CVA. Start Eliquis 5 mg twice daily because patient has low LVEF with apical hypokinesia and swelling of Definity contrast within the LV. He is at high risk of LV thrombus formation. In setting of recent stroke low EF, I would start him on Eliquis 5 mg twice daily temporarily until his EF improves. Start patient on Farxiga 10 mg daily Patient would need outpatient evaluation for his etiology of cardiomyopathy. Plan is to follow-up outpatient with Dr. Martini, repeat echocardiogram, if no improvement possible heart cath. Patient also has a PFO and has had 2-3 strokes in the past. Will need PFO closure evaluation o/p. LifeVest ordered Nurse practitioner note has been reviewed, I agree with documented findings and plan of care. Patient was seen and examined. Objective - Vital Signs Vital signs: Vital Signs Temp 98.5 F 11/02/23 08:25 Pulse 96 11/02/23 08:25 Resp 16 11/02/23 08:25 BP 123/83 11/02/23 08:25 Pulse Ox 100 11/02/23 08:25 FiO2 21 11/02/23 07:36 Intake & Output 11/01/23 11/02/23 11/02/23 18:59 06:59 18:59 Output Total 575 Balance -575 Output: Urine 325 Stool 250 Other: Voiding Method Urinal Urinal # Voids 3 - Labs CBC & Chem 7: 11/02/23 09:51 11/02/23 09:51 Labs: Abnormal Lab Results - Last 24 Hours (Table) 11/01/23 11/01/23 Range/Units 11:34 16:22 POC Glucose (mg/dL) 129 H 152 H (70-110) mg/dL
--- NOTE | 2023-11-02 13:58 | P.PN ---
Subjective Progress Note Date: 11/02/23 CHIEF COMPLAINT: Hypotension and unresponsiveness HISTORY OF PRESENT ILLNESS: Patient brought in from [facility] due to hypotension, unresponsiveness and concerns for possible seizure. Surgical service following in regards to his anemia. Patient has had no bloody output from his ileostomy. Patient apparently had some blood passage from the rectum Thursday. This has resolved. Afebrile. Mildly tachycardic. WBC down from 15-12 hemoglobin 10.1 down to 9.3 PHYSICAL EXAM: VITAL SIGNS: Reviewed GENERAL: Well-developed in no acute distress. HEENT: No sclera icterus. Extraocular movements grossly intact. Moist buccal mucosa. Head is atraumatic, normocephalic. Hears conversational speech. No nasal drainage. NECK: Supple without lymphadenopathy. CHEST: Non-labored respirations and equal bilateral excursions. CARDIOVASCULAR: Palpable 2+ radial pulses. ABDOMEN: Soft. Nondistended. Nontender ileostomy with light pink stoma. Stool is thick and greenish in color MUSCULOSKELETAL: No clubbing or cyanosis. NEUROLOGIC: No focal or lateralizing signs. Cranial nerves II through XII gr ossly intact. PSYCH: Appropriate affect. Alert and oriented to person, place and time. SKIN: Well perfused. Good skin turgor. ASSESSMENT: 1. Anemia. No signs of active bleeding at this time 2. Recent GI bleed, likely diverticular bleed with colectomy and ileostomy placement about 3 weeks ago at [facility] 3. Hypotension improved with IV fluids 4. Acute kidney injury resolved 5. Altered mental status 6. Elevated troponin, followed by cardiology, acute coronary syndrome ruled out by cardiac 7. Previous hospitalization contributing to patient's iron deficiency anemia PLAN: -No plans for endoscopy -Continue to monitor hemoglobin -Continue to monitor for any signs or symptoms of bleeding -Patient receiving IV iron -Continue Ensure protein drinks -Repeat CBC in a.m. [facility] note has been reviewed by physician. Signing provider agrees with the documented findings, assessment, and plan of care. Objective - Vital Signs Vital signs: Vital Signs Temp 98.5 F 11/02/23 08:25 Pulse 105 H 11/02/23 13:24 Resp 16 11/02/23 11:33 BP 112/80 11/02/23 11:33 Pulse Ox 100 11/02/23 11:33 FiO2 21 11/02/23 07:36 Intake & Output 11/01/23 11/02/23 11/02/23 18:59 06:59 18:59 Intake Total 120 Output Total 575 125 Balance -575 -5 Intake: Oral 120 Output: Urine 325 Stool 250 125 Other: Voiding Method Urinal Urinal Urinal # Voids 3 - Labs CBC & Chem 7: 11/02/23 09:51 11/02/23 09:51 Labs: Abnormal Lab Results - Last 24 Hours (Table) 11/01/23 11/02/23 11/02/23 Range/Units 16:22 09:51 09:51 WBC 12.0 H (3.8-10.6) k/uL RBC 3.10 L (4.30-5.90) m/uL Hgb 9.3 L (13.0-17.5) gm/dL Hct 28.6 L (39.0-53.0) % Chloride 110 H (98-107) mmol/L Glucose 130 H (74-99) mg/dL POC Glucose (mg/dL) 152 H (70-110) mg/dL 11/02/23 Range/Units 11:31 WBC (3.8-10.6) k/uL RBC (4.30-5.90) m/uL Hgb (13.0-17.5) gm/dL Hct (39.0-53.0) % Chloride (98-107) mmol/L Glucose (74-99) mg/dL POC Glucose (mg/dL) 203 H (70-110) mg/dL
[2023-11-02] MEDS: DAPAGLIFLOZIN PROPANEDIOL 10 MG TABLET PO SCH (16:33)
[2023-11-02 16:49] LABS: Glucose,Whole Blood 178 mg/dL (70-110)
[2023-11-02] MEDS: PANTOPRAZOLE 40 MG/10 ML VIAL IVP SCH (19:52)
[2023-11-02 21:04] LABS: Glucose,Whole Blood 131 mg/dL (70-110)
[2023-11-03 06:28] LABS: Glucose,Whole Blood 130 mg/dL (70-110)
[2023-11-03 08:10] VITALS: RESP 16
[2023-11-03 08:13] LABS: Basophils # (A) 0.1 k/uL (0-0.2); Basophils % (A) 0 %; Eosinophils # (A) 0.2 k/uL (0-0.7); Eosinophils % (A) 2 %; HCT 27.1 % (39.0-53.0); HGB 8.6 gm/dL (13.0-17.5); Hypochromasia Moderate; Lymphocytes # (A) 1.4 k/uL (1.0-4.8); Lymphocytes % (A) 13 %; MCH 29.4 pg (25.0-35.0); MCHC 31.6 g/dL (31.0-37.0); MCV 92.9 fL (80.0-100.0); Mean Platelet Volume 8.3; Monocytes # (A) 0.5 k/uL (0-1.0); Monocytes % (A) 4 %; Neutrophils # (A) 8.4 k/uL (1.3-7.7); Neutrophils % (A) 79 %; Platelet Count 323 k/uL (150-450); RBC 2.92 m/uL (4.30-5.90); RDW 14.9 % (11.5-15.5); WBC 10.6 k/uL (3.8-10.6)
[2023-11-03 08:35] LABS: African American GFR (CKD) >90 (>60 ml/min/1.73 sqM); Anion Gap 7 mmol/L; Blood Urea Nitrogen 21 mg/dL (9-20); Calcium 9.2 mg/dL (8.4-10.2); Carbon Dioxide 22 mmol/L (22-30); Chloride 111 mmol/L (98-107); Glucose 106 mg/dL (74-99); Magnesium 1.8 mg/dL (1.6-2.3); Non-African American GFR(CKD) >90 (>60 ml/min/1.73 sqM); Potassium 4.4 mmol/L (3.5-5.1); Sodium 140 mmol/L (137-145)
--- NOTE | 2023-11-03 09:38 | P.PN ---
Subjective Progress Note Date: 11/03/23 HISTORY OF PRESENT ILLNESS: This is a 63-year-old female with a past medical history significant for hy pertension, hyperlipidemia, diabetes, CVA, and former nicotine dependence. 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 We have been asked to see the patient in consultation for elevated troponins. Patient examined at the bedside in the emergency room. Patient's family is at the bedside. Patient was recently hospitalized at [facility] due to significant GI bleeding requiring more than 10 units of packed RBCs. Patient also underwent colon resection end ileostomy placement. Patient was discharged to [facility]. Patient's family states he was only there for less than 2 days when he began to have shortness of breath, low blood pressure, and confusion. Patient was brought to the hospital for further evaluation. Patient currently denies any chest pain or pressure. He denies any shortness of breath. DIAGNOSTICS: - EKG reveals sinus mechanism with no signs of acute ischemia. - Chest xray negative for acute process. - Laboratory data: WBC 9.9. Hemoglobin 8.3. Platelet count 219. Sodium 140. Potassium 4.2. BUN 62. Creatinine 4.96. Lactic acid 2.3. Troponin 1.250. 0.334. 0.277. - Current home cardiac medications include Procardia XL 60 mg daily, lisinopril 20 mg daily, atorvastatin 80 mg daily, and aspirin 81 mg daily. - Most recent echocardiogram obtained in July 2021 revealed ejection fraction 50 to 55%, mild MR, mild TR, possible PFO versus ASD. - Cardiac catheterization history: March [address] Mir revealing normal coronary arteries and normal left ventricular end-diastolic pressure 10/28/2023 Patient examined this morning at the bedside. Patient's family is present. Patient states he is feeling somewhat better today. He reports he has been able to tolerate some oral intake. He denies chest pain or pressure. He denies shortness of breath. Vital signs are stable. Echocardiogram completed revealing ejection fraction 50 to 55%. 10/29/2023 Patient examined this morning at the bedside. Patient's family is present. Patient denies any chest pain or pressure. He denies any shortness of breath. He states he is starting to feel little bit better. He continues to report right-sided weakness which is chronic. Telemetry reveals sinus mechanism with no evidence of atrial fibrillation. Vital signs are stable. 10/31/2023 Patient has been seen today. For last 2 to 3 days patient has been sinus tachycardic with heart rate is in 110s to 120s. We attribute this to patient's dehydration and sepsis. Yesterday TOMASA was performed which was uneventful. No postop complications. Patient's LVEF appears to be in 20% with severely reduced globally. For this I have started him on metoprolol xl 50 mg daily. I gave him 1 dose of IV Lasix 40 mg yesterday for elevated LA pressures. Today's blood pressure 103/70, heart rate 90s to 100 sinus tachycardia. ECG shows new T wave inversions diffusely. These are consistent with stress cardiomyopathy. Any chest pain chest pressure or shortness of breath. Clinically he does not appear volume overloaded but his TOMASA showed dilated left atrium with signs of elevated LA pressures. 11/01/23 Patient's hemodynamics are better controlled, heart rate is ranging from 90 to 100 bpm, blood pressure is holding up systolic around 100-110 mmHg. 11/01 Family and patient is in agreement to pursue LifeVest. Case management is following for this. Patient denies having any chest pain. Discharge plan is to [facility]. Blood pressure 112/80, heart rate 105, pulse ox 100% on room air. Repeat blood work reveals WBC 12, hemoglobin 9.3, BUN 19 creatinine 0.8, potassium 3.9. 11/02 Patient feels that he is getting stronger and has more energy today. LifeVest is being applied at this time. Blood pressure 128/86, heart rate 94, pulse ox 100% on room air. Hemoglobin 8.6, potassium 4.4, BUN 21 creatinine 0.79. PHYSICAL EXAM: VITAL SIGNS: Reviewed. GENERAL: Well-developed in no acute distress. HEENT: Head is normocephalic. Pupils are equal, round. Sclerae anicteric. Mucous membranes of the mouth are moist. Neck supple. No JVD or thyromegaly LUNGS: Respirations even and unlabored. Lungs essentially clear to auscultation bilaterally. HEART: Regular rate and rhythm. S1 and S2 heard. EXTREMITIES: Normal range of motion. No clubbing or cyanosis. Peripheral pulses intact. No lower extremity edema ASSESSMENT: Mild HFrEF Exacerbation Stress cardiomyopathy. Cannot rule out tachycardia induced CMP. Cannot rule out iatrogenic volume overload which was given for LURDES PFO by TOMASA Hypotension and dehydration along with LURDES on admission, now resolved Abnormal troponins, not suggestive of acute coronary syndrome, likely secondary to above AMS, likely due to acute CVA involving left high parietal lobe and also small focal area of ischemia in right centrum semiovale Acute anemia, hemoglobin 12.7 on admission, now 8.3, possible hemodilution Recent colon resection with ostomy creation at [facility] Recent GI bleeding requiring more than 10 units packed RBCs History of seizure disorder Possible PFO vs ASD on prior echo, not visualized on repeat echo History of CVA, 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 Plan is to follow-up outpatient with Dr. Martini, repeat echocardiogram, if no improvement possible heart cath. Patient also has a PFO and has had 2-3 strokes in the past. Will need PFO closure evaluation o/p. LifeVest for home Patient is cleared for discharge from cardiology. Nurse practitioner note has been reviewed, I agree with documented findings and plan of care. Patient was seen and examined. Objective - Vital Signs Vital signs: Vital Signs Temp 98.3 F 11/03/23 08:06 Pulse 94 11/03/23 08:06 Resp 16 11/03/23 08:06 BP 128/86 11/03/23 08:06 Pulse Ox 100 11/03/23 08:06 FiO2 21 11/02/23 07:36 Intake & Output 11/02/23 11/03/23 11/03/23 18:59 06:59 18:59 Intake Total 660 200 240 Output Total 125 1000 Balance 535 -800 240 Intake: Oral 660 200 240 Output: Urine 700 Stool 125 300 Other: Voiding Method Urinal Urinal - Labs CBC & Chem 7: 11/03/23 06:57 11/03/23 06:57 Labs: Abnormal Lab Results - Last 24 Hours (Table) 11/02/23 11/02/23 11/02/23 Range/Units 09:51 09:51 11:31 WBC 12.0 H (3.8-10.6) k/uL RBC 3.10 L (4.30-5.90) m/uL Hgb 9.3 L (13.0-17.5) gm/dL Hct 28.6 L (39.0-53.0) % Neutrophils # (1.3-7.7) k/uL Chloride 110 H (98-107) mmol/L BUN (9-20) mg/dL Glucose 130 H (74-99) mg/dL POC Glucose (mg/dL) 203 H (70-110) mg/dL 11/02/23 11/02/23 11/03/23 Range/Units 16:48 20:37 06:08 WBC (3.8-10.6) k/uL RBC (4.30-5.90) m/uL Hgb (13.0-17.5) gm/dL Hct (39.0-53.0) % Neutrophils # (1.3-7.7) k/uL Chloride (98-107) mmol/L BUN (9-20) mg/dL Glucose (74-99) mg/dL POC Glucose (mg/dL) 178 H 131 H 130 H (70-110) mg/dL 11/03/23 11/03/23 Range/Units 06:57 06:57 WBC (3.8-10.6) k/uL RBC 2.92 L (4.30-5.90) m/uL Hgb 8.6 L (13.0-17.5) gm/dL Hct 27.1 L (39.0-53.0) % Neutrophils # 8.4 H (1.3-7.7) k/uL Chloride 111 H (98-107) mmol/L BUN 21 H (9-20) mg/dL Glucose 106 H (74-99) mg/dL POC Glucose (mg/dL) (70-110) mg/dL
--- NOTE | 2023-11-03 11:11 | P.DS ---
Providers Date of admission: 10/25/23 16:50 Expected date of discharge: 11/03/23 Attending physician: Андрей Perez Consults: 10/25/23 16:49 Consult Physician Routine Consulting Provider: Jose Jin Consult Reason/Comments: adilson Do you want consulting provider notified?: Yes 10/26/23 10:50 Consult Physician Routine Consulting Provider: Mariposa Palomo Consult Reason/Comments: change in mrental status Do you want consulting provider notified?: Yes 10/26/23 18:08 Consult Physician Routine Consulting Provider: Terry Mir Consult Reason/Comments: elevated trop Do you want consulting provider notified?: Yes 10/26/23 19:24 Consult Physician Routine Consulting Provider: Shruti Mcadams Consult Reason/Comments: UTI Do you want consulting provider notified?: Yes 10/27/23 09:59 Consult Physician Routine Consulting Provider: Maria G Gibson Consult Reason/Comments: anemia Do you want consulting provider notified?: Yes Primary care physician: Андрей Perez Hospital Course: Final diagnoses Change in mental status, metabolic encephalopathy, multifactorial secondary to acute bilateral CVAs, renal failure in a patient with history of 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 Brain MRI reported acute bilateral CVAs- high left parietal lobe and small focal area of ischemia in the right centrum semiovale. TOMASA reported PFO, closure evaluation outpatient. Stress cardiomyopathy, etiology unclear, possibly tachycardia induced CMP, 10/31/2023 new T wave inversions consistent with stress cardiomyopathy as per cardiology. Further evaluation outpatient with cardiology. Ascending aorta 4.0 cm Hypotension, improved with IV fluid hydration. Dehydration secondary to the above Acute renal failure secondary to ATN related to hypotension, urinary retention, medications. Resolved. Seizure activity reported by , recently while inpatient at [facility], also possibly at [facility], suspect hemodynamic related as well as related to acute renal failure. Metabolic acidosis secondary to #1, improved Possible acute UTI, original UA not available, UA with reflex to culture reordered. Elevated troponins, not suggestive of acute coronary syndrome as per cardiology. Lactic acidosis resolved with IV fluid hydration Acute anemia, in a patient with recent history of recent colectomy with ileos navarro, massive GI bleed with multiple units of packed RBC transfusions at [facility], possibly hemodilutional, iron deficient. Close monitoring. Urinary retention, required Leach catheter Diabetes mellitus, hemoglobin A1c 5.7 Hypertension Hyperlipidemia Sleep apnea Former nicotine dependence Hospital course:This is a 63-year-old male resident of with past medical history significant for recent colon resection with ostomy at [facility] with an extended stay inpatient of 1 month with multiple blood transfusions, seizures, including ICU admission reported ,discharged to [facility] subacute rehab October 22 ,diabetes mellitus, hypertension, medication noncompliance, left thalamic hemorrhage with ischemic left basal ganglia CVA, diverticulosis, internal hemorrhoids and multiple other medical issues presented to the ER with complaints of difficulty urinating, dyspnea and periods of unresponsiveness as reported per Kevin .Kevin liaison reports patient was bladder scaned for 200 mL's at 1:30 PM, decreased O2 sat to 82% on room air, 2 L applied, O2 sat increased to 92% and patient was transferred to [facility] ER. at bedside reports she was told by Kevin that patient had a seizure. On admission, Leach catheter was placed with immediate return of 500 mL of urine followed by another 600ml. Hypotensive on admission with lowest blood pressure recorded as 65/50, heart rate 85, respiratory rate 20, maintaining O2 sats of 100% on 4 L nasal cannula, temperature pending. Received multiple fluid boluses and currently receiving IV fluid hydration of saline 130 MLS per hour. Serum creatinine was 5.5, currently 4.96, baseline creatinine 1. Bicarb 17, bicarb drip ordered. Chest x-ray reported no acute cardiopulmonary disease/process. Brain CT reported no acute intracranial abnormality, 2 cm area of encephalomalacia within the left occipital parietal lobe likely related to remote infarct. Denies chest pain, palpitations .troponin elevated 1.250, repeat level ordered. 10/27/2023 troponins 1.250, 0.334, 0.277 , evaluated by cardiology, echo ordered. Evaluated by neurology, EEG pending. cefepime initiated per infectious disease. UA reporting moderate triple phosphate crystals, greater than 10 urine WBCs, moderate leukocytes, negative nitrates, moderate blood, 1+ close, 1+ protein. Sensorium significantly improved.Maintained on IV bicarb, bicarb remains at 17 and Leach catheter secondary to urinary retention. Creatinine improving, decreased to 2.85. hemoglobin 8, platelets 200. Reticulocyte count within normal limits, 1. No bleeding. denies abdominal pain. Blood pressures soft. 10/28/2023 at bedside reports patient's mental status/dysarthria is at about 47 % of baseline. EEG reported abnormal due to background slowing of moderate degree suggestive of generalized cerebral dysfunction, can be seen with toxic metabolic encephalopathy or related to diffuse structural brain abnormality, no epileptiform activity seen. Just returned back from brain MRI. Echocardiogram reported normal LV function.hemoglobin 8.3 with no bleeding noted. Iron 21. 24- hour I AND O reporting urine output of 2 L. BMP pending. 10/29/2023 Mentation improved .telemetry sinus rhythm, denies chest pain, palpitations or shortness of breath. Significant improvement in renal function, BUN 14, creatinine 0.9. Antihypertensives remain on hold, blood pressures run jet higher , systolic blood pressure in the 150s, nephrology okayed resuming lisinopril .Bicarb 30, Bicarb Drip Discontinued. continue O2 sats in the high 90s on room air. Continues on cefepime as per ID, Afebrile, normal WBC. Denies nausea, vomiting or diarrhea. Denies abdominal pain or tenderness. hemoglobin 8.2, platelets 190. Potassium 3.9, potassium supplementation ordered, magnesium level added on. Blood sugars controlled. MRI reported subcortical edema noted within the left high parietal lobe compatible with acute CVA, also focal area of increased signal within the right centrum semiovale. Plavix started as per neurology related to patient failed aspirin regime. Potassium 3.1, supplements ordered. Magnesium level ordered. Hemoglobin 8.2, platelets 190. Denies chest pain, palpitations or shortness of breath. 11/01/2023 Patient is awake alert vital signs are stable, hemoglobin is 10 today, patient is hemodynamically stable, renal function is back to normal Encouraging oral fluids and oral nutritional intake 11/02/2023 no bleeding reported, hemoglobin 9.3, platelets 320. Renal function improved, creatinine 0.8, with IV fluids and Leach catheter for urinary reten tion .continues on oral Lasix, spontaneously voiding. magnesium oxide initiated, magnesium 1.7. Tachycardic yesterday, heart rate currently in the mid 90s. TOMASA reported severely reduced global LV systolic function, severely reduced LA dilatation, severely elevated LA pressures, PFO with [id number] shunting, no evidence of intracardiac thrombus, no evidence of vegetation or infective endocarditis, ascending aorta measured 4.0 cm. Afebrile, WBC 12, blood cultures reporting no growth. Denies nausea, vomiting or diarrhea. Denies abdominal pain. denies chest pain, palpitations or shortness of breath. Maintaining O2 sats in the 90s on room air. 11/03/2023 significant clinical improvement. Feels more energetic today. Denies chest pain, palpitations or shortness of breath. VSS, Maintaining O2 sats of 100% on room air. LifeVest being applied. Cleared by cardiology for discharge. Patient will be discharged to [facility] subacute rehab today in stable condition with guarded prognosis. The impression and plan of care has been dictated as directed. : I performed a history and examination of this patient, discussed the same with the dictator. I agree with the dictator's note ,documented as a scribe. Any additional findings or plans will be noted. Patient Condition at Discharge: Stable Plan - Discharge Summary New Discharge Prescriptions: New Apixaban [Eliquis] 5 mg PO BID tab cefUROXime axetiL [Ceftin] 500 mg PO BID 5 Days #10 tab lisinopriL [Zestril] 5 mg PO DAILY tab Continue Pantoprazole [Protonix] 40 mg PO DAILY@0800 ondansetron HCL [Zofran] 8 mg PO TID@0800,1200,1700 Aspirin EC [Ecotrin Low Dose] 81 mg PO DAILY@0800 Dicyclomine [Bentyl] 10 mg PO TID@0800,1200,1700 Mirtazapine 30 mg PO HS@2100 NIFEdipine XL [Procardia XL] 60 mg PO DAILY@0800 Sertraline [Zoloft] 100 mg PO DAILY@0800 metFORMIN HCL 500 mg PO BID@0800,1700 Gabapentin [Neurontin] 100 mg PO TID@0600,1200,1700 Docusate [Colace] 100 mg PO BID@0800,1700 Atorvastatin [Lipitor] 80 mg PO DAILY@0800 Baclofen 10 mg PO QID@08,12,17,21 Cholestyramine (with Sugar) [Cholestyramine Powder] 4 gm PO DAILY PRN PRN Reason: LOOSE STOOLS Loperamide [Imodium] 4 mg PO QID@00,06,12,18 Discontinued lisinopriL [Zestril] 20 mg PO DAILY@0800 Discharge Medication List Aspirin EC [Ecotrin Low Dose] 81 mg PO DAILY@0800 12/20/21 [History] Atorvastatin [Lipitor] 80 mg PO DAILY@0800 12/20/21 [History] Docusate [Colace] 100 mg PO BID@0800,1700 12/20/21 [History] Gabapentin [Neurontin] 100 mg PO TID@0600,1200,1700 12/20/21 [History] Pantoprazole [Protonix] 40 mg PO DAILY@0800 12/20/21 [History] metFORMIN HCL 500 mg PO BID@0800,1700 12/20/21 [History] ondansetron HCL [Zofran] 8 mg PO TID@0800,1200,1700 12/20/21 [History] Baclofen 10 mg PO QID@08,12,17,21 10/25/23 [History] Cholestyramine (with Sugar) [Cholestyramine Powder] 4 gm PO DAILY PRN 10/25/23 [History] Dicyclomine [Bentyl] 10 mg PO TID@0800,1200,1700 10/25/23 [History] Loperamide [Imodium] 4 mg PO QID@00,06,12,18 10/25/23 [History] Mirtazapine 30 mg PO HS@2100 10/25/23 [History] NIFEdipine XL [Procardia XL] 60 mg PO DAILY@0800 10/25/23 [History] Sertraline [Zoloft] 100 mg PO DAILY@0800 10/25/23 [History] cefUROXime axetiL [Ceftin] 500 mg PO BID 5 Days #10 tab 10/29/23 [Rx] Apixaban [Eliquis] 5 mg PO BID tab 11/02/23 [Rx] lisinopriL [Zestril] 5 mg PO DAILY tab 11/02/23 [Rx] Follow up Appointment(s)/Referral(s): Giles Núñez MD [Medical Doctor] - 1 Week Андрей Perez MD [Primary Care Provider] - 1-2 days Activity/Diet/Wound Care/Special Instructions: [facility] LifeVest pending. CBC, BMP in 2 days TOMASA outpatient in a couple weeks after acute issues have resolved as per cardiology Ostomy appliance changed 11/01/23. Two piece appliance flange #[id number] with pouch #[id number]. Discharge Disposition: TRANSFER TO SNF/ECF
[2023-11-03 11:34] LABS: Glucose,Whole Blood 143 mg/dL (70-110)
--- NOTE | 2023-11-03 11:43 | P.PN ---
Subjective Patient is seen in follow-up for acute kidney injury. Admits to good urine output. Oral intake fair. No vomiting or diarrhea. Vital signs are stable. General: No acute distress. HEENT: Head exam is unremarkable. LUNGS: No audible rhonchi or wheezes. HEART: Rate and Rhythm are regular. ABDOMEN: Nontender. EXTREMITITES: No edema. Objective - Vital Signs Vital signs: Vital Signs Temp 98.3 F 11/03/23 08:06 Pulse 94 11/03/23 08:06 Resp 16 11/03/23 08:06 BP 128/86 11/03/23 08:06 Pulse Ox 100 11/03/23 08:06 FiO2 21 11/02/23 07:36 Intake & Output 11/02/23 11/03/23 11/03/23 18:59 06:59 18:59 Intake Total 660 200 240 Output Total 125 1000 50 Balance 535 -800 190 Intake: Oral 660 200 240 Output: Urine 700 Stool 125 300 50 Other: Voiding Method Urinal Urinal Urinal - Labs CBC & Chem 7: 11/03/23 06:57 11/03/23 06:57 Labs: Abnormal Lab Results - Last 24 Hours (Table) 11/02/23 11/02/23 11/03/23 Range/Units 16:48 20:37 06:08 RBC (4.30-5.90) m/uL Hgb (13.0-17.5) gm/dL Hct (39.0-53.0) % Neutrophils # (1.3-7.7) k/uL Chloride (98-107) mmol/L BUN (9-20) mg/dL Glucose (74-99) mg/dL POC Glucose (mg/dL) 178 H 131 H 130 H (70-110) mg/dL 11/03/23 11/03/23 11/03/23 Range/Units 06:57 06:57 11:32 RBC 2.92 L (4.30-5.90) m/uL Hgb 8.6 L (13.0-17.5) gm/dL Hct 27.1 L (39.0-53.0) % Neutrophils # 8.4 H (1.3-7.7) k/uL Chloride 111 H (98-107) mmol/L BUN 21 H (9-20) mg/dL Glucose 106 H (74-99) mg/dL POC Glucose (mg/dL) 143 H (70-110) mg/dL Assessment and Plan Plan: Assessment: 1. Acute kidney injury secondary to ATN secondary to hypotension and urinary retention. No hydronephrosis noted on kidney ultrasound. 1+ protein and no blood on UA. Repeat UA from October 29, 2023 showed no proteinuria. Acute kidney injury now resolved. 2. Urinary retention status post Leach catheter placement. Leach catheter now removed. On Flomax. 3. Hypokalemia from poor intake and diuresis. Replaced. Better. 4. Hypomagnesemia from poor intake and diuresis. Replaced. On oral magnesium oxide. 5. Recent GI bleed status post colectomy end ileostomy placement. Surgery following. 6. Anemia. Iron deficiency noted. 7. Chronic systolic CHF with ejection fraction of 15 to 20%. Plan: Maintain low-dose Lasix. Encouraged oral intake. Receiving IV iron. Dose of lisinopril decreased 11/01/23. Hold for systolic blood pressure less than 110.
[2023-11-03 12:22] VITALS: BP 132/86; PULSE 87; TEMP 97.9
--- NOTE | 2023-11-03 14:19 | P.PN ---
Subjective Progress Note Date: 11/03/23 CHIEF COMPLAINT: Hypotension and unresponsiveness HISTORY OF PRESENT ILLNESS: Patient brought in from [facility] due to hypotension, unresponsiveness and concerns for possible seizure. Surgical service following in regards to his anemia. Patient has had no bloody output from his ileostomy. Patient apparently had some blood passage from the rectum Thursday. This has resolved. Afebrile. Tachycardia resolved. Hemoglobin slightly down from 9.3-8.6 PHYSICAL EXAM: VITAL SIGNS: Reviewed GENERAL: Well-developed in no acute distress. HEENT: No sclera icterus. Extraocular movements grossly intact. Moist buccal mucosa. Head is atraumatic, normocephalic. Hears conversational speech. No nasal dr ainage. NECK: Supple without lymphadenopathy. CHEST: Non-labored respirations and equal bilateral excursions. CARDIOVASCULAR: Palpable 2+ radial pulses. ABDOMEN: Soft. Nondistended. Nontender ileostomy with light pink stoma. Stool is thick and greenish in color MUSCULOSKELETAL: No clubbing or cyanosis. NEUROLOGIC: No focal or lateralizing signs. Cranial nerves II through XII grossly intact. PSYCH: Appropriate affect. Alert and oriented to person, place and time. SKIN: Well perfused. Good skin turgor. ASSESSMENT: 1. Anemia. No signs of active bleeding at this time 2. Recent GI bleed, likely diverticular bleed with colectomy and ileostomy placement about 3 weeks ago at [facility] 3. Hypotension improved with IV fluids 4. Acute kidney injury resolved 5. Altered mental status 6. Cardiomyopathy followed by cardiology service 7. Previous hospitalization contributing to patient's iron deficiency anemia PLAN: -No plans for endoscopy -Patient can be discharged from surgical standpoint -Continue to monitor for any signs or symptoms of bleeding -Continue to monitor hemoglobin outpatient Physician Serologist note has been reviewed by physician. Signing provider agrees with the documented findings, assessment, and plan of care. Objective - Vital Signs Vital signs: Vital Signs Temp 97.9 F 11/03/23 12:00 Pulse 87 11/03/23 12:00 Resp 16 11/03/23 12:00 BP 132/86 11/03/23 12:00 Pulse Ox 99 11/03/23 12:00 FiO2 21 11/02/23 07:36 Intake & Output 03/11/24 03/12/24 03/12/24 18:59 06:59 18:59 Intake Total 660 200 240 Output Total 125 1000 50 Balance 535 -800 190 Intake: Oral 660 200 240 Output: Urine 700 Stool 125 300 50 Other: Voiding Method Urinal Urinal Urinal - Labs CBC & Chem 7: 11/03/23 06:57 11/03/23 06:57 Labs: Abnormal Lab Results - Last 24 Hours (Table) 11/02/23 11/02/23 11/03/23 Range/Units 16:48 20:37 06:08 RBC (4.30-5.90) m/uL Hgb (13.0-17.5) gm/dL Hct (39.0-53.0) % Neutrophils # (1.3-7.7) k/uL Chloride (98-107) mmol/L BUN (9-20) mg/dL Glucose (74-99) mg/dL POC Glucose (mg/dL) 178 H 131 H 130 H (70-110) mg/dL 11/03/23 11/03/23 11/03/23 Range/Units 06:57 06:57 11:32 RBC 2.92 L (4.30-5.90) m/uL Hgb 8.6 L (13.0-17.5) gm/dL Hct 27.1 L (39.0-53.0) % Neutrophils # 8.4 H (1.3-7.7) k/uL Chloride 111 H (98-107) mmol/L BUN 21 H (9-20) mg/dL Glucose 106 H (74-99) mg/dL POC Glucose (mg/dL) 143 H (70-110) mg/dL
--- NOTE | 2023-11-03 15:09 | P.PN ---
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 On today's evaluation that is 11/03/2023, the patient continues to be afebrile, the patient is on room air and breathing comfortably, the Pt denies having any chest pain or cough, the patient denies having any abdominal pain no vomiting or any diarrhea has been reported by the nursing staff. Patient white count is normal at 10.6 creatinine 0.79 blood culture negative Objective - Vital Signs Vital signs: Vital Signs Temp 97.9 F 11/03/23 12:00 Pulse 87 11/03/23 12:00 Resp 16 11/03/23 12:00 BP 132/86 11/03/23 12:00 Pulse Ox 99 11/03/23 12:00 FiO2 21 11/02/23 07:36 Intake & Output 11/02/23 11/03/23 11/03/23 18:59 06:59 18:59 Intake Total 660 200 240 Output Total 125 1000 50 Balance 535 -800 190 Intake: Oral 660 200 240 Output: Urine 700 Stool 125 300 50 Other: Voiding Method Urinal Urinal Urinal - Exam GENERAL DESCRIPTION: Middle-age male lying in bed in no distress RESPIRATORY SYSTEM: Unlabored breathing , decreased breath sounds at bases HEART: S1 S2 regular rate and rhythm , ABDOMEN: Soft , no tenderness EXTREMITIES: No edema feet - Labs CBC & Chem 7: 11/03/23 06:57 11/03/23 06:57 Labs: Abnormal Lab Results - Last 24 Hours (Table) 11/02/23 11/02/23 11/03/23 Range/Units 16:48 20:37 06:08 RBC (4.30-5.90) m/uL Hgb (13.0-17.5) gm/dL Hct (39.0-53.0) % Neutrophils # (1.3-7.7) k/uL Chloride (98-107) mmol/L BUN (9-20) mg/dL Glucose (74-99) mg/dL POC Glucose (mg/dL) 178 H 131 H 130 H (70-110) mg/dL 11/03/23 11/03/2311/02/24 Range/Units 06:57 06:57 11:32 RBC 2.92 L (4.30-5.90) m/uL Hgb 8.6 L (13.0-17.5) gm/dL Hct 27.1 L (39.0-53.0) % Neutrophils # 8.4 H (1.3-7.7) k/uL Chloride 111 H (98-107) mmol/L BUN 21 H (9-20) mg/dL Glucose 106 H (74-99) mg/dL POC Glucose (mg/dL) 143 H (70-110) mg/dL Assessment and Plan (1) Urinary tract infection Status: Acute Code(s): N39.0 - URINARY TRACT INFECTION, SITE NOT SPECIFIED SNOMED Code(s): 43264897 (2) Leukocytosis Status: Acute Code(s): D72.829 - ELEVATED WHITE BLOOD CELL COUNT, UNSPECIFIED SNOMED Code(s): 795360496 (3) Thrush Status: Acute Code(s): B37.0 - CANDIDAL STOMATITIS SNOMED Code(s): 19697770 Plan: 1patient presented to hospital with weakness decreased level of responsiveness, patient did have a urinary symptoms also elevated white count positive UA concerning for symptomatic ureteric infection likely from enteric gram-negative pathogen keeping in mind her recent prolonged stay at [facility] will need to cover for resistant gram-negative 2-patient has shown clinical improvement, repeat UA not significantly positive and the patient has received adequate cefepime and white count normalized culture has been negative cefepime can be discontinued 3oral thrush more like responsible for the elevated white count, patient had normalization of his white count, patient to continue with nystatin swish and swallow x 7 days on discharge Dictation was produced using [employer] dictation software. please excuse any grammatical, word or spelling errors. Time with Patient: Less than 30
--- NOTE | 2023-11-09 07:39 | CDI ---
Documentation Clarification Form Date: 11/09/2023 From: Deysi Davis Admit Date: 10/25/2023 04:50:00 PM Patient Name: Dillan Mosquera Visit Number: [id number] Discharge Date: 11/03/2023 01:10:00 PM ATTENTION: The Clinical Documentation Specialists (CDI) and [facility] Coding Staff appreciate your assistance in clarifying documentation. Please respond to the clarification below the line at the bottom and electronically sign. The CDI & [facility] Coding staff will review the response and follow-up if needed. Please note: Queries are made part of the Legal Health Record. If you have any questions, please contact the author of this message via ITS. Dr. Андрей Perez, Your patient has troponin level(s) of: [insert lab value, date]. Please clarify if there is an additional diagnosis and/or clinical significance related to this value. Patient history/risk factors: ATN, hypotension, urinary retention, metabolic acidosis, poss UTI, cute bilateralCVAs- high left parietal lobe and small focal area ofischemiain the right centrum semiovale Clinical indicators: Troponins: 1.250 (3/3), 0.334 & 0.277 (3/4) Per cardiology: abnormal troponins, not suggestive of acute coronary syndrome, likely secondary to hypotension & acute renal failure Treatment: IV fluids, 2D echo, monitor BP continue telemetry monitoring Is there an additional diagnosis and/or clinical significance related to the above lab result/information: [ ] Type 2 MO due to (specify cause ____) [ ] Non-ischemic with acute myocardial injury [ X ] No additional diagnosis/Not clinically significant [ ] Other, please specify [ ] Unable to determine Reference: [employer] Fourth [place] Definition of Myocardial Infraction Elevated Cardiac Troponin >99th percentile with Troponin rise and/or fall With Acute ischemia Acute Myocardial Infarction Atherosclerosis thrombosis Type I MO Oxygen supply and demand imbalance Type II MO (Please indicate etiology) Without acute ischemia Acute Myocardial Injury MTDD
== END 2023-11-03 13:10 | DRG 64 ==
LOC: EC 14:25 → 3SCARD 16:50
PROVIDERS: ADMIT Family Medicine; ATTEND Family Medicine
PROC: B24BZZ4 Ultrasonography of Heart with Aorta, Transesophageal (ICD-10-PCS; principal; 2023-10-30 12:00)
DX: I63.81 Other cerebral infarction due to occlusion or stenosis of small artery (principal); G93.41 Metabolic encephalopathy; N17.0 Acute kidney failure with tubular necrosis; I50.23 Acute on chronic systolic (congestive) heart failure; E87.20 Acidosis, unspecified; B37.0 Candidal stomatitis; I69.351 Hemiplegia and hemiparesis following cerebral infarction affecting right dominant side; D62 Acute posthemorrhagic anemia; Q21.12 Patent foramen ovale; N39.0 Urinary tract infection, site not specified; I95.9 Hypotension, unspecified; E86.0 Dehydration; G93.89 Other specified disorders of brain; I11.0 Hypertensive heart disease with heart failure; Z43.2 Encounter for attention to ileostomy; G40.909 Epilepsy, unspecified, not intractable, without status epilepticus; E11.9 Type 2 diabetes mellitus without complications; F32.A Depression, unspecified; Z28.310 Unvaccinated for COVID-19; E78.5 Hyperlipidemia, unspecified; G47.30 Sleep apnea, unspecified; R33.9 Retention of urine, unspecified; E83.42 Hypomagnesemia; E87.5 Hyperkalemia; E87.6 Hypokalemia; N28.1 Cyst of kidney, acquired; R47.1 Dysarthria and anarthria; R09.02 Hypoxemia; K64.8 Other hemorrhoids; K57.90 Diverticulosis of intestine, part unspecified, without perforation or abscess without bleeding; Z79.82 Long term (current) use of aspirin; Z79.84 Long term (current) use of oral hypoglycemic drugs; Z79.899 Other long term (current) drug therapy; Z87.891 Personal history of nicotine dependence
CPT/HCPCS: 36415; 51702; 70450; 70551; 71045; 74176; 76770; 80048; 80053; 80306; 81001; 82550; 83036; 83540; 83550; 83605; 83735; 84100; 84443; 84484; 85025; 85027; 85045; 85610; 85730; 87040; 93005; 93270; 93306; 93308; 93312; 93320; 93325; 94760; 95816; 96361; 96365; 96367; 96375; 96376; 99285

== ENCOUNTER 2023-11-27 12:00 | Observation (INO) | payer OTHER, MEDICAID ==
--- NOTE | 2023-11-27 13:30 | ED ---
Abdominal Pain HPI - General Chief Complaint: Abdominal Pain Stated Complaint: GI Issues Time Seen by Provider: 11/27/23 13:30 Source: patient Mode of arrival: ambulatory Limitations: no limitations - History of Present Illness Initial Comments: 63-year-old male from home with report of nausea and vomiting. Family at bedside helps provide the history. States that the patient has been unable to eat or drink anything since he has gone home from the hospital. He was recently hospitalized for CVA. Patient also recently had colon resection. Patient will attempt to eat and drink however the food and water comes right back up. Patient has mild left lower quadrant pain and states this has been going on for a while. His urine is extremely dark. Reports normal stool output from his ostomy. No report of any fevers. No confusion. No other alleviating, precipitating modifying factors - Related Data Home Medications Medication Instructions Recorded Confirmed Atorvastatin [Lipitor] 80 mg PO DAILY@0800 12/20/21 11/27/23 Docusate [Colace] 100 mg PO BID@0800,1700 12/20/21 11/27/23 Gabapentin [Neurontin] 100 mg PO TID@0800,1400,2100 12/20/21 11/27/23 Pantoprazole [Protonix] 40 mg PO DAILY@0800 12/20/21 11/27/23 metFORMIN HCL 500 mg PO BID@0800,1700 12/20/21 11/27/23 Baclofen 10 mg PO QID@08,12,,10/25/23 11/27/23 Dicyclomine [Bentyl] 10 mg PO TID@0800,1200,1700 10/25/23 11/27/23 Loperamide [Imodium] 4 mg PO QID@08,12,17,10/25/23 11/27/23 Mirtazapine 30 mg PO HS@2100 10/25/23 11/27/23 Sertraline [Zoloft] 100 mg PO DAILY@0800 10/25/23 11/27/23 Acetaminophen [Tylenol] 650 mg PO Q4H PRN 11/27/23 11/27/23 Apixaban [Eliquis] 5 mg PO BID@0800,1700 11/27/23 11/27/23 INSULIN LISPRO (HumaLOG) [humaLOG] See Protocol SQ TID PRN 11/27/23 11/27/23 Ondansetron [Zofran] 4 mg PO TID@0800,1400,2100 11/27/23 11/27/23 carvediloL [Coreg] 6.25 mg PO BID@0800,1700 11/27/23 11/27/23 droNABinol [Marinol] 2.5 mg PO BID@0800,1700 11/27/23 11/27/23 lisinopriL [Zestril] 5 mg PO DAILY@1200 11/27/23 11/27/23 Allergies Allergy/AdvReac Type Severity Reaction Status Date / Time No Known Allergies Allergy Verified 11/27/23 16:14 Review of Systems ROS Statement: Those systems with pertinent positive or pertinent negative responses have been documented in the HPI. ROS Other: All systems not noted in ROS Statement are negative. Past Medical History Past Medical History: CVA/TIA, Diabetes Mellitus, Hyperlipidemia, Hypertension, Sleep Apnea/CPAP/BIPAP Additional Past Medical History / Comment(s): uses CPAP, CEREBRAL BLEED 08/19/22 RIGHT SIDE WEAKNESS History of Any Multi-Drug Resistant Organisms: None Reported Past Surgical History: Heart Catheterization, Hernia Repair Additional Past Surgical History / Comment(s): COLONOSCOPY Past Anesthesia/Blood Transfusion Reactions: No Reported Reaction Past Psychological History: Depression Smoking Status: Former smoker Past Alcohol Use History: Occasional Past Drug Use History: None Reported - Past Family History Sister(s) Family Medical History: Cancer Additional Family Medical History / Comment(s): 1 SISTER FROM ESOPHAGEL CANCER. 1 SISTER HAD BREAST CANCER General Exam Limitations: no limitations General appearance: alert, in no apparent distress Head exam: Present: atraumatic, normocephalic, normal inspection Eye exam: Present: normal appearance, PERRL, EOMI. Absent: scleral icterus, conjunctival injection, periorbital swelling ENT exam: Present: normal exam, mucous membranes moist Neck exam: Present: normal inspection. Absent: tenderness, meningismus, lymphadenopathy Respiratory exam: Present: normal lung sounds bilaterally. Absent: respiratory distress, wheezes, rales, rhonchi, stridor Cardiovascular Exam: Present: normal rhythm, tachycardia, normal heart sounds. Absent: systolic murmur, diastolic murmur, rubs, gallop, clicks GI/Abdominal exam: Present: soft, normal bowel sounds. Absent: distended, tenderness, guarding, rebound, rigid Extremities exam: Present: normal inspection, full ROM, normal capillary refill. Absent: tenderness, pedal edema, joint swelling, calf tenderness Back exam: Present: normal inspection Neurological exam: Present: alert, oriented X3, CN II-XII intact Psychiatric exam: Present: normal affect, normal mood Skin exam: Present: warm, dry, intact, normal color. Absent: rash Course Vital Signs 11/27/23 11/27/23 11/27/23 12:02 14:43 15:00 Temperature 97.3 F L Pulse Rate 103 H 112 H 80 Respiratory 18 20 16 Rate Blood Pressure 120/85 114/83 112/88 O2 Sat by Pulse 99 98 99 Oximetry 11/27/23 11/27/23 16:00 18:02 Temperature Pulse Rate 80 89 Respiratory 16 16 Rate Blood Pressure 125/91 115/85 O2 Sat by Pulse 98 98 Oximetry Medical Decision Making - Medical Decision Making Was pt. sent in by a medical professional or institution (, PA, [facility]ER, urgent care, hospital, or shelter...) When possible be specific @ -Patient was sent in from Dr. Gardner as did reach out to him Did you speak to anyone other than the patient for history (EMS, parent, family, police, friend...)? What history was obtained from this source @ -Spoke with the for history Did you review nursing and triage notes (agree or disagree)? Why? @ -I reviewed and agree with nursing and triage notes Were old charts reviewed (outside hosp., previous admission, EMS record, old EKG, old radiological studies, urgent care reports/EKG's, shelter records)? Report findings @ -I reviewed patient's recent discharge summary as he was just hospitalized Differential Diagnosis (chest pain, altered mental status, abdominal pain women, abdominal pain men, vaginal bleeding, weakness, fever, dyspnea, syncope, headache, dizziness, GI bleed, back pain, seizure, CVA, palpatations, mental health, musculoskeletal)? @ -Differential Abdominal Pain Men: Appendicitis, cholecystitis, diverticulosis, ischemic bowel, pancreatitis, hepatitis, UTI, gastroenteritis, AAA, incarcerated hernia, bowel obstruction, constipation, inflammatory bowel, hepatitis, peptic ulcer disease, splenic infarction, perforated viscus, testicular torsion, this is not meant to be an all-inclusive list EKG interpreted by me (3pts min.). @ -Yes and demonstrates sinus tachycardia with a rate of 112. MS interval 196. QRS 122. QTc of 402. No acute ST segment elevations or depressions X-rays interpreted by me (1pt min.). @ -None done CT interpreted by me (1pt min.). @ -None done U/S interpreted by me (1pt. min.). @ -None done What testing was considered but not performed or refused? (CT, X-rays, U/S, labs)? Why? @ -None What meds were considered but not given or refused? Why? @ -None Did you discuss the management of the patient with other professionals (professionals i.e. Dr., PA, [employer]ER, lab, RT, psych nurse, nephrology social worker, skirt clipper, teacher, transportation security officer, correctional case records supervisor)? Give summary @ -Spoke with Dr. gardner who agreed to admission Was smoking cessation discussed for >3mins.? @ -No Was critical care preformed (if so, how long)? @ -No Were there social determinants of health that impacted care today? How? (Homelessness, low income, unemployed, alcoholism, drug addiction, transportation, low edu. Level, literacy, decrease access to med. care, fci, rehab)? @ -No Was there de-escalation of care discussed even if they declined (Discuss DNR or withdrawal of care, Hospice)? DNR status @ -No What co-morbidities impacted this encounter? (DM, HTN, Smoking, COPD, CAD, Cancer, CVA, ARF, Chemo, Hep., AIDS, mental health diagnosis, sleep apnea, morbid obesity)? @ -Recent CVA, colon resection with ileostomy Was patient admitted / discharged? Hospital course, mention meds given and route, prescriptions, significant lab abnormalities, going to OR and other pertinent info. @ -Upon arrival patient was placed into room 19. Thorough history and physical exam was performed. Patient has not been able to eat or drink since discharge. This may be related to mechanical obstruction versus effect of stroke. IV was established and patient given intravenous hydration. Laboratory studies are conducted. Results are discussed with Dr. Gardner. As he is unable to intake food he was agreeable to admitting the patient with surgery to consult. Patient was agreeable to this. Remained in stable condition awaiting a bed on the floor Undiagnosed new problem with uncertain prognosis? @ -Yes Drug Therapy requiring intensive monitoring for toxicity (Heparin, Nitro, Insulin, Cardizem)? @ -No Were any procedures done? @ -No Diagnosis/symptom? @ -Intractable nausea vomiting, acute dehydration, LURDES, recent CVA Acute, or Chronic, or Acute on Chronic? @ -Acute Uncomplicated (without systemic symptoms) or Complicated (systemic symptoms)? @ -Complicated Side effects of treatment? @ -No Exacerbation, Progression, or Severe Exacerbation? @ -No Poses a threat to life or bodily function? How? (Chest pain, USA, CA, pneumonia, PE, COPD, DKA, ARF, appy, cholecystitis, CVA, Diverticulitis, Homicidal, Suicidal, threat to staff... and all critical care pts) @ -No - Lab Data Result diagrams: 11/28/23 07:03 11/28/23 07:03 Lab Results 11/27/23 11/27/23 11/27/23 Range/Units 14:03 14:03 14:03 WBC 8.8 (3.8-10.6) k/uL RBC 4.27 L (4.30-5.90) m/uL Hgb 12.3 L D (13.0-17.5) gm/dL Hct 37.9 L (39.0-53.0) % MCV 88.8 (80.0-100.0) fL MCH 28.8 (25.0-35.0) pg MCHC 32.4 (31.0-37.0) g/dL RDW 14.6 (11.5-15.5) % Plt Count 229 (150-450) k/uL MPV 8.9 Neutrophils % 80 % Lymphocytes % 14 % Monocytes % 4 % Eosinophils % 1 % Basophils % 0 % Neutrophils # 7.1 (1.3-7.7) k/uL Lymphocytes # 1.3 (1.0-4.8) k/uL Monocytes # 0.3 (0-1.0) k/uL Eosinophils # 0.1 (0-0.7) k/uL Basophils # 0.0 (0-0.2) k/uL PT (10.0-12.5) sec INR (<1.2) APTT (22.0-30.0) sec Sodium 138 (137-145) mmol/L Potassium 4.1 (3.5-5.1) mmol/L Chloride 106 (98-107) mmol/L Carbon Dioxide 13 L (22-30) mmol/L Anion Gap 19 mmol/L BUN 74 H (9-20) mg/dL Creatinine 1.85 H (0.66-1.25) mg/dL Est GFR (CKD-EPI)AfAm 45 (>60 ml/min/1.73 sqM) Est GFR (CKD-EPI)NonAf 39 (>60 ml/min/1.73 sqM) Glucose 139 H (74-99) mg/dL Plasma Lactic Acid [place] 1.5 (0.7-2.0) mmol/L Calcium 11.1 H (8.4-10.2) mg/dL Phosphorus 5.0 H (2.5-4.5) mg/dL Magnesium 1.9 (1.6-2.3) mg/dL Total Bilirubin 0.5 (0.2-1.3) mg/dL AST 24 (17-59) U/L ALT 23 (4-49) U/L Alkaline Phosphatase 75 (38-126) U/L Troponin I (0.000-0.034) ng/mL NT-Pro-B Natriuret Pep 213 pg/mL Total Protein 8.3 H (6.3-8.2) g/dL Albumin 5.0 (3.5-5.0) g/dL Influenza Type A (PCR) (Not Detectd) Influenza Type B (PCR) (Not Detectd) RSV (PCR) (Not Detectd) SARS-CoV-2 (PCR) (Not Detectd) 11/27/23 11/27/23 11/27/23 Range/Units 14:03 14:07 15:30 WBC (3.8-10.6) k/uL RBC (4.30-5.90) m/uL Hgb (13.0-17.5) gm/dL Hct (39.0-53.0) % MCV (80.0-100.0) fL MCH (25.0-35.0) pg MCHC (31.0-37.0) g/dL RDW (11.5-15.5) % Plt Count (150-450) k/uL MPV Neutrophils % % Lymphocytes % % Monocytes % % Eosinophils % % Basophils % % Neutrophils # (1.3-7.7) k/uL Lymphocytes # (1.0-4.8) k/uL Monocytes # (0-1.0) k/uL Eosinophils # (0-0.7) k/uL Basophils # (0-0.2) k/uL PT 11.3 (10.0-12.5) sec INR 1.0 (<1.2) APTT 20.7 L (22.0-30.0) sec Sodium (137-145) mmol/L Potassium (3.5-5.1) mmol/L Chloride (98-107) mmol/L Carbon Dioxide (22-30) mmol/L Anion Gap mmol/L BUN (9-20) mg/dL Creatinine (0.66-1.25) mg/dL Est GFR (CKD-EPI)AfAm (>60 ml/min/1.73 sqM) Est GFR (CKD-EPI)NonAf (>60 ml/min/1.73 sqM) Glucose (74-99) mg/dL Plasma Lactic Acid [place] (0.7-2.0) mmol/L Calcium (8.4-10.2) mg/dL Phosphorus (2.5-4.5) mg/dL Magnesium (1.6-2.3) mg/dL Total Bilirubin (0.2-1.3) mg/dL AST (17-59) U/L ALT (4-49) U/L Alkaline Phosphatase (38-126) U/L Troponin I 0.057 H* (0.000-0.034) ng/mL NT-Pro-B Natriuret Pep pg/mL Total Protein (6.3-8.2) g/dL Albumin (3.5-5.0) g/dL Influenza Type A (PCR) Not Detected (Not Detectd) Influenza Type B (PCR) Not Detected (Not Detectd) RSV (PCR) Not Detected (Not Detectd) SARS-CoV-2 (PCR) Not Detected (Not Detectd) Disposition Clinical Impression: Dehydration, LURDES (acute kidney injury), Nausea and vomiting Disposition: ADMITTED IP TO THIS [facility] Condition: Stable Is patient prescribed a controlled substance at d/c from ED?: No Time of Disposition: 16:52 Decision to Admit Reason: Admit from EC Decision Date: 11/27/23 Decision Time: 16:52
[2023-11-27 14:14] LABS: Basophils % (A) 0 %; Eosinophils # (A) 0.1 k/uL (0-0.7); Eosinophils % (A) 1 %; HCT 37.9 % (39.0-53.0); Lymphocytes # (A) 1.3 k/uL (1.0-4.8); Lymphocytes % (A) 14 %; MCH 28.8 pg (25.0-35.0); MCHC 32.4 g/dL (31.0-37.0); MCV 88.8 fL (80.0-100.0); Mean Platelet Volume 8.9; Monocytes # (A) 0.3 k/uL (0-1.0); Monocytes % (A) 4 %; Neutrophils # (A) 7.1 k/uL (1.3-7.7); Neutrophils % (A) 80 %; Platelet Count 229 k/uL (150-450); RBC 4.27 m/uL (4.30-5.90); RDW 14.6 % (11.5-15.5); WBC 8.8 k/uL (3.8-10.6)
[2023-11-27 14:18] LABS: HGB 12.3 gm/dL (13.0-17.5)
[2023-11-27 14:29] LABS: ALT 23 U/L (4-49); African American GFR (CKD) 45 (>60 ml/min/1.73 sqM); Anion Gap 19 mmol/L; Blood Urea Nitrogen 74 mg/dL (9-20); Calcium 11.1 mg/dL (8.4-10.2); Carbon Dioxide 13 mmol/L (22-30); Chloride 106 mmol/L (98-107); Glucose 139 mg/dL (74-99); Magnesium 1.9 mg/dL (1.6-2.3); Non-African American GFR(CKD) 39 (>60 ml/min/1.73 sqM); Sodium 138 mmol/L (137-145); Total Bilirubin 0.5 mg/dL (0.2-1.3)
[2023-11-27 14:37] LABS: NT-Pro-B-Type Natriuretic Pept 213 pg/mL
[2023-11-27 14:40] LABS: AST 24 U/L (17-59); Alkaline Phosphatase 75 U/L (38-126); Potassium 4.1 mmol/L (3.5-5.1); Total Protein 8.3 g/dL (6.3-8.2)
[2023-11-27] MEDS: SODIUM CHLORIDE 0.9% 1,000 ML IV STA (14:42)
[2023-11-27 15:57] LABS: Prothrombin Time 11.3 sec (10.0-12.5)
[2023-11-27 16:01] LABS: Partial Thromboplastin Time 20.7 sec (22.0-30.0)
[2023-11-27] MEDS: ONDANSETRON 4 MG/2 ML VIAL IVP STA (16:14)
[2023-11-27] MEDS ORDERED: ONDANSETRON 4 MG/2 ML VIAL IVP PRN (16:52)
[2023-11-27] MEDS ORDERED: NALOXONE 0.4 MG/ML 1 ML VIAL IV PRN (16:52)
[2023-11-27] MEDS: SODIUM CHLORIDE 0.9% 1,000 ML IV SCH (17:00)
--- NOTE | 2023-11-27 17:08 | XR ---
EXAMINATION TYPE: XR chest 2V DATE OF EXAM: 11/27/2023 COMPARISON: 10/25/2023 HISTORY: Shortness of breath TECHNIQUE: Frontal and lateral views of the chest are obtained. FINDINGS: Scattered senescent parenchymal changes noted. Hyperinflation compatible with COPD. No evidence for infiltrate. No evidence for atelectasis. Heart size is stable. Mediastinal structures are stable and grossly unremarkable. No evidence for hilar prominence. Degenerative changes dorsal spine. IMPRESSION: 1. No evidence for acute pulmonary disease.
[2023-11-27 18:42] LABS: Glucose,Whole Blood 91 mg/dL (70-110)
[2023-11-27 20:19] LABS: Appearance,Urine Cloudy (Clear); Bilirubin,Urine Negative (Negative); Blood,Urine Moderate (Negative); Calcium Oxalate Crystals,Urine Rare /hpf; Color,Urine Yellow; Glucose,Urine (UA) Negative (Negative); Hyaline Casts,Urine 1 /lpf (0-2); Ketones,Urine Negative (Negative); Leukocyte Esterase,Urine Trace (Negative); Mucus,Urine Rare /hpf; Nitrite,Urine Negative (Negative); PH, Urine 5.5 (5.0-8.0); Protein,Urine 1+ (Negative); RBC,Urine >182 /hpf (0-5); Specific Gravity,Urine 1.021 (1.001-1.035); Urobilinogen,Urine <2.0 mg/dL (<2.0); WBC,Urine 4 /hpf (0-5)
[2023-11-27] MEDS ORDERED: DEXTROSE 50% SYRINGE 50 ML IVP PRN ×2 (20:45)
[2023-11-27 20:47] LABS: Glucose,Whole Blood 96 mg/dL (70-110)
[2023-11-27] MEDS: INSULIN DETEMIR (LEVEMIR) 100 UNIT/ML SYR SQ SCH (22:27)
[2023-11-27] MEDS: INSULIN ASPART (NovoLOG) 100 UNIT/ML VIAL SQ SCH (22:27)
[2023-11-27] MEDS: BACLOFEN 10 MG TAB PO SCH (22:41)
[2023-11-27] MEDS: GABAPENTIN 100 MG CAP PO SCH (22:41)
[2023-11-27] MEDS: DICYCLOMINE 10 MG CAP PO SCH (22:42)
[2023-11-27] MEDS: LOPERAMIDE 2 MG CAP PO SCH (22:42)
[2023-11-27] MEDS: ACETAMINOPHEN IV (For NPO) 1,000 MG in EMPTY BAG 1 BAG IVPB SCH (22:42)
[2023-11-27] MEDS: SODIUM CHLORIDE 0.9% 2,000 ML IV ONE (23:41)
[2023-11-28 06:15] LABS: Glucose,Whole Blood 91 mg/dL (70-110)
--- NOTE | 2023-11-28 06:37 | P.HPIM ---
History of Present Illness H&P Date: 11/28/23 Chief Complaint: abdominal pain, nausea vomiting patient was recently seen in the office for follow-up after long hospitalization, recent colon resection and having difficulty keeping anything down, not drinking not eating. Mild left lower quadrant pain. Normal output noted from his ostomy. No fevers no confusion Review of Systems Constitutional: Reports anorexia, Reports fatigue, Reports weakness Ears, nose, mouth and throat: Reports as per HPI Cardiovascular: Reports dyspnea on exertion, Reports high blood pressure, Reports irregular heart beat Respiratory: Reports as per HPI Gastrointestinal: Reports abdominal pain, Reports nausea, Reports vomiting Genitourinary: Reports as per HPI Musculoskeletal: Reports as per HPI, Reports gait dysfunction Integumentary: Reports as per HPI Neurological: Reports aphasia, Reports balance difficulties Psychiatric: Reports as per HPI Endocrine: Reports polydipsia, Reports polyphagia, Reports polyuria Hematologic/Lymphatic: Reports as per HPI Allergic/Immunologic: Reports as per HPI Past Medical History Past Medical History: CVA/TIA, Diabetes Mellitus, Hyperlipidemia, Hypertension, Sleep Apnea/CPAP/BIPAP Additional Past Medical History / Comment(s): uses CPAP, CEREBRAL BLEED 08/19/22 RIGHT SIDE WEAKNESS History of Any Multi-Drug Resistant Organisms: None Reported Past Surgical History: Heart Catheterization, Hernia Repair Additional Past Surgical History / Comment(s): COLONOSCOPY Past Anesthesia/Blood Transfusion Reactions: No Reported Reaction Past Psychological History: Depression Smoking Status: Former smoker Past Alcohol Use History: Occasional Additional Past Alcohol Use History / Comment(s): STARTED SMOKING AT AGE 21 QUIT SMOKING AT AGE 37 SMOKED LESS THAN 1 PACK A MONTH Past Drug Use History: None Reported - Past Family History Sister(s) Family Medical History: Cancer Additional Family Medical History / Comment(s): 1 SISTER FROM ESOPHAGEL CANCER. 1 SISTER HAD BREAST CANCER Medications and Allergies Home Medications Medication Instructions Recorded Confirmed Type Atorvastatin [Lipitor] 80 mg PO DAILY@0800 12/20/21 11/27/23 History Docusate [Colace] 100 mg PO BID@0800,1700 12/20/21 11/27/23 History Gabapentin [Neurontin] 100 mg PO TID@0800,1400,2100 12/20/21 11/27/23 History Pantoprazole [Protonix] 40 mg PO DAILY@0800 12/20/21 11/27/23 History metFORMIN HCL 500 mg PO BID@0800,1700 12/20/21 11/27/23 History Baclofen 10 mg PO QID@08,12,17,21 10/25/23 11/27/23 History Dicyclomine [Bentyl] 10 mg PO TID@0800,1200,1700 10/25/23 11/27/23 History Loperamide [Imodium] 4 mg PO QID@08,12,17,10/25/23 11/27/23 History Mirtazapine 30 mg PO HS@2100 10/25/23 11/27/23 History Sertraline [Zoloft] 100 mg PO DAILY@0800 10/25/23 11/27/23 History Acetaminophen [Tylenol] 650 mg PO Q4H PRN 11/27/23 11/27/23 History Apixaban [Eliquis] 5 mg PO BID@0800,1700 11/27/23 11/27/23 History INSULIN LISPRO (HumaLOG) [humaLOG] See Protocol SQ TID PRN 11/27/23 11/27/23 History Ondansetron [Zofran] 4 mg PO TID@0800,1400,2100 11/27/23 11/27/23 History carvediloL [Coreg] 6.25 mg PO BID@0800,1700 11/27/23 11/27/23 History droNABinol [Marinol] 2.5 mg PO BID@0800,1700 11/27/23 11/27/23 History lisinopriL [Zestril] 5 mg PO DAILY@1200 11/27/23 11/27/23 History Allergies Allergy/AdvReac Type Severity Reaction Status Date / Time No Known Allergies Allergy Verified 11/27/23 16:14 Physical Exam Osteopathic Statement: *. No significant issues noted on an osteopathic structural exam other than those noted in the History and Physical/Consult. Vitals: Vital Signs Temp Pulse Pulse Pulse Resp BP BP 11/28/23 01:36 97.8 F 72 16 109/69 11/27/23 18:46 97.5 F L 82 16 115/80 11/27/23 18:02 89 16 115/85 11/27/23 16:00 80 16 125/91 11/27/23 15:00 80 16 112/88 11/27/23 14:43 112 H 20 114/83 11/27/23 12:02 97.3 F L 103 H 18 120/85 Pulse Ox 11/28/23 01:36 98 11/27/23 18:46 99 11/27/23 18:02 98 11/27/23 16:00 98 11/27/23 15:00 99 11/27/23 14:43 98 11/27/23 12:02 99 Intake and Output 11/27/23 11/27/23 11/28/23 14:59 22:59 06:59 Output Total 325 325 Balance -325 -325 Output: Urine 275 200 Stool 50 125 Other: Voiding Method Urinal Weight 57.606 kg 57.606 kg General: [Patient awake, alert and oriented times 3. Patient in no acute d istress.] HEENT: [PERRL. EOMI. No pharyngeal erythema or exudate.] Neck: [No adenopathy.] Cardiac: [Heart regular in rate and rhythm. No S3. No S4. No clicks, rubs. No murmur.] Lungs: [Clear to auscultation bilaterally.] Abdomen: [No mass. No organomegaly. Bowel sounds presnt and normoactive in all 4 quadrants.] ostomy site noted Extremes: [No edema no cyanosis no claudication normal pulses] : normal male genitalia Musculoskeletal: [No joint erythema, edema or tenderness.] Skin: [No rash.] Neurologic: [No lateralizing deficits. CN II - XII grossly intact.] Lymphatic: [No adenopathy.] Results CBC & Chem 7: 11/27/23 14:03 11/27/23 14:03 Labs: Abnormal Lab Results - Last 24 Hours (Table) 11/27/23 11/27/23 11/27/23 Range/Units 14:03 14:03 14:03 RBC 4.27 L (4.30-5.90) m/uL Hgb 12.3 L D (13.0-17.5) gm/dL Hct 37.9 L (39.0-53.0) % APTT (22.0-30.0) sec Carbon Dioxide 13 L (22-30) mmol/L BUN 74 H (9-20) mg/dL Creatinine 1.85 H (0.66-1.25) mg/dL Glucose 139 H (74-99) mg/dL Calcium 11.1 H (8.4-10.2) mg/dL Phosphorus 5.0 H (2.5-4.5) mg/dL Troponin I 0.057 H* (0.000-0.034) ng/mL Total Protein 8.3 H (6.3-8.2) g/dL Urine Protein (Negative) Urine Blood (Negative) Ur Leukocyte Esterase (Negative) Urine RBC (0-5) /hpf Calcium Oxalate Crystal (None) /hpf Urine Mucus (None) /hpf 11/27/23 11/27/23 Range/Units 15:30 19:56 RBC (4.30-5.90) m/uL Hgb (13.0-17.5) gm/dL Hct (39.0-53.0) % APTT 20.7 L (22.0-30.0) sec Carbon Dioxide (22-30) mmol/L BUN (9-20) mg/dL Creatinine (0.66-1.25) mg/dL Glucose (74-99) mg/dL Calcium (8.4-10.2) mg/dL Phosphorus (2.5-4.5) mg/dL Troponin I (0.000-0.034) ng/mL Total Protein (6.3-8.2) g/dL Urine Protein 1+ H (Negative) Urine Blood Moderate H (Negative) Ur Leukocyte Esterase Trace H (Negative) Urine RBC >182 H (0-5) /hpf Calcium Oxalate Crystal Rare H (None) /hpf Urine Mucus Rare H (None) /hpf Thrombosis Risk Factor Assmnt - DVT/VTE Prophylaxis DVT/VTE Prophylaxis: Pharmacologic Prophylaxis ordered - Choose All That Apply Each Risk Factor Represents 2 Points: Age 61-74 years Thrombosis Risk Factor Assessment Total Risk Factor Score: 2 Thrombosis Risk Factor Assessment Level: Low Risk Assessment and Plan (1) LURDES (acute kidney injury) Narrative/Plan: significant improvement from previous GFR 45 Current Visit: Yes Status: Acute Code(s): N17.9 - ACUTE KIDNEY FAILURE, UNSPECIFIED SNOMED Code(s): 81742837 (2) Dehydration Current Visit: Yes Status: Acute Code(s): E86.0 - DEHYDRATION SNOMED Code( s): 76946780 (3) Nausea and vomiting Current Visit: Yes Status: Acute Code(s): R11.2 - NAUSEA WITH VOMITING, UNSPECIFIED SNOMED Code(s): 99010486 (4) Abdominal pain Current Visit: No Status: Acute Code(s): R10.9 - UNSPECIFIED ABDOMINAL PAIN SNOMED Code(s): 11966973 (5) Cerebrovascular accident (CVA) Current Visit: No Status: Acute Code(s): I63.9 - CEREBRAL INFARCTION, UNSPECIFIED SNOMED Code(s): 650600899 (6) Weakness Current Visit: No Status: Acute Code(s): R53.1 - WEAKNESS SNOMED Code(s): 22071136 (7) Elevated troponin Current Visit: Yes Status: Acute Code(s): R79.89 - OTHER SPECIFIED ABNORMAL FINDINGS OF BLOOD CHEMISTRY SNOMED Code(s): 058532911 Plan: admitted to the hospital consult Dr. Twyla Wilkes. surgery Consult cardiology Review all current diagnostic studies Further orders to follow Time with Patient: Greater than 30
[2023-11-28] MEDS: metFORMIN 500 MG TAB PO SCH (08:00)
--- NOTE | 2023-11-28 08:09 | XR ---
EXAMINATION TYPE: XR abdomen 2V DATE OF EXAM: 11/28/2023 HISTORY: Pain. Technique: 2 views of the abdomen are submitted. Comparison: None. Findings: There is no convincing evidence of pneumoperitoneum. The Bowel gas pattern is nonspecific and nonobstructive. No sizable air-fluid levels are seen. No mass effects are noted. No renal calcifications are identified. IMPRESSION: 1. Nonspecific nonobstructive bowel gas pattern
[2023-11-28 08:32] LABS: African American GFR (CKD) 70 (>60 ml/min/1.73 sqM); Anion Gap 13 mmol/L; Blood Urea Nitrogen 59 mg/dL (9-20); Calcium 9.9 mg/dL (8.4-10.2); Carbon Dioxide 16 mmol/L (22-30); Chloride 111 mmol/L (98-107); Glucose 84 mg/dL (74-99); Non-African American GFR(CKD) 61 (>60 ml/min/1.73 sqM); Potassium 3.6 mmol/L (3.5-5.1); Sodium 140 mmol/L (137-145)
--- NOTE | 2023-11-28 08:42 | P.GSCN ---
History of Present Illness Consult date: 11/27/23 History of present illness: CHIEF COMPLAINT: Intractable nausea and vomiting HISTORY OF PRESENT ILLNESS: The patient is a 63 year old male with complicated surgical history including massive GI bleed over 2 to 3 months ago from diverticulosis resulting in total colectomy and ileostomy. Additional history is obtained from his at bedside. From his protracted recovery, he has lost 100 pounds to date. In the last over 1 week, he is unable to tolerated oral intake. He denies dysphagia. He reports nausea. He has high output ileostomy. He denies further bleeding. Prior hemoglobin was less than 9.0 at his recent hospitalization. He comes in with hemoconcentrated Hgb over 12.0 with elevated creatinine. General surgery is consulted for intractable nausea and vomiting. At the time of assessment, he denies moderated abdominal pain. He has a alarm security or surveillance monitor presently. He is taking zofran without improvement. PAST MEDICAL HISTORY: See list and reviewed PAST SURGICAL HISTORY: See list and reviewed MEDICATIONS: See list and reviewed ALLERGIES: See list and reviewed SOCIAL HISTORY: See list and reviewed FAMILY HISTORY: See list and reviewed REVIEW OF ORGAN SYSTEMS: CONSTITUTIONAL: No fevers or chills. Unintentional weight loss 100 pounds in 3 to 4 months. EYES: Denies any trouble with vision. No glasses. HEENT: No difficulties with hearing. No nosebleeds. No difficulty swallowing. RESPIRATORY: Denies pneumonia. Denies any troubles with breathing or dyspnea on exertion. CARDIOVASCULAR: History of cardiac arrest x 7 in hospitalization Aug/Sep at [facility]. Has hypertensive heart disease. Has alarm security or surveillance monitor. GASTROINTESTINAL: History of GI bleed over 10 units of blood transfusion. Has gastroesophageal reflux disease. Has ileostomy with moderate output. GENITOURINARY: Denies any blood in urine or increased urinary frequency. NEUROLOGICAL: Has numbness or tingling along the distal extremities. No seizure disorders or headaches. History of stroke with residual right sided weakness. MUSCULOSKELETAL: Denies any back pain, stiffness or joint arthritis. SKIN: No current skin cancer. No rash. PSYCHIATRIC: Has depression. No suicidal thoughts. ENDOCRINE: Denies current thyroid disorders. 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 HEME/LYMPHATIC: Denies any lumps and bumps around the neck. No recent deep venous thrombosis. On blood thinner. ALLERGY/IMMUNOLOGY: No immunoglobulin therapy. No immune deficiencies. BREAST: Denies current breast lumps, pain or nipple discharge. PHYSICAL EXAM: VITALS: Reviewed CONSTITUTIONAL: Well developed and in no acute distress. Has muscle wasting. EYES: Conjuctivae without sclera icterus. Extraocular movements grossly intact . HEAD, EARS, NOSE, THROAT: Moist buccal mucosa. Head is atraumatic, normocephalic. Hears conversational speech. No nasal drainage. NECK: Supple. No JV distention. No thyroidomegaly. RESPIRATORY: Non-labored respirations and equal bilateral excursions. No gross wheezes. CARDIOVASCULAR: Palpable 2+ radial pulses. ABDOMEN: No peritonitis. Ileostomy present. LYMPH: No neck lymphadenopathy. MUSCULOSKELETAL: No clubbing cyanosis or edema SKIN: Warm and well perfused with good skin turgor. NEUROLOGIC: Cranial nerves II through XII grossly intact. No focal or lateralizing signs. PSYCH: Appropriate affect. Alert and oriented to person, place and time. Displays appropriate insight. CLINCAL LABS: Reviewed. Hgb elevated from 8.6 to 12.3. Creatinine elevated from 0.78 up t o 1.85 on current admission. Phosphorus elevated IMAGING: Independently reviewed. Last CT of the abdomen and pelvis 10/29/23 demonstrated no obstruction. This is my independent interpretation. Chest xray reviewed without pneumothorax. This is my independent interpretation. RADIOLOGY: Report reviewed chest xray without acute pulmonary process. RECORDS: previous old records reviewed from prior hospitalization from 10/29/23 admission. ASSESSMENT: 1. Intractable nausea and vomiting 2. Dehydration due to high output ileostomy 3. Hypertensive heart disease. 4. Acute renal failure due to acute tubular necrosis from dehydration, baseline 0.78 PLAN: 1. IV fluid hydration. Two liter bolus ordered. Recommend aggressive fluid hydration. 2. Nausea and vomiting aggravated by severe dehydration. May benefit from scopolamine patch. 3. Correction of electrolyte abnormalities. 4. Thiamine check as may also contribute to intractable nausea and vomiting including with ileostomy 5. Abdominal xray to access for bowel obstruction. 6. No acute surgical intervention needed at this time. ADVANCE DIRECTIVE: CODE status in chart. Thank you for this kind consultation. Past Medical History Past Medical History: CVA/TIA, Diabetes Mellitus, Hyperlipidemia, Hypertension, Sleep Apnea/CPAP/BIPAP Additional Past Medical History / Comment(s): uses CPAP, CEREBRAL BLEED 12/27/22 RIGHT SIDE WEAKNESS History of Any Multi-Drug Resistant Organisms: None Reported Past Surgical History: Heart Catheterization, Hernia Repair Additional Past Surgical History / Comment(s): COLONOSCOPY Past Anesthesia/Blood Transfusion Reactions: No Reported Reaction Past Psychological History: Depression Smoking Status: Former smoker Past Alcohol Use History: Occasional Additional Past Alcohol Use History / Comment(s): STARTED SMOKING AT AGE 21 QUIT SMOKING AT AGE 37 SMOKED LESS THAN 1 PACK A MONTH Past Drug Use History: None Reported - Past Family History Sister(s) Family Medical History: Cancer Additional Family Medical History / Comment(s): 1 SISTER FROM ESOPHAGEL CANCER. 1 SISTER HAD BREAST CANCER Medications and Allergies Home Medications Medication Instructions Recorded Confirmed Type Atorvastatin [Lipitor] 80 mg PO DAILY@0800 12/20/21 11/27/23 History Docusate [Colace] 100 mg PO BID@0800,1700 12/20/21 11/27/23 History Gabapentin [Neurontin] 100 mg PO TID@0800,1400,2100 12/20/21 11/27/23 History Pantoprazole [Protonix] 40 mg PO DAILY@0800 12/20/21 11/27/23 History metFORMIN HCL 500 mg PO BID@0800,1700 12/20/21 11/27/23 History Baclofen 10 mg PO QID@08,12,17,10/25/23 11/27/23 History Dicyclomine [Bentyl] 10 mg PO TID@0800,1200,1700 10/25/23 11/27/23 History Loperamide [Imodium] 4 mg PO QID@08,12,17,10/25/23 11/27/23 History Mirtazapine 30 mg PO HS@2100 10/25/23 11/27/23 History Sertraline [Zoloft] 100 mg PO DAILY@0800 10/25/23 11/27/23 History Acetaminophen [Tylenol] 650 mg PO Q4H PRN 11/27/23 11/27/23 History Apixaban [Eliquis] 5 mg PO BID@0800,1700 11/27/23 11/27/23 History INSULIN LISPRO (HumaLOG) [humaLOG] See Protocol SQ TID PRN 11/27/23 11/27/23 History Ondansetron [Zofran] 4 mg PO TID@0800,1400,2100 11/27/23 11/27/23 History carvediloL [Coreg] 6.25 mg PO BID@0800,1700 11/27/23 11/27/23 History droNABinol [Marinol] 2.5 mg PO BID@0800,1700 11/27/23 11/27/23 History lisinopriL [Zestril] 5 mg PO DAILY@1200 11/27/23 11/27/23 History Allergies Allergy/AdvReac Type Severity Reaction Status Date / Time No Known Allergies Allergy Verified 11/27/23 16:14 Surgical - Exam Vital Signs Temp Pulse Resp BP Pulse Ox 97.3 F L 103 H 18 120/85 99 11/27/23 12:02 11/27/23 12:02 11/27/23 12:02 11/27/23 12:02 11/27/23 12:02 Results - Labs 11/27/23 14:03 11/27/23 14:03 Abnormal Lab Results - Last 24 Hours (Table) 11/27/23 11/27/23 11/27/23 Range/Units 14:03 14:03 14:03 RBC 4.27 L (4.30-5.90) m/uL Hgb 12.3 L D (13.0-17.5) gm/dL Hct 37.9 L (39.0-53.0) % APTT (22.0-30.0) sec Carbon Dioxide 13 L (22-30) mmol/L BUN 74 H (9-20) mg/dL Creatinine 1.85 H (0.66-1.25) mg/dL Glucose 139 H (74-99) mg/dL Calcium 11.1 H (8.4-10.2) mg/dL Phosphorus 5.0 H (2.5-4.5) mg/dL Troponin I 0.057 H* (0.000-0.034) ng/mL Total Protein 8.3 H (6.3-8.2) g/dL Urine Protein (Negative) Urine Blood (Negative) Ur Leukocyte Esterase (Negative) Urine RBC (0-5) /hpf Calcium Oxalate Crystal (None) /hpf Urine Mucus (None) /hpf 11/27/23 11/27/23 Range/Units 15:30 19:56 RBC (4.30-5.90) m/uL Hgb (13.0-17.5) gm/dL Hct (39.0-53.0) % APTT 20.7 L (22.0-30.0) sec Carbon Dioxide (22-30) mmol/L BUN (9-20) mg/dL Creatinine (0.66-1.25) mg/dL Glucose (74-99) mg/dL Calcium (8.4-10.2) mg/dL Phosphorus (2.5-4.5) mg/dL Troponin I (0.000-0.034) ng/mL Total Protein (6.3-8.2) g/dL Urine Protein 1+ H (Negative) Urine Blood Moderate H (Negative) Ur Leukocyte Esterase Trace H (Negative) Urine RBC >182 H (0-5) /hpf Calcium Oxalate Crystal Rare H (None) /hpf Urine Mucus Rare H (None) /hpf Diabetes panel 11/27/23 Range/Units 14:03 Sodium 138 (137-145) mmol/L Potassium 4.1 (3.5-5.1) mmol/L Chloride 106 (98-107) mmol/L Carbon Dioxide 13 L (22-30) mmol/L BUN 74 H (9-20) mg/dL Creatinine 1.85 H (0.66-1.25) mg/dL Glucose 139 H (74-99) mg/dL Calcium 11.1 H (8.4-10.2) mg/dL AST 24 (17-59) U/L ALT 23 (4-49) U/L Alkaline Phosphatase 75 (38-126) U/L Total Protein 8.3 H (6.3-8.2) g/dL Albumin 5.0 (3.5-5.0) g/dL Calcium panel 11/27/23 Range/Units 14:03 Calcium 11.1 H (8.4-10.2) mg/dL Phosphorus 5.0 H (2.5-4.5) mg/dL Albumin 5.0 (3.5-5.0) g/dL Pituitary panel 11/27/23 Range/Units 14:03 Sodium 138 (137-145) mmol/L Potassium 4.1 (3.5-5.1) mmol/L Chloride 106 (98-107) mmol/L Carbon Dioxide 13 L (22-30) mmol/L BUN 74 H (9-20) mg/dL Creatinine 1.85 H (0.66-1.25) mg/dL Glucose 139 H (74-99) mg/dL Calcium 11.1 H (8.4-10.2) mg/dL Adrenal panel 11/27/23 Range/Units 14:03 Sodium 138 (137-145) mmol/L Potassium 4.1 (3.5-5.1) mmol/L Chloride 106 (98-107) mmol/L Carbon Dioxide 13 L (22-30) mmol/L BUN 74 H (9-20) mg/dL Creatinine 1.85 H (0.66-1.25) mg/dL Glucose 139 H (74-99) mg/dL Calcium 11.1 H (8.4-10.2) mg/dL Total Bilirubin 0.5 (0.2-1.3) mg/dL AST 24 (17-59) U/L ALT 23 (4-49) U/L Alkaline Phosphatase 75 (38-126) U/L Total Protein 8.3 H (6.3-8.2) g/dL Albumin 5.0 (3.5-5.0) g/dL
[2023-11-28 09:45] LABS: Basophils # (A) 0.1 k/uL (0-0.2); Basophils % (A) 1 %; Eosinophils # (A) 0.1 k/uL (0-0.7); Eosinophils % (A) 1 %; HCT 31.5 % (39.0-53.0); Lymphocytes # (A) 1.5 k/uL (1.0-4.8); Lymphocytes % (A) 21 %; MCH 28.8 pg (25.0-35.0); MCHC 31.9 g/dL (31.0-37.0); MCV 90.4 fL (80.0-100.0); Mean Platelet Volume 9.2; Monocytes # (A) 0.4 k/uL (0-1.0); Monocytes % (A) 6 %; Neutrophils # (A) 5.2 k/uL (1.3-7.7); Neutrophils % (A) 70 %; Platelet Count 202 k/uL (150-450); RBC 3.48 m/uL (4.30-5.90); RDW 14.7 % (11.5-15.5); WBC 7.4 k/uL (3.8-10.6)
--- NOTE | 2023-11-28 09:45 | CONS ---
CONSULTATION HISTORY OF PRESENT ILLNESS: Dillan is a 63-year-old gentleman with history of cardiomyopathy, status post LifeVest, diabetes, hypertension, dyslipidemia, sleep apnea on BiPAP machine, who had a recent colon resection, comes into hospital with nausea, vomiting, and we have been consulted because of mild elevation in troponin. Troponin elevation seems to be related to the renal insufficiency with significantly elevated BUN and creatinine, which are improving. He does not have any chest pain or any other new cardiac symptoms. PAST MEDICAL HISTORY: Significant for cardiomyopathy, chronic systolic heart failure, diabetes, atrial fibrillation, and dyslipidemia. MEDICATIONS: Medications at home include; 1. Insulin. 2. Tylenol. 3. Zofran. 4. Neurontin. 5. Metformin. 6. Coreg. 7. Colace. 8. Zestril. 9. Zoloft. 10.Eliquis. 11.Lipitor. FAMILY HISTORY: Negative for premature coronary artery disease. SOCIAL HISTORY: Negative for current smoking, EtOH abuse, or drug abuse. REVIEW OF SYSTEMS: 14 out of 14 review of systems has been performed, pertinents are as documented. PHYSICAL EXAMINATION: GENERAL: He is comfortable at rest. VITAL SIGNS: Stable. CHEST: Reveals good air entry bilaterally. HEART: Reveals first and second heart sounds. No gallop. Has a systolic murmur at the apex. ABDOMEN: Soft. EXTREMITIES: Did not reveal any edema. Peripheral pulses are palpable. DIAGNOSTIC STUDIES: The patient had a recent TOMASA that showed severe LV systolic dysfunction and he has a LifeVest on. He had a cardiac catheterization in 2018 that revealed normal coronary artery. ASSESSMENT: 1. Elevated troponin. 2. Cardiomyopathy, status post automatic implantable cardioverter-defibrillator and status post colon resection. 3. Nausea, vomiting. 4. History of atrial fibrillation. PLAN: The patient will continue current medications. Elevated troponin is related to prerenal azotemia. MMODL / IJN: [id number] /
[2023-11-28] MEDS: ATORVASTATIN 80 MG TAB PO SCH (10:18)
[2023-11-28] MEDS: carvediloL 6.25 MG TAB PO SCH (10:18)
[2023-11-28] MEDS: APIXABAN 2.5 MG TABLET PO SCH (10:18)
[2023-11-28] MEDS: SERTRALINE 100 MG TAB PO SCH (10:19)
[2023-11-28] MEDS: PANTOPRAZOLE 40 MG/10 ML VIAL IVP SCH (10:20)
[2023-11-28] MEDS: GABAPENTIN 100 MG CAP PO SCH (10:20)
[2023-11-28] MEDS: THIAMINE 100 MG in SODIUM CHLORIDE 0.9% 50 ML IVPB SCH (10:20)
[2023-11-28 11:27] LABS: Magnesium 1.8 mg/dL (1.6-2.3); Phosphorus 4.6 mg/dL (2.5-4.5)
[2023-11-28 12:19] LABS: Glucose,Whole Blood 94 mg/dL (70-110)
[2023-11-28 14:01] VITALS: BMI 17.6
[2023-11-28] MEDS: lisinopriL 5 MG TAB PO SCH (14:27)
[2023-11-28 16:59] LABS: Glucose,Whole Blood 125 mg/dL (70-110)
--- NOTE | 2023-11-28 19:49 | P.PN ---
Subjective patient seen and evaluated bedside. Patient denies abdominal pain nausea vomiting at this time. Objective - Vital Signs Vital signs: Vital Signs Temp 97.8 F 11/28/23 15:00 Pulse 75 11/28/23 15:00 Resp 14 11/28/23 15:00 BP 109/76 11/28/23 15:00 Pulse Ox 100 11/28/23 15:00 FiO2 Intake & Output 11/28/23 11/28/23 11/29/23 06:59 18:59 06:59 Intake Total 118 Output Total 600 475 Balance -600 -357 Weight 57.606 kg 57.606 kg Intake: Oral 118 Output: Urine 475 275 Stool 125 200 Other: Voiding Method Urinal Urinal - Exam general no acute distress alert and oriented Cardiovascular regular rate rhythm Pulmonary nonlabored breathing Abdomen soft, nontender, nondistended, no guarding rebound tenderness, ostomy pink patent and producing - Labs CBC & Chem 7: 11/28/23 07:03 11/28/23 07:03 Labs: Abnormal Lab Results - Last 24 Hours (Table) 11/27/23 11/28/23 11/28/23 Range/Units 19:56 07:03 07:03 RBC 3.48 L (4.30-5.90) m/uL Hgb 10.0 L D (13.0-17.5) gm/dL Hct 31.5 L (39.0-53.0) % Chloride 111 H (98-107) mmol/L Carbon Dioxide 16 L (22-30) mmol/L BUN 59 H (9-20) mg/dL Creatinine 1.27 H (0.66-1.25) mg/dL POC Glucose (mg/dL) (70-110) mg/dL Phosphorus (2.5-4.5) mg/dL Urine Protein 1+ H (Negative) Urine Blood Moderate H (Negative) Ur Leukocyte Esterase Trace H (Negative) Urine RBC >182 H (0-5) /hpf Calcium Oxalate Crystal Rare H (None) /hpf Urine Mucus Rare H (None) /hpf 11/28/23 11/28/23 Range/Units 07:03 16:57 RBC (4.30-5.90) m/uL Hgb (13.0-17.5) gm/dL Hct (39.0-53.0) % Chloride (98-107) mmol/L Carbon Dioxide (22-30) mmol/L BUN (9-20) mg/dL Creatinine (0.66-1.25) mg/dL POC Glucose (mg/dL) 125 H (70-110) mg/dL Phosphorus 4.6 H (2.5-4.5) mg/dL Urine Protein (Negative) Urine Blood (Negative) Ur Leukocyte Esterase (Negative) Urine RBC (0-5) /hpf Calcium Oxalate Crystal (None) /hpf Urine Mucus (None) /hpf Assessment and Plan Assessment: 63-year-old male with colostomy and intractable nausea vomiting, Nausea and vomiting resolved No bleeding from colostomy Continue gentle hydration Attempt with low fiber diet Time with Patient: Greater than 30
[2023-11-28 20:19] LABS: Glucose,Whole Blood 139 mg/dL (70-110)
[2023-11-29 06:13] LABS: Glucose,Whole Blood 79 mg/dL (70-110)
--- NOTE | 2023-11-29 10:33 | PN ---
PROGRESS NOTE SUBJECTIVE: Dillan is a 63-year-old gentleman with cardiomyopathy, chronic systolic heart failure, history of LifeVest, who presented to hospital primarily with nausea, vomiting, and we were consulted because of mildly elevated troponins. The patient is doing better today. Nausea and vomiting are improving. MEDICATIONS: The patient is on, 1. Eliquis 2.5 b.i.d. 2. Coreg 6.25 b.i.d. 3. Zestril. OBJECTIVE: GENERAL: Comfortable at rest. VITAL SIGNS: Stable. NECK: There is no jugular venous distention. Carotid upstroke is normal. There is no bruit. CHEST: Reveals good air entry bilaterally. HEART: Reveals first and second heart sounds and a systolic murmur at the apex. ABDOMEN: Soft. EXTREMITIES: Did not reveal any edema. Peripheral pulses are felt. LABS: There are no labs today. ASSESSMENT: 1. Cardiomyopathy, status post LifeVest. 2. Elevated troponin secondary to the renal insufficiency. PLAN: Continue current cardiac medications including Eliquis, Lipitor, Coreg, Zestril. Stable from cardiac standpoint, to be discharged home. MMODL / IJN: [id number] /
--- NOTE | 2023-11-29 11:18 | P.PN ---
Subjective Progress Note Date: 11/29/23 Principal diagnosis: Nausea and vomiting Patient doing better at this time. The nausea that he presented with has mostly resolved. He had some left-sided pain that he says also has gone. Ostomy is loose. No blood. Labs noted. Objective - Vital Signs Vital signs: Vital Signs Temp 97.7 F 11/29/23 07:00 Pulse 62 11/29/23 07:00 Resp 18 11/29/23 07:00 BP 118/78 11/29/23 07:00 Pulse Ox 100 11/29/23 07:00 FiO2 Intake & Output 11/28/23 11/29/23 11/29/23 18:59 06:59 18:59 Intake Total 118 Output Total 475 600 175 Balance -357 -600 -175 Weight 57.606 kg Intake: Oral 118 Output: Urine 275 400 Stool 200 200 175 Other: Voiding Method Urinal Urinal - Exam Abdomen: Soft, nontender, nondistended, ileostomy pink - Labs CBC & Chem 7: 11/28/23 07:03 11/28/23 07:03 Labs: Abnormal Lab Results - Last 24 Hours (Table) 11/28/23 11/28/23 11/28/23 Range/Units 07:03 16:57 20:18 POC Glucose (mg/dL) 125 H 139 H (70-110) mg/dL Phosphorus 4.6 H (2.5-4.5) mg/dL Assessment and Plan (1) Nausea and vomiting Narrative/Plan: 63-year-old male with ileostomy for recent GI bleed. Patient with high output and dehydration thought to be related to that. Continue low fiber diet. Monitor ostomy output. Ambulate. Current Visit: Yes Status: Acute Code(s): R11.2 - NAUSEA WITH VOMITING, UNSPECIFIED SNOMED Code(s): 49732442
[2023-11-29 12:27] LABS: Glucose,Whole Blood 130 mg/dL (70-110)
--- NOTE | 2023-11-29 12:31 | P.PN ---
Subjective Progress Note Date: 11/29/23 Principal diagnosis: abdominal pain nausea vomiting patient is awake oriented essentially stable patient is afebrile symptoms have significantly improved, secondary to rehydration Objective - Vital Signs Vital signs: Vital Signs Temp 97.7 F 11/29/23 07:00 Pulse 62 11/29/23 07:00 Resp 18 11/29/23 07:00 BP 118/78 11/29/23 07:00 Pulse Ox 100 11/29/23 07:00 FiO2 Intake & Output 11/28/23 11/29/23 11/29/23 18:59 06:59 18:59 Intake Total 118 Output Total 475 600 175 Balance -357 -600 -175 Weight 57.606 kg Intake: Oral 118 Output: Urine 275 400 Stool 200 200 175 Other: Voiding Method Urinal Urinal - Exam General: [Patient awake, alert and oriented times 3. Patient in no acute distress.] HEENT: [PERRL. EOMI. No pharyngeal erythema or exudate.] Neck: [No adenopathy.] Cardiac: [Heart regular in rate and rhythm. No S3. No S4. No clicks, rubs. No murmur.] Lungs: [Clear to auscultation bilaterally.] Abdomen: [No mass. No organomegaly. Bowel sounds presnt and normoactive in all 4 quadrants.] ostomy noted Extremes: [No edema no cyanosis no claudication normal pulses] : normal male genitalia Musculoskeletal: [No joint erythema, edema or tenderness.] Skin: [No rash.] Neurologic: [No lateralizing deficits. CN II - XII grossly intact.] Lymphatic: [No adenopathy.] - Labs CBC & Chem 7: 11/28/23 07:03 11/28/23 07:03 Labs: Abnormal Lab Results - Last 24 Hours (Table) 11/28/23 11/28/23 Range/Units 16:57 20:18 POC Glucose (mg/dL) 125 H 139 H (70-110) mg/dL Assessment and Plan (1) LURDES (acute kidney injury) Narrative/Plan: significant improvement from previous GFR 70 Current Visit: Yes Status: Acute Code(s): N17.9 - ACUTE KIDNEY FAILURE, UNSPECIFIED SNOMED Code(s): 11118578 (2) Dehydration Narrative/Plan: rehydration performed, nausea significantly improved Current Visit: Yes Status: Acute Code(s): E86.0 - DEHYDRATION SNOMED Code(s): 62686327 (3) Nausea and vomiting Narrative/Plan: resolved Current Visit: Yes Status: Acute Code(s): R11.2 - NAUSEA WITH VOMITING, UNSPECIFIED SNOMED Code(s): 98540446 (4) Abdominal pain Narrative/Plan: significant improvement Current Visit: No Status: Acute Code(s): R10.9 - UNSPECIFIED ABDOMINAL PAIN SNOMED Code(s): 63464609 (5) Cerebrovascular accident (CVA) Current Visit: No Status: Acute Code(s): I63.9 - CEREBRAL INFARCTION, UNSPECIFIED SNOMED Code(s): 376991241 (6) Weakness Current Visit: No Status: Acute Code(s): R53.1 - WEAKNESS SNOMED Code(s): 76143752 (7) Elevated troponin Current Visit: Yes Status: Acute Code(s): R79.89 - OTHER SPECIFIED ABNORMAL FINDINGS OF BLOOD CHEMISTRY SNOMED Code(s): 716268571 Plan: admitted to the hospital consult Dr. Wakefield Gen. surgery Consult cardiology nausea and vomiting resolved, secondary to aggressive fluid resuscitation Further orders to follow Time with Patient: Greater than 30
[2023-11-29] MEDS: droNABinol 2.5 MG CAP PO SCH (15:38)
[2023-11-29 17:23] LABS: Glucose,Whole Blood 100 mg/dL (70-110)
[2023-11-29 20:55] LABS: Glucose,Whole Blood 127 mg/dL (70-110)
[2023-11-30 06:07] LABS: Glucose,Whole Blood 82 mg/dL (70-110)
[2023-11-30 08:02] VITALS: RESP 16
[2023-11-30 08:50] LABS: Basophils # (A) 0.03 X 10*3/uL (0.00-0.10); Basophils % (A) 0.5 %; Eosinophils # (A) 0.18 X 10*3/uL (0.04-0.35); Eosinophils % (A) 2.8 %; HGB 8.4 g/dL (13.0-17.0); Lymphocytes # (A) 1.52 X 10*3/uL (0.90-5.00); Lymphocytes % (A) 23.9 %; MCH 28.6 pg (27.0-32.0); MCHC 32.3 g/dL (32.0-37.0); MCV 88.4 FL (80.0-97.0); Mean Platelet Volume 11.4 FL (9.5-12.2); Monocytes # (A) 0.47 X 10*3/uL (0.20-1.00); Monocytes % (A) 7.4 %; NRBC Per 100 WBC 0 X 10*3/uL (0.00-0.01); Neutrophils # (A) 4.16 X 10*3/uL (1.80-7.70); Neutrophils % (A) 65.2 %; Platelet Count 162 X 10*3/uL (140-440); RBC 2.94 X 10*6/uL (4.40-5.60); RDW 13.9 % (11.5-14.5); WBC 6.37 X 10*3/uL (4.50-10.00)
[2023-11-30 09:02] LABS: BUN/Creat Ratio 29.11 Ratio (12.00-20.00); Blood Urea Nitrogen 26.2 mg/dL (9.0-27.0); Calcium 9.3 mg/dL (8.7-10.3); Carbon Dioxide 18.8 mmol/L (21.6-31.8); Chloride 113 mmol/L (96-109); Glucose 81 mg/dL (70-110); Potassium 3.3 mmol/L (3.5-5.5); Sodium 142 mmol/L (135-145)
[2023-11-30] MEDS ORDERED: Potassium Replacement Protocol 1 EACH MISC MISCELLANE PRN (10:15)
[2023-11-30] MEDS: POTASSIUM CHLORIDE 10 MEQ in WATER FOR INJECTION 1 100ML.BAG IVPB SCH (10:53)
[2023-11-30] MEDS ORDERED: POTASSIUM CHLORIDE ER 20 MEQ TAB.ER PO STA (11:16)
[2023-11-30 11:33] LABS: Glucose,Whole Blood 117 mg/dL (70-110)
[2023-11-30] MEDS: POTASSIUM BICARBONATE/CIT AC 20 MEQ TABLET.EFF PO ONE (12:21)
--- NOTE | 2023-11-30 12:43 | P.DS ---
Providers Date of admission: 11/27/23 16:53 Expected date of discharge: 11/30/23 Attending physician: Berny Carranza Consults: 11/27/23 16:52 Consult Physician Urgent Consulting Provider: Maria G Gibson Consult Reason/Comments: intractable nausea vomiting Do you want consulting provider notified?: Yes 11/28/23 06:34 Consult Physician Routine Consulting Provider: Ham Bob Consult Reason/Comments: elevated troponin Do you want consulting provider notified?: Yes Primary care physician: [facility] Course: Final Diagnoses: (1) LURDES (acute kidney injury) Narrative/Plan: significant improvement from previous GFR 70 Current Visit: Yes Status: Acute Code(s): N17.9 - ACUTE KIDNEY FAILURE, UNSPECIFIED SNOMED Code(s): 63390274 (2) Dehydration secondary to high ostomy output and suspected dehydration Narrative/Plan: rehydration performed, nausea significantly improved Current Visit: Yes Status: Acute Code(s): E86.0 - DEHYDRATION SNOMED Code(s): 72330462 (3) Nausea and vomiting Narrative/Plan: resolved Current Visit: Yes Status: Acute Code(s): R11.2 - NAUSEA WITH VOMITING, UNSPECIFIED SNOMED Code(s): 72799326 (4) Abdominal pain Narrative/Plan: significant improvement Current Visit: No Status: Acute Code(s): R10.9 - UNSPECIFIED ABDOMINAL PAIN SNOMED Code(s): 09082904 (5) Cerebrovascular accident (CVA) Current Visit: No Status: Acute Code(s): I63.9 - CEREBRAL INFARCTION, UNSPECIFIED SNOMED Code(s): 385225624 (6) Weakness Current Visit: No Status: Acute Code(s): R53.1 - WEAKNESS SNOMED Code(s): 60466342 (7) Elevated troponin secondary to renal insufficiency as per cardiology evaluation. Current Visit: Yes Status: Acute Code(s): R79.89 - OTHER SPECIFIED ABNORMAL FINDINGS OF BLOOD CHEMISTRY SNOMED Code(s): 125363732 (8) cardiomyopathy, status post [facility] Hospital course:patient was recently seen in the office for follow-up after long hospitalization, recent colon resection and having difficulty keeping anything down, not drinking not eating. Mild left lower quadrant pain. Normal output noted from his ostomy. No fevers no confusion patient is awake oriented essentially stable patient is afebrile symptoms have significantly improved, secondary to rehydration. Evaluated by cardiology and general surgery. Maintained on gentle IV fluid hydration. Marinol resumed ,tolerating low fiber diet with no further nausea vomiting. Ostomy loose without blood .abdomen soft, nontender, nondistended , ileostomy pink .creatinine 0.9. Cleared by cardiology for discharge. Patient will be discharged home today in a stable condition with guarded prognosis pending final DC clearance per general surgery. The impression and plan of care has been dictated as directed. : I performed a history and examination of this patient, discussed the same with the dictator. I agree with the dictator's note ,documented as a scribe. Any additional findings or plans will be noted. Patient Condition at Discharge: Stable Plan - Discharge Summary New Discharge Prescriptions: New Thiamine [Vitamin B-1] 100 mg PO DAILY #30 tablet Continue Pantoprazole [Protonix] 40 mg PO DAILY@0800 Dicyclomine [Bentyl] 10 mg PO TID@0800,1200,1700 Mirtazapine 30 mg PO HS@2100 Sertraline [Zoloft] 100 mg PO DAILY@0800 carvediloL [Coreg] 6.25 mg PO BID@0800,1700 lisinopriL [Zestril] 5 mg PO DAILY@1200 metFORMIN HCL 500 mg PO BID@0800,1700 Gabapentin [Neurontin] 100 mg PO TID@0800,1400,2100 Docusate [Colace] 100 mg PO BID@0800,1700 Atorvastatin [Lipitor] 80 mg PO DAILY@0800 Baclofen 10 mg PO QID@08,12,17,21 Loperamide [Imodium] 4 mg PO QID@08,12,17,21 Acetaminophen [Tylenol] 650 mg PO Q4H PRN PRN Reason: Fever And/ Or Pain Ondansetron [Zofran] 4 mg PO TID@0800,1400,2100 droNABinol [Marinol] 2.5 mg PO BID@0800,1700 Apixaban [Eliquis] 5 mg PO BID@0800,1700 INSULIN LISPRO (HumaLOG) [humaLOG] See Protocol SQ TID PRN PRN Reason: Blood Sugar - High Discharge Medication List Atorvastatin [Lipitor] 80 mg PO DAILY@0800 12/20/21 [History] Docusate [Colace] 100 mg PO BID@0800,1700 12/20/21 [History] Gabapentin [Neurontin] 100 mg PO TID@0800,1400,209912/20/21 [History] Pantoprazole [Protonix] 40 mg PO DAILY@0800 12/20/21 [History] metFORMIN HCL 500 mg PO BID@0800,17012/20/21 [History] Baclofen 10 mg PO QID@08,12,,10/25/23 [History] Dicyclomine [Bentyl] 10 mg PO TID@0800,1200,17010/25/23 [History] Loperamide [Imodium] 4 mg PO QID@08,12,,10/25/23 [History] Mirtazapine 30 mg PO HS@209910/25/23 [History] Sertraline [Zoloft] 100 mg PO DAILY@0800 10/25/23 [History] Acetaminophen [Tylenol] 650 mg PO Q4H PRN 11/27/23 [History] Apixaban [Eliquis] 5 mg PO BID@0800,17011/27/23 [History] INSULIN LISPRO (HumaLOG) [humaLOG] See Protocol SQ TID PRN 11/27/23 [History] Ondansetron [Zofran] 4 mg PO TID@0800,1400,209911/27/23 [History] carvediloL [Coreg] 6.25 mg PO BID@0800,1700 11/27/23 [History] droNABinol [Marinol] 2.5 mg PO BID@0800,1700 11/27/23 [History] lisinopriL [Zestril] 5 mg PO DAILY@1200 11/27/23 [History] Thiamine [Vitamin B-1] 100 mg PO DAILY #30 tablet 11/30/23 [Rx] Follow up Appointment(s)/Referral(s): Giorgi Martini MD [STAFF PHYSICIAN] - 12/14/23 9:00 am Berny Carranza Jr, DO [Primary Care Provider] - 3 Days [facility] [NON-STAFF] - 1 Week Ambulatory/Diagnostic Orders: Complete Blood Count w/diff [LAB.AMB] Time Frame: 3 Days, Location: None Selected Activity/Diet/Wound Care/Special Instructions: confirm cardiology F/U apt prior to visit
[2023-11-30 13:43] VITALS: BP 113/77; PULSE 68; TEMP 98.6
--- NOTE | 2023-11-30 16:20 | P.PN ---
Subjective Progress Note Date: 11/30/23 CHIEF COMPLAINT: Nausea and vomiting HISTORY OF PRESENT ILLNESS: Patient has had no further nausea or vomiting. He is tolerating a low fiber diet. His output from his ileostomy has returned to normal. He is afebrile. WBC 6.37 Hgb 8.4 platelets 162 sodium is 142 potassium 3.3 creatinine 0.9 PHYSICAL EXAM: VITAL SIGNS: Reviewed GENERAL: Well-developed in no acute distress. HEENT: No sclera icterus. Extraocular movements grossly intact. Moist buccal mucosa. Head is atraumatic, normocephalic. Hears conversational speech. No nasal drainage. NECK: Supple without lymphadenopathy. CHEST: Non-labored respirations and equal bilateral excursions. CARDIOVASCULAR: Palpable 2+ radial pulses. ABDOMEN: Soft. Nondistended. Nontender. Ileostomy with watery brown stool with small solid pieces MUSCULOSKELETAL: No clubbing or cyanosis. NEUROLOGIC: No focal or lateralizing signs. Cranial nerves II through XII grossly intact. PSYCH: Appropriate affect. Alert and oriented to person, place and time. SKIN: Well perfused. Good skin turgor. ASSESSMENT: 1. Nausea and vomiting 2. Dehydration 3. History of ileostomy PLAN: -Patient is tolerating diet. Ileostomy output has decreased. He denies any abdominal pain. He is stable for discharge. Physician Network Security Administrator note has been reviewed by physician. Signing provider agrees with the documented findings, assessment, and plan of care. Objective - Vital Signs Vital signs: Vital Signs Temp 98.6 F 11/30/23 13:25 Pulse 68 11/30/23 13:25 Resp 16 11/30/23 13:25 BP 113/77 11/30/23 13:25 Pulse Ox 99 11/30/23 13:25 FiO2 Intake & Output 11/29/23 11/30/23 11/30/23 18:59 06:59 18:59 Output Total 325 1400 300 Balance -325 -1400 -300 Output: Urine 300 100 Stool 325 1100 200 Other: Voiding Method Urinal Urinal Urinal # Voids 4 - Labs CBC & Chem 7: 11/30/23 05:39 11/30/23 05:39 Labs: Abnormal Lab Results - Last 24 Hours (Table) 11/29/23 11/30/23 11/30/23 Range/Units 20:53 05:39 05:39 RBC 2.94 L (4.40-5.60) X 10*6/uL Hgb 8.4 L (13.0-17.0) g/dL Hct 26.0 L (39.6-50.0) % Potassium 3.3 L (3.5-5.5) mmol/L Chloride 113 H (96-109) mmol/L Carbon Dioxide 18.8 L (21.6-31.8) mmol/L BUN/Creatinine Ratio 29.11 H (12.00-20.00) Ratio POC Glucose (mg/dL) 127 H (70-110) mg/dL 11/30/23 Range/Units 11:32 RBC (4.40-5.60) X 10*6/uL Hgb (13.0-17.0) g/dL Hct (39.6-50.0) % Potassium (3.5-5.5) mmol/L Chloride (96-109) mmol/L Carbon Dioxide (21.6-31.8) mmol/L BUN/Creatinine Ratio (12.00-20.00) Ratio POC Glucose (mg/dL) 117 H (70-110) mg/dL
== END 2023-11-30 15:42 | disposition home or self-care (01) ==
LOC: EC 12:00 → 6NMEDSUR 16:53
PROVIDERS: ADMIT Family Medicine; ATTEND Family Medicine
DX: N17.0 Acute kidney failure with tubular necrosis (principal); E86.0 Dehydration; R11.2 Nausea with vomiting, unspecified; R10.9 Unspecified abdominal pain; R53.1 Weakness; R79.89 Other specified abnormal findings of blood chemistry; E11.9 Type 2 diabetes mellitus without complications; G47.30 Sleep apnea, unspecified; E78.5 Hyperlipidemia, unspecified; F32.A Depression, unspecified; I11.0 Hypertensive heart disease with heart failure; I50.22 Chronic systolic (congestive) heart failure; I48.91 Unspecified atrial fibrillation; I42.9 Cardiomyopathy, unspecified; I69.351 Hemiplegia and hemiparesis following cerebral infarction affecting right dominant side; Z87.891 Personal history of nicotine dependence; Z90.49 Acquired absence of other specified parts of digestive tract; Z93.2 Ileostomy status; Z93.3 Colostomy status; Z95.810 Presence of automatic (implantable) cardiac defibrillator; Z79.84 Long term (current) use of oral hypoglycemic drugs; Z79.01 Long term (current) use of anticoagulants; Z79.4 Long term (current) use of insulin; Z79.899 Other long term (current) drug therapy; Z11.52 Encounter for screening for COVID-19
CPT/HCPCS: 96376 ×3; 96361 ×3; 96365; 96366 ×2; 96367; 96375 ×2; 99285; 36415; 93005; 83880; 80053; 80048 ×2; 83605; 83735 ×2; 84100 ×2; 84484; 85025 ×3; 85610; 85730; 81001; 83036; 87636; 71046; 74019; G0378 ×4; J3411 ×3; Q0167 ×2; J2405; J3480; J0131 ×2; C9113 ×3; 84425

== ENCOUNTER → 2023-12-15 | Outpatient (CLI) | payer MEDICAID ==
--- NOTE | 2023-12-16 12:48 | CA ---
Transthoracic Echo Report Name: Dillan Mosquera Age: 63 Gender: M : 1960 Exam Date: 12/15/2023 15:02 Exam Location: [place] [facility] Ht (in): Wt (lb): Ordering Physician: Giorgi Martini MD ([id number]) Attending/Referring Phys: Coat Check Attendant Jasmyne Ferguson RCS Procedure CPT: Indications: I51.7 Cardiomegaly Cardiac Hx: Technical Quality: Fair Contrast 1: Total Dose (mL): Contrast 2: Total Dose (mL): MEASUREMENTS (Male / Female) Normal Values 2D ECHO LV Diastolic Diameter PLAX 4.6 cm 4.2 - 5.9 / 3.9 - 5.3 cm LV Systolic Diameter PLAX 3.5 cm IVS Diastolic Thickness 0.8 cm 0.6 - 1.0 / 0.6 - 0.9 cm LVPW Diastolic Thickness 0.8 cm 0.6 - 1.0 / 0.6 - 0.9 cm LV Relative Wall Thickness 0.4 LVOT Diameter 2.7 cm LV Diastolic Volume MOD 4C 146.6 cm??? LV Systolic Volume MOD 4C 43.3 cm??? LV Ejection Fraction MOD 4C 70.5 % LV Diastolic Length 4C 9.7 cm LV Systolic Length 4C 7.8 cm Ascending Aorta Diameter 3.6 cm DOPPLER AV Peak Velocity 89.8 cm/s AV Peak Gradient 3.2 mmHg AV Mean Velocity 59.8 cm/s AV Mean Gradient 1.7 mmHg AV Velocity Time Integral 11.3 cm LVOT Peak Velocity 82.6 cm/s LVOT Peak Gradient 2.7 mmHg LVOT Velocity Time Integral 14.0 cm LVOT Stroke Volume 80.7 cm??? AV Area Cont Eq vti 7.1 cm??? AV Area Cont Eq pk 5.3 cm??? Mitral E Point Velocity 47.6 cm/s Mitral A Point Velocity 65.0 cm/s Mitral E to A Ratio 0.7 MV Deceleration Time 81.5 ms MV E' Velocity 7.9 cm/s Mitral E to MV E' Ratio 6.0 PV Peak Velocity 72.4 cm/s PV Peak Gradient 2.1 mmHg FINDINGS Left Ventricle Left ventricular ejection fraction is estimated at 50-55 %. Left ventricular cavity size normal. Left ventricular wall thickness normal. Right Ventricle Normal right ventricular size and function. Unable to estimate right ventricular systolic pressure. Right Atrium Normal right atrial size. Left Atrium Normal left atrial size. Aneurysmal atrial septum. Mitral Valve Mitral valve thickened. No evidence for mitral valve prolapse. No mitral stenosis. Trace mitral regurgitation. Aortic Valve Trileaflet aortic valve. No aortic stenosis. No aortic regurgitation. Tricuspid Valve Structurally normal tricuspid valve. No tricuspid stenosis. No tricuspid regurgitation. Pulmonic Valve Structurally normal pulmonic valve. No pulmonic stenosis. No pulmonic regurgitation. Pericardium No pericardial effusion. Aorta Aortic annulus normal. Ascending aorta not well visualized. CONCLUSIONS Hyperdynamic LV of normal size Previewed by: Dr. Giorgi Martini MD (Electronically Signed) Final Date: 16 December 2023 12:47
== END | disposition home or self-care (01) ==
LOC: RADECHMAIN 15:48
PROVIDERS: ATTEND Internal Medicine Clinical Cardiac Electrophysiology
DX: I51.7 Cardiomegaly (principal); I51.81 Takotsubo syndrome; E78.5 Hyperlipidemia, unspecified
CPT/HCPCS: 93306

== ENCOUNTER → 2024-08-03 | Outpatient (CLI) | payer MEDICAID, MEDICARE ==
--- NOTE | 2024-08-03 12:17 | CT ---
EXAMINATION TYPE: CT abdomen pelvis wo con CT DLP: 577.6 mGycm, Automated exposure control for dose reduction was used. DATE OF EXAM: 08/03/2024 12:04 PM COMPARISON: CT abdomen pelvis 10/29/2023, abdominal radiograph 11/28/2023 CLINICAL INDICATION:Male, 64 years old with history of R30.9 PAINFUL MICTURITION, UNSPECIFIED R31.9 H EMAT; hematuria TECHNIQUE: Standard CT of the abdomen and pelvis without IV or oral contrast. Lack of IV or oral co ntrast limits evaluation of solid and hollow organ viscera. Coronal and sagittal reformats were perfo rmed. FINDINGS: LOWER CHEST: Linear atelectasis within the bilateral lower lobes. ABDOMEN LIVER: Unremarkable noncontrast appearance GALLBLADDER AND BILE DUCTS: Unremarkable noncontrast appearance PANCREAS: Unremarkable noncontrast appearance SPLEEN: Unremarkable noncontrast appearance ADRENAL GLANDS: Unremarkable noncontrast appearance. KIDNEYS AND URETERS: No evidence of hydronephrosis. Nonobstructive right renal calculus measuring up to 3 mm. Couple of nonobstructive left renal calculi measuring up to 7 mm. Approximately 3 right isaac l cyst largest in the superior pole measuring up to 4.1 cm. No ureteral calculi identified. PELVIS BLADDER: Incompletely distended but grossly unremarkable. REPRODUCTIVE: Coarse calcifications of the prostate gland are identified. ABDOMEN & PELVIS STOMACH AND BOWEL: Stomach and duodenum are unremarkable. Postsurgical changes with right lower quadr ant ostomy with colectomy and Banuelos's pouch. No focal wall thickening or surrounding inflammatory c hanges. No evidence of bowel obstruction. PERITONEUM: No evidence of pneumoperitoneum or free fluid. VASCULATURE: Mild atherosclerotic calcifications are present throughout the abdominal aorta and its b ranches. No evidence of aortic aneurysm. Pelvic phleboliths. MUSCULOSKELETAL: No acute osseous abnormalities. Degenerative disc disease most pronounced at L3-L4 w ith disc space narrowing, endplate sclerosis, anterior osteophytosis, and vacuum disc disease. LYMPH NODES: No gross evidence for lymphadenopathy. SOFT TISSUE/ABDOMINAL WALL: Postsurgical changes of the midline anterior wall. Right lower quadrant o stomy. IMPRESSION: 1. No evidence for obstructive uropathy or acute abdominopelvic process. 2. Nonobstructive bilateral renal calculi with right renal cysts redemonstrated. 3. Postsurgical changes of the bowel redemonstrated. [facility], , 08/03/2024 12:14 PM
== END | disposition home or self-care (01) ==
LOC: RADCTMAIN 11:28
PROVIDERS: ATTEND Family Medicine
DX: N20.0 Calculus of kidney (principal); R31.9 Hematuria, unspecified; N28.1 Cyst of kidney, acquired; Z98.890 Other specified postprocedural states; I70.0 Atherosclerosis of aorta; J98.11 Atelectasis
CPT/HCPCS: 74176

== ENCOUNTER → 2024-09-27 | Outpatient (CLI) | payer MEDICARE, OTHER ==
[2024-09-27 11:47] LABS: Appearance,Urine Cloudy (Clear); Bilirubin,Urine Negative (Negative); Blood,Urine Large (Negative); Calcium Oxalate Crystals,Urine Occasional /hpf; Color,Urine Light Red; Glucose,Urine (UA) Negative (Negative); Ketones,Urine Negative (Negative); Leukocyte Esterase,Urine Negative (Negative); Mucus,Urine Few /hpf; Nitrite,Urine Negative (Negative); PH, Urine 5.5 (5.0-8.0); Protein,Urine 1+ (Negative); RBC,Urine >182 /hpf (0-5); Specific Gravity,Urine 1.017 (1.001-1.035); Squamous Epithelial Cell,Urine <1 /hpf (0-4); Urobilinogen,Urine <2.0 mg/dL (<2.0); WBC,Urine 6 /hpf (0-5)
[2024-09-27 20:01] LABS: ALT 13 U/L (10-49); AST 15 U/L (14-35); Albumin 4.3 g/dL (3.8-4.9); Albumin/Globulin Ratio 1.34 Ratio (1.60-3.17); Alkaline Phosphatase 73 U/L (41-126); BUN/Creat Ratio 14.27 Ratio (12.00-20.00); Blood Urea Nitrogen 21.4 mg/dL (9.0-27.0); Calcium 10.2 mg/dL (8.7-10.3); Carbon Dioxide 21.2 mmol/L (21.6-31.8); Chloride 106 mmol/L (96-109); Creatine Kinase 123 U/L (35-257); Globulin 3.2 g/dL (1.6-3.3); Glucose 147 mg/dL (70-110); Magnesium 1.5 mg/dL (1.5-2.4); Potassium 3.9 mmol/L (3.5-5.5); Sodium 141 mmol/L (135-145); Total Bilirubin 0.3 mg/dL (0.3-1.2); Total Protein 7.5 g/dL (6.2-8.2)
== END | disposition home or self-care (01) ==
LOC: LABWHC1 10:30
PROVIDERS: ATTEND Internal Medicine Clinical Cardiac Electrophysiology
DX: I10 Essential (primary) hypertension (principal); I42.9 Cardiomyopathy, unspecified; R39.89 Other symptoms and signs involving the genitourinary system
CPT/HCPCS: 36415; 80053; 81001; 82550; 83735

== ENCOUNTER 2024-10-28 22:06 | Inpatient (IN) | payer OTHER, MEDICARE ==
--- NOTE | 2024-10-28 22:27 | ED ---
Nausea/Vomiting/Diarrhea HPI - General Source: patient, family, RN notes reviewed Mode of arrival: ambulatory Limitations: no limitations <Kenya Link - Last Filed: 10/29/24 00:19> <Joanna Iraheta - Last Filed: 10/29/24 05:35> - General Chief complaint: Nausea/Vomiting/Diarrhea Stated complaint: Vomiting Time Seen by Provider: 10/28/24 22:11 - History of Present Illness Initial comments: 64-year-old male with history of CVA and right-sided deficits,colostomy, and diabetes presenting to the emergency department with sons for complaint of nausea and vomiting. Patient states that since Thursday he has been experiencing nausea, vomiting, and pain around his ostomy site and abdomen. He denies fevers, chills, diarrhea, hematemesis, coffee-ground emesis. He denies chest pain, difficulty breathing, peripheral edema, cough, rhinorrhea, congestion. States he is still passing gas. Has been having a difficult time keeping down food due to persistent nausea and is concerned he is dehydrated. There is also been a watery amount of output from his ostomy. (Kenya Link) - Related Data Home Medications Medication Instructions Recorded Confirmed Atorvastatin [Lipitor] 80 mg PO DAILY@0800 12/20/21 11/27/23 Docusate [Colace] 100 mg PO BID@0800,17012/20/21 11/27/23 Gabapentin [Neurontin] 100 mg PO TID@0800,1400,209912/20/21 11/27/23 Pantoprazole [Protonix] 40 mg PO DAILY@0812/20/21 11/27/23 metFORMIN HCL 500 mg PO BID@0800,1700 12/20/21 11/27/23 Baclofen 10 mg PO QID@08,12,17,10/25/23 11/27/23 Dicyclomine [Bentyl] 10 mg PO TID@0800,1200,1700 10/25/23 11/27/23 Loperamide [Imodium] 4 mg PO QID@08,12,17,10/25/23 11/27/23 Mirtazapine 30 mg PO HS@2100 10/25/23 11/27/23 Sertraline [Zoloft] 100 mg PO DAILY@0800 10/25/23 11/27/23 Acetaminophen [Tylenol] 650 mg PO Q4H PRN 11/27/23 11/27/23 Apixaban [Eliquis] 5 mg PO BID@0800,1700 11/27/23 11/27/23 INSULIN LISPRO (HumaLOG) [humaLOG] See Protocol SQ TID PRN 11/27/23 11/27/23 Ondansetron [Zofran] 4 mg PO TID@0800,1400,2100 11/27/23 11/27/23 carvediloL [Coreg] 6.25 mg PO BID@0800,1700 11/27/23 11/27/23 droNABinol [Marinol] 2.5 mg PO BID@0800,1700 11/27/23 11/27/23 lisinopriL [Zestril] 5 mg PO DAILY@1200 11/27/23 11/27/23 Previous Rx's Medication Instructions Recorded Thiamine [Vitamin B-1] 100 mg PO DAILY #30 tablet 11/30/23 Allergies Allergy/AdvReac Type Severity Reaction Status Date / Time No Known Allergies Allergy Verified 10/28/24 22:10 Review of Systems ROS Other: All systems not noted in ROS Statement are negative. <Kenya Link - Last Filed: 10/29/24 00:19> ROS Other: All systems not noted in ROS Statement are negative. <Joanna Iraheta - Last Filed: 10/29/24 05:35> ROS Statement: Those systems with pertinent positive or pertinent negative responses have been documented in the HPI. Past Medical History Past Medical History: CVA/TIA, Diabetes Mellitus, Hyperlipidemia, Hypertension, Sleep Apnea/CPAP/BIPAP Additional Past Medical History / Comment(s): uses CPAP, CEREBRAL BLEED 08/19/22 RIGHT SIDE WEAKNESS History of Any Multi-Drug Resistant Organisms: None Reported Past Surgical History: Heart Catheterization, Hernia Repair Additional Past Surgical History / Comment(s): COLONOSCOPY Past Anesthesia/Blood Transfusion Reactions: No Reported Reaction Past Psychological History: Depression Smoking Status: Former smoker Past Alcohol Use History: Occasional Past Drug Use History: None Reported - Past Family History Sister(s) Family Medical History: Cancer Additional Family Medical History / Comment(s): 1 SISTER FROM ESOPHAGEL CANCER. 1 SISTER HAD BREAST CANCER <Kenya Link - Last Filed: 10/29/24 00:19> General Exam Limitations: no limitations Neck exam: Present: normal inspection. Absent: tenderness, meningismus, lymphadenopathy Respiratory exam: Present: normal lung sounds bilaterally. Absent: respiratory distress, wheezes, rales, rhonchi, stridor Cardiovascular Exam: Present: regular rate, normal rhythm, normal heart sounds. Absent: systolic murmur, diastolic murmur, rubs, gallop, clicks GI/Abdominal exam: Present: soft, tenderness (Right mid abdomen), normal bowel sounds, other (ostomy). Absent: distended, guarding, rebound, rigid Extremities exam: Present: normal inspection, full ROM, normal capillary refill. Absent: tenderness, pedal edema, joint swelling, calf tenderness Back exam: Present: normal inspection <Kenya Link - Last Filed: 10/29/24 00:19> General appearance: alert, in no apparent distress Head exam: Present: atraumatic, normocephalic, normal inspection Eye exam: Present: normal appearance, PERRL, EOMI. Absent: scleral icterus, conjunctival injection, periorbital swelling ENT exam: Present: normal exam, mucous membranes moist GI/Abdominal exam: Present: tenderness, other <Joanna Iraheta aJson - Last Filed: 10/29/24 05:35> Course Vital Signs 10/28/24 10/29/24 22:07 01:27 Temperature 97.9 F Pulse Rate 95 88 Respiratory 18 16 Rate Blood Pressure 116/77 110/68 O2 Sat by Pulse 97 97 Oximetry Medical Decision Making - Lab Data Result diagrams: 10/28/24 23:00 10/28/24 23:00 <[email or web address] - Last Filed: 10/29/24 00:19> - Lab Data Result diagrams: 10/28/24 23:00 10/28/24 23:00 <EsequielJoanna A - Last Filed: 10/29/24 05:35> - Medical Decision Making Was pt. sent in by a medical professional or institution (, PA, ENTERPRISE ACCOUNT MANAGER, urgent care, hospital, or half-way...) When possible be specific @ -[No] Did you speak to anyone other than the patient for history (EMS, parent, family, police, friend...)? What history was obtained from this source @ -[No] Did you review nursing and triage notes (agree or disagree)? Why? @ -[I reviewed and agree with nursing and triage notes] Were old charts reviewed (outside hosp., previous admission, EMS record, old EKG, old radiological studies, urgent care reports/EKG's, half-way records)? Report findings @ -[No old charts were reviewed] Differential Diagnosis (chest pain, altered mental status, abdominal pain women, abdominal pain men, vaginal bleeding, weakness, fever, dyspnea, syncope, headache, dizziness, GI bleed, back pain, seizure, CVA, palpatations, mental health, musculoskeletal)? @ -Differential Abdominal Pain Men: Appendicitis, cholecystitis, diverticulosis, ischemic bowel, pancreatitis, hepatitis, UTI, gastroenteritis, AAA, incarcerated hernia, bowel obstruction, constipation, inflammatory bowel, hepatitis, peptic ulcer disease, splenic infarction, perforated viscus, testicular torsion, this is not meant to be an all-inclusive list EKG interpreted by me (3pts min.). @ -none X-rays interpreted by me (1pt min.). @ -[None done] CT interpreted by me (1pt min.). @ -[None done] U/S interpreted by me (1pt. min.). @ -[None done] What testing was considered but not performed or refused? (CT, X-rays, U/S, labs)? Why? @ -[None] What meds were considered but not given or refused? Why? @ -[None] Did you discuss the management of the patient with other professionals (professionals i.e. , PA, ENTERPRISE ACCOUNT MANAGER, lab, RT, psych nurse, social sciences chair, regional construction manager, teacher, marine safety officer, oil field caser)? Give summary @ -[No] Was smoking cessation discussed for >3mins.? @ -[No] Was critical care preformed (if so, how long)? @ -[No] Were there social determinants of health that impacted care today? How? (Homelessness, low income, unemployed, alcoholism, drug addiction, transportation, low edu. Level, literacy, decrease access to med. care, fdc, rehab)? @ -[No] Was there de-escalation of care discussed even if they declined (Discuss DNR or withdrawal of care, Hospice)? DNR status @ -[No] What co-morbidities impacted this encounter? (DM, HTN, Smoking, COPD, CAD, Cancer, CVA, ARF, Chemo, Hep., AIDS, mental health diagnosis, sleep apnea, morbid obesity)? @ -[None] Was patient admitted / discharged? Hospital course, mention meds given and route, prescriptions, significant lab abnormalities, going to OR and other pertinent info. @ -admitted. 65-year-old male presenting with nausea, vomiting, abdominal pain. Patient's ostomy is well-appearing with no erythema or signs of bloody drainage. Patient is provided with dose of Zofran and 1L fluid bolus and will undergo laboratory testing including CT imaging for further evaluation of abdominal pain. CMP remarkable for acute kidney injury with a creatinine of 3.13 and BUN of 51, and CO2 of 14 likely secondary to emesis and dehydration. Patient is provided with additional 500 mL fluid bolus and is signed out to my attending, Dr. Iraheta, pending CT results. Patient will be admitted for acute kidney injury and is started on maintenance fluids. Undiagnosed new problem with uncertain prognosis? @ -[No] Drug Therapy requiring intensive monitoring for toxicity (Heparin, Nitro, Insulin, Cardizem)? @ -[No] Were any procedures done? @ -[No] Diagnosis/symptom? @ -[default] Acute, or Chronic, or Acute on Chronic? @ -[default] Uncomplicated (without systemic symptoms) or Complicated (systemic symptoms)? @ -[default] Side effects of treatment? @ -[No] Exacerbation, Progression, or Severe Exacerbation? @ -[No] Poses a threat to life or bodily function? How? (Chest pain, [place], [place], pneumonia, PE, COPD, DKA, ARF, appy, cholecystitis, CVA, Diverticulitis, Homicidal, Suicidal, threat to staff... and all critical care pts) @ -[No] (Kenya Link) Was patient admitted / discharged? Hospital course, mention meds given and route, prescriptions, significant lab abnormalities, going to OR and other pertinent info. @ -Patient was signed out to me pending CT read. Admitting orders has been placed by the midlevel provider. Patient was taken upstairs before read had returned. It did demonstrate a right sided ureteral stone. We do not have urology available. Because of this and the patient's acute kidney injury I did recommend that the patient be transferred as to not delay any intervention that could assist the patient's kidney function. Patient was agreeable to transfer. He is requesting [facility]. I did speak with Dr. Slater from urology who does agree that the patient should be transferred for urologic evaluation. I then called and spoke with Dr. Crocker from internal medicine who agreed to accept the patient. Patient will be transferred to a general medical floor. He is transferred in stable condition Undiagnosed new problem with uncertain prognosis? @ -No Drug Therapy requiring intensive monitoring for toxicity (Heparin, Nitro, Insulin, Cardizem)? @ -No Were any procedures done? @ -No Diagnosis/symptom? @ -Acute abdominal pain, acute kidney injury, acute right sided ureteral stone with hydronephrosis Acute, or Chronic, or Acute on Chronic? @ -Acute Uncomplicated (without systemic symptoms) or Complicated (systemic symptoms)? @ -complicated Side effects of treatment? @ -No Exacerbation, Progression, or Severe Exacerbation? @ -No Poses a threat to life or bodily function? How? (Chest pain, [place], [place], pneumonia, PE, COPD, DKA, ARF, appy, cholecystitis, CVA, Diverticulitis, Homicidal, Melvi cidal, threat to staff... and all critical care pts) @ -No (Joanna Iraheta) - Lab Data Lab Results 10/28/24 10/28/24 10/28/24 Range/Units 23:00 23:00 23:03 WBC 9.8 (3.8-10.6) k/uL RBC 3.82 L (4.30-5.90) m/uL Hgb 11.1 L (13.0-17.5) gm/dL Hct 34.3 L (39.0-53.0) % MCV 89.7 (80.0-100.0) fL MCH 28.9 (25.0-35.0) pg MCHC 32.3 (31.0-37.0) g/dL RDW 13.6 (11.5-15.5) % Plt Count 300 (150-450) k/uL MPV 8.0 Neutrophils % 74 % Lymphocytes % 17 % Monocytes % 4 % Eosinophils % 3 % Basophils % 0 % Neutrophils # 7.3 (1.3-7.7) k/uL Lymphocytes # 1.6 (1.0-4.8) k/uL Monocytes # 0.4 (0-1.0) k/uL Eosinophils # 0.3 (0-0.7) k/uL Basophils # 0.0 (0-0.2) k/uL Sodium 141 (137-145) mmol/L Potassium 4.4 (3.5-5.1) mmol/L Chloride 110 H (98-107) mmol/L Carbon Dioxide 14 L (22-30) mmol/L Anion Gap 17 mmol/L BUN 51 H (9-20) mg/dL Creatinine 3.13 H (0.66-1.25) mg/dL Est GFR (CKD-EPI)AfAm 23 (>60 ml/min/1.73 sqM) Est GFR (CKD-EPI)NonAf 20 (>60 ml/min/1.73 sqM) Glucose 144 H (74-99) mg/dL Plasma Lactic Acid [place] 1.9 (0.7-2.0) mmol/L Calcium 10.7 H (8.4-10.2) mg/dL Total Bilirubin 0.6 (0.2-1.3) mg/dL AST 33 (17-59) U/L ALT 19 (4-49) U/L Alkaline Phosphatase 87 (38-126) U/L Total Protein 8.1 (6.3-8.2) g/dL Albumin 4.7 (3.5-5.0) g/dL Lipase 244 (23-300) U/L Disposition Decision to Admit Reason: Admit from <Kenya Link - Last Filed: 10/29/24 00:19> - Out of Hospital Transfer - Req. Specs Out of Hospital Transfer - Requested Specifics: Other Non-Acute ([facility]) <Joanna Iraheta - Last Filed: 10/29/24 05:35> Clinical Impression: LURDES (acute kidney injury) Disposition: OTHER INSTITUTION NOT DEFINED Condition: Stable
[2024-10-28] MEDS: ONDANSETRON 4 MG/2 ML VIAL IVP STA (23:06)
[2024-10-28] MEDS: SODIUM CHLORIDE 0.9% 1,000 ML IV STA (23:06)
[2024-10-28 23:21] LABS: Basophils % (A) 0 %; Eosinophils # (A) 0.3 k/uL (0-0.7); Eosinophils % (A) 3 %; HCT 34.3 % (39.0-53.0); HGB 11.1 gm/dL (13.0-17.5); Lymphocytes # (A) 1.6 k/uL (1.0-4.8); Lymphocytes % (A) 17 %; MCH 28.9 pg (25.0-35.0); MCHC 32.3 g/dL (31.0-37.0); MCV 89.7 fL (80.0-100.0); Monocytes # (A) 0.4 k/uL (0-1.0); Monocytes % (A) 4 %; Neutrophils # (A) 7.3 k/uL (1.3-7.7); Neutrophils % (A) 74 %; Platelet Count 300 k/uL (150-450); RBC 3.82 m/uL (4.30-5.90); RDW 13.6 % (11.5-15.5); WBC 9.8 k/uL (3.8-10.6)
[2024-10-29 00:04] LABS: ALT 19 U/L (4-49); AST 33 U/L (17-59); African American GFR (CKD) 23 (>60 ml/min/1.73 sqM); Albumin 4.7 g/dL (3.5-5.0); Alkaline Phosphatase 87 U/L (38-126); Anion Gap 17 mmol/L; Blood Urea Nitrogen 51 mg/dL (9-20); Calcium 10.7 mg/dL (8.4-10.2); Carbon Dioxide 14 mmol/L (22-30); Chloride 110 mmol/L (98-107); Glucose 144 mg/dL (74-99); Lipase 244 U/L (23-300); Non-African American GFR(CKD) 20 (>60 ml/min/1.73 sqM); Potassium 4.4 mmol/L (3.5-5.1); Sodium 141 mmol/L (137-145); Total Bilirubin 0.6 mg/dL (0.2-1.3); Total Protein 8.1 g/dL (6.3-8.2)
[2024-10-29] MEDS ORDERED: NALOXONE 0.4 MG/ML 1 ML VIAL IV PRN (00:16)
[2024-10-29] MEDS: SODIUM CHLORIDE 0.9% 500 ML 500 ML IV STA (01:09)
--- NOTE | 2024-10-29 01:09 | CT ---
EXAM: CT Abdomen and Pelvis Without Intravenous Contrast CLINICAL HISTORY: Abdominal pain around ostomy, N/V TECHNIQUE: Axial computed tomography images of the abdomen and pelvis without intravenous contrast. CTDI is 13.5 mGy and DLP is 843.3 mGy-cm. This CT exam was performed using one or more of the following dose reduction techniques: automated exposure control, adjustment of the mA and/or kV according to patient size, and/or use of iterative reconstruction technique. COMPARISON: No relevant prior studies available. FINDINGS: Artifacts: Scatter artifact likely related to patient's arm position. Limitations: There is respiratory artifact, which degrades image quality on multiple image slices. Lung bases: Curvilinear changes noted in the lower lobes. No focal airspace consolidation. ABDOMEN: Liver: Unremarkable. Gallbladder and bile ducts: Subtle layering hyperdense material noted in the gallbladder without calcified gallstones. No gallbladder wall thickening or biliary dilatation. There is granular hyperdense material layering posteriorly in the gallbladder. Pancreas: Unremarkable. No ductal dilation. Spleen: Unremarkable. No splenomegaly. Adrenals: Unremarkable. No mass. Kidneys and ureters: 10 mm proximal right ureteral stone at the UPJ with mild to moderate right hydronephrosis. Additional nephrolithiasis noted bilaterally. The largest stone burden is noted inferiorly on the right measuring 13 mm. Presumed cortical cyst noted involving the inferior pole of the right kidney, measuring up to 3.2 cm from 3 cm previously. Stomach and bowel: Stomach and bowel No evidence for bowel obstruction. Evaluation of bowel mucosa is limited without contrast and respiratory artifact. Nonspecific fluid and gas distended small bowel loops in the pelvis. 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 The Dewayne pouch is unremarkable and stable in appearance. PELVIS: Appendix: See above. Bladder: No bladder wall thickening. No stones. Reproductive: Unremarkable as visualized. ABDOMEN and PELVIS: Intraperitoneal space: Unremarkable. No free air. No significant fluid collection. Bones/joints: No acute fracture. No dislocation. Soft tissues: Unremarkable. Vasculature: The aorta is normal in caliber. Similar mild ectasia of the common iliac arteries. No acute perivascular abnormality. No abdominal aortic aneurysm. Lymph nodes: Unremarkable. No enlarged lymph nodes. IMPRESSION: 1. 10 mm proximal right ureteral stone at the UPJ with mild to moderate right hydronephrosis. 2. Additional nephrolithiasis noted bilaterally. The largest stone burden is noted inferiorly on the right measuring 13 mm. 3. There is granular hyperdense material layering posteriorly in the gallbladder. Favor granular excreted renal collecting stones. No bladder wall thickening.
[2024-10-29] MEDS: MORPHINE SULFATE 4 MG/ML SYRINGE IVP STA (01:14)
[2024-10-29] MEDS: SODIUM CHLORIDE 0.9% 1,000 ML IV SCH (02:09)
[2024-10-29 06:12] LABS: Glucose,Whole Blood 112 mg/dL (70-110)
[2024-10-29 10:32] LABS: Glucose,Whole Blood 121 mg/dL (70-110)
[2024-10-29 11:14] LABS: Appearance,Urine Cloudy (Clear); Bacteria,Urine Rare /hpf; Bilirubin,Urine Negative (Negative); Blood,Urine Large (Negative); Color,Urine Light Red; Glucose,Urine (UA) Negative (Negative); Ketones,Urine Negative (Negative); Leukocyte Esterase,Urine Negative (Negative); Mucus,Urine Rare /hpf; Nitrite,Urine Negative (Negative); PH, Urine 5.5 (5.0-8.0); Protein,Urine 1+ (Negative); RBC,Urine >182 /hpf (0-5); Specific Gravity,Urine 1.017 (1.001-1.035); Urobilinogen,Urine <2.0 mg/dL (<2.0); WBC,Urine 4 /hpf (0-5)
[2024-10-29] MEDS ORDERED: HYDROcodone/APAP 10-325MG 1 EACH TAB PO PRN (13:57)
[2024-10-29] MEDS: MORPHINE SULFATE 2 MG/ML SYRINGE IVP PRN (14:37)
--- NOTE | 2024-10-29 15:20 | P.HPIM ---
History of Present Illness H&P Date: 10/29/24 Chief Complaint: abd pain, hematuria pt prsented to er with flank pain abd pain , hematuria, consistant with renal colic,LURDES, and renal calculi, because there is no services available, this weekend this pt is apparently being transfered to [facility], currently waiting on transfer services Review of Systems Constitutional: Reports anorexia, Reports malaise, Reports poor appetite, Reports weakness Ears, nose, mouth and throat: Reports as per HPI Cardiovascular: Reports as per HPI Respiratory: Reports as per HPI Gastrointestinal: Reports abdominal pain (flank pain, hematuria) Genitourinary: Reports flank pain, Reports hematuria, Reports kidney stones, Reports urinary retention Musculoskeletal: Reports as per HPI Integumentary: Reports as per HPI Neurological: Reports as per HPI Psychiatric: Reports as per HPI Endocrine: Reports high blood sugars, Reports polydipsia, Reports polyphagia Hematologic/Lymphatic: Reports as per HPI Allergic/Immunologic: Reports as per HPI Past Medical History Past Medical History: CVA/TIA, Diabetes Mellitus, Hyperlipidemia, Hypertension, Sleep Apnea/CPAP/BIPAP Additional Past Medical History / Comment(s): uses CPAP, CEREBRAL BLEED 08/19/22 RIGHT SIDE WEAKNESS History of Any Multi-Drug Resistant Organisms: None Reported Past Surgical History: Bowel Resection, Heart Catheterization, Hernia Repair Additional Past Surgical History / Comment(s): Colostomy, colonoscopy Past Anesthesia/Blood Transfusion Reactions: No Reported Reaction Past Psychological History: Depression Smoking Status: Former smoker Past Alcohol Use History: Occasional Additional Past Alcohol Use History / Comment(s): STARTED SMOKING AT AGE 21 QUIT SMOKING AT AGE 37 SMOKED LESS THAN 1 PACK A MONTH Past Drug Use History: None Reported - Past Family History Sister(s) Family Medical History: Cancer Additional Family Medical History / Comment(s): 1 SISTER FROM ESOPHAGEL CANCER. 1 SISTER HAD BREAST CANCER Medications and Allergies Home Medications Medication Instructions Recorded Confirmed Type Atorvastatin [Lipitor] 80 mg PO DAILY@0800 12/20/21 11/27/23 History Docusate [Colace] 100 mg PO BID@0800,1700 12/20/21 11/27/23 History Gabapentin [Neurontin] 100 mg PO TID@0800,1400,2100 12/20/21 11/27/23 History Pantoprazole [Protonix] 40 mg PO DAILY@0800 12/20/21 11/27/23 History metFORMIN HCL 500 mg PO BID@0800,1700 12/20/21 11/27/23 History Baclofen 10 mg PO QID@08,12,,10/25/23 11/27/23 History Dicyclomine [Bentyl] 10 mg PO TID@0800,1200,1700 10/25/23 11/27/23 History Loperamide [Imodium] 4 mg PO QID@08,12,,10/25/23 11/27/23 History Mirtazapine 30 mg PO HS@2100 10/25/23 11/27/23 History Sertraline [Zoloft] 100 mg PO DAILY@0800 10/25/23 11/27/23 History Acetaminophen [Tylenol] 650 mg PO Q4H PRN 11/27/23 11/27/23 History Apixaban [Eliquis] 5 mg PO BID@0800,1700 11/27/23 11/27/23 History INSULIN LISPRO (HumaLOG) [humaLOG] See Protocol SQ TID PRN 11/27/23 11/27/23 History Ondansetron [Zofran] 4 mg PO TID@0800,1400,2100 11/27/23 11/27/23 History carvediloL [Coreg] 6.25 mg PO BID@0800,1700 11/27/23 11/27/23 History droNABinol [Marinol] 2.5 mg PO BID@0800,1700 11/27/23 11/27/23 History lisinopriL [Zestril] 5 mg PO DAILY@1200 11/27/23 11/27/23 History Thiamine [Vitamin B-1] 100 mg PO DAILY #30 tablet 11/30/23 Rx Allergies Allergy/AdvReac Type Severity Reaction Status Date / Time No Known Allergies Allergy Verified 10/28/24 22:10 Physical Exam Osteopathic Statement: *. No significant issues noted on an osteopathic structural exam other than those noted in the History and Physical/Consult. Vitals: Vital Signs Temp Pulse Pulse Resp BP BP Pulse Ox 10/29/24 14:00 98.2 F 75 18 112/70 97 10/29/24 07:04 98.6 F 68 16 130/78 98 10/29/24 02:00 98.3 F 67 18 120/75 98 10/29/24 01:27 88 16 110/68 97 10/28/24 22:07 97.9 F 95 18 116/77 97 Intake and Output 10/28/24 10/29/24 10/29/24 22:59 06:59 14:59 Other: Weight 85.275 kg 85.275 kg Heent: anabel, eomi,nares patent, throat clear, neck supple, no noted carotid bruit Heart: regulary, irregular grade 3 ji lung: clear Abd: soft mild diffuse tenderness, suprapubic tenderness Extremes: no edema no cyanosis, no claudication normal male genatalia Results CBC & Chem 7: 10/28/24 23:00 10/28/24 23:00 Labs: Abnormal Lab Results - Last 24 Hours (Table) 10/28/24 10/28/24 10/29/24 Range/Units 23:00 23:00 06:11 RBC 3.82 L (4.30-5.90) m/uL Hgb 11.1 L (13.0-17.5) gm/dL Hct 34.3 L (39.0-53.0) % Chloride 110 H (98-107) mmol/L Carbon Dioxide 14 L (22-30) mmol/L BUN 51 H (9-20) mg/dL Creatinine 3.13 H (0.66-1.25) mg/dL Glucose 144 H (74-99) mg/dL POC Glucose (mg/dL) 112 H (70-110) mg/dL Calcium 10.7 H (8.4-10.2) mg/dL Urine Protein (Negative) Urine Blood (Negative) Urine RBC (0-5) /hpf Urine Bacteria (None) /hpf Urine Mucus (None) /hpf 10/29/24 10/29/24 Range/Units 10:28 10:42 RBC (4.30-5.90) m/uL Hgb (13.0-17.5) gm/dL Hct (39.0-53.0) % Chloride (98-107) mmol/L Carbon Dioxide (22-30) mmol/L BUN (9-20) mg/dL Creatinine (0.66-1.25) mg/dL Glucose (74-99) mg/dL POC Glucose (mg/dL) 121 H (70-110) mg/dL Calcium (8.4-10.2) mg/dL Urine Protein 1+ H (Negative) Urine Blood Large H (Negative) Urine RBC >182 H (0-5) /hpf Urine Bacteria Rare H (None) /hpf Urine Mucus Rare H (None) /hpf Thrombosis Risk Factor Assmnt - Choose All That Apply Any of the Below Risk Factors Present?: Yes Each Factor Represents 1 point: Obesity (BMI >25) Each Risk Factor Represents 2 Points: Age 61-74 years Thrombosis Risk Factor Assessment Total Risk Factor Score: 3 Thrombosis Risk Factor Assessment Level: Moderate Risk Assessment and Plan (1) Renal calculi Current Visit: Yes Status: Acute Code(s): N20.0 - CALCULUS OF KIDNEY SNOMED Code(s): 01647250 (2) Renal calculus, bilateral Current Visit: Yes Status: Acute Code(s): N20.0 - CALCULUS OF KIDNEY SNOMED Code(s): 05262718 (3) LURDES (acute kidney injury) Current Visit: Yes Status: Acute Code(s): N17.9 - ACUTE KIDNEY FAILURE, UNSPECIFIED SNOMED Code(s): 69966382 (4) Abdominal pain Current Visit: No Status: Acute Code(s): R10.9 - UNSPECIFIED ABDOMINAL PAIN SNOMED Code(s): 14887639 (5) Cerebrovascular accident (CVA) Current Visit: No Status: Acute Code(s): I63.9 - CEREBRAL INFARCTION, UNSPECIFIED SNOMED Code(s): 994005544 Plan: agressive pain management transfer arranged with [facility] case discussed with pt and Time with Patient: Greater than 30
[2024-10-29 17:16] LABS: Glucose,Whole Blood 146 mg/dL (70-110)
[2024-10-29] MEDS ORDERED: LOPERAMIDE 2 MG CAP PO PRN (17:30)
[2024-10-29] MEDS: carvediloL 6.25 MG TAB PO SCH (17:54)
[2024-10-29] MEDS: MEGESTROL 400 MG/10 ML CUP PO SCH (17:54)
[2024-10-29] MEDS: SUCRALFATE 1 GM TAB PO SCH (17:54)
[2024-10-29] MEDS ORDERED: LOPERAMIDE 2 MG CAP PO SCH (18:00)
[2024-10-29 20:46] LABS: Glucose,Whole Blood 161 mg/dL (70-110)
[2024-10-29] MEDS: DICYCLOMINE 10 MG CAP PO SCH (21:14)
[2024-10-29] MEDS: metFORMIN 500 MG TAB PO SCH (21:14)
[2024-10-29] MEDS: droNABinol 2.5 MG CAP PO SCH (21:14)
[2024-10-29] MEDS: GABAPENTIN 100 MG CAP PO SCH (21:14)
[2024-10-29] MEDS: SERTRALINE 100 MG TAB PO SCH (21:14)
[2024-10-29] MEDS: BACLOFEN 10 MG TAB PO SCH (21:14)
[2024-10-29] MEDS: APIXABAN 5 MG TAB PO SCH (21:14)
[2024-10-30 06:29] LABS: Glucose,Whole Blood 105 mg/dL (70-110)
[2024-10-30] MEDS: PANTOPRAZOLE 40 MG TABLET PO SCH (07:55)
[2024-10-30] MEDS: ATORVASTATIN 80 MG TAB PO SCH (07:55)
[2024-10-30 09:35] LABS: Basophils # (A) 0.03 X 10*3/uL (0.00-0.10); Basophils % (A) 0.4 %; Lymphocytes # (A) 1.72 X 10*3/uL (0.90-5.00); Lymphocytes % (A) 22.8 %; MCH 28.8 pg (27.0-32.0); MCHC 32.1 g/dL (32.0-37.0); MCV 89.5 FL (80.0-97.0); Mean Platelet Volume 10.9 FL (9.5-12.2); Monocytes % (A) 6.6 %; NRBC Per 100 WBC 0 X 10*3/uL (0.00-0.01); Neutrophils # (A) 4.99 X 10*3/uL (1.80-7.70); Neutrophils % (A) 65.9 %; Platelet Count 251 X 10*3/uL (140-440); RBC 3.13 X 10*6/uL (4.40-5.60); RDW 13.5 % (11.5-14.5); WBC 7.56 X 10*3/uL (4.50-10.00)
[2024-10-30 10:18] LABS: ALT 15 U/L (10-49); AST 33 U/L (14-35); Albumin 3.8 g/dL (3.8-4.9); Albumin/Globulin Ratio 1.58 Ratio (1.60-3.17); Alkaline Phosphatase 80 U/L (41-126); BUN/Creat Ratio 15.72 Ratio (12.00-20.00); Blood Urea Nitrogen 39.3 mg/dL (9.0-27.0); Calcium 9.7 mg/dL (8.7-10.3); Carbon Dioxide 15.4 mmol/L (21.6-31.8); Chloride 114 mmol/L (96-109); Globulin 2.4 g/dL (1.6-3.3); Glucose 105 mg/dL (70-110); Potassium 3.9 mmol/L (3.5-5.5); Sodium 142 mmol/L (135-145); Total Bilirubin <0.2 mg/dL (0.3-1.2); Total Protein 6.2 g/dL (6.2-8.2)
[2024-10-30] MEDS: ENOXAPARIN 30 MG/0.3 ML SYRINGE SQ SCH (10:29)
[2024-10-30 11:50] LABS: Glucose,Whole Blood 112 mg/dL (70-110)
--- NOTE | 2024-10-30 13:35 | P.PN ---
Subjective Progress Note Date: 10/30/24 Principal diagnosis: renal calculi, Accute kidney inj as above Objective - Vital Signs Vital signs: Vital Signs Temp 99.0 F 10/30/24 07:43 Pulse 71 10/30/24 07:43 Resp 18 10/30/24 07:43 BP 131/78 10/30/24 07:43 Pulse Ox 97 10/30/24 07:43 FiO2 Intake & Output 10/29/24 10/30/24 10/30/24 17:59 06:59 18:59 Output Total 500 Balance -500 Output: Urine 500 Other: # Voids # Bowel Movements 1 - EENT Eyes: Present: EOMI, PERRLA ENT: Present: normal oropharynx Ears: bilateral: normal - Neck Neck: Present: normal ROM Thyroid: bilateral: normal size - Respiratory Respiratory: bilateral: CTA - Cardiovascular Rhythm: regularly irregular Heart sounds: normal: S1, S2 - Gastrointestinal General gastrointestinal: Present: normal bowel sounds, tenderness Localized gastrointestinal: tender: diffuse, suprabubic, guarding: LUQ - Integumentary Integumentary: Present: normal - Neurologic Neurologic: Present: CNII-XII intact - Musculoskeletal Musculoskeletal: Present: generalized weakness, strength equal bilaterally - Psychiatric Psychiatric: Present: A&O x's 3, appropriate affect, intact judgment & insight - Labs CBC & Chem 7: 10/30/24 06:42 10/30/24 06:42 Labs: Abnormal Lab Results - Last 24 Hours (Table) 10/29/24 10/29/24 10/30/24 Range/Units 17:12 20:42 06:42 RBC 3.13 L (4.40-5.60) X 10*6/uL Hgb 9.0 L (13.0-17.0) g/dL Hct 28.0 L (39.6-50.0) % Chloride (96-109) mmol/L Carbon Dioxide (21.6-31.8) mmol/L Anion Gap (4.00-12.00) mmol/L BUN (9.0-27.0) mg/dL Creatinine (0.6-1.5) mg/dL Est GFR (CKD-EPI) (>=60) POC Glucose (mg/dL) 146 H 161 H (70-110) mg/dL Total Bilirubin (0.3-1.2) mg/dL Albumin/Globulin Ratio (1.60-3.17) Ratio 10/30/24 10/30/24 Range/Units 06:42 11:48 RBC (4.40-5.60) X 10*6/uL Hgb (13.0-17.0) g/dL Hct (39.6-50.0) % Chloride 114 H (96-109) mmol/L Carbon Dioxide 15.4 L (21.6-31.8) mmol/L Anion Gap 12.60 H (4.00-12.00) mmol/L BUN 39.3 H (9.0-27.0) mg/dL Creatinine 2.5 H (0.6-1.5) mg/dL Est GFR (CKD-EPI) 28 L (>=60) POC Glucose (mg/dL) 112 H (70-110) mg/dL Total Bilirubin <0.2 L (0.3-1.2) mg/dL Albumin/Globulin Ratio 1.58 L (1.60-3.17) Ratio Assessment and Plan (1) Renal calculi Current Visit: Yes Status: Acute Code(s): N20.0 - CALCULUS OF KIDNEY SNOMED Code(s): 94148119 (2) Renal calculus, bilateral Current Visit: Yes Status: Acute Code(s): N20.0 - CALCULUS OF KIDNEY SNOMED Code(s): 29478992 (3) LURDES (acute kidney injury) Current Visit: Yes Status: Acute Code(s): N17.9 - ACUTE KIDNEY FAILURE, UNSPECIFIED SNOMED Code(s): 81381708 (4) Abdominal pain Current Visit: No Status: Acute Code(s): R10.9 - UNSPECIFIED ABDOMINAL PAIN SNOMED Code(s): 13654675 (5) Cerebrovascular accident (CVA) Current Visit: No Status: Acute Code(s): I63.9 - CEREBRAL INFARCTION, UNSPECIFIED SNOMED Code(s): 058428030 Plan: agressive pain management pt does not wish to be transfered case discussed with pt and to see pt on thursday continue current care Time with Patient: Greater than 30
[2024-10-30] MEDS: ONDANSETRON 4 MG/2 ML VIAL IVP PRN (14:46)
[2024-10-30 17:07] LABS: Glucose,Whole Blood 119 mg/dL (70-110)
[2024-10-30] MEDS: HYDROcodone/APAP 10-325MG 1 EACH TAB PO SCH (17:13)
[2024-10-30 21:03] LABS: Glucose,Whole Blood 168 mg/dL (70-110)
[2024-10-31 06:18] LABS: Glucose,Whole Blood 134 mg/dL (70-110)
[2024-10-31 11:10] LABS: Glucose,Whole Blood 136 mg/dL (70-110)
[2024-10-31 11:23] LABS: Basophils % (A) 0 %; Eosinophils # (A) 0.4 k/uL (0-0.7); Eosinophils % (A) 4 %; HCT 29.7 % (39.0-53.0); Hypochromasia Slight; Lymphocytes # (A) 1.9 k/uL (1.0-4.8); Lymphocytes % (A) 21 %; MCH 28.4 pg (25.0-35.0); MCHC 31.4 g/dL (31.0-37.0); MCV 90.3 fL (80.0-100.0); Mean Platelet Volume 8.1; Monocytes # (A) 0.5 k/uL (0-1.0); Monocytes % (A) 5 %; Neutrophils % (A) 68 %; Platelet Count 249 k/uL (150-450); RBC 3.29 m/uL (4.30-5.90); RDW 13.7 % (11.5-15.5); WBC 8.8 k/uL (3.8-10.6)
[2024-10-31 11:24] LABS: HGB 9.3 gm/dL (13.0-17.5)
[2024-10-31 11:27] LABS: ALT 16 U/L (4-49); AST 25 U/L (17-59); African American GFR (CKD) 36 (>60 ml/min/1.73 sqM); Albumin 3.6 g/dL (3.5-5.0); Albumin/Globulin Ratio 1.3; Alkaline Phosphatase 71 U/L (38-126); Anion Gap 12 mmol/L; Blood Urea Nitrogen 33 mg/dL (9-20); Calcium 9.8 mg/dL (8.4-10.2); Carbon Dioxide 15 mmol/L (22-30); Chloride 114 mmol/L (98-107); Globulin 2.8 g/dL; Glucose 139 mg/dL (74-99); Magnesium 1.7 mg/dL (1.6-2.3); Non-African American GFR(CKD) 31 (>60 ml/min/1.73 sqM); Sodium 141 mmol/L (137-145); Total Bilirubin 0.2 mg/dL (0.2-1.3); Total Protein 6.4 g/dL (6.3-8.2)
--- NOTE | 2024-10-31 13:05 | P.PN ---
Subjective Progress Note Date: 10/31/24 October 31, 2024: Dillan was reevaluated today for his acute renal failure, obstructing nephrolithiasis and hydronephrosis. He reports pain continues to be colicky, but controlled with medication. He has Tylenol, hydrocodone, and morphine ordered if needed. Denies any chest pain pressure shortness of breath nausea or vomiting at this time. Urology is unavailable till November 02, 2024. He remains afebrile, heart rate respiratory blood pressure controlled. He is anemic with hemoglobin of 9.3. Chemistries are normal except the GFR. It is up from 28 is now 31. Glucose remained controlled with sliding scale. He has a history of CVA. Objective - Vital Signs Vital signs: Vital Signs Temp 98.8 F 10/31/24 08:34 Pulse 74 10/31/24 08:34 Resp 18 10/31/24 08:34 BP 136/75 10/31/24 08:34 Pulse Ox 96 10/31/24 08:34 FiO2 Intake & Output 10/30/24 10/31/24 10/31/24 18:59 06:59 18:59 Output Total 700 750 Balance -700 -750 Output: Urine 700 350 Stool 400 Other: # Voids 1 # Bowel Movements 2 - Exam General: The patient is awake and alert, in no distress, and does not appear acutely ill. Neck: The neck is supple, there is no thyromegaly, lymphadenopathy, tenderness or JVD. Cardiovascular: S1S2 is normal, There is a regular rate and rhythm. No murmur, rub or gallop is appreciated. Respiratory: Lungs are clear to auscultation bilaterally, respirations are non-labored, breath sounds are equal. Gastrointestinal: Soft, non-distended, non-tender abdomen without masses or organomegaly noted. There is no rebound or guarding present. Bowel sounds are unremarkable. Musculoskeletal: Normal ROM, no tenderness, There is no pedal edema. There is no calf tenderness or swelling. No cords were appreciated. Neurological: CN II-XII intact, there are no obvious motor or sensory deficits. Coordination appears grossly intact. Speech is normal. Skin: Skin is warm and dry and no rashes or lesions are noted. - Labs CBC & Chem 7: 10/31/24 10:44 10/31/24 10:44 Labs: Abnormal Lab Results - Last 24 Hours (Table) 10/30/24 10/30/24 10/31/24 Range/Units 17:05 21:01 06:17 RBC (4.30-5.90) m/uL Hgb (13.0-17.5) gm/dL Hct (39.0-53.0) % Chloride (98-107) mmol/L Carbon Dioxide (22-30) mmol/L BUN (9-20) mg/dL Creatinine (0.66-1.25) mg/dL Glucose (74-99) mg/dL POC Glucose (mg/dL) 119 H 168 H 134 H (70-110) mg/dL 10/31/24 10/31/24 10/31/24 Range/Units 10:44 10:44 11:09 RBC 3.29 L (4.30-5.90) m/uL Hgb 9.3 L D (13.0-17.5) gm/dL Hct 29.7 L (39.0-53.0) % Chloride 114 H (98-107) mmol/L Carbon Dioxide 15 L (22-30) mmol/L BUN 33 H (9-20) mg/dL Creatinine 2.18 H (0.66-1.25) mg/dL Glucose 139 H (74-99) mg/dL POC Glucose (mg/dL) 136 H (70-110) mg/dL Assessment and Plan (1) Hydronephrosis concurrent with and due to calculi of kidney and ureter Current Visit: Yes Status: Acute Code(s): N13.2 - HYDRONEPHROSIS WITH RENAL AND URETERAL CALCULOUS OBSTRUCTION SNOMED Code(s): 218981454 (2) Type 2 diabetes mellitus with other circulatory complications Current Visit: Yes Status: Acute Code(s): E11.59 - TYPE 2 DIABETES MELLITUS WITH OTH CIRCULATORY COMPLICATIONS SNOMED Code(s): 25794933 (3) Essential (primary) hypertension Current Visit: Yes Status: Acute Code(s): I10 - ESSENTIAL (PRIMARY) HYPERTENSION SNOMED Code(s): 90305105 (4) Mixed hyperlipidemia Current Visit: Yes Status: Acute Code(s): E78.2 - MIXED HYPERLIPIDEMIA SNOMED Code(s): 313568941 (5) Type 2 diabetes mellitus with other specified complication Current Visit: Yes Status: Acute Code(s): E11.69 - TYPE 2 DIABETES MELLITUS WITH OTHER SPECIFIED COMPLICATION SNOMED Code(s): 98034629 (6) LURDES (acute kidney injury) Current Visit: Yes Status: Acute Code(s): N17.9 - ACUTE KIDNEY FAILURE, UNSPECIFIED SNOMED Code(s): 14101864 (7) Renal calculus, bilateral Current Visit: Yes Status: Acute Code(s): N20.0 - CALCULUS OF KIDNEY SNOMED Code(s): 91784903 (8) Abdominal pain Current Visit: No Status: Acute Code(s): R10.9 - UNSPECIFIED ABDOMINAL PAIN SNOMED Code(s): 50400552 Plan: The patient does not wish to be transferred at this time. His kidney functions are improved. Will continue to monitor and continue his current medications for pain. Will continue to metformin at this time. Continue IV fluids at 75 cc an hour. Basic metabolic panel every 12 hours, ultrasound evaluation of hydronephrosis. Will reevaluate the patient in the next 24 hours
--- NOTE | 2024-10-31 14:24 | US ---
EXAMINATION TYPE: US kidneys/renal and bladder DATE OF EXAM: 10/31/2024 COMPARISON: CT 10/29/2024 CLINICAL INDICATION: Male, 64 years old with history of Evaluate severity of hydronephrosis; adilson TECHNIQUE: Grayscale imaging of the bilateral kidneys and urinary bladder: FINDINGS: EXAM MEASUREMENTS: Right Kidney: 9.9 x 6.7 x 5.8 cm Left Kidney: 10.6 x 6.5 x 5.1 cm Right Kidney: Anechoic area seen on superior pole measuring 6.5 x 4.0 x 4.6 cm; echogenic foci visual ized measuring 2.1 cm mild hydronephrosis Left Kidney: Multiple echogenic foci seen Bladder: Echogenic foci seen on right side measuring 1.3 cm There is no evidence for hydronephrosis at this point in time. No nephrolithiasis is seen. No lashaun s are identified. The urinary bladder is anechoic. IMPRESSION: 1. Mild right hydronephrosis as seen on 10/29/2024 CT. 2. Right renal cortical simple appearing cyst. 3. Bilateral nonobstructing renal calculi as seen on CT. [facility], , 10/31/2024 2:21 PM
[2024-10-31 17:01] LABS: Glucose,Whole Blood 171 mg/dL (70-110)
[2024-10-31 19:27] LABS: African American GFR (CKD) 37 (>60 ml/min/1.73 sqM); Anion Gap 12 mmol/L; Blood Urea Nitrogen 31 mg/dL (9-20); Calcium 10.1 mg/dL (8.4-10.2); Carbon Dioxide 15 mmol/L (22-30); Chloride 113 mmol/L (98-107); Glucose 154 mg/dL (74-99); Non-African American GFR(CKD) 32 (>60 ml/min/1.73 sqM); Potassium 3.9 mmol/L (3.5-5.1); Sodium 140 mmol/L (137-145)
[2024-10-31 20:46] LABS: Glucose,Whole Blood 146 mg/dL (70-110)
[2024-11-01 06:21] LABS: Glucose,Whole Blood 98 mg/dL (70-110)
[2024-11-01 11:42] LABS: Glucose,Whole Blood 124 mg/dL (70-110)
[2024-11-01 12:56] LABS: ALT 14 U/L (10-49); AST 21 U/L (14-35); Albumin 3.9 g/dL (3.8-4.9); Albumin/Globulin Ratio 1.44 Ratio (1.60-3.17); Alkaline Phosphatase 83 U/L (41-126); BUN/Creat Ratio 12.57 Ratio (12.00-20.00); Blood Urea Nitrogen 26.4 mg/dL (9.0-27.0); Carbon Dioxide 14.9 mmol/L (21.6-31.8); Chloride 116 mmol/L (96-109); Globulin 2.7 g/dL (1.6-3.3); Glucose 107 mg/dL (70-110); Potassium 4.4 mmol/L (3.5-5.5); Sodium 144 mmol/L (135-145); Total Bilirubin <0.2 mg/dL (0.3-1.2); Total Protein 6.6 g/dL (6.2-8.2)
--- NOTE | 2024-11-01 13:04 | P.PN ---
Subjective Progress Note Date: 11/01/24 H&P Date: 10/29/24 Chief Complaint: abd pain, hematuria pt prsented to er with flank pain abd pain , hematuria, consistant with renal colic,LURDES, and renal calculi, because there is no services available, this weekend this pt is apparently being transfered to [facility], currently waiting on transfer services. 10/30/2024 renal calculi, Accute kidney inj as above agressive pain management pt does not wish to be transfered case discussed with pt and to see pt on thursday continue current care Progress Note Date: 10/31/24 October 31, 2024: Dillan was reevaluated today for his acute renal failure, obstructing nephrolithiasis and hydronephrosis. He reports pain continues to be colicky, but controlled with medication. He has Tylenol, hydrocodone, and morphine ordered if needed. Denies any chest pain pressure shortness of breath nausea or vomiting at this time. Urology is unavailable till November 02, 2024. He remains afebrile, heart rate respiratory blood pressure controlled. He is anemic with hemoglobin of 9.3. Chemistries are normal except the GFR. It is up from 28 is now 31. Glucose remained controlled with sliding scale. He has a history of CVA. 11/01/2024 ultrasound of kidneys/renal bladder completed yesterday reporting mild right hydronephrosis as previously seen on 10/29/2024, right renal cortical simple appearing cyst, bilateral nonobstructing renal calculi as seen on prior CT. no urology services available at this site until tomorrow the . Initially on admission, transfer had been initiated to facilitate urology evaluation, but patient declined transfer. Positive diet intake with no nausea or vomiting. currently complaining of diffuse abdominal cramping sensation more so on the right. Maintained on IV fluid hydration at 75 mL/h. Afebrile. Labs pending. Objective - Vital Signs Vital signs: Vital Signs Temp 98.3 F 11/01/24 06:57 Pulse 60 11/01/24 06:57 Resp 18 11/01/24 06:57 BP 137/83 11/01/24 06:57 Pulse Ox 98 11/01/24 06:57 FiO2 Intake & Output 10/31/24 11/01/24 11/01/24 18:59 06:59 18:59 Output Total 400 800 Balance -400 -800 Output: Urine 400 Stool 400 400 Other: # Voids 2 - Exam General:alert and oriented x 3, no acute distress. Neck: neck is supple, no JVD. Cardiovascular: S1S2 is normal, There is a regular rate and rhythm. No murmur, rub or gallop is appreciated. Respiratory: Unlabored, equal air entry ,lungs are clear to auscultation. Gastrointestinal: Soft, non-distended, right lateral mid lower quadrant/flank tenderness. no rebound or guarding present. Ostomy present, +Bowel sounds. EXTREM: no pedal edema. There is no calf tenderness or swelling. Neurological: CN II-XII intact, no focal deficit. Strength and sensation grossly intact: Right-sided residual weakness from prior CVA. Skin: Skin is warm and dry, no rashes noted. - Labs CBC & Chem 7: 10/31/24 10:44 11/01/24 07:17 Labs: Abnormal Lab Results - Last 24 Hours (Table) 10/31/24 10/31/24 10/31/24 Range/Units 10:44 10:44 17:00 RBC 3.29 L (4.30-5.90) m/uL Hgb 9.3 L D (13.0-17.5) gm/dL Hct 29.7 L (39.0-53.0) % Chloride 114 H (98-107) mmol/L Carbon Dioxide 15 L (22-30) mmol/L BUN 33 H (9-20) mg/dL Creatinine 2.18 H (0.66-1.25) mg/dL Glucose 139 H (74-99) mg/dL POC Glucose (mg/dL) 171 H (70-110) mg/dL 10/31/24 10/31/24 Range/Units 18:30 20:43 RBC (4.30-5.90) m/uL Hgb (13.0-17.5) gm/dL Hct (39.0-53.0) % Chloride 113 H (98-107) mmol/L Carbon Dioxide 15 L (22-30) mmol/L BUN 31 H (9-20) mg/dL Creatinine 2.13 H (0.66-1.25) mg/dL Glucose 154 H (74-99) mg/dL POC Glucose (mg/dL) 146 H (70-110) mg/dL Assessment and Plan Assessment: (1) Hydronephrosis concurrent with and due to calculi of kidney and ureter Current Visit: Yes Status: Acute Code(s): N13.2 - HYDRONEPHROSIS WITH RENAL AND URETERAL CALCULOUS OBSTRUCTION SNOMED Code(s): 972843562 (2) Type 2 diabetes mellitus with other circulatory complications Current Visit: Yes Status: Acute Code(s): E11.59 - TYPE 2 DIABETES MELLITUS WITH OTH CIRCULATORY COMPLICATIONS SNOMED Code(s): 62587804 (3) Essential (primary) hypertension Current Visit: Yes Status: Acute Code(s): I10 - ESSENTIAL (PRIMARY) HYPERTENSION SNOMED Code(s): 07406281 (4) Mixed hyperlipidemia Current Visit: Yes Status: Acute Code(s): E78.2 - MIXED HYPERLIPIDEMIA SNOMED Code(s): 370571872 (5) Type 2 diabetes mellitus with other specified complication Current Visit: Yes Status: Acute Code(s): E11.69 - TYPE 2 DIABETES MELLITUS WITH OTHER SPECIFIED COMPLICATION SNOMED Code(s): 02937264 (6) LURDES (acute kidney injury) Current Visit: Yes Status: Acute Code(s): N17.9 - ACUTE KIDNEY FAILURE, UNSPECIFIED SNOMED Code(s): 68570227 (7) Renal calculus, bilateral Current Visit: Yes Status: Acute Code(s): N20.0 - CALCULUS OF KIDNEY SNOMED Code(s): 58997615 (8) Abdominal pain Current Visit: No Status: Acute Code(s): R10.9 - UNSPECIFIED ABDOMINAL PAIN SNOMED Code(s): 13397157 Plan: Continue on current medication regimen ,monitoring and symptomatic treatment. Pain management .maintain IV fluid hydration. Labs pending. Close monitoring of renal function with serial BMP ordered q 12h. as mentioned previously no urology services at this site until tomorrow, patient declined transfer. The impression and plan of care has been dictated as directed. : I performed a history and examination of this patient, discussed the same with the dictator. I agree with the dictator's note ,documented as a scribe. Any ad ditional findings or plans will be noted.
[2024-11-01 17:09] LABS: Glucose,Whole Blood 114 mg/dL (70-110)
[2024-11-01 20:45] LABS: Glucose,Whole Blood 126 mg/dL (70-110)
[2024-11-02 02:37] LABS: BUN/Creat Ratio 11.19 Ratio (12.00-20.00); Blood Urea Nitrogen 23.5 mg/dL (9.0-27.0); Calcium 9.6 mg/dL (8.7-10.3); Carbon Dioxide 12.7 mmol/L (21.6-31.8); Chloride 116 mmol/L (96-109); Glucose 119 mg/dL (70-110); Potassium 4.4 mmol/L (3.5-5.5); Sodium 143 mmol/L (135-145)
[2024-11-02 06:04] LABS: Glucose,Whole Blood 119 mg/dL (70-110)
--- NOTE | 2024-11-02 09:20 | P.PN ---
Subjective Progress Note Date: 11/02/24 H&P Date: 10/29/24 Chief Complaint: abd pain, hematuria pt prsented to er with flank pain abd pain , hematuria, consistant with renal colic,LURDES, and renal calculi, because there is no services available, this weekend this pt is apparently being transfered to [facility], currently waiting on transfer services. 10/30/2024 renal calculi, Accute kidney inj as above agressive pain management pt does not wish to be transfered case discussed with pt and to see pt on thursday continue current care Progress Note Date: 10/31/24 October 31, 2024: Dillan was reevaluated today for his acute renal failure, obstructing nephrolithiasis and hydronephrosis. He reports pain continues to be colicky, but controlled with medication. He has Tylenol, hydrocodone, and morphine ordered if needed. Denies any chest pain pressure shortness of breath nausea or vomiting at this time. Urology is unavailable till November 02, 2024. He remains afebrile, heart rate respiratory blood pressure controlled. He is anemic with hemoglobin of 9.3. Chemistries are normal except the GFR. It is up from 28 is now 31. Glucose remained controlled with sliding scale. He has a history of CVA. 11/01/2024 ultrasound of kidneys/renal bladder completed yesterday reporting mild right hydronephrosis as previously seen on 10/29/2024, right renal cortical simple appearing cyst, bilateral nonobstructing renal calculi as seen on prior CT. no urology services available at this site until tomorrow the . Initially on admission, transfer had been initiated to facilitate urology evaluation, but patient declined transfer. Positive diet intake with no nausea or vomiting. currently complaining of diffuse abdominal cramping sensation more so on the right. Maintained on IV fluid hydration at 75 mL/h. Afebrile. Labs pending. 11/02/2024 labs pending. Patient was seen and evaluated by urology. They are tentatively planning surgery unilaterally for kidney stone removal. They will then plan outpatient procedure. Dillan denies any other complaints today. His pain is present but controlled. He denies any nausea vomiting chest pain pressure shortness of breath. He is tolerating his diet. Continues on IV fluid hydration. Objective - Vital Signs Vital signs: Vital Signs Temp 99.0 F 11/02/24 06:42 Pulse 75 11/02/24 06:42 Resp 18 11/02/24 06:42 BP 162/93 11/02/24 06:42 Pulse Ox 96 11/02/24 06:42 FiO2 Intake & Output 11/01/24 11/02/24 11/02/24 18:59 06:59 18:59 Output Total 1800 Balance -1800 Output: Urine 1400 Stool 400 Other: # Voids 3 # Bowel Movements 0 - Exam General:alert and oriented x 3, no acute distress. Neck: neck is supple, no JVD. Cardiovascular: S1S2 is normal, There is a regular rate and rhythm. No murmur, rub or gallop is appreciated. Respiratory: Unlabored, equal air entry ,lungs are clear to auscultation. Gastrointestinal: Soft, non-distended, right lateral mid lower quadrant/flank tenderness. no rebound or guarding present. Ostomy present, +Bowel sounds. EXTREM: no pedal edema. There is no calf tenderness or swelling. Neurological: CN II-XII intact, no focal deficit. Strength and sensation grossly intact: Right-sided residual weakness from prior CVA. Skin: Skin is warm and dry, no rashes noted. - Labs CBC & Chem 7: 10/31/24 10:44 11/02/24 07:46 Labs: Abnormal Lab Results - Last 24 Hours (Table) 11/01/24 11/01/24 11/01/24 Range/Units 07:17 11:40 16:58 Chloride 116 H (96-109) mmol/L Carbon Dioxide 14.9 L (21.6-31.8) mmol/L Anion Gap 13.10 H (4.00-12.00) mmol/L Creatinine 2.1 H (0.6-1.5) mg/dL Est GFR (CKD-EPI) 35 L (>=60) BUN/Creatinine Ratio (12.00-20.00) Ratio Glucose (70-110) mg/dL POC Glucose (mg/dL) 124 H 114 H (70-110) mg/dL Total Bilirubin <0.2 L (0.3-1.2) mg/dL Albumin/Globulin Ratio 1.44 L (1.60-3.17) Ratio 11/01/24 11/01/24 11/02/24 Range/Units 18:20 20:44 06:03 Chloride 116 H (96-109) mmol/L Carbon Dioxide 12.7 L (21.6-31.8) mmol/L Anion Gap 14.30 H (4.00-12.00) mmol/L Creatinine 2.1 H (0.6-1.5) mg/dL Est GFR (CKD-EPI) 35 L (>=60) BUN/Creatinine Ratio 11.19 L (12.00-20.00) Ratio Glucose 119 H (70-110) mg/dL POC Glucose (mg/dL) 126 H 119 H (70-110) mg/dL Total Bilirubin (0.3-1.2) mg/dL Albumin/Globulin Ratio (1.60-3.17) Ratio Assessment and Plan Assessment: (1) Hydronephrosis concurrent with and due to calculi of kidney and ureter Current Visit: Yes Status: Acute Code(s): N13.2 - HYDRONEPHROSIS WITH RENAL AND URETERAL CALCULOUS OBSTRUCTION SNOMED Code(s): 145990944 (2) Type 2 diabetes mellitus with other circulatory complications Current Visit: Yes Status: Acute Code(s): E11.59 - TYPE 2 DIABETES MELLITUS WITH OTH CIRCULATORY COMPLICATIONS SNOMED Code(s): 66109427 (3) Essential (primary) hypertension Current Visit: Yes Status: Acute Code(s): I10 - ESSENTIAL (PRIMARY) HYPERTENSION SNOMED Code(s): 08678288 (4) Mixed hyperlipidemia Current Visit: Yes Status: Acute Code(s): E78.2 - MIXED HYPERLIPIDEMIA SNOMED Code(s): 464206537 (5) Type 2 diabetes mellitus with other specified complication Current Visit: Yes Status: Acute Code(s): E11.69 - TYPE 2 DIABETES MELLITUS WITH OTHER SPECIFIED COMPLICATION SNOMED Code(s): 61977551 (6) LURDES (acute kidney injury) Current Visit: Yes Status: Acute Code(s): N17.9 - ACUTE KIDNEY FAILURE, UNSPECIFIED SNOMED Code(s): 58499116 (7) Renal calculus, bilateral Current Visit: Yes Status: Acute Code(s): N20.0 - CALCULUS OF KIDNEY SNOMED Code(s): 38404760 (8) Abdominal pain Current Visit: No Status: Acute Code(s): R10.9 - UNSPECIFIED ABDOMINAL PAIN SNOMED Code(s): 81888655 Plan: Continue on current medication regimen ,monitoring and symptomatic treatment. Urology evaluation/recommendations pending. Labs pending. maintain IV fluid hydration. Pain management. Close monitoring of renal function with serial BMP ordered q 12h. Await upcoming urology procedure most likely tomorrow 11/03/2024. The impression and plan of care has been dictated as directed. : I performed a history and examination of this patient, discussed the same with the dictator. I agree with the dictator's note ,documented as a scribe. Any additional findings or plans will be noted.
[2024-11-02 10:38] LABS: Blood Urea Nitrogen 21.2 mg/dL (9.0-27.0); Calcium 9.3 mg/dL (8.7-10.3); Carbon Dioxide 13.5 mmol/L (21.6-31.8); Chloride 116 mmol/L (96-109); Glucose 118 mg/dL (70-110); Potassium 3.9 mmol/L (3.5-5.5); Sodium 141 mmol/L (135-145)
[2024-11-02 11:13] LABS: Glucose,Whole Blood 122 mg/dL (70-110)
--- NOTE | 2024-11-02 11:33 | XR ---
EXAMINATION TYPE: XR KUB DATE OF EXAM: 11/02/2024 10:52 AM COMPARISON: CT CLINICAL INDICATION: Male, 64 years old with history of Ureteral calculus; [facility] TECHNIQUE: One radiographic view of the abdomen was obtained. FINDINGS: The bowel gas pattern is nonspecific without dilated loops of small or large bowel. . Fecal material and gas are demonstrated throughout the colon and rectum. There is no evidence for organome geneva or pneumoperitoneum. Right ureteral pelvic junction calculus seen on prior CT not definitively visualized possibly due to overlying the spine. No abnormal calcifications are present. IMPRESSION: Right ureter pelvic junction calculus is poorly visualized possibly due to overlying the spine. Consi robert follow-up CT. [facility], , 11/02/2024 11:31 AM
[2024-11-02] MEDS: ACETAMINOPHEN TAB 325 MG TAB PO PRN (14:41)
[2024-11-02 16:53] LABS: Glucose,Whole Blood 138 mg/dL (70-110)
[2024-11-02 18:20] LABS: African American GFR (CKD) 40 (>60 ml/min/1.73 sqM); Anion Gap 12 mmol/L; Blood Urea Nitrogen 23 mg/dL (9-20); Calcium 9.8 mg/dL (8.4-10.2); Carbon Dioxide 11 mmol/L (22-30); Chloride 116 mmol/L (98-107); Glucose 122 mg/dL (74-99); Non-African American GFR(CKD) 35 (>60 ml/min/1.73 sqM); Potassium 4.4 mmol/L (3.5-5.1); Sodium 139 mmol/L (137-145)
[2024-11-02 20:29] LABS: Glucose,Whole Blood 142 mg/dL (70-110)
--- NOTE | 2024-11-02 22:24 | P.GSCN ---
History of Present Illness Consult date: 11/02/24 Reason for Consult: Right renal colic Requesting physician: Андрей Perez History of present illness: The patient is a 64-year-old black male who underwent a colectomy approximately 1 year ago due to intractable lower GI bleeding. He has an ileostomy, and recently presented with right renal colic. CT scan shows evidence of right hydronephrosis due to a 1 cm right UPJ calculus. Additional right renal calculi are seen. He denies any prior history of urolithiasis. He has been treated for UTIs in the past. Review of Systems - Constitutional Denies chills, Denies fever - Genitourinary Reports dysuria, Reports flank pain, Reports hematuria, Reports kidney stones Past Medical History Past Medical History: CVA/TIA, Diabetes Mellitus, Hyperlipidemia, Hypertension, Sleep Apnea/CPAP/BIPAP Additional Past Medical History / Comment(s): uses CPAP, CEREBRAL BLEED 08/19/22 RIGHT SIDE WEAKNESS History of Any Multi-Drug Resistant Organisms: None Reported Past Surgical History: Bowel Resection, Heart Catheterization, Hernia Repair Additional Past Surgical History / Comment(s): Colostomy, colonoscopy Past Anesthesia/Blood Transfusion Reactions: No Reported Reaction Past Psychological History: Depression Smoking Status: Former smoker Past Alcohol Use History: Occasional Additional Past Alcohol Use History / Comment(s): STARTED SMOKING AT AGE 21 QUIT SMOKING AT AGE 37 SMOKED LESS THAN 1 PACK A MONTH Past Drug Use History: None Reported - Past Family History Sister(s) Family Medical History: Cancer Additional Family Medical History / Comment(s): 1 SISTER FROM ESOPHAGEL CANCER. 1 SISTER HAD BREAST CANCER Medications and Allergies Home Medications Medication Instructions Recorded Confirmed Type Atorvastatin [Lipitor] 80 mg PO DAILY 12/20/21 10/29/24 History Gabapentin [Neurontin] 100 mg PO TID 12/20/21 10/29/24 History Pantoprazole [Protonix] 40 mg PO DAILY 12/20/21 10/29/24 History metFORMIN HCL 500 mg PO BID 12/20/21 10/29/24 History Baclofen 5 mg PO BID 10/25/23 10/29/24 History Dicyclomine [Bentyl] 10 mg PO TID 10/25/23 10/29/24 History Loperamide [Imodium] 2 mg PO QID 10/25/23 10/29/24 History Apixaban [Eliquis] 5 mg PO BID 11/27/23 10/29/24 History Ondansetron [Zofran] 8 mg PO TID 11/27/23 10/29/24 History carvediloL [Coreg] 6.25 mg PO BID 11/27/23 10/29/24 History droNABinol [Marinol] 2.5 mg PO BID 11/27/23 10/29/24 History lisinopriL [Zestril] 5 mg PO DAILY PRN 11/27/23 10/29/24 History Cholecalciferol (Vitamin D3) 1,250 mcg PO WEEKLY 10/29/24 10/29/24 History [Vitamin D3 (1250 Mcg = 50,000 Iu)] Insulin Lispro [humaLOG Kwikpen] See Protocol SQ AC-TID 10/29/24 10/29/24 History Megestrol [Megace] 400 mg PO AC-BID 10/29/24 10/29/24 History Sertraline [Zoloft] 100 mg PO TID 10/29/24 10/29/24 History Sucralfate [Carafate] 1 gm PO AC-BID 10/29/24 10/29/24 History Allergies Allergy/AdvReac Type Severity Reaction Status Date / Time No Known Allergies Allergy Verified 10/29/24 15:14 Surgical - Exam Vital Signs Temp Pulse Resp BP Pulse Ox 97.9 F 95 18 116/77 97 10/28/24 22:07 10/28/24 22:07 10/28/24 22:07 10/28/24 22:07 10/28/24 22:07 - General well developed, well nourished, no distress - Respiratory normal respiratory effort - Abdomen Soft, non-tender, non-distended. Right-sided ileostomy. - Genitourinary normal penis with no external lesions, testicles non-tender - Psychiatric oriented to time, oriented to person, oriented to place, speech is normal, memory intact Results - Labs 10/31/24 10:44 11/02/24 17:45 Abnormal Lab Results - Last 24 Hours (Table) 11/01/24 11/02/24 11/02/24 Range/Units 18:20 06:03 07:46 Chloride 116 H 116 H (96-109) mmol/L Carbon Dioxide 12.7 L 13.5 L (21.6-31.8) mmol/L Anion Gap 14.30 H (4.00-12.00) mmol/L BUN (9-20) mg/dL Creatinine 2.1 H 2.0 H (0.6-1.5) mg/dL Est GFR (CKD-EPI) 35 L 37 L (>=60) BUN/Creatinine Ratio 11.19 L 10.60 L (12.00-20.00) Ratio Glucose 119 H 118 H (70-110) mg/dL POC Glucose (mg/dL) 119 H (70-110) mg/dL 11/02/24 11/02/24 11/02/24 Range/Units 11:12 16:50 17:45 Chloride 116 H (96-109) mmol/L Carbon Dioxide 11 L (21.6-31.8) mmol/L Anion Gap (4.00-12.00) mmol/L BUN 23 H (9-20) mg/dL Creatinine 1.99 H (0.6-1.5) mg/dL Est GFR (CKD-EPI) (>=60) BUN/Creatinine Ratio (12.00-20.00) Ratio Glucose 122 H (70-110) mg/dL POC Glucose (mg/dL) 122 H 138 H (70-110) mg/dL 11/02/24 Range/Units 20:28 Chloride (96-109) mmol/L Carbon Dioxide (21.6-31.8) mmol/L Anion Gap (4.00-12.00) mmol/L BUN (9-20) mg/dL Creatinine (0.6-1.5) mg/dL Est GFR (CKD-EPI) (>=60) BUN/Creatinine Ratio (12.00-20.00) Ratio Glucose (70-110) mg/dL POC Glucose (mg/dL) 142 H (70-110) mg/dL Diabetes panel 11/01/24 11/02/24 11/02/24 Range/Units 18:20 07:46 17:45 Sodium 143 141 139 (135-145) mmol/L Potassium 4.4 3.9 4.4 (3.5-5.5) mmol/L Chloride 116 H 116 H 116 H (96-109) mmol/L Carbon Dioxide 12.7 L 13.5 L 11 L (21.6-31.8) mmol/L BUN 23.5 21.2 23 H (9.0-27.0) mg/dL Creatinine 2.1 H 2.0 H 1.99 H (0.6-1.5) mg/dL Glucose 119 H 118 H 122 H (70-110) mg/dL Calcium 9.6 9.3 9.8 (8.7-10.3) mg/dL Calcium panel 11/01/24 11/02/24 11/02/24 Range/Units 18:20 07:46 17:45 Calcium 9.6 9.3 9.8 (8.7-10.3) mg/dL Pituitary panel 11/01/24 11/02/24 11/02/24 Range/Units 18:20 07:46 17:45 Sodium 143 141 139 (135-145) mmol/L Potassium 4.4 3.9 4.4 (3.5-5.5) mmol/L Chloride 116 H 116 H 116 H (96-109) mmol/L Carbon Dioxide 12.7 L 13.5 L 11 L (21.6-31.8) mmol/L BUN 23.5 21.2 23 H (9.0-27.0) mg/dL Creatinine 2.1 H 2.0 H 1.99 H (0.6-1.5) mg/dL Glucose 119 H 118 H 122 H (70-110) mg/dL Calcium 9.6 9.3 9.8 (8.7-10.3) mg/dL Adrenal panel 11/01/24 11/02/24 11/02/24 Range/Units 18:20 07:46 17:45 Sodium 143 141 139 (135-145) mmol/L Potassium 4.4 3.9 4.4 (3.5-5.5) mmol/L Chloride 116 H 116 H 116 H (96-109) mmol/L Carbon Dioxide 12.7 L 13.5 L 11 L (21.6-31.8) mmol/L BUN 23.5 21.2 23 H (9.0-27.0) mg/dL Creatinine 2.1 H 2.0 H 1.99 H (0.6-1.5) mg/dL Glucose 119 H 118 H 122 H (70-110) mg/dL Calcium 9.6 9.3 9.8 (8.7-10.3) mg/dL - Imaging Abdominal x-ray: report reviewed, image reviewed CT scan - abdomen: report reviewed, image reviewed Assessment and Plan (1) Renal calculi Current Visit: Yes Status: Acute Code(s): N20.0 - CALCULUS OF KIDNEY SNOMED Code(s): 34584358 (2) Calculus of ureter Current Visit: Yes Status: Acute Code(s): N20.1 - CALCULUS OF URETER SNOMED Code(s): 21852332 (3) Hydronephrosis concurrent with and due to calculi of kidney and ureter Current Visit: Yes Status: Acute Code(s): N13.2 - HYDRONEPHROSIS WITH RENAL AND URETERAL CALCULOUS OBSTRUCTION SNOMED Code(s): 448063147 Plan: Cystoscopy, right ureteroscopy with holmium laser lithotripsy and stone basketing, right ureteral stent insertion. The procedure has been reviewed in detail with the patient and his . They have been made aware of potential risks, which include anesthesia, bleeding, infection, and ureteral injury. Given the stone burden, they are aware of the need for a secondary procedure. Time with Patient: Greater than 30
[2024-11-03 06:19] LABS: Glucose,Whole Blood 98 mg/dL (70-110)
[2024-11-03 09:24] LABS: BUN/Creat Ratio 9.71 Ratio (12.00-20.00); Blood Urea Nitrogen 20.4 mg/dL (9.0-27.0); Calcium 9.4 mg/dL (8.7-10.3); Carbon Dioxide 13.4 mmol/L (21.6-31.8); Chloride 117 mmol/L (96-109); Glucose 98 mg/dL (70-110); Potassium 4.2 mmol/L (3.5-5.5); Sodium 142 mmol/L (135-145)
[2024-11-03] MEDS ORDERED: LIDOCAINE 1% (10MG/ML) FOR IV START INTRADERMA PRN (09:55)
[2024-11-03] MEDS ORDERED: HYDROmorphone 0.5 MG/0.5 ML SYRINGE IVP PRN (09:55)
[2024-11-03] MEDS ORDERED: fentaNYL (PF) 50 MCG/ML 2 ML AMP IVP PRN (09:55)
[2024-11-03] MEDS ORDERED: MIDAZOLAM 2 MG/2 ML VIAL IV PRN (09:55)
--- NOTE | 2024-11-03 11:32 | P.PN ---
Subjective H&P Date: 10/29/24 Chief Complaint: abd pain, hematuria pt prsented to er with flank pain abd pain , hematuria, consistant with renal colic,LURDES, and renal calculi, because there is no services available, this weekend this pt is apparently being transfered to [facility], currently waiting on transfer services. 10/30/2024 renal calculi, Accute kidney inj as above agressive pain management pt does not wish to be transfered case discussed with pt and to see pt on thursday continue current care Progress Note Date: 10/31/24 October 31, 2024: Dillan was reevaluated today for his acute renal failure, obstructing nephrolithiasis and hydronephrosis. He reports pain continues to be colicky, but controlled with medication. He has Tylenol, hydrocodone, and morphine ordered if needed. Denies any chest pain pressure shortness of breath nausea or vomiting at this time. Urology is unavailable till November 02, 2024. He remains afebrile, heart rate respiratory blood pressure controlled. He is anemic with hemoglobin of 9.3. Chemistries are normal except the GFR. It is up from 28 is now 31. Glucose remained controlled with sliding scale. He has a history of CVA. 11/01/2024 ultrasound of kidneys/renal bladder completed yesterday reporting mild right hydronephrosis as previously seen on 10/29/2024, right renal cortical simple appearing cyst, bilateral nonobstructing renal calculi as seen on prior CT. no urology services available at this site until tomorrow the . Initially on admission, transfer had been initiated to facilitate urology evaluation, but patient declined transfer. Positive diet intake with no nausea or vomiting. currently complaining of diffuse abdominal cramping sensation more so on the right. Maintained on IV fluid hydration at 75 mL/h. Afebrile. Labs pending. 11/02/2024 labs pending. Patient was seen and evaluated by urology. They are tentatively planning surgery unilaterally for kidney stone removal. They will then plan outpatient procedure. Dillan denies any other complaints today. His pain is present but controlled. He denies any nausea vomiting chest pain pressure shortness of breath. He is tolerating his diet. Continues on IV fluid hydration. 11/03/2024: Patient is reevaluated. Urology is planning cystoscopy, right ureteroscopy with holmium laser lithotripsy and stone basketing along with a right ureteral stent insertion. This hopefully will be done today at 130. He will be reevaluated postoperatively and once cleared by urology will be discharged home which may be tomorrow. Today he has no complaints. His pain is colicky but controlled. He denies any chest pains, pressures, shortness breath, nausea or vomiting. Vital signs are stable. He is afebrile. Labs are stable at the kidney function with a creatinine now 2.1 and a GFR of 35. Objective - Vital Signs Vital signs: Vital Signs Temp 98.5 F 11/03/24 07:50 Pulse 75 11/03/24 07:50 Resp 18 11/03/24 07:50 BP 129/87 11/03/24 07:50 Pulse Ox 96 11/03/24 07:50 FiO2 Intake & Output 11/02/24 11/03/24 11/03/24 18:59 06:59 18:59 Output Total 1650 Balance -1650 Output: Urine 850 Stool 400 Urine/Stool Mix 400 Other: Voiding Method Urinal Urinal # Voids 3 # Bowel Movements 2 - Exam General:alert and oriented x 3, no acute distress. Neck: neck is supple, no JVD. Cardiovascular: S1S2 is normal, There is a regular rate and rhythm. No murmur, rub or gallop is appreciated. Respiratory: Unlabored, equal air entry ,lungs are clear to auscultation. Gastrointestinal: Soft, non-distended, right lateral mid lower quadrant/flank tenderness. no rebound or guarding present. Ostomy present, +Bowel sounds. EXTREM: no pedal edema. There is no calf tenderness or swelling. Neurological: CN II-XII intact, no focal deficit. Strength and sensation grossly intact: Right-sided residual weakness from prior CVA. Skin: Skin is warm and dry, no rashes noted. - Labs CBC & Chem 7: 10/31/24 10:44 11/03/24 05:39 Labs: Abnormal Lab Results - Last 24 Hours (Table) 11/02/24 11/02/24 11/02/24 Range/Units 16:50 17:45 20:28 Chloride 116 H (98-107) mmol/L Carbon Dioxide 11 L (22-30) mmol/L BUN 23 H (9-20) mg/dL Creatinine 1.99 H (0.66-1.25) mg/dL Est GFR (CKD-EPI) (>=60) BUN/Creatinine Ratio (12.00-20.00) Ratio Glucose 122 H (74-99) mg/dL POC Glucose (mg/dL) 138 H 142 H (70-110) mg/dL 11/03/24 Range/Units 05:39 Chloride 117 H (98-107) mmol/L Carbon Dioxide 13.4 L (22-30) mmol/L BUN (9-20) mg/dL Creatinine 2.1 H (0.66-1.25) mg/dL Est GFR (CKD-EPI) 35 L (>=60) BUN/Creatinine Ratio 9.71 L (12.00-20.00) Ratio Glucose (74-99) mg/dL POC Glucose (mg/dL) (70-110) mg/dL Assessment and Plan Assessment: (1) Hydronephrosis concurrent with and due to calculi of kidney and ureter Current Visit: Yes Status: Acute Code(s): N13.2 - HYDRONEPHROSIS WITH RENAL AND URETERAL CALCULOUS OBSTRUCTION SNOMED Code(s): 935886417 (2) Type 2 diabetes mellitus with other circulatory complications Current Visit: Yes Status: Acute Code(s): E11.59 - TYPE 2 DIABETES MELLITUS WITH OTH CIRCULATORY COMPLICATIONS SNOMED Code(s): 29021313 (3) Essential (primary) hypertension Current Visit: Yes Status: Acute Code(s): I10 - ESSENTIAL (PRIMARY) HYPERTENSION SNOMED Code(s): 77851026 (4) Mixed hyperlipidemia Current Visit: Yes Status: Acute Code(s): E78.2 - MIXED HYPERLIPIDEMIA SNOMED Code(s): 728811644 (5) Type 2 diabetes mellitus with other specified complication Current Visit: Yes Status: Acute Code(s): E11.69 - TYPE 2 DIABETES MELLITUS WITH OTHER SPECIFIED COMPLICATION SNOMED Code(s): 58616690 (6) LURDES (acute kidney injury) Current Visit: Yes Status: Acute Code(s): N17.9 - ACUTE KIDNEY FAILURE, UNSP ECIFIED SNOMED Code(s): 79653514 (7) Renal calculus, bilateral Current Visit: Yes Status: Acute Code(s): N20.0 - CALCULUS OF KIDNEY SNOMED Code(s): 71956629 (8) Abdominal pain Current Visit: No Status: Acute Code(s): R10.9 - UNSPECIFIED ABDOMINAL PAIN SNOMED Code(s): 60087744 Plan: Continue on current medication regimen ,monitoring and symptomatic treatment. Urology evaluation/recommendations pending. Labs pending. maintain IV fluid hydration. Pain management. Close monitoring of renal function with serial BMP ordered q 12h. Await upcoming urology procedure most likely tomorrow 11/03/2024. The impression and plan of care has been dictated as directed. : I performed a history and examination of this patient, discussed the same with the dictator. I agree with the dictator's note ,documented as a scribe. Any additional findings or plans will be noted. Plan: Awaiting procedure today. If he is medically stable after that he will be discharged home either later this afternoon or tomorrow depending on urology recommendations.
[2024-11-03 11:34] LABS: Glucose,Whole Blood 100 mg/dL (70-110)
[2024-11-03] MEDS: ONDANSETRON 4 MG/2 ML VIAL IVP ONE (12:16)
[2024-11-03] MEDS: DEXAMETHASONE SOD PHOSPHATE 4 MG/ML 1 ML VIAL IV ONE (12:16)
[2024-11-03] MEDS: LACTATED RINGERS 1,000 ML IV SCH (12:17)
[2024-11-03] MEDS: IV FLUID CONTINUATION 1,000 ML IV ONE (12:26)
--- NOTE | 2024-11-03 14:15 | FL ---
EXAMINATION TYPE: FL urography retrograde DATE OF EXAM: 11/03/2024 2:10 PM COMPARISON: Pre Operative Images if available both CT/MRI or plain film CLINICAL INDICATION: Male, 64 years old with history of Cysto for rt kidney stone; TECHNIQUE: FL urography retrograde, multiple fluoroscopic images provided for procedure. DAP: 0.60879 mGym2 Gycm2 uGym2 cGycm2 or equivalent. FINDINGS: Multiple intraoperative fluoroscopic images were taken resulting in ureteral stent placement with sup erior pigtail in appropriate position projecting over the renal pelvis. No immediate intraoperative c omplication. Multilevel degeneration changes throughout the spine. IMPRESSION: 1. No evidence for intraoperative complication. 2. Please see the operative/procedural note for further details. [facility], , 11/03/2024 2:13 PM
--- NOTE | 2024-11-03 14:27 | P.OP ---
Date of Procedure: 11/03/24 Preoperative Diagnosis: Right hydronephrosis secondary to right ureteral calculus, right renal calculi Postoperative Diagnosis: Same, bladder calculi Procedure(s) Performed: Cystoscopy with removal of bladder calculi, right retrograde pyelogram, right ureteral stent insertion Anesthesia: STACIA Surgeon: Gunnar Murdock Estimated Blood Loss (ml): 0 IV fluids (ml): 300 Pathology: other (Bladder calculus, sent for chemical analysis) Condition: stable Disposition: PACU Indications for Procedure: The patient is a 64-year-old black male who underwent a colectomy approximately 1 year ago due to intractable lower GI bleeding. He has an ileostomy, and recently presented with right renal colic. CT scan shows evidence of right hydronephrosis due to a 1 cm right UPJ calculus. Additional right renal calculi are seen. He denies any prior history of urolithiasis. He has been treated for UTIs in the past. Operative Findings: Multiple tiny bladder calculi presumed to be composed of uric acid. Radiolucent right UPJ calculus. Drainage of significant dark urine with particulate matter from the right renal pelvis. Description of Procedure: The patient was taken to the operating room and placed in the dorsolithotomy position, with legs supported in Sathya stirrups. The external genitalia was prepped and draped sterilely. The 30 lens was used to introduce the 21-Finnish Rousseau cystoscopic sheath through the urethra and into the bladder under direct vision. The prostatic urethra showed evidence of mild lateral lobe enlargement. The bladder was examined in its entirety. Both ureteral orifices were of normal anatomic location and configuration. No tumors were seen. Multiple tiny, gold calculi were seen measuring up to 2 mm in size. The bladder was irrigated multiple times to remove these. The largest was saved and sent for chemical analysis. Using a 10 Finnish cone-tip catheter, a right retrograde pyelogram was performed. The ureter was normal in course and caliber. The UPJ calculus was seen as a filling defect, and there was evidence of hydronephrosis. A 0.035 inch Glidewire was passed through the cystoscope. The right ureteral orifice was cannulated, and the Glidewire was slowly advanced up to the renal pelvis. A considerable amount of dark urine with particulate matter presumed to be old blood drained alongside the wire. The clinical impression is that the calculus is composed of uric acid, and that visualization within the renal pelvis would be poor. Therefore, a 28 cm, 6-Finnish double-J ureteral stent was placed over the wire. Proper stent positioning was verified fluoroscopically and endoscopically. A considerable amount of cloudy urine drained through the stent. It should be noted that this urine was not purulent in appearance. The bladder was emptied and the cystoscope removed. The patient tolerated the procedure well and was taken to the recovery room in stable condition.
[2024-11-03] MEDS: TAMSULOSIN 0.4 MG CAP.ER.24H PO SCH (15:33)
[2024-11-03] MEDS: lisinopriL 5 MG TAB PO PRN (16:13)
[2024-11-03 16:58] LABS: Glucose,Whole Blood 149 mg/dL (70-110)
[2024-11-03 17:52] LABS: African American GFR (CKD) 39 (>60 ml/min/1.73 sqM); Anion Gap 12 mmol/L; Blood Urea Nitrogen 20 mg/dL (9-20); Calcium 10.2 mg/dL (8.4-10.2); Carbon Dioxide 12 mmol/L (22-30); Chloride 117 mmol/L (98-107); Glucose 143 mg/dL (74-99); Non-African American GFR(CKD) 34 (>60 ml/min/1.73 sqM); Potassium 4.5 mmol/L (3.5-5.1); Sodium 141 mmol/L (137-145)
[2024-11-03 20:39] LABS: Glucose,Whole Blood 173 mg/dL (70-110)
[2024-11-04 06:17] LABS: Glucose,Whole Blood 104 mg/dL (70-110)
[2024-11-04 07:58] VITALS: RESP 18
[2024-11-04 08:27] LABS: BUN/Creat Ratio 10.18 Ratio (12.00-20.00); Blood Urea Nitrogen 22.4 mg/dL (9.0-27.0); Chloride 117 mmol/L (96-109); Glucose 113 mg/dL (70-110); Potassium 4.2 mmol/L (3.5-5.5); Sodium 144 mmol/L (135-145)
[2024-11-04 08:28] LABS: Calcium 9.7 mg/dL (8.7-10.3); Carbon Dioxide 13.7 mmol/L (21.6-31.8)
--- NOTE | 2024-11-04 10:17 | P.PN ---
Subjective Progress Note Date: 11/04/24 Principal diagnosis: Right hydronephrosis secondary to UPJ calculus The patient underwent cystoscopy with right ureteral stent insertion yesterday. Multiple small bladder calculi were seen, and it is presumed that the patient's calculi are of uric acid composition. Cola colored urine with debris drained from the right renal pelvis, so the planned ureteroscopy was aborted. He states that his urine remains dark, but he feels much better. Objective - Vital Signs Vital signs: Vital Signs Temp 98.5 F 11/04/24 01:38 Pulse 79 11/04/24 01:38 Resp 17 11/04/24 01:38 BP 137/81 11/04/24 01:38 Pulse Ox 97 11/04/24 01:38 FiO2 Intake & Output 11/03/24 11/04/24 11/04/24 18:59 06:59 18:59 Intake Total 700 Output Total 100 Balance 600 Intake: IV 700 Output: Stool 100 Estimated Blood Loss 0 Other: Voiding Method Urinal Urinal # Voids 2 3 - Constitutional General appearance: Present: average body habitus, cooperative, no acute distress - Psychiatric Psychiatric: Present: A&O x's 3 - Labs CBC & Chem 7: 10/31/24 10:44 11/04/24 05:54 Labs: Abnormal Lab Results - Last 24 Hours (Table) 11/03/24 11/03/24 11/03/24 Range/Units 05:39 16:57 17:28 Chloride 117 H 117 H (96-109) mmol/L Carbon Dioxide 13.4 L 12 L (21.6-31.8) mmol/L Creatinine 2.1 H 2.04 H (0.6-1.5) mg/dL Est GFR (CKD-EPI) 35 L (>=60) BUN/Creatinine Ratio 9.71 L (12.00-20.00) Ratio Glucose 143 H (74-99) mg/dL POC Glucose (mg/dL) 149 H (70-110) mg/dL 11/03/24 Range/Units 20:38 Chloride (96-109) mmol/L Carbon Dioxide (21.6-31.8) mmol/L Creatinine (0.6-1.5) mg/dL Est GFR (CKD-EPI) (>=60) BUN/Creatinine Ratio (12.00-20.00) Ratio Glucose (74-99) mg/dL POC Glucose (mg/dL) 173 H (70-110) mg/dL Assessment and Plan (1) Renal calculi Current Visit: Yes Status: Acute Code(s): N20.0 - CALCULUS OF KIDNEY SNOMED Code(s): 22858560 (2) Calculus of ureter Current Visit: Yes Status: Acute Code(s): N20.1 - CALCULUS OF URETER SNOMED Code(s): 67770391 (3) Hydronephrosis concurrent with and due to calculi of kidney and ureter Current Visit: Yes Status: Acute Code(s): N13.2 - HYDRONEPHROSIS WITH RENAL AND URETERAL CALCULOUS OBSTRUCTION SNOMED Code(s): 995725094 Plan: The patient is urologically stable for discharge. He has an upcoming trip planned to [place], and will follow-up with me upon return in about 3 weeks. By then, the results of stone analysis should be back. If he is confirmed to have uric acid calculi, he will be treated with urinary alkalinization. I believe that the patient's kidney stones are the results of his ileostomy, and he will ultimately require a formal metabolic evaluation.
[2024-11-04 10:31] LABS: Basophils # (A) 0.03 X 10*3/uL (0.00-0.10); Basophils % (A) 0.3 %; Eosinophils # (A) 0.07 X 10*3/uL (0.04-0.35); Eosinophils % (A) 0.6 %; HCT 30.2 % (39.6-50.0); HGB 9.7 g/dL (13.0-17.0); Lymphocytes # (A) 1.57 X 10*3/uL (0.90-5.00); Lymphocytes % (A) 13.7 %; MCH 28.7 pg (27.0-32.0); MCHC 32.1 g/dL (32.0-37.0); MCV 89.3 FL (80.0-97.0); Mean Platelet Volume 11.2 FL (9.5-12.2); Monocytes # (A) 0.71 X 10*3/uL (0.20-1.00); Monocytes % (A) 6.2 %; NRBC Per 100 WBC 0 X 10*3/uL (0.00-0.01); Neutrophils # (A) 9.05 X 10*3/uL (1.80-7.70); Neutrophils % (A) 78.6 %; Platelet Count 228 X 10*3/uL (140-440); RBC 3.38 X 10*6/uL (4.40-5.60)
[2024-11-04 11:11] LABS: Glucose,Whole Blood 164 mg/dL (70-110)
[2024-11-04 13:04] VITALS: BMI 26.2
[2024-11-04 15:07] VITALS: BP 145/83; PULSE 85; TEMP 98.9
--- NOTE | 2024-11-04 15:18 | P.DS ---
Providers Date of admission: 10/29/24 00:53 Expected date of discharge: 11/04/24 Attending physician: Berny Carranza Consults: 10/31/24 10:23 Consult Physician Routine Consulting Provider: Gunnar Murdock Consult Reason/Comments: Kidney stones Do you want consulting provider notified?: Yes Primary care physician: [facility] Course: October 31, 2024: Dillan was reevaluated today for his acute renal failure, obstructing nephrolithiasis and hydronephrosis. He reports pain continues to be colicky, but controlled with medication. He has Tylenol, hydrocodone, and morphine ordered if needed. Denies any chest pain pressure shortness of breath nausea or vomiting at this time. Urology is unavailable till November 02, 2024. He remains afebrile, heart rate respiratory blood pressure controlled. He is anemic with hemoglobin of 9.3. Chemistries are normal except the GFR. It is up from 28 is now 31. Glucose remained controlled with sliding scale. He has a history of CVA. 11/01/2024 ultrasound of kidneys/renal bladder completed yesterday reporting mild right hydronephrosis as previously seen on 10/29/2024, right renal cortical simple appearing cyst, bilateral nonobstructing renal calculi as seen on prior CT. no urology services available at this site until tomorrow the . Initially on admission, transfer had been initiated to facilitate urology evaluation, but patient declined transfer. Positive diet intake with no nausea or vomiting. currently complaining of diffuse abdominal cramping sensation more so on the right. Maintained on IV fluid hydration at 75 mL/h. Afebrile. Labs pending. 11/02/2024 labs pending. Patient was seen and evaluated by urology. They are tentatively planning surgery unilaterally for kidney stone removal. They will then plan outpatient procedure. Dillan denies any other complaints today. His pain is present but controlled. He denies any nausea vomiting chest pain pressure shortness of breath. He is tolerating his diet. Continues on IV fluid hydration. 11/03/2024: Patient is reevaluated. Urology is planning cystoscopy, right ureteroscopy with holmium laser lithotripsy and stone basketing along with a right ureteral stent insertion. This hopefully will be done today at 130. He will be reevaluated postoperatively and once cleared by urology will be discharged home which may be tomorrow. Today he has no complaints. His pain is colicky but controlled. He denies any chest pains, pressures, shortness breath, nausea or vomiting. Vital signs are stable. He is afebrile. Labs are stable at the kidney function with a creatinine now 2.1 and a GFR of 35. 11/04/2024: Patient is status post right ureteroscopy and is doing better. He has been cleared by urology for discharge. Patient Condition at Discharge: Stable Plan - Discharge Summary Discharge Rx Participant: No New Discharge Prescriptions: New Tamsulosin [Flomax] 0.4 mg PO DAILY #30 cap Acetaminophen Tab [Tylenol] 650 mg PO Q6HR PRN tab PRN Reason: Mild Pain Or Fever > 100.5 Tamsulosin [Flomax] 0.4 mg PO DAILY #30 cap HYDROcodone/APAP 10-325MG [Skipwith 10-325] 1 each PO Q6HR 7 Days #28 tab Continue Pantoprazole [Protonix] 40 mg PO DAILY Dicyclomine [Bentyl] 10 mg PO TID carvediloL [Coreg] 6.25 mg PO BID lisinopriL [Zestril] 5 mg PO DAILY PRN PRN Reason: SBP over 115 Insulin Lispro [humaLOG Kwikpen] See Protocol SQ AC-TID Sertraline [Zoloft] 100 mg PO TID metFORMIN HCL 500 mg PO BID Gabapentin [Neurontin] 100 mg PO TID Atorvastatin [Lipitor] 80 mg PO DAILY Baclofen 5 mg PO BID Loperamide [Imodium] 2 mg PO QID Ondansetron [Zofran] 8 mg PO TID droNABinol [Marinol] 2.5 mg PO BID Apixaban [Eliquis] 5 mg PO BID Megestrol [Megace] 400 mg PO AC-BID Sucralfate [Carafate] 1 gm PO AC-BID Cholecalciferol (Vitamin D3) [Vitamin D3 (1250 Mcg = 50,000 Iu)] 1,250 mcg PO WEEKLY Discharge Medication List Atorvastatin [Lipitor] 80 mg PO DAILY 12/20/21 [History] Gabapentin [Neurontin] 100 mg PO TID 12/20/21 [History] Pantoprazole [Protonix] 40 mg PO DAILY 12/20/21 [History] metFORMIN HCL 500 mg PO BID 12/20/21 [History] Baclofen 5 mg PO BID 10/25/23 [History] Dicyclomine [Bentyl] 10 mg PO TID 10/25/23 [History] Loperamide [Imodium] 2 mg PO QID 10/25/23 [History] Apixaban [Eliquis] 5 mg PO BID 11/27/23 [History] Ondansetron [Zofran] 8 mg PO TID 11/27/23 [History] carvediloL [Coreg] 6.25 mg PO BID 11/27/23 [History] droNABinol [Marinol] 2.5 mg PO BID 11/27/23 [History] lisinopriL [Zestril] 5 mg PO DAILY PRN 11/27/23 [History] Cholecalciferol (Vitamin D3) [Vitamin D3 (1250 Mcg = 50,000 Iu)] 1,250 mcg PO WEEKLY 10/29/24 [History] Insulin Lispro [humaLOG Kwikpen] See Protocol SQ AC-TID 10/29/24 [History] Megestrol [Megace] 400 mg PO AC-BID 10/29/24 [History] Sertraline [Zoloft] 100 mg PO TID 10/29/24 [History] Sucralfate [Carafate] 1 gm PO AC-BID 10/29/24 [History] Tamsulosin [Flomax] 0.4 mg PO DAILY #30 cap 11/03/24 [Rx] Acetaminophen Tab [Tylenol] 650 mg PO Q6HR PRN tab 11/04/24 [Rx] HYDROcodone/APAP 10-325MG [Skipwith 10-325] 1 each PO Q6HR 7 Days #28 tab 11/04/24 [Rx] Tamsulosin [Flomax] 0.4 mg PO DAILY #30 cap 11/04/24 [Rx] Follow up Appointment(s)/Referral(s): Gunnar Murdock MD [STAFF PHYSICIAN] - 3 Weeks Berny Carranza Jr, DO [Primary Care Provider] - 1-2 days Discharge Disposition: HOME SELF-CARE
[2024-11-05] MEDS ORDERED: ERGOCALCIFEROL 1,250 MCG (50,000 IU) CAPSULE PO SCH (09:00)
== END 2024-11-04 16:31 | disposition home or self-care (01) | DRG 660 ==
LOC: EC 22:06 → 4SSUR 10-29 00:53
PROVIDERS: ADMIT Family Medicine; ATTEND Family Medicine
PROC: 0TCB8ZZ Extirpation of Matter from Bladder, Via Natural or Artificial Opening Endoscopic (ICD-10-PCS; principal; 2024-11-03 13:30)
PROC: 0T768DZ Dilation of Right Ureter with Intraluminal Device, Via Natural or Artificial Opening Endoscopic (ICD-10-PCS; 2024-11-03 13:30)
PROC: BT1D1ZZ Fluoroscopy of Right Kidney, Ureter and Bladder using Low Osmolar Contrast (ICD-10-PCS; 2024-11-03 13:30)
DX: N13.2 Hydronephrosis with renal and ureteral calculous obstruction (principal); I69.351 Hemiplegia and hemiparesis following cerebral infarction affecting right dominant side; N17.9 Acute kidney failure, unspecified; D64.9 Anemia, unspecified; E11.59 Type 2 diabetes mellitus with other circulatory complications; E78.2 Mixed hyperlipidemia; I10 Essential (primary) hypertension; N21.0 Calculus in bladder; Z93.3 Colostomy status; Z79.4 Long term (current) use of insulin; Z93.2 Ileostomy status; Z79.01 Long term (current) use of anticoagulants; Z79.84 Long term (current) use of oral hypoglycemic drugs; Z79.899 Other long term (current) drug therapy; Z87.891 Personal history of nicotine dependence; Z90.49 Acquired absence of other specified parts of digestive tract; Z87.440 Personal history of urinary (tract) infections
CPT/HCPCS: 36415; 74018; 74176; 74420; 76770; 80048; 80053; 81001; 82365; 83605; 83690; 83735; 85025; 96361; 96374; 99285

== ENCOUNTER 2024-11-15 17:25 | Inpatient (IN) | payer OTHER, MEDICARE ==
--- NOTE | 2024-11-15 17:55 | ED ---
General Adult HPI - General Chief complaint: Altered Mental Status Stated complaint: lethargic, confusion Time Seen by Provider: 11/15/24 17:40 Source: patient, family, RN notes reviewed Mode of arrival: wheelchair Limitations: no limitations - History of Present Illness Initial comments: This is a 64-year-old male with a history of CVA and subsequent right sided deficits, hypertension, complicated diverticulitis with ostomy placement, and a.fib on eliquis, presenting to emergency room with for concerns of generalized weakness. states that patient has had a decrease in energy over the past few days in addition to decrease in ostomy and urinary output. Patient endorses dysuria and harlan hematuria over the past few days. He denies fevers, chills, nausea, vomiting, abdominal pain, flank pain, chest pain, difficulty in breathing, headaches, or new focal neurological deficits. states that patient has been mildly confused over the past few days. Patient recently had a lengthy admission to the hospital where he followed with urology and had urological stent placement due to multiple kidney stones. - Related Data Home Medications Medication Instructions Recorded Confirmed Atorvastatin [Lipitor] 80 mg PO DAILY 12/20/21 11/15/24 Gabapentin [Neurontin] 100 mg PO TID 12/20/21 11/15/24 Pantoprazole [Protonix] 40 mg PO DAILY 12/20/21 11/15/24 metFORMIN HCL 500 mg PO BID 12/20/21 11/15/24 Baclofen 5 mg PO BID 10/25/23 11/15/24 Dicyclomine [Bentyl] 10 mg PO TID 10/25/23 11/15/24 Loperamide [Imodium] 2 mg PO QID 10/25/23 11/15/24 Apixaban [Eliquis] 5 mg PO BID 11/27/23 11/15/24 Ondansetron [Zofran] 8 mg PO TID 11/27/23 11/15/24 carvediloL [Coreg] 6.25 mg PO BID 11/27/23 11/15/24 droNABinol [Marinol] 2.5 mg PO BID 11/27/23 11/15/24 lisinopriL [Zestril] 5 mg PO DAILY PRN 11/27/23 11/15/24 Cholecalciferol (Vitamin D3) 1,250 mcg PO WEEKLY 10/29/24 11/15/24 [Vitamin D3 (1250 Mcg = 50,000 Iu)] Insulin Lispro [humaLOG Kwikpen] See Protocol SQ AC-TID 10/29/24 11/15/24 Megestrol [Megace] 400 mg PO AC-BID 10/29/24 11/15/24 Sertraline [Zoloft] 100 mg PO TID 10/29/24 11/15/24 Sucralfate [Carafate] 1 gm PO AC-BID 10/29/24 11/15/24 HYDROcodone/APAP 10-325MG [Hulbert 1 tab PO Q6HR PRN 11/15/24 11/15/24 10-325] Tamsulosin [Flomax] 0.4 mg PO BID 11/15/24 11/15/24 Previous Rx's Medication Instructions Recorded Acetaminophen Tab [Tylenol] 650 mg PO Q6HR PRN tab 11/04/24 Allergies Allergy/AdvReac Type Severity Reaction Status Date / Time No Known Allergies Allergy Verified 11/15/24 18:34 Review of Systems ROS Statement: Those systems with pertinent positive or pertinent negative responses have been documented in the HPI. ROS Other: All systems not noted in ROS Statement are negative. Past Medical History Past Medical History: CVA/TIA, Diabetes Mellitus, Hyperlipidemia, Hypertension, Sleep Apnea/CPAP/BIPAP Additional Past Medical History / Comment(s): uses CPAP, CEREBRAL BLEED 08/19/22 RIGHT SIDE WEAKNESS History of Any Multi-Drug Resistant Organisms: None Reported Past Surgical History: Bowel Resection, Heart Catheterization, Hernia Repair Additional Past Surgical History / Comment(s): Colostomy, colonoscopy Past Anesthesia/Blood Transfusion Reactions: No Reported Reaction Past Psychological History: Depression Smoking Status: Former smoker Past Alcohol Use History: Occasional Past Drug Use History: None Reported - Past Family History Sister(s) Family Medical History: Cancer Additional Family Medical History / Comment(s): 1 SISTER FROM ESOPHAGEL CANCER. 1 SISTER HAD BREAST CANCER General Exam Limitations: no limitations Eye exam: Present: normal appearance, PERRL, EOMI. Absent: scleral icterus, conjunctival injection, periorbital swelling Neck exam: Present: normal inspection. Absent: tenderness, meningismus, lymphadenopathy Respiratory exam: Present: normal lung sounds bilaterally. Absent: respiratory distress, wheezes, rales, rhonchi, stridor Cardiovascular Exam: Present: regular rate, normal rhythm, normal heart sounds. Absent: systolic murmur, diastolic murmur, rubs, gallop, clicks GI/Abdominal exam: Present: soft, normal bowel sounds. Absent: distended, tenderness, guarding, rebound, rigid Extremities exam: Present: normal inspection, full ROM, normal capillary refill. Absent: tenderness, pedal edema, joint swelling, calf tenderness Back exam: Present: normal inspection Course Vital Signs 11/15/24 11/15/24 11/15/24 17:28 18:35 20:28 Temperature 98.5 F 98.1 F Pulse Rate 78 90 93 Respiratory 18 20 16 Rate Blood Pressure 79/52 99/69 108/73 O2 Sat by Pulse 96 98 98 Oximetry Medical Decision Making - Medical Decision Making Was pt. sent in by a medical professional or institution (, PA, JUNIOR RECRUITER, urgent care, hospital, or assisted...) When possible be specific @ -No Did you speak to anyone other than the patient for history (EMS, parent, family, police, friend...)? What history was obtained from this source @ -No Did you review nursing and triage notes (agree or disagree)? Why? @ -I reviewed and agree with nursing and triage notes Were old charts reviewed (outside hosp., previous admission, EMS record, old EKG, old radiological studies, urgent care reports/EKG's, assisted records)? Report findings @ -Patient was admitted for acute renal failure, obstructing nephrolithiasis and hydronephrosis 11/04 patient underwent cystoscopy with right ureteral stent insertion on 11/03/2024, urology is under the assumption that patient's kidney stones or results of ileostomy that will likely require formal metabolic evaluation. Differential Diagnosis (chest pain, altered mental status, abdominal pain women, abdominal pain men, vaginal bleeding, weakness, fever, dyspnea, syncope, headache, dizziness, GI bleed, back pain, seizure, CVA, palpatations, mental health, musculoskeletal)? @ -Differential Weakness: Hypoglycemia, shock, sepsis, hyponatremia, anemia, infection, IA, ETOH, adverse medicine reaction, overdose, stroke, this is not meant to be an all-inclusive list. EKG interpreted by me (3pts min.). @ -Completed at 1745 sinus rhythm with a ventricular of 94, parable 147, QRS 108, QTc 455. X-rays interpreted by me (1pt min.). @ -None done CT interpreted by me (1pt min.). @ -None done U/S interpreted by me (1pt. min.). @ -Ultrasound completed of the kidneys, ureters, bladder reveals mild right hydronephrosis, bilateral nonobstructing renal calculi, right renal cyst. What testing was considered but not performed or refused? (CT, X-rays, U/S, labs)? Why? @ -None What meds were considered but not given or refused? Why? @ -None Did you discuss the management of the patient with other professionals (professionals i.e. DrAmelia, PA, JUNIOR RECRUITER, lab, RT, psych nurse, social studies department chair, flex o writer operator, teacher, traffic maintenance officer, binder caser)? Give summary @ -spoke with promotion producer geothermal sheet metal worker, Dr. Jin, recommend that patient be placed on a bicarb drip in addition to Leach catheter be placed to monitor strict in take and output. Spoke to primary care provider, Dr. Perez, who was agreed to admit the patient. Was smoking cessation discussed for >3mins.? @ -No Was critical care preformed (if so, how long)? @ -No Were there social determinants of health that impacted care today? How? (Homelessness, low income, unemployed, alcoholism, drug addiction, transportation, low edu. Level, literacy, decrease access to med. care, senior living, rehab)? @ -No Was there de-escalation of care discussed even if they declined (Discuss DNR or withdrawal of care, Hospice)? DNR status @ -No What co-morbidities impacted this encounter? (DM, HTN, Smoking, COPD, CAD, Cancer, CVA, ARF, Chemo, Hep., AIDS, mental health diagnosis, sleep apnea, morbid obesity)? @ -None Was patient admitted / discharged? Hospital course, mention meds given and route, prescriptions, significant lab abnormalities, going to OR and other pertinent info. @ -Admitted. 64 male presenting for complaint of generalized weakness. Patient is hypotensive on arrival with a blood pressure 79/52. KG sinus rhythm. Patient divided with 500 mL fluid bolus. Labs are concerning for elevated creatinine of 8.37, BUN of 70, decreased GFR of 6. Patient's urinalysis remarkable for large amount of blood with red color. Nephrology suggest the patient be placed on a bicarb drip in addition to a Leach catheter be placed monitor strict intake and output. Patient will be mated to internal medicine with nephrology and urology on consult. Case discussed with Dr. Vega Undiagnosed new problem with uncertain prognosis? @ -No Drug Therapy requiring intensive monitoring for toxicity (Heparin, Nitro, Insulin, Cardizem)? @ -No Were any procedures done? @ -No Diagnosis/symptom? @ -Acute renal failure Acute, or Chronic, or Acute on Chronic? @ -Acute Uncomplicated (without systemic symptoms) or Complicated (systemic symptoms)? @ -Complicated Side effects of treatment? @ -No Exacerbation, Progression, or Severe Exacerbation? @ -No Poses a threat to life or bodily function? How? (Chest pain, USA, IA, pneumonia, PE, COPD, DKA, ARF, appy, cholecystitis, CVA, Diverticulitis, Homicidal, Suicidal, threat to staff... and all critical care pts) @ -No - Lab Data Result diagrams: 11/15/24 18:30 11/15/24 18:30 Lab Results 11/15/24 11/15/24 11/15/24 Range/Units 18:30 18:30 18:30 WBC 8.4 (3.8-10.6) k/uL RBC 3.37 L (4.30-5.90) m/uL Hgb 9.5 L (13.0-17.5) gm/dL Hct 30.5 L (39.0-53.0) % MCV 90.5 (80.0-100.0) fL MCH 28.3 (25.0-35.0) pg MCHC 31.3 (31.0-37.0) g/dL RDW 14.5 (11.5-15.5) % Plt Count 323 (150-450) k/uL MPV 8.2 Neutrophils % 68 % Lymphocytes % 21 % Monocytes % 5 % Eosinophils % 5 % Basophils % 0 % Neutrophils # 5.7 (1.3-7.7) k/uL Lymphocytes # 1.8 (1.0-4.8) k/uL Monocytes # 0.4 (0-1.0) k/uL Eosinophils # 0.4 (0-0.7) k/uL Basophils # 0.0 (0-0.2) k/uL Hypochromasia Slight PT 11.4 (10.0-12.5) sec INR 1.0 (<1.2) APTT 20.2 L (22.0-30.0) sec Sodium 137 (137-145) mmol/L Potassium 4.5 (3.5-5.1) mmol/L Chloride 109 H (98-107) mmol/L Carbon Dioxide 10 L (22-30) mmol/L Anion Gap 18 mmol/L BUN 70 H (9-20) mg/dL Creatinine 8.37 H* (0.66-1.25) mg/dL Est GFR (CKD-EPI)AfAm 7 (>60 ml/min/1.73 sqM) Est GFR (CKD-EPI)NonAf 6 (>60 ml/min/1.73 sqM) Glucose 109 H (74-99) mg/dL Lactic Ac Sepsis Rflx Plasma Lactic Acid Keyon (0.7-2.0) mmol/L Calcium 10.2 (8.4-10.2) mg/dL Phosphorus 6.8 H (2.5-4.5) mg/dL Magnesium 2.0 (1.6-2.3) mg/dL Total Bilirubin 0.4 (0.2-1.3) mg/dL AST 14 L (17-59) U/L ALT 16 (4-49) U/L Alkaline Phosphatase 69 (38-126) U/L Troponin I (0.000-0.034) ng/mL NT-Pro-B Natriuret Pep 260 pg/mL Total Protein 7.1 (6.3-8.2) g/dL Albumin 4.2 (3.5-5.0) g/dL Urine Color Urine Appearance (Clear) Urine RBC (0-5) /hpf Urine WBC (0-5) /hpf 11/15/24 11/15/24 11/15/24 Range/Units 18:30 18:30 19:21 WBC (3.8-10.6) k/uL RBC (4.30-5.90) m/uL Hgb (13.0-17.5) gm/dL Hct (39.0-53.0) % MCV (80.0-100.0) fL MCH (25.0-35.0) pg MCHC (31.0-37.0) g/dL RDW (11.5-15.5) % Plt Count (150-450) k/uL MPV Neutrophils % % Lymphocytes % % Monocytes % % Eosinophils % % Basophils % % Neutrophils # (1.3-7.7) k/uL Lymphocytes # (1.0-4.8) k/uL Monocytes # (0-1.0) k/uL Eosinophils # (0-0.7) k/uL Basophils # (0-0.2) k/uL Hypochromasia PT (10.0-12.5) sec INR (<1.2) APTT (22.0-30.0) sec Sodium (137-145) mmol/L Potassium (3.5-5.1) mmol/L Chloride (98-107) mmol/L Carbon Dioxide (22-30) mmol/L Anion Gap mmol/L BUN (9-20) mg/dL Creatinine (0.66-1.25) mg/dL Est GFR (CKD-EPI)AfAm (>60 ml/min/1.73 sqM) Est GFR (CKD-EPI)NonAf (>60 ml/min/1.73 sqM) Glucose (74-99) mg/dL Lactic Ac Sepsis Rflx Y Plasma Lactic Acid Keyon 2.4 H* (0.7-2.0) mmol/L Calcium (8.4-10.2) mg/dL Phosphorus (2.5-4.5) mg/dL Magnesium (1.6-2.3) mg/dL Total Bilirubin (0.2-1.3) mg/dL AST (17-59) U/L ALT (4-49) U/L Alkaline Phosphatase (38-126) U/L Troponin I 0.017 (0.000-0.034) ng/mL NT-Pro-B Natriuret Pep pg/mL Total Protein (6.3-8.2) g/dL Albumin (3.5-5.0) g/dL Urine Color Urine Appearance (Clear) Urine RBC (0-5) /hpf Urine WBC (0-5) /hpf 03/25/25 Range/Units 20:40 WBC (3.8-10.6) k/uL RBC (4.30-5.90) m/uL Hgb (13.0-17.5) gm/dL Hct (39.0-53.0) % MCV (80.0-100.0) fL MCH (25.0-35.0) pg MCHC (31.0-37.0) g/dL RDW (11.5-15.5) % Plt Count (150-450) k/uL MPV Neutrophils % % Lymphocytes % % Monocytes % % Eosinophils % % Basophils % % Neutrophils # (1.3-7.7) k/uL Lymphocytes # (1.0-4.8) k/uL Monocytes # (0-1.0) k/uL Eosinophils # (0-0.7) k/uL Basophils # (0-0.2) k/uL Hypochromasia PT (10.0-12.5) sec INR (<1.2) APTT (22.0-30.0) sec Sodium (137-145) mmol/L Potassium (3.5-5.1) mmol/L Chloride (98-107) mmol/L Carbon Dioxide (22-30) mmol/L Anion Gap mmol/L BUN (9-20) mg/dL Creatinine (0.66-1.25) mg/dL Est GFR (CKD-EPI)AfAm (>60 ml/min/1.73 sqM) Est GFR (CKD-EPI)NonAf (>60 ml/min/1.73 sqM) Glucose (74-99) mg/dL Lactic Ac Sepsis Rflx Plasma Lactic Acid Keyon (0.7-2.0) mmol/L Calcium (8.4-10.2) mg/dL Phosphorus (2.5-4.5) mg/dL Magnesium (1.6-2.3) mg/dL Total Bilirubin (0.2-1.3) mg/dL AST (17-59) U/L ALT (4-49) U/L Alkaline Phosphatase (38-126) U/L Troponin I (0.000-0.034) ng/mL NT-Pro-B Natriuret Pep pg/mL Total Protein (6.3-8.2) g/dL Albumin (3.5-5.0) g/dL Urine Color Red Urine Appearance Bloody (Clear) Urine RBC >182 H (0-5) /hpf Urine WBC >182 H (0-5) /hpf Disposition Clinical Impression: Acute renal failure Disposition: ADMITTED IP TO THIS [facility] Condition: Serious Decision to Admit Reason: Admit from EC Decision Date: 11/15/24 Decision Time: 20:54
[2024-11-15] MEDS: LACTATED RINGERS 500 ML IV ONE (18:59)
[2024-11-15 19:08] LABS: Basophils % (A) 0 %; Eosinophils # (A) 0.4 k/uL (0-0.7); Eosinophils % (A) 5 %; HCT 30.5 % (39.0-53.0); HGB 9.5 gm/dL (13.0-17.5); Hypochromasia Slight; Lymphocytes # (A) 1.8 k/uL (1.0-4.8); Lymphocytes % (A) 21 %; MCH 28.3 pg (25.0-35.0); MCHC 31.3 g/dL (31.0-37.0); MCV 90.5 fL (80.0-100.0); Mean Platelet Volume 8.2; Monocytes # (A) 0.4 k/uL (0-1.0); Monocytes % (A) 5 %; Neutrophils # (A) 5.7 k/uL (1.3-7.7); Neutrophils % (A) 68 %; Platelet Count 323 k/uL (150-450); RBC 3.37 m/uL (4.30-5.90); RDW 14.5 % (11.5-15.5); WBC 8.4 k/uL (3.8-10.6)
[2024-11-15 19:10] LABS: ALT 16 U/L (4-49); AST 14 U/L (17-59); African American GFR (CKD) 7 (>60 ml/min/1.73 sqM); Albumin 4.2 g/dL (3.5-5.0); Alkaline Phosphatase 69 U/L (38-126); Anion Gap 18 mmol/L; Blood Urea Nitrogen 70 mg/dL (9-20); Calcium 10.2 mg/dL (8.4-10.2); Carbon Dioxide 10 mmol/L (22-30); Chloride 109 mmol/L (98-107); Glucose 109 mg/dL (74-99); Non-African American GFR(CKD) 6 (>60 ml/min/1.73 sqM); Phosphorus 6.8 mg/dL (2.5-4.5); Potassium 4.5 mmol/L (3.5-5.1); Sodium 137 mmol/L (137-145); Total Bilirubin 0.4 mg/dL (0.2-1.3); Total Protein 7.1 g/dL (6.3-8.2)
[2024-11-15 19:16] LABS: Prothrombin Time 11.4 sec (10.0-12.5)
[2024-11-15 19:18] LABS: NT-Pro-B-Type Natriuretic Pept 260 pg/mL
[2024-11-15 19:19] LABS: Partial Thromboplastin Time 20.2 sec (22.0-30.0)
[2024-11-15] MEDS: MORPHINE SULFATE 4 MG/ML SYRINGE IVP STA (20:35)
--- NOTE | 2024-11-15 20:42 | US ---
EXAMINATION TYPE: US kidneys/renal and bladder DATE OF EXAM: 11/15/2024 COMPARISON: US 10/31/24 CLINICAL INDICATION: Male, 64 years old with history of elevated creatinine, low GFR, decreased outpu t; Patient states hx stones, stent put in 10 days ago for large stones on right side. Patient states he had over 100 stones on the right and left sides combined. Blood in the urine, decreased urine outp ut TECHNIQUE: Grayscale imaging of the bilateral kidneys and urinary bladder: FINDINGS: EXAM MEASUREMENTS: Right Kidney: 11.4 x 5.6 x 7.8 cm Left Kidney: 10.0 x 6.8 x 6.2 cm Right Kidney: multiple echogenic areas seen, largest measuring 1.2cm. Multiple anechoic areas seen la rgest measuring 6.7 x 4.6 x 4.5cm in the superior pole. Anechoic area within the renal collection sys tem, ? mild hydro vs other . Left Kidney: multiple echogenic foci seen, largest measuring 1.7cm laterally Bladder: ? 0.9 cm possible echogenic foci seen within the posterior left bladder. incidental finding of multiple echogenic foci within the gallbladder IMPRESSION: 1. Mild right hydronephrosis. 2. Bilateral nonobstructing renal calculi. 3. Right renal cyst. 4. Multiple probable bladder stones. 5. Cholelithiasis. [facility], , 11/15/2024 8:39 PM
[2024-11-15] MEDS ORDERED: ACETAMINOPHEN TAB 325 MG TAB PO PRN (20:49)
[2024-11-15] MEDS ORDERED: NALOXONE 0.4 MG/ML 1 ML VIAL IV PRN (20:49)
[2024-11-15 20:53] LABS: RBC,Urine >182 /hpf (0-5); WBC,Urine >182 /hpf (0-5)
[2024-11-15 20:55] LABS: Appearance,Urine Bloody (Clear); Color,Urine Red
[2024-11-15] MEDS: SODIUM CHLORIDE 0.9% 500 ML 500 ML IV STA (21:00)
[2024-11-15] MEDS: DEXTROSE 5% IN WATER 1,000 ML with SODIUM BICARB (1 MEQ/ML) 50 ML IV SCH (21:02)
[2024-11-15] MEDS: SERTRALINE 50 MG TAB PO SCH (22:26)
[2024-11-15] MEDS: ONDANSETRON ODT 4 MG TAB PO SCH (22:26)
[2024-11-15] MEDS: DICYCLOMINE 10 MG CAP PO SCH (22:26)
[2024-11-15] MEDS: GABAPENTIN 100 MG CAP PO SCH (22:26)
[2024-11-15] MEDS: DEXTROSE 5% IN WATER 1,000 ML with SODIUM BICARB (1 MEQ/ML) 150 ML IV SCH (22:29)
[2024-11-16] MEDS: droNABinol 2.5 MG CAP PO SCH (08:35)
[2024-11-16] MEDS: ATORVASTATIN 80 MG TAB PO SCH (08:35)
[2024-11-16] MEDS: PANTOPRAZOLE 40 MG TABLET PO SCH (08:36)
[2024-11-16] MEDS: HYDROcodone/APAP 10-325MG 1 EACH TAB PO PRN (08:36)
[2024-11-16] MEDS: APIXABAN 5 MG TAB PO SCH (08:36)
[2024-11-16] MEDS: BACLOFEN 10 MG TAB PO SCH (08:36)
[2024-11-16] MEDS: carvediloL 6.25 MG TAB PO SCH (08:36)
[2024-11-16 08:39] LABS: Basophils % (A) 0 %; Eosinophils # (A) 0.5 k/uL (0-0.7); Eosinophils % (A) 5 %; HCT 29.5 % (39.0-53.0); HGB 9.4 gm/dL (13.0-17.5); Hypochromasia Moderate; Lymphocytes # (A) 2.4 k/uL (1.0-4.8); Lymphocytes % (A) 26 %; MCH 28.9 pg (25.0-35.0); MCHC 31.7 g/dL (31.0-37.0); Mean Platelet Volume 8.1; Monocytes # (A) 0.5 k/uL (0-1.0); Monocytes % (A) 6 %; Neutrophils # (A) 5.8 k/uL (1.3-7.7); Neutrophils % (A) 61 %; Platelet Count 305 k/uL (150-450); RBC 3.24 m/uL (4.30-5.90); RDW 14.5 % (11.5-15.5); WBC 9.5 k/uL (3.8-10.6)
[2024-11-16 08:54] LABS: ALT 14 U/L (4-49); AST 13 U/L (17-59); African American GFR (CKD) 8 (>60 ml/min/1.73 sqM); Albumin 3.9 g/dL (3.5-5.0); Alkaline Phosphatase 73 U/L (38-126); Anion Gap 16 mmol/L; Blood Urea Nitrogen 69 mg/dL (9-20); Calcium 9.9 mg/dL (8.4-10.2); Carbon Dioxide 13 mmol/L (22-30); Chloride 108 mmol/L (98-107); Glucose 132 mg/dL (74-99); Non-African American GFR(CKD) 7 (>60 ml/min/1.73 sqM); Potassium 4.2 mmol/L (3.5-5.1); Sodium 137 mmol/L (137-145); Total Bilirubin 0.5 mg/dL (0.2-1.3); Total Protein 6.7 g/dL (6.3-8.2)
[2024-11-16] MEDS ORDERED: DEXTROSE 50% SYRINGE 50 ML IVP PRN ×2 (09:19)
[2024-11-16 10:13] LABS: Basophils % (A) 0 %; Eosinophils # (A) 0.4 k/uL (0-0.7); Eosinophils % (A) 5 %; HGB 8.5 gm/dL (13.0-17.5); Lymphocytes # (A) 1.4 k/uL (1.0-4.8); Lymphocytes % (A) 19 %; MCH 28.7 pg (25.0-35.0); MCHC 32.5 g/dL (31.0-37.0); MCV 88.4 fL (80.0-100.0); Mean Platelet Volume 8.1; Monocytes # (A) 0.3 k/uL (0-1.0); Monocytes % (A) 4 %; Neutrophils % (A) 70 %; Platelet Count 237 k/uL (150-450); RBC 2.95 m/uL (4.30-5.90); RDW 14.4 % (11.5-15.5); WBC 7.2 k/uL (3.8-10.6)
[2024-11-16] MEDS: TAMSULOSIN 0.4 MG CAP.ER.24H PO SCH (10:35)
[2024-11-16] MEDS: SUCRALFATE 1 GM TAB PO SCH (10:35)
--- NOTE | 2024-11-16 10:44 | P.NPCON ---
History of Present Illness - Reason for Consult acute renal failure - History of Present Illness Reason for consultation: Acute kidney injury History of present illness: Patient is a 64-year-old male seen in renal consultation for acute kidney injury. Creatinine on admission was 8.37 and is 7.75 today. Patient came to the hospital due to gross hematuria and low urine output. Patient states he has been eating and drinking okay. His appetite has been poor the last couple of days. He denies vomiting or diarrhea. Patient was admitted at this facility earlier this month and was noted to have obstructive uropathy. He underwent cystoscopy and ureteral stent placement on the right side on November 03, 2024. Ultrasound from this admission shows mild right-sided hydronephrosis. He does have longstanding history of diabetes. Hemodynamically stable. I do see lisinopril on his home medication list which is currently held. He has history of A-fib and follows with cardiology outpatient. Vital signs are stable. General: No acute distress. HEENT: Head exam is unremarkable. LUNGS: No audible rhonchi or wheezes. HEART: Rate and Rhythm are regular. ABDOMEN: Nontender. EXTREMITITES: No edema. Past Medical History Past Medical History: CVA/TIA, Diabetes Mellitus, Hyperlipidemia, Hypertension, Sleep Apnea/CPAP/BIPAP Additional Past Medical History / Comment(s): uses CPAP, CEREBRAL BLEED 08/19/22 and 2023 RIGHT SIDE WEAKNESS History of Any Multi-Drug Resistant Organisms: None Reported Past Surgical History: Bowel Resection, Heart Catheterization, Hernia Repair Additional Past Surgical History / Comment(s): Colostomy, colonoscopy Past Anesthesia/Blood Transfusion Reactions: No Reported Reaction Past Psychological History: Depression Smoking Status: Former smoker Past Alcohol Use History: Occasional Additional Past Alcohol Use History / Comment(s): STARTED SMOKING AT AGE 21 QUIT SMOKING AT AGE 37 SMOKED LESS THAN 1 PACK A MONTH Past Drug Use History: None Reported - Past Family History Sister(s) Family Medical History: Cancer Additional Family Medical History / Comment(s): 1 SISTER FROM ESOPHAGEL CANCER. 1 SISTER HAD BREAST CANCER Medications and Allergies Home Medications Medication Instructions Recorded Confirmed Type Atorvastatin [Lipitor] 80 mg PO DAILY 12/20/21 11/15/24 History Gabapentin [Neurontin] 100 mg PO TID 12/20/21 11/15/24 History Pantoprazole [Protonix] 40 mg PO DAILY 12/20/21 11/15/24 History metFORMIN HCL 500 mg PO BID 12/20/21 11/15/24 History Baclofen 5 mg PO BID 10/25/23 11/15/24 History Dicyclomine [Bentyl] 10 mg PO TID 10/25/23 11/15/24 History Loperamide [Imodium] 2 mg PO QID 10/25/23 11/15/24 History Apixaban [Eliquis] 5 mg PO BID 11/27/23 11/15/24 History Ondansetron [Zofran] 8 mg PO TID 11/27/23 11/15/24 History carvediloL [Coreg] 6.25 mg PO BID 11/27/23 11/15/24 History droNABinol [Marinol] 2.5 mg PO BID 11/27/23 11/15/24 History lisinopriL [Zestril] 5 mg PO DAILY PRN 11/27/23 11/15/24 History Cholecalciferol (Vitamin D3) 1,250 mcg PO WEEKLY 10/29/24 11/15/24 History [Vitamin D3 (1250 Mcg = 50,000 Iu)] Insulin Lispro [humaLOG Kwikpen] See Protocol SQ AC-TID 10/29/24 11/15/24 History Megestrol [Megace] 400 mg PO AC-BID 10/29/24 11/15/24 History Sertraline [Zoloft] 100 mg PO TID 10/29/24 11/15/24 History Sucralfate [Carafate] 1 gm PO AC-BID 10/29/24 11/15/24 History Acetaminophen Tab [Tylenol] 650 mg PO Q6HR PRN tab 11/04/24 11/15/24 Rx HYDROcodone/APAP 10-325MG [[place] 1 tab PO Q6HR PRN 11/15/24 11/15/24 History 10-325] Tamsulosin [Flomax] 0.4 mg PO BID 11/15/24 11/15/24 History Allergies Allergy/AdvReac Type Severity Reaction Status Date / Time No Known Allergies Allergy Verified 11/15/24 18:34 Physical Exam Vitals: Vital Signs Temp Pulse Pulse Resp BP BP Pulse Ox 11/16/24 07:56 98.1 F 89 16 104/66 99 11/16/24 06:00 98.4 F 87 16 113/70 98 11/16/24 04:00 76 16 112/66 100 11/16/24 01:00 76 16 109/85 100 11/15/24 22:30 79 18 102/66 99 11/15/24 20:28 98.1 F 93 16 108/73 98 11/15/24 18:35 90 20 99/69 98 11/15/24 17:28 98.5 F 78 18 79/52 96 Intake and Output 11/15/24 11/16/24 11/16/24 22:59 06:59 14:59 Other: Weight 90.265 kg 90.265 kg Results - Lab Results Most recent lab results Calcium 9.9 mg/dL (8.4-10.2) 11/16/24 08:00 Phosphorus 6.8 mg/dL (2.5-4.5) H 11/15/24 18:30 Magnesium 1.9 mg/dL (1.6-2.3) 11/15/24 21:29 11/16/24 09:42 11/16/24 08:00 Assessment and Plan Plan: Assessment: 1. Acute kidney injury secondary to ATN versus obstructive uropathy. Creatinine 8.37 on admission and is 7.75 today. Mild hydronephrosis noted on the right side on imaging. Creatinine earlier this month was near 2. 2. Right-sided hydronephrosis with cystoscopy and right ureteral stent placement November 03, 2024. 3. Metabolic acidosis secondary to acute kidney injury and IV fluids. Improving with bicarb drip. 4. Anemia. Rule out iron deficiency. 5. Diabetes mellitus. 6. Benign hypertension. Controlled. 7. Nephrolithiasis. Plan: Maintain bicarb drip. 2 amp sodium bicarb IV push today Check iron studies. Bladder scan negative for urinary retention. Await urology eval. Continue to assess daily for need for renal replacement therapy. Case discussed with patient and his present at bedside. Thank you for the consultation. I will continue to follow the patient with you during his hospital stay.
[2024-11-16 10:48] LABS: Magnesium 1.9 mg/dL (1.6-2.3)
[2024-11-16] MEDS: SODIUM BICARB 8.4% 50 ML SYR (1 MEQ/ML) IV STA (11:26)
[2024-11-16 12:06] LABS: Glucose,Whole Blood 181 mg/dL (70-110)
[2024-11-16] MEDS: INSULIN LISPRO (HumaLOG) 100 UNIT/ML 10 mL VL SQ SCH (12:18)
--- NOTE | 2024-11-16 12:58 | P.GSCN ---
History of Present Illness Consult date: 11/16/24 Reason for Consult: This is a 64-year-old male admitted to the hospital with acute kidney injury creatinine is at 8, he has normal kidney function at baseline. Recently u nderwent a cystoscopy with a right-sided stent insertion by Dr. Murdock on October 28, patient does not have history of uric acid stones. Indicated since her surgery has been having intermittent right flank pain, is also been having poor appetite with decreased p.o. intake. Underwent a renal bladder ultrasound that showed mild right-sided hydronephrosis. His postvoid residual was only 75. He denies any gross hematuria. Past Medical History Past Medical History: CVA/TIA, Diabetes Mellitus, Hyperlipidemia, Hypertension, Sleep Apnea/CPAP/BIPAP Additional Past Medical History / Comment(s): uses CPAP, CEREBRAL BLEED 08/19/22 and 2023 RIGHT SIDE WEAKNESS History of Any Multi-Drug Resistant Organisms: None Reported Past Surgical History: Bowel Resection, Heart Catheterization, Hernia Repair Additional Past Surgical History / Comment(s): Colostomy, colonoscopy Past Anesthesia/Blood Transfusion Reactions: No Reported Reaction Past Psychological History: Depression Smoking Status: Former smoker Past Alcohol Use History: Occasional Additional Past Alcohol Use History / Comment(s): STARTED SMOKING AT AGE 21 QUIT SMOKING AT AGE 37 SMOKED LESS THAN 1 PACK A MONTH Past Drug Use History: None Reported - Past Family History Sister(s) Family Medical History: Cancer Additional Family Medical History / Comment(s): 1 SISTER FROM ESOPHAGEL CANCER. 1 SISTER HAD BREAST CANCER Medications and Allergies Home Medications Medication Instructions Recorded Confirmed Type Atorvastatin [Lipitor] 80 mg PO DAILY 12/20/21 11/15/24 History Gabapentin [Neurontin] 100 mg PO TID 12/20/21 11/15/24 History Pantoprazole [Protonix] 40 mg PO DAILY 12/20/21 11/15/24 History metFORMIN HCL 500 mg PO BID 12/20/21 11/15/24 History Baclofen 5 mg PO BID 10/25/23 11/15/24 History Dicyclomine [Bentyl] 10 mg PO TID 10/25/23 11/15/24 History Loperamide [Imodium] 2 mg PO QID 10/25/23 11/15/24 History Apixaban [Eliquis] 5 mg PO BID 11/27/23 11/15/24 History Ondansetron [Zofran] 8 mg PO TID 11/27/23 11/15/24 History carvediloL [Coreg] 6.25 mg PO BID 11/27/23 11/15/24 History droNABinol [Marinol] 2.5 mg PO BID 11/27/23 11/15/24 History lisinopriL [Zestril] 5 mg PO DAILY PRN 11/27/23 11/15/24 History Cholecalciferol (Vitamin D3) 1,250 mcg PO WEEKLY 10/29/24 11/15/24 History [Vitamin D3 (1250 Mcg = 50,000 Iu)] Insulin Lispro [humaLOG Kwikpen] See Protocol SQ AC-TID 10/29/24 11/15/24 History Megestrol [Megace] 400 mg PO AC-BID 10/29/24 11/15/24 History Sertraline [Zoloft] 100 mg PO TID 10/29/24 11/15/24 History Sucralfate [Carafate] 1 gm PO AC-BID 10/29/24 11/15/24 History Acetaminophen Tab [Tylenol] 650 mg PO Q6HR PRN tab 11/04/24 11/15/24 Rx HYDROcodone/APAP 10-325MG [[place] 1 tab PO Q6HR PRN 11/15/24 11/15/24 History 10-325] Tamsulosin [Flomax] 0.4 mg PO BID 11/15/24 11/15/24 History Allergies Allergy/AdvReac Type Severity Reaction Status Date / Time No Known Allergies Allergy Verified 11/15/24 18:34 Surgical - Exam Vital Signs Temp Pulse Resp BP Pulse Ox 98.5 F 78 18 79/52 96 11/15/24 17:28 11/15/24 17:28 11/15/24 17:28 11/15/24 17:28 11/15/24 17:28 - General no distress, no pain - Respiratory normal expansion, normal respiratory effort - Abdomen Abdomen: soft, non tender - Psychiatric oriented to time, oriented to person, oriented to place Results - Labs 11/16/24 09:42 11/16/24 08:00 Abnormal Lab Results - Last 24 Hours (Table) 11/15/24 11/15/24 11/15/24 Range/Units 18:30 18:30 18:30 RBC 3.37 L (4.30-5.90) m/uL Hgb 9.5 L (13.0-17.5) gm/dL Hct 30.5 L (39.0-53.0) % APTT 20.2 L (22.0-30.0) sec Chloride 109 H (98-107) mmol/L Carbon Dioxide 10 L (22-30) mmol/L BUN 70 H (9-20) mg/dL Creatinine 8.37 H* (0.66-1.25) mg/dL Glucose 109 H (74-99) mg/dL POC Glucose (mg/dL) (70-110) mg/dL Plasma Lactic Acid [place] (0.7-2.0) mmol/L Phosphorus 6.8 H (2.5-4.5) mg/dL AST 14 L (17-59) U/L Urine RBC (0-5) /hpf Urine WBC (0-5) /hpf 11/15/24 11/15/24 11/16/24 Range/Units 18:30 20:40 08:00 RBC 3.24 L (4.30-5.90) m/uL Hgb 9.4 L (13.0-17.5) gm/dL Hct 29.5 L (39.0-53.0) % APTT (22.0-30.0) sec Chloride (98-107) mmol/L Carbon Dioxide (22-30) mmol/L BUN (9-20) mg/dL Creatinine (0.66-1.25) mg/dL Glucose (74-99) mg/dL POC Glucose (mg/dL) (70-110) mg/dL Plasma Lactic Acid [place] 2.4 H* (0.7-2.0) mmol/L Phosphorus (2.5-4.5) mg/dL AST (17-59) U/L Urine RBC >182 H (0-5) /hpf Urine WBC >182 H (0-5) /hpf 11/16/24 11/16/24 11/16/24 Range/Units 08:00 09:42 12:05 RBC 2.95 L (4.30-5.90) m/uL Hgb 8.5 L (13.0-17.5) gm/dL Hct 26.0 L (39.0-53.0) % APTT (22.0-30.0) sec Chloride 108 H (98-107) mmol/L Carbon Dioxide 13 L (22-30) mmol/L BUN 69 H (9-20) mg/dL Creatinine 7.75 H* (0.66-1.25) mg/dL Glucose 132 H (74-99) mg/dL POC Glucose (mg/dL) 181 H (70-110) mg/dL Plasma Lactic Acid [place] (0.7-2.0) mmol/L Phosphorus (2.5-4.5) mg/dL AST 13 L (17-59) U/L Urine RBC (0-5) /hpf Urine WBC (0-5) /hpf Diabetes panel 11/15/24 11/16/24 Range/Units 18:30 08:00 Sodium 137 137 (137-145) mmol/L Potassium 4.5 4.2 (3.5-5.1) mmol/L Chloride 109 H 108 H (98-107) mmol/L Carbon Dioxide 10 L 13 L (22-30) mmol/L BUN 70 H 69 H (9-20) mg/dL Creatinine 8.37 H* 7.75 H* (0.66-1.25) mg/dL Glucose 109 H 132 H (74-99) mg/dL Calcium 10.2 9.9 (8.4-10.2) mg/dL AST 14 L 13 L (17-59) U/L ALT 16 14 (4-49) U/L Alkaline Phosphatase 69 73 (38-126) U/L Total Protein 7.1 6.7 (6.3-8.2) g/dL Albumin 4.2 3.9 (3.5-5.0) g/dL Calcium panel 11/15/24 11/16/24 Range/Units 18:30 08:00 Calcium 10.2 9.9 (8.4-10.2) mg/dL Phosphorus 6.8 H (2.5-4.5) mg/dL Albumin 4.2 3.9 (3.5-5.0) g/dL Pituitary panel 11/15/24 11/16/24 Range/Units 18:30 08:00 Sodium 137 137 (137-145) mmol/L Potassium 4.5 4.2 (3.5-5.1) mmol/L Chloride 109 H 108 H (98-107) mmol/L Carbon Dioxide 10 L 13 L (22-30) mmol/L BUN 70 H 69 H (9-20) mg/dL Creatinine 8.37 H* 7.75 H* (0.66-1.25) mg/dL Glucose 109 H 132 H (74-99) mg/dL Calcium 10.2 9.9 (8.4-10.2) mg/dL Adrenal panel 11/15/24 11/16/24 Range/Units 18:30 08:00 Sodium 137 137 (137-145) mmol/L Potassium 4.5 4.2 (3.5-5.1) mmol/L Chloride 109 H 108 H (98-107) mmol/L Carbon Dioxide 10 L 13 L (22-30) mmol/L BUN 70 H 69 H (9-20) mg/dL Creatinine 8.37 H* 7.75 H* (0.66-1.25) mg/dL Glucose 109 H 132 H (74-99) mg/dL Calcium 10.2 9.9 (8.4-10.2) mg/dL Total Bilirubin 0.4 0.5 (0.2-1.3) mg/dL AST 14 L 13 L (17-59) U/L ALT 16 14 (4-49) U/L Alkaline Phosphatase 69 73 (38-126) U/L Total Protein 7.1 6.7 (6.3-8.2) g/dL Albumin 4.2 3.9 (3.5-5.0) g/dL Assessment and Plan Assessment: 64-year-old male admitted to the hospital with acute kidney injury. Recent cystoscopy and right stent insertion by Dr Murdock 10/28. He is been having poor p.o. intake, ultrasound showed mild right-sided hydronephrosis, at this point recommend obtaining cross-sectional imaging to further assess. Hydronephrosis in the setting of a stent does not indicate obstruction as reflux of urine will also cause some degree of hydronephrosis. CT renal stone to further evaluate.
--- NOTE | 2024-11-16 13:26 | P.HPIM ---
History of Present Illness H&P Date: 11/16/24 Chief Complaint: Acute renal This is a 64-year-old gentleman with past medical history significant for recent inpatient admission with right hydronephrosis secondary to right ureteral calculus, right renal calculi- underwent cystoscopy with removal of bladder calculi, right retrograde pyelogram and right ureteral stent insertion on 11/03/2024 and discharged home on 11/04/2024. Past medical history also significant for colectomy, diabetes mellitus, A-fib, hypertension, hyp erlipidemia, sleep apnea uses CPAP, former nicotine dependence and multiple other medical issues. at bedside,reports they had gone to [place] post discharge and patient appeared a" little off "there. Reports decreased appetite ,complained of intermittent right flank pain. Denies hematuria. Denies vomiting. Denies diarrhea. Over the last 3 days patient's confusion, muscle strength /weakness worsened and patient was brought into the ER.on admission creatinine 8.37, BUN 70, bicarb 10 .lactic acid 2.4, phosphorus 6.8 .hemoglobin 9.5, platelets 323, INR 1 afebrile, normal WBC .urine reported greater than 182 RBCs and WBCs.repeat labs and urine culture pending. Renal ultrasound reported mild right hydronephrosis, bilateral nonobstructing renal calculi, right renal cyst, multiple probable bladder stones, cholelithiasis. Minimal post void residuals reported no greater than 75 mLs. Urology and nephrology consults in place.IV fluid hydration/bicarb drip initiated. Review of Systems ROS Statement: Those systems with pertinent positive or pertinent negative responses have been documented in the HPI. ROS Other: All systems not noted in ROS Statement are negative. Past Medical History Past Medical History: CVA/TIA, Diabetes Mellitus, Hyperlipidemia, Hypertension, Sleep Apnea/CPAP/BIPAP Additional Past Medical History / Comment(s): uses CPAP, CEREBRAL BLEED 08/19/22 and 2023 RIGHT SIDE WEAKNESS History of Any Multi-Drug Resistant Organisms: None Reported Past Surgical History: Bowel Resection, Heart Catheterization, Hernia Repair Additional Past Surgical History / Comment(s): Colostomy, colonoscopy Past Anesthesia/Blood Transfusion Reactions: No Reported Reaction Past Psychological History: Depression Smoking Status: Former smoker Past Alcohol Use History: Occasional Additional Past Alcohol Use History / Comment(s): STARTED SMOKING AT AGE 21 QUIT SMOKING AT AGE 37 SMOKED LESS THAN 1 PACK A MONTH Past Drug Use History: None Reported - Past Family History Sister(s) Family Medical History: Cancer Additional Family Medical History / Comment(s): 1 SISTER FROM ESOPHAGEL CANCER. 1 SISTER HAD BREAST CANCER Medications and Allergies Home Medications Medication Instructions Recorded Confirmed Type Atorvastatin [Lipitor] 80 mg PO DAILY 12/20/21 11/15/24 History Gabapentin [Neurontin] 100 mg PO TID 12/20/21 11/15/24 History Pantoprazole [Protonix] 40 mg PO DAILY 12/20/21 11/15/24 History metFORMIN HCL 500 mg PO BID 12/20/21 11/15/24 History Baclofen 5 mg PO BID 10/25/23 11/15/24 History Dicyclomine [Bentyl] 10 mg PO TID 10/25/23 11/15/24 History Loperamide [Imodium] 2 mg PO QID 10/25/23 11/15/24 History Apixaban [Eliquis] 5 mg PO BID 11/27/23 11/15/24 History Ondansetron [Zofran] 8 mg PO TID 11/27/23 11/15/24 History carvediloL [Coreg] 6.25 mg PO BID 11/27/23 11/15/24 History droNABinol [Marinol] 2.5 mg PO BID 11/27/23 11/15/24 History lisinopriL [Zestril] 5 mg PO DAILY PRN 11/27/23 11/15/24 History Cholecalciferol (Vitamin D3) 1,250 mcg PO WEEKLY 10/29/24 11/15/24 History [Vitamin D3 (1250 Mcg = 50,000 Iu)] Insulin Lispro [humaLOG Kwikpen] See Protocol SQ AC-TID 10/29/24 11/15/24 History Megestrol [Megace] 400 mg PO AC-BID 10/29/24 11/15/24 History Sertraline [Zoloft] 100 mg PO TID 10/29/24 11/15/24 History Sucralfate [Carafate] 1 gm PO AC-BID 10/29/24 11/15/24 History Acetaminophen Tab [Tylenol] 650 mg PO Q6HR PRN tab 11/04/24 11/15/24 Rx HYDROcodone/APAP 10-325MG [[place] 1 tab PO Q6HR PRN 11/15/24 11/15/24 History 10-325] Tamsulosin [Flomax] 0.4 mg PO BID 11/15/24 11/15/24 History Allergies Allergy/AdvReac Type Severity Reaction Status Date / Time No Known Allergies Allergy Verified 11/15/24 18:34 Physical Exam Vitals: Vital Signs Temp Pulse Pulse Resp BP BP Pulse Ox 11/16/24 07:56 98.1 F 89 16 104/66 99 11/16/24 06:00 98.4 F 87 16 113/70 98 11/16/24 04:00 76 16 112/66 100 11/16/24 01:00 76 16 109/85 100 11/15/24 22:30 79 18 102/66 99 11/15/24 20:28 98.1 F 93 16 108/73 98 11/15/24 18:35 90 20 99/69 98 11/15/24 17:28 98.5 F 78 18 79/52 96 Intake and Output 11/15/24 11/16/24 11/16/24 22:59 06:59 14:59 Other: Weight 90.265 kg 90.265 kg General:alert and oriented x 3, no acute distress. Neck: neck is supple, no JVD. Cardiovascular: S1S2 is normal, There is a regular rate and rhythm. No murmur, rub or gallop is appreciated. Respiratory: Unlabored, equal air entry ,lungs are clear to auscultation. Gastrointestinal: Soft, non-distended, right lateral mid lower quadrant/flank tenderness. no rebound or guarding present. Ostomy present, +Bowel sounds. EXTREM: no pedal edema. There is no calf tenderness or swelling. Neurological: CN II-XII intact, no focal deficit. Strength and sensation grossly intact: Right-sided residual weakness from prior CVA. Skin: Skin is warm and dry, no rashes noted. Results CBC & Chem 7: 11/16/24 09:42 11/16/24 08:00 Labs: Abnormal Lab Results - Last 24 Hours (Table) 11/15/24 11/15/24 11/15/24 Range/Units 18:30 18:30 18:30 RBC 3.37 L (4.30-5.90) m/uL Hgb 9.5 L (13.0-17.5) gm/dL Hct 30.5 L (39.0-53.0) % APTT 20.2 L (22.0-30.0) sec Chloride 109 H (98-107) mmol/L Carbon Dioxide 10 L (22-30) mmol/L BUN 70 H (9-20) mg/dL Creatinine 8.37 H* (0.66-1.25) mg/dL Glucose 109 H (74-99) mg/dL Plasma Lactic Acid [place] (0.7-2.0) mmol/L Phosphorus 6.8 H (2.5-4.5) mg/dL AST 14 L (17-59) U/L Urine RBC (0-5) /hpf Urine WBC (0-5) /hpf 11/15/24 11/15/24 11/16/24 Range/Units 18:30 20:40 08:00 RBC 3.24 L (4.30-5.90) m/uL Hgb 9.4 L (13.0-17.5) gm/dL Hct 29.5 L (39.0-53.0) % APTT (22.0-30.0) sec Chloride (98-107) mmol/L Carbon Dioxide (22-30) mmol/L BUN (9-20) mg/dL Creatinine (0.66-1.25) mg/dL Glucose (74-99) mg/dL Plasma Lactic Acid [place] 2.4 H* (0.7-2.0) mmol/L Phosphorus (2.5-4.5) mg/dL AST (17-59) U/L Urine RBC >182 H (0-5) /hpf Urine WBC >182 H (0-5) /hpf Assessment and Plan Assessment: Acute renal failure, in a patient with poor appetite. Recent admission with right hydronephrosis secondary to right ureteral calculus, right renal calculi, underwent cystoscopy with removal of bladder calculi, right retrograde pyelogram and right ureteral stent insertion on 11/03/2024 and discharged home on 10/22.ultrasound reporting mild right sided hydronephrosis. CT pending. Lactic acidosis Metabolic acidosis Hypertension Diabetes mellitus Anemia, ruling out iron deficiency Plan: Continue on current medication regimen ,monitoring and symptomatic treatment. Bicarb drip, avoid nephrotoxins. Repeat labs pending. evaluated by both neurology and urology with recommendations noted. CT pending. Postvoid residual/bladder scans. Urine culture pending. Close monitoring of renal function, with repeat labs ordered for a.m. Pain management. The impression and plan of care has been dictated as directed. : I performed a history and examination of this patient, discussed the same with the dictator. I agree with the dictator's note ,documented as a scribe. Any additional findings or plans will be noted.
[2024-11-16 15:32] LABS: % Iron Saturation 38.16 (15.00-50.00)
--- NOTE | 2024-11-16 16:19 | CT ---
EXAMINATION TYPE: CT renal stones wo con DATE OF EXAM: 11/16/2024 COMPARISON: 10/29/2024 CLINICAL INDICATION: Male, 64 years old with history of hydronephrosis; PHH, Pain right sided abdomen /hydronephrosis. TECHNIQUE: CT scan of the abdomen and pelvis is performed without oral or IV contrast. CT DLP: [address] CTDI: mGy Automated exposure control for dose reduction was used. FINDINGS: Within the limitations of a non-contrast study, the following observations are made. The lungs are clear. Gallbladder is normal and there is no gallstone, wall thickening, pericholecystic fluid or distention . There is no biliary ductal dilatation. There is no organomegaly of the liver, pancreas, spleen or adrenal glands. There has been interval placement of a right ureteral stent with resolution of the hydronephrosis. Th e right UPJ calculus and a 13 mm right lower pole calculus are resolved. There is a persistent nonobs tructing 12 mm right lower pole calcification. There are 2 nonobstructing left renal calcifications l argest of which is approximately 9.5 mm. The caliber of the abdominal aorta is normal and there is no retroperitoneal adenopathy or hemorrhage . The bowel loops are normal in caliber is no evidence of obstruction. No inflammatory changes are iden tified in the mesentery and there is no free intraperitoneal air or fluid. There is a right lower gonzalo drant ostomy. There is no pelvic mass, free fluid, abscess or adenopathy. There is mild diverticulosis of the colon without CT evidence of diverticulitis. The osseous structures and soft tissues are unremarkable. IMPRESSION: 1. Placement of a right ureteral stent with resolution of the right hydronephrosis. 2. Resolution of 2 large right renal calcifications, one in the UPJ and the other in the lower pole t he right kidney. 3. Persistent bilateral nonobstructing renal calcifications as described above [facility], , 11/16/2024 4:17 PM
[2024-11-16] MEDS: ACETAMINOPHEN TAB 325 MG TAB PO PRN (16:31)
[2024-11-16 16:38] VITALS: BMI 27.7
[2024-11-16 17:03] LABS: Glucose,Whole Blood 146 mg/dL (70-110)
[2024-11-16] MEDS: HYDROcodone/APAP 5-325MG 1 EACH TAB PO PRN (17:24)
[2024-11-16 20:14] LABS: Glucose,Whole Blood 153 mg/dL (70-110)
[2024-11-17] MEDS: guaiFENesin 600 MG TABLET.ER PO PRN (06:34)
[2024-11-17 07:00] LABS: Glucose,Whole Blood 171 mg/dL (70-110)
[2024-11-17 09:02] LABS: BUN/Creat Ratio 9.17 Ratio (12.00-20.00); Blood Urea Nitrogen 64.2 mg/dL (9.0-27.0); Calcium 9.2 mg/dL (8.7-10.3); Carbon Dioxide 19.7 mmol/L (21.6-31.8); Chloride 103 mmol/L (96-109); Glucose 162 mg/dL (70-110); Magnesium 1.8 mg/dL (1.5-2.4); Potassium 3.7 mmol/L (3.5-5.5); Sodium 139 mmol/L (135-145)
--- NOTE | 2024-11-17 10:38 | P.PN ---
Subjective Patient is seen in follow-up for acute kidney injury. Renal function slightly improved. Nonoliguric. Oral intake fair. Denies chest pain or shortness of breath. Vital signs are stable. General: No acute distress. HEENT: Head exam is unremarkable. LUNGS: No audible rhonchi or wheezes. HEART: Rate and Rhythm are regular. ABDOMEN: Nontender. EXTREMITITES: No edema. Objective - Vital Signs Vital signs: Vital Signs Temp 98.3 F 11/17/24 07:00 Pulse 76 11/17/24 07:00 Resp 16 11/17/24 07:00 BP 136/74 11/17/24 07:00 Pulse Ox 97 11/17/24 07:00 FiO2 Intake & Output 11/16/24 11/17/24 11/17/24 18:59 06:59 18:59 Intake Total 640 240 Output Total 200 650 Balance 440 -410 Weight 90.265 kg Intake: Oral 640 240 Output: Urine 650 Stool 200 Other: Voiding Method Diaper Diaper Diaper Incontinent Incontinent External Catheter External Catheter # Voids 2 - Labs CBC & Chem 7: 11/16/24 09:42 11/17/24 05:28 Labs: Abnormal Lab Results - Last 24 Hours (Table) 11/16/24 11/16/24 11/16/24 Range/Units 08:00 09:42 12:05 Carbon Dioxide (21.6-31.8) mmol/L Anion Gap (4.00-12.00) mmol/L BUN (9.0-27.0) mg/dL Creatinine (0.6-1.5) mg/dL Est GFR (CKD-EPI) (>=60) BUN/Creatinine Ratio (12.00-20.00) Ratio Glucose (70-110) mg/dL POC Glucose (mg/dL) 181 H (70-110) mg/dL Hemoglobin A1c 7.0 H (<=6.0) % TIBC 207 L (228-460) UG/DL Transferrin 148.0 L (204.0-354.0) mg/dL Ferritin 1142.0 H (22.0-322.0) ng/mL 11/16/24 11/16/24 11/17/24 Range/Units 17:01 20:12 05:28 Carbon Dioxide (21.6-31.8) mmol/L Anion Gap (4.00-12.00) mmol/L BUN (9.0-27.0) mg/dL Creatinine (0.6-1.5) mg/dL Est GFR (CKD-EPI) (>=60) BUN/Creatinine Ratio (12.00-20.00) Ratio Glucose (70-110) mg/dL POC Glucose (mg/dL) 146 H 153 H (70-110) mg/dL Hemoglobin A1c 7.0 H (<=6.0) % TIBC (228-460) UG/DL Transferrin (204.0-354.0) mg/dL Ferritin (22.0-322.0) ng/mL 11/17/24 11/17/24 Range/Units 05:28 06:59 Carbon Dioxide 19.7 L (21.6-31.8) mmol/L Anion Gap 16.30 H (4.00-12.00) mmol/L BUN 64.2 H (9.0-27.0) mg/dL Creatinine 7.0 H (0.6-1.5) mg/dL Est GFR (CKD-EPI) 8 L (>=60) BUN/Creatinine Ratio 9.17 L (12.00-20.00) Ratio Glucose 162 H (70-110) mg/dL POC Glucose (mg/dL) 171 H (70-110) mg/dL Hemoglobin A1c (<=6.0) % TIBC (228-460) UG/DL Transferrin (204.0-354.0) mg/dL Ferritin (22.0-322.0) ng/mL Microbiology - Last 24 Hours (Table) 11/15/24 20:40 Urine Culture - Preliminary Urine,Voided Assessment and Plan Plan: Assessment: 1. Acute kidney injury secondary to ATN versus obstructive uropathy. Creatin ine 8.37 on admission and is 7.0 today. Mild hydronephrosis noted on the right side on imaging. Not noted on renal CT. Creatinine earlier this month was near 2. 2. Right-sided hydronephrosis with cystoscopy and right ureteral stent placement November 03, 2024. 3. Metabolic acidosis secondary to acute kidney injury and IV fluids. Improving with bicarb drip. 4. Anemia. R iron replete. Component of chronic illness. 5. Diabetes mellitus. 6. Benign hypertension. Controlled. 7. Nephrolithiasis. Plan: Maintain bicarb drip. Add Aranesp. Bladder scan negative for urinary retention. Repeat UA. Check serologies. Will consider kidney biopsy for definitive diagnosis if no improvement in renal function in the next 1 to 2 days. Continue to assess daily for need for renal replacement therapy. No urgency at this time. Case discussed with patient and his present at bedside.
[2024-11-17 11:48] LABS: Glucose,Whole Blood 123 mg/dL (70-110)
[2024-11-17] MEDS: DARBEPOETIN ALFA 40 MCG/0.4 ML SYRINGE SQ SCH (12:00)
--- NOTE | 2024-11-17 12:09 | P.PN ---
Subjective Progress Note Date: 11/17/24 H&P Date: 11/16/24 Chief Complaint: Acute renal This is a 64-year-old gentleman with past medical history significant for recent inpatient admission with right hydronephrosis secondary to right ureteral calculus, right renal calculi- underwent cystoscopy with removal of bladder calculi, right retrograde pyelogram and right ureteral stent insertion on 11/03 and discharged home on 11/04/2024. Past medical history also significant for CVA/TIA ,colectomy, diabetes mellitus, A-fib, hypertension, hyperlipidemia, sleep apnea uses CPAP, former nicotine dependence and multiple other medical issues. at bedside,reports they had gone to [place] post discharge and patient appeared a" little off "there. Reports decreased appetite ,complained of intermittent right flank pain. Denies hematuria. Denies vomiting. Denies diarrhea. Over the last 3 days patient's confusion, muscle strength /weakness worsened and patient was brought into the ER.on admission creatinine 8.37, BUN 70, bicarb 10 .lactic acid 2.4, phosphorus 6.8 .hemoglobin 9.5, platelets 323, INR 1 afebrile, normal WBC .urine reported greater than 182 RBCs and WBCs.repeat labs and urine culture pending. Renal ultrasound reported mild right hydronephrosis, bilateral nonobstructing renal calculi, right renal cyst, multiple probable bladder stones, cholelithiasis. Minimal post void residuals reported no greater than 75 mLs. Urology and nephrology consults in place.IV fluid hydration/bicarb drip initiated. 11/17/2024 this morning,patient reports he still does not feel quite right and reports his entire lower lip and left hand are numb, timeframe/onset unclear- vague historian. Moving left hand and digits. consumed 50% of dinner last night, 25% of breakfast this morning. maintained on bicarb drip ,renal function slowly improving, bicarb increased to 19.7, BUN 64.2, creatinine 7. Bladder scan reporting negative urinary retention .blood sugars controlled, hemoglobin A1c 7. Iron studies noted.Aranesp added to med regimine per nephrology. Renal CT reporting placement of right ureteral stent with resolution of right hydronephrosis, resolution of 2 large right renal calcifications 1 in the UPJ and the other in the lower pole of the right kidney, persistent bilateral nonobstructing renal calcifications. Objective - Vital Signs Vital signs: Vital Signs Temp 98.3 F 11/17/24 07:00 Pulse 76 11/17/24 07:00 Resp 16 11/17/24 07:00 BP 136/74 11/17/24 07:00 Pulse Ox 97 11/17/24 07:00 FiO2 Intake & Output 11/16/24 11/17/24 11/17/24 18:59 06:59 18:59 Intake Total 640 240 Output Total 200 650 Balance 440 -410 Weight 90.265 kg Intake: Oral 640 240 Output: Urine 650 Stool 200 Other: Voiding Method Diaper Diaper Diaper Incontinent Incontinent External Catheter External Catheter # Voids 2 - Exam General:alert and oriented x 3, no acute distress. Neck: neck is supple, no JVD. Cardiovascular: S1S2 is normal, There is a regular rate and rhythm. No murmur, rub or gallop is appreciated. Respiratory: Unlabored, equal air entry ,lungs are clear to auscultation. Gastrointestinal: Soft, non-distended, right lateral mid lower quadrant/flank tenderness. no rebound or guarding present. Ostomy present, +Bowel sounds. EXTREM: no pedal edema. There is no calf tenderness or swelling. Neurological: CN II-XII intact, no focal deficit. Strength and sensation grossly intact: Right-sided residual weakness from prior CVA. Skin: Skin is warm and dry, no rashes noted. - Labs CBC & Chem 7: 11/16/24 09:42 11/18/24 05:49 Labs: Abnormal Lab Results - Last 24 Hours (Table) 11/16/24 11/16/24 11/16/24 Range/Units 08:00 09:42 12:05 Carbon Dioxide (21.6-31.8) mmol/L Anion Gap (4.00-12.00) mmol/L BUN (9.0-27.0) mg/dL Creatinine (0.6-1.5) mg/dL Est GFR (CKD-EPI) (>=60) BUN/Creatinine Ratio (12.00-20.00) Ratio Glucose (70-110) mg/dL POC Glucose (mg/dL) 181 H (70-110) mg/dL Hemoglobin A1c 7.0 H (<=6.0) % TIBC 207 L (228-460) UG/DL Transferrin 148.0 L (204.0-354.0) mg/dL Ferritin 1142.0 H (22.0-322.0) ng/mL 11/16/24 11/16/24 11/17/24 Range/Units 17:01 20:12 05:28 Carbon Dioxide (21.6-31.8) mmol/L Anion Gap (4.00-12.00) mmol/L BUN (9.0-27.0) mg/dL Creatinine (0.6-1.5) mg/dL Est GFR (CKD-EPI) (>=60) BUN/Creatinine Ratio (12.00-20.00) Ratio Glucose (70-110) mg/dL POC Glucose (mg/dL) 146 H 153 H (70-110) mg/dL Hemoglobin A1c 7.0 H (<=6.0) % TIBC (228-460) UG/DL Transferrin (204.0-354.0) mg/dL Ferritin (22.0-322.0) ng/mL 11/17/24 11/17/24 Range/Units 05:28 06:59 Carbon Dioxide 19.7 L (21.6-31.8) mmol/L Anion Gap 16.30 H (4.00-12.00) mmol/L BUN 64.2 H (9.0-27.0) mg/dL Creatinine 7.0 H (0.6-1.5) mg/dL Est GFR (CKD-EPI) 8 L (>=60) BUN/Creatinine Ratio 9.17 L (12.00-20.00) Ratio Glucose 162 H (70-110) mg/dL POC Glucose (mg/dL) 171 H (70-110) mg/dL Hemoglobin A1c (<=6.0) % TIBC (228-460) UG/DL Transferrin (204.0-354.0) mg/dL Ferritin (22.0-322.0) ng/mL Microbiology - Last 24 Hours (Table) 11/15/24 20:40 Urine Culture - Preliminary Urine,Voided Assessment and Plan Assessment: Acute renal failure, in a patient with poor appetite, etiology unclear. Recent admission with right hydronephrosis secondary to right ureteral calculus, right renal calculi, underwent cystoscopy with removal of bladder calculi, right retrograde pyelogram and right ureteral stent insertion on 11/03/2024 and discharged home on 11/04/2024. Ultrasound reporting mild right sided hydronephrosis. Renal CT reporting placement of right ureteral stent with resolution of right hydronephrosis, resolution of 2 large right renal calcifications 1 in the UPJ and the other in the lower pole of the right kidney, persistent bilateral nonobstructing renal calcifications. Left hand and lower lip numbness, neurology following, brain CT pending Lactic acidosis Metabolic acidosis Anemia, multifactorial , secondary to all the above ,aranesp added to med regimine. Sleep apnea uses CPAP Hypertension Hyperlipidemia Diabetes mellitus History of CVA, TIA Prior nicotine dependence Plan: Continue on current medication regimen ,monitoring and symptomatic treatment. Patient reporting lower lip and left hand numbness , vague about onset .neurology consulted. Head CT ordered .neurochecks .maintain bicarb drip, avoid nephrotoxins.Urine culture in progress. Neurology and urology following .close monitoring of renal function, with repeat labs ordered for a.m. PT/OT consulted. The impression and plan of care has been dictated as directed. : I performed a history and examination of this patient, discussed the same with the dictator. I agree with the dictator's note ,documented as a scribe. Any additional findings or plans will be noted.
--- NOTE | 2024-11-17 12:38 | CT ---
EXAMINATION TYPE: CT brain wo con DATE OF EXAM: 11/17/2024 COMPARISON: CT brain October 26, 2023 CLINICAL INDICATION: Male, 64 years old with history of lip numbness, TECHNIQUE: CT scan of the head is performed without contrast. Automated Exposure Control for Dose Reduction was Utilized. FINDINGS: There is no acute intracranial hemorrhage or midline shift identified. There is mild to m oderate diffuse ventricular and sulcal prominence redemonstrated. There is mild low-attenuation in t he periventricular white matter redemonstrated. Focal calcification along the genu of the corpus call osum just left of midline axial image 32 is redemonstrated. There is old infarct inferior left occipi joseluis lobe axial image 25 redemonstrated. The globes are intact and the visualized sinuses are clear. IMPRESSION: No acute intracranial hemorrhage or midline shift. No significant change from most recen t prior CT. If clinical concern for acute stroke is present, consider MRI study follow-up to further evaluate. [facility], , 11/17/2024 12:35 PM
--- NOTE | 2024-11-17 14:28 | P.CNNES ---
History of Present Illness Consult date: 11/17/24 Requesting physician: Melissa Cobb Reason for Consult: left hand numbness, lower lip numbness, encephal History of Present Illness: This is a 64-year-old gentleman with history of 2 strokes with residual hemiparesis slurred speech who presents to the emergency department because of kidney stones. Neurology is consulted for numbness of her lower lip. Patient states that he has been having numbness over the lower lip for the last 12 hours. Per the primary team he was also complaining of left hand numbness but he denies left hand numbness but only left lower lip numbness. He does have prior strokes and he states that he has history of A-fib and he is on Eliquis. Denies any history of seizures. Denies any new weakness. Some of the workup during this hospital visit consisted of: His creatinine is as high as 8.37 Hemoglobin A1c is 7.0 Calcium is 9.9, Phosphorus is 6.8 Magnesium is 1.8 Review of Systems As per HPI Past Medical History Past Medical History: CVA/TIA, Diabetes Mellitus, Hyperlipidemia, Hypertension, Sleep Apnea/CPAP/BIPAP Additional Past Medical History / Comment(s): uses CPAP, CEREBRAL BLEED 08/19/22 and 2023 RIGHT SIDE WEAKNESS History of Any Multi-Drug Resistant Organisms: None Reported Past Surgical History: Bowel Resection, Heart Catheterization, Hernia Repair Additional Past Surgical History / Comment(s): Colostomy, colonoscopy Past Anesthesia/Blood Transfusion Reactions: No Reported Reaction Past Psychological History: Depression Smoking Status: Former smoker Past Alcohol Use History: Occasional Additional Past Alcohol Use History / Comment(s): STARTED SMOKING AT AGE 21 QUIT SMOKING AT AGE 37 SMOKED LESS THAN 1 PACK A MONTH Past Drug Use History: None Reported - Past Family History Sister(s) Family Medical History: Cancer Additional Family Medical History / Comment(s): 1 SISTER FROM ESOPHAGEL CANCER. 1 SISTER HAD BREAST CANCER Medications and Allergies Home Medications Medication Instructions Recorded Confirmed Type Atorvastatin [Lipitor] 80 mg PO DAILY 12/20/21 11/15/24 History Gabapentin [Neurontin] 100 mg PO TID 12/20/21 11/15/24 History Pantoprazole [Protonix] 40 mg PO DAILY 12/20/21 11/15/24 History metFORMIN HCL 500 mg PO BID 12/20/21 11/15/24 History Baclofen 5 mg PO BID 10/25/23 11/15/24 History Dicyclomine [Bentyl] 10 mg PO TID 10/25/23 11/15/24 History Loperamide [Imodium] 2 mg PO QID 10/25/23 11/15/24 History Apixaban [Eliquis] 5 mg PO BID 11/27/23 11/15/24 History Ondansetron [Zofran] 8 mg PO TID 11/27/23 11/15/24 History carvediloL [Coreg] 6.25 mg PO BID 11/27/23 11/15/24 History droNABinol [Marinol] 2.5 mg PO BID 11/27/23 11/15/24 History lisinopriL [Zestril] 5 mg PO DAILY PRN 11/27/23 11/15/24 History Cholecalciferol (Vitamin D3) 1,250 mcg PO WEEKLY 10/29/24 11/15/24 History [Vitamin D3 (1250 Mcg = 50,000 Iu)] Insulin Lispro [humaLOG Kwikpen] See Protocol SQ AC-TID 10/29/24 11/15/24 History Megestrol [Megace] 400 mg PO AC-BID 10/29/24 11/15/24 History Sertraline [Zoloft] 100 mg PO TID 10/29/24 11/15/24 History Sucralfate [Carafate] 1 gm PO AC-BID 10/29/24 11/15/24 History Acetaminophen Tab [Tylenol] 650 mg PO Q6HR PRN tab 11/04/24 11/15/24 Rx HYDROcodone/APAP 10-325MG [[place] 1 tab PO Q6HR PRN 11/15/24 11/15/24 History 10-325] Tamsulosin [Flomax] 0.4 mg PO BID 11/15/24 11/15/24 History Allergies Allergy/AdvReac Type Severity Reaction Status Date / Time No Known Allergies Allergy Verified 11/15/24 18:34 Physical Examination - Vital Signs Vital Signs: Vital Signs Temp Pulse Resp BP BP Pulse Ox 11/17/24 11:49 98.2 F 78 17 94/55 97 11/17/24 07:00 98.3 F 76 16 136/74 97 11/17/24 02:00 98.6 F 83 12 123/69 99 11/16/24 19:53 98.1 F 83 12 93/55 97 11/16/24 16:37 72 102/62 11/16/24 14:48 98.2 F 76 16 102/66 99 Intake and Output 11/16/24 11/17/24 11/17/24 22:59 06:59 14:59 Intake Total 640 240 Output Total 200 650 Balance 440 -410 Intake: Oral 640 240 Output: Urine 650 Stool 200 Other: Voiding Method Diaper Diaper Incontinent Incontinent External Catheter External Catheter # Voids 2 Weight 90.265 kg GENERAL: The patient is lying in bed and is not in acute distress. NEUROLOGICAL: Higher mental function: The patient is slightly drowsy but is awake able to voice oriented to self, place and time. Patient is following commands. No aphasia and no neglect. Cranial nerves: The pupils are round, equal and reactive to light and accommodation. Visual wu are full to confrontation throughout. Extraocular movement is intact no nystagmus is noted. Facial sensation is normal to touch throughout. The facial strength is right lower facial weakness that is mild. Tongue is midline and moved [id number] without any difficulty. Mild dysarthria is noted. Motor: The strength is right upper extremity strength proximally is 1-2 while the rest of the right upper extremity is 0 out of 5. Patient on the right lower extremity has 4+. Left upper and lower extremities 5 out of 5. Decreased tone and bulk over the right upper extremity. Cerebellum: Normal finger to nose on left but cannot perform right because of weakness. Sensation: Sensation is normal to touch throughout. Results - Laboratory Findings CBC and BMP: 11/16/24 09:42 11/17/24 05:28 Abnormal Lab Findings: Abnormal Labs 11/15/24 11/15/24 11/15/24 18:30 18:30 18:30 RBC 3.37 L Hgb 9.5 L Hct 30.5 L APTT 20.2 L Chloride 109 H Carbon Dioxide 10 L Anion Gap BUN 70 H Creatinine 8.37 H* Est GFR (CKD-EPI) BUN/Creatinine Ratio Glucose 109 H POC Glucose (mg/dL) Hemoglobin A1c Plasma Lactic Acid [place] Phosphorus 6.8 H TIBC Transferrin Ferritin AST 14 L Urine RBC Urine WBC 03/25/25 03/25/25 03/26/25 18:30 20:40 08:00 RBC 3.24 L Hgb 9.4 L Hct 29.5 L APTT Chloride Carbon Dioxide Anion Gap BUN Creatinine Est GFR (CKD-EPI) BUN/Creatinine Ratio Glucose POC Glucose (mg/dL) Hemoglobin A1c Plasma Lactic Acid [place] 2.4 H* Phosphorus TIBC Transferrin Ferritin AST Urine RBC >182 H Urine WBC >182 H 11/16/24 11/16/24 11/16/24 08:00 08:00 09:42 RBC 2.95 L Hgb 8.5 L Hct 26.0 L APTT Chloride 108 H Carbon Dioxide 13 L Anion Gap BUN 69 H Creatinine 7.75 H* Est GFR (CKD-EPI) BUN/Creatinine Ratio Glucose 132 H POC Glucose (mg/dL) Hemoglobin A1c Plasma Lactic Acid [place] Phosphorus TIBC 207 L Transferrin 148.0 L Ferritin 1142.0 H AST 13 L Urine RBC Urine WBC 11/16/24 11/16/24 11/16/24 09:42 12:05 17:01 RBC Hgb Hct APTT Chloride Carbon Dioxide Anion Gap BUN Creatinine Est GFR (CKD-EPI) BUN/Creatinine Ratio Glucose POC Glucose (mg/dL) 181 H 146 H Hemoglobin A1c 7.0 H Plasma Lactic Acid [place] Phosphorus TIBC Transferrin Ferritin AST Urine RBC Urine WBC 11/16/24 11/17/24 11/17/24 20:12 05:28 05:28 RBC Hgb Hct APTT Chloride Carbon Dioxide 19.7 L Anion Gap 16.30 H BUN 64.2 H Creatinine 7.0 H Est GFR (CKD-EPI) 8 L BUN/Creatinine Ratio 9.17 L Glucose 162 H POC Glucose (mg/dL) 153 H Hemoglobin A1c 7.0 H Plasma Lactic Acid [place] Phosphorus TIBC Transferrin Ferritin AST Urine RBC Urine WBC 11/17/24 11/17/24 06:59 11:47 RBC Hgb Hct APTT Chloride Carbon Dioxide Anion Gap BUN Creatinine Est GFR (CKD-EPI) BUN/Creatinine Ratio Glucose POC Glucose (mg/dL) 171 H 123 H Hemoglobin A1c Plasma Lactic Acid [place] Phosphorus TIBC Transferrin Ferritin AST Urine RBC Urine WBC Assessment and Plan Assessment: This is a 64-year-old gentleman who presents emergency department because of kidney stones. He is having worsening of the kidney function with elevated phosphorus. He also complained of lower lip numbness today. Lower lip numbness likely due to electrolyte imbalance with worsening of the kidney function Altered mental status due to metabolic encephalopathy Acute kidney injury Right sided hydronephrosis and patient had a ureteral stent on November 03, 2024 History of 2 strokes with residual right hemiparesis, dysarthria right facial droop. Diabetes mellitus Benign hypertension Tobacco use Plan: I ordered a CT of the head I ordered vitamin B12, folate level. Nephrology is on board Will defer the rest of the medical management department other specialist. Thank you for the consultation. Time with Patient: Greater than 30
[2024-11-17 14:49] LABS: Protein, Total 5.6 g/dL (6.2-8.2)
[2024-11-17 15:01] LABS: Hepatitis A Antibody IgM Nonreactive (Nonreactive); Hepatitis B Core IgM Nonreactive (Nonreactive); Hepatitis B Surface Antigen Nonreactive (Nonreactive); Hepatitis C IgG Antibody Nonreactive (Nonreactive)
[2024-11-17 16:16] LABS: Anti-DNA, DS unit <1.0 IU/mL; DNA Double-Stranded Negative (Negative)
[2024-11-17 17:00] LABS: Glucose,Whole Blood 184 mg/dL (70-110)
[2024-11-17 17:32] LABS: Appearance,Urine Turbid (Clear); Bacteria,Urine Many /hpf; Bilirubin,Urine Negative (Negative); Blood,Urine Large (Negative); Color,Urine Dark Red; Glucose,Urine (UA) Negative (Negative); Ketones,Urine Negative (Negative); Leukocyte Esterase,Urine Large (Negative); Nitrite,Urine Negative (Negative); Protein,Urine 3+ (Negative); RBC,Urine >182 /hpf (0-5); Urobilinogen,Urine <2.0 mg/dL (<2.0); WBC,Urine >182 /hpf (0-5)
[2024-11-17 17:33] LABS: Specific Gravity,Urine 1.018 (1.001-1.035)
--- NOTE | 2024-11-17 17:46 | P.PN ---
Subjective Progress Note Date: 11/17/24 No acute overnight event, CT showed stent with adequate location, no evidence of hydronephrosis. Objective - Vital Signs Vital signs: Vital Signs Temp 98.2 F 11/17/24 11:49 Pulse 85 11/17/24 16:47 Resp 17 11/17/24 11:49 BP 116/70 11/17/24 16:47 Pulse Ox 98 11/17/24 16:47 FiO2 Intake & Output 11/16/24 11/17/24 11/17/24 18:59 06:59 18:59 Intake Total 640 240 720 Output Total 200 650 700 Balance 440 -410 20 Weight 90.265 kg Intake: Oral 640 240 720 Output: Urine 650 300 Stool 200 400 Other: Voiding Method Diaper Diaper Diaper Incontinent Incontinent External Catheter External Catheter # Voids 2 - Constitutional General appearance: Present: no acute distress - Gastrointestinal General gastrointestinal: Present: soft. Absent: distended, tenderness - Psychiatric Psychiatric: Present: A&O x's 3 - Labs CBC & Chem 7: 11/16/24 09:42 11/17/24 05:28 Labs: Abnormal Lab Results - Last 24 Hours (Table) 11/16/24 11/17/24 11/17/24 Range/Units 20:12 05:28 05:28 Carbon Dioxide 19.7 L (21.6-31.8) mmol/L Anion Gap 16.30 H (4.00-12.00) mmol/L BUN 64.2 H (9.0-27.0) mg/dL Creatinine 7.0 H (0.6-1.5) mg/dL Est GFR (CKD-EPI) 8 L (>=60) BUN/Creatinine Ratio 9.17 L (12.00-20.00) Ratio Glucose 162 H (70-110) mg/dL POC Glucose (mg/dL) 153 H (70-110) mg/dL Hemoglobin A1c 7.0 H (<=6.0) % Total Protein (PEP) (6.2-8.2) g/dL Urine Protein (Negative) Urine Blood (Negative) Ur Leukocyte Esterase (Negative) Urine RBC (0-5) /hpf Urine WBC (0-5) /hpf Urine Bacteria (None) /hpf 11/17/24 11/17/24 11/17/24 Range/Units 06:59 11:32 11:47 Carbon Dioxide (21.6-31.8) mmol/L Anion Gap (4.00-12.00) mmol/L BUN (9.0-27.0) mg/dL Creatinine (0.6-1.5) mg/dL Est GFR (CKD-EPI) (>=60) BUN/Creatinine Ratio (12.00-20.00) Ratio Glucose (70-110) mg/dL POC Glucose (mg/dL) 171 H 123 H (70-110) mg/dL Hemoglobin A1c (<=6.0) % Total Protein (PEP) 5.6 L (6.2-8.2) g/dL Urine Protein (Negative) Urine Blood (Negative) Ur Leukocyte Esterase (Negative) Urine RBC (0-5) /hpf Urine WBC (0-5) /hpf Urine Bacteria (None) /hpf 11/17/24 11/17/24 Range/Units 16:58 17:05 Carbon Dioxide (21.6-31.8) mmol/L Anion Gap (4.00-12.00) mmol/L BUN (9.0-27.0) mg/dL Creatinine (0.6-1.5) mg/dL Est GFR (CKD-EPI) (>=60) BUN/Creatinine Ratio (12.00-20.00) Ratio Glucose (70-110) mg/dL POC Glucose (mg/dL) 184 H (70-110) mg/dL Hemoglobin A1c (<=6.0) % Total Protein (PEP) (6.2-8.2) g/dL Urine Protein 3+ H (Negative) Urine Blood Large H (Negative) Ur Leukocyte Esterase Large H (Negative) Urine RBC >182 H (0-5) /hpf Urine WBC >182 H (0-5) /hpf Urine Bacteria Many H (None) /hpf Microbiology - Last 24 Hours (Table) 11/15/24 20:40 Urine Culture - Preliminary Urine,Voided Assessment and Plan Assessment: 64-year-old male admitted to the hospital with acute kidney injury. Recent cystoscopy and right stent insertion by Dr Murdock 10/28. He is been having poor p.o. intake, ultrasound showed mild right-sided hydronephrosis, CT abdomen and pelvis showed no hydronephrosis, stent in adequate location. From urology standpoint there is no obstructive etiology as the cause of patient acute kidney injury. He can follow-up as an outpatient with Dr. Murdock
[2024-11-17 20:15] LABS: Glucose,Whole Blood 222 mg/dL (70-110)
[2024-11-18 07:04] LABS: Glucose,Whole Blood 148 mg/dL (70-110)
[2024-11-18 09:17] LABS: Albumin 3.5 g/dL (3.8-4.9); BUN/Creat Ratio 9.87 Ratio (12.00-20.00); Blood Urea Nitrogen 61.2 mg/dL (9.0-27.0); Carbon Dioxide 26.1 mmol/L (21.6-31.8); Chloride 104 mmol/L (96-109); Glucose 133 mg/dL (70-110); Magnesium 1.7 mg/dL (1.5-2.4); Potassium 3.6 mmol/L (3.5-5.5); Sodium 146 mmol/L (135-145)
--- NOTE | 2024-11-18 10:29 | P.PN ---
Subjective Patient is seen in follow-up for acute kidney injury. Renal function gradually improving. Nonoliguric. Oral intake fair. Denies chest pain or shortness of breath. Vital signs are stable. General: No acute distress. HEENT: Head exam is unremarkable. LUNGS: No audible rhonchi or wheezes. HEART: Rate and Rhythm are regular. ABDOMEN: Nontender. EXTREMITITES: No edema. Objective - Vital Signs Vital signs: Vital Signs Temp 98.3 F 11/18/24 06:59 Pulse 87 11/18/24 06:59 Resp 17 11/18/24 06:59 BP 108/72 11/18/24 06:59 Pulse Ox 98 11/18/24 06:59 FiO2 Intake & Output 11/17/24 11/18/24 11/18/24 18:59 06:59 18:59 Intake Total 720 Output Total 700 400 Balance 20 -400 Intake: Oral 720 Output: Urine 300 300 Stool 400 Urine/Stool Mix 100 Other: Voiding Method Diaper Diaper Incontinent Incontinent External Catheter External Catheter - Labs CBC & Chem 7: 11/16/24 09:42 11/18/24 05:49 Labs: Abnormal Lab Results - Last 24 Hours (Table) 11/17/24 11/17/24 11/17/24 Range/Units 11:32 11:32 11:47 Sodium (135-145) mmol/L Anion Gap (4.00-12.00) mmol/L BUN (9.0-27.0) mg/dL Creatinine (0.6-1.5) mg/dL Est GFR (CKD-EPI) (>=60) BUN/Creatinine Ratio (12.00-20.00) Ratio Glucose (70-110) mg/dL POC Glucose (mg/dL) 123 H (70-110) mg/dL Total Protein (PEP) 5.6 L (6.2-8.2) g/dL Albumin (3.8-4.9) g/dL Urine Protein (Negative) Urine Blood (Negative) Ur Leukocyte Esterase (Negative) Urine RBC (0-5) /hpf Urine WBC (0-5) /hpf Urine Bacteria (None) /hpf Tot Complement (CH50) >99 H (42 - 95) U/mL 11/17/24 11/17/24 11/17/24 Range/Units 16:58 17:05 20:13 Sodium (135-145) mmol/L Anion Gap (4.00-12.00) mmol/L BUN (9.0-27.0) mg/dL Creatinine (0.6-1.5) mg/dL Est GFR (CKD-EPI) (>=60) BUN/Creatinine Ratio (12.00-20.00) Ratio Glucose (70-110) mg/dL POC Glucose (mg/dL) 184 H 222 H (70-110) mg/dL Total Protein (PEP) (6.2-8.2) g/dL Albumin (3.8-4.9) g/dL Urine Protein 3+ H (Negative) Urine Blood Large H (Negative) Ur Leukocyte Esterase Large H (Negative) Urine RBC >182 H (0-5) /hpf Urine WBC >182 H (0-5) /hpf Urine Bacteria Many H (None) /hpf Tot Complement (CH50) (42 - 95) U/mL 11/18/24 11/18/24 Range/Units 05:49 07:03 Sodium 146 H (135-145) mmol/L Anion Gap 15.90 H (4.00-12.00) mmol/L BUN 61.2 H (9.0-27.0) mg/dL Creatinine 6.2 H (0.6-1.5) mg/dL Est GFR (CKD-EPI) 10 L (>=60) BUN/Creatinine Ratio 9.87 L (12.00-20.00) Ratio Glucose 133 H (70-110) mg/dL POC Glucose (mg/dL) 148 H (70-110) mg/dL Total Protein (PEP) (6.2-8.2) g/dL Albumin 3.5 L (3.8-4.9) g/dL Urine Protein (Negative) Urine Blood (Negative) Ur Leukocyte Esterase (Negative) Urine RBC (0-5) /hpf Urine WBC (0-5) /hpf Urine Bacteria (None) /hpf Tot Complement (CH50) (42 - 95) U/mL Assessment and Plan Plan: Assessment: 1. Acute kidney injury secondary to ATN versus obstructive uropathy. Creatinine 8.37 on admission and is 6.2 today. Mild hydronephrosis noted on the right side on imaging. Not noted on renal CT. Creatinine earlier this month was near 2. 2. Right-sided hydronephrosis with cystoscopy and right ureteral stent placement November 03, 2024. 3. Metabolic acidosis secondary to acute kidney injury and IV fluids. Improved with bicarb drip. 4. Anemia. Iron replete. Component of chronic illness. On Aranesp. 5. Diabetes mellitus. 6. Benign hypertension. Controlled. 7. Nephrolithiasis. 8. Hypernatremia from lack of oral water intake. Plan: Stop bicarb drip. Start half-normal saline. Bladder scan negative for urinary retention. Follow-up serologies. Negative so far. Check urine eosinophils. Will consider kidney biopsy for definitive diagnosis if no improvement in renal function over the weekend. Continue to assess daily for need for renal replacement therapy. No urgency at this time. Case discussed with patient and his present at bedside.
--- NOTE | 2024-11-18 10:30 | P.PN ---
Subjective Progress Note Date: 11/18/24 H&P Date: 11/16/24 Chief Complaint: Acute renal This is a 64-year-old gentleman with past medical history significant for recent inpatient admission with right hydronephrosis secondary to right ureteral calculus, right renal calculi- underwent cystoscopy with removal of bladder calculi, right retrograde pyelogram and right ureteral stent insertion on 11/03 and discharged home on 11/04/2024. Past medical history also significant for CVA/TIA with residual right-sided weakness, colectomy, diabetes mellitus, A- fib, hypertension, hyperlipidemia, sleep apnea uses CPAP, former nicotine dependence and multiple other medical issues. at bedside,reports they had gone to [place] post discharge and patient appeared a" little off "there. Reports decreased appetite ,complained of intermittent right flank pain. Denies hematuria. Denies vomiting. Denies diarrhea. Over the last 3 days patient's confusion, muscle strength /weakness worsened and patient was brought into the ER.on admission creatinine 8.37, BUN 70, bicarb 10 .lactic acid 2.4, phosphorus 6.8 .hemoglobin 9.5, platelets 323, INR 1 afebrile, normal WBC .urine reported greater than 182 RBCs and WBCs.repeat labs and urine culture pending. Renal ultrasound reported mild right hydronephrosis, bilateral nonobstructing renal calculi, right renal cyst, multiple probable bladder stones, cholelithiasis. Minimal post void residuals reported no greater than 75 mLs. Urology and nephrology consults in place.IV fluid hydration/bicarb drip initiated. 11/17/2024 this morning,patient reports he still does not feel quite right and reports his entire lower lip and left hand are numb, timeframe/onset unclear- vague historian. Moving left hand and digits. consumed 50% of dinner last night, 25% of breakfast this morning. maintained on bicarb drip ,renal function slowly improving, bicarb increased to 19.7, BUN 64.2, creatinine 7. Bladder scan reporting negative urinary retention .blood sugars controlled, hemoglobin A1c 7. Iron studies noted.Aranesp added to med regimine per nephrology. Renal CT reporting placement of right ureteral stent with resolution of right hydronephrosis, resolution of 2 large right renal calcifications 1 in the UPJ and the other in the lower pole of the right kidney, persistent bilateral nonobstructing renal calcifications. 11/18/2024 Evaluated by neurology yesterday regarding numbness of left hand and lower lip. Patient denied left hand numbness to neurologist at the time of his examination. This morning reports no left hand numbness, lower lip numbness "better".brain CT performed reporting no acute intracranial hemorrhage or midline shift, no significant change from most recent prior CT. vitamin B12 630, folate 6.7. Continue 100% of dinner, breakfast recently arrived at bedside. Maintained on bicarb drip.24-hour I&O inaccurate. labs pending. Afebrile, Tmax 99, urine culture in progress. Objective - Vital Signs Vital signs: Vital Signs Temp 98.3 F 11/18/24 06:59 Pulse 87 11/18/24 06:59 Resp 17 11/18/24 06:59 BP 108/72 11/18/24 06:59 Pulse Ox 98 11/18/24 06:59 FiO2 Intake & Output 11/17/24 11/18/24 11/18/24 18:59 06:59 18:59 Intake Total 720 Output Total 700 400 Balance 20 -400 Intake: Oral 720 Output: Urine 300 300 Stool 400 Urine/Stool Mix 100 Other: Voiding Method Diaper Diaper Incontinent Incontinent External Catheter External Catheter - Exam General:alert and oriented x 3, no acute distress. Neck: neck is supple, no JVD. Cardiovascular: S1S2 is normal, There is a regular rate and rhythm. No murmur, rub or gallop is appreciated. Respiratory: Unlabored, equal air entry ,lungs are clear to auscultation. Gastrointestinal: Soft, non-distended, right lateral mid lower quadrant/flank tenderness. no rebound or guarding present. Ostomy present, +Bowel sounds. EXTREM: no pedal edema. There is no calf tenderness or swelling. Neurological: CN II-XII intact, no focal deficit. Strength and sensation grossly intact: Right-sided residual weakness from prior CVA. Skin: Skin is warm and dry, no rashes noted. - Labs CBC & Chem 7: 11/16/24 09:42 11/18/24 05:49 Labs: Abnormal Lab Results - Last 24 Hours (Table) 11/17/24 11/17/24 11/17/24 Range/Units 11:32 11:32 11:47 Sodium (135-145) mmol/L Anion Gap (4.00-12.00) mmol/L BUN (9.0-27.0) mg/dL Creatinine (0.6-1.5) mg/dL Est GFR (CKD-EPI) (>=60) BUN/Creatinine Ratio (12.00-20.00) Ratio Glucose (70-110) mg/dL POC Glucose (mg/dL) 123 H (70-110) mg/dL Total Protein (PEP) 5.6 L (6.2-8.2) g/dL Albumin (3.8-4.9) g/dL Urine Protein (Negative) Urine Blood (Negative) Ur Leukocyte Esterase (Negative) Urine RBC (0-5) /hpf Urine WBC (0-5) /hpf Urine Bacteria (None) /hpf Tot Complement (CH50) >99 H (42 - 95) U/mL 11/17/24 11/17/24 11/17/24 Range/Units 16:58 17:05 20:13 Sodium (135-145) mmol/L Anion Gap (4.00-12.00) mmol/L BUN (9.0-27.0) mg/dL Creatinine (0.6-1.5) mg/dL Est GFR (CKD-EPI) (>=60) BUN/Creatinine Ratio (12.00-20.00) Ratio Glucose (70-110) mg/dL POC Glucose (mg/dL) 184 H 222 H (70-110) mg/dL Total Protein (PEP) (6.2-8.2) g/dL Albumin (3.8-4.9) g/dL Urine Protein 3+ H (Negative) Urine Blood Large H (Negative) Ur Leukocyte Esterase Large H (Negative) Urine RBC >182 H (0-5) /hpf Urine WBC >182 H (0-5) /hpf Urine Bacteria Many H (None) /hpf Tot Complement (CH50) (42 - 95) U/mL 11/18/24 11/18/24 Range/Units 05:49 07:03 Sodium 146 H (135-145) mmol/L Anion Gap 15.90 H (4.00-12.00) mmol/L BUN 61.2 H (9.0-27.0) mg/dL Creatinine 6.2 H (0.6-1.5) mg/dL Est GFR (CKD-EPI) 10 L (>=60) BUN/Creatinine Ratio 9.87 L (12.00-20.00) Ratio Glucose 133 H (70-110) mg/dL POC Glucose (mg/dL) 148 H (70-110) mg/dL Total Protein (PEP) (6.2-8.2) g/dL Albumin 3.5 L (3.8-4.9) g/dL Urine Protein (Negative) Urine Blood (Negative) Ur Leukocyte Esterase (Negative) Urine RBC (0-5) /hpf Urine WBC (0-5) /hpf Urine Bacteria (None) /hpf Tot Complement (CH50) (42 - 95) U/mL Assessment and Plan Assessment: Acute renal failure, in a patient with poor appetite, etiology unclear. Recent admission with right hydronephrosis secondary to right ureteral calculus, right renal calculi, underwent cystoscopy with removal of bladder calculi, right retrograde pyelogram and right ureteral stent insertion on 11/03/2024 and discharged home on 11/04/2024. Ultrasound reporting mild right sided hydronephrosis. Renal CT reporting placement of right ureteral stent with resolution of right hydronephrosis, resolution of 2 large right renal calcifications 1 in the UPJ and the other in the lower pole of the right kidney, persistent bilateral nonobstructing renal calcifications. Left hand and lower lip numbness, probably related to the above along with electrolyte imbalance as per neurology. Left hand numbness resolved, lip numbness improving. Lactic acidosis Metabolic acidosis Anemia, multifactorial , secondary to all the above ,aranesp added to med regimine. Sleep apnea uses CPAP Hypertension Hyperlipidemia Diabetes mellitus History of CVA, TIA Prior nicotine dependence Plan: Continue on current medication regimen ,monitoring and symptomatic treatment. Strict I&O .labs pending. IV fluids as per nephrology. avoid nephrotoxins.Urine culture in progress.Close monitoring of renal function, with repeat labs ordered for a.m. evaluated by PT yesterday recommending home with home care only if patient has 24/7 assist at this time, otherwise subacute rehab. at [facility]. The impression and plan of care has been dictated as directed. : I performed a history and examination of this patient, discussed the same with the dictator. I agree with the dictator's note ,documented as a scribe. Any additional findings or plans will be noted.
[2024-11-18] MEDS: SODIUM CHLORIDE 0.45% 1,000 ML IV SCH (11:22)
[2024-11-18] MEDS: POTASSIUM CHLORIDE ER 20 MEQ TAB.ER PO STA (11:22)
[2024-11-18 12:25] LABS: Glucose,Whole Blood 250 mg/dL (70-110)
--- NOTE | 2024-11-18 12:49 | P.PN ---
Subjective Progress Note Date: 11/18/24 I am following up with the patient and patient is accompanied with his and he states that he has numbness over the left lower lip but denies any further numbness. He denies any numbness in extremities. Otherwise no new neurological issues. Objective - Vital Signs Vital signs: Vital Signs Temp 98.3 F 11/18/24 06:59 Pulse 87 11/18/24 06:59 Resp 17 11/18/24 06:59 BP 108/72 11/18/24 06:59 Pulse Ox 98 11/18/24 06:59 FiO2 Intake & Output 11/17/24 11/18/24 11/18/24 18:59 06:59 18:59 Intake Total 720 Output Total 700 400 Balance 20 -400 Intake: Oral 720 Output: Urine 300 300 Stool 400 Urine/Stool Mix 100 Other: Voiding Method Diaper Diaper Incontinent Incontinent External Catheter External Catheter - Exam GENERAL: The patient is lying in bed and is not in acute distress. NEUROLOGICAL: Higher mental function: The patient is awake, alert, oriented to self, place and time. Patient is following commands. No aphasia and no neglect. Cranial nerves: The pupils are round, equal and reactive to light and accommodation. Visual wu are full to confrontation throughout. Extraocular movement is intact no nystagmus is noted. Facial sensation is normal to touch throughout. The facial strength is right lower facial weakness that is mild. Tongue is midline and moved [id number] without any difficulty. Mild dysarthria is noted. Motor: The strength is right upper extremity strength proximally is 1-2 while the rest of the right upper extremity is 0 out of 5. Patient on the right lower extremity has 4+. Left upper and lower extremities 5 out of 5. Decreased tone and bulk over the right upper extremity. Cerebellum: Normal finger to nose on left but cannot perform right because of we akness. Sensation: Sensation is normal to touch throughout. Some of the workup during this hospital visit consisted of: His creatinine is as high as 8.37 Hemoglobin A1c is 7.0 Calcium is 9.9, Phosphorus is 6.8 Magnesium is 1.8 Vitamin B12 is [address] head: It is reported as no acute intracranial hemorrhage or midline shift. No significant change from most recent prior CT. - Labs CBC & Chem 7: 11/16/24 09:42 11/18/24 05:49 Labs: Abnormal Lab Results - Last 24 Hours (Table) 11/17/24 11/17/24 11/17/24 Range/Units 11:32 11:32 16:58 Sodium (135-145) mmol/L Anion Gap (4.00-12.00) mmol/L BUN (9.0-27.0) mg/dL Creatinine (0.6-1.5) mg/dL Est GFR (CKD-EPI) (>=60) BUN/Creatinine Ratio (12.00-20.00) Ratio Glucose (70-110) mg/dL POC Glucose (mg/dL) 184 H (70-110) mg/dL Total Protein (PEP) 5.6 L (6.2-8.2) g/dL Albumin (3.8-4.9) g/dL Urine Protein (Negative) Urine Blood (Negative) Ur Leukocyte Esterase (Negative) Urine RBC (0-5) /hpf Urine WBC (0-5) /hpf Urine Bacteria (None) /hpf Tot Complement (CH50) >99 H (42 - 95) U/mL 11/17/24 11/17/24 11/18/24 Range/Units 17:05 20:13 05:49 Sodium 146 H (135-145) mmol/L Anion Gap 15.90 H (4.00-12.00) mmol/L BUN 61.2 H (9.0-27.0) mg/dL Creatinine 6.2 H (0.6-1.5) mg/dL Est GFR (CKD-EPI) 10 L (>=60) BUN/Creatinine Ratio 9.87 L (12.00-20.00) Ratio Glucose 133 H (70-110) mg/dL POC Glucose (mg/dL) 222 H (70-110) mg/dL Total Protein (PEP) (6.2-8.2) g/dL Albumin 3.5 L (3.8-4.9) g/dL Urine Protein 3+ H (Negative) Urine Blood Large H (Negative) Ur Leukocyte Esterase Large H (Negative) Urine RBC >182 H (0-5) /hpf Urine WBC >182 H (0-5) /hpf Urine Bacteria Many H (None) /hpf Tot Complement (CH50) (42 - 95) U/mL 11/18/24 11/18/24 Range/Units 07:03 12:11 Sodium (135-145) mmol/L Anion Gap (4.00-12.00) mmol/L BUN (9.0-27.0) mg/dL Creatinine (0.6-1.5) mg/dL Est GFR (CKD-EPI) (>=60) BUN/Creatinine Ratio (12.00-20.00) Ratio Glucose (70-110) mg/dL POC Glucose (mg/dL) 148 H 250 H (70-110) mg/dL Total Protein (PEP) (6.2-8.2) g/dL Albumin (3.8-4.9) g/dL Urine Protein (Negative) Urine Blood (Negative) Ur Leukocyte Esterase (Negative) Urine RBC (0-5) /hpf Urine WBC (0-5) /hpf Urine Bacteria (None) /hpf Tot Complement (CH50) (42 - 95) U/mL Assessment and Plan Assessment: This is a 64-year-old gentleman who presents emergency department because of kidney stones. He is having worsening of the kidney function with elevated phosphorus. He also complained of lower lip numbness today. Lower lip numbness likely due to electrolyte imbalance with worsening of the kidney function Altered mental status due to metabolic encephalopathy--improved Acute kidney injury--slight trending down Low normal folate, 6.70 Right sided hydronephrosis and patient had a ureteral stent on November 03, 2024 History of 2 strokes with residual right hemiparesis, dysarthria right facial droop. Diabetes mellitus Benign hypertension Tobacco use Plan: Because of low normal folic acid, I started the patient on folic acid 1 mg daily. Nephrology is on board Will defer the rest of the medical management department other specialist. Plan discussed with the patient and his was at bedside Will follow-up with the patient sporadically Dr. Palomo resume neurology service tomorrow AM Time with Patient: Less than 30
[2024-11-18] MEDS: FOLIC ACID 1 MG TAB PO SCH (13:12)
[2024-11-18 14:16] LABS: C-ANCA <1:20 Titer (<1:20)
[2024-11-18 17:13] LABS: Glucose,Whole Blood 220 mg/dL (70-110)
[2024-11-18 20:05] LABS: Glucose,Whole Blood 122 mg/dL (70-110)
[2024-11-19 07:17] LABS: Glucose,Whole Blood 130 mg/dL (70-110)
[2024-11-19 09:23] LABS: BUN/Creat Ratio 10.08 Ratio (12.00-20.00); Blood Urea Nitrogen 50.4 mg/dL (9.0-27.0); Calcium 8.9 mg/dL (8.7-10.3); Carbon Dioxide 24.8 mmol/L (21.6-31.8); Chloride 102 mmol/L (96-109); Glucose 125 mg/dL (70-110); Magnesium 1.7 mg/dL (1.5-2.4); Sodium 138 mmol/L (135-145)
[2024-11-19 09:24] LABS: Albumin 3.5 g/dL (3.8-4.9)
--- NOTE | 2024-11-19 10:30 | P.PN ---
Dharmesh Grimaldo is admitted for acute renal failure and metabolic encephalopathy. He underwent a right ureteral stent after being admitted several weeks ago for hematuria and nephrolithiasis. He is kidney function continue to improve. His mentation continues to improve. He has no significant plaints today other than right hip pain. Vital signs show he is afebrile heart rate 88 respirate 17 blood pressure stable pulse oximetry 97% on room air. GFR today is now 12. Objective - Vital Signs Vital signs: Vital Signs Temp 98.8 F 11/19/24 08:00 Pulse 88 11/19/24 08:00 Resp 17 11/19/24 08:00 BP 117/72 11/19/24 08:00 Pulse Ox 97 11/19/24 08:00 FiO2 Intake & Output 11/18/24 11/19/24 11/19/24 18:59 06:59 18:59 Intake Total 590 Output Total 800 1300 Balance -800 -710 Intake: Oral 590 Output: Urine 650 800 Stool 150 500 Other: Voiding Method Diaper Diaper Diaper Incontinent External Catheter External Catheter External Catheter - Exam General:alert and oriented x 3, no acute distress. Neck: neck is supple, no JVD. Cardiovascular: S1S2 is normal, There is a regular rate and rhythm. No murmur, rub or gallop is appreciated. Respiratory: Unlabored, equal air entry ,lungs are clear to auscultation. Gastrointestinal: Soft, non-distended, right lateral mid lower quadrant/flank tenderness. no rebound or guarding present. Ostomy present, +Bowel sounds. EXTREM: no pedal edema. There is no calf tenderness or swelling. Neurological: CN II-XII intact, no focal deficit. Strength and sensation grossly intact: Right-sided residual weakness from prior CVA. Skin: Skin is warm and dry, no rashes noted. - Labs CBC & Chem 7: 11/16/24 09:42 11/19/24 05:52 Labs: Abnormal Lab Results - Last 24 Hours (Table) 11/18/24 11/18/24 11/18/24 Range/Units 12:11 17:11 20:04 BUN (9.0-27.0) mg/dL Creatinine (0.6-1.5) mg/dL Est GFR (CKD-EPI) (>=60) BUN/Creatinine Ratio (12.00-20.00) Ratio Glucose (70-110) mg/dL POC Glucose (mg/dL) 250 H 220 H 122 H (70-110) mg/dL Albumin (3.8-4.9) g/dL 11/19/24 11/19/24 Range/Units 05:52 07:05 BUN 50.4 H (9.0-27.0) mg/dL Creatinine 5.0 H (0.6-1.5) mg/dL Est GFR (CKD-EPI) 12 L (>=60) BUN/Creatinine Ratio 10.08 L (12.00-20.00) Ratio Glucose 125 H (70-110) mg/dL POC Glucose (mg/dL) 130 H (70-110) mg/dL Albumin 3.5 L (3.8-4.9) g/dL Assessment and Plan Plan: Assessment: Acute renal failure with, in a patient with poor appetite, etiology unclear. Recent admission with right hydronephrosis secondary to right ureteral calculus, right renal calculi, underwent cystoscopy with removal of bladder calculi, right retrograde pyelogram and right ureteral stent insertion on 11/03/2024 and discharged home on 11/04/2024. Ultrasound reporting mild right sided hydronephrosis. Renal CT reporting placement of right ureteral stent with resolution of right hydronephrosis, resolution of 2 large right renal calci fications 1 in the UPJ and the other in the lower pole of the right kidney, persistent bilateral nonobstructing renal calcifications. Suspect blood clot he is at ongoing hematuria since the procedure Left hand and lower lip numbness, probably related to the above along with electrolyte imbalance as per neurology. Left hand numbness resolved, lip numbness improving. Lactic acidosis Metabolic acidosis Anemia, multifactorial , secondary to all the above ,aranesp added to med regimine. Sleep apnea uses CPAP Hypertension Hyperlipidemia Diabetes mellitus History of CVA, TIA Prior nicotine dependence Plan he continues to improve, wait on further recommendations from nephrology and/or neurology as needed. He is undergoing physical therapy and is doing well.
--- NOTE | 2024-11-19 10:36 | XR ---
Right hip. HISTORY: Pain COMPARISON: None. TECHNIQUE: 2 views right hip were obtained. FINDINGS: There is no fracture, dislocation, focal intraosseous or intra-articular abnormality. Incidental note is made of a right ureteral stent. IMPRESSION: No abnormality of the right hip. [facility], Workstation: [facility], 11/19/2024 10:34 AM
[2024-11-19 11:16] LABS: African American GFR (CKD) 15 (>60 ml/min/1.73 sqM); Anion Gap 10 mmol/L; Blood Urea Nitrogen 54 mg/dL (9-20); Calcium 9.1 mg/dL (8.4-10.2); Carbon Dioxide 23 mmol/L (22-30); Chloride 100 mmol/L (98-107); Glucose 179 mg/dL (74-99); Non-African American GFR(CKD) 13 (>60 ml/min/1.73 sqM); Potassium 4.5 mmol/L (3.5-5.1); Sodium 133 mmol/L (137-145)
[2024-11-19 12:37] LABS: Glucose,Whole Blood 137 mg/dL (70-110)
--- NOTE | 2024-11-19 12:57 | P.PN ---
Subjective Progress Note Date: 11/19/24 Patient is seen in follow-up for acute kidney injury. Renal function gradually improving. Nonoliguric. Oral intake fair. Denies chest pain or shortness of breath. Vital signs are stable. General: No acute distress. HEENT: Head exam is unremarkable. LUNGS: No audible rhonchi or wheezes. HEART: Rate and Rhythm are regular. ABDOMEN: Nontender. EXTREMITITES: No edema. Objective - Vital Signs Vital signs: Vital Signs Temp 98.8 F 11/19/24 08:00 Pulse 88 11/19/24 08:00 Resp 17 11/19/24 08:00 BP 117/72 11/19/24 08:00 Pulse Ox 97 11/19/24 08:00 FiO2 Intake & Output 11/18/24 11/19/24 11/19/24 18:59 06:59 18:59 Intake Total 590 Output Total 800 1300 Balance -800 -710 Intake: Oral 590 Output: Urine 650 800 Stool 150 500 Other: Voiding Method Diaper Diaper Diaper Incontinent External Catheter External Catheter External Catheter - Labs CBC & Chem 7: 11/16/24 09:42 11/19/24 10:37 Labs: Abnormal Lab Results - Last 24 Hours (Table) 11/18/24 11/18/24 11/19/24 Range/Units 17:11 20:04 05:52 Sodium (137-145) mmol/L BUN 50.4 H (9.0-27.0) mg/dL Creatinine 5.0 H (0.6-1.5) mg/dL Est GFR (CKD-EPI) 12 L (>=60) BUN/Creatinine Ratio 10.08 L (12.00-20.00) Ratio Glucose 125 H (70-110) mg/dL POC Glucose (mg/dL) 220 H 122 H (70-110) mg/dL Albumin 3.5 L (3.8-4.9) g/dL 11/19/24 11/19/24 11/19/24 Range/Units 07:05 10:37 12:29 Sodium 133 L (137-145) mmol/L BUN 54 H (9.0-27.0) mg/dL Creatinine 4.64 H (0.6-1.5) mg/dL Est GFR (CKD-EPI) (>=60) BUN/Creatinine Ratio (12.00-20.00) Ratio Glucose 179 H (70-110) mg/dL POC Glucose (mg/dL) 130 H 137 H (70-110) mg/dL Albumin (3.8-4.9) g/dL Assessment and Plan Assessment: Assessment: 1. Acute kidney injury secondary to ATN versus obstructive uropathy. Creatinine 8.37 on admission and is 6.2 ->4.6 today. Mild hydronephrosis noted on the right side on imaging. Not noted on renal CT. Creatinine earlier this month was near 2. 2. Right-sided hydronephrosis with cystoscopy and right ureteral stent placement November 03, 2024. 3. Metabolic acidosis secondary to acute kidney injury and IV fluids. Improved with bicarb drip. 4. Anemia. Iron replete. Component of chronic illness. On Aranesp. 5. Diabetes mellitus. 6. Benign hypertension. Controlled. 7. Nephrolithiasis. 8. Hypernatremia from lack of oral water intake. resolved, no sodium level is low Plan: Can continue half-normal saline for 24 hours, encourage PO intake Bladder scan negative for urinary retention. Follow-up serologies. Negative so far. Check urine eosinophils. Improved renal function, no need for kidney biopsy at this time Continue to assess daily for need for renal replacement therapy. No urgency at this time.
[2024-11-19 16:36] LABS: Glucose,Whole Blood 195 mg/dL (70-110)
[2024-11-19 20:18] LABS: Glucose,Whole Blood 239 mg/dL (70-110)
[2024-11-20 07:21] LABS: Glucose,Whole Blood 135 mg/dL (70-110)
--- NOTE | 2024-11-20 10:59 | P.PN ---
Dharmesh Grimaldo is admitted for acute renal failure and metabolic encephalopathy. He underwent a right ureteral stent after being admitted several weeks ago for hematuria and nephrolithiasis. He is kidney function continue to improve. His mentation continues to improve. He has no significant plaints today other than right hip pain. Vital signs show he is afebrile heart rate 88 respirate 17 blood pressure stable pulse oximetry 97% on room air. GFR today is now 12. November 20, 2024: Patient continues to be stable and improving. He remains on D5 water at 130 cc/h. He continues oral intake but it is minimal. He remains on her and asked for his anemia Eliquis for A-fib anticoagulation and his other home medications. He denies any chest pains pressure shortness of breath nausea or vomiting today. Vital signs remained stable. He remains afebrile. Labs for today are pending. Most recently GFR from yesterday is 15. Creatinine 4.64. Nephrology consultation reviewed. Regarding his right hip pain, right hip x-ray failed to show any abnormalities. Today's urine is much clear and strawlike. Objective - Vital Signs Vital signs: Vital Signs Temp 98.3 F 11/20/24 06:59 Pulse 71 11/20/24 06:59 Resp 17 11/20/24 06:59 BP 139/82 11/20/24 06:59 Pulse Ox 98 11/20/24 06:59 FiO2 Intake & Output 11/19/24 11/20/24 11/20/24 18:59 06:59 18:59 Intake Total 480 Output Total 850 1600 Balance -850 -1120 Intake: Oral 480 Output: Urine 700 1000 Stool 150 600 Other: Voiding Method Diaper Diaper Diaper External Catheter External Catheter External Catheter - Exam General:alert and oriented x 3, no acute distress. Neck: neck is supple, no JVD. Cardiovascular: S1S2 is normal, There is a regular rate and rhythm. No murmur, rub or gallop is appreciated. Respiratory: Unlabored, equal air entry ,lungs are clear to auscultation. Gastrointestinal: Soft, non-distended, right lateral mid lower quadrant/flank tenderness. no rebound or guarding present. Ostomy present, distended today, +Bowel sounds. EXTREM: no pedal edema. There is no calf tenderness or swelling. Neurological: CN II-XII intact, no focal deficit. Strength and sensation grossly intact: Right-sided residual weakness from prior CVA. Skin: Skin is warm and dry, no rashes noted. - Labs CBC & Chem 7: 11/16/24 09:42 11/19/24 10:37 Labs: Abnormal Lab Results - Last 24 Hours (Table) 11/19/24 11/19/24 11/19/24 Range/Units 10:37 12:29 16:27 Sodium 133 L (137-145) mmol/L BUN 54 H (9-20) mg/dL Creatinine 4.64 H (0.66-1.25) mg/dL Glucose 179 H (74-99) mg/dL POC Glucose (mg/dL) 137 H 195 H (70-110) mg/dL 11/19/24 11/20/24 Range/Units 20:16 06:59 Sodium (137-145) mmol/L BUN (9-20) mg/dL Creatinine (0.66-1.25) mg/dL Glucose (74-99) mg/dL POC Glucose (mg/dL) 239 H 135 H (70-110) mg/dL Microbiology - Last 24 Hours (Table) 11/15/24 20:40 Urine Culture - Final Urine,Voided Enterobacter cloacae Enterococcus faecalis Assessment and Plan Plan: Assessment: Acute renal failure with, in a patient with poor appetite, etiology unclear. Recent admission with right hydronephrosis secondary to right ureteral calculus, right renal calculi, recent cystoscopy with removal of bladder calculi, right retrograde pyelogram and right ureteral stent insertion on 11/03/2024 and discharged home on 11/04/2024. Ultrasound reporting mild right sided hydronephrosis. Renal CT reporting placement of right ureteral stent with resolution of right hydronephrosis, resolution of 2 large right renal calcifications 1 in the UPJ and the other in the lower pole of the right kidney, persistent bilateral nonobstructing renal calcifications. Suspect blood clot he is at ongoing hematuria since the procedure Left hand and lower lip numbness, probably related to the above along with electrolyte imbalance as per neurology. Left hand numbness resolved, lip numbness improving. Lactic acidosis Metabolic acidosis Anemia, multifactorial , secondary to all the above ,aranesp added to med regimine. Sleep apnea uses CPAP Hypertension Hyperlipidemia Diabetes mellitus History of CVA, TIA Prior nicotine dependence Plan he continues to improve, wait on further recommendations from nephrology and/or neurology as needed. He is undergoing physical therapy and is doing well.
[2024-11-20 11:16] LABS: African American GFR (CKD) 18 (>60 ml/min/1.73 sqM); Anion Gap 6 mmol/L; Blood Urea Nitrogen 45 mg/dL (9-20); Carbon Dioxide 24 mmol/L (22-30); Chloride 106 mmol/L (98-107); Glucose 153 mg/dL (74-99); Non-African American GFR(CKD) 15 (>60 ml/min/1.73 sqM); Potassium 4.7 mmol/L (3.5-5.1); Sodium 136 mmol/L (137-145)
[2024-11-20 12:02] LABS: Glucose,Whole Blood 161 mg/dL (70-110)
[2024-11-20 17:36] LABS: Glucose,Whole Blood 212 mg/dL (70-110)
--- NOTE | 2024-11-20 19:14 | P.PN ---
Subjective Progress Note Date: 11/20/24 Patient is seen in follow-up for acute kidney injury. Renal function gradually improving. on gentle IVF. Nonoliguric. Oral intake fair. Denies chest pain or shortness of breath. Vital signs are stable. General: No acute distress. HEENT: Head exam is unremarkable. LUNGS: No audible rhonchi or wheezes. HEART: Rate and Rhythm are regular. ABDOMEN: Nontender. EXTREMITITES: No edema. Objective - Vital Signs Vital signs: Vital Signs Temp 98.8 F 11/20/24 12:28 Pulse 66 11/20/24 12:28 Resp 17 11/20/24 12:28 BP 147/87 11/20/24 12:28 Pulse Ox 100 11/20/24 12:28 FiO2 Intake & Output 11/20/24 11/20/24 11/21/24 06:59 18:59 06:59 Intake Total 480 Output Total 1600 550 Balance -1120 -550 Intake: Oral 480 Output: Urine 1000 400 Stool 600 150 Other: Voiding Method Diaper Diaper External Catheter External Catheter - Labs CBC & Chem 7: 11/16/24 09:42 11/20/24 10:37 Labs: Abnormal Lab Results - Last 24 Hours (Table) 11/19/24 11/20/24 11/20/24 Range/Units 20:16 06:59 10:37 Sodium 136 L (137-145) mmol/L BUN 45 H (9-20) mg/dL Creatinine 3.95 H (0.66-1.25) mg/dL Glucose 153 H (74-99) mg/dL POC Glucose (mg/dL) 239 H 135 H (70-110) mg/dL 11/20/24 11/20/24 Range/Units 12:00 17:33 Sodium (137-145) mmol/L BUN (9-20) mg/dL Creatinine (0.66-1.25) mg/dL Glucose (74-99) mg/dL POC Glucose (mg/dL) 161 H 212 H (70-110) mg/dL Microbiology - Last 24 Hours (Table) 11/15/24 20:40 Urine Culture - Final Urine,Voided Enterobacter cloacae Enterococcus faecalis Assessment and Plan Assessment: 1. Acute kidney injury secondary to ATN versus obstructive uropathy. Creatinine 8.37 on admission and is 6.2 ->4.6-> 3.9 today. Mild hydronephrosis noted on the right side on imaging. Not noted on renal CT. Creatinine earlier this month was near 2. 2. Right-sided hydronephrosis with cystoscopy and right ureteral stent placement November 03, 2024. 3. Metabolic acidosis secondary to acute kidney injury and IV fluids. Improved with bicarb drip. 4. Anemia. Iron replete. Component of chronic illness. On Aranesp. 5. Diabetes mellitus. 6. Benign hypertension. Controlled. 7. Nephrolithiasis. 8. Hypernatremia from lack of oral water intake. resolved, no sodium level is low Plan: Improving renal function, can discontinue IVF Encourage PO intake Bladder scan negative for urinary retention. Follow-up serologies. Negative so far. Improved renal function, no need for kidney biopsy at this time Continue to assess daily for need for renal replacement therapy. No urgency at this time.
[2024-11-20 20:18] LABS: Glucose,Whole Blood 187 mg/dL (70-110)
[2024-11-20] MEDS: MAG HYDROX/AL HYDROX/SIMETH 30 ML CUP PO STA (22:41)
[2024-11-21 07:26] LABS: Glucose,Whole Blood 131 mg/dL (70-110)
--- NOTE | 2024-11-21 10:06 | P.PN ---
Subjective Progress Note Date: 11/21/24 H&P Date: 11/16/24 Chief Complaint: Acute renal This is a 64-year-old gentleman with past medical history significant for recent inpatient admission with right hydronephrosis secondary to right ureteral calculus, right renal calculi- underwent cystoscopy with removal of bladder calculi, right retrograde pyelogram and right ureteral stent insertion on 11/03 and discharged home on 11/04/2024. Past medical history also significant for CVA/TIA ,colectomy, diabetes mellitus, A-fib, hypertension, hyperlipidemia, sleep apnea uses CPAP, former nicotine dependence and multiple other medical issues. at bedside,reports they had gone to [place] post discharge and patient appeared a" little off "there. Reports decreased appetite ,complained of intermittent right flank pain. Denies hematuria. Denies vomiting. Denies diarrhea. Over the last 3 days patient's confusion, muscle strength /weakness worsened and patient was brought into the ER.on admission creatinine 8.37, BUN 70, bicarb 10 .lactic acid 2.4, phosphorus 6.8 .hemoglobin 9.5, platelets 323, INR 1 afebrile, normal WBC .urine reported greater than 182 RBCs and WBCs.repeat labs and urine culture pending. Renal ultrasound reported mild right hydronephrosis, bilateral nonobstructing renal calculi, right renal cyst, multiple probable bladder stones, cholelithiasis. Minimal post void residuals reported no greater than 75 mLs. Urology and nephrology consults in place.IV fluid hydration/bicarb drip initiated. 11/17/2024 this morning,patient reports he still does not feel quite right and reports his entire lower lip and left hand are numb, timeframe/onset unclear- vague historian. Moving left hand and digits. consumed 50% of dinner last night, 25% of breakfast this morning. maintained on bicarb drip ,renal function slowly improving, bicarb increased to 19.7, BUN 64.2, creatinine 7. Bladder scan reporting negative urinary retention .blood sugars controlled, hemoglobin A1c 7. Iron studies noted.Aranesp added to med regimine per nephrology. Renal CT reporting placement of right ureteral stent with resolution of right hydronephrosis, resolution of 2 large right renal calcifications 1 in the UPJ and the other in the lower pole of the right kidney, persistent bilateral nonobstructing renal calcifications. 11/18/2024 Evaluated by neurology yesterday regarding numbness of left hand and lower lip. Patient denied left hand numbness to neurologist at the time of his examination. This morning reports no left hand numbness, lower lip numbness "better".brain CT performed reporting no acute intracranial hemorrhage or midline shift, no significant change from most recent prior CT. vitamin B12 630, folate 6.7. Continue 100% of dinner, breakfast recently arrived at bedside. Maintained on bicarb drip.24-hour I&O inaccurate. labs pending. Afebrile, Tmax 99, urine culture in progress. 11/19/2024 Dillan is admitted for acute renal failure and metabolic encephalopathy . He underwent a right ureteral stent after being admitted several weeks ago for hematuria and nephrolithiasis. He is kidney function continue to improve. His mentation continues to improve. He has no significant plaints today other than right hip pain. Vital signs show he is afebrile heart rate 88 respirate 17 blood pressure stable pulse oximetry 97% on room air. GFR today is now 12. November 20, 2024: Patient continues to be stable and improving. He remains on D5 water at 130 cc/h. He continues oral intake but it is minimal. He remains on her and asked for his anemia Eliquis for A-fib anticoagulation and his other home medications. He denies any chest pains pressure shortness of breath nausea or vomiting today. Vital signs remained stable. He remains afebrile. Labs for today are pending. Most recently GFR from yesterday is 15. Creatinine 4.64. Nephrology consultation reviewed. Regarding his right hip pain, right hip x-ray failed to show any abnormalities. Today's urine is much clear and strawlike. 11/21/2024 urine culture finalized with E. coli, Enterobacter cloque, enteric coccus faecalis. Zosyn initiated, ID consulted. Oral intake improving,renal function improving -yesterday GFR 18, creatinine decreased to 3.95. nephrology reporting no need for renal biopsy or urgent hemodialysis at this time. Labs pending. Spontaneously voiding, Objective - Vital Signs Vital signs: Vital Signs Temp 98.4 F 11/21/24 08:00 Pulse 75 11/21/24 08:00 Resp 18 11/21/24 08:00 BP 135/71 11/21/24 08:00 Pulse Ox 99 03/31/25 08:00 FiO2 Intake & Output 11/20/24 11/21/24 11/21/24 18:59 06:59 18:59 Intake Total 540 Output Total 550 1600 Balance -550 -1060 Intake: Oral 540 Output: Urine 400 1000 Stool 150 600 Other: Voiding Method Diaper Diaper Diaper External Catheter External Catheter External Catheter - Exam General:alert and oriented x 3, sitting up in chair, no acute distress. Neck: neck is supple, no JVD. Cardiovascular: S1S2 is normal,regular rate and rhythm. No murmur, rub or gallop appreciated. Respiratory: Unlabored, equal air entry ,lungs are clear to auscultation. Gastrointestinal: Soft, non-distended, nontender. no guarding,Ostomy present, +Bowel sounds. EXTREM: no pedal edema. There is no calf tenderness or swelling. Neurological: CN II-XII intact, no focal deficit. Strength and sensation grossly intact: Right-sided residual weakness from prior CVA. Skin: Skin is warm and dry, no rashes noted. - Labs CBC & Chem 7: 11/21/24 11:00 11/21/24 11:00 Labs: Abnormal Lab Results - Last 24 Hours (Table) 11/20/24 11/20/24 11/20/24 Range/Units 10:37 12:00 17:33 Sodium 136 L (137-145) mmol/L BUN 45 H (9-20) mg/dL Creatinine 3.95 H (0.66-1.25) mg/dL Glucose 153 H (74-99) mg/dL POC Glucose (mg/dL) 161 H 212 H (70-110) mg/dL 11/20/24 11/21/24 Range/Units 20:16 07:05 Sodium (137-145) mmol/L BUN (9-20) mg/dL Creatinine (0.66-1.25) mg/dL Glucose (74-99) mg/dL POC Glucose (mg/dL) 187 H 131 H (70-110) mg/dL Assessment and Plan Assessment: Acute renal failure, in a patient with poor appetite, etiology unclear. Recent admission with right hydronephrosis secondary to right ureteral calculus, right renal calculi, underwent cystoscopy with removal of bladder calculi, right retrograde pyelogram and right ureteral stent insertion on 11/03/2024 and discharged home on 11/04/2024. Ultrasound reporting mild right sided hydronephrosis. Renal CT reporting placement of right ureteral stent with resolution of right hydronephrosis, resolution of 2 large right renal calcif ications 1 in the UPJ and the other in the lower pole of the right kidney, persistent bilateral nonobstructing renal calcifications. Acute UTI with Enterobacter clocae, Enterococcus faecalis Left hand and lower lip numbness, probably related to the above along with electrolyte imbalance as per neurology. Left hand numbness resolved. Left lip numbness improving. Lactic acidosis, resolved Metabolic acidosis, status post bicarb drip, resolved Anemia, multifactorial , secondary to all the above ,aranesp added to med regimine. Sleep apnea uses CPAP Hypertension Hyperlipidemia Diabetes mellitus History of CVA, TIA Prior nicotine dependence Plan: Continue on current medication regimen ,monitoring and symptomatic treatment. Infectious disease consulted for antibiotic recommendations reg arding UTI. Avoid nephrotoxins. No renal biopsy or hemodialysis warranted at this time as per nephrology .continue close monitoring of renal function, with repeat labs ordered for a.m. PT/OT. The impression and plan of care has been dictated as directed. : I performed a history and examination of this patient, discussed the same with the dictator. I agree with the dictator's note ,documented as a scribe. Any additional findings or plans will be noted.
[2024-11-21 11:38] LABS: Basophils % (A) 0 %; Eosinophils # (A) 0.4 k/uL (0-0.7); Eosinophils % (A) 5 %; HGB 8.2 gm/dL (13.0-17.5); Hypochromasia Moderate; Lymphocytes # (A) 1.5 k/uL (1.0-4.8); Lymphocytes % (A) 17 %; MCH 28.6 pg (25.0-35.0); MCHC 31.7 g/dL (31.0-37.0); MCV 90.2 fL (80.0-100.0); Mean Platelet Volume 8.4; Monocytes # (A) 0.2 k/uL (0-1.0); Monocytes % (A) 3 %; Neutrophils # (A) 6.4 k/uL (1.3-7.7); Neutrophils % (A) 75 %; Platelet Count 300 k/uL (150-450); RBC 2.89 m/uL (4.30-5.90); RDW 14.4 % (11.5-15.5); WBC 8.6 k/uL (3.8-10.6)
[2024-11-21 11:47] LABS: African American GFR (CKD) 19 (>60 ml/min/1.73 sqM); Anion Gap 12 mmol/L; Blood Urea Nitrogen 38 mg/dL (9-20); Calcium 9.8 mg/dL (8.4-10.2); Carbon Dioxide 21 mmol/L (22-30); Chloride 107 mmol/L (98-107); Glucose 173 mg/dL (74-99); Non-African American GFR(CKD) 16 (>60 ml/min/1.73 sqM); Sodium 140 mmol/L (137-145)
[2024-11-21] MEDS: PIPERACILLIN-TAZOBACTAM 3.375 GM in SODIUM CHLORIDE 0.9% 100 ML IVPB SCH (12:01)
[2024-11-21 12:15] LABS: Glucose,Whole Blood 182 mg/dL (70-110)
--- NOTE | 2024-11-21 14:14 | P.PN ---
Subjective Patient is seen for follow-up for acute kidney injury. Renal function continues to improve. Serum creatinine down to 3.9 today. No significant complaints. Objective - Vital Signs Vital signs: Vital Signs Temp 98.5 F 11/21/24 12:05 Pulse 73 11/21/24 12:05 Resp 19 11/21/24 12:05 BP 117/79 11/21/24 12:05 Pulse Ox 98 11/21/24 12:05 FiO2 Intake & Output 11/20/24 11/21/24 11/21/24 18:59 06:59 18:59 Intake Total 540 Output Total 550 1600 Balance -550 -1060 Intake: Oral 540 Output: Urine 400 1000 Stool 150 600 Other: Voiding Method Diaper Diaper Diaper External Catheter External Catheter External Catheter - Exam Patient is awake, comfortable, no acute distress Alert oriented x 3 Examination of the heart S1 and S2 Examination of the lungs bilateral breath sounds are heard Abdomen is soft nontender Examination of lower extremities shows no significant edema [employer]ERSON exam grossly intact - Labs CBC & Chem 7: 11/21/24 11:00 11/21/24 11:00 Labs: Abnormal Lab Results - Last 24 Hours (Table) 11/20/24 11/20/24 11/21/24 Range/Units 17:33 20:16 07:05 RBC (4.30-5.90) m/uL Hgb (13.0-17.5) gm/dL Hct (39.0-53.0) % Carbon Dioxide (22-30) mmol/L BUN (9-20) mg/dL Creatinine (0.66-1.25) mg/dL Glucose (74-99) mg/dL POC Glucose (mg/dL) 212 H 187 H 131 H (70-110) mg/dL 11/21/24 11/21/24 11/21/24 Range/Units 11:00 11:00 12:02 RBC 2.89 L (4.30-5.90) m/uL Hgb 8.2 L (13.0-17.5) gm/dL Hct 26.0 L (39.0-53.0) % Carbon Dioxide 21 L (22-30) mmol/L BUN 38 H (9-20) mg/dL Creatinine 3.78 H (0.66-1.25) mg/dL Glucose 173 H (74-99) mg/dL POC Glucose (mg/dL) 182 H (70-110) mg/dL Assessment and Plan Assessment: 1. Acute kidney injury secondary to ATN versus obstructive uropathy. Creatinine 8.37 on admission and is 6.2 ->4.6-> 3.7 today. Mild hydronephrosis noted on the right side on imaging. Not noted on renal CT. Creatinine earlier this month was near 2. 2. Right-sided hydronephrosis with cystoscopy and right ureteral stent p lacement November 03, 2024. 3. Metabolic acidosis secondary to acute kidney injury and IV fluids. Improved with bicarb drip. 4. Anemia. Iron replete. Component of chronic illness. On Aranesp. 5. Diabetes mellitus. 6. Benign hypertension. Controlled. 7. Nephrolithiasis. 8. Hypernatremia from lack of oral water intake. resolved, no sodium level is low Plan: Can DC IV fluids Continue to encourage increased oral intake Repeat labs
[2024-11-21 14:20] LABS: Albumin 3.13 g/dL (3.80-4.90); Gamma Globulin 0.53 g/dL (0.70-1.50)
[2024-11-21 17:25] LABS: Glucose,Whole Blood 141 mg/dL (70-110)
[2024-11-21 20:21] LABS: Glucose,Whole Blood 162 mg/dL (70-110)
--- NOTE | 2024-11-21 20:27 | US ---
EXAMINATION TYPE: US carotid duplex BILAT DATE OF EXAM: 11/21/2024 COMPARISON: NONE CLINICAL INDICATION: Male, 64 years old with history of Right lip numbness.; patient states right fac e numbness 1 week Additional History: .... TECHNIQUE: Grayscale, color Doppler and spectral Doppler evaluation of the bilateral carotid systems and vertebral arteries. Indirect Doppler criteria was utilized. FINDINGS: EXAM MEASUREMENTS: RIGHT: Peak Systolic Velocity (PSV) cm/sec ----- Right CCA: 107 ----- Right ICA: 101 ----- Right ECA: 75.4 ICA/CCA ratio: 0.9 RIGHT: End Diastole cm/sec ----- Right CCA: 14.9 ----- Right ICA: 20.8 ----- Right ECA: 0.0 LEFT: Peak Systolic Velocity (PSV) cm/sec ----- Left CCA: 139 ----- Left ICA: 148 ----- Left ECA: 91.0 ICA/CCA ratio: 1.1 LEFT: End Diastole cm/sec ----- Left CCA: 14.8 ----- Left ICA: 36.1 ----- Left ECA: 0.0 VERTEBRALS (direction of flow): Right Vertebral: Antegrade Left Vertebral: Antegrade Rhythm: Normal [employer] WE[employer] MANAGER NOTES: slightly limited due to vessels diving at bifurcation mildly elevated velocities seen within the left distal CCA and left prox ICA. Color Doppler imaging shows patency with blood flow throughout the carotid artery. Spectral waveforms are within normal limits. IMPRESSION: Right: No hemodynamically significant stenosis. Left: No hemodynamically significant stenosis. Criteria for Assigning % of Stenosis / Diameter reduction (Estimation based on the indirect measurements of the internal carotid artery velocities (ICA PSV). 1. Normal (no stenosis)=ICA PSV < 180 cm/s: ratio < 2.0: ICA EDV<40 cm/s. 2. Less than 50% stenosis=ICA PSV < 180 cm/s: ratio < 2.0: ICA EDV<40 cm/s. 3. 50 to 69% stenosis=ICA PSV of 180 to 230 cm/s: ration 2.0 ? 4.0: ICA EDV 40-100 cm/s. PSV 125-180 cm/sec and ICA/CCA PSV Ratio ? 2.0 is also consistent with 50-69% stenosis 4. Greater than 70% stenosis to near occlusion= ICA PSV > 230 cm/s: ratio > 4.0: ICA EDV > 100 cm/s. 5. Near occlusion= ICA PSV velocities may be low or undetectable: variable ratio and ICA EDV. 6. Total occlusion=unable to detect flow. [facility], , 11/21/2024 8:25 PM
--- NOTE | 2024-11-21 23:15 | P.CONS ---
History of Present Illness - Reason for Consult Consult date: 11/21/24 Urinary tract infection Requesting physician: Melissa Cobb - Chief Complaint Weakness x days - History of Present Illness Patient is a 64-year-old -Turkish male with a past medical history significant for diabetes mellitus hypertension hyperlipidemia sleep apnea CVA TIA presenting to the hospital about 5 days ago for evaluation of generalized weakness decreased energy patient also complaining of dysuria and has not hematuria suprapubic and flank pain nausea but no vomiting denies high-grade fever on presentation to the hospital patient was afebrile and no fever have been recorded subsequently patient was tachycardic at 1 point but not hypotensive or hypoxic did have white count of 8.6 BUN and creatinine has been elevated with a creatinine of 3.78 urine was positive on admission with large leukocyte esterase more than 1-2 WBC culture finalized with Enterobacter and Enterococcus faecalis infectious disease was consulted today for management of antibiotic therapy as the patient was not on an antibiotic as of this morning patient care discussed with the [employer] TECHNICIAN recommended addition of Zosyn pending evaluation patient remained to be afebrile still complaining of weakness and did have urinary burning describing it to be stinging some significant discomfort and flank pain nausea but no vomiting or any diarrhea Review of Systems Positive point and negatives has been mentioned in the HPI, complete review of systems was performed and all other systems are negative Past Medical History Past Medical History: CVA/TIA, Diabetes Mellitus, Hyperlipidemia, Hypertension, Sleep Apnea/CPAP/BIPAP Additional Past Medical History / Comment(s): uses CPAP, CEREBRAL BLEED 08/19/22 and 2023 RIGHT SIDE WEAKNESS History of Any Multi-Drug Resistant Organisms: None Reported Past Surgical History: Bowel Resection, Heart Catheterization, Hernia Repair Additional Past Surgical History / Comment(s): Colostomy, colonoscopy Past Anesthesia/Blood Transfusion Reactions: No Reported Reaction Past Psychological History: Depression Smoking Status: Former smoker Past Alcohol Use History: Occasional Additional Past Alcohol Use History / Comment(s): STARTED SMOKING AT AGE 21 QUIT SMOKING AT AGE 37 SMOKED LESS THAN 1 PACK A MONTH Past Drug Use History: None Reported - Past Family History Sister(s) Family Medical History: Cancer Additional Family Medical History / Comment(s): 1 SISTER FROM ESOPHAGEL CANCER. 1 SISTER HAD BREAST CANCER Medications and Allergies Home Medications Medication Instructions Recorded Confirmed Type Atorvastatin [Lipitor] 80 mg PO DAILY 12/20/21 11/15/24 History Gabapentin [Neurontin] 100 mg PO TID 12/20/21 11/15/24 History Pantoprazole [Protonix] 40 mg PO DAILY 12/20/21 11/15/24 History metFORMIN HCL 500 mg PO BID 12/20/21 11/15/24 History Baclofen 5 mg PO BID 10/25/23 11/15/24 History Dicyclomine [Bentyl] 10 mg PO TID 10/25/23 11/15/24 History Loperamide [Imodium] 2 mg PO QID 10/25/23 11/15/24 History Apixaban [Eliquis] 5 mg PO BID 11/27/23 11/15/24 History Ondansetron [Zofran] 8 mg PO TID 11/27/23 11/15/24 History carvediloL [Coreg] 6.25 mg PO BID 11/27/23 11/15/24 History droNABinol [Marinol] 2.5 mg PO BID 11/27/23 11/15/24 History lisinopriL [Zestril] 5 mg PO DAILY PRN 11/27/23 11/15/24 History Cholecalciferol (Vitamin D3) 1,250 mcg PO WEEKLY 10/29/24 11/15/24 History [Vitamin D3 (1250 Mcg = 50,000 Iu)] Insulin Lispro [humaLOG Kwikpen] See Protocol SQ AC-TID 10/29/24 11/15/24 History Megestrol [Megace] 400 mg PO AC-BID 10/29/24 11/15/24 History Sertraline [Zoloft] 100 mg PO TID 10/29/24 11/15/24 History Sucralfate [Carafate] 1 gm PO AC-BID 10/29/24 11/15/24 History Acetaminophen Tab [Tylenol] 650 mg PO Q6HR PRN tab 11/04/24 11/15/24 Rx HYDROcodone/APAP 10-325MG [[place] 1 tab PO Q6HR PRN 11/15/24 11/15/24 History 10-325] Tamsulosin [Flomax] 0.4 mg PO BID 11/15/24 11/15/24 History Allergies Allergy/AdvReac Type Severity Reaction Status Date / Time No Known Allergies Allergy Verified 11/15/24 18:34 Physical Exam Vitals: Vital Signs Temp Pulse Resp BP Pulse Ox 11/21/24 08:00 98.4 F 75 18 135/71 99 11/21/24 01:36 98.5 F 77 16 125/53 97 11/20/24 20:00 99.1 F 75 16 114/70 97 11/20/24 12:28 98.8 F 66 17 147/87 100 Intake and Output 11/20/24 11/21/24 11/21/24 22:59 06:59 14:59 Intake Total 540 Output Total 700 900 Balance -700 -360 Intake: Oral 540 Output: Urine 700 300 Stool 600 Other: Voiding Method Diaper Diaper External Catheter External Catheter GENERAL DESCRIPTION: Middle-age male up in the chair, no distress. No tachypnea or accessory muscle of respiration use. HEENT: Shows Pallor , no scleral icterus. Oral mucous membrane is dry. No pharyngeal erythema or thrush NECK: Trachea central, no thyromegaly. LUNGS: Unlabored breathing. Clear to auscultation anteriorly. No wheeze or crackle. HEART: S1, S2, regular rate and rhythm. No loud murmur ABDOMEN: Soft, no tenderness , guarding or rigidity, no organomegaly EXTREMITIES: No edema of feet. SKIN: No rash, no masses palpable. NEUROLOGICAL: The patient is awake, alert, oriented x3, mood and affect normal. Results CBC & Chem 7: 11/21/24 11:00 11/21/24 11:00 Labs: Abnormal Lab Results - Last 24 Hours (Table) 11/20/24 11/20/24 11/20/24 Range/Units 12:00 17:33 20:16 POC Glucose (mg/dL) 161 H 212 H 187 H (70-110) mg/dL 11/21/24 Range/Units 07:05 POC Glucose (mg/dL) 131 H (70-110) mg/dL Assessment and Plan (1) UTI (urinary tract infection) due to Enterococcus Current Visit: Yes Status: Acute Code(s): N39.0 - URINARY TRACT INFECTION, SITE NOT SPECIFIED; B95.2 - ENTEROCOCCUS THE CAUSE OF DISEASES CLASSIFIED ELSEWHERE SNOMED Code(s): 292738782134965 Plan: 1patient was hospitalized weakness patient did have a urinary burning concentrated urine significantly positive UA concerning for symptomatic UTI with urine now showing Enterobacter as well as Enterococcus faecalis 2-patient with renal insufficiency and a high risk of nephrotoxicity from certain antibiotics 3-patient has been started on Zosyn to cover for both pathogen and will see clinical response We will follow on clinical condition and cultures to further adjust medication if needed Thank you for this consultation we will follow the patient along with you Dictation was produced using [employer] software. please excuse any grammatical, word or spelling errors. Time with Patient: Greater than 30
[2024-11-22 07:01] LABS: Glucose,Whole Blood 130 mg/dL (70-110)
[2024-11-22 08:20] LABS: Basophils # (A) 0.02 X 10*3/uL (0.00-0.10); Basophils % (A) 0.3 %; Eosinophils # (A) 0.41 X 10*3/uL (0.04-0.35); Eosinophils % (A) 6.4 %; HGB 7.5 g/dL (13.0-17.0); Lymphocytes # (A) 1.94 X 10*3/uL (0.90-5.00); Lymphocytes % (A) 30.5 %; MCH 28.8 pg (27.0-32.0); MCHC 31.3 g/dL (32.0-37.0); MCV 92.3 FL (80.0-97.0); Monocytes # (A) 0.41 X 10*3/uL (0.20-1.00); Monocytes % (A) 6.4 %; NRBC Per 100 WBC 0 X 10*3/uL (0.00-0.01); Neutrophils # (A) 3.58 X 10*3/uL (1.80-7.70); Neutrophils % (A) 56.2 %; Platelet Count 254 X 10*3/uL (140-440); RDW 14.4 % (11.5-14.5); WBC 6.37 X 10*3/uL (4.50-10.00)
[2024-11-22] MEDS: ERGOCALCIFEROL 1,250 MCG (50,000 IU) CAPSULE PO SCH (08:27)
[2024-11-22 08:39] LABS: BUN/Creat Ratio 8.65 Ratio (12.00-20.00); Blood Urea Nitrogen 34.6 mg/dL (9.0-27.0); Carbon Dioxide 21.2 mmol/L (21.6-31.8); Chloride 109 mmol/L (96-109); Glucose 112 mg/dL (70-110); Potassium 4.8 mmol/L (3.5-5.5); Sodium 141 mmol/L (135-145)
[2024-11-22 08:40] LABS: Calcium 9.3 mg/dL (8.7-10.3)
--- NOTE | 2024-11-22 09:07 | P.PN ---
Subjective Progress Note Date: 11/22/24 Principal diagnosis: Renal calculi The patient is a 64-year-old white male who underwent right ureteral stent insertion on November 03 to relieve obstruction caused by a right UPJ calculus. The calculi were radiolucent, and he was found to have multiple small bladder calculi which were removed and sent for chemical analysis. As suspected, the calculi were of uric acid composition. It is my intent to treat him with urinary alkalinization to dissolve the calculi. He is now admitted with renal failure. Imaging shows resolution of his hydronephrosis. He does report mild right-sided discomfort and dysuria. Urine culture shows a UTI (Enterococcus and Enterobacter), for which he is receiving Zosyn. Objective - Vital Signs Vital signs: Vital Signs Temp 98.2 F 11/22/24 01:38 Pulse 64 11/22/24 01:38 Resp 16 11/22/24 01:38 BP 118/58 11/22/24 01:38 Pulse Ox 95 11/22/24 01:38 FiO2 Intake & Output 11/21/24 11/22/24 11/22/24 18:59 06:59 18:59 Intake Total 540 Output Total 700 Balance -160 Intake: Oral 540 Output: Urine 500 Stool 200 Other: Voiding Method Diaper Diaper External Catheter External Catheter - Constitutional General appearance: Present: average body habitus, cooperative, no acute distress - Psychiatric Psychiatric: Present: A&O x's 3 - Labs CBC & Chem 7: 11/22/24 05:03 11/22/24 05:03 Labs: Abnormal Lab Results - Last 24 Hours (Table) 11/17/24 11/21/24 11/21/24 Range/Units 11:32 07:05 11:00 RBC (4.30-5.90) m/uL Hgb (13.0-17.5) gm/dL Hct (39.0-53.0) % Carbon Dioxide 21 L (22-30) mmol/L BUN 38 H (9-20) mg/dL Creatinine 3.78 H (0.66-1.25) mg/dL Glucose 173 H (74-99) mg/dL POC Glucose (mg/dL) 131 H (70-110) mg/dL Albumin (PEP) 3.13 L (3.80-4.90) g/dL Gamma Globulins 0.53 L (0.70-1.50) g/dL 11/21/24 11/21/24 11/21/24 Range/Units 11:00 12:02 17:22 RBC 2.89 L (4.30-5.90) m/uL Hgb 8.2 L (13.0-17.5) gm/dL Hct 26.0 L (39.0-53.0) % Carbon Dioxide (22-30) mmol/L BUN (9-20) mg/dL Creatinine (0.66-1.25) mg/dL Glucose (74-99) mg/dL POC Glucose (mg/dL) 182 H 141 H (70-110) mg/dL Albumin (PEP) (3.80-4.90) g/dL Gamma Globulins (0.70-1.50) g/dL 11/21/24 11/22/24 Range/Units 20:18 07:00 RBC (4.30-5.90) m/uL Hgb (13.0-17.5) gm/dL Hct (39.0-53.0) % Carbon Dioxide (22-30) mmol/L BUN (9-20) mg/dL Creatinine (0.66-1.25) mg/dL Glucose (74-99) mg/dL POC Glucose (mg/dL) 162 H 130 H (70-110) mg/dL Albumin (PEP) (3.80-4.90) g/dL Gamma Globulins (0.70-1.50) g/dL Assessment and Plan (1) Urinary tract infection Current Visit: No Status: Acute Code(s): N39.0 - URINARY TRACT INFECTION, SITE NOT SPECIFIED SNOMED Code(s): 37455013 (2) Renal calculi Current Visit: No Status: Acute Code(s): N20.0 - CALCULUS OF KIDNEY SNOMED Code(s): 29129828 Plan: Continue antibiotics. The patient would benefit from urinary alkalinization to achieve a urine pH of 7, though this may need to be deferred until his renal function improves.
--- NOTE | 2024-11-22 10:21 | P.PN ---
Subjective Progress Note Date: 11/21/[address] Dr[address] Javi Hansen. Please refer to his note for details. Patient is a 64-year-old male with acute renal failure, who has developed lip numbness, which Dr. Hansen felt was likely from electrolyte/metabolic derangement. Patient was seen for a follow-up. Patient is laying comfortably in the bed. Patient says that his right lower half of lip is still numb. Patient admits to having some slurred speech off and on, and right arm because but is related to his previous stroke. No new concerns. Patient is on Eliquis. Some of the workup during this hospital visit consisted of: His creatinine is as high as 8.37 Hemoglobin A1c is 7.0 Calcium is 9.9, Phosphorus is 6.8 Magnesium is 1.8 Vitamin B12 is [address] head: It is reported as no acute intracranial hemorrhage or midline shift. No significant change from most recent prior CT. Objective - Vital Signs Vital signs: Vital Signs Temp 98.1 F 11/21/24 18:28 Pulse 68 11/21/24 18:28 Resp 16 11/21/24 18:28 BP 114/66 11/21/24 18:28 Pulse Ox 98 11/21/24 12:05 FiO2 Intake & Output 11/21/24 11/21/24 11/22/24 06:59 18:59 06:59 Intake Total 540 Output Total 1600 Balance -1060 Intake: Oral 540 Output: Urine 1000 Stool 600 Other: Voiding Method Diaper Diaper External Catheter External Catheter - Exam Patient's mental status is normal. Speech is mildly dysarthric. Patient has right facial asymmetry. Visual wu are full. Right arm is completely plegic. Left upper extremity is normal. Sensory to touch is equal with no neglect. - Labs CBC & Chem 7: 11/22/24 05:03 11/22/24 05:03 Labs: Abnormal Lab Results - Last 24 Hours (Table) 11/17/24 11/20/24 11/21/24 Range/Units 11:32 20:16 07:05 RBC (4.30-5.90) m/uL Hgb (13.0-17.5) gm/dL Hct (39.0-53.0) % Carbon Dioxide (22-30) mmol/L BUN (9-20) mg/dL Creatinine (0.66-1.25) mg/dL Glucose (74-99) mg/dL POC Glucose (mg/dL) 187 H 131 H (70-110) mg/dL Albumin (PEP) 3.13 L (3.80-4.90) g/dL Gamma Globulins 0.53 L (0.70-1.50) g/dL 11/21/24 11/21/24 11/21/24 Range/Units 11:00 11:00 12:02 RBC 2.89 L (4.30-5.90) m/uL Hgb 8.2 L (13.0-17.5) gm/dL Hct 26.0 L (39.0-53.0) % Carbon Dioxide 21 L (22-30) mmol/L BUN 38 H (9-20) mg/dL Creatinine 3.78 H (0.66-1.25) mg/dL Glucose 173 H (74-99) mg/dL POC Glucose (mg/dL) 182 H (70-110) mg/dL Albumin (PEP) (3.80-4.90) g/dL Gamma Globulins (0.70-1.50) g/dL 11/21/24 Range/Units 17:22 RBC (4.30-5.90) m/uL Hgb (13.0-17.5) gm/dL Hct (39.0-53.0) % Carbon Dioxide (22-30) mmol/L BUN (9-20) mg/dL Creatinine (0.66-1.25) mg/dL Glucose (74-99) mg/dL POC Glucose (mg/dL) 141 H (70-110) mg/dL Albumin (PEP) (3.80-4.90) g/dL Gamma Globulins (0.70-1.50) g/dL Assessment and Plan Assessment: This is a 64-year-old gentleman who presents emergency department because of kidney stones. He is having worsening of the kidney function with elevated phosphorus. He also complained of lower lip numbness today. Lower lip numbness. Dr. Javi Hansen felt it was likely due to electrolyte imba reuben with worsening of the kidney function Altered mental status due to metabolic encephalopathy--improved Acute kidney injury--slight trending down Low normal folate, 6.70 Right sided hydronephrosis and patient had a ureteral stent on November 03, 2024 History of 2 strokes with residual right hemiparesis, dysarthria right facial droop. Diabetes mellitus Benign hypertension Tobacco use Plan: Folic acid is low 6.7. Patient started on folic acid 1 mg daily. Nephrology is on board Carotid Doppler revealed no hemodynamically significant stenosis in either ICA. Antegrade flow in both vertebral arteries. Will defer the rest of the medical management department other specialist. Hemoglobin A1c 7.0. Recommend optimize control of diabetes. B12 630 Continue Eliquis 5 mg twice a day. Continue Lipitor 80 mg daily. Neurologically, no other workup indicated. Neurology will sign off. Please reconsult if any other concerns.
--- NOTE | 2024-11-22 11:07 | P.PN ---
Subjective Progress Note Date: 11/22/24 H&P Date: 11/16/24 Chief Complaint: Acute renal This is a 64-year-old gentleman with past medical history significant for recent inpatient admission with right hydronephrosis secondary to right ureteral calculus, right renal calculi- underwent cystoscopy with removal of bladder calculi, right retrograde pyelogram and right ureteral stent insertion on 11/03 and discharged home on 11/04/2024. Past medical history also significant for CVA/TIA ,colectomy, diabetes mellitus, A-fib, hypertension, hyperlipidemia, sleep apnea uses CPAP, former nicotine dependence and multiple other medical issues. at bedside,reports they had gone to [place] post discharge and patient appeared a" little off "there. Reports decreased appetite ,complained of intermittent right flank pain. Denies hematuria. Denies vomiting. Denies diarrhea. Over the last 3 days patient's confusion, muscle strength /weakness worsened and patient was brought into the ER.on admission creatinine 8.37, BUN 70, bicarb 10 .lactic acid 2.4, phosphorus 6.8 .hemoglobin 9.5, platelets 323, INR 1 afebrile, normal WBC .urine reported greater than 182 RBCs and WBCs.repeat labs and urine culture pending. Renal ultrasound reported mild right hydronephrosis, bilateral nonobstructing renal calculi, right renal cyst, multiple probable bladder stones, cholelithiasis. Minimal post void residuals reported no greater than 75 mLs. Urology and nephrology consults in place.IV fluid hydration/bicarb drip initiated. 11/17/2024 this morning,patient reports he still does not feel quite right and reports his entire lower lip and left hand are numb, timeframe/onset unclear- vague historian. Moving left hand and digits. consumed 50% of dinner last night, 25% of breakfast this morning. maintained on bicarb drip ,renal function slowly improving, bicarb increased to 19.7, BUN 64.2, creatinine 7. Bladder scan reporting negative urinary retention .blood sugars controlled, hemoglobin A1c 7. Iron studies noted.Aranesp added to med regimine per nephrology. Renal CT reporting placement of right ureteral stent with resolution of right hydronephrosis, resolution of 2 large right renal calcifications 1 in the UPJ and the other in the lower pole of the right kidney, persistent bilateral nonobstructing renal calcifications. 11/18/2024 Evaluated by neurology yesterday regarding numbness of left hand and lower lip. Patient denied left hand numbness to neurologist at the time of his examination. This morning reports no left hand numbness, lower lip numbness "better".brain CT performed reporting no acute intracranial hemorrhage or midline shift, no significant change from most recent prior CT. vitamin B12 630, folate 6.7. Continue 100% of dinner, breakfast recently arrived at bedside. Maintained on bicarb drip.24-hour I&O inaccurate. labs pending. Afebrile, Tmax 99, urine culture in progress. 11/19/2024 Dillan is admitted for acute renal failure and metabolic encephalopathy . He underwent a right ureteral stent after being admitted several weeks ago for hematuria and nephrolithiasis. He is kidney function continue to improve. His mentation continues to improve. He has no significant plaints today other than right hip pain. Vital signs show he is afebrile heart rate 88 respirate 17 blood pressure stable pulse oximetry 97% on room air. GFR today is now 12. November 20, 2024: Patient continues to be stable and improving. He remains on D5 water at 130 cc/h. He continues oral intake but it is minimal. He remains on her and asked for his anemia Eliquis for A-fib anticoagulation and his other home medications. He denies any chest pains pressure shortness of breath nausea or vomiting today. Vital signs remained stable. He remains afebrile. Labs for today are pending. Most recently GFR from yesterday is 15. Creatinine 4.64. Nephrology consultation reviewed. Regarding his right hip pain, right hip x-ray failed to show any abnormalities. Today's urine is much clear and strawlike. 11/21/2024 urine culture finalized with E. coli, Enterobacter cloque, enteric coccus faecalis. Zosyn initiated, ID consulted. Oral intake improving,renal function improving -yesterday GFR 18, creatinine decreased to 3.95. nephrology reporting no need for renal biopsy or urgent hemodialysis at this time. Labs pending. Spontaneously voiding, 11/22/2024 urology reports chemical analysis of renal calculi reported uric acid composition, recommending treatment with urinary alkalinization to dissolve calculi. Maintained on Zosyn for UTI, Enterococcus and Enterobacter. Afebrile, WBC within normal limits. Hemoglobin decreased to 7.5, platelets 254, no active bleeding noted-denies bleeding. sodium 141, potassium 4.8, bicarb 21.2, BUN 34.6, creatinine increased to 4. blood sugars controlled. Objective - Vital Signs Vital signs: Vital Signs Temp 98.9 F 11/22/24 07:02 Pulse 74 11/22/24 07:02 Resp 16 11/22/24 07:02 BP 112/67 11/22/24 07:02 Pulse Ox 97 11/22/24 07:02 FiO2 Intake & Output 11/21/24 11/22/24 11/22/24 18:59 06:59 18:59 Intake Total 540 Output Total 700 100 Balance -160 -100 Intake: Oral 540 Output: Urine 500 Stool 200 100 Other: Voiding Method Diaper Diaper Diaper External Catheter External Catheter External Catheter - Exam General:alert and oriented x 3, sitting up in chair, no acute distress. Neck: neck is supple, no JVD. Cardiovascular: S1S2 is normal,regular rate and rhythm. No murmur, rub or gallop appreciated. Respiratory: Unlabored, equal air entry ,lungs are clear to auscultation. Gastrointestinal: Soft, non-distended, nontender. no rigidity, no guarding, functioning ostomy present, +Bowel sounds. EXTREM: no pedal edema. There is no calf tenderness or swelling. Neurological: CN II-XII intact, Strength and sensation grossly intact: Right- sided residual weakness from prior CVA. Skin: Skin is warm and dry, no rashes noted. Microbiology 11/15/24 20:40 Urine,Voided Urine Culture - Final Enterobacter cloacae Enterococcus faecalis - Labs CBC & Chem 7: 11/22/24 05:03 11/22/24 05:03 Labs: Abnormal Lab Results - Last 24 Hours (Table) 11/17/24 11/21/24 11/21/24 Range/Units 11:32 11:00 11:00 RBC 2.89 L (4.30-5.90) m/uL Hgb 8.2 L (13.0-17.5) gm/dL Hct 26.0 L (39.0-53.0) % MCHC (32.0-37.0) g/dL Eosinophils # (0.04-0.35) X 10*3/uL Carbon Dioxide 21 L (22-30) mmol/L BUN 38 H (9-20) mg/dL Creatinine 3.78 H (0.66-1.25) mg/dL Est GFR (CKD-EPI) (>=60) BUN/Creatinine Ratio (12.00-20.00) Ratio Glucose 173 H (74-99) mg/dL POC Glucose (mg/dL) (70-110) mg/dL Albumin (PEP) 3.13 L (3.80-4.90) g/dL Gamma Globulins 0.53 L (0.70-1.50) g/dL 11/21/24 11/21/24 11/21/24 Range/Units 12:02 17:22 20:18 RBC (4.30-5.90) m/uL Hgb (13.0-17.5) gm/dL Hct (39.0-53.0) % MCHC (32.0-37.0) g/dL Eosinophils # (0.04-0.35) X 10*3/uL Carbon Dioxide (22-30) mmol/L BUN (9-20) mg/dL Creatinine (0.66-1.25) mg/dL Est GFR (CKD-EPI) (>=60) BUN/Creatinine Ratio (12.00-20.00) Ratio Glucose (74-99) mg/dL POC Glucose (mg/dL) 182 H 141 H 162 H (70-110) mg/dL Albumin (PEP) (3.80-4.90) g/dL Gamma Globulins (0.70-1.50) g/dL 11/22/24 11/22/24 11/22/24 Range/Units 05:03 05:03 07:00 RBC 2.60 L (4.30-5.90) m/uL Hgb 7.5 L (13.0-17.5) gm/dL Hct 24.0 L (39.0-53.0) % MCHC 31.3 L (32.0-37.0) g/dL Eosinophils # 0.41 H (0.04-0.35) X 10*3/uL Carbon Dioxide 21.2 L (22-30) mmol/L BUN 34.6 H (9-20) mg/dL Creatinine 4.0 H (0.66-1.25) mg/dL Est GFR (CKD-EPI) 16 L (>=60) BUN/Creatinine Ratio 8.65 L (12.00-20.00) Ratio Glucose 112 H (74-99) mg/dL POC Glucose (mg/dL) 130 H (70-110) mg/dL Albumin (PEP) (3.80-4.90) g/dL Gamma Globulins (0.70-1.50) g/dL Assessment and Plan Assessment: Acute renal failure, in a patient with poor appetite, etiology unclear. Recent admission with right hydronephrosis secondary to right ureteral calculus, right renal calculi, underwent cystoscopy with removal of bladder calculi, right retrograde pyelogram and right ureteral stent insertion on 11/03/2024 and discharged home on 11/04/2024. Ultrasound reporting mild right sided hydronephrosis. Renal CT reporting placement of right ureteral stent with resolution of right hydronephrosis, resolution of 2 large right renal calcifications 1 in the UPJ and the other in the lower pole of the right kidney, persistent bilateral nonobstructing renal calcifications. Acute UTI with Enterobacter clocae, Enterococcus faecalis Left hand and lower lip numbness, probably related to the above along with electrolyte imbalance as per neurology. Left hand numbness resolved. Left lip numbness improving. Lactic acidosis, resolved Metabolic acidosis, status post bicarb drip, resolved Anemia, multifactorial , secondary to all the above ,aranesp added to med regimine. Sleep apnea uses CPAP Hypertension Hyperlipidemia Diabetes mellitus History of CVA, TIA Prior nicotine dependence Plan: Continue on current medication regimen ,monitoring and symptomatic treatment. Bladder scan. renal/consistent carb diet. maintain antibiotics for UTI. Continue avoiding nephrotoxins. PT/OT .continue close monitoring of renal function, with repeat labs ordered for a.m. PT/OT. The impression and plan of care has been dictated as directed. : I performed a history and examination of this patient, discussed the same with the dictator. I agree with the dictator's note ,documented as a scribe. Any additional findings or plans will be noted.
[2024-11-22 12:00] LABS: Glucose,Whole Blood 188 mg/dL (70-110)
--- NOTE | 2024-11-22 13:17 | P.PN ---
Subjective Patient is seen for follow-up for acute kidney injury. Renal function has been improving however serum creatinine increased to 4 from 3.7 yesterday. Hemoglobin was down at 7.4. No active bleeding noted. Patient has an external catheter No significant complaints. Objective - Vital Signs Vital signs: Vital Signs Temp 98.7 F 11/22/24 12:30 Pulse 70 11/22/24 12:30 Resp 16 11/22/24 12:30 BP 121/73 11/22/24 12:30 Pulse Ox 100 11/22/24 12:30 FiO2 Intake & Output 11/21/24 11/22/24 11/22/24 18:59 06:59 18:59 Intake Total 540 Output Total 700 100 Balance -160 -100 Intake: Oral 540 Output: Urine 500 Stool 200 100 Other: Voiding Method Diaper Diaper Diaper External Catheter External Catheter External Catheter - Exam Patient is awake, comfortable, no acute distress Alert oriented x 3 Examination of the heart S1 and S2 Examination of the lungs bilateral breath sounds are heard Abdomen is soft nontender Examination of lower extremities shows no significant edema 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 - Labs CBC & Chem 7: 11/22/24 05:03 11/22/24 05:03 Labs: Abnormal Lab Results - Last 24 Hours (Table) 11/17/24 11/21/24 11/21/24 Range/Units 11:32 17:22 20:18 RBC (4.40-5.60) X 10*6/uL Hgb (13.0-17.0) g/dL Hct (39.6-50.0) % MCHC (32.0-37.0) g/dL Eosinophils # (0.04-0.35) X 10*3/uL Carbon Dioxide (21.6-31.8) mmol/L BUN (9.0-27.0) mg/dL Creatinine (0.6-1.5) mg/dL Est GFR (CKD-EPI) (>=60) BUN/Creatinine Ratio (12.00-20.00) Ratio Glucose (70-110) mg/dL POC Glucose (mg/dL) 141 H 162 H (70-110) mg/dL Albumin (PEP) 3.13 L (3.80-4.90) g/dL Gamma Globulins 0.53 L (0.70-1.50) g/dL 11/22/24 11/22/24 11/22/24 Range/Units 05:03 05:03 07:00 RBC 2.60 L (4.40-5.60) X 10*6/uL Hgb 7.5 L (13.0-17.0) g/dL Hct 24.0 L (39.6-50.0) % MCHC 31.3 L (32.0-37.0) g/dL Eosinophils # 0.41 H (0.04-0.35) X 10*3/uL Carbon Dioxide 21.2 L (21.6-31.8) mmol/L BUN 34.6 H (9.0-27.0) mg/dL Creatinine 4.0 H (0.6-1.5) mg/dL Est GFR (CKD-EPI) 16 L (>=60) BUN/Creatinine Ratio 8.65 L (12.00-20.00) Ratio Glucose 112 H (70-110) mg/dL POC Glucose (mg/dL) 130 H (70-110) mg/dL Albumin (PEP) (3.80-4.90) g/dL Gamma Globulins (0.70-1.50) g/dL 11/22/24 Range/Units 11:59 RBC (4.40-5.60) X 10*6/uL Hgb (13.0-17.0) g/dL Hct (39.6-50.0) % MCHC (32.0-37.0) g/dL Eosinophils # (0.04-0.35) X 10*3/uL Carbon Dioxide (21.6-31.8) mmol/L BUN (9.0-27.0) mg/dL Creatinine (0.6-1.5) mg/dL Est GFR (CKD-EPI) (>=60) BUN/Creatinine Ratio (12.00-20.00) Ratio Glucose (70-110) mg/dL POC Glucose (mg/dL) 188 H (70-110) mg/dL Albumin (PEP) (3.80-4.90) g/dL Gamma Globulins (0.70-1.50) g/dL Assessment and Plan Assessment: 1. Acute kidney injury secondary to ATN versus obstructive uropathy. Creatinine 8.37 on admission and is 6.2 ->4.6-> 3.7, increased to 4.0 today, rule out urine retention rafael Spencer can you speak to the nurse for 15 mild hydronephrosis noted on the right side on imaging. Not noted on renal CT. Creatinine earlier this month was near 2. 2. Right-sided hydronephrosis with cystoscopy and right ureteral stent placement November 03, 2024. 3. Metabolic acidosis secondary to acute kidney injury and IV fluids. Improved with bicarb drip. 4. Anemia. Iron replete. Component of chronic illness. On Aranesp. 5. Diabetes mellitus. 6. Benign hypertension. Controlled. 7. Nephrolithiasis. 8. Hypernatremia from lack of oral water intake. resolved Plan: Resume IV fluids Check bladder scan rule out urine retention Add Aranesp Continue to encourage increased oral intake Repeat labs
[2024-11-22] MEDS: LACTATED RINGERS 1,000 ML IV SCH (14:45)
--- NOTE | 2024-11-22 15:26 | P.PN ---
Subjective Progress Note Date: 11/22/24 Principal diagnosis: Reason for follow-up is UTI Patient is a 64-year-old -[place]an male with a past medical history significant for diabetes mellitus hypertension hyperlipidemia sleep apnea CVA TIA presenting to the hospital for evaluation of generalized weakness decreased energy has been diagnosed with a UTI urine with Enterococcus and Enterobacter prompted this consultation. On today's evaluation that is 11/22/2024, Patient is afebrile this morning patient denies having any chest pain shortness of breath or cough, the patient is currently on room air, patient denies any abdominal pain no diarrhea no nausea no vomiting. Patient white count 6.37, creatinine is 4.0 Objective - Vital Signs Vital signs: Vital Signs Temp 98.9 F 11/22/24 07:02 Pulse 74 11/22/24 07:02 Resp 16 11/22/24 07:02 BP 112/67 11/22/24 07:02 Pulse Ox 97 11/22/24 07:02 FiO2 Intake & Output 11/21/24 11/22/24 11/22/24 18:59 06:59 18:59 Intake Total 540 Output Total 700 100 Balance -160 -100 Intake: Oral 540 Output: Urine 500 Stool 200 100 Other: Voiding Method Diaper Diaper Diaper External Catheter External Catheter External Catheter - Exam GENERAL DESCRIPTION: Middle-age male lying in bed in no distress RESPIRATORY SYSTEM: Unlabored breathing , decreased breath sounds at bases HEART: S1 S2 regular rate and rhythm , ABDOMEN: Soft , no tenderness EXTREMITIES: No edema feet - Labs CBC & Chem 7: 11/22/24 05:03 11/22/24 05:03 Labs: Abnormal Lab Results - Last 24 Hours (Table) 11/17/24 11/21/24 11/21/24 Range/Units 11:32 11:00 11:00 RBC 2.89 L (4.30-5.90) m/uL Hgb 8.2 L (13.0-17.5) gm/dL Hct 26.0 L (39.0-53.0) % MCHC (32.0-37.0) g/dL Eosinophils # (0.04-0.35) X 10*3/uL Carbon Dioxide 21 L (22-30) mmol/L BUN 38 H (9-20) mg/dL Creatinine 3.78 H (0.66-1.25) mg/dL Est GFR (CKD-EPI) (>=60) BUN/Creatinine Ratio (12.00-20.00) Ratio Glucose 173 H (74-99) mg/dL POC Glucose (mg/dL) (70-110) mg/dL Albumin (PEP) 3.13 L (3.80-4.90) g/dL Gamma Globulins 0.53 L (0.70-1.50) g/dL 11/21/24 11/21/24 11/21/24 Range/Units 12:02 17:22 20:18 RBC (4.30-5.90) m/uL Hgb (13.0-17.5) gm/dL Hct (39.0-53.0) % MCHC (32.0-37.0) g/dL Eosinophils # (0.04-0.35) X 10*3/uL Carbon Dioxide (22-30) mmol/L BUN (9-20) mg/dL Creatinine (0.66-1.25) mg/dL Est GFR (CKD-EPI) (>=60) BUN/Creatinine Ratio (12.00-20.00) Ratio Glucose (74-99) mg/dL POC Glucose (mg/dL) 182 H 141 H 162 H (70-110) mg/dL Albumin (PEP) (3.80-4.90) g/dL Gamma Globulins (0.70-1.50) g/dL 11/22/24 11/22/24 11/22/24 Range/Units 05:03 05:03 07:00 RBC 2.60 L (4.30-5.90) m/uL Hgb 7.5 L (13.0-17.5) gm/dL Hct 24.0 L (39.0-53.0) % MCHC 31.3 L (32.0-37.0) g/dL Eosinophils # 0.41 H (0.04-0.35) X 10*3/uL Carbon Dioxide 21.2 L (22-30) mmol/L BUN 34.6 H (9-20) mg/dL Creatinine 4.0 H (0.66-1.25) mg/dL Est GFR (CKD-EPI) 16 L (>=60) BUN/Creatinine Ratio 8.65 L (12.00-20.00) Ratio Glucose 112 H (74-99) mg/dL POC Glucose (mg/dL) 130 H (70-110) mg/dL Albumin (PEP) (3.80-4.90) g/dL Gamma Globulins (0.70-1.50) g/dL Assessment and Plan (1) UTI (urinary tract infection) due to Enterococcus Current Visit: Yes Status: Acute Code(s): N39.0 - URINARY TRACT INFECTION, SITE NOT SPECIFIED; B95.2 - ENTEROCOCCUS THE CAUSE OF DISEASES CLASSIFIED ELSEWHERE SNOMED Code(s): 165358404723909 Plan: 1patient was hospitalized weakness patient did have a urinary burning concentrated urine significantly positive UA concerning for symptomatic UTI with urine now showing Enterobacter as well as Enterococcus faecalis 2-patient currently being treated Zosyn to cover for both pathogen and monitor clinical course closely hopefully finishing therapy with oral antibiotics Dictation was produced using [employer] dictation software. please excuse any grammatical, word or spelling errors. Time with Patient: Less than 30
[2024-11-22 17:05] LABS: Glucose,Whole Blood 149 mg/dL (70-110)
[2024-11-22 20:52] LABS: Glucose,Whole Blood 144 mg/dL (70-110)
[2024-11-23 05:17] LABS: African American GFR (CKD) 20 (>60 ml/min/1.73 sqM); Anion Gap 9 mmol/L; Blood Urea Nitrogen 36 mg/dL (9-20); Calcium 9.7 mg/dL (8.4-10.2); Carbon Dioxide 20 mmol/L (22-30); Chloride 109 mmol/L (98-107); Glucose 101 mg/dL (74-99); Non-African American GFR(CKD) 17 (>60 ml/min/1.73 sqM); Potassium 4.6 mmol/L (3.5-5.1); Sodium 138 mmol/L (137-145)
[2024-11-23 05:24] LABS: Basophils % (A) 0 %; Eosinophils # (A) 0.4 k/uL (0-0.7); Eosinophils % (A) 7 %; HCT 24.7 % (39.0-53.0); HGB 8.2 gm/dL (13.0-17.5); Hypochromasia Moderate; Lymphocytes # (A) 1.9 k/uL (1.0-4.8); Lymphocytes % (A) 29 %; MCV 90.7 fL (80.0-100.0); Mean Platelet Volume 8.4; Monocytes # (A) 0.4 k/uL (0-1.0); Monocytes % (A) 6 %; Neutrophils # (A) 3.6 k/uL (1.3-7.7); Neutrophils % (A) 56 %; Platelet Count 258 k/uL (150-450); RBC 2.72 m/uL (4.30-5.90); RDW 14.4 % (11.5-15.5); WBC 6.4 k/uL (3.8-10.6)
[2024-11-23 07:01] LABS: Glucose,Whole Blood 115 mg/dL (70-110)
--- NOTE | 2024-11-23 10:40 | P.PN ---
Subjective Progress Note Date: 11/23/24 H&P Date: 11/16/24 Chief Complaint: Acute renal This is a 64-year-old gentleman with past medical history significant for recent inpatient admission with right hydronephrosis secondary to right ureteral calculus, right renal calculi- underwent cystoscopy with removal of bladder calculi, right retrograde pyelogram and right ureteral stent insertion on 11/03 and discharged home on 11/04/2024. Past medical history also significant for CVA/TIA ,colectomy, diabetes mellitus, A-fib, hypertension, hyperlipidemia, sleep apnea uses CPAP, former nicotine dependence and multiple other medical issues. at bedside,reports they had gone to [place] post discharge and patient appeared a" little off "there. Reports decreased appetite ,complained of intermittent right flank pain. Denies hematuria. Denies vomiting. Denies diarrhea. Over the last 3 days patient's confusion, muscle strength /weakness worsened and patient was brought into the ER.on admission creatinine 8.37, BUN 70, bicarb 10 .lactic acid 2.4, phosphorus 6.8 .hemoglobin 9.5, platelets 323, INR 1 afebrile, normal WBC .urine reported greater than 182 RBCs and WBCs.repeat labs and urine culture pending. Renal ultrasound reported mild right hydronephrosis, bilateral nonobstructing renal calculi, right renal cyst, multiple probable bladder stones, cholelithiasis. Minimal post void residuals reported no greater than 75 mLs. Urology and nephrology consults in place.IV fluid hydration/bicarb drip initiated. 11/17/2024 this morning,patient reports he still does not feel quite right and reports his entire lower lip and left hand are numb, timeframe/onset unclear- vague historian. Moving left hand and digits. consumed 50% of dinner last night, 25% of breakfast this morning. maintained on bicarb drip ,renal function slowly improving, bicarb increased to 19.7, BUN 64.2, creatinine 7. Bladder scan reporting negative urinary retention .blood sugars controlled, hemoglobin A1c 7. Iron studies noted.Aranesp added to med regimine per nephrology. Renal CT reporting placement of right ureteral stent with resolution of right hydronephrosis, resolution of 2 large right renal calcifications 1 in the UPJ and the other in the lower pole of the right kidney, persistent bilateral nonobstructing renal calcifications. 11/18/2024 Evaluated by neurology yesterday regarding numbness of left hand and lower lip. Patient denied left hand numbness to neurologist at the time of his examination. This morning reports no left hand numbness, lower lip numbness "better".brain CT performed reporting no acute intracranial hemorrhage or midline shift, no significant change from most recent prior CT. vitamin B12 630, folate 6.7. Continue 100% of dinner, breakfast recently arrived at bedside. Maintained on bicarb drip.24-hour I&O inaccurate. labs pending. Afebrile, Tmax 99, urine culture in progress. 11/19/2024 Dillan is admitted for acute renal failure and metabolic encephalopathy . He underwent a right ureteral stent after being admitted several weeks ago for hematuria and nephrolithiasis. He is kidney function continue to improve. His mentation continues to improve. He has no significant plaints today other than right hip pain. Vital signs show he is afebrile heart rate 88 respirate 17 blood pressure stable pulse oximetry 97% on room air. GFR today is now 12. November 20, 2024: Patient continues to be stable and improving. He remains on D5 water at 130 cc/h. He continues oral intake but it is minimal. He remains on her and asked for his anemia Eliquis for A-fib anticoagulation and his other home medications. He denies any chest pains pressure shortness of breath nausea or vomiting today. Vital signs remained stable. He remains afebrile. Labs for today are pending. Most recently GFR from yesterday is 15. Creatinine 4.64. Nephrology consultation reviewed. Regarding his right hip pain, right hip x-ray failed to show any abnormalities. Today's urine is much clear and strawlike. 11/21/2024 urine culture finalized with E. coli, Enterobacter cloque, enteric coccus faecalis. Zosyn initiated, ID consulted. Oral intake improving,renal function improving -yesterday GFR 18, creatinine decreased to 3.95. nephrology reporting no need for renal biopsy or urgent hemodialysis at this time. Labs pending. Spontaneously voiding, 11/22/2024 urology reports chemical analysis of renal calculi reported uric acid composition, recommending treatment with urinary alkalinization to dissolve calculi. Maintained on Zosyn for UTI, Enterococcus and Enterobacter. Afebrile, WBC within normal limits. Hemoglobin decreased to 7.5, platelets 254, no active bleeding noted-denies bleeding. sodium 141, potassium 4.8, bicarb 21.2, BUN 34.6, creatinine increased to 4. blood sugars controlled. 11/23/24 staff reports bladder scan of 64 mL at approximately 8 PM , this a.m.'s bladder scan pending.Hemoglobin increased to 8.2. Continues on Zosyn, afebrile, normal WBC. Bicarb 20 BUN 36, creatinine decreased to 3.59. Blood sugars controlled. Showered this morning, tolerated exertion well. Objective - Vital Signs Vital signs: Vital Signs Temp 98.3 F 11/23/24 07:40 Pulse 67 11/23/24 07:40 Resp 18 11/23/24 07:40 BP 144/79 11/23/24 07:40 Pulse Ox 97 11/23/24 07:02 FiO2 Intake & Output 11/22/24 11/23/24 11/23/24 18:59 06:59 18:59 Intake Total 1040 540 Output Total 750 750 Balance 290 -210 Intake: Oral 1040 540 Output: Urine 500 400 Stool 250 350 Other: Voiding Method Diaper Diaper Diaper External Catheter External Catheter External Catheter - Exam General:alert and oriented x 3, sitting up in chair, no acute distress. Neck: neck is supple, no JVD. Cardiovascular: S1,S2 normal,regular rate and rhythm. No murmur, rub or gallop appreciated. Respiratory: Unlabored, equal air entry ,lungs are clear to auscultation. Gastrointestinal: Soft, non-distended, nontender. no rigidity, no guarding, functioning ostomy present, +Bowel sounds. EXTREM: no pedal edema. No calf tenderness or swelling. Neurological: CN II-XII intact, Strength and sensation grossly intact: Right- sided residual weakness from prior CVA. Skin: Skin is warm and dry, no rashes noted. - Labs CBC & Chem 7: 11/23/24 04:19 11/23/24 04:19 Labs: Abnormal Lab Results - Last 24 Hours (Table) 11/22/24 11/22/24 11/22/24 Range/Units 11:59 17:04 20:50 RBC (4.30-5.90) m/uL Hgb (13.0-17.5) gm/dL Hct (39.0-53.0) % Chloride (98-107) mmol/L Carbon Dioxide (22-30) mmol/L BUN (9-20) mg/dL Creatinine (0.66-1.25) mg/dL Glucose (74-99) mg/dL POC Glucose (mg/dL) 188 H 149 H 144 H (70-110) mg/dL 11/23/24 11/23/24 11/23/24 Range/Units 04:19 04:19 06:59 RBC 2.72 L (4.30-5.90) m/uL Hgb 8.2 L (13.0-17.5) gm/dL Hct 24.7 L (39.0-53.0) % Chloride 109 H (98-107) mmol/L Carbon Dioxide 20 L (22-30) mmol/L BUN 36 H (9-20) mg/dL Creatinine 3.59 H (0.66-1.25) mg/dL Glucose 101 H (74-99) mg/dL POC Glucose (mg/dL) 115 H (70-110) mg/dL Assessment and Plan Assessment: Acute renal failure, in a patient with poor appetite, etiology unclear. Recent admission with right hydronephrosis secondary to right ureteral calculus, right renal calculi, underwent cystoscopy with removal of bladder calculi, right retrograde pyelogram and right ureteral stent insertion on 11/03/2024 and discharged home on 11/04/2024. Ultrasound reporting mild right sided hydronephrosis. Renal CT reporting placement of right ureteral stent with resolution of right hydronephrosis, resolution of 2 large right renal calcifications 1 in the UPJ and the other in the lower pole of the right kidney, persistent bilateral nonobstructing renal calcifications. Acute UTI with Enterobacter clocae, Enterococcus faecalis Left hand and lower lip numbness, probably related to the above along with electrolyte imbalance as per neurology. Left hand numbness resolved. Left lip numbness improving. Lactic acidosis, resolved Metabolic acidosis, status post bicarb drip, resolved Anemia, multifactorial , secondary to all the above ,aranesp added to med regimine. Sleep apnea uses CPAP Hypertension Hyperlipidemia Diabetes mellitus History of CVA, TIA Prior nicotine dependence Plan: Continue on current medication regimen ,monitoring and symptomatic treatment. Strict I & O,bladder scan q shift, renal/consistent carb diet. Zosyn for acute UTI. Avoiding nephrotoxins. Close monitoring of renal function, with repeat labs ordered for a.m. Increase ambulation as tolerated. PT/OT. Discharge planning in progress tentatively for tomorrow ,pending continued improvement, final DC recommendations/clearance per ID and nephrology. The impression and plan of care has been dictated as directed. : I performed a history and examination of this patient, discussed the same with the dictator. I agree with the dictator's note ,documented as a scribe. Any additional findings or plans will be noted.
[2024-11-23 12:08] LABS: Glucose,Whole Blood 169 mg/dL (70-110)
--- NOTE | 2024-11-23 14:00 | P.PN ---
Subjective Patient is seen for follow-up for acute kidney injury. Renal function had improved but creatinine was up to 4.0 yesterday. Patient was restarted on IV fluids and serum creatinine has improved to 3.59 today. No significant complaints No urine retention noted on bladder scan yesterday. Objective - Vital Signs Vital signs: Vital Signs Temp 98.2 F 11/23/24 12:23 Pulse 64 11/23/24 12:23 Resp 16 11/23/24 12:23 BP 119/69 11/23/24 12:23 Pulse Ox 97 11/23/24 12:23 FiO2 Intake & Output 11/22/24 11/23/24 11/23/24 18:59 06:59 18:59 Intake Total 1040 540 Output Total 750 750 Balance 290 -210 Intake: Oral 1040 540 Output: Urine 500 400 Stool 250 350 Other: Voiding Method Diaper Diaper Diaper External Catheter External Catheter External Catheter - Exam Patient is awake, comfortable, no acute distress Alert oriented x 3 Examination of the heart S1 and S2 Examination of the lungs bilateral breath sounds are heard Abdomen is soft nontender Examination of lower extremities shows no significant edema COLORING CHECKER exam grossly intact - Labs CBC & Chem 7: 11/23/24 04:19 11/23/24 04:19 Labs: Abnormal Lab Results - Last 24 Hours (Table) 11/22/24 11/22/24 11/23/24 Range/Units 17:04 20:50 04:19 RBC 2.72 L (4.30-5.90) m/uL Hgb 8.2 L (13.0-17.5) gm/dL Hct 24.7 L (39.0-53.0) % Chloride (98-107) mmol/L Carbon Dioxide (22-30) mmol/L BUN (9-20) mg/dL Creatinine (0.66-1.25) mg/dL Glucose (74-99) mg/dL POC Glucose (mg/dL) 149 H 144 H (70-110) mg/dL 11/23/24 11/23/24 11/23/24 Range/Units 04:19 06:59 12:07 RBC (4.30-5.90) m/uL Hgb (13.0-17.5) gm/dL Hct (39.0-53.0) % Chloride 109 H (98-107) mmol/L Carbon Dioxide 20 L (22-30) mmol/L BUN 36 H (9-20) mg/dL Creatinine 3.59 H (0.66-1.25) mg/dL Glucose 101 H (74-99) mg/dL POC Glucose (mg/dL) 115 H 169 H (70-110) mg/dL Assessment and Plan Assessment: 1. Acute kidney injury secondary to ATN versus obstructive uropathy. Creatinine 8.37 on admission and is 6.2 ->4.6-> 3.7, increased to 4.0 yesterday but improved back to 3.5 today after IV fluids were restarted. Mild hy dronephrosis noted on the right side on imaging. Not noted on renal CT. Creatinine earlier this month was near 2. 2. Right-sided hydronephrosis with cystoscopy and right ureteral stent placement November 03, 2024. 3. Metabolic acidosis secondary to acute kidney injury and IV fluids. Improved with bicarb drip. 4. Anemia. Iron replete. Component of chronic illness. On Aranesp. 5. Diabetes mellitus. 6. Benign hypertension. Controlled. 7. Nephrolithiasis. 8. Hypernatremia from lack of oral water intake. resolved Plan: Continue with IV fluids Continue Aranesp Continue to encourage increased oral intake Repeat labs
--- NOTE | 2024-11-23 15:09 | P.PN ---
Subjective Progress Note Date: 11/23/24 Principal diagnosis: Reason for follow-up is UTI Patient is a 64-year-old -Turk[place] male with a past medical history significant for diabetes mellitus hypertension hyperlipidemia sleep apnea CVA TIA presenting to the hospital for evaluation of generalized weakness decreased energy has been diagnosed with a UTI urine with Enterococcus and Enterobacter prompted this consultation. On today's evaluation that is 11/23/2024,the patient denies any fever or any chills, patient is breathing comfortably on room air, the patient denies chest pain shortness of breath and no significant cough, patient denies abdominal pain, no nausea vomiting or diarrhea. Patient white count 6.4, creatinine 3.59 Objective - Vital Signs Vital signs: Vital Signs Temp 98.0 F 11/23/24 14:11 Pulse 76 11/23/24 14:11 Resp 18 11/23/24 14:11 BP 109/60 11/23/24 14:11 Pulse Ox 97 11/23/24 12:23 FiO2 Intake & Output 11/22/24 11/23/24 11/23/24 18:59 06:59 18:59 Intake Total 1040 540 Output Total 750 750 Balance 290 -210 Intake: Oral 1040 540 Output: Urine 500 400 Stool 250 350 Other: Voiding Method Diaper Diaper Diaper External Catheter External Catheter External Catheter - Exam GENERAL DESCRIPTION: Middle-age male lying in bed in no distress RESPIRATORY SYSTEM: Unlabored breathing , decreased breath sounds at bases HEART: S1 S2 regular rate and rhythm , ABDOMEN: Soft , no tenderness EXTREMITIES: No edema feet - Labs CBC & Chem 7: 11/23/24 04:19 11/23/24 04:19 Labs: Abnormal Lab Results - Last 24 Hours (Table) 11/22/24 11/22/24 11/23/24 Range/Units 17:04 20:50 04:19 RBC 2.72 L (4.30-5.90) m/uL Hgb 8.2 L (13.0-17.5) gm/dL Hct 24.7 L (39.0-53.0) % Chloride (98-107) mmol/L Carbon Dioxide (22-30) mmol/L BUN (9-20) mg/dL Creatinine (0.66-1.25) mg/dL Glucose (74-99) mg/dL POC Glucose (mg/dL) 149 H 144 H (70-110) mg/dL 11/23/24 11/23/24 11/23/24 Range/Units 04:19 06:59 12:07 RBC (4.30-5.90) m/uL Hgb (13.0-17.5) gm/dL Hct (39.0-53.0) % Chloride 109 H (98-107) mmol/L Carbon Dioxide 20 L (22-30) mmol/L BUN 36 H (9-20) mg/dL Creatinine 3.59 H (0.66-1.25) mg/dL Glucose 101 H (74-99) mg/dL POC Glucose (mg/dL) 115 H 169 H (70-110) mg/dL Assessment and Plan (1) UTI (urinary tract infection) due to Enterococcus Current Visit: Yes Status: Acute Code(s): N39.0 - URINARY TRACT INFECTION, SITE NOT SPECIFIED; B95.2 - ENTEROCOCCUS THE CAUSE OF DISEASES CLASSIFIED ELSEWHERE SNOMED Code(s): 299982678292279 Plan: 1patient was hospitalized weakness patient did have a urinary burning concentrated urine significantly positive UA concerning for symptomatic UTI with urine now showing Enterobacter as well as Enterococcus faecalis 2-patient currently being treated Zosyn to cover for both pathogen discussed with the nursing staff to call the micro lab and the lab and get Cipro sensitivity on Enterobacter so we can plan for outpatient antibiotic therapy Dictation was produced using [email or web address] dictation software. please excuse any grammatical, word or spelling errors. Time with Patient: Less than 30
[2024-11-23 17:05] LABS: Glucose,Whole Blood 222 mg/dL (70-110)
[2024-11-23 20:16] LABS: Glucose,Whole Blood 183 mg/dL (70-110)
[2024-11-24 06:57] LABS: Glucose,Whole Blood 118 mg/dL (70-110)
[2024-11-24 08:27] LABS: BUN/Creat Ratio 8.33 Ratio (12.00-20.00); Blood Urea Nitrogen 32.5 mg/dL (9.0-27.0); Calcium 9.3 mg/dL (8.7-10.3); Chloride 114 mmol/L (96-109); Glucose 121 mg/dL (70-110); Potassium 4.5 mmol/L (3.5-5.5); Sodium 144 mmol/L (135-145)
[2024-11-24 08:53] LABS: HCT 22.8 % (39.6-50.0); HGB 7.1 g/dL (13.0-17.0); MCHC 31.1 g/dL (32.0-37.0); MCV 93.1 FL (80.0-97.0); Mean Platelet Volume 10.8 FL (9.5-12.2); NRBC Per 100 WBC 0 X 10*3/uL (0.00-0.01); Platelet Count 260 X 10*3/uL (140-440); RBC 2.45 X 10*6/uL (4.40-5.60); RDW 14.5 % (11.5-14.5); WBC 8.23 X 10*3/uL (4.50-10.00)
--- NOTE | 2024-11-24 11:50 | P.PN ---
Subjective Patient is seen for follow-up for acute kidney injury. Serum creatinine increased again to 3.9 today. Maintained on IV fluids No significant complaints Urine appears quite dark in color Objective - Vital Signs Vital signs: Vital Signs Temp 98.1 F 11/24/24 11:30 Pulse 68 11/24/24 11:30 Resp 16 11/24/24 11:30 BP 118/72 11/24/24 11:30 Pulse Ox 97 11/24/24 11:30 FiO2 Intake & Output 11/23/24 11/24/24 11/24/24 18:59 06:59 18:59 Intake Total 820 780 480 Output Total 500 876 700 Balance 320 -96 -220 Intake: Oral 820 780 480 Output: Urine 300 250 Post Void Residual 400 Stool 200 626 300 Other: Voiding Method Diaper External Catheter - Exam Patient is awake, comfortable, no acute distress Alert oriented x 3 Examination of the heart S1 and S2 Examination of the lungs bilateral breath sounds are heard Abdomen is soft nontender Examination of lower extremities shows no significant edema CUFF PRESSER exam grossly intact - Labs CBC & Chem 7: 11/24/24 05:50 11/24/24 05:50 Labs: Abnormal Lab Results - Last 24 Hours (Table) 11/23/24 11/23/24 11/23/24 Range/Units 12:07 17:04 20:15 RBC (4.40-5.60) X 10*6/uL Hgb (13.0-17.0) g/dL Hct (39.6-50.0) % MCHC (32.0-37.0) g/dL Chloride (96-109) mmol/L Carbon Dioxide (21.6-31.8) mmol/L BUN (9.0-27.0) mg/dL Creatinine (0.6-1.5) mg/dL Est GFR (CKD-EPI) (>=60) BUN/Creatinine Ratio (12.00-20.00) Ratio Glucose (70-110) mg/dL POC Glucose (mg/dL) 169 H 222 H 183 H (70-110) mg/dL 11/24/24 11/24/24 11/24/24 Range/Units 05:50 05:50 06:56 RBC 2.45 L (4.40-5.60) X 10*6/uL Hgb 7.1 L (13.0-17.0) g/dL Hct 22.8 L (39.6-50.0) % MCHC 31.1 L (32.0-37.0) g/dL Chloride 114 H (96-109) mmol/L Carbon Dioxide 21.0 L (21.6-31.8) mmol/L BUN 32.5 H (9.0-27.0) mg/dL Creatinine 3.9 H (0.6-1.5) mg/dL Est GFR (CKD-EPI) 17 L (>=60) BUN/Creatinine Ratio 8.33 L (12.00-20.00) Ratio Glucose 121 H (70-110) mg/dL POC Glucose (mg/dL) 118 H (70-110) mg/dL Microbiology - Last 24 Hours (Table) 11/15/24 20:40 Urine Culture - Final Urine,Voided Enterobacter cloacae Enterococcus faecalis Assessment and Plan Assessment: 1. Acute kidney injury secondary to ATN versus obstructive uropathy. Creatinine 8.37 on admission and is 6.2 ->4.6-> 3.7, increased to 4.0, IV fluids were restarted. Mild hydronephrosis noted on the right side on imaging. Not noted on renal CT. Creatinine earlier this month was near 2. 2. Right-sided hydronephrosis with cystoscopy and right ureteral stent placement November 03, 2024. 3. Metabolic acidosis secondary to acute kidney injury and IV fluids. Improved with bicarb drip. 4. Anemia. Iron replete. Component of chronic illness. On Aranesp. 5. Diabetes mellitus. 6. Benign hypertension. Controlled. 7. Nephrolithiasis. 8. Hypernatremia from lack of oral water intake. resolved Plan: Continue with IV fluids Repeat ultrasound of the kidney Continue Aranesp Repeat labs
[2024-11-24 12:02] LABS: Glucose,Whole Blood 163 mg/dL (70-110)
--- NOTE | 2024-11-24 13:09 | US ---
EXAMINATION TYPE: US kidneys/renal and bladder DATE OF EXAM: 11/24/2024 COMPARISON: 11/15/2024 CLINICAL INDICATION: Male, 64 years old with history of r/o hydro; Worsening renal function, urine no w dark brown TECHNIQUE: Grayscale imaging of the bilateral kidneys and urinary bladder: FINDINGS: EXAM MEASUREMENTS: Right Kidney: 11.4 x 5.6 x 7.8 cm Left Kidney: 10.0 x 6.8 x 6.2 cm Post Void Residual Volume: NA mL Right Kidney: Multiple cysts and stones redemonstrated, no hydronephrosis noted. Measuring up to 32 mm. Renal cyst measuring up to 7.0 cm. Left Kidney: Multiple stones redemonstrated, no hydronephrosis noted calculus measuring up to 18 mm. Bladder: Stones and Leach noted within Bilateral Jets seen: Not able to assess Normal Post Void Residual: NA IMPRESSION: 1. No evidence for obstructive uropathy. 2. Bilateral obstructing renal calculi. 3. Right renal cyst measuring up to 7 mm. 4. Multiple bladder stones layering dependently. [facility], , 11/24/2024 1:07 PM
--- NOTE | 2024-11-24 14:23 | P.PN ---
Subjective Progress Note Date: 11/24/24 H&P Date: 11/16/24 Chief Complaint: Acute renal This is a 64-year-old gentleman with past medical history significant for recent inpatient admission with right hydronephrosis secondary to right ureteral calculus, right renal calculi- underwent cystoscopy with removal of bladder calculi, right retrograde pyelogram and right ureteral stent insertion on 11/03 and discharged home on 11/04/2024. Past medical history also significant for CVA/TIA ,colectomy, diabetes mellitus, A-fib, hypertension, hyperlipidemia, sleep apnea uses CPAP, former nicotine dependence and multiple other medical issues. at bedside,reports they had gone to [place] post discharge and patient appeared a" little off "there. Reports decreased appetite ,complained of intermittent right flank pain. Denies hematuria. Denies vomiting. Denies diarrhea. Over the last 3 days patient's confusion, muscle strength /weakness worsened and patient was brought into the ER.on admission creatinine 8.37, BUN 70, bicarb 10 .lactic acid 2.4, phosphorus 6.8 .hemoglobin 9.5, platelets 323, INR 1 afebrile, normal WBC .urine reported greater than 182 RBCs and WBCs.repeat labs and urine culture pending. Renal ultrasound reported mild right hydronephrosis, bilateral nonobstructing renal calculi, right renal cyst, multiple probable bladder stones, cholelithiasis. Minimal post void residuals reported no greater than 75 mLs. Urology and nephrology consults in place.IV fluid hydration/bicarb drip initiated. 11/17/2024 this morning,patient reports he still does not feel quite right and reports his entire lower lip and left hand are numb, timeframe/onset unclear- vague historian. Moving left hand and digits. consumed 50% of dinner last night, 25% of breakfast this morning. maintained on bicarb drip ,renal function slowly improving, bicarb increased to 19.7, BUN 64.2, creatinine 7. Bladder scan reporting negative urinary retention .blood sugars controlled, hemoglobin A1c 7. Iron studies noted.Aranesp added to med regimine per nephrology. Renal CT reporting placement of right ureteral stent with resolution of right hydronephrosis, resolution of 2 large right renal calcifications 1 in the UPJ and the other in the lower pole of the right kidney, persistent bilateral nonobstructing renal calcifications. 11/18/2024 Evaluated by neurology yesterday regarding numbness of left hand and lower lip. Patient denied left hand numbness to neurologist at the time of his examination. This morning reports no left hand numbness, lower lip numbness "better".brain CT performed reporting no acute intracranial hemorrhage or midline shift, no significant change from most recent prior CT. vitamin B12 630, folate 6.7. Continue 100% of dinner, breakfast recently arrived at bedside. Maintained on bicarb drip.24-hour I&O inaccurate. labs pending. Afebrile, Tmax 99, urine culture in progress. 11/19/2024 Dillan is admitted for acute renal failure and metabolic encephalopathy . He underwent a right ureteral stent after being admitted several weeks ago for hematuria and nephrolithiasis. He is kidney function continue to improve. His mentation continues to improve. He has no significant plaints today other than right hip pain. Vital signs show he is afebrile heart rate 88 respirate 17 blood pressure stable pulse oximetry 97% on room air. GFR today is now 12. November 20, 2024: Patient continues to be stable and improving. He remains on D5 water at 130 cc/h. He continues oral intake but it is minimal. He remains on her and asked for his anemia Eliquis for A-fib anticoagulation and his other home medications. He denies any chest pains pressure shortness of breath nausea or vomiting today. Vital signs remained stable. He remains afebrile. Labs for today are pending. Most recently GFR from yesterday is 15. Creatinine 4.64. Nephrology consultation reviewed. Regarding his right hip pain, right hip x-ray failed to show any abnormalities. Today's urine is much clear and strawlike. 11/21/2024 urine culture finalized with E. coli, Enterobacter cloque, enteric coccus faecalis. Zosyn initiated, ID consulted. Oral intake improving,renal function improving -yesterday GFR 18, creatinine decreased to 3.95. nephrology reporting no need for renal biopsy or urgent hemodialysis at this time. Labs pending. Spontaneously voiding, 11/22/2024 urology reports chemical analysis of renal calculi reported uric acid composition, recommending treatment with urinary alkalinization to dissolve calculi. Maintained on Zosyn for UTI, Enterococcus and Enterobacter. Afebrile, WBC within normal limits. Hemoglobin decreased to 7.5, platelets 254, no active bleeding noted-denies bleeding. sodium 141, potassium 4.8, bicarb 21.2, BUN 34.6, creatinine increased to 4. blood sugars controlled. 11/23/24 staff reports bladder scan of 64 mL at approximately 8 PM , this a.m.'s bladder scan pending.Hemoglobin increased to 8.2. Continues on Zosyn, afebrile, normal WBC. Bicarb 20 BUN 36, creatinine decreased to 3.59. Blood sugars controlled. Showered this morning, tolerated exertion well. 11/24/2024 ambulated with PT in hallway today, tolerated exertion well. Urine appears darker this morning ,repeat renal ultrasound ordered. Hemoglobin decreased to 7.1, bicarb 21, BUN 32.5, creatinine increased to 3.9. Maintained on IV fluid hydration. Continues on Zosyn, afebrile, normal white count. Objective - Vital Signs Vital signs: Vital Signs Temp 98.1 F 11/24/24 11:30 Pulse 68 11/24/24 11:30 Resp 16 11/24/24 11:30 BP 118/72 11/24/24 11:30 Pulse Ox 97 11/24/24 11:30 FiO2 Intake & Output 11/23/24 11/24/24 11/24/24 18:59 06:59 18:59 Intake Total 221 407 8693 Output Total 500 876 700 Balance 320 -96 500 Intake: Oral 504 731 0666 Output: Urine 300 250 Post Void Residual 400 Stool 200 626 300 Other: Voiding Method Diaper Diaper External Catheter External Catheter - Exam General:alert and oriented x 3, sitting up in bed, no acute distress. Neck: neck is supple, no JVD. Cardiovascular: S1,S2 normal,regular rate and rhythm. No murmur, rub or gallop appreciated. Respiratory: Unlabored, equal air entry ,lungs are clear to auscultation. Gastrointestinal: Soft, non-distended, nontender. no rigidity, no guarding, functioning ostomy present, +Bowel sounds. EXTREM: no pedal edema. No calf tenderness or swelling. Neurological: CN II-XII intact, Strength and sensation grossly intact: Right- sided residual weakness from prior CVA. Skin: Skin is warm and dry, no rashes noted. - Labs CBC & Chem 7: 11/24/24 05:50 11/24/24 05:50 Labs: Abnormal Lab Results - Last 24 Hours (Table) 11/23/24 11/23/24 11/24/24 Range/Units 17:04 20:15 05:50 RBC 2.45 L (4.40-5.60) X 10*6/uL Hgb 7.1 L (13.0-17.0) g/dL Hct 22.8 L (39.6-50.0) % MCHC 31.1 L (32.0-37.0) g/dL Chloride (96-109) mmol/L Carbon Dioxide (21.6-31.8) mmol/L BUN (9.0-27.0) mg/dL Creatinine (0.6-1.5) mg/dL Est GFR (CKD-EPI) (>=60) BUN/Creatinine Ratio (12.00-20.00) Ratio Glucose (70-110) mg/dL POC Glucose (mg/dL) 222 H 183 H (70-110) mg/dL 11/24/24 11/24/24 11/24/24 Range/Units 05:50 06:56 12:01 RBC (4.40-5.60) X 10*6/uL Hgb (13.0-17.0) g/dL Hct (39.6-50.0) % MCHC (32.0-37.0) g/dL Chloride 114 H (96-109) mmol/L Carbon Dioxide 21.0 L (21.6-31.8) mmol/L BUN 32.5 H (9.0-27.0) mg/dL Creatinine 3.9 H (0.6-1.5) mg/dL Est GFR (CKD-EPI) 17 L (>=60) BUN/Creatinine Ratio 8.33 L (12.00-20.00) Ratio Glucose 121 H (70-110) mg/dL POC Glucose (mg/dL) 118 H 163 H (70-110) mg/dL Microbiology - Last 24 Hours (Table) 11/15/24 20:40 Urine Culture - Final Urine,Voided Enterobacter cloacae Enterococcus faecalis Assessment and Plan Assessment: Acute renal failure, in a patient with poor appetite, etiology unclear. Recent a dmission with right hydronephrosis secondary to right ureteral calculus, right renal calculi, underwent cystoscopy with removal of bladder calculi, right retrograde pyelogram and right ureteral stent insertion on 11/03/2024 and discharged home on 11/04/2024. Ultrasound reporting mild right sided hydr onephrosis. Renal CT reporting placement of right ureteral stent with resolution of right hydronephrosis, resolution of 2 large right renal calcifications 1 in the UPJ and the other in the lower pole of the right kidney, persistent bilateral nonobstructing renal calcifications. Acute UTI with Enterobacter clocae, Enterococcus faecalis Left hand and lower lip numbness, probably related to the above along with electrolyte imbalance as per neurology. Left hand numbness resolved. Left lip numbness improving. Lactic acidosis, resolved Metabolic acidosis, status post bicarb drip, resolved Anemia, multifactorial , secondary to all the above ,aranesp added to med regimine. Sleep apnea uses CPAP Hypertension Hyperlipidemia Diabetes mellitus History of CVA, TIA Prior nicotine dependence Plan: Continue on current medication regimen ,monitoring and symptomatic treatment. Repeat renal ultrasound pending. Maintain IV fluid hydration. Transfuse if hemoglobin less than 7. renal/consistent carb diet. Zosyn for acute UTI. Avoiding nephrotoxins. Close monitoring of renal function, hemoglobin with repeat labs ordered for a.m. Increase ambulation as tolerated. PT/OT. Discharge planning in progress tentatively for tomorrow ,pending continued improvement, final DC recommendations/clearance per ID and nephrology. The impression and plan of care has been dictated as directed. : I performed a history and examination of this patient, discussed the same with the dictator. I agree with the dictator's note ,documented as a scribe. Any additional findings or plans will be noted.
--- NOTE | 2024-11-24 15:34 | P.PN ---
Subjective Progress Note Date: 11/24/24 Principal diagnosis: Reason for follow-up is UTI Patient is a 64-year-old -[place] male with a past medical history significant for diabetes mellitus hypertension hyperlipidemia sleep apnea CVA TIA presenting to the hospital for evaluation of generalized weakness decreased energy has been diagnosed with a UTI urine with Enterococcus and Enterobacter prompted this consultation. On today's evaluation that is 11/24/2024,the patient remains to be afebrile, patient is on room air not requiring supplemental oxygen and denies any shortness of breath no chest pain or cough.Patient denies having any nausea or vomiting, some abdominal discomfort no diarrhea. Patient white count is 8.23, creatinine 3.9 Objective - Vital Signs Vital signs: Vital Signs Temp 98.1 F 11/24/24 11:30 Pulse 68 11/24/24 11:30 Resp 16 11/24/24 11:30 BP 118/72 11/24/24 11:30 Pulse Ox 97 11/24/24 11:30 FiO2 Intake & Output 11/23/24 11/24/24 11/24/24 18:59 06:59 18:59 Intake Total 820 780 480 Output Total 500 876 700 Balance 320 -96 -220 Intake: Oral 820 780 480 Output: Urine 300 250 Post Void Residual 400 Stool 200 626 300 Other: Voiding Method Diaper Diaper External Catheter External Catheter - Exam GENERAL DESCRIPTION: Middle-age male lying in bed in no distress RESPIRATORY SYSTEM: Unlabored breathing , decreased breath sounds at bases HEART: S1 S2 regular rate and rhythm , ABDOMEN: Soft , no tenderness EXTREMITIES: No edema feet - Labs CBC & Chem 7: 11/24/24 05:50 11/24/24 05:50 Labs: Abnormal Lab Results - Last 24 Hours (Table) 11/23/24 11/23/24 11/24/24 Range/Units 17:04 20:15 05:50 RBC 2.45 L (4.40-5.60) X 10*6/uL Hgb 7.1 L (13.0-17.0) g/dL Hct 22.8 L (39.6-50.0) % MCHC 31.1 L (32.0-37.0) g/dL Chloride (96-109) mmol/L Carbon Dioxide (21.6-31.8) mmol/L BUN (9.0-27.0) mg/dL Creatinine (0.6-1.5) mg/dL Est GFR (CKD-EPI) (>=60) BUN/Creatinine Ratio (12.00-20.00) Ratio Glucose (70-110) mg/dL POC Glucose (mg/dL) 222 H 183 H (70-110) mg/dL 11/24/24 11/24/24 11/24/24 Range/Units 05:50 06:56 12:01 RBC (4.40-5.60) X 10*6/uL Hgb (13.0-17.0) g/dL Hct (39.6-50.0) % MCHC (32.0-37.0) g/dL Chloride 114 H (96-109) mmol/L Carbon Dioxide 21.0 L (21.6-31.8) mmol/L BUN 32.5 H (9.0-27.0) mg/dL Creatinine 3.9 H (0.6-1.5) mg/dL Est GFR (CKD-EPI) 17 L (>=60) BUN/Creatinine Ratio 8.33 L (12.00-20.00) Ratio Glucose 121 H (70-110) mg/dL POC Glucose (mg/dL) 118 H 163 H (70-110) mg/dL Microbiology - Last 24 Hours (Table) 11/15/24 20:40 Urine Culture - Final Urine,Voided Enterobacter cloacae Enterococcus faecalis Assessment and Plan (1) UTI (urinary tract infection) due to Enterococcus Current Visit: Yes Status: Acute Code(s): N39.0 - URINARY TRACT INFECTION, SITE NOT SPECIFIED; B95.2 - ENTEROCOCCUS THE CAUSE OF DISEASES CLASSIFIED ELSEWHERE SNOMED Code(s): 716883393040352 Plan: 1patient was hospitalized weakness patient did have a urinary burning concentrated urine significantly positive UA concerning for symptomatic UTI with urine now showing Enterobacter as well as Enterococcus faecalis 2-patient with detail with the Zosyn while inpatient however will be able to finish therapy with the renal dose Cipro and Augmentin x 7 days on discharge this were discussed with the GAMING DEALER for admitting team Dictation was produced using [employer] software. please excuse any grammatical, word or spelling errors. Time with Patient: Less than 30
[2024-11-24 17:05] LABS: Glucose,Whole Blood 169 mg/dL (70-110)
[2024-11-24 20:11] LABS: Glucose,Whole Blood 177 mg/dL (70-110)
[2024-11-25 07:17] LABS: Glucose,Whole Blood 117 mg/dL (70-110)
[2024-11-25 08:37] LABS: BUN/Creat Ratio 8.44 Ratio (12.00-20.00); Blood Urea Nitrogen 28.7 mg/dL (9.0-27.0); Calcium 9.3 mg/dL (8.7-10.3); Carbon Dioxide 18.9 mmol/L (21.6-31.8); Chloride 113 mmol/L (96-109); Glucose 108 mg/dL (70-110); Potassium 4.5 mmol/L (3.5-5.5); Sodium 144 mmol/L (135-145)
[2024-11-25 08:41] LABS: Basophils # (A) 0.03 X 10*3/uL (0.00-0.10); Basophils % (A) 0.4 %; Eosinophils # (A) 0.46 X 10*3/uL (0.04-0.35); Eosinophils % (A) 5.6 %; HCT 23.8 % (39.6-50.0); HGB 7.2 g/dL (13.0-17.0); Lymphocytes # (A) 1.62 X 10*3/uL (0.90-5.00); Lymphocytes % (A) 19.8 %; MCH 28.6 pg (27.0-32.0); MCHC 30.3 g/dL (32.0-37.0); MCV 94.4 FL (80.0-97.0); Mean Platelet Volume 10.9 FL (9.5-12.2); Monocytes % (A) 7.3 %; NRBC Per 100 WBC 0 X 10*3/uL (0.00-0.01); Neutrophils # (A) 5.42 X 10*3/uL (1.80-7.70); Neutrophils % (A) 66.4 %; Platelet Count 264 X 10*3/uL (140-440); RBC 2.52 X 10*6/uL (4.40-5.60); RDW 14.6 % (11.5-14.5); WBC 8.17 X 10*3/uL (4.50-10.00)
--- NOTE | 2024-11-25 09:18 | P.PN ---
Subjective Progress Note Date: 11/25/24 Principal diagnosis: Renal calculi The patient is a 64-year-old white male who underwent right ureteral stent insertion on November 03 to relieve obstruction caused by a right UPJ calculus. The calculi were radiolucent, and he was found to have multiple small bladder calculi which were removed and sent for chemical analysis. As suspected, the calculi were of uric acid composition. He is now admitted with renal failure. Imaging shows resolution of his hydronephrosis. His urine is tea colored. Urine culture shows a UTI (Enterococcus and Enterobacter), for which he is recei ving Esthersyn. Objective - Vital Signs Vital signs: Vital Signs Temp 98.7 F 11/25/24 01:34 Pulse 78 11/25/24 01:34 Resp 12 11/25/24 01:34 BP 132/71 11/25/24 01:34 Pulse Ox 98 11/25/24 01:34 FiO2 Intake & Output 11/24/24 11/24/24 11/25/24 06:59 18:59 06:59 Intake Total 780 3600 240 Output Total 876 2300 500 Balance -96 1300 -260 Intake: Oral 780 3600 240 Output: Urine 250 1600 500 Post Void Residual 400 Stool 626 300 Other: Voiding Method Diaper Diaper External Catheter External Catheter - Constitutional General appearance: Present: average body habitus, cooperative, no acute distress - Psychiatric Psychiatric: Present: A&O x's 3 - Labs CBC & Chem 7: 11/25/24 04:40 11/25/24 04:40 Labs: Abnormal Lab Results - Last 24 Hours (Table) 11/24/24 11/24/24 11/24/24 Range/Units 05:50 05:50 06:56 RBC 2.45 L (4.40-5.60) X 10*6/uL Hgb 7.1 L (13.0-17.0) g/dL Hct 22.8 L (39.6-50.0) % MCHC 31.1 L (32.0-37.0) g/dL Chloride 114 H (96-109) mmol/L Carbon Dioxide 21.0 L (21.6-31.8) mmol/L BUN 32.5 H (9.0-27.0) mg/dL Creatinine 3.9 H (0.6-1.5) mg/dL Est GFR (CKD-EPI) 17 L (>=60) BUN/Creatinine Ratio 8.33 L (12.00-20.00) Ratio Glucose 121 H (70-110) mg/dL POC Glucose (mg/dL) 118 H (70-110) mg/dL 11/24/24 11/24/24 11/24/24 Range/Units 12:01 17:02 20:09 RBC (4.40-5.60) X 10*6/uL Hgb (13.0-17.0) g/dL Hct (39.6-50.0) % MCHC (32.0-37.0) g/dL Chloride (96-109) mmol/L Carbon Dioxide (21.6-31.8) mmol/L BUN (9.0-27.0) mg/dL Creatinine (0.6-1.5) mg/dL Est GFR (CKD-EPI) (>=60) BUN/Creatinine Ratio (12.00-20.00) Ratio Glucose (70-110) mg/dL POC Glucose (mg/dL) 163 H 169 H 177 H (70-110) mg/dL Assessment and Plan (1) Urinary tract infection Current Visit: No Status: Acute Code(s): N39.0 - URINARY TRACT INFECTION, SITE NOT SPECIFIED SNOMED Code(s): 76409472 (2) Renal calculi Current Visit: No Status: Acute Code(s): N20.0 - CALCULUS OF KIDNEY SNOMED Code(s): 09052124 Plan: Continue antibiotics. The patient would benefit from urinary alkalinization to achieve a urine pH of 7, as this would result in dissolution of the uric acid calculi, though this may need to be deferred until his renal function improves. I did discuss with the patient that I could perform ureteroscopy to reduce the size of the calculi, which would make urinary alkalinization more effective. Incidentally, there was some confusion regarding the renal ultrasound performed on November 24, but it showed no evidence of hydronephrosis.
[2024-11-25] MEDS: LACTOBACILLUS ACIDOPHILUS/PECT 1 EACH CAPSULE PO SCH (09:27)
[2024-11-25 12:09] LABS: Glucose,Whole Blood 197 mg/dL (70-110)
--- NOTE | 2024-11-25 13:01 | P.PN ---
Subjective Progress Note Date: 11/25/24 H&P Date: 11/16/24 Chief Complaint: Acute renal This is a 64-year-old gentleman with past medical history significant for recent inpatient admission with right hydronephrosis secondary to right ureteral calculus, right renal calculi- underwent cystoscopy with removal of bladder calculi, right retrograde pyelogram and right ureteral stent insertion on 11/03 and discharged home on 11/04/2024. Past medical history also significant for CVA/TIA ,colectomy, diabetes mellitus, A-fib, hypertension, hyperlipidemia, sleep apnea uses CPAP, former nicotine dependence and multiple other medical issues. at bedside,reports they had gone to [place] post discharge and patient appeared a" little off "there. Reports decreased appetite ,complained of intermittent right flank pain. Denies hematuria. Denies vomiting. Denies diarrhea. Over the last 3 days patient's confusion, muscle strength /weakness worsened and patient was brought into the ER.on admission creatinine 8.37, BUN 70, bicarb 10 .lactic acid 2.4, phosphorus 6.8 .hemoglobin 9.5, platelets 323, INR 1 afebrile, normal WBC .urine reported greater than 182 RBCs and WBCs.repeat labs and urine culture pending. Renal ultrasound reported mild right hydronephrosis, bilateral nonobstructing renal calculi, right renal cyst, multiple probable bladder stones, cholelithiasis. Minimal post void residuals reported no greater than 75 mLs. Urology and nephrology consults in place.IV fluid hydration/bicarb drip initiated. 11/17/2024 this morning,patient reports he still does not feel quite right and reports his entire lower lip and left hand are numb, timeframe/onset unclear- vague historian. Moving left hand and digits. consumed 50% of dinner last night, 25% of breakfast this morning. maintained on bicarb drip ,renal function slowly improving, bicarb increased to 19.7, BUN 64.2, creatinine 7. Bladder scan reporting negative urinary retention .blood sugars controlled, hemoglobin A1c 7. Iron studies noted.Aranesp added to med regimine per nephrology. Renal CT reporting placement of right ureteral stent with resolution of right hydronephrosis, resolution of 2 large right renal calcifications 1 in the UPJ and the other in the lower pole of the right kidney, persistent bilateral nonobstructing renal calcifications. 11/18/2024 Evaluated by neurology yesterday regarding numbness of left hand and lower lip. Patient denied left hand numbness to neurologist at the time of his examination. This morning reports no left hand numbness, lower lip numbness "better".brain CT performed reporting no acute intracranial hemorrhage or midline shift, no significant change from most recent prior CT. vitamin B12 630, folate 6.7. Continue 100% of dinner, breakfast recently arrived at bedside. Maintained on bicarb drip.24-hour I&O inaccurate. labs pending. Afebrile, Tmax 99, urine culture in progress. 11/19/2024 Dillan is admitted for acute renal failure and metabolic encephalopathy . He underwent a right ureteral stent after being admitted several weeks ago for hematuria and nephrolithiasis. He is kidney function continue to improve. His mentation continues to improve. He has no significant plaints today other than right hip pain. Vital signs show he is afebrile heart rate 88 respirate 17 blood pressure stable pulse oximetry 97% on room air. GFR today is now 12. November 20, 2024: Patient continues to be stable and improving. He remains on D5 water at 130 cc/h. He continues oral intake but it is minimal. He remains on her and asked for his anemia Eliquis for A-fib anticoagulation and his other home medications. He denies any chest pains pressure shortness of breath nausea or vomiting today. Vital signs remained stable. He remains afebrile. Labs for today are pending. Most recently GFR from yesterday is 15. Creatinine 4.64. Nephrology consultation reviewed. Regarding his right hip pain, right hip x-ray failed to show any abnormalities. Today's urine is much clear and strawlike. 11/21/2024 urine culture finalized with E. coli, Enterobacter cloque, enteric coccus faecalis. Zosyn initiated, ID consulted. Oral intake improving,renal function improving -yesterday GFR 18, creatinine decreased to 3.95. nephrology reporting no need for renal biopsy or urgent hemodialysis at this time. Labs pending. Spontaneously voiding, 11/22/2024 urology reports chemical analysis of renal calculi reported uric acid composition, recommending treatment with urinary alkalinization to dissolve calculi. Maintained on Zosyn for UTI, Enterococcus and Enterobacter. Afebrile, WBC within normal limits. Hemoglobin decreased to 7.5, platelets 254, no active bleeding noted-denies bleeding. sodium 141, potassium 4.8, bicarb 21.2, BUN 34.6, creatinine increased to 4. blood sugars controlled. 11/23/24 staff reports bladder scan of 64 mL at approximately 8 PM , this a.m.'s bladder scan pending.Hemoglobin increased to 8.2. Continues on Zosyn, afebrile, normal WBC. Bicarb 20 BUN 36, creatinine decreased to 3.59. Blood sugars controlled. Showered this morning, tolerated exertion well. 11/24/2024 ambulated with PT in hallway today, tolerated exertion well. Urine appears darker this morning ,repeat renal ultrasound ordered. Hemoglobin decreased to 7.1, bicarb 21, BUN 32.5, creatinine increased to 3.9. Maintained on IV fluid hydration. Continues on Zosyn, afebrile, normal white count. 11/25/2024 repeat renal ultrasound ordered reporting no evidence of obstructive uropathy, bilateral nonobstructing renal calculi, right renal cyst measuring up to 7 cm, multiple bladder stones layering dependently. Tea colored urine. bicarb 18.9, bicarb drip ordered. BUN 28.7, creatinine decreased to 3.4. Hemoglobin 7.2. Maintained on aranesp. continues on Zosyn. Diet intake improving. Reports left upper quadrant abdominal discomfort. Ambulated in the hallway yesterday, tolerated exertion well. Objective - Vital Signs Vital signs: Vital Signs Temp 98.4 F 11/25/24 11:46 Pulse 76 11/25/24 11:46 Resp 16 11/25/24 11:46 BP 116/65 11/25/24 11:46 Pulse Ox 100 11/25/24 11:46 FiO2 Intake & Output 11/24/24 11/25/24 11/25/24 18:59 06:59 18:59 Intake Total 3600 240 480 Output Total 2300 500 Balance 1300 -260 480 Intake: Oral 3600 240 480 Output: Urine 1600 500 Post Void Residual 400 Stool 300 Other: Voiding Method Diaper Diaper External Catheter External Catheter External Catheter - Exam General:alert and oriented x 3, sitting up in bed, no acute distress. Neck: neck is supple, no JVD. Cardiovascular: S1,S2 normal,regular rate and rhythm. No murmur, rub or gallop appreciated. Respiratory: Unlabored, equal air entry ,lungs are clear to auscultation. Gastrointestinal: Soft, non-distended, left upper quadrant tenderness. no rigidity, no guarding, functioning ostomy present, +Bowel sounds. EXTREM: no pedal edema. No calf tenderness or swelling. Neurological: CN II-XII intact, Strength and sensation grossly intact: Right- sided residual weakness from prior CVA. Skin: Skin is warm and dry, no rashes noted. Microbiology 11/15/24 20:40 Urine,Voided Urine Culture - Final Enterobacter cloacae Enterococcus faecalis - Labs CBC & Chem 7: 11/25/24 04:40 11/25/24 04:40 Labs: Abnormal Lab Results - Last 24 Hours (Table) 11/24/24 11/24/24 11/25/24 Range/Units 17:02 20:09 04:40 RBC 2.52 L (4.40-5.60) X 10*6/uL Hgb 7.2 L (13.0-17.0) g/dL Hct 23.8 L (39.6-50.0) % MCHC 30.3 L (32.0-37.0) g/dL RDW 14.6 H (11.5-14.5) % Eosinophils # 0.46 H (0.04-0.35) X 10*3/uL Chloride (96-109) mmol/L Carbon Dioxide (21.6-31.8) mmol/L Anion Gap (4.00-12.00) mmol/L BUN (9.0-27.0) mg/dL Creatinine (0.6-1.5) mg/dL Est GFR (CKD-EPI) (>=60) BUN/Creatinine Ratio (12.00-20.00) Ratio POC Glucose (mg/dL) 169 H 177 H (70-110) mg/dL 11/25/24 11/25/24 11/25/24 Range/Units 04:40 07:16 12:08 RBC (4.40-5.60) X 10*6/uL Hgb (13.0-17.0) g/dL Hct (39.6-50.0) % MCHC (32.0-37.0) g/dL RDW (11.5-14.5) % Eosinophils # (0.04-0.35) X 10*3/uL Chloride 113 H (96-109) mmol/L Carbon Dioxide 18.9 L (21.6-31.8) mmol/L Anion Gap 12.10 H (4.00-12.00) mmol/L BUN 28.7 H (9.0-27.0) mg/dL Creatinine 3.4 H (0.6-1.5) mg/dL Est GFR (CKD-EPI) 20 L (>=60) BUN/Creatinine Ratio 8.44 L (12.00-20.00) Ratio POC Glucose (mg/dL) 117 H 197 H (70-110) mg/dL Assessment and Plan Assessment: Acute renal failure, in a patient with poor appetite, etiology unclear. Recent admission with right hydronephrosis secondary to right ureteral calculus, right renal calculi, underwent cystoscopy with removal of bladder calculi, right retrograde pyelogram and right ureteral stent insertion on 11/03/2024 and discharged home on 11/04/2024. Ultrasound reporting mild right sided hydronephrosis. Renal CT reporting placement of right ureteral stent with resolution of right hydronephrosis, resolution of 2 large right renal calcifications 1 in the UPJ and the other in the lower pole of the right kidney, persistent bilateral nonobstructing renal calcifications. Acute UTI with Enterobacter clocae, Enterococcus faecalis Left hand and lower lip numbness, probably related to the above along with electrolyte imbalance as per neurology. Left hand and left lip numbness resolved. Lactic acidosis, resolved Metabolic acidosis, status post bicarb drip. Bicarb drip resumed on 11/25/2024. Anemia, multifactorial , secondary to all the above ,aranesp added to med regimine. Sleep apnea uses CPAP Hypertension Hyperlipidemia Diabetes mellitus History of CVA, TIA Prior nicotine dependence Plan: Continue on current medication regimen ,monitoring and symptomatic treatment. Bicarb drip. Transfuse if hemoglobin less than 7. Avoid nephrotoxins. Zosyn for acute UTI. Close monitoring of renal function, hemoglobin with repeat labs ordered for a.m. PT/OT. Urology, nephrology and infectious disease following. The impression and plan of care has been dictated as directed. : I performed a history and examination of this patient, discussed the same with the dictator. I agree with the dictator's note ,documented as a scribe. Any additional findings or plans will be noted.
[2024-11-25] MEDS: DEXTROSE 5% IN WATER 1,000 ML with SODIUM BICARB (1 MEQ/ML) 150 ML IV SCH (13:23)
--- NOTE | 2024-11-25 16:15 | P.PN ---
Subjective Patient is seen for follow-up for acute kidney injury. Serum creatinine staying at 3.4 to 3.9 mg/dL. Maintained on IV fluids Repeat ultrasound showed multiple bladder stones and no evidence of hydronephrosis. Patient has uric acid stones. He will be maintained on bicarb drip to help alkalinize the urine. Urine appears quite dark in color Objective - Vital Signs Vital signs: Vital Signs Temp 98.7 F 11/25/24 13:37 Pulse 78 11/25/24 13:37 Resp 16 11/25/24 13:37 BP 130/68 11/25/24 13:37 Pulse Ox 98 11/25/24 13:37 FiO2 Intake & Output 11/24/24 11/25/24 11/25/24 18:59 06:59 18:59 Intake Total 3600 240 960 Output Total 2300 500 Balance 1300 -260 960 Intake: Oral 3600 240 960 Output: Urine 1600 500 Post Void Residual 400 Stool 300 Other: Voiding Method Diaper Diaper External Catheter External Catheter External Catheter - Exam Patient is awake, comfortable, no acute distress Alert oriented x 3 Examination of the heart S1 and S2 Examination of the lungs bilateral breath sounds are heard Abdomen is soft nontender Examination of lower extremities shows no significant edema SHANK INSPECTOR exam grossly intact - Labs CBC & Chem 7: 11/25/24 04:40 11/25/24 04:40 Labs: Abnormal Lab Results - Last 24 Hours (Table) 11/24/24 11/24/24 11/25/24 Range/Units 17:02 20:09 04:40 RBC 2.52 L (4.40-5.60) X 10*6/uL Hgb 7.2 L (13.0-17.0) g/dL Hct 23.8 L (39.6-50.0) % MCHC 30.3 L (32.0-37.0) g/dL RDW 14.6 H (11.5-14.5) % Eosinophils # 0.46 H (0.04-0.35) X 10*3/uL Chloride (96-109) mmol/L Carbon Dioxide (21.6-31.8) mmol/L Anion Gap (4.00-12.00) mmol/L BUN (9.0-27.0) mg/dL Creatinine (0.6-1.5) mg/dL Est GFR (CKD-EPI) (>=60) BUN/Creatinine Ratio (12.00-20.00) Ratio POC Glucose (mg/dL) 169 H 177 H (70-110) mg/dL 11/25/24 11/25/24 11/25/24 Range/Units 04:40 07:16 12:08 RBC (4.40-5.60) X 10*6/uL Hgb (13.0-17.0) g/dL Hct (39.6-50.0) % MCHC (32.0-37.0) g/dL RDW (11.5-14.5) % Eosinophils # (0.04-0.35) X 10*3/uL Chloride 113 H (96-109) mmol/L Carbon Dioxide 18.9 L (21.6-31.8) mmol/L Anion Gap 12.10 H (4.00-12.00) mmol/L BUN 28.7 H (9.0-27.0) mg/dL Creatinine 3.4 H (0.6-1.5) mg/dL Est GFR (CKD-EPI) 20 L (>=60) BUN/Creatinine Ratio 8.44 L (12.00-20.00) Ratio POC Glucose (mg/dL) 117 H 197 H (70-110) mg/dL Assessment and Plan Assessment: 1. Acute kidney injury secondary to ATN versus obstructive uropathy. Creatinine 8.37 on admission and is 6.2 ->4.6-> 3.7, increased to 4.0, IV fluids were restarted. Mild hydronephrosis noted on the right side on imaging. Not noted on renal CT. Creatinine earlier this month was near 2. 2. Right-sided hydronephrosis with cystoscopy and right ureteral stent placement November 03, 2024. 3. Metabolic acidosis secondary to acute kidney injury and IV fluids. Improved with bicarb drip. 4. Anemia. Iron replete. Component of chronic illness. On Aranesp. 5. Diabetes mellitus. 6. Benign hypertension. Controlled. 7. Nephrolithiasis with history of uric acid stones. Patient will be started o n bicarb drip to help alkalinize the urine. 8. Hypernatremia from lack of oral water intake. resolved Plan: Change IV fluids to IV bicarb Discussed with urology. Patient may still need further intervention regarding the stones. This will be reevaluated next week. Continue Aranesp Repeat labs
[2024-11-25 17:20] LABS: Glucose,Whole Blood 203 mg/dL (70-110)
[2024-11-25 20:15] LABS: Glucose,Whole Blood 96 mg/dL (70-110)
[2024-11-25] MEDS: SODIUM BICARBONATE TAB 650 MG TAB PO SCH (20:41)
[2024-11-26 06:56] LABS: Glucose,Whole Blood 128 mg/dL (70-110)
[2024-11-26] MEDS ORDERED: HYDROcodone/APAP 5-325MG 1 EACH TAB PO PRN (07:13)
--- NOTE | 2024-11-26 07:18 | P.PN ---
Subjective Progress Note Date: 11/25/24 Principal diagnosis: Reason for follow-up is UTI Patient is a 64-year-old -Faro[place] male with a past medical history significant for diabetes mellitus hypertension hyperlipidemia sleep apnea CVA TIA presenting to the hospital for evaluation of generalized weakness decreased energy has been diagnosed with a UTI urine with Enterococcus and Enterobacter prompted this consultation. On today's evaluation that is 11/25/2024, the patient continues to be afebrile, the patient is on room air and breathing comfortably, the Pt denies having any chest pain or cough, the patient denies having any abdominal pain no vomiting or any diarrhea has been reported by the nursing staff. Patient did have a white count of 8.17, creatinine 3.4 Objective - Vital Signs Vital signs: Vital Signs Temp 98.3 F 11/25/24 07:41 Pulse 81 11/25/24 07:41 Resp 15 11/25/24 07:41 BP 126/74 11/25/24 07:41 Pulse Ox 99 11/25/24 07:41 FiO2 Intake & Output 11/24/24 11/25/24 11/25/24 18:59 06:59 18:59 Intake Total 3600 240 480 Output Total 2300 500 Balance 1300 -260 480 Intake: Oral 3600 240 480 Output: Urine 1600 500 Post Void Residual 400 Stool 300 Other: Voiding Method Diaper Diaper External Catheter External Catheter External Catheter - Exam GENERAL DESCRIPTION: Middle-age male lying in bed in no distress RESPIRATORY SYSTEM: Unlabored breathing , decreased breath sounds at bases HEART: S1 S2 regular rate and rhythm , ABDOMEN: Soft , no tenderness EXTREMITIES: No edema feet - Labs CBC & Chem 7: 11/25/24 04:40 11/25/24 04:40 Labs: Abnormal Lab Results - Last 24 Hours (Table) 11/24/24 11/24/24 11/24/24 Range/Units 12:01 17:02 20:09 RBC (4.40-5.60) X 10*6/uL Hgb (13.0-17.0) g/dL Hct (39.6-50.0) % MCHC (32.0-37.0) g/dL RDW (11.5-14.5) % Eosinophils # (0.04-0.35) X 10*3/uL Chloride (96-109) mmol/L Carbon Dioxide (21.6-31.8) mmol/L Anion Gap (4.00-12.00) mmol/L BUN (9.0-27.0) mg/dL Creatinine (0.6-1.5) mg/dL Est GFR (CKD-EPI) (>=60) BUN/Creatinine Ratio (12.00-20.00) Ratio POC Glucose (mg/dL) 163 H 169 H 177 H (70-110) mg/dL 11/25/24 11/25/24 11/25/24 Range/Units 04:40 04:40 07:16 RBC 2.52 L (4.40-5.60) X 10*6/uL Hgb 7.2 L (13.0-17.0) g/dL Hct 23.8 L (39.6-50.0) % MCHC 30.3 L (32.0-37.0) g/dL RDW 14.6 H (11.5-14.5) % Eosinophils # 0.46 H (0.04-0.35) X 10*3/uL Chloride 113 H (96-109) mmol/L Carbon Dioxide 18.9 L (21.6-31.8) mmol/L Anion Gap 12.10 H (4.00-12.00) mmol/L BUN 28.7 H (9.0-27.0) mg/dL Creatinine 3.4 H (0.6-1.5) mg/dL Est GFR (CKD-EPI) 20 L (>=60) BUN/Creatinine Ratio 8.44 L (12.00-20.00) Ratio POC Glucose (mg/dL) 117 H (70-110) mg/dL Assessment and Plan (1) UTI (urinary tract infection) due to Enterococcus Current Visit: Yes Status: Acute Code(s): N39.0 - URINARY TRACT INFECTION, SITE NOT SPECIFIED; B95.2 - ENTEROCOCCUS THE CAUSE OF DISEASES CLASSIFIED ELSEWHERE SNOMED Code(s): 524561259724578 Plan: 1patient was hospitalized weakness patient did have a urinary burning concentrated urine significantly positive UA concerning for symptomatic UTI with urine now showing Enterobacter as well as Enterococcus faecalis 2-patient currently being treated with the Zosyn and will monitor his clinical course closely family at the bedside question concern answered Dictation was produced using [employer] dictation software. please excuse any grammatical, word or spelling errors. Time with Patient: Less than 30
--- NOTE | 2024-11-26 08:29 | P.PN ---
Subjective Patient is seen in follow-up for acute kidney injury. Renal function gradually improving. Nonoliguric. Oral intake fair. Vital signs are stable. General: No acute distress. HEENT: Head exam is unremarkable. LUNGS: No audible rhonchi or wheezes. HEART: Rate and Rhythm are regular. ABDOMEN: Nontender. EXTREMITITES: No edema. Objective - Vital Signs Vital signs: Vital Signs Temp 99.3 F 11/26/24 06:52 Pulse 76 11/26/24 06:52 Resp 16 11/26/24 06:52 BP 161/81 11/26/24 06:52 Pulse Ox 96 11/26/24 06:52 FiO2 Intake & Output 11/25/24 11/26/24 11/26/24 18:59 06:59 18:59 Intake Total 2040 780 600 Output Total 600 900 Balance 1440 -120 600 Intake: Intake, IV Titration 600 Amount Dextrose 5% in Water 1, 500 000 ml @ 80 mls/hr IV . [id number] ARELI with Sodium Bicarb (1 Meq/ml) 150 ml Rx#:[id number] Piperacillin-Tazobactam 3 100 .375 gm In Sodium Chloride 0.9% 100 ml @ 25 mls/hr IVPB Q8H ARELI Rx#: [id number] Oral 2040 780 Output: Urine 450 400 Stool 150 500 Other: Voiding Method External Catheter External Catheter - Labs CBC & Chem 7: 11/25/24 04:40 11/25/24 04:40 Labs: Abnormal Lab Results - Last 24 Hours (Table) 11/25/24 11/25/24 11/25/24 Range/Units 04:40 04:40 12:08 RBC 2.52 L (4.40-5.60) X 10*6/uL Hgb 7.2 L (13.0-17.0) g/dL Hct 23.8 L (39.6-50.0) % MCHC 30.3 L (32.0-37.0) g/dL RDW 14.6 H (11.5-14.5) % Eosinophils # 0.46 H (0.04-0.35) X 10*3/uL Chloride 113 H (96-109) mmol/L Carbon Dioxide 18.9 L (21.6-31.8) mmol/L Anion Gap 12.10 H (4.00-12.00) mmol/L BUN 28.7 H (9.0-27.0) mg/dL Creatinine 3.4 H (0.6-1.5) mg/dL Est GFR (CKD-EPI) 20 L (>=60) BUN/Creatinine Ratio 8.44 L (12.00-20.00) Ratio POC Glucose (mg/dL) 197 H (70-110) mg/dL 11/25/24 11/26/24 Range/Units 17:09 06:54 RBC (4.40-5.60) X 10*6/uL Hgb (13.0-17.0) g/dL Hct (39.6-50.0) % MCHC (32.0-37.0) g/dL RDW (11.5-14.5) % Eosinophils # (0.04-0.35) X 10*3/uL Chloride (96-109) mmol/L Carbon Dioxide (21.6-31.8) mmol/L Anion Gap (4.00-12.00) mmol/L BUN (9.0-27.0) mg/dL Creatinine (0.6-1.5) mg/dL Est GFR (CKD-EPI) (>=60) BUN/Creatinine Ratio (12.00-20.00) Ratio POC Glucose (mg/dL) 203 H 128 H (70-110) mg/dL Assessment and Plan Plan: Assessment: 1. Acute kidney injury secondary to ATN versus obstructive uropathy. Creatinine 8.37 on admission and down to 3.4 as of yesterday. Mild hydronephrosis noted on the right side on imaging. Not noted on renal CT. Creatinine earlier this month was near 2. Urine eosinophils negative. Serologies negative except serum renal fixation positive for IgA lambda. 2. Right-sided hydronephrosis with cystoscopy and right ureteral stent placement November 03, 2024. Urology following. May need further intervention this admission. 3. Metabolic acidosis secondary to acute kidney injury and IV fluids. On bicarb drip. 4. Anemia. Iron replete. Component of chronic illness. On Aranesp. 5. Diabetes mellitus. 6. Benign hypertension. 7. Uric acid nephrolithiasis. 8. Hypernatremia from lack of oral water intake. Stable. Plan: Maintain bicarb drip for urine alkalinization. Check serum light chains. Continue to monitor renal function and urine output.
[2024-11-26 09:27] LABS: HCT 22.4 % (39.6-50.0); HGB 6.8 g/dL (13.0-17.0); MCH 28.1 pg (27.0-32.0); MCHC 30.4 g/dL (32.0-37.0); MCV 92.6 FL (80.0-97.0); Mean Platelet Volume 10.6 FL (9.5-12.2); NRBC Per 100 WBC 0 X 10*3/uL (0.00-0.01); Platelet Count 239 X 10*3/uL (140-440); RBC 2.42 X 10*6/uL (4.40-5.60); RDW 14.7 % (11.5-14.5); WBC 6.71 X 10*3/uL (4.50-10.00)
[2024-11-26 09:44] LABS: BUN/Creat Ratio 9.31 Ratio (12.00-20.00); Calcium 8.9 mg/dL (8.7-10.3); Carbon Dioxide 21.1 mmol/L (21.6-31.8); Chloride 112 mmol/L (96-109); Glucose 118 mg/dL (70-110); Potassium 4.3 mmol/L (3.5-5.5); Sodium 143 mmol/L (135-145)
[2024-11-26 12:10] LABS: Glucose,Whole Blood 204 mg/dL (70-110)
--- NOTE | 2024-11-26 14:59 | P.PN ---
Subjective Progress Note Date: 11/26/24 Principal diagnosis: Reason for follow-up is UTI Patient is a 64-year-old -Hungarian male with a past medical history significant for diabetes mellitus hypertension hyperlipidemia sleep apnea CVA TIA presenting to the hospital for evaluation of generalized weakness decreased energy has been diagnosed with a UTI urine with Enterococcus and Enterobacter prompted this consultation. On today's evaluation that is 11/26/2024, patient did not have any fever and denies any chills, patient is breathing comfortably on room air, patient with no chest pain or cough patient did not have any abdominal pain nausea vomiting or any loose stools. Patient white count 6.71 creatinine is down to 2.9 Objective - Vital Signs Vital signs: Vital Signs Temp 98.2 F 11/26/24 13:18 Pulse 81 11/26/24 13:18 Resp 16 11/26/24 13:18 BP 121/70 11/26/24 13:18 Pulse Ox 96 11/26/24 13:18 FiO2 Intake & Output 11/25/24 11/26/24 11/26/24 18:59 06:59 18:59 Intake Total 2040 780 1800 Output Total 600 900 297 Balance 1440 -120 1503 Intake: Intake, IV Titration 600 Amount Dextrose 5% in Water 1, 500 000 ml @ 80 mls/hr IV . [id number] ARELI with Sodium Bicarb (1 Meq/ml) 150 ml Rx#:[id number] Piperacillin-Tazobactam 3 100 .375 gm In Sodium Chloride 0.9% 100 ml @ 25 mls/hr IVPB Q8H ARELI Rx#: [id number] Oral 2040 780 1200 Blood Product 0 Unit 0 Output: Urine 450 400 Post Void Residual 297 Stool 150 500 Other: Voiding Method External Catheter External Catheter External Catheter - Exam GENERAL DESCRIPTION: Middle-age male lying in bed in no distress RESPIRATORY SYSTEM: Unlabored breathing , decreased breath sounds at bases HEART: S1 S2 regular rate and rhythm , ABDOMEN: Soft , no tenderness EXTREMITIES: No edema feet - Labs CBC & Chem 7: 11/26/24 03:22 11/26/24 03:22 Labs: Abnormal Lab Results - Last 24 Hours (Table) 11/25/24 11/26/24 11/26/24 Range/Units 17:09 03:22 03:22 RBC 2.42 L (4.40-5.60) X 10*6/uL Hgb 6.8 A* (13.0-17.0) g/dL Hct 22.4 L (39.6-50.0) % MCHC 30.4 L (32.0-37.0) g/dL RDW 14.7 H (11.5-14.5) % Chloride 112 H (96-109) mmol/L Carbon Dioxide 21.1 L (21.6-31.8) mmol/L Creatinine 2.9 H (0.6-1.5) mg/dL Est GFR (CKD-EPI) 24 L (>=60) BUN/Creatinine Ratio 9.31 L (12.00-20.00) Ratio Glucose 118 H (70-110) mg/dL POC Glucose (mg/dL) 203 H (70-110) mg/dL Crossmatch 11/26/24 11/26/24 11/26/24 Range/Units 06:54 10:08 12:08 RBC (4.40-5.60) X 10*6/uL Hgb (13.0-17.0) g/dL Hct (39.6-50.0) % MCHC (32.0-37.0) g/dL RDW (11.5-14.5) % Chloride (96-109) mmol/L Carbon Dioxide (21.6-31.8) mmol/L Creatinine (0.6-1.5) mg/dL Est GFR (CKD-EPI) (>=60) BUN/Creatinine Ratio (12.00-20.00) Ratio Glucose (70-110) mg/dL POC Glucose (mg/dL) 128 H 204 H (70-110) mg/dL Crossmatch See Detail Assessment and Plan (1) UTI (urinary tract infection) due to Enterococcus Current Visit: Yes Status: Acute Code(s): N39.0 - URINARY TRACT INFECTION, SITE NOT SPECIFIED; B95.2 - ENTEROCOCCUS THE CAUSE OF DISEASES CLASSIFIED ELSEWHERE SNOMED Code(s): 468850639334475 Plan: 1patient was hospitalized weakness patient did have a urinary burning concentrated urine significantly positive UA concerning for symptomatic UTI with urine now showing Enterobacter as well as Enterococcus faecalis 2-patient is afebrile white count is normal we will continue Zosyn and transition to oral antibiotic on discharge Dictation was produced using [employer] software. please excuse any grammatical, word or spelling errors. Time with Patient: Less than 30
[2024-11-26] MEDS: HYDROcodone/APAP 5-325MG 1 EACH TAB PO PRN (15:19)
[2024-11-26] MEDS: FUROSEMIDE 10 MG/ML 2 ML VIAL IV ONE (16:55)
[2024-11-26 17:05] LABS: Glucose,Whole Blood 155 mg/dL (70-110)
[2024-11-26 20:09] LABS: Glucose,Whole Blood 160 mg/dL (70-110)
[2024-11-27 06:56] LABS: Glucose,Whole Blood 143 mg/dL (70-110)
--- NOTE | 2024-11-27 11:27 | P.PN ---
Subjective Patient is seen in follow-up for acute kidney injury. Renal function gradually improving. Nonoliguric. Oral intake fair. Denies any active bleeding. Received a unit of blood yesterday. Vital signs are stable. General: No acute distress. HEENT: Head exam is unremarkable. LUNGS: No audible rhonchi or wheezes. HEART: Rate and Rhythm are regular. ABDOMEN: Nontender. EXTREMITITES: No edema. Objective - Vital Signs Vital signs: Vital Signs Temp 98.2 F 11/27/24 07:35 Pulse 73 11/27/24 07:35 Resp 16 11/27/24 07:35 BP 160/96 11/27/24 07:35 Pulse Ox 95 11/27/24 07:35 FiO2 Intake & Output 11/26/24 11/27/24 11/27/24 18:59 06:59 18:59 Intake Total 3589 780 240 Output Total 1897 1325 Balance 1692 -545 240 Intake: Intake, IV Titration 600 Amount Dextrose 5% in Water 1, 500 000 ml @ 80 mls/hr IV . [id number] ARELI with Sodium Bicarb (1 Meq/ml) 150 ml Rx#:[id number] Piperacillin-Tazobactam 3 100 .375 gm In Sodium Chloride 0.9% 100 ml @ 25 mls/hr IVPB Q8H ARELI Rx#: [id number] Oral 2700 780 240 Blood Product 289 Rc Pheresis As-3 Unit 289 [id number] Output: Urine 1300 1125 Post Void Residual 297 Stool 300 Urine/Stool Mix 200 Other: Voiding Method External Catheter External Catheter External Catheter - Labs CBC & Chem 7: 11/26/24 03:22 11/26/24 03:22 Labs: Abnormal Lab Results - Last 24 Hours (Table) 11/26/24 11/26/24 11/26/24 Range/Units 10:08 12:08 17:03 POC Glucose (mg/dL) 204 H 155 H (70-110) mg/dL Crossmatch See Detail 11/26/24 11/27/24 Range/Units 20:05 06:55 POC Glucose (mg/dL) 160 H 143 H (70-110) mg/dL Crossmatch Assessment and Plan Plan: Assessment: 1. Acute kidney injury secondary to ATN versus obstructive uropathy. Creatinine 8.37 on admission and down to 2.9 as of yesterday. Mild hydronephrosis noted on the right side on imaging. Not noted on renal CT. Creatinine earlier this month was near 2. Urine eosinophils negative. Serologies negative except serum renal fixation positive for IgA lambda. 2. Right-sided hydronephrosis with cystoscopy and right ureteral stent placem ent November 03, 2024. Urology following. May need further intervention this admission. 3. Metabolic acidosis secondary to acute kidney injury and IV fluids. On bicarb drip. 4. Anemia. Iron replete. Component of chronic illness. On Aranesp. 5. Diabetes mellitus. 6. Benign hypertension. 7. Uric acid nephrolithiasis. 8. Hypernatremia from lack of oral water intake. Stable. Plan: Maintain bicarb drip for urine alkalinization. Follow-up serum light chains. Continue to monitor renal function and urine output. Morning labs pending.
[2024-11-27 12:06] LABS: Glucose,Whole Blood 148 mg/dL (70-110)
[2024-11-27 12:19] LABS: African American GFR (CKD) 29 (>60 ml/min/1.73 sqM); Anion Gap 7 mmol/L; Blood Urea Nitrogen 27 mg/dL (9-20); Calcium 9.1 mg/dL (8.4-10.2); Carbon Dioxide 30 mmol/L (22-30); Chloride 103 mmol/L (98-107); Glucose 133 mg/dL (74-99); Magnesium 1.5 mg/dL (1.6-2.3); Non-African American GFR(CKD) 25 (>60 ml/min/1.73 sqM); Potassium 3.6 mmol/L (3.5-5.1); Sodium 140 mmol/L (137-145)
--- NOTE | 2024-11-27 13:01 | P.PN ---
Subjective Progress Note Date: 11/27/24 Principal diagnosis: Renal calculi The patient is a 64-year-old white male who underwent right ureteral stent insertion on November 03 to relieve obstruction caused by a right UPJ calculus. The calculi were radiolucent, and he was found to have multiple small bladder calculi which were removed and sent for chemical analysis. As suspected, the calculi were of uric acid composition. He is now admitted with renal failure. Imaging shows resolution of his hydronephrosis. His urine is tea colored. Urine culture shows a UTI (Enterococcus and Enterobacter), for which he is recei ving Zosyn. His serum creatinine level is gradually declining and was 2.64 today. His only discomfort is located in the suprapubic region, associated with micturition. Objective - Vital Signs Vital signs: Vital Signs Temp 98.2 F 11/27/24 07:35 Pulse 73 11/27/24 07:35 Resp 16 11/27/24 07:35 BP 160/96 11/27/24 07:35 Pulse Ox 95 11/27/24 07:35 FiO2 Intake & Output 11/26/24 11/27/24 11/27/24 18:59 06:59 18:59 Intake Total 3589 780 240 Output Total 1897 1325 Balance 1692 -545 240 Intake: Intake, IV Titration 600 Amount Dextrose 5% in Water 1, 500 000 ml @ 80 mls/hr IV . [id number] ARELI with Sodium Bicarb (1 Meq/ml) 150 ml Rx#:[id number] Piperacillin-Tazobactam 3 100 .375 gm In Sodium Chloride 0.9% 100 ml @ 25 mls/hr IVPB Q8H ARELI Rx#: [id number] Oral 2700 780 240 Blood Product 289 Rc Pheresis As-3 Unit 289 [id number] Output: Urine 1300 1125 Post Void Residual 297 Stool 300 Urine/Stool Mix 200 Other: Voiding Method External Catheter External Catheter - Constitutional General appearance: Present: average body habitus, cooperative, no acute distress - Psychiatric Psychiatric: Present: A&O x's 3 - Labs CBC & Chem 7: 11/26/24 03:22 11/27/24 11:57 Labs: Abnormal Lab Results - Last 24 Hours (Table) 11/26/24 11/26/24 11/26/24 Range/Units 03:22 03:22 10:08 RBC 2.42 L (4.40-5.60) X 10*6/uL Hgb 6.8 A* (13.0-17.0) g/dL Hct 22.4 L (39.6-50.0) % MCHC 30.4 L (32.0-37.0) g/dL RDW 14.7 H (11.5-14.5) % Chloride 112 H (96-109) mmol/L Carbon Dioxide 21.1 L (21.6-31.8) mmol/L Creatinine 2.9 H (0.6-1.5) mg/dL Est GFR (CKD-EPI) 24 L (>=60) BUN/Creatinine Ratio 9.31 L (12.00-20.00) Ratio Glucose 118 H (70-110) mg/dL POC Glucose (mg/dL) (70-110) mg/dL Crossmatch See Detail 11/26/24 11/26/24 11/26/24 Range/Units 12:08 17:03 20:05 RBC (4.40-5.60) X 10*6/uL Hgb (13.0-17.0) g/dL Hct (39.6-50.0) % MCHC (32.0-37.0) g/dL RDW (11.5-14.5) % Chloride (96-109) mmol/L Carbon Dioxide (21.6-31.8) mmol/L Creatinine (0.6-1.5) mg/dL Est GFR (CKD-EPI) (>=60) BUN/Creatinine Ratio (12.00-20.00) Ratio Glucose (70-110) mg/dL POC Glucose (mg/dL) 204 H 155 H 160 H (70-110) mg/dL Crossmatch 11/27/24 Range/Units 06:55 RBC (4.40-5.60) X 10*6/uL Hgb (13.0-17.0) g/dL Hct (39.6-50.0) % MCHC (32.0-37.0) g/dL RDW (11.5-14.5) % Chloride (96-109) mmol/L Carbon Dioxide (21.6-31.8) mmol/L Creatinine (0.6-1.5) mg/dL Est GFR (CKD-EPI) (>=60) BUN/Creatinine Ratio (12.00-20.00) Ratio Glucose (70-110) mg/dL POC Glucose (mg/dL) 143 H (70-110) mg/dL Crossmatch Assessment and Plan (1) Urinary tract infection Current Visit: No Status: Acute Code(s): N39.0 - URINARY TRACT INFECTION, SITE NOT SPECIFIED SNOMED Code(s): 76882784 (2) Renal calculi Current Visit: No Status: Acute Code(s): N20.0 - CALCULUS OF KIDNEY SNOMED Code(s): 50443025 Plan: Continue antibiotics. The patient is being treated with sodium bicarbonate, and I have ordered urinalysis to check his urine pH. He would benefit from a urine pH of 7, as this would result in dissolution of the uric acid calculi. I did discuss with the patient and his that I could perform ureteroscopy to reduce the size of the calculi, which would make urinary alkalinization more effective. I have also discussed this with Dr. Spencer, and this will be strongly considered if his renal function fails to continue to improve.
[2024-11-27 13:25] LABS: Basophils % (A) 1 %; Eosinophils # (A) 0.5 k/uL (0-0.7); Eosinophils % (A) 8 %; HCT 26.5 % (39.0-53.0); HGB 8.3 gm/dL (13.0-17.5); Lymphocytes % (A) 18 %; MCH 28.4 pg (25.0-35.0); MCHC 31.3 g/dL (31.0-37.0); MCV 90.7 fL (80.0-100.0); Mean Platelet Volume 8.4; Monocytes # (A) 0.3 k/uL (0-1.0); Monocytes % (A) 5 %; Neutrophils % (A) 68 %; Platelet Count 237 k/uL (150-450); RBC 2.92 m/uL (4.30-5.90); RDW 15.5 % (11.5-15.5); WBC 5.9 k/uL (3.8-10.6)
[2024-11-27] MEDS: POTASSIUM CHLORIDE ER 20 MEQ TAB.ER PO STA (13:40)
[2024-11-27] MEDS: MAGNESIUM SULFATE-D5W PMX 1 GM in DEXTROSE/WATER 1 100ML.BAG IVPB SCH (13:41)
[2024-11-27] MEDS: SODIUM CHLORIDE 0.9% 1,000 ML IV SCH (13:41)
--- NOTE | 2024-11-27 14:16 | P.PN ---
Subjective Progress Note Date: 11/26/24 Principal diagnosis: anemia, AkA,Renal calculi recently, passed renal calculi, developed uti , GFR slowly improving, vss pt is afebrile pt is Alert and oriented x 3 Objective - Vital Signs Vital signs: Vital Signs Temp 98.6 F 11/27/24 11:40 Pulse 67 11/27/24 11:40 Resp 16 11/27/24 11:40 BP 156/78 11/27/24 11:40 Pulse Ox 97 11/27/24 11:40 FiO2 Intake & Output 11/26/24 11/27/24 11/27/24 18:59 06:59 18:59 Intake Total 3589 780 1200 Output Total 1897 1325 Balance 1692 -545 1200 Intake: Intake, IV Titration 600 Amount Dextrose 5% in Water 1, 500 000 ml @ 80 mls/hr IV . [id number] ARELI with Sodium Bicarb (1 Meq/ml) 150 ml Rx#:[id number] Piperacillin-Tazobactam 3 100 .375 gm In Sodium Chloride 0.9% 100 ml @ 25 mls/hr IVPB Q8H ARELI Rx#: [id number] Oral 2700 780 1200 Blood Product 289 Rc Pheresis As-3 Unit 289 [id number] Output: Urine 1300 1125 Post Void Residual 297 Stool 300 Urine/Stool Mix 200 Other: Voiding Method External Catheter External Catheter External Catheter - Exam General: [Patient awake, alert and oriented times 3. Patient in no acute distress.] HEENT: [PERRL. EOMI. No pharyngeal erythema or exudate.] Neck: [No adenopathy.] Cardiac: [Heart regular in rate and rhythm. No S3. No S4. No clicks, rubs. No murmur.] Lungs: [Clear to auscultation bilaterally.] Abdomen: [No mass. No organomegaly. Bowel sounds presnt and normoactive in all 4 quadrants.] Extremes: [No edema no cyanosis no claudication normal pulses, rt sided weakness : [] Musculoskeletal: [No joint erythema, edema or tenderness.] Skin: [No rash.] Neurologic: [No lateralizing deficits. CN II - XII grossly intact.] Lymphatic: [No adenopathy.] - Labs CBC & Chem 7: 11/27/24 11:57 11/27/24 11:57 Labs: Abnormal Lab Results - Last 24 Hours (Table) 11/26/24 11/26/24 11/26/24 Range/Units 10:08 17:03 20:05 RBC (4.30-5.90) m/uL Hgb (13.0-17.5) gm/dL Hct (39.0-53.0) % BUN (9-20) mg/dL Creatinine (0.66-1.25) mg/dL Glucose (74-99) mg/dL POC Glucose (mg/dL) 155 H 160 H (70-110) mg/dL Magnesium (1.6-2.3) mg/dL Crossmatch See Detail 11/27/24 11/27/24 11/27/24 Range/Units 06:55 11:57 11:57 RBC 2.92 L (4.30-5.90) m/uL Hgb 8.3 L (13.0-17.5) gm/dL Hct 26.5 L (39.0-53.0) % BUN 27 H (9-20) mg/dL Creatinine 2.64 H (0.66-1.25) mg/dL Glucose 133 H (74-99) mg/dL POC Glucose (mg/dL) 143 H (70-110) mg/dL Magnesium 1.5 L (1.6-2.3) mg/dL Crossmatch 11/27/24 Range/Units 12:04 RBC (4.30-5.90) m/uL Hgb (13.0-17.5) gm/dL Hct (39.0-53.0) % BUN (9-20) mg/dL Creatinine (0.66-1.25) mg/dL Glucose (74-99) mg/dL POC Glucose (mg/dL) 148 H (70-110) mg/dL Magnesium (1.6-2.3) mg/dL Crossmatch Assessment and Plan (1) Acute renal failure Narrative/Plan: improving Current Visit: Yes Status: Acute Code(s): N17.9 - ACUTE KIDNEY FAILURE, UNSPECIFIED SNOMED Code(s): 27683980 (2) UTI (urinary tract infection) due to Enterococcus Narrative/Plan: resolving Current Visit: Yes Status: Acute Code(s): N39.0 - URINARY TRACT INFECTION, SITE NOT SPECIFIED; B95.2 - ENTEROCOCCUS THE CAUSE OF DISEASES CLASSIFIED ELSEWHERE SNOMED Code(s): 128351741921139 (3) LURDES (acute kidney injury) Narrative/Plan: resolving Current Visit: No Status: Acute Code(s): N17.9 - ACUTE KIDNEY FAILURE, UNSPECIFIED SNOMED Code(s): 34989580 (4) AMS (altered mental status) Narrative/Plan: resolving Current Visit: No Status: Acute Code(s): R41.82 - ALTERED MENTAL STATUS, UNSPECIFIED SNOMED Code(s): 212070924 (5) Abdominal pain Narrative/Plan: resolved Current Visit: No Status: Acute Code(s): R10.9 - UNSPECIFIED ABDOMINAL PAIN SNOMED Code(s): 60250516 (6) Calculus of ureter Narrative/Plan: resolved Current Visit: No Status: Acute Code(s): N20.1 - CALCULUS OF URETER SNOMED Code(s): 72641767 (7) Cerebrovascular accident (CVA) Narrative/Plan: rt sided weakness Current Visit: No Status: Acute Code(s): I63.9 - CEREBRAL INFARCTION, UNSPECIFIED SNOMED Code(s): 726326988 (8) Dehydration Narrative/Plan: resolving Current Visit: No Status: Acute Code(s): E86.0 - DEHYDRATION SNOMED Code(s): 76993547 Plan: continue current care Time with Patient: Greater than 30
--- NOTE | 2024-11-27 14:20 | P.PN ---
Subjective Progress Note Date: 11/27/24 Principal diagnosis: Reason for follow-up is UTI Patient is a 64-year-old -[place] male with a past medical history significant for diabetes mellitus hypertension hyperlipidemia sleep apnea CVA TIA presenting to the hospital for evaluation of generalized weakness decreased energy has been diagnosed with a UTI urine with Enterococcus and Enterobacter prompted this consultation. On today's evaluation that is 11/27/2024, Patient is afebrile patient is currently on room air and denies having any shortness of breath, the patient denies any chest pain or cough, the patient denies any nausea vomiting did not have any abdominal pain and no diarrhea mention feeling better still urine is dark. Patient white count is 5.8, creatinine is 2.64 Objective - Vital Signs Vital signs: Vital Signs Temp 98.6 F 11/27/24 11:40 Pulse 67 11/27/24 11:40 Resp 16 11/27/24 11:40 BP 156/78 11/27/24 11:40 Pulse Ox 97 11/27/24 11:40 FiO2 Intake & Output 11/26/24 11/27/24 11/27/24 18:59 06:59 18:59 Intake Total 3589 780 2280 Output Total 1897 1325 1100 Balance 1692 -545 1180 Intake: Intake, IV Titration 600 Amount Dextrose 5% in Water 1, 500 000 ml @ 80 mls/hr IV . [id number] ARELI with Sodium Bicarb (1 Meq/ml) 150 ml Rx#:[id number] Piperacillin-Tazobactam 3 100 .375 gm In Sodium Chloride 0.9% 100 ml @ 25 mls/hr IVPB Q8H ARELI Rx#: [id number] Oral 2700 780 2280 Blood Product 289 Rc Pheresis As-3 Unit 289 [id number] Output: Urine 1300 1125 800 Post Void Residual 297 Stool 300 300 Urine/Stool Mix 200 Other: Voiding Method External Catheter External Catheter External Catheter - Exam GENERAL DESCRIPTION: Middle-age male lying in bed in no distress RESPIRATORY SYSTEM: Unlabored breathing , decreased breath sounds at bases HEART: S1 S2 regular rate and rhythm , ABDOMEN: Soft , no tenderness EXTREMITIES: No edema feet - Labs CBC & Chem 7: 11/27/24 11:57 11/27/24 11:57 Labs: Abnormal Lab Results - Last 24 Hours (Table) 04/01/1511/26/24 11/26/24 Range/Units 10:08 17:03 20:05 RBC (4.30-5.90) m/uL Hgb (13.0-17.5) gm/dL Hct (39.0-53.0) % BUN (9-20) mg/dL Creatinine (0.66-1.25) mg/dL Glucose (74-99) mg/dL POC Glucose (mg/dL) 155 H 160 H (70-110) mg/dL Magnesium (1.6-2.3) mg/dL Crossmatch See Detail 11/27/24 11/27/24 11/27/24 Range/Units 06:55 11:57 11:57 RBC 2.92 L (4.30-5.90) m/uL Hgb 8.3 L (13.0-17.5) gm/dL Hct 26.5 L (39.0-53.0) % BUN 27 H (9-20) mg/dL Creatinine 2.64 H (0.66-1.25) mg/dL Glucose 133 H (74-99) mg/dL POC Glucose (mg/dL) 143 H (70-110) mg/dL Magnesium 1.5 L (1.6-2.3) mg/dL Crossmatch 11/27/24 Range/Units 12:04 RBC (4.30-5.90) m/uL Hgb (13.0-17.5) gm/dL Hct (39.0-53.0) % BUN (9-20) mg/dL Creatinine (0.66-1.25) mg/dL Glucose (74-99) mg/dL POC Glucose (mg/dL) 148 H (70-110) mg/dL Magnesium (1.6-2.3) mg/dL Crossmatch Assessment and Plan (1) UTI (urinary tract infection) due to Enterococcus Current Visit: Yes Status: Acute Code(s): N39.0 - URINARY TRACT INFECTION, SITE NOT SPECIFIED; B95.2 - ENTEROCOCCUS THE CAUSE OF DISEASES CLASSIFIED ELSEWHERE SNOMED Code(s): 602388151091866 Plan: 1patient was hospitalized weakness patient did have a urinary burning concentrated urine significantly positive UA concerning for symptomatic UTI with urine now showing Enterobacter as well as Enterococcus faecalis 2-patient is afebrile white count is normal we will continue Zosyn and will transition to oral Cipro and Augmentin for about a week on discharge Dictation was produced using [employer] software. please excuse any grammatical, word or spelling errors.
--- NOTE | 2024-11-27 14:22 | P.PN ---
Subjective Progress Note Date: 11/27/24 Principal diagnosis: anemia, AkA,Renal calculi recently, passed renal calculi, developed uti , GFR slowly improving, vss pt is afebrile pt is Alert and oriented x 3, cva resolving Objective - Vital Signs Vital signs: Vital Signs Temp 98.6 F 11/27/24 11:40 Pulse 67 11/27/24 11:40 Resp 16 11/27/24 11:40 BP 156/78 11/27/24 11:40 Pulse Ox 97 11/27/24 11:40 FiO2 Intake & Output 11/26/24 11/27/24 11/27/24 18:59 06:59 18:59 Intake Total 3589 780 2280 Output Total 1897 1325 1100 Balance 1692 -545 1180 Intake: Intake, IV Titration 600 Amount Dextrose 5% in Water 1, 500 000 ml @ 80 mls/hr IV . [id number] ARELI with Sodium Bicarb (1 Meq/ml) 150 ml Rx#:[id number] Piperacillin-Tazobactam 3 100 .375 gm In Sodium Chloride 0.9% 100 ml @ 25 mls/hr IVPB Q8H ARELI Rx#: [id number] Oral 2700 780 2280 Blood Product 289 Rc Pheresis As-3 Unit 289 [id number] Output: Urine 1300 1125 800 Post Void Residual 297 Stool 300 300 Urine/Stool Mix 200 Other: Voiding Method External Catheter External Catheter External Catheter - Exam General: [Patient awake, alert and oriented times 3. Patient in no acute distress.] HEENT: [PERRL. EOMI. No pharyngeal erythema or exudate.] Neck: [No adenopathy.] Cardiac: [Heart regular in rate and rhythm. No S3. No S4. No clicks, rubs. No murmur.] Lungs: [Clear to auscultation bilaterally.] Abdomen: [No mass. No organomegaly. Bowel sounds presnt and normoactive in all 4 quadrants.] Extremes: [No edema no cyanosis no claudication normal pulses, rt sided weakness : male genatalia Musculoskeletal: [No joint erythema, edema or tenderness.] Skin: [No rash.] Neurologic: [No lateralizing deficits. CN II - XII grossly intact.] Lymphatic: [No adenopathy.] - Labs CBC & Chem 7: 11/27/24 11:57 11/27/24 11:57 Labs: Abnormal Lab Results - Last 24 Hours (Table) 11/26/24 11/26/24 11/26/24 Range/Units 10:08 17:03 20:05 RBC (4.30-5.90) m/uL Hgb (13.0-17.5) gm/dL Hct (39.0-53.0) % BUN (9-20) mg/dL Creatinine (0.66-1.25) mg/dL Glucose (74-99) mg/dL POC Glucose (mg/dL) 155 H 160 H (70-110) mg/dL Magnesium (1.6-2.3) mg/dL Crossmatch See Detail 11/27/24 11/27/24 11/27/24 Range/Units 06:55 11:57 11:57 RBC 2.92 L (4.30-5.90) m/uL Hgb 8.3 L (13.0-17.5) gm/dL Hct 26.5 L (39.0-53.0) % BUN 27 H (9-20) mg/dL Creatinine 2.64 H (0.66-1.25) mg/dL Glucose 133 H (74-99) mg/dL POC Glucose (mg/dL) 143 H (70-110) mg/dL Magnesium 1.5 L (1.6-2.3) mg/dL Crossmatch 11/27/24 Range/Units 12:04 RBC (4.30-5.90) m/uL Hgb (13.0-17.5) gm/dL Hct (39.0-53.0) % BUN (9-20) mg/dL Creatinine (0.66-1.25) mg/dL Glucose (74-99) mg/dL POC Glucose (mg/dL) 148 H (70-110) mg/dL Magnesium (1.6-2.3) mg/dL Crossmatch Assessment and Plan (1) Acute renal failure Current Visit: Yes Status: Acute Code(s): N17.9 - ACUTE KIDNEY FAILURE, UNSPECIFIED SNOMED Code(s): 18283990 (2) UTI (urinary tract infection) due to Enterococcus Current Visit: Yes Status: Acute Code(s): N39.0 - URINARY TRACT INFECTION, SITE NOT SPECIFIED; B95.2 - ENTEROCOCCUS THE CAUSE OF DISEASES CLASSIFIED ELSEWHERE SNOMED Code(s): 683092995870653 (3) LURDES (acute kidney injury) Current Visit: No Status: Acute Code(s): N17.9 - ACUTE KIDNEY FAILURE, UNSPECIFIED SNOMED Code(s): 37282323 (4) AMS (altered mental status) Current Visit: No Status: Acute Code(s): R41.82 - ALTERED MENTAL STATUS, UNSPECIFIED SNOMED Code(s): 383373727 (5) Abdominal pain Current Visit: No Status: Acute Code(s): R10.9 - UNSPECIFIED ABDOMINAL PAIN SNOMED Code(s): 94634435 (6) Calculus of ureter Current Visit: No Status: Acute Code(s): N20.1 - CALCULUS OF URETER SNOMED Code(s): 60112097 (7) Cerebrovascular accident (CVA) Current Visit: No Status: Acute Code(s): I63.9 - CEREBRAL INFARCTION, UNSPECIFIED SNOMED Code(s): 809707412 (8) Dehydration Current Visit: No Status: Acute Code(s): E86.0 - DEHYDRATION SNOMED Code(s): 61352304 Plan: continue current care Time with Patient: Greater than 30
[2024-11-27 16:41] LABS: Appearance,Urine Clear (Clear); Bilirubin,Urine Negative (Negative); Blood,Urine Large (Negative); Color,Urine Colorless; Glucose,Urine (UA) Negative (Negative); Ketones,Urine Negative (Negative); Leukocyte Esterase,Urine Moderate (Negative); Nitrite,Urine Negative (Negative); Protein,Urine Trace (Negative); RBC,Urine 122 /hpf (0-5); Specific Gravity,Urine 1.008 (1.001-1.035); Squamous Epithelial Cell,Urine <1 /hpf (0-4); Urobilinogen,Urine <2.0 mg/dL (<2.0); WBC,Urine 6 /hpf (0-5)
[2024-11-27 16:54] LABS: Glucose,Whole Blood 150 mg/dL (70-110)
[2024-11-27] MEDS: CALCIUM CARBONATE 500 MG CHEWABLE PO PRN (18:12)
[2024-11-27 20:29] LABS: Glucose,Whole Blood 112 mg/dL (70-110)
[2024-11-28 05:15] LABS: Basophils % (A) 0 %; Eosinophils # (A) 0.5 k/uL (0-0.7); Eosinophils % (A) 7 %; HCT 26.7 % (39.0-53.0); HGB 8.7 gm/dL (13.0-17.5); Lymphocytes # (A) 1.3 k/uL (1.0-4.8); Lymphocytes % (A) 16 %; MCH 29.4 pg (25.0-35.0); MCHC 32.7 g/dL (31.0-37.0); Mean Platelet Volume 8.3; Monocytes # (A) 0.6 k/uL (0-1.0); Monocytes % (A) 7 %; Neutrophils # (A) 5.8 k/uL (1.3-7.7); Neutrophils % (A) 70 %; Platelet Count 257 k/uL (150-450); RBC 2.96 m/uL (4.30-5.90); RDW 15.4 % (11.5-15.5); WBC 8.4 k/uL (3.8-10.6)
[2024-11-28 05:30] LABS: African American GFR (CKD) 30 (>60 ml/min/1.73 sqM); Anion Gap 6 mmol/L; Blood Urea Nitrogen 22 mg/dL (9-20); Calcium 9.1 mg/dL (8.4-10.2); Carbon Dioxide 25 mmol/L (22-30); Chloride 108 mmol/L (98-107); Glucose 113 mg/dL (74-99); Non-African American GFR(CKD) 26 (>60 ml/min/1.73 sqM); Potassium 3.9 mmol/L (3.5-5.1); Sodium 139 mmol/L (137-145)
[2024-11-28 07:02] LABS: RBC Morphology Normal
[2024-11-28 07:06] LABS: Glucose,Whole Blood 113 mg/dL (70-110)
[2024-11-28 10:16] LABS: Free Kappa Lt Chain Qnt, Serum 2.96 mg/dL (0.33-1.94); Free Lambda Lt Chain Qnt, Seru 3.09 mg/dL (0.57-2.63)
--- NOTE | 2024-11-28 10:48 | P.PN ---
Subjective Patient is seen in follow-up for acute kidney injury. Renal function gradually improving. Nonoliguric. Oral intake fair. Denies any active bleeding. On normal saline. Vital signs are stable. General: No acute distress. HEENT: Head exam is unremarkable. LUNGS: No audible rhonchi or wheezes. HEART: Rate and Rhythm are regular. ABDOMEN: Nontender. EXTREMITITES: No edema. Objective - Vital Signs Vital signs: Vital Signs Temp 98.4 F 11/28/24 07:19 Pulse 63 11/28/24 07:19 Resp 17 11/28/24 07:19 BP 139/81 11/28/24 07:19 Pulse Ox 96 11/28/24 07:19 FiO2 Intake & Output 11/27/24 11/28/24 11/28/24 18:59 06:59 18:59 Intake Total 2280 590 Output Total 1500 1400 Balance 780 -810 Intake: Oral 2280 590 Output: Urine 1200 900 Stool 300 500 Other: Voiding Method External Catheter External Catheter External Catheter - Labs CBC & Chem 7: 11/28/24 04:09 11/28/24 04:09 Labs: Abnormal Lab Results - Last 24 Hours (Table) 11/26/24 11/27/24 11/27/24 Range/Units 03:22 11:57 11:57 RBC 2.92 L (4.30-5.90) m/uL Hgb 8.3 L (13.0-17.5) gm/dL Hct 26.5 L (39.0-53.0) % Chloride (98-107) mmol/L BUN 27 H (9-20) mg/dL Creatinine 2.64 H (0.66-1.25) mg/dL Glucose 133 H (74-99) mg/dL POC Glucose (mg/dL) (70-110) mg/dL Magnesium 1.5 L (1.6-2.3) mg/dL Urine Protein (Negative) Urine Blood (Negative) Ur Leukocyte Esterase (Negative) Urine RBC (0-5) /hpf Urine WBC (0-5) /hpf Free [facility] LC, Quant 2.96 H (0.33-1.94) mg/dL Free Lambda LC, Quant 3.09 H (0.57-2.63) mg/dL 11/27/24 11/27/24 11/27/24 Range/Units 12:04 14:15 16:53 RBC (4.30-5.90) m/uL Hgb (13.0-17.5) gm/dL Hct (39.0-53.0) % Chloride (98-107) mmol/L BUN (9-20) mg/dL Creatinine (0.66-1.25) mg/dL Glucose (74-99) mg/dL POC Glucose (mg/dL) 148 H 150 H (70-110) mg/dL Magnesium (1.6-2.3) mg/dL Urine Protein Trace H (Negative) Urine Blood Large H (Negative) Ur Leukocyte Esterase Moderate H (Negative) Urine RBC 122 H (0-5) /hpf Urine WBC 6 H (0-5) /hpf Free [facility] LC, Quant (0.33-1.94) mg/dL Free Lambda LC, Quant (0.57-2.63) mg/dL 11/27/24 11/28/24 11/28/24 Range/Units 20:28 04:09 04:09 RBC 2.96 L (4.30-5.90) m/uL Hgb 8.7 L (13.0-17.5) gm/dL Hct 26.7 L (39.0-53.0) % Chloride 108 H (98-107) mmol/L BUN 22 H (9-20) mg/dL Creatinine 2.56 H (0.66-1.25) mg/dL Glucose 113 H (74-99) mg/dL POC Glucose (mg/dL) 112 H (70-110) mg/dL Magnesium (1.6-2.3) mg/dL Urine Protein (Negative) Urine Blood (Negative) Ur Leukocyte Esterase (Negative) Urine RBC (0-5) /hpf Urine WBC (0-5) /hpf Free [facility] LC, Quant (0.33-1.94) mg/dL Free Lambda LC, Quant (0.57-2.63) mg/dL 11/28/24 Range/Units 07:04 RBC (4.30-5.90) m/uL Hgb (13.0-17.5) gm/dL Hct (39.0-53.0) % Chloride (98-107) mmol/L BUN (9-20) mg/dL Creatinine (0.66-1.25) mg/dL Glucose (74-99) mg/dL POC Glucose (mg/dL) 113 H (70-110) mg/dL Magnesium (1.6-2.3) mg/dL Urine Protein (Negative) Urine Blood (Negative) Ur Leukocyte Esterase (Negative) Urine RBC (0-5) /hpf Urine WBC (0-5) /hpf Free [facility] LC, Quant (0.33-1.94) mg/dL Free Lambda LC, Quant (0.57-2.63) mg/dL Assessment and Plan Plan: Assessment: 1. Acute kidney injury secondary to ATN versus obstructive uropathy. Creatinine 8.37 on admission and down to 2.9 as of yesterday. Mild hydronephrosis noted on the right side on imaging. Not noted on renal CT. Creatinine earlier this month was near 2. Urine eosinophils negative. Serologies negative except serum renal fixation positive for IgA lambda. [place] and lambda light chains minimally elevated. 2. Right-sided hydronephrosis with cystoscopy and right ureteral stent placement November 03, 2024. Urology following. May need further intervention this admission. 3. Metabolic acidosis secondary to acute kidney injury and IV fluids. Status post bicarb drip. Improved. On oral bicarb. 4. Anemia. Iron replete. Component of chronic illness. On Aranesp. 5. Diabetes mellitus. 6. Benign hypertension. Stable. 7. Uric acid nephrolithiasis. 8. Hypernatremia from lack of oral water intake. Resolved. Plan: Maintain normal saline. Maintain oral bicarb. Continue to monitor renal function and urine output. Avoid nephrotoxins.
[2024-11-28 12:10] LABS: Glucose,Whole Blood 144 mg/dL (70-110)
--- NOTE | 2024-11-28 12:33 | P.PN ---
Subjective Progress Note Date: 11/28/24 Principal diagnosis: Reason for follow-up is UTI Patient is a 64-year-old -[place] male with a past medical history significant for diabetes mellitus hypertension hyperlipidemia sleep apnea CVA TIA presenting to the hospital for evaluation of generalized weakness decreased energy has been diagnosed with a UTI urine with Enterococcus and Enterobacter prompted this consultation. On today's evaluation that is 11/28/2024, patient has been afebrile, patient is breathing comfortably and is currently on room air, patient denies having any chest pain and cough, patient denies nausea vomiting or diarrhea did have some discomfort with defecation. Patient white count is 8.4, creatinine is 2.56 Objective - Vital Signs Vital signs: Vital Signs Temp 98.4 F 11/28/24 07:19 Pulse 63 11/28/24 07:19 Resp 17 11/28/24 07:19 BP 139/81 11/28/24 07:19 Pulse Ox 96 11/28/24 07:19 FiO2 Intake & Output 11/27/24 11/28/24 11/28/24 18:59 06:59 18:59 Intake Total 2280 590 Output Total 1500 1400 Balance 780 -810 Intake: Oral 2280 590 Output: Urine 1200 900 Stool 300 500 Other: Voiding Method External Catheter External Catheter - Exam GENERAL DESCRIPTION: Middle-age male lying in bed in no distress RESPIRATORY SYSTEM: Unlabored breathing , decreased breath sounds at bases HEART: S1 S2 regular rate and rhythm , ABDOMEN: Soft , no tenderness EXTREMITIES: No edema feet - Labs CBC & Chem 7: 11/28/24 04:09 11/28/24 04:09 Labs: Abnormal Lab Results - Last 24 Hours (Table) 11/27/24 11/27/24 11/27/24 Range/Units 11:57 11:57 12:04 RBC 2.92 L (4.30-5.90) m/uL Hgb 8.3 L (13.0-17.5) gm/dL Hct 26.5 L (39.0-53.0) % Chloride (98-107) mmol/L BUN 27 H (9-20) mg/dL Creatinine 2.64 H (0.66-1.25) mg/dL Glucose 133 H (74-99) mg/dL POC Glucose (mg/dL) 148 H (70-110) mg/dL Magnesium 1.5 L (1.6-2.3) mg/dL Urine Protein (Negative) Urine Blood (Negative) Ur Leukocyte Esterase (Negative) Urine RBC (0-5) /hpf Urine WBC (0-5) /hpf 11/27/24 11/27/24 11/27/24 Range/Units 14:15 16:53 20:28 RBC (4.30-5.90) m/uL Hgb (13.0-17.5) gm/dL Hct (39.0-53.0) % Chloride (98-107) mmol/L BUN (9-20) mg/dL Creatinine (0.66-1.25) mg/dL Glucose (74-99) mg/dL POC Glucose (mg/dL) 150 H 112 H (70-110) mg/dL Magnesium (1.6-2.3) mg/dL Urine Protein Trace H (Negative) Urine Blood Large H (Negative) Ur Leukocyte Esterase Moderate H (Negative) Urine RBC 122 H (0-5) /hpf Urine WBC 6 H (0-5) /hpf 11/28/24 11/28/24 11/28/24 Range/Units 04:09 04:09 07:04 RBC 2.96 L (4.30-5.90) m/uL Hgb 8.7 L (13.0-17.5) gm/dL Hct 26.7 L (39.0-53.0) % Chloride 108 H (98-107) mmol/L BUN 22 H (9-20) mg/dL Creatinine 2.56 H (0.66-1.25) mg/dL Glucose 113 H (74-99) mg/dL POC Glucose (mg/dL) 113 H (70-110) mg/dL Magnesium (1.6-2.3) mg/dL Urine Protein (Negative) Urine Blood (Negative) Ur Leukocyte Esterase (Negative) Urine RBC (0-5) /hpf Urine WBC (0-5) /hpf Assessment and Plan (1) UTI (urinary tract infection) due to Enterococcus Current Visit: Yes Status: Acute Code(s): N39.0 - URINARY TRACT INFECTION, SITE NOT SPECIFIED; B95.2 - ENTEROCOCCUS THE CAUSE OF DISEASES CLASSIFIED ELSEWHERE SNOMED Code(s): 504199088222276 Plan: 1patient was hospitalized weakness patient did have a urinary burning concentrated urine significantly positive UA concerning for symptomatic UTI with urine now showing Enterobacter as well as Enterococcus faecalis 2-patient is afebrile white count is normal currently being treated with Zosyn to continue while inpatient question concern answered Dictation was produced using [employer] dictation software. please excuse any grammatical, word or spelling errors. Time with Patient: Less than 30
[2024-11-28 13:07] VITALS: BP 143/83; PULSE 62; RESP 18; TEMP 98
--- NOTE | 2024-11-28 13:50 | P.DS ---
Providers Date of admission: 11/15/24 21:31 Expected date of discharge: 11/28/24 Attending physician: Андрей Perez Consults: 11/15/24 20:49 Consult Physician Routine Consulting Provider: Jose Jin Consult Reason/Comments: acute renal failure Do you want consulting provider notified?: Yes, Notify in am Consult Physician Routine Consulting Provider: Doe Ring Consult Reason/Comments: nephrolithiasis Do you want consulting provider notified?: Yes, Notify in am 11/17/24 09:37 Consult Physician Routine Consulting Provider: Javi Hansen Consult Reason/Comments: Left hand numbness, lower lip numb, enceph Do you want consulting provider notified?: Yes 11/21/24 09:45 Consult Physician Routine Consulting Provider: Shruti Mcadams Consult Reason/Comments: uti , renal failure,enterobacter,faecalis Do you want consulting provider notified?: Yes Primary care physician: [facility] Course: Final Diagnoses: Acute renal failure, in a patient with poor appetite, etiology unclear. Recent admission with right hydronephrosis secondary to right ureteral calculus, right renal calculi, underwent cystoscopy with removal of bladder calculi, right retrograde pyelogram and right ureteral stent insertion on 11/03/2024 and discharged home on 11/04/2024. Ultrasound reporting mild right sided hydronephrosis. Renal CT reporting placement of right ureteral stent with resolution of right hydronephrosis, resolution of 2 large right renal calcifications 1 in the UPJ and the other in the lower pole of the right kidney, persistent bilateral nonobstructing renal calcifications. Acute UTI with Enterobacter clocae, Enterococcus faecalis Left hand and lower lip numbness, probably related to the above along with electrolyte imbalance as per neurology. Left hand and left lip numbness resolved. Lactic acidosis, resolved Metabolic acidosis, status post bicarb drip. Bicarb drip resumed on 11/25/2024. Anemia, multifactorial , secondary to all the above ,aranesp added to med regimine. Sleep apnea uses CPAP Hypertension Hyperlipidemia Diabetes mellitus History of CVA, TIA Prior nicotine dependence Hospital course:This is a 64-year-old gentleman with past medical history significant for recent inpatient admission with right hydronephrosis secondary to right ureteral calculus, right renal calculi- underwent cystoscopy with removal of bladder calculi, right retrograde pyelogram and right ureteral stent insertion on 11/03/2024 and discharged home on 11/04/2024. Past medical history also significant for CVA/TIA ,colectomy, diabetes mellitus, A-fib, hypertension, hyperlipidemia, sleep apnea uses CPAP, former nicotine dependence and multiple other medical issues. at bedside,reports they had gone to [place] post discharge and patient appeared a" little off "there. Reports decreased appetite ,complained of intermittent right flank pain. Denies hematuria. Denies vomiting. Denies diarrhea. Over the last 3 days patient's confusion, muscle strength /weakness worsened and patient was brought into the ER.on admission creatinine 8.37, BUN 70, bicarb 10 .lactic acid 2.4, phosphorus 6.8 .hemoglobin 9.5, platelets 323, INR 1 afebrile, normal WBC .urine reported greater than 182 RBCs and WBCs.repeat labs and urine culture pending. Renal ultrasound reported mild right hydronephrosis, bilateral nonobstructing renal calculi, right renal cyst, multiple probable bladder stones, cholelithiasis. Minimal post void residuals reported no greater than 75 mLs. Urology and nephrology consults in place.IV fluid hydration/bicarb drip initiated. 11/17/2024 this morning,patient reports he still does not feel quite right and reports his entire lower lip and left hand are numb, timeframe/onset unclear- vague historian. Moving left hand and digits. consumed 50% of dinner last night, 25% of breakfast this morning. maintained on bicarb drip ,renal function slowly improving, bicarb increased to 19.7, BUN 64.2, creatinine 7. Bladder scan re porting negative urinary retention .blood sugars controlled, hemoglobin A1c 7. Iron studies noted.Aranesp added to med regimine per nephrology. Renal CT reporting placement of right ureteral stent with resolution of right hydronephrosis, resolution of 2 large right renal calcifications 1 in the UPJ and the other in the lower pole of the right kidney, persistent bilateral nonobstructing renal calcifications. 11/18/2024 Evaluated by neurology yesterday regarding numbness of left hand and lower lip. Patient denied left hand numbness to neurologist at the time of his examination. This morning reports no left hand numbness, lower lip numbness "better".brain CT performed reporting no acute intracranial hemorrhage or midline shift, no significant change from most recent prior CT. vitamin B12 630, folate 6.7. Continue 100% of dinner, breakfast recently arrived at bedside. Maintained on bicarb drip.24-hour I&O inaccurate. labs pending. Afebrile, Tmax 99, urine culture in progress. 11/19/2024 Dillan is admitted for acute renal failure and metabolic encephalopathy. He underwent a right ureteral stent after being admitted several weeks ago for hematuria and nephrolithiasis. He is kidney function continue to improve. His mentation continues to improve. He has no significant plaints today other than right hip pain. Vital signs show he is afebrile heart rate 88 respirate 17 blood pressure stable pulse oximetry 97% on room air. GFR today is now 12. November 20, 2024: Patient continues to be stable and improving. He remains on D5 water at 130 cc/h. He continues oral intake but it is minimal. He remains on her and asked for his anemia Eliquis for A-fib anticoagulation and his other home medications. He denies any chest pains pressure shortness of breath nausea or vomiting today. Vital signs remained stable. He remains afebrile. Labs for today are pending. Most recently GFR from yesterday is 15. Creatinine 4.64. Nephrology consultation reviewed. Regarding his right hip pain, right hip x-ray failed to show any abnormalities. Today's urine is much clear and strawlike. 11/21/2024 urine culture finalized with E. coli, Enterobacter cloque, enteric coccus faecalis. Zosyn initiated, ID consulted. Oral intake improving,renal function improving -yesterday GFR 18, creatinine decreased to 3.95. nephrology reporting no need for renal biopsy or urgent hemodialysis at this time. Labs pending. Spontaneously voiding, 11/22/2024 urology reports chemical analysis of renal calculi reported uric acid composition, recommending treatment with urinary alkalinization to dissolve calculi. Maintained on Zosyn for UTI, Enterococcus and Enterobacter. Afebrile, WBC within normal limits. Hemoglobin decreased to 7.5, platelets 254, no active bleeding noted-denies bleeding. sodium 141, potassium 4.8, bicarb 21.2, BUN 34.6, creatinine increased to 4. blood sugars controlled. 11/23/24 staff reports bladder scan of 64 mL at approximately 8 PM , this a.m.'s bladder scan pending.Hemoglobin increased to 8.2. Continues on Zosyn, afebrile, normal WBC. Bicarb 20 BUN 36, creatinine decreased to 3.59. Blood sugars controlled. Showered this morning, tolerated exertion well. 11/24/2024 ambulated with PT in hallway today, tolerated exertion well. Urine appears darker this morning ,repeat renal ultrasound ordered. Hemoglobin decreased to 7.1, bicarb 21, BUN 32.5, creatinine increased to 3.9. Maintained on IV fluid hydration. Continues on Zosyn, afebrile, normal white count. 11/25/2024 repeat renal ultrasound ordered reporting no evidence of obstructive uropathy, bilateral nonobstructing renal calculi, right renal cyst measuring up to 7 cm, multiple bladder stones layering dependently. Tea colored urine. bicarb 18.9, bicarb drip ordered. BUN 28.7, creatinine decreased to 3.4. Hemoglobin 7.2. Maintained on aranesp. continues on Zosyn. Diet intake improving. Reports left upper quadrant abdominal discomfort. Ambulated in the hallway yesterday, tolerated exertion well. 11/28/2024 on Thursday11/26/24 hemoglobin dropped to 6.8, received 1 unit of packed RBCs. Currently hemoglobin, 8.7, bicarb 25, BUN 22, creatinine 2.56 potassium 3.9, magnesium 2. Maintained on oral bicarb. Denies pain. Denies chest pain, palpitations or shortness of breath. Ambulating, tolerating exertion well. Denies lightheadedness, dizziness or focal deficits. Patient has been cleared for discharge by urology, nephrology, infectious disease. Infectious disease recommending Augmentin and Cipro x 1 week. Renal/dosing confirmed/verified with pharmacy.Close monitoring of hemoglobin, bicarb, BUN, creatinine and magnesium outpatient.Close monitoring of hemoglobin, bicarb, BUN, creatinine and magnesium outpatient. Patient's CBC, BMP, magnesium ordered for this Saturday, November 30, 2024. Patient will be discharged home today in a stable condition with guarded prognosis. Microbiology 11/15/24 20:40 Urine,Voided Urine Culture - Final Enterobacter cloacae Enterococcus faecalis The impression and plan of care has been dictated as directed. : I performed a history and examination of this patient, discussed the same with the dictator. I agree with the dictator's note ,documented as a scribe. Any additional findings or plans will be noted. Patient Condition at Discharge: Stable Plan - Discharge Summary Discharge Rx Participant: No New Discharge Prescriptions: New Lactobacillus Acidophilus [Acidophilus Probiotic] 1 each PO DAILY #30 capsule Darbepoetin Levon [Aranesp] 40 mcg SQ Q7D each HYDROcodone/APAP 5-325MG [[place] 5-325] 1 tab PO Q6HR PRN 3 Days #12 tab PRN Reason: Pain Folic Acid 1 mg PO DAILY #30 tab Sodium Bicarbonate Tab 650 mg PO BID #60 tab Calcium Carbonate [Tums] 500 mg PO TID PRN tab PRN Reason: Heartburn Continue Pantoprazole [Protonix] 40 mg PO DAILY Dicyclomine [Bentyl] 10 mg PO TID carvediloL [Coreg] 6.25 mg PO BID Insulin Lispro [humaLOG Kwikpen] See Protocol SQ AC-TID Sertraline [Zoloft] 100 mg PO TID Acetaminophen Tab [Tylenol] 650 mg PO Q6HR PRN tab PRN Reason: Mild Pain Or Fever > 100.5 Tamsulosin [Flomax] 0.4 mg PO BID Gabapentin [Neurontin] 100 mg PO TID Atorvastatin [Lipitor] 80 mg PO DAILY Baclofen 5 mg PO BID Loperamide [Imodium] 2 mg PO QID Ondansetron [Zofran] 8 mg PO TID droNABinol [Marinol] 2.5 mg PO BID Apixaban [Eliquis] 5 mg PO BID Megestrol [Megace] 400 mg PO AC-BID Sucralfate [Carafate] 1 gm PO AC-BID Cholecalciferol (Vitamin D3) [Vitamin D3 (1250 Mcg = 50,000 Iu)] 1,250 mcg PO WEEKLY Discontinued lisinopriL [Zestril] 5 mg PO DAILY PRN PRN Reason: SBP over 115 HYDROcodone/APAP 10-325MG [[place] 10-325] 1 tab PO Q6HR PRN PRN Reason: Pain metFORMIN HCL 500 mg PO BID Discharge Medication List Atorvastatin [Lipitor] 80 mg PO DAILY 12/20/21 [History] Gabapentin [Neurontin] 100 mg PO TID 12/20/21 [History] Pantoprazole [Protonix] 40 mg PO DAILY 12/20/21 [History] Baclofen 5 mg PO BID 10/25/23 [History] Dicyclomine [Bentyl] 10 mg PO TID 10/25/23 [History] Loperamide [Imodium] 2 mg PO QID 10/25/23 [History] Apixaban [Eliquis] 5 mg PO BID 11/27/23 [History] Ondansetron [Zofran] 8 mg PO TID 11/27/23 [History] carvediloL [Coreg] 6.25 mg PO BID 11/27/23 [History] droNABinol [Marinol] 2.5 mg PO BID 11/27/23 [History] Cholecalciferol (Vitamin D3) [Vitamin D3 (1250 Mcg = 50,000 Iu)] 1,250 mcg PO WEEKLY 10/29/24 [History] Insulin Lispro [humaLOG Kwikpen] See Protocol SQ AC-TID 10/29/24 [History] Megestrol [Megace] 400 mg PO AC-BID 10/29/24 [History] Sertraline [Zoloft] 100 mg PO TID 10/29/24 [History] Sucralfate [Carafate] 1 gm PO AC-BID 10/29/24 [History] Acetaminophen Tab [Tylenol] 650 mg PO Q6HR PRN tab 11/04/24 [Rx] Tamsulosin [Flomax] 0.4 mg PO BID 11/15/24 [History] Folic Acid 1 mg PO DAILY #30 tab 11/23/24 [Rx] Calcium Carbonate [Tums] 500 mg PO TID PRN tab 11/28/24 [Rx] Darbepoetin Levon [Aranesp] 40 mcg SQ Q7D each 11/28/24 [Rx] HYDROcodone/APAP 5-325MG [[place] 5-325] 1 tab PO Q6HR PRN 3 Days #12 tab 11/28/24 [Rx] Lactobacillus Acidophilus [Acidophilus Probiotic] 1 each PO DAILY #30 capsule 11/28/24 [Rx] Sodium Bicarbonate Tab 650 mg PO BID #60 tab 11/28/24 [Rx] Follow up Appointment(s)/Referral(s): Yasmeen Spencer MD [STAFF PHYSICIAN] - 1 Week Gunnar Murdock MD [STAFF PHYSICIAN] - 1 Week Berny Carranza Jr, DO [Primary Care Provider] - 3 Days [facility] [NON-STAFF] - 1 Week Ambulatory/Diagnostic Orders: Complete Blood Count w/diff [LAB.AMB] Time Frame: 11/30/24, Location: None Selected Activity/Diet/Wound Care/Special Instructions: Close monitoring of hemoglobin, bicarb, BUN, creatinine and magnesium outpatient. Discharge Disposition: HOME WITH HOME HEALTH SERVICES
--- NOTE | 2024-11-28 14:08 | P.PN ---
Progress Note - Text Progress Note Date: 11/28/24 The patient is in the hospital with acute renal failure.. He did have a stent placed by Dr. Murdock prior to the admission. The stent was in appropriate place.. This was on the right side due to an obstructing stone. He is doing much better and to be discharged home today. He will follow-up with Dr. Murdock next week.
== END 2024-11-28 15:27 | disposition home health service (06) | DRG 682 ==
LOC: EC 17:25 → 5NMEDONC 21:30 → OBSVTOIN 21:31 → 5NMEDONC 11-16 06:10
PROVIDERS: ADMIT Family Medicine; ATTEND Family Medicine
DX: N17.0 Acute kidney failure with tubular necrosis (principal); G93.41 Metabolic encephalopathy; E87.0 Hyperosmolality and hypernatremia; E87.20 Acidosis, unspecified; B95.2 Enterococcus as the cause of diseases classified elsewhere; R47.81 Slurred speech; R29.810 Facial weakness; B96.20 Unspecified Escherichia coli [E. coli] as the cause of diseases classified elsewhere; D63.1 Anemia in chronic kidney disease; E86.0 Dehydration; I48.91 Unspecified atrial fibrillation; I69.351 Hemiplegia and hemiparesis following cerebral infarction affecting right dominant side; E11.9 Type 2 diabetes mellitus without complications; F32.A Depression, unspecified; I10 Essential (primary) hypertension; N20.2 Calculus of kidney with calculus of ureter; Z93.3 Colostomy status; N13.6 Pyonephrosis; I69.322 Dysarthria following cerebral infarction; E78.5 Hyperlipidemia, unspecified; G47.30 Sleep apnea, unspecified; I69.392 Facial weakness following cerebral infarction; K80.20 Calculus of gallbladder without cholecystitis without obstruction; N21.0 Calculus in bladder; N28.1 Cyst of kidney, acquired; R31.0 Gross hematuria; Z79.01 Long term (current) use of anticoagulants; Z79.84 Long term (current) use of oral hypoglycemic drugs; Z79.899 Other long term (current) drug therapy; Z87.442 Personal history of urinary calculi; Z87.891 Personal history of nicotine dependence; Z87.19 Personal history of other diseases of the digestive system
CPT/HCPCS: 36415; 70450; 73502; 74150; 76770; 80048; 80053; 80074; 81001; 82040; 82607; 82728; 82746; 83036; 83540; 83550; 83605; 83735; 83880; 83883; 84100; 84165; 84484; 85025; 85027; 85610; 85730; 86160; 86162; 86225; 86255; 86334; 86850; 86900; 86901; 86920; 87077; 87086; 87186; 87205; 93005; 93880; 96361; 96365; 96366; 96375; 99285

== ENCOUNTER → 2024-12-06 | Outpatient (CLI) | payer OTHER, MEDICARE ==
[2024-12-06 14:21] LABS: Appearance,Urine Turbid (Clear); Bilirubin,Urine Negative (Negative); Blood,Urine Large (Negative); Color,Urine Light Red; Glucose,Urine (UA) Negative (Negative); Ketones,Urine Negative (Negative); Leukocyte Esterase,Urine Small (Negative); Mucus,Urine Occasional /hpf; Nitrite,Urine Negative (Negative); PH, Urine 5.5 (5.0-8.0); Protein,Urine 2+ (Negative); RBC,Urine >182 /hpf (0-5); Specific Gravity,Urine 1.017 (1.001-1.035); Squamous Epithelial Cell,Urine 1 /hpf (0-4); Urobilinogen,Urine <2.0 mg/dL (<2.0); WBC,Urine 30 /hpf (0-5)
[2024-12-06 19:01] LABS: BUN/Creat Ratio 6.73 Ratio (12.00-20.00); Blood Urea Nitrogen 14.8 mg/dL (9.0-27.0); Carbon Dioxide 19.8 mmol/L (21.6-31.8); Chloride 108 mmol/L (96-109); Glucose 117 mg/dL (70-110); Sodium 141 mmol/L (135-145)
== END | disposition home or self-care (01) ==
LOC: LABWHC1 13:18
PROVIDERS: ATTEND Nurse Practitioner Family
DX: N17.9 Acute kidney failure, unspecified (principal)
CPT/HCPCS: 36415; 80048; 81001

== ENCOUNTER → 2024-12-16 | Outpatient (CLI) | payer OTHER, MEDICARE ==
[2024-12-16 15:15] LABS: Basophils # (A) 0.04 X 10*3/uL (0.00-0.10); Basophils % (A) 0.6 %; Eosinophils % (A) 4.3 %; HCT 30.5 % (39.6-50.0); HGB 9.3 g/dL (13.0-17.0); Lymphocytes # (A) 1.88 X 10*3/uL (0.90-5.00); Lymphocytes % (A) 27.1 %; MCH 27.9 pg (27.0-32.0); MCHC 30.5 g/dL (32.0-37.0); MCV 91.6 FL (80.0-97.0); Mean Platelet Volume 11.6 FL (9.5-12.2); Monocytes # (A) 0.42 X 10*3/uL (0.20-1.00); Monocytes % (A) 6.1 %; NRBC Per 100 WBC 0 X 10*3/uL (0.00-0.01); Neutrophils # (A) 4.29 X 10*3/uL (1.80-7.70); Neutrophils % (A) 61.8 %; Platelet Count 272 X 10*3/uL (140-440); RBC 3.33 X 10*6/uL (4.40-5.60); RDW 14.4 % (11.5-14.5); WBC 6.94 X 10*3/uL (4.50-10.00)
[2024-12-16 15:34] LABS: BUN/Creat Ratio 11.11 Ratio (12.00-20.00); Calcium 9.6 mg/dL (8.7-10.3); Carbon Dioxide 20.1 mmol/L (21.6-31.8); Chloride 111 mmol/L (96-109); Glucose 178 mg/dL (70-110); Potassium 3.9 mmol/L (3.5-5.5); Sodium 142 mmol/L (135-145)
== END | disposition home or self-care (01) ==
LOC: LABPAT 11:06
PROVIDERS: ATTEND Urology
DX: N20.0 Calculus of kidney (principal)
CPT/HCPCS: 80048; 85025; 87077; 87086; 87186

== ENCOUNTER 2024-12-22 12:11 | Day surgery (SDC) | payer MEDICARE, OTHER ==
--- NOTE | 2024-12-22 08:57 | P.GSHP ---
History of Present Illness H&P Date: 12/22/24 Chief Complaint: Renal calculi The patient is a 64-year-old male who underwent right ureteral stent insertion on November 03 to relieve obstruction caused by a right UPJ calculus. The calculi were radiolucent, and he was found to have multiple small bladder calculi which were removed and sent for chemical analysis. As suspected, the calculi were of uric acid composition. It was my intent to treat him with urinary alkalinization to dissolve the calculi, but this has been unsuccessful. He now comes for cystoscopy, right ureteral stent removal, and ureteroscopic removal of his right renal calculi. - Cardiovascular Cardiovascular: Reports high blood pressure - Genitourinary (Female) Genitourinary: Reports flank pain, Reports hematuria, Reports kidney stones Past Medical History Past Medical History: CVA/TIA, Diabetes Mellitus, GERD/Reflux, Hyperlipidemia, Hypertension, Sleep Apnea/CPAP/BIPAP Additional Past Medical History / Comment(s): uses CPAP, CEREBRAL BLEED 08/19/22 and 2023 RIGHT SIDE WEAKNESS, kidney stones, had recent kidney failure was inpt approx first week of november 2024 History of Any Multi-Drug Resistant Organisms: None Reported Past Surgical History: Bowel Resection, Heart Catheterization, Hernia Repair Additional Past Surgical History / Comment(s): Colostomy, colonoscopy Past Anesthesia/Blood Transfusion Reactions: No Reported Reaction Smoking Status: Former smoker - Past Family History Sister(s) Family Medical History: Cancer Additional Family Medical History / Comment(s): 1 SISTER FROM ESOPHAGEL CANCER. 1 SISTER HAD BREAST CANCER Medications and Allergies Home Medications Medication Instructions Recorded Confirmed Type Atorvastatin [Lipitor] 80 mg PO DAILY 12/20/21 12/20/24 History Gabapentin [Neurontin] 100 mg PO TID 12/20/21 12/20/24 History Pantoprazole [Protonix] 40 mg PO DAILY 12/20/21 12/20/24 History Baclofen 5 mg PO BID 10/25/23 12/20/24 History Dicyclomine [Bentyl] 10 mg PO TID 10/25/23 12/20/24 History Loperamide [Imodium] 2 mg PO QID 10/25/23 12/20/24 History Apixaban [Eliquis] 5 mg PO BID 11/27/23 12/20/24 History Ondansetron [Zofran] 8 mg PO TID 11/27/23 12/20/24 History carvediloL [Coreg] 6.25 mg PO BID 11/27/23 12/20/24 History droNABinol [Marinol] 2.5 mg PO BID 11/27/23 12/20/24 History Cholecalciferol (Vitamin D3) 1,250 mcg PO WEEKLY 10/29/24 12/20/24 History [Vitamin D3 (1250 Mcg = 50,000 Iu)] Insulin Lispro [humaLOG Kwikpen] See Protocol SQ AC-TID 10/29/24 12/20/24 H istory Megestrol [Megace] 400 mg PO AC-BID 10/29/24 12/20/24 History Sertraline [Zoloft] 100 mg PO TID 10/29/24 12/20/24 History Sucralfate [Carafate] 1 gm PO AC-BID 10/29/24 12/20/24 History Acetaminophen Tab [Tylenol] 650 mg PO Q6HR PRN tab 11/04/24 12/20/24 Rx Tamsulosin [Flomax] 0.4 mg PO BID 11/15/24 12/20/24 History Folic Acid 1 mg PO DAILY #30 tab 11/23/24 12/20/24 Rx Calcium Carbonate [Tums] 500 mg PO TID PRN tab 11/28/24 12/20/24 Rx Darbepoetin Levon [Aranesp] 40 mcg SQ Q7D each 11/28/24 12/20/24 Rx HYDROcodone/APAP 5-325MG [[place] 1 tab PO Q6HR PRN 3 Days #12 tab 11/28/24 12/20/24 Rx 5-325] Lactobacillus Acidophilus 1 each PO DAILY #30 capsule 11/28/24 12/20/24 Rx [Acidophilus Probiotic] Sodium Bicarbonate Tab 650 mg PO BID #60 tab 11/28/24 12/20/24 Rx Allergies Allergy/AdvReac Type Severity Reaction Status Date / Time No Known Allergies Allergy Verified 12/20/24 14:37 Surgical - Exam - General well developed, well nourished, no distress - Respiratory normal respiratory effort - Abdomen Abdomen: soft, non tender, no guarding, no rigid, no rebound - Psychiatric oriented to time, oriented to person, oriented to place, speech is normal, memory intact Results - Imaging CT scan - abdomen: report reviewed, image reviewed Assessment and Plan (1) Renal calculi Status: Acute Code(s): N20.0 - CALCULUS OF KIDNEY SNOMED Code(s): 57244838 Plan: Cystoscopy, right ureteral stent removal, right ureteroscopy with Holmium laser lithotripsy and stone basketing. The procedure has been reviewed in detail with the patient and his . They are aware of potential risks, which include anesthesia, bleeding, infection, and ureteral injury. If the calculi cannot all be adequately fragmented, a secondary procedure may be required.
[2024-12-22 13:11] LABS: Glucose,Whole Blood 123 mg/dL (70-110)
[2024-12-22] MEDS: IV FLUID CONTINUATION 1,000 ML IV ONE (13:12)
[2024-12-22] MEDS: LACTATED RINGERS 1,000 ML IV SCH (13:17)
[2024-12-22] MEDS: DEXAMETHASONE SOD PHOSPHATE 4 MG/ML 1 ML VIAL IV ONE (13:18)
[2024-12-22] MEDS: ONDANSETRON 4 MG/2 ML VIAL IVP ONE (13:18)
[2024-12-22] MEDS: fentaNYL (PF) 50 MCG/ML 2 ML AMP IVP ONE (13:43)
[2024-12-22] MEDS ORDERED: PROPOFOL 10 MG/ML 20 ML VIAL IV ONE (14:37)
[2024-12-22] MEDS ORDERED: SUCCINYLCHOLINE CHLORIDE 200 MG/10 ML VIAL IV ONE (14:37)
[2024-12-22] MEDS ORDERED: NEOSTIGMINE 1 MG/ML 10 ML VIAL ONE (14:37)
[2024-12-22] MEDS ORDERED: LIDOCAINE 1% INJ 10MG/ML (20 ML MDV) ONE (14:37)
[2024-12-22] MEDS ORDERED: fentaNYL (PF) 50 MCG/ML 2 ML AMP ONE (14:37)
[2024-12-22] MEDS ORDERED: ROCURONIUM 10 MG/ML (5 ML VIAL) IV ONE (14:37)
[2024-12-22] MEDS ORDERED: MIDAZOLAM 2 MG/2 ML VIAL ONE (14:37)
[2024-12-22] MEDS ORDERED: GLYCOPYRROLATE 0.2 MG/ML 2 ML VIAL ONE (14:37)
[2024-12-22] MEDS: ceFAZolin 2 GM in DEXTROSE 5% IN WATER 50 ML IVPB PRN (14:42)
[2024-12-22 16:12] VITALS: TEMP 97
--- NOTE | 2024-12-22 16:27 | P.OP ---
Date of Procedure: 12/22/24 Preoperative Diagnosis: Right renal calculi Postoperative Diagnosis: Same Procedure(s) Performed: Cystoscopy, right ureteroscopy with Holmium laser lithotripsy and stone basketing, right ureteral stent change Anesthesia: STACIA Surgeon: Gunnar Murdock Estimated Blood Loss (ml): 20 IV fluids (ml): 300 Pathology: other (Right renal calculus fragment, sent for chemical analysis) Condition: stable Disposition: PACU Indications for Procedure: The patient is a 64-year-old male who underwent right ureteral stent insertion on November 03 to relieve obstruction caused by a right UPJ calculus. The calculi were radiolucent, and he was found to have multiple small bladder calculi which were removed and sent for chemical analysis. As suspected, the calculi were of uric acid composition. It was my intent to treat him with urinary alkalinization to dissolve the calculi, but this has been unsuccessful. He now comes for cystoscopy, right ureteral stent removal, and ureteroscopic removal of his right renal calculi. Operative Findings: #1. Calcified right ureteral stent. #2. Multiple right renal calculi. Description of Procedure: The patient was taken to the operating room and placed in the dorsolithotomy position, with legs supported in Sathya stirrups. The external genitalia was prepped and draped sterilely. The 30 lens was used to introduce the 21-Urdu Rousseau cystoscopic sheath through the urethra and into the bladder under direct vision. The prostatic urethra showed evidence of mild lateral lobe enlargement. The bladder was examined in its entirety. No abnormalities were seen. Grasping forceps were used to grasp the distal end of the right ureteral stent, which was withdrawn along with the cystoscope. The stent was gently pulled out, but it was evident on fluoroscopy that the prox imal curl in the stent did not readily uncurl. Ultimately, the proximal line did uncurl and the stent was removed. The cystoscope was replaced into the bladder. A 0.038 inch Glidewire was passed through the cystoscope. The right ureteral orifice was cannulated, and the Glidewire was advanced up to the renal pelvis. The cystoscope was removed, and an 11/13-Urdu ureteral access catheter was passed over the wire, up to the mid ureter. The Rousseau [employer] flexible ureteroscope was then passed through the ureteral access catheter sheath and advanced under direct vision. Stone fragments intermingled with clot were noted within the proximal ureter. A 1.9 Urdu 0 tip nitinol basket was used to remove this clot and debris. The ureteroscope was then advanced up to the renal pelvis. Each calyx was examined. Multiple calculi were seen, the largest measuring approximately 12 mm located within a midpole calyx. The 272 micron Holmium laser probe was passed through the ureteroscope, and lithotripsy was performed using a combination of dusting and fragmenting. This was done until there were no residual calculus fragments exceeding 1 mm in size. The ureteroscope was slowly withdrawn under direct vision, and several additional calculus fragments were removed from the ureter via stone basketing. Pullout ureteroscopy showed no evidence of ureteral perforation. The Glidewire was left in place, and was backloaded into the cystoscope, which was passed into the bladder. A 26 cm, 6 Urdu double-J ureteral stent was placed over the wire. Proper stent positioning was verified fluoroscopically and endoscopically. The bladder was emptied and the cystoscope removed. The patient tolerated the procedure well and was taken to the recovery room in stable condition. [facility] Report: Procedure Acuity: Elective Stone Size and Location: 12 mm, right midpole calyx Ureteral Dilation: No Ureteral Access Sheath Used: Yes Stone Sent for Analysis: Yes All Stones/Fragments Were Removed with a Basket: No Complications: No Preoperative Antibiotics Given: Yes Stent Placed: Yes If Stent Placed, Was String Left Attached: No If Stent Placed, When is it to be Removed: 2 weeks Discharge Medications: Keflex
[2024-12-22] MEDS: LABETALOL SYRINGE 5 MG/ML (4 ML SYR) IVP STA (16:43)
[2024-12-22] MEDS: hydrALAZINE HCL 20 MG/ML 1 ML VIAL IVP STA (17:18)
[2024-12-22] MEDS ORDERED: hydrALAZINE HCL 20 MG/ML 1 ML VIAL IVP STA (17:28)
[2024-12-22 17:47] VITALS: RESP 18
[2024-12-22] MEDS: HYDROmorphone 0.5 MG/0.5 ML SYRINGE IVP PRN (17:58)
[2024-12-22 18:33] LABS: Glucose,Whole Blood 184 mg/dL (70-110)
[2024-12-22 18:53] VITALS: BP 163/89; PULSE 86
--- NOTE | 2024-12-22 21:06 | FL ---
EXAMINATION TYPE: FL guidance operating room DATE OF EXAM: 12/22/2024 FLUOROSCOPY RT SIDE CYSTO LITHO W/ STENT PLACEMENT FL TIME 9.9 SECONDS, DAP [id number], 1 IMAGE SENT INTO PACS, DR OGELSBY [facility], Workstation: [email or web address], 12/22/2024 9:03 PM
== END 2024-12-22 19:07 | disposition home or self-care (01) ==
LOC: OR 12:11
PROVIDERS: ATTEND Urology
DX: N20.2 Calculus of kidney with calculus of ureter (principal); T83.89XA Other specified complication of genitourinary prosthetic devices, implants and grafts, initial encounter; I10 Essential (primary) hypertension; E11.9 Type 2 diabetes mellitus without complications; E78.5 Hyperlipidemia, unspecified; G47.33 Obstructive sleep apnea (adult) (pediatric); I69.351 Hemiplegia and hemiparesis following cerebral infarction affecting right dominant side; K21.9 Gastro-esophageal reflux disease without esophagitis; F32.A Depression, unspecified; Z79.890 Hormone replacement therapy; Z79.01 Long term (current) use of anticoagulants; Z79.4 Long term (current) use of insulin; Z79.899 Other long term (current) drug therapy; Z87.891 Personal history of nicotine dependence; Z87.442 Personal history of urinary calculi
CPT/HCPCS: 52356; 82365; C2625; C1769; J2250; J0330; J0360; J1100; J2710; J0690; J2405; J2003; J3010; J2704; J1171; J1920; J1596

== ENCOUNTER 2025-01-05 07:41 | Day surgery (SDC) | payer OTHER ==
--- NOTE | 2025-01-05 06:26 | P.GSHP ---
History of Present Illness H&P Date: 01/05/25 Chief Complaint: Right flank pain The patient is a 64-year-old male who underwent right ureteral stent insertion on November 03 to relieve obstruction caused by a right UPJ calculus. The calculi were radiolucent, and he was found to have multiple small bladder calculi which were removed and sent for chemical analysis. As suspected, the calculi were of uric acid composition. It was my intent to treat him with urinary alkalinization to dissolve the calculi, but this has been unsuccessful. He underwent right ureteroscopy with laser lithotripsy on December 22, 2024. His ureteral stent was changed at that time. He now comes for removal of the right ureteral stent, along with removal of any residual right renal calculus fragments. - Constitutional Constitutional: Denies chills, Denies fever - Genitourinary (Male) Genitourinary: Reports flank pain, Reports kidney stones Past Medical History Past Medical History: CVA/TIA, Diabetes Mellitus, Hyperlipidemia, Hypertension, Sleep Apnea/CPAP/BIPAP Additional Past Medical History / Comment(s): uses CPAP, CEREBRAL BLEED 08/19/22 and 2023 RIGHT SIDE WEAKNESS History of Any Multi-Drug Resistant Organisms: None Reported Past Surgical History: Bowel Resection, Heart Catheterization, Hernia Repair Additional Past Surgical History / Comment(s): Colostomy, colonoscopy, kidney stents for kidney stones Past Anesthesia/Blood Transfusion Reactions: No Reported Reaction Smoking Status: Former smoker - Past Family History Sister(s) Family Medical History: Cancer Additional Family Medical History / Comment(s): 1 SISTER FROM ESOPHAGEL CANCER. 1 SISTER HAD BREAST CANCER Medications and Allergies Home Medications Medication Instructions Recorded Confirmed Type Atorvastatin [Lipitor] 80 mg PO DAILY 12/20/21 01/02/25 History Gabapentin [Neurontin] 100 mg PO TID 12/20/21 01/02/25 History Pantoprazole [Protonix] 40 mg PO DAILY 12/20/21 01/02/25 History Baclofen 5 mg PO BID 10/25/23 01/02/25 History Dicyclomine [Bentyl] 10 mg PO TID 10/25/23 01/02/25 History Loperamide [Imodium] 2 mg PO QID 10/25/23 01/02/25 History Apixaban [Eliquis] 5 mg PO BID 11/27/23 01/02/25 History Ondansetron [Zofran] 8 mg PO TID 11/27/23 01/02/25 History carvediloL [Coreg] 6.25 mg PO BID 11/27/23 01/02/25 History droNABinol [Marinol] 2.5 mg PO BID 11/27/23 01/02/25 History Cholecalciferol (Vitamin D3) 1,250 mcg PO WEEKLY 10/29/24 01/02/25 History [Vitamin D3 (1250 Mcg = 50,000 Iu)] Insulin Lispro [humaLOG Kwikpen] See Protocol SQ AC-TID 10/29/24 01/02/25 History Megestrol [Megace] 400 mg PO AC-BID 10/29/24 01/02/25 History Sertraline [Zoloft] 100 mg PO TID 10/29/24 01/02/25 History Sucralfate [Carafate] 1 gm PO AC-BID 10/29/24 01/02/25 History Acetaminophen Tab [Tylenol] 650 mg PO Q6HR PRN tab 11/04/24 01/02/25 Rx Tamsulosin [Flomax] 0.4 mg PO BID 11/15/24 01/02/25 History Folic Acid 1 mg PO DAILY #30 tab 11/23/24 01/02/25 Rx Calcium Carbonate [Tums] 500 mg PO TID PRN tab 11/28/24 01/02/25 Rx Darbepoetin Levon [Aranesp] 40 mcg SQ Q7D each 11/28/24 01/02/25 Rx HYDROcodone/APAP 5-325MG [[place] 1 tab PO Q6HR PRN 3 Days #12 tab 11/28/24 01/02/25 Rx 5-325] Lactobacillus Acidophilus 1 each PO DAILY #30 capsule 11/28/24 01/02/25 Rx [Acidophilus Probiotic] Sodium Bicarbonate Tab 650 mg PO BID #60 tab 11/28/24 01/02/25 Rx Cephalexin [Keflex] 250 mg PO Q8HR #15 capsule 12/22/24 01/02/25 Rx Allergies Allergy/AdvReac Type Severity Reaction Status Date / Time No Known Allergies Allergy Verified 01/02/25 10:54 Surgical - Exam - General well developed, well nourished, no distress - Respiratory normal respiratory effort - Abdomen Abdomen: soft, non tender, no guarding, no rigid, no rebound - Genitourinary normal penis with no external lesions, testicles non-tender - Psychiatric oriented to time, oriented to person, oriented to place, speech is normal, memory intact Assessment and Plan (1) Renal calculi Status: Acute Code(s): N20.0 - CALCULUS OF KIDNEY SNOMED Code(s): 17977703 Plan: Cystoscopy, right ureteral stent removal, right ureteroscopy with Holmium laser lithotripsy and stone basketing. The procedure has been reviewed in detail with the patient and his . They are aware of risks, which include anesthesia, bleeding, infection, and ureteral injury.
[2025-01-05] MEDS: IV FLUID CONTINUATION 1,000 ML IV ONE ×2 (08:14→12:10)
[2025-01-05] MEDS: ONDANSETRON 4 MG/2 ML VIAL IVP ONE (08:40)
[2025-01-05] MEDS: DEXAMETHASONE SOD PHOSPHATE 4 MG/ML 1 ML VIAL IV ONE (08:40)
[2025-01-05] MEDS: LACTATED RINGERS 1,000 ML IV SCH (08:40)
[2025-01-05 08:45] LABS: Glucose,Whole Blood 123 mg/dL (70-110)
[2025-01-05] MEDS: HYDROmorphone 0.5 MG/0.5 ML SYRINGE IVP PRN (08:57)
[2025-01-05] MEDS ORDERED: PHENYLEPHRINE-0.9% NACL SYG 1,000 MCG/10 ML SYRINGE ONE (09:04)
[2025-01-05] MEDS ORDERED: MIDAZOLAM 2 MG/2 ML VIAL ONE (09:04)
[2025-01-05] MEDS ORDERED: SUCCINYLCHOLINE CHLORIDE 200 MG/10 ML VIAL IV ONE (09:04)
[2025-01-05] MEDS ORDERED: LIDOCAINE 1% INJ 10MG/ML (20 ML MDV) ONE (09:04)
[2025-01-05] MEDS ORDERED: fentaNYL (PF) 50 MCG/ML 2 ML AMP ONE (09:04)
[2025-01-05] MEDS ORDERED: PROPOFOL 10 MG/ML 20 ML VIAL IV ONE (09:04)
[2025-01-05] MEDS: ceFAZolin 2 GM in DEXTROSE 5% IN WATER 50 ML IVPB PRN (09:11)
--- NOTE | 2025-01-05 10:44 | P.OP ---
Date of Procedure: 01/05/25 Preoperative Diagnosis: Right renal calculi Postoperative Diagnosis: Same Procedure(s) Performed: Cystoscopy, right ureteral stent removal, right ureteroscopy with Holmium laser lithotripsy and stone basketing Anesthesia: LULI Surgeon: Gunnar Murdock Estimated Blood Loss (ml): 5 IV fluids (ml): 800 Pathology: none sent Condition: stable Disposition: PACU Indications for Procedure: The patient is a 64-year-old male who underwent right ureteral stent insertion on November 03 to relieve obstruction caused by a right UPJ calculus. The calculi were radiolucent, and he was found to have multiple small bladder calculi which were removed and sent for chemical analysis. As suspected, the calculi were of uric acid composition. It was my intent to treat him with urinary alkalinization to dissolve the calculi, but this has been unsuccessful. He underwent right ureteroscopy with laser lithotripsy on December 22, 2024. His ureteral stent was changed at that time. He now comes for removal of the right ureteral stent, along with removal of any residual right renal calculus fragments. Operative Findings: Multiple small right renal calculi measuring up to 5 mm in diameter. Description of Procedure: The patient was taken to the operating room and placed in the dorsolithotomy position, with legs supported in Sathya stirrups. The external genitalia was prepped and draped sterilely. The 30 lens was used to introduce the 21-Nigerian Rousseau cystoscopic sheath through the urethra and into the bladder under direct vision. The prostatic urethra showed evidence of mild lateral lobe enlargement. The bladder was examined in its entirety. No abnormalities were seen. Grasping forceps were used to grasp the distal end of the right ureteral stent, which was removed along with the cystoscope. A 0.038 inch Glidewire was passed through the stent, but the proximal end of the stent was occluded. Therefore, the cystoscope was replaced into the bladder under direct vision, and the Glidewire was advanced through the right ureteral orifice and up to the renal pelvis. The cystoscope was removed, and an 11/13-Nigerian ureteral access catheter was passed over the wire, up to the proximal ureter. The Rousseau [employer] flexible ureteroscope was then passed through the ureteral access catheter sheath, up to the renal pelvis. Each calyx was examined. Calculi were seen in multiple calyces. The largest measured approximately 5 mm and was located within a midpole calyx. 2 upper pole calculi were of similar size. These larger calculi were removed using a 1.9 Nigerian 0 tip nitinol basket. The 272 micron Holmium laser probe was passed through the ureteroscope, and the remaining calculi were treated via popcorning, leaving nothing behind other than dust. Pullout ureteroscopy showed no calculi within the ureter, and no evidence of ureteral trauma. The patient tolerated the procedure well and was taken to the recovery room in stable condition. [facility] Report: Procedure Acuity: Elective Stone Size and Location: 5 mm, right midpole calyx Ureteral Dilation: No Ureteral Access Sheath Used: Yes Stone Sent for Analysis: No All Stones/Fragments Were Removed with a Basket: No Complications: No Preoperative Antibiotics Given: Yes Stent Placed: No Discharge Medications: None
[2025-01-05] MEDS: hydrALAZINE HCL 20 MG/ML 1 ML VIAL IVP STA (10:57)
[2025-01-05 11:02] VITALS: TEMP 97.3
[2025-01-05 11:37] LABS: Glucose,Whole Blood 125 mg/dL (70-110)
[2025-01-05 12:59] LABS: Glucose,Whole Blood 172 mg/dL (70-110)
[2025-01-05 13:28] VITALS: RESP 16
[2025-01-05 13:48] VITALS: BP 165/87; PULSE 74
--- NOTE | 2025-01-05 16:54 | FL ---
EXAMINATION TYPE: FL guidance operating room DATE OF EXAM: 01/05/2025 FLUOROSCOPY R SIDE CYSTO FOR STONES, 19SEC FL TIME, [id number] No images are provided. [facility], , 01/05/2025 4:52 PM
== END 2025-01-05 14:20 | disposition home or self-care (01) ==
LOC: OR 07:41
PROVIDERS: ATTEND Urology
DX: N20.2 Calculus of kidney with calculus of ureter (principal); N21.0 Calculus in bladder; E11.9 Type 2 diabetes mellitus without complications; E78.5 Hyperlipidemia, unspecified; I48.91 Unspecified atrial fibrillation; I10 Essential (primary) hypertension; G47.33 Obstructive sleep apnea (adult) (pediatric); Z86.73 Personal history of transient ischemic attack (TIA), and cerebral infarction without residual deficits; Z98.890 Other specified postprocedural states; Z87.891 Personal history of nicotine dependence; Z80.3 Family history of malignant neoplasm of breast; Z79.4 Long term (current) use of insulin; Z79.01 Long term (current) use of anticoagulants; Z79.02 Long term (current) use of antithrombotics/antiplatelets; Z79.899 Other long term (current) drug therapy
CPT/HCPCS: 84550; 52353; C1769; J2250; J0330; J0360; J1100; J0690; J2405; J2003; J3010; J2704; J1171; J2371

== ENCOUNTER → 2025-02-19 | Outpatient (CLI) | payer MEDICARE ==
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
== END | disposition home or self-care (01) ==
LOC: RADMRIMAIN 17:15
PROVIDERS: ATTEND Family Medicine
DX: M17.11 Unilateral primary osteoarthritis, right knee (principal); M76.51 Patellar tendinitis, right knee